=== PATIENT | male | born 1945 | race Caucasian/White ===

== ENCOUNTER 2017-12-04 13:06 | Inpatient (IN) | payer MEDICARE, OTHER, SELFPAY ==
[2017-12-04] VITALS (11 sets, daily range): BP systolic 117–193; BP diastolic 62–87; PULSE 71–88; RESP 16–20; TEMP 36.7–37.2; O2SAT 94–97; BMI 41.5; BMI 43.6
--- NOTE | 2017-12-04 14:10 | RAD_ITS ---
STUDY: X-RAY - PELVIS AND BILATERAL HIPS REASON FOR EXAM: Male, 72 years old. Bilateral hip pain. TECHNIQUE: Radiological exam, hip, bilateral, with pelvis when performed; minimum of 5 views COMPARISON: None. FINDINGS: There is a non-specific bowel gas pattern. Normal visualized soft tissue structures. Normal bilateral iliac wings, sacroiliac joints and visualized sacrum. Normal bilateral superior and inferior pubic rami. Normal pubic symphysis. Normal bilateral ischial tuberosities. Normal visualized right femoral head. There is osteoarthritic spur formation of the right acetabular rim. There is moderate articular joint space narrowing of the right hip. Normal visualized left femoral head. There is osteoarthritic spur formation of the left acetabular rim. There is moderate articular joint space narrowing of the left hip. RAD/Hips B/L min 2 views w/ Pelvis IMPRESSION: Osteoarthritis of both hip joints. Electronically Signed: Clovis Khan MD at 14:51 EDT Tel [phone], Service support ,
[2017-12-04 14:15] LABS: Mucous, Urine 0 SEEN /hpf (<or=2+)
[2017-12-04 14:24] LABS: Absolute Lymphocyte Count 1.45 X10^3/ul (0.83-4.51); Basophil# 0.02 X10^3/uL; Basophil% 0.1 % (0-1); Color, Urine Yellow (Yellow); Eosinophil# 0.01 X10^3/uL; Eosinophils% 0.1 % (0-5); Glucose, Dipstick Normal (Normal); Hematocrit 43.6 % (40-54); Hemoglobin 14.1 g/dl (13.0-16.5); Ketone-Dipstick 5 mg/dl (Negative); Leukocyte Esterase-Dipstick 500 /ul (Negative); Lymphocyte # 1.45 X10^3/ul (4.0); Lymphocyte % 9.3 % (19-41); Mean Corp Hgb Conc 32.3 g/gl (32-36); Mean Corpuscular Hgb 29.9 pg (27.0-32.0); Mean Corpuscular Volume 92.4 fL (80-94); Mean Platelet Vol. 11.4 fl (6.2-12.0); Monocyte# 1.01 X10^3/uL; Monocyte% 6.5 % (0-10); Neutrophil # 13.03 X10^3/uL (2.7-7.7); Neutrophil % 83.7 % (47-70); Nitrite-Dipstick Positive (Negative); Occult Blood-Urine 250 /ul (Negative); Platelet Count 171 K/mm3 (150-450); Protein-Dipstick 100 mg/dl (Negative); RBC Distribution Width CV 14.6 % (11.6-14.6); RBC Distribution Width SD 48.5 fl (35.1-43.9); Red Blood Count 4.72 M/mm3 (4.6-6.2); Urine Bilirubin Dipstick Negative (Negative); Urine Clarity Sl. Cloudy (Clear); Urine Urobilinogen 1 mg/dl (Normal); White Blood Count 15.6 K/mm3 (4.4-11.0)
--- NOTE | 2017-12-04 14:28 | RAD_ITS ---
STUDY: X-RAY - LUMBAR SPINE REASON FOR EXAM: Male, 72 years old. Weakness. TECHNIQUE: 3 view(s) of the lumbar spine were obtained. COMPARISON: None FINDINGS: Normal lumbar lordosis. There is no substantial scoliosis. There is a normal alignment of the vertebrae. Anterior spondylosis is seen at the L3-L4 level. Mild degree of disc space narrowing at the L4-L5 level. Facet joint osteoarthritis. The soft tissue structures are unremarkable. RAD/Lumbar Spine 2 or 3 Views IMPRESSION: Degenerative changes of the spine, as detailed above. Electronically Signed: Clovis Khan MD at 14:51 EDT Tel [phone], Service support ,
[2017-12-04 14:29] LABS: POSITIVE COUNT NO; POSITIVE DIFFERENTIAL NO; POSITIVE MORPHOLOGY NO
[2017-12-04 14:30] LABS: Bacteria 1+ /hpf (None Seen); Red Blood Cells-Urine 25-50 SEEN /hpf (0-5); Squamous Epithelial Cells - UA 0-5 SEEN /hpf (0-5); White Blood Cells 25-50 SEEN /hpf (0-5)
[2017-12-04 14:38] LABS: Anion Gap 11 (5-15); BUN 25 mg/dL (7-18); BUN/Creat Ratio 12.4 RATIO (10-20); Calcium,Total 9.2 mg/dL (8.5-10.1); Chloride 107 mmol/L (98-107); Creatinine, Serum 2.02 mg/dL (0.70-1.30); EST Glomerular Filtration Rate 35 mL/min (>60); Est Glom Filt Rate - Afr Amer 42 mL/min (>60); Estimated Creatinine Clearance 23.73 ml/min; Glucose 97 mg/dL (74-106); Potassium 3.8 mmol/L (3.5-5.1); Sodium Level 144 mmol/L (136-145)
--- NOTE | 2017-12-04 15:23 | HP.PCM_ITS ---
Problem List (1) Weakness Status: Acute (2) Dysuria Status: Acute History of Present Illness Date of Admission: 12/04/17 Chief Complaint: weakness, dysuria The patient is a 72 year old M with an extensive past medical history as listed below. He was admitted to the ED on 12/04/2017 with complaint of lethargy for 2 days. He also had associated frequency of urination and dysuria. He admitted to assisted fever and chills but denied any cough, any chest pain, any shortness of breath, abdominal pain, any diarrhea vomiting. Review of systems otherwise negative. In the ED, vitals were temperature of 98.1 Fahrenheit was otherwise unremarkable. CMP was significant for creatinine of 2.02 and CBC was significant for cytosis of 15.6. UA was positive for UTI and has been admitted to be managed for UTI. [] Past Medical History Allergies No Known Allergies Allergy (Verified 12/04/17 13:08) Home Medications: Ambulatory Orders Medication Instructions Recorded Allopurinol [Zyloprim] 100 mg PO BIDCM 12/04/17 Amlodipine Besylate [Norvasc] 5 mg PO DAILY 12/04/17 Aspirin E.C. [Ecotrin] 81 mg PO DAILY@0800 12/04/17 Carbidopa/Levodopa [Carbidopa-Levo 1 each PO TID 12/04/17 25-100 mg Odt] Docusate Sodium [Colace] 200 mg PO DAILY 12/04/17 Esomeprazole Magnesium 40 mg PO DAILY 12/04/17 Fluticasone 110 Mcg [Flovent (SP)] 1 puff INHALATION BID 12/04/17 Metformin HCl 500 mg PO DAILY 12/04/17 Metoprolol Succinate [Toprol Xl] 100 mg PO DAILY 12/04/17 Multivit-Min/FA/Vit K/Lycopene 1 each PO DAILY 12/04/17 [One-A-Day Men's 50 Plus Tablet] [place]-3 Fatty Acids/Fish Oil [Fish 1 each PO DAILY 12/04/17 Oil 1,000 mg Capsule] Ropinirole HCl [Requip] 1 mg PO TID 12/04/17 Surgical History: - - CABG, ablation for Afib Psychiatric History: No pertinent psych hx Lives: Spouse/ Significant Other Smoking Status: Former smoker Alcohol: None Drugs: None - *Family History Maternal History Items: Heart Disease, Hypertension Review of Systems Constitutional: Reports: Anorexia, Chills, Fever, Malaise, Weakness, Fatigue Eyes: Denies: Blurred vision HEENT: Denies: Head Aches, Sinus Congestion, Sinus Drainage Cardiovascular: Denies: Chest Pain, Palpitations Respiratory: Denies: Cough, Shortness of Breath, Shortness of breath at rest, Sputum production Gastrointestinal: Denies: Abdominal Pain, Nausea, Vomiting Genitourinary: Reports: Dysuria, Frequency. Denies: Retention, Urgency Musculoskeletal: Denies: Joint Pain, Joint Tenderness Skin: Denies: Rash, Wounds Neurological: Denies: Numbness, Tingling, Focal weakness Psychiatric: Denies: Anxiety, Depression, Homicidal Ideations, Suicidal Ideat ions Hematologic/ Lymphatic: Denies: Easy Bruising, Easy Bleeding VTE Information - Inpt Only VTE Present on Admission: No VTE Pharm Prophylaxis ordered?: Yes Patient Problems: Active and Suspected Problems Weakness (Acute) Dysuria (Acute) - Physical Exam General: Alert, Oriented x3, Cooperative HEENT: Atraumatic, PERRLA, EOMI, Normocephalic Oral: Dry Mucosa Neck: Supple, No JVD, Negative Carotid Bruits Lungs: Clear to auscultation, Normal air movement, No rhonchi, No wheeze, No rales Cardiovascular: Regular rate, Regular Rhythm, Normal S1, Normal S2, No murmurs Abdomen: Bowel Sounds Present, Soft, Non Tender, Non-Distended, No Hepato- splenomegaly, Obese Extremities: No clubbing, No cyanosis, Capillary Refill Less than 3 Seconds, - - mild 1+ bilateral pitting pedal edema Skin: No rashes, No breakdown Musculoskeletal: No Tenderness to Palpation of Joints or Extremities Lymphatic: No Cervical, Supraclavicular, or Inguinal Adenopathy Neurological: Cranial nerves II-XII grossly intact Psych/Mental Status: Normal Affect, Alert and oriented to time, place, person, mood and affect Vital Signs Temp Pulse Resp BP Pulse Ox 98.1 F 79 16 146/74 H 97 12/04/17 13:07 12/04/17 13:07 12/04/17 15:08 12/04/17 13:07 12/04/17 13:07 Oxygen Delivery Method Room Air Weight: 220 lb Body Mass Index (BMI) 41.5 Laboratory Tests Past 24 Hrs 1012/04/17 12/04/17 14:05 14:05 14:05 WBC 15.6 H RBC 4.72 Hgb 14.1 Hct 43.6 MCV 92.4 MCH 29.9 MCHC 32.3 RDW 14.6 RDW Differential 48.5 H Plt Count 171 MPV 11.4 Immature Gran % (Auto) 0.300 Neut % (Auto) 83.7 H Lymph % (Auto) 9.3 L [place] % (Auto) 6.5 Eos % (Auto) 0.1 Baso % (Auto) 0.1 Absolute Neuts (auto) 13.0 H Absolute Lymphs (auto) 1.45 Total Counted Not Reportable Sodium 144 Potassium 3.8 Chloride 107 Carbon Dioxide 26.0 Anion Gap 11 BUN 25 H Creatinine 2.02 H Estim Creat Clear Calc 23.73 Est GFR (MDRD) Af Amer 42 L Est GFR (MDRD) Non-Af 35 L BUN/Creatinine Ratio 12.4 Glucose 97 Calcium 9.2 Urine Color Yellow Urine Clarity Sl. Cloudy Urine pH 5.0 Ur Specific [place] 1.020 Urine Protein 100 H Urine Glucose (UA) Normal Urine Ketones 5 H Urine Occult Blood 250 H Urine Nitrite Positive H Urine Bilirubin Negative Urine Urobilinogen 1 H Ur Leukocyte Esterase 500 H Urine RBC 25-50 SEEN Urine WBC 25-50 SEEN Ur Squamous Epith Cells 0-5 SEEN Urine Bacteria 1+ Urine Mucus 0 SEEN Diagnostic Data Hip/Pelvis X-Ray 12/04/17 14:10 IMPRESSION: Osteoarthritis of both hip joints. Electronically Signed: Clovis Khan MD at 14:51 EDT Tel [phone], Service support , Lumbar Spine X-Ray 12/04/17 14:28 IMPRESSION: Degenerative changes of the spine, as detailed above. Electronically Signed: Clovis Khan MD at 14:51 EDT Tel [phone], Service support , Assessment/Plan All Active Problems Weakness (Acute) Dysuria (Acute) 72-year-old male presenting with lethargy, weakness and dysuria for 2 days. 1. UTI * had associated fever and chills * UA: LE of 500, wbc of 25-50, bacteria 1+ * admit to [facility] with telemetry * CBC showed leucocytosis with wbc of 15.6 * started on IV ceftriaxone in ED; will continue * Urine culture. * IV fluids normal saline @ 100cc/hr to rehydrate him * 2. CHIKA * Creatinine is 2.02 on admission. Baseline is not known. However patient is on metformin so this leads me to think that it is likely an AK I. * likely pre-renal due to decreased intake * hydrate with IVF and monitor Cr * renal USG * hold metformin * 3. Hypertension: on metoprolol 4. Afib s/p ablation: on aspirin. Not on any other oral anticoagulants as it was dced by her doctors at [facility] 5. Diabetes mellitus: metformin on hold o/a of CHIKA. ISS. ACcuchecks ACHS 6. Sleep apnea: on CPAP qhs 7. Gout: on allopurinol DVT prophylaxis: heparin Code status: full code. * Patient and counseled extensively about different types of CODE STATUS including DNR CCA, DNR CC and full code. Patient elects to be full code. Total [id number] time 18 minutes. * Code Visit Inpatient E&M: 05762 Init Hosp L3 Procedures: 89319 Advncd Care Plan 30 Min
--- NOTE | 2017-12-04 15:24 | ED.DCSUM_ITS ---
- ER Visit Summary Date of Service: 12/04/17 Chief Complaint: Weakness History of Present Illness: The patient is a 72 M with bilateral hip pain and leg weakness. Symptoms started today. The last time this happened he fell and he developed rhabdomyolysis. He did not fall this time, but was concerned catrachita use he could not ambulate at his home. He is complaining of occasional hip pain, but denies any now. Denies any back pain. Denies any back surgeries. Denies numbness or focal weakness. Denies fevers or recent illness. Physical Examination: Afebrile and vital signs unremarkable. Nontoxic and in no acute distress. Back is nontender. Hips nontender. Good range of motion. Strength 4 out of 5, symmetric in all lower extremity muscle groups. Sensation intact. Test Results: White count 15.6, BUN 25, creatinine 2.02. Urinalysis shows signs of infection. Cultures pending. X-rays of the pelvis and lumbar spine show chronic changes. Emergency Department Course and Treatment: Patient declined pain medicine. Workup showed a UTI. No evidence of sepsis. He was treated with Rocephin. Cultures were sent. It is possible this is causing his weakness. His x-rays are unremarkable. He does not have any recent trauma. Because of his inability to ambulate, the hospitalist was contacted for admission. Treatment Plan: As above Disposition: Admission Impression: 1. UTI 2. Generalized weakness This note was generated with [employer] dictation software. It may contain incorrect words, spelling, and punctuation that were not noted in review of the chart prior to signing ED Disposition - Plan for ED Patient: Chief Complaint: Back Referrals: Aleksandr Decker MD [Primary Care Provider] -
[2017-12-04] MEDS: 0.9% Normal Saline 1,000 ML 125 ML IV (17:18)
[2017-12-04] MEDS: 0.9% NaCl Peripheral Flush Adult/Peds IV (17:19)
[2017-12-04 17:31] LABS: Bedside Glucose 92 mg/dL (70-110)
[2017-12-04] MEDS: Ceftriaxone 1 GM/50 ML BAG IV (18:09)
[2017-12-04] MEDS: Allopurinol 100 MG Tablet PO (18:10)
[2017-12-04] MEDS: amLODIPine 5 MG Tablet PO (18:12)
[2017-12-04] MEDS: Carbidopa/Levodopa 25/100 Tablet PO (18:13)
[2017-12-04] MEDS: Budesonide Respules 0.5 MG/2 ML AMPUL.NEB. INHALATION (19:30)
[2017-12-04] MEDS: Glucerna Shake 120 ML LIQUID PO (21:43)
[2017-12-04] MEDS: Heparin Injection (Vial) 5,000 UNIT/ML VIAL 5000 UNIT SC (21:43)
[2017-12-04] MEDS: Pramipexole Di-HCl 0.5 MG Tablet PO (21:43)
[2017-12-04 21:51] LABS: Bedside Glucose 145 mg/dL (70-110)
[2017-12-05] VITALS (17 sets, daily range): BP systolic 126–165; BP diastolic 61–87; PULSE 71–87; RESP 15–24; TEMP 36.7–37.4; O2SAT 93–99
[2017-12-05] MEDS: 0.9% Normal Saline 1,000 ML 125 ML IV (01:30)
[2017-12-05 06:13] LABS: Absolute Neutrophil Count 12.2 X10^3/uL (2.0-7.7); Basophil# 0.01 X10^3/uL; Basophil% 0.1 % (0-1); Eosinophil# 0.05 X10^3/uL; Eosinophils% 0.4 % (0-5); Hematocrit 39.3 % (40-54); Hemoglobin 12.7 g/dl (13.0-16.5); Lymphocyte % 7.1 % (19-41); Mean Corp Hgb Conc 32.3 g/gl (32-36); Mean Corpuscular Hgb 29.8 pg (27.0-32.0); Mean Corpuscular Volume 92.3 fL (80-94); Mean Platelet Vol. 10.9 fl (6.2-12.0); Monocyte# 0.81 X10^3/uL; Monocyte% 5.8 % (0-10); Neutrophil # 12.18 X10^3/uL (2.7-7.7); Neutrophil % 86.4 % (47-70); Platelet Count 133 K/mm3 (150-450); RBC Distribution Width CV 14.7 % (11.6-14.6); RBC Distribution Width SD 48.6 fl (35.1-43.9); Red Blood Count 4.26 M/mm3 (4.6-6.2); White Blood Count 14.1 K/mm3 (4.4-11.0)
[2017-12-05] MEDS: Heparin Injection (Vial) 5,000 UNIT/ML VIAL 5000 UNIT SC ×3 (06:17→22:29)
[2017-12-05] MEDS: Carbidopa/Levodopa 25/100 Tablet PO ×3 (06:18→16:56)
[2017-12-05] MEDS: Pramipexole Di-HCl 0.5 MG Tablet PO ×3 (06:18→22:29)
[2017-12-05 06:26] LABS: POSITIVE COUNT NO; POSITIVE DIFFERENTIAL NO; POSITIVE MORPHOLOGY NO
[2017-12-05 06:31] LABS: Bedside Glucose 126 mg/dL (70-110)
[2017-12-05 06:33] LABS: Anion Gap 8 (5-15); BUN 20 mg/dL (7-18); BUN/Creat Ratio 13.5 RATIO (10-20); Calcium,Total 8.6 mg/dL (8.5-10.1); Chloride 107 mmol/L (98-107); Creatinine, Serum 1.48 mg/dL (0.70-1.30); EST Glomerular Filtration Rate 49 mL/min (>60); Est Glom Filt Rate - Afr Amer 60 mL/min (>60); Estimated Creatinine Clearance 32.39 ml/min; Glucose 122 mg/dL (74-106); Potassium 3.3 mmol/L (3.5-5.1); Sodium Level 141 mmol/L (136-145)
[2017-12-05] MEDS: Budesonide Respules 0.5 MG/2 ML AMPUL.NEB. INHALATION ×2 (07:14→18:43)
[2017-12-05] MEDS: Docusate Sodium 100 MG Capsule 200 MG PO (07:41)
[2017-12-05] MEDS: Multivitamins,Therapeutic Tablet 1 TABLET PO (07:41)
[2017-12-05] MEDS: Allopurinol 100 MG Tablet PO ×2 (07:41→16:56)
[2017-12-05] MEDS: Pantoprazole Sodium 40 MG Tablet PO (07:41)
[2017-12-05] MEDS: Omega-3 Acid Ethyl Esters 1 GM Capsule PO (07:41)
[2017-12-05] MEDS: Aspirin E.C. 81 MG Tablet PO (07:41)
[2017-12-05] MEDS: Metoprolol(XL)Succ 100 MG Tablet PO (07:42)
[2017-12-05] MEDS: Glucerna Shake 120 ML LIQUID PO ×3 (07:46→16:59)
[2017-12-05] MEDS: Ceftriaxone 1 GM/50 ML BAG IV ×2 (09:54→22:29)
--- NOTE | 2017-12-05 11:15 | CASEMGMT ---
RN CM Face to Face with patient for initial transition planning/care coordination assessment. RN CM introduced self and role at [facility]. Patient lying in bed, alert and oriented. Patient willing to participate in assessment and is able to answer all questions appropriately. Care providers, pharmacy, and demographics verified. Patient wishes to discharge home, denies need for home health at this time. Patient states he has no further needs or concerns at this time. CM to follow for discharge planning needs that may arise. PCP: Jeronimo Specialists: None Preferred Pharmacy: [facility] Insurance: [facility] Living Will/HPOA: Yes, Gely KELLY: . Also has son Living Arrangements: Patient lives with in 2 story home and was independent prior to hospitalization Transportation: Self or son DME/HHC: Patient states that he has shower chair, raised toilet seat, cane, walker, and CPap at home. Patient denies HHC Disposition Plan: Patient to discharge home with family support and follow-up plans in place. Will monitor therapy notes for additional discharge needs. Patti BHATN, RN, CM
--- NOTE | 2017-12-05 11:51 | PCM.PN.HOSP ---
Patient Problems: Active and Suspected Problems Weakness (Acute) Dysuria (Acute) Subjective: Doing well, abdominal pain is controlled, no nausea or vomiting and afebrile Vitals/I&O's: Vital Signs Temp Pulse Resp BP Pulse Ox 99.4 F H 79 22 H 152/71 H 93 12/05/17 07:30 12/05/17 07:59 12/05/17 07:30 12/05/17 07:30 12/05/17 07:54 Oxygen Delivery Method Room Air Weight: 230 lb 12.796 oz Body Mass Index (BMI) 43.6 Intake and Output for Last 24 Hours 12/03/17 12/04/17 12/05/17 23:59 23:59 23:59 Intake Total 450 / 450 1889 / 1890 Balance 450 / 450 1889 / 1889 General: Alert, Oriented x3, Cooperative, No apparent distress HEENT: Atraumatic, EOMI, Normocephalic Oral: Moist Mucosa Neck: Supple, No JVD Lungs: Clear to auscultation, Normal air movement, No rhonchi, No wheeze, No rales Cardiovascular: Regular rate, Regular Rhythm, Normal S1, Normal S2, No murmurs Abdomen: Soft, Non Tender, Non-Distended, No Hepato-splenomegaly Extremities: No edema, Capillary Refill Less than 3 Seconds Skin: No rashes, No breakdown Psych/Mental Status: Normal Affect, Appropriate Microbiology Past 72 Hours 12/04/17 14:05 Urine, Clean Catch Urine Culture - Preliminary Presumptive E. coli Laboratory Results 12/04/17 14:05: WBC 15.6 H, RBC 4.72, Hgb 14.1, Hct 43.6, MCV 92.4, MCH 29.9, MCHC 32.3, RDW 14.6, RDW Differential 48.5 H, Plt Count 171, MPV 11.4, Immature Gran % (Auto) 0.300, Neut % (Auto) 83.7 H, Lymph % (Auto) 9.3 L, [place] % (Auto) 6.5, Eos % (Auto) 0.1, Baso % (Auto) 0.1, Absolute Neuts (auto) 13.0 H, Absolute Lymphs (auto) 1.45, Total Counted Not Reportable 12/04/17 14:05: Sodium 144, Potassium 3.8, Chloride 107, Carbon Dioxide 26.0, Anion Gap 11, BUN 25 H, Creatinine 2.02 H, Estim Creat Clear Calc 23.73, Est GFR (MDRD) Af Amer 42 L, Est GFR (MDRD) Non-Af 35 L, BUN/Creatinine Ratio 12.4, Glucose 97, Calcium 9.2 12/04/17 14:05: Urine Color Yellow, Urine Clarity Sl. Cloudy, Urine pH 5.0, Ur Specific [place] 1.020, Urine Protein 100 H, Urine Glucose (UA) Normal, Urine Ketones 5 H, Urine Occult Blood 250 H, Urine Nitrite Positive H, Urine Bilirubin Negative, Urine Urobilinogen 1 H, Ur Leukocyte Esterase 500 H, Urine RBC 25-50 SEEN, Urine WBC 25-50 SEEN, Ur Squamous Epith Cells 0-5 SEEN, Urine Bacteria 1+, Urine Mucus 0 SEEN 12/04/17 16:52: POC Glucose 92 12/04/17 21:39: POC Glucose 145 H 12/05/17 05:52: WBC 14.1 H, RBC 4.26 L, Hgb 12.7 L, Hct 39.3 L, MCV 92.3, MCH 29.8, MCHC 32.3, RDW 14.7 H, RDW Differential 48.6 H, Plt Count 133 L, MPV 10.9, Immature Gran % (Auto) 0.200, Neut % (Auto) 86.4 H, Lymph % (Auto) 7.1 L, [place] % (Auto) 5.8, Eos % (Auto) 0.4, Baso % (Auto) 0.1, Absolute Neuts (auto) 12.2 H, Absolute Lymphs (auto) 1.00, Total Counted Not Reportable 12/05/17 05:52: Sodium 141, Potassium 3.3 L, Chloride 107, Carbon Dioxide 26.0, Anion Gap 8, BUN 20 H, Creatinine 1.48 H, Estim Creat Clear Calc 32.39, Est GFR (MDRD) Af Amer 60, Est GFR (MDRD) Non-Af 49 L, BUN/Creatinine Ratio 13.5, Glucose 122 H, Calcium 8.6 12/05/17 06:22: POC Glucose 126 H Current [facility]ations [facility] Last Admin: 12/05/17 07:41 Dose: 100 mg Amlodipine Besylate (Norvasc) 5 mg PO QHS [facility] Aspirin (Ecotrin) 81 mg PO DAILY@0800 [facility] Last Admin: 12/05/17 07:41 Dose: 81 mg Budesonide (Pulmicort Aerosol) 0.5 mg INHALATION Q12H.RT [facility] Last Admin: 12/05/17 07:14 Dose: 0.5 mg Carbidopa/Levodopa (Sinemet) 1 tablet PO TIDAC [facility] Last Admin: 12/05/17 06:18 Dose: 1 tablet Dextrose (D50w Syringe) 0 gm IV X1 PRN; Protocol PRN Reason: Hypoglycemia Docusate Sodium (Colace) 200 mg PO DAILY [facility] Last Admin: 12/05/17 07:41 Dose: 200 mg Glucagon () 1 mg IM .X1 PRN PRN Reason: Hypoglycemia Heparin Sodium (Porcine) (Heparin Na) 5,000 unit SC Q8 [facility] Last Admin: 12/05/17 06:17 Dose: 5,000 unit Ceftriaxone Sodium (Rocephin) 1 gm in 50 mls @ 100 mls/hr IV Q12 [facility] Last Admin: 12/05/17 09:54 Dose: 100 mls/hr Insulin Human Lispro (Humalog Kwikpen (Bkc)) 0 unit SQ ACHS [facility]; Protocol Last Admin: 12/05/17 06:23 Dose: Not Given Magnesium Hydroxide (Milk Of Magnesia) 30 ml PO DAILY PRN PRN PRN Reason: Constipation Metoprolol Succinate (Toprol Xl (Beta Sharon)) 100 mg PO DAILY [facility] Last Admin: 12/05/17 07:42 Dose: 100 mg Multivitamins (Multivitamin) 1 tablet PO DAILY@0800 [facility] Last Admin: 12/05/17 07:41 Dose: 1 tablet Nutritional Formula (Lactose Free) (Glucerna Shake) 120 ml PO 4X/DAY [facility] Last Admin: 12/05/17 07:46 Dose: 120 ml Osoza-4-Aufy Ethyl Esters (Lovaza) 1 gm PO DAILY [facility] Last Admin: 12/05/17 07:41 Dose: 1 gm Pantoprazole Sodium (Protonix) 40 mg PO DAILY [facility] Last Admin: 12/05/17 07:41 Dose: 40 mg Pramipexole Dihydrochloride (Mirapex) 0.5 mg PO TID [facility] Last Admin: 12/05/17 06:18 Dose: 0.5 mg Sodium Chloride () 5 - 30 ml IV UD PRN PRN Reason: SALINE FLUSH Last Admin: 12/04/17 17:19 Dose: 10 ml Medical Necessity - Tobacco Use Smoking Status: Former smoker Assessment/Plan All Active Problems Weakness (Acute) Dysuria (Acute) 1. UTI/Weakness/CHIKA - Currently feels better with rocephin - Cx is pending for sensitivities for the E. coli - Will evaluate with PT after another day of abx to see if his debility improves - If not may need SNF at [place] - IVF@100 - Creatinine improved to 1.48 from 2.02 - Renal US pending - Will likely need outpatient urology 2. HTN/Afib s/p ablation - Stable - c/w metoprolol and aspirin 3. DM - Hold metformin - SSI 4. Gout - stable - c/w allopurinol DVT prophylaxis: heparin Code Visit Inpatient E&M: 68654 Subs Hosp L2
--- NOTE | 2017-12-05 11:57 | PN_ITS ---
Patient Problems: Active and Suspected Problems Weakness (Acute) Dysuria (Acute) Subjective: Doing well, abdominal pain is controlled, no nausea or vomiting and afebrile Vitals/I&O's: Vital Signs Temp Pulse Resp BP Pulse Ox 99.4 F H 79 22 H 152/71 H 93 12/05/17 07:30 12/05/17 07:59 12/05/17 07:30 12/05/17 07:30 12/05/17 07:54 Oxygen Delivery Method Room Air Weight: 230 lb 12.796 oz Body Mass Index (BMI) 43.6 Intake and Output for Last 24 Hours 12/03/17 12/04/17 12/05/17 23:59 23:59 23:59 Intake Total 450 / 450 1889 / 1890 Balance 450 / 450 1889 / 1889 General: Alert, Oriented x3, Cooperative, No apparent distress HEENT: Atraumatic, EOMI, Normocephalic Oral: Moist Mucosa Neck: Supple, No JVD Lungs: Clear to auscultation, Normal air movement, No rhonchi, No wheeze, No rales Cardiovascular: Regular rate, Regular Rhythm, Normal S1, Normal S2, No murmurs Abdomen: Soft, Non Tender, Non-Distended, No Hepato-splenomegaly Extremities: No edema, Capillary Refill Less than 3 Seconds Skin: No rashes, No breakdown Psych/Mental Status: Normal Affect, Appropriate Microbiology Past 72 Hours 12/04/17 14:05 Urine, Clean Catch Urine Culture - Preliminary Presumptive E. coli Laboratory Results 12/04/17 14:05: WBC 15.6 H, RBC 4.72, Hgb 14.1, Hct 43.6, MCV 92.4, MCH 29.9, MCHC 32.3, RDW 14.6, RDW Differential 48.5 H, Plt Count 171, MPV 11.4, Immature Gran % (Auto) 0.300, Neut % (Auto) 83.7 H, Lymph % (Auto) 9.3 L, [place] % (Auto) 6.5, Eos % (Auto) 0.1, Baso % (Auto) 0.1, Absolute Neuts (auto) 13.0 H, Absolute Lymphs (auto) 1.45, Total Counted Not Reportable 12/04/17 14:05: Sodium 144, Potassium 3.8, Chloride 107, Carbon Dioxide 26.0, Anion Gap 11, BUN 25 H, Creatinine 2.02 H, Estim Creat Clear Calc 23.73, Est GFR (MDRD) Af Amer 42 L, Est GFR (MDRD) Non-Af 35 L, BUN/Creatinine Ratio 12.4, Glucose 97, Calcium 9.2 12/04/17 14:05: Urine Color Yellow, Urine Clarity Sl. Cloudy, Urine pH 5.0, Ur Specific [place] 1.020, Urine Protein 100 H, Urine Glucose (UA) Normal, Urine Ketones 5 H, Urine Occult Blood 250 H, Urine Nitrite Positive H, Urine Bilirubin Negative, Urine Urobilinogen 1 H, Ur Leukocyte Esterase 500 H, Urine RBC 25-50 SEEN, Urine WBC 25-50 SEEN, Ur Squamous Epith Cells 0-5 SEEN, Urine Bacteria 1+, Urine Mucus 0 SEEN 12/04/17 16:52: POC Glucose 92 12/04/17 21:39: POC Glucose 145 H 12/05/17 05:52: WBC 14.1 H, RBC 4.26 L, Hgb 12.7 L, Hct 39.3 L, MCV 92.3, MCH 29.8, MCHC 32.3, RDW 14.7 H, RDW Differential 48.6 H, Plt Count 133 L, MPV 10.9, Immature Gran % (Auto) 0.200, Neut % (Auto) 86.4 H, Lymph % (Auto) 7.1 L, [place] % (Auto) 5.8, Eos % (Auto) 0.4, Baso % (Auto) 0.1, Absolute Neuts (auto) 12.2 H, Absolute Lymphs (auto) 1.00, Total Counted Not Reportable 12/05/17 05:52: Sodium 141, Potassium 3.3 L, Chloride 107, Carbon Dioxide 26.0, Anion Gap 8, BUN 20 H, Creatinine 1.48 H, Estim Creat Clear Calc 32.39, Est GFR (MDRD) Af Amer 60, Est GFR (MDRD) Non-Af 49 L, BUN/Creatinine Ratio 13.5, Glucose 122 H, Calcium 8.6 12/05/17 06:22: POC Glucose 126 H Current [facility] Last Admin: 12/05/17 07:41 Dose: 100 mg Amlodipine Besylate (Norvasc) 5 mg PO QHS [facility] Aspirin (Ecotrin) 81 mg PO DAILY@0800 [facility] Last Admin: 12/05/17 07:41 Dose: 81 mg Budesonide (Pulmicort Aerosol) 0.5 mg INHALATION Q12H.RT [facility] Last Admin: 12/05/17 07:14 Dose: 0.5 mg Carbidopa/Levodopa (Sinemet) 1 tablet PO TIDAC [facility] Last Admin: 12/05/17 06:18 Dose: 1 tablet Dextrose (D50w Syringe) 0 gm IV X1 PRN; Protocol PRN Reason: Hypoglycemia Docusate Sodium (Colace) 200 mg PO DAILY [facility] Last Admin: 12/05/17 07:41 Dose: 200 mg Glucagon () 1 mg IM .X1 PRN PRN Reason: Hypoglycemia Heparin Sodium (Porcine) (Heparin Na) 5,000 unit SC Q8 [facility] Last Admin: 12/05/17 06:17 Dose: 5,000 unit Ceftriaxone Sodium (Rocephin) 1 gm in 50 mls @ 100 mls/hr IV Q12 [facility] Last Admin: 12/05/17 09:54 Dose: 100 mls/hr Insulin Human Lispro (Humalog Kwikpen (Bkc)) 0 unit SQ ACHS [facility]; Protocol Last Admin: 12/05/17 06:23 Dose: Not Given Magnesium Hydroxide (Milk Of Magnesia) 30 ml PO DAILY PRN PRN PRN Reason: Constipation Metoprolol Succinate (Toprol Xl (Beta [place])) 100 mg PO DAILY [facility] Last Admin: 12/05/17 07:42 Dose: 100 mg Multivitamins (Multivitamin) 1 tablet PO DAILY@0800 [facility] Last Admin: 12/05/17 07:41 Dose: 1 tablet Nutritional Formula (Lactose Free) (Glucerna Shake) 120 ml PO 4X/DAY [facility] Last Admin: 12/05/17 07:46 Dose: 120 ml Hnclv-[id number] Ethyl Esters (Lovaza) 1 gm PO DAILY [facility] Last Admin: 12/05/17 07:41 Dose: 1 gm Pantoprazole Sodium (Protonix) 40 mg PO DAILY [facility] Last Admin: 12/05/17 07:41 Dose: 40 mg Pramipexole Dihydrochloride (Mirapex) 0.5 mg PO TID [facility] Last Admin: 12/05/17 06:18 Dose: 0.5 mg Sodium Chloride () 5 - 30 ml IV UD PRN PRN Reason: SALINE FLUSH Last Admin: 12/04/17 17:19 Dose: 10 ml Medical Necessity - Tobacco Use Smoking Status: Former smoker Assessment/Plan All Active Problems Weakness (Acute) Dysuria (Acute) 1. UTI/Weakness/CHIKA - Currently feels better with rocephin - Cx is pending for sensitivities for the E. coli - Will evaluate with PT after another day of abx to see if his debility improves - If not may need SNF at [place] - IVF@100 - Creatinine improved to 1.48 from 2.02 - Renal US pending - Will likely need outpatient urology 2. HTN/Afib s/p ablation - Stable - c/w metoprolol and aspirin 3. DM - Hold metformin - SSI 4. Gout - stable - c/w allopurinol DVT prophylaxis: heparin Code Visit Inpatient E&M: 50953 Subs Hosp L2
[2017-12-05 12:10] LABS: Bedside Glucose 111 mg/dL (70-110)
[2017-12-05 17:06] LABS: Bedside Glucose 117 mg/dL (70-110)
[2017-12-05] MEDS: BRIMONIDINE 0.2% 5ML BOTTLE 1 DRP OPHTHALMIC (22:28)
[2017-12-05] MEDS: amLODIPine 5 MG Tablet PO (22:29)
[2017-12-05] MEDS: 0.9% NaCl Peripheral Flush Adult/Peds IV (22:30)
[2017-12-05 22:51] LABS: Bedside Glucose 103 mg/dL (70-110)
[2017-12-06] VITALS (10 sets, daily range): BP systolic 151–165; BP diastolic 70–90; PULSE 71–91; RESP 16–20; TEMP 36.7–37.1; O2SAT 94–95
--- NOTE | 2017-12-06 05:49 | EKG12_ITS ---
Test Reason : RHYTHM CHANGE Blood Pressure : / mmHG Vent. Rate : 082 BPM Atrial Rate : 082 BPM P-R Int : 178 ms QRS Dur : 132 ms QT Int : 438 ms P-R-T Axes : 019 131 009 degrees QTc Int : 511 ms Normal sinus rhythm Right bundle branch block Left posterior fascicular block Bifascicular block Abnormal ECG No previous ECGs available Confirmed by BUDDY OLMEDO ([id number]), editor farm journal PAT FLORES ([id number]) on 12/12/2017 11:36:52 AM Referred By: BAHMAN Confirmed By:BUDDY OLMEDO
[2017-12-06 06:09] LABS: Absolute Lymphocyte Count 1.18 X10^3/ul (0.83-4.51); Absolute Neutrophil Count 8.2 X10^3/uL (2.0-7.7); Basophil# 0.03 X10^3/uL; Basophil% 0.3 % (0-1); Eosinophils% 1.9 % (0-5); Hematocrit 41.7 % (40-54); Hemoglobin 13.1 g/dl (13.0-16.5); Lymphocyte # 1.18 X10^3/ul (4.0); Lymphocyte % 11.3 % (19-41); Mean Corp Hgb Conc 31.4 g/gl (32-36); Mean Corpuscular Hgb 29.8 pg (27.0-32.0); Mean Corpuscular Volume 94.8 fL (80-94); Mean Platelet Vol. 11.3 fl (6.2-12.0); Monocyte% 7.7 % (0-10); Neutrophil # 8.19 X10^3/uL (2.7-7.7); Neutrophil % 78.4 % (47-70); Platelet Count 122 K/mm3 (150-450); RBC Distribution Width CV 14.9 % (11.6-14.6); RBC Distribution Width SD 48.5 fl (35.1-43.9); White Blood Count 10.4 K/mm3 (4.4-11.0)
[2017-12-06 06:14] LABS: POSITIVE COUNT NO; POSITIVE DIFFERENTIAL NO; POSITIVE MORPHOLOGY NO
[2017-12-06] MEDS: Heparin Injection (Vial) 5,000 UNIT/ML VIAL 5000 UNIT SC ×2 (06:23→14:02)
[2017-12-06] MEDS: Carbidopa/Levodopa 25/100 Tablet PO ×2 (06:23→11:37)
[2017-12-06] MEDS: Pramipexole Di-HCl 0.5 MG Tablet PO ×2 (06:23→14:02)
[2017-12-06 06:31] LABS: Anion Gap 7 (5-15); BUN 18 mg/dL (7-18); BUN/Creat Ratio 12.5 RATIO (10-20); Calcium,Total 8.5 mg/dL (8.5-10.1); Chloride 108 mmol/L (98-107); Creatinine, Serum 1.44 mg/dL (0.70-1.30); EST Glomerular Filtration Rate 51 mL/min (>60); Est Glom Filt Rate - Afr Amer 62 mL/min (>60); Estimated Creatinine Clearance 33.29 ml/min; Glucose 104 mg/dL (74-106); Potassium 4.1 mmol/L (3.5-5.1); Sodium Level 136 mmol/L (136-145)
[2017-12-06 07:05] LABS: Bedside Glucose 94 mg/dL (70-110)
[2017-12-06] MEDS: Budesonide Respules 0.5 MG/2 ML AMPUL.NEB. INHALATION (07:23)
[2017-12-06] MEDS: Omega-3 Acid Ethyl Esters 1 GM Capsule PO (08:19)
[2017-12-06] MEDS: Pantoprazole Sodium 40 MG Tablet PO (08:19)
[2017-12-06] MEDS: Allopurinol 100 MG Tablet PO (08:19)
[2017-12-06] MEDS: Aspirin E.C. 81 MG Tablet PO (08:19)
[2017-12-06] MEDS: BRIMONIDINE 0.2% 5ML BOTTLE 1 DRP OPHTHALMIC (08:19)
[2017-12-06] MEDS: Metoprolol(XL)Succ 100 MG Tablet PO (08:19)
[2017-12-06] MEDS: Docusate Sodium 100 MG Capsule 200 MG PO (08:19)
[2017-12-06] MEDS: Glucerna Shake 120 ML LIQUID PO (08:20)
[2017-12-06] MEDS: Multivitamins,Therapeutic Tablet 1 TABLET PO (08:20)
[2017-12-06] MEDS: Ceftriaxone 1 GM/50 ML BAG IV (10:31)
[2017-12-06] MEDS: 0.9% NaCl Peripheral Flush Adult/Peds IV (10:31)
[2017-12-06 11:46] LABS: Bedside Glucose 129 mg/dL (70-110)
[2017-12-06] MEDS: Magnesium Hydroxide 30 ML UDC PO (14:02)
--- NOTE | 2017-12-06 14:24 | DCINST_ITS ---
- Discharge Diagnoses Current Active Problems: Current Active and Chronic Problems Weakness (Acute) Dysuria (Acute) You will use the following diet at home:: Calorie/Carbohydrate Controlled (specify 1200, 1400, etc) Your food should be the consistency of: Regular Your liquids should be the consistency of: Regular/Thin Discharge Activity: No Restrictions Call your doctor if you observe: Fever of 101 or Higher, Inability to urinate Allergies/Adverse Reactions: Allergies No Known Allergies Allergy (Verified 12/04/17 13:08) Medications to take at Discharge Allopurinol [Zyloprim] 100 mg PO BIDCM 12/04/17 Amlodipine Besylate [Norvasc] 5 mg PO DAILY 12/04/17 Aspirin E.C. [Ecotrin] 81 mg PO DAILY@0800 12/04/17 Carbidopa/Levodopa [Carbidopa-Levo 25-100 mg Odt] 1 each PO TID 12/04/17 Docusate Sodium [Colace] 200 mg PO DAILY 12/04/17 Esomeprazole Magnesium 40 mg PO DAILY 12/04/17 Fluticasone 110 Mcg [Flovent 110 Mcg] 1 puff INHALATION BID 12/04/17 Metformin HCl 500 mg PO DAILY 12/04/17 Metoprolol Succinate [Toprol Xl] 100 mg PO DAILY 12/04/17 Multivit-Min/FA/Vit K/Lycopene [One-A-Day Men's 50 Plus Tablet] 1 each PO DAILY 12/04/17 [place]-3 Fatty Acids/Fish Oil [Fish Oil 1,000 mg Capsule] 1 each PO DAILY 12/04/17 Ropinirole HCl [Requip] 1 mg PO TID 12/04/17 Brimonidine Tartrate 0.2% [Brimonidine 0.2% 5Ml Bottle] 1 drop OPHTHALMIC BID 12/05/17 Cephalexin [Keflex] 500 mg PO TID #15 capsule 12/06/17 The following prescriptions were given: Cephalexin [Keflex] 500 mg PO TID #15 capsule Primary Care Physician: Aleksandr Decker MD [Primary Care Provider] - Please follow up with your Primary Care Physician in: in 3-5 days Test Results: Test results from this visit will be discussed in further detail at your follow- up appointment, if applicable.
--- NOTE | 2017-12-06 14:25 | PCM.DC.SUM ---
Discharge Date and Diagnosis - Problem List Patient Problems: Active and Suspected Problems Weakness (Acute) Dysuria (Acute) Date of Admission: 12/04/17 Date of Discharge: 12/06/17 - Primary Discharge Diagnosis Active and Suspected Problems Weakness (Acute) Dysuria (Acute) Hospital Course and Treatment Imaging Results: B/L HIP XR: IMPRESSION: Osteoarthritis of both hip joints. Lumbar Spine XR: IMPRESSION: Degenerative changes of the spine, as detailed above. Consults: None Operations: None Procedures: None Summary of Care Provided: Per HPI: The patient is a 72 year old M with an extensive past medical history as listed below. He was admitted to the ED on 12/04/2017 with complaint of lethargy for 2 days. He also had associated frequency of urination and dysuria. He admitted to assisted fever and chills but denied any cough, any chest pain, any shortness of breath, abdominal pain, any diarrhea vomiting. Review of systems otherwise negative. In the ED, vitals were temperature of 98.1 Fahrenheit was otherwise unremarkable. CMP was significant for creatinine of 2.02 and CBC was significant for cytosis of 15.6. UA was positive for UTI and has been admitted to be managed for UTI. Vital Signs - 24 hr Temp Pulse Resp BP BP Pulse Ox 12/06/17 08:19 85 12/06/17 08:00 91 12/06/17 07:45 98.7 F 81 18 159/90 H 95 12/06/17 07:23 82 16 94 12/06/17 05:34 80 12/06/17 03:38 78 158/70 H 94 12/06/17 02:01 98.1 F 86 20 H 165/80 H 95 12/06/17 00:05 79 12/05/17 23:20 74 15 95 12/05/17 22:26 71 159/80 H 12/05/17 20:17 98.1 F 78 20 H 165/81 H 94 12/05/17 20:06 74 12/05/17 18:44 71 20 H 12/05/17 16:58 73 General: Alert, Oriented x3, Cooperative, No apparent distress HEENT: Atraumatic, EOMI, Normocephalic Oral: Moist Mucosa Neck: Supple, No JVD Lungs: Clear to auscultation, Normal air movement, No rhonchi, No wheeze, No rales Cardiovascular: Regular rate, Regular Rhythm, Normal S1, Normal S2, No murmurs Abdomen: Soft, Non Tender, Non-Distended, No Hepato-splenomegaly Extremities: No edema, Capillary Refill Less than 3 Seconds Skin: No rashes, No breakdown Psych/Mental Status: Normal Affect, Appropriate Hopsital Course: 1. UTI/Weakness/CHIKA - Presented with weakness and likely CHIKA though unable to tell what his baseline is since we dont have any records. He was started on rocephin and the urine culture returned with a jewell-sensitive E. coli. He walked well with OT and did want to go home, so he was discharged on keflex 500 mg TID for 5 days with PCP follow-up. On the day of discharge, his creatinine was 1.44 down from 2.02 on admission. 2. His other diagnoses were evaluated and his home medications were continued where appropriate Patient Problems: Active and Suspected Problems Weakness (Acute) Dysuria (Acute) - Physical Exam Vital Signs Temp Pulse Resp BP Pulse Ox 98.7 F 85 18 159/90 H 95 12/06/17 07:45 12/06/17 08:19 12/06/17 07:45 12/06/17 07:45 12/06/17 07:45 Oxygen Delivery Method Room Air Weight: 230 lb 12.796 oz Body Mass Index (BMI) 43.6 Intake and Output for Last 24 Hours 12/04/17 12/05/17 12/06/17 23:59 23:59 23:59 Intake Total 450 / 450 3788 / 3788 884.3 / 884.3 Balance 450 / 450 3788 / 3788 884.3 / 884.3 Microbiology Past 72 Hours 12/04/17 14:05 Urine Culture - Final Urine, Clean Catch Presumptive E. coli Laboratory Tests Past 24 Hrs 12/06/17 12/06/17 05:48 05:48 WBC 10.4 RBC 4.40 L Hgb 13.1 Hct 41.7 MCV 94.8 H MCH 29.8 MCHC 31.4 L RDW 14.9 H RDW Differential 48.5 H Plt Count 122 L MPV 11.3 Immature Gran % (Auto) 0.400 Neut % (Auto) 78.4 H Lymph % (Auto) 11.3 L [place] % (Auto) 7.7 Eos % (Auto) 1.9 Baso % (Auto) 0.3 Absolute Neuts (auto) 8.2 H Absolute Lymphs (auto) 1.18 Total Counted Not Reportable Sodium 136 Potassium 4.1 Chloride 108 H Carbon Dioxide 21.0 Anion Gap 7 BUN 18 Creatinine 1.44 H Estim Creat Clear Calc 33.29 Est GFR (MDRD) Af Amer 62 Est GFR (MDRD) Non-Af 51 L BUN/Creatinine Ratio 12.5 Glucose 104 Calcium 8.5 POC Glucose 12/06/17 12/06/17 12/05/17 11:33 06:20 22:28 POC Glucose 129 H 94 103 12/05/17 16:52 POC Glucose 117 H Discharge Activity: No Restrictions Call your doctor if you observe: Fever of 101 or Higher, Inability to urinate Home Medications: Medications to take at Discharge Allopurinol [Zyloprim] 100 mg PO BIDCM 12/04/17 Amlodipine Besylate [Norvasc] 5 mg PO DAILY 12/04/17 Aspirin E.C. [Ecotrin] 81 mg PO DAILY@0800 12/04/17 Carbidopa/Levodopa [Carbidopa-Levo 25-100 mg Odt] 1 each PO TID 12/04/17 Docusate Sodium [Colace] 200 mg PO DAILY 12/04/17 Esomeprazole Magnesium 40 mg PO DAILY 12/04/17 Fluticasone 110 Mcg [Flovent 110 Mcg] 1 puff INHALATION BID 12/04/17 Metformin HCl 500 mg PO DAILY 12/04/17 Metoprolol Succinate [Toprol Xl] 100 mg PO DAILY 12/04/17 Multivit-Min/FA/Vit K/Lycopene [One-A-Day Men's 50 Plus Tablet] 1 each PO DAILY 12/04/17 [place]-3 Fatty Acids/Fish Oil [Fish Oil 1,000 mg Capsule] 1 each PO DAILY 12/04/17 Ropinirole HCl [Requip] 1 mg PO TID 12/04/17 Brimonidine Tartrate 0.2% [Brimonidine 0.2% 5Ml Bottle] 1 drop OPHTHALMIC BID 12/05/17 Cephalexin [Keflex] 500 mg PO TID #15 capsule 12/06/17 Following Prescrptions Were Given to Patient: Cephalexin [Keflex] 500 mg PO TID #15 capsule Primary Care Physician: Aleksandr Decker MD [Primary Care Provider] - Please follow up with your Primary Care Physician in: in 3-5 days Disposition: Home Minutes spent on discharge:: 35 Patient Condition:: Good Medical Necessity - Tobacco Use Smoking Status: Former smoker Meaningful Use Info Meaningful Use Diagnoses (Choose all that apply): None applicable Code Visit Inpatient E&M: 99835 Disch Hosp
--- NOTE | 2017-12-06 14:32 | NURSING ---
spoke with patient Gely. explained that pt is being discharged today. 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
--- NOTE | 2017-12-06 14:37 | CASEMGMT ---
FER GALINDO followed up with patient regarding discharge plans. Patient walked 155 ft contact guard assist. Patient states he would like to go home and declined need for HHC. FER GALINDO updated patient that should he reconsider and want HHC, he could follow-up with PCP. Patient requested FER GALINDO to assist him to restroom. FER GALINDO assisted patient to restroom with call light in reach and updated FER Orozco and ANUP Cruz. FER GALINDO will continue to follow this paient and plan for a safe discharge.
== END 2017-12-06 16:57 | disposition home or self-care (01) | DRG 690 ==
LOC: ED 14:01 → MS3 15:35
PROVIDERS: Admitting Provider Student in an Organized Health Care Education/Training Program; Emergency Provider Emergency Medicine; Visit Provider Family Medicine
DX: N39.0 Urinary tract infection, site not specified (principal); N17.9 Acute kidney failure, unspecified; Z68.41 Body mass index [BMI] 40.0-44.9, adult; Z79.82 Long term (current) use of aspirin; I10 Essential (primary) hypertension; E11.9 Type 2 diabetes mellitus without complications; Z79.84 Long term (current) use of oral hypoglycemic drugs; M10.9 Gout, unspecified; G47.30 Sleep apnea, unspecified; Z87.891 Personal history of nicotine dependence; B96.20 Unspecified Escherichia coli [E. coli] as the cause of diseases classified elsewhere; E66.9 Obesity, unspecified
CPT/HCPCS: 36415; 72100; 73521; 80048; 81001; 82962; 85025; 87086; 87088; 87186; 93005; 94640; 94660; 97162; 97165; 97530; 97802; 99285; J7030; A4216

== ENCOUNTER 2018-01-04 21:48 | Emergency (ER) | payer MEDICARE, OTHER, SELFPAY ==
[2018-01-04 21:49] VITALS: BP 192/113; PULSE 73; RESP 20; TEMP 36.2; O2SAT 95; BMI 43.4
--- NOTE | 2018-01-04 21:52 | RAD_ITS ---
STUDY: X-RAY - LEFT SHOULDER REASON FOR EXAM: Male, 72 years old. Fall. TECHNIQUE: 3 view(s) of the shoulder. COMPARISON: None. FINDINGS: There is a nondisplaced fracture through the greater tuberosity. There is a probable mildly impacted fracture of the surgical neck of the humerus. No dislocation. The soft tissue structures are unremarkable. Normal visualized pulmonary apex. RAD/Shoulder min 2 Views IMPRESSION: Fracture of the surgical neck, and separate fracture of the greater tuberosity. Electronically Signed: Garrick Fong MD at 22:44 EST , Service support ,
--- NOTE | 2018-01-04 22:41 | ED.VISSUMM ---
- ER Visit Summary Date of Service: 01/04/18 Chief Complaint: Left shoulder pain after mechanical fall History of Present Illness: The patient is a 72 M who had a mechanical fall injuring his left shoulder. Is not been able to move his left upper extremity. He denies paresthesia, anesthesia motors. He denies head trauma. He had loss of conscious. Denies neck pain. He denies cardiac respiratory symptoms. Physical Examination: Vital signs noted and are marked for an elevated blood pressure 192/113. He appears uncomfortable. There is pain abrasion of the proximal humerus. Axillary, median, radial and ulnar function intact. There is no pain the patient over the clavicle or AC joint. No pain abrasion lateral medial epicondyle. Is no pain the patient would like naproxen. There is no pain the patient over the radial head with supination pronation. There is no pain the patient with distal radius ulna, carpal bones, metacarpal bones or phalanges. Radial pulses palpable. Heart is regular without murmur, gallop or rub. S1 and S2 are normal. Lungs are clear to auscultation with good movement of air bilaterally. Test Results: Three-view x-ray of the left shoulder was interpreted by me as positive for a nondisplaced fracture of the greater tuberosity. Emergency Department Course and Treatment: X-ray was obtained per nurse protocol. He will placed in a sling and referred to Dr. Garay. Treatment Plan: Oral analgesia, sling and outpatient orthopedic follow-up Disposition: Discharged home Impression: Proximal humeral fracture (he greater tuberosity nondisplaced) left shoulder initial encounter This note was generated with [employer] dictation software. It may contain incorrect words, spelling, and punctuation that were not noted in review of the chart prior to signing ED Disposition - Plan for ED Patient: Chief Complaint: Upper Extremity Injury Instructions: ED Fx Shoulder Prescriptions: Hydrocodone Bitart/Apap 5-325 [[place] 5MG-325MG] 1 tab PO Q6H PRN PRN 6 Days #20 tab PRN Reason: Pain Referrals: Aleksandr Decker MD [Primary Care Provider] - Leopoldo Garay MD [STAFF PHYSICIAN] - 1 Week
--- NOTE | 2018-01-04 22:45 | ED.DCSUM_ITS ---
- ER Visit Summary Date of Service: 01/04/18 Chief Complaint: Left shoulder pain after mechanical fall History of Present Illness: The patient is a 72 M who had a mechanical fall injuring his left shoulder. Is not been able to move his left upper extremity. He denies paresthesia, anesthesia motors. He denies head trauma. He had loss of conscious. Denies neck pain. He denies cardiac respiratory symptoms. Physical Examination: Vital signs noted and are marked for an elevated blood pressure 192/113. He appears uncomfortable. There is pain abrasion of the proximal humerus. Axillary, median, radial and ulnar function intact. There is no pain the patient over the clavicle or AC joint. No pain abrasion lateral medial epicondyle. Is no pain the patient would like naproxen. There is no pain the patient over the radial head with supination pronation. There is no pain the patient with distal radius ulna, carpal bones, metacarpal bones or phalanges. Radial pulses palpable. Heart is regular without murmur, gallop or rub. S1 and S2 are normal. Lungs are clear to auscultation with good movement of air bilaterally. Test Results: Three-view x-ray of the left shoulder was interpreted by me as positive for a nondisplaced fracture of the greater tuberosity. Emergency Department Course and Treatment: X-ray was obtained per nurse protocol. He will placed in a sling and referred to Dr. Garay. Treatment Plan: Oral analgesia, sling and outpatient orthopedic follow-up Disposition: Discharged home Impression: Proximal humeral fracture (he greater tuberosity nondisplaced) left shoulder initial encounter This note was generated with [employer] dictation software. It may contain incorrect words, spelling, and punctuation that were not noted in review of the chart prior to signing ED Disposition - Plan for ED Patient: Chief Complaint: Upper Extremity Injury Instructions: ED Fx Shoulder Prescriptions: Hydrocodone Bitart/Apap 5-325 [[place] 5MG-325MG] 1 tab PO Q6H PRN PRN 6 Days #20 tab PRN Reason: Pain Referrals: Aleksandr Decker MD [Primary Care Provider] - Leopoldo Garay MD [STAFF PHYSICIAN] - 1 Week
[2018-01-04] MEDS: HYDROcodone Bitartrate/Apap 5/325 Tablet PO ×2 (23:08)
[2018-01-04 23:27] VITALS: BP 159/89; PULSE 76; RESP 22; O2SAT 96
== END 2018-01-04 23:37 | disposition home or self-care (01) ==
LOC: ED 22:46
PROVIDERS: Emergency Provider Emergency Medicine
DX: S42.255A Nondisplaced fracture of greater tuberosity of left humerus, initial encounter for closed fracture (principal); W19.XXXA Unspecified fall, initial encounter; Y93.9 Activity, unspecified; Y92.9 Unspecified place or not applicable; Y99.9 Unspecified external cause status; E66.9 Obesity, unspecified; Z79.82 Long term (current) use of aspirin; Z79.899 Other long term (current) drug therapy
CPT/HCPCS: 73030; 99283

== ENCOUNTER → 2018-04-25 12:06 | Outpatient (CLI) | payer MEDICARE, OTHER, SELFPAY ==
--- NOTE | 2018-04-25 12:09 | RAD_ITS ---
STUDY: SWALLOWING STUDY REASON FOR EXAM: Male, 72 years old. Dysphagia. TECHNIQUE: The examination was performed with Speech Pathology in attendance. Under fluoroscopic observation, the patient ingested thin barium, thick barium, barium pudding, and barium coated cracker. FLUOROSCOPY TIME: 2:38 minutes/seconds. 2443 spot images were obtained. RADIOLOGIST INVOLVEMENT: Radiologist was present and providing direct supervision. COMPARISON: None. FINDINGS: The following was observed during swallowing of the various mixtures of barium: Thin Barium: Transient penetration with ingestion of thin liquids. Thick Barium: There was no evidence of aspiration or laryngeal penetration. Barium Pudding: There was no evidence of aspiration or laryngeal penetration. Barium Coated Cracker: There was no evidence of aspiration or laryngeal penetration. RAD/Swallowing Function w/Video IMPRESSION: Transient penetration with ingestion of thin liquids. The swallow study findings were discussed with the patient by the speech pathologist at the conclusion of the examination. Please see speech pathology report for more information and recommendations. Electronically Signed: Clovis Khan, at 14:13 EDT , Service support ,
--- NOTE | 2018-04-25 12:45 | SP.MBSS_ITS ---
PRIMARY / SECONDARY DIAGNOSIS: dysphagia (R13.10) REFERRING PHYSICIAN: Dr. Aleksandr Decker MD. CURRENT DIET: regular textures, thin liquids DENTITION: WFL MENTAL STATUS: sufficient for participation. RESPIRATORY STATUS: O2 via room air REASON FOR REFERRAL: The Patient is a 72 year old male referred for a modified barium swallow (MBS) study to objectively assess the Patients oropharyngeal swallow function under fluoroscopy secondary to the diagnosis of Parkinson?s disease, with reported dysphagia with both solids and liquids gradually occurring over the past year. The Patient was accompanied to the study by multiple family members, all report intermittent coughing during ingestion, along with diurnal sialorrhea and gradual hypogeusia. MEDICAL HISTORY: Parkinson?s disease, chronic obstructive pulmonary disease, asthma, type II diabetes mellitus, hypertension. PREVIOUS MODIFIED BARIUM SWALLOW STUDY: none ADDITIONAL OBJECTIVE ASSESSMENT RESULTS: 03/30/2016 upper GI series results found to be unremarkable. ASSESSMENT PARAMETERS: The Patient participated in a Modified Barium Swallow (MBS) study on 04/25/2018. Dr. Khan was the radiologist present for this evaluation. This study was recorded in the lateral view and images were sent to PACs for storage. Scoring was completed with each trial through the 8-point Penetration-Aspiration Scale (PAS) and Videofluoroscopic Scale Score (VSS), and summarized via the Modified Barium Swallow Impairment Profile (MBSImP) and Bolus Residue Scale (BRS), with severity scoring through the Dysphagia Severity Rating Scale (DSRS) and Swallowing Performance Scale (PSP), and recommended diet textures through the International Dysphagia Diet Standardisation Initiative (IDDSI). RESULTS OF THE EVALUATION: The Patient presents with moderate oropharyngeal dysphagia (DSRS:4; SPS:5) with transient grade III SILENT aspiration of thin liquids, secondary to the diagnosis of Parkinson?s disease. OBJECTIVE ASSESSMENT OF SWALLOW FUNCTION (QUANTITATIVE ? PER TRIAL): PENETRATION / ASPIRATION SCALE (MAN[place]USO): 1 = does not enter airway 2 = enters airway/above vocal folds/ejected 3 = enters airway/above vocal folds/not ejected 4 = enters airway/contacts vocal folds/ejected 5 = enters airway/contacts vocal folds/not ejected 6 = enters airway/below vocal folds/ejected 7 = enters airway/below vocal folds/not ejected despite effort 8 = enters airway/below vocal folds/no effort VIDEOFLOROSCOPIC SCALE SCORE (MANCUSO): Grade I = aspiration of material that has penetrated into the laryngeal vestibule, intact cough reflex Grade II = aspiration < 10 % of the bolus, intact cough reflex Grade III = aspiration of < 10 % of the bolus, reduced cough reflex or aspiration of > 10 % of the bolus, intact cough reflex Grade IV = aspiration of > 10 % of the bolus, reduced cough reflex PENETRATION / ASPIRATION SCALE (SCORE) WITH VIDEOFLOROSCOPIC SCALE SCORE: Thin liquid - 5 mL tsp.: 5 Thin liquids via cup (single sip): 6 ? Grade III Thin liquids via cup (single sip): 3 Thin liquids via cup (sequential swallows): 6 ? Grade III Thin liquids via cup (single sip): 5 Thin liquids via cup (chin tuck): 1 Thin liquids via cup (chin tuck): 3 [place] thickened liquids via cup (single sip): 1 [place] thickened liquids via cup (single sip): 1 [place] thickened liquids via cup (single sip): 1 Pudding via spoon: 1 Regular textured cookie: 1 [place] thickened liquids via cup (single sip): 1 OBJECTIVE ASSESSMENT OF SWALLOW FUNCTION (QUANTITATIVE ? AGGREGATE): MODIFIED BARIUM SWALLOW IMPAIRMENT PROFILE (MBSImP) LABIAL SEAL: 0 (of 4) no labial escape TONGUE CONTROL: 2 (of 3) posterior escape < 50% BOLUS PREPARATION / MASTICATION: 1 (of 3) slow prolonged; complete recollection BOLUS TRANSPORT / LINGUAL MOTION: 2 (of 4) slowed tongue motion ORAL RESIDUE: 2 (of 4) residue collection on oral structures INITIATION OF PHARYNGEAL SWALLOW: 3 (of 4) bolus head in pyriforms SOFT PALATE ELEVATION: 1 (of 4) trace column between soft palate & pharyngeal wall LARYNGEAL ELEVATION: 1 (of 3) partial superior movement / approximation ANTERIOR HYOID EXCURSION: 1 (of 2) partial anterior movement EPIGLOTTIC MOVEMENT: 0 (of 2) complete = inversion LARYNGEAL VESTIBULE CLOSURE: 1 (of 2) incomplete PHARYNGEAL STRIPPING WAVE: 1 (of 2) present / diminished PE SEGMENT OPENIN (of 3) complete distension / duration; no obstruction TONGUE BASE RETRACTION: 2 (of 4) narrow column of contrast PHARYNGEAL RESIDUE: 1 (of 4) trace residue ESOPHAGEAL BOLUS CLEARANCE: could not view ORAL TOTAL SUM: PHARYNGEAL TOTAL SUM: OVERALL IMPRESSION (OI) SCORE: 17 / 55 BOLUS RESIDUE SCALE (BRS): 2 (of 6) residue in valleculae DYSPHAGIA SEVERITY RATING SCALE (DSRS): 4 (moderate) SWALLOWING PERFORMANCE SCALE (SPS): 5 (moderate) OBJECTIVE ASSESSMENT OF SWALLOW FUNCTION (QUALITATIVE): ORAL PREPARATORY PHASE: oral preparatory phase marked by mild (albeit effective) mastication inefficiency with sufficient oral containment; preserved management of breathing / bolus formation without disrupted E ? S ? E pattern ORAL TRANSITIONAL PHASE: oral transitional phase marked by slowed bolus manipulation / transportation without discoordinated lingual movements (tremor / undulations); sufficient oral clearance; sufficient oral containment across textures. PHARYNGEAL PHASE: pharyngeal phase marked by mild pharyngeal phase delay / dyssynchrony resulting in consistent pre-prandial and prandial penetration of thin liquids; reduction in hyolaryngeal excursion resulting in suboptimal laryngeal vestibule closure / pressure, with inconsistent laryngeal vestibule pressure generated to expel penetrated material; sufficient pharyngeal motility; mild velopharyngeal insufficiency without nasoregurgitation; transient aspiration of thin liquids without cough response. ESOPHAGEAL PHASE: no obvious esophageal phase abnormalities observed. CONTRIBUTING / COMPLICATING FACTORS AND NOTABLE FINDINGS: weak cued volitional cough intensity generated to expel penetrated material (dystussia), with an absent cough in response to transient aspiration (atussia). All deficits managed successfully with bolus rate / volume adjustments, diet texture / viscosity adjustments, and with appropriate RECOMMENDATIONS AND CONSIDERATIONS: The Patient was technically noted to SILENTLY aspirate with thin liquids despite lack of post prandial progression from the vocal folds, with clinical assessment at bedside relying on identification of classic overt signs and symptoms of aspiration considered unreliable. Would strongly discourage advancement past nectar thickened liquids without completion of a repeat modified barium swallow study due to the presence of aspiration without a clear response. Would consider implementation of the [place] Free [place] Protocol (FFWP) following Patient and family education ONLY if the Patient has the adequate level of supervision at home. Recommend aggressive oral care with regular dental cleanings to promote optimal oral health and reduce aspiration related pulmonary complication risk. The Patient requires intensive skilled speech-language intervention targeting diet texture management and training / implementation of recommended compensatory strategies; training and implementation of a home oral care protocol to reduce the effects of xerostomia and improve / maintain the integrity of the oral mucosa reducing the risk of aspiration related pulmonary complications; training, implementation, and Patient / caregiver education regarding implementation of the [place] Free [place] Protocol (FFWP); Patient and caregiver education regarding dysphagia associated with Parkinson?s disease; Patient and caregiver training targeting meal preparation / thickened liquid preparation. Would consider training and implementation of oropharyngeal strengthening exercises to facilitate improved oropharyngeal strength and coordination, though significant improvements are less likely due to the attributed etiology of the Patients swallow deficit. 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 The Patient and the Patient?s family inquired about referrals for a neurologist, would consider further referral for neurological workup and intervention given the diagnosis of Parkinson?s disease (apparently underway). Results and recommendations were discussed with the Patient and Patients family immediately following MBS completion, with the Patient verbalizing understanding and agreement with all recommendations and education provided. DIET TEXTURE RECOMMENDATIONS: Will recommend a mechanical soft textured (IDDSI: 5), [place]ctar thickened liquid (IDDSI: 2) diet RECOMMENDED COMPENSATORY STRATEGIES: Supervision, reduced bolus volume / rate of ingestion, seated upright at 90 degrees during PO intake with a forward / anterior lean, remain upright for 30-60 minutes post meal (GERD precaution), medications one at a time with a liquid chaser; would consider training and implementation of the chin tuck posture. IMAGE COUNT: [id number] Sergio Dewey M.A., CCC-MACHINIST MATE MBSImP Certified, LSVT Certified [facility] Speech-Language Pathology Department [email or web address]
== END ==
DX: R13.10 Dysphagia, unspecified (principal); G20 Parkinson's disease; R49.0 Dysphonia
CPT/HCPCS: 74230; 92611

== ENCOUNTER → 2018-07-12 14:22 | Outpatient (CLI) | payer MEDICARE, OTHER, SELFPAY ==
--- NOTE | 2018-07-12 14:26 | CT_ITS ---
HISTORY: Parkinson's, hernia, diabetes and hypertension. EXAM/TECHNIQUE: CT Head or Brain W/O Contrast: Multiplanar reformats provided. COMPARISON: None. FINDINGS: # of images incl. paperwork: 267 No evidence of intracranial hemorrhage, hydrocephalus mass, or acute infarct. No acute osseous abnormality. Scattered chronic appearing hypodensities in the cerebral white matter. Calcific atherosclerosis of the intracranial arteries. Right greater than left maxillary sinus polyps. Mild partial opacification mastoid air cells. CT/Brain/Head without Contrast IMPRESSION: No acute findings. Individualized dose optimization techniques were used for this CT. at 1517 Reported and signed by: Richard Leahy MD Electronically Signed: Richard Leahy, at 15:16 EDT Tel , Service support ,
== END ==
PROVIDERS: Referring Provider Psychiatry & Neurology Neurology; Visit Provider Psychiatry & Neurology Neurology
DX: G20 Parkinson's disease (principal); R26.9 Unspecified abnormalities of gait and mobility; R13.10 Dysphagia, unspecified
CPT/HCPCS: 70450

== ENCOUNTER 2019-04-09 13:10 | Emergency (ER) | payer MEDICARE, OTHER, SELFPAY ==
[2019-04-09 13:11] VITALS: BP 152/86; PULSE 71; RESP 18; TEMP 36.6; O2SAT 95; BMI 46.0
[2019-04-09 14:43] LABS: Bacteria 0 SEEN /hpf (None Seen); Mucous, Urine 0 SEEN /hpf (<or=2+); Red Blood Cells-Urine 0 SEEN /hpf (0-5); Squamous Epithelial Cells - UA 0 SEEN /hpf (0-5)
[2019-04-09 14:44] LABS: Absolute Lymphocyte Count 1.97 X10^3/uL (0.83-4.51); Absolute Neutrophil Count 5.8 X10^3/uL (2.0-7.7); Basophil# 0.03 X10^3/uL; Basophil% 0.3 % (0-1); Eosinophil# 0.26 X10^3/uL; Hemoglobin 13.4 g/dL (13.0-16.5); Lymphocyte # 1.97 X10^3/ul (4.0); Lymphocyte % 22.6 % (19-41); Mean Corp Hgb Conc 31.9 g/dL (32-36); Mean Corpuscular Hgb 30.2 pg (27.0-32.0); Mean Corpuscular Volume 94.8 fL (80-94); Mean Platelet Vol. 11.1 fl (6.2-12.0); Monocyte# 0.63 X10^3/uL; Monocyte% 7.2 % (0-10); NRBC Flagged by Analyzer 0 % (0-5); Neutrophil # 5.78 X10^3/uL (2.7-7.7); Neutrophil % 66.3 % (47-70); Platelet Count 166 K/mm3 (150-450); RBC Distribution Width CV 14.3 % (11.6-14.6); RBC Distribution Width SD 49.2 fl (35.1-43.9); Red Blood Count 4.43 M/mm3 (4.6-6.2); White Blood Count 8.7 K/mm3 (4.4-11.0)
[2019-04-09 14:50] LABS: Color, Urine Yellow (Yellow); Glucose, Dipstick Normal (Normal); Ketone-Dipstick Negative (Negative); Leukocyte Esterase-Dipstick 25 /ul (Negative); Nitrite-Dipstick Negative (Negative); Occult Blood-Urine Negative /ul (Negative); Protein-Dipstick 30 mg/dl (Negative); Urine Bilirubin Dipstick Negative (Negative); Urine Clarity Clear (Clear); Urine Urobilinogen Normal (Normal)
[2019-04-09 14:58] LABS: Anion Gap 7 (5-15); BUN 24 mg/dL (7-18); BUN/Creat Ratio 12.8 RATIO (10-20); Calcium,Total 9.1 mg/dL (8.5-10.1); Chloride 105 mmol/L (98-107); Creatinine, Serum 1.88 mg/dL (0.70-1.30); EST Glomerular Filtration Rate 37 mL/min (>60); Est Glom Filt Rate - Afr Amer 45 mL/min (>60); Estimated Creatinine Clearance 25.11 ml/min; Glucose 111 mg/dL (74-106); Potassium 3.8 mmol/L (3.5-5.1); Sodium Level 141 mmol/L (136-145); White Blood Cells 0-5 SEEN /hpf (0-5)
--- NOTE | 2019-04-09 15:44 | ED.VISSUMM ---
- ER Visit Summary Date of Service: 04/09/19 Chief Complaint: [. Dysuria and urinary incontinence] History of Present Illness: The patient is a 73 M [presents to the emergency department with his daughter with complaint of some dysuria since this morning. Patient states that his back was hurting and he waited too long to get to the bathroom and was incontinent of urine before he could reach the bathroom. Because he is had some increased pain in his low back over the last couple of days family was concerned that he may have a urinary tract infection which he has had in the past. Patient denies any pain rating down his legs. He denies any back injury. He denies any saddle anesthesia. Daughter also states that patient's not taking his medications like he supposed and is not taking his diuretic for the last 3 days and so his legs are more swollen than usual. Patient denies any significant dyspnea. States he has had a mild cough that just seemed to have started today. He denies any chest pain. He does complain of some generalized weakness.] He has history of chronic back pain and has arthritis in his back and hips. Physical Examination: [HEENT-PERRLA, EOMI. Cranial nerves II through XII grossly intact. TMs clear. Mucous membranes moist. No adenopathy. Cardiovascular-regular rate and rhythm without murmur or ectopy Lungs-clear to auscultation, chest wall stable without crepitus or subcu emphysema Abdomen-normoactive bowel sounds, soft, nontender, no rebound or rigidity, no peritoneal signs. Back exam-no significant tenderness over the thoracic or lumbar spine. No tenderness over the costovertebral angles. Negative straight leg raises. Deep tendon reflexes are plus 2 out of 4 bilaterally at the patella and Achilles. Patient has normal 5 extension. Patient has normal sensation to light touch. Extremities-intact ?4, normal range of motion, normal pulses, atraumatic. Patient has +2 edema both lower extremities but symmetric.] Test Results: [Bladder scan performed showed 86 cc of urine. CBC with differential white of 8.7, hemoglobin 13, hematocrit 42, plates 166. Chemistries unremarkable. BUN was 24 and creatinine 1.88. Urinalysis was normal.] Emergency Department Course and Treatment: [] Treatment Plan: [I had a long discussion with patient and his daughter and offered admission for the generalized weakness and to diurese the patient. Patient would prefer to go home and does not want admission at this time. Patient states that he has Lasix at home and he will take it. I suspect the incontinence was related to not being able to get to the bathroom in time because of the pain in his back.] Disposition: [Discharged home in stable condition] Impression: [Acute exacerbation of chronic back pain Urinary incontinence Generalized weakness] This note was generated with [employer] dictation software. It may contain incorrect words, spelling, and punctuation that were not noted in review of the chart prior to signing ED Disposition - Plan for ED Patient: Referrals: Aleksandr Decker MD [Primary Care Provider] -
--- NOTE | 2019-04-09 15:48 | ED.DEP ---
ED Disposition - Plan for ED Patient: Instructions: BACK PAIN (Acute or Chronic), WEAKNESS, Unk Cause, URINARY INCONTINENCE, Male (Adult) Referrals: Aleksandr Decker MD [Primary Care Provider] - 3-5 Days
[2019-04-09 16:11] VITALS: BP 160/99; PULSE 76; RESP 22; O2SAT 97
== END 2019-04-09 16:11 | disposition home or self-care (01) ==
LOC: ED 14:37
PROVIDERS: Emergency Provider Emergency Medicine
DX: M54.5 Low back pain (principal); G89.29 Other chronic pain; R32 Unspecified urinary incontinence; R30.0 Dysuria; R53.1 Weakness; R05 Cough; G20 Parkinson's disease; E11.9 Type 2 diabetes mellitus without complications; I10 Essential (primary) hypertension; M79.89 Other specified soft tissue disorders; M19.90 Unspecified osteoarthritis, unspecified site; Z79.84 Long term (current) use of oral hypoglycemic drugs; Z79.82 Long term (current) use of aspirin; Z79.899 Other long term (current) drug therapy; Z95.810 Presence of automatic (implantable) cardiac defibrillator; Z95.5 Presence of coronary angioplasty implant and graft
CPT/HCPCS: 80048; 81001; 85025; 99283; A4216

== ENCOUNTER 2019-11-14 18:50 | Inpatient (IN) | payer MEDICARE, OTHER, SELFPAY ==
[2019-11-14] VITALS (14 sets, daily range): BP systolic 112–182; BP diastolic 65–99; PULSE 85–115; RESP 12–36; TEMP 36.2–37.4; O2SAT 79–97; BMI 42.1; BMI 44.3; BMI 44.9; BMI 45.0
--- NOTE | 2019-11-14 19:27 | RAD_ITS ---
STUDY: X-RAY CHEST REASON FOR EXAM: Male, 74 years old. DYSPNEA AND WEAKNESS TECHNIQUE: Single frontal view of the chest. COMPARISON: None. FINDINGS: Left cardiac device. Cardiac silhouette enlarged. Pulmonary vascularity significantly increased. Aorta unremarkable. Patchy multifocal left airspace opacities. No pleural effusions. Upper abdomen unremarkable. Osseous structures intact. No pneumothorax. RAD/Chest 1 View (Portable) IMPRESSION: Findings consistent with CHF/fluid overload as clinically indicated. More confluent patchy multifocal left pulmonary opacities may indicate an acute infectious or malignant process as clinically indicated. Electronically Signed: Polo Hernandez, at 20:39 EDT Tel , Service support ,
--- NOTE | 2019-11-14 19:28 | EKG12_ITS ---
Test Reason : WEAKNESS Blood Pressure : / mmHG Vent. Rate : 111 BPM Atrial Rate : 117 BPM P-R Int : 000 ms QRS Dur : 120 ms QT Int : 330 ms P-R-T Axes : 000 156 025 degrees QTc Int : 448 ms Sinus Tachycardia Low voltage QRS Right bundle branch block Left posterior fascicular block Bifascicular block Cannot rule out Anteroseptal infarct , age undetermined Abnormal ECG Confirmed by FILOMENA BRAVO, ZAC ([id number]), writer editor THOMAS FLORES ([id number]) on 11/18/2019 2:43:12 PM Referred By: KARUNA Confirmed By:LUCIEN BUTT MD
--- NOTE | 2019-11-14 19:29 | ED.DCSUM_ITS ---
History of Present Illness Chief Complaint: Weakness Informant: Patient, Family Narrative: 74-year-old male with increasing shortness of breath and difficulty ambulating. His daughter gives the history as he is very dyspneic. He states he has had leg swelling as well. His doctor told him to increase his Lasix. He was diagnosed with a UTI today which was presumed to be the source of the weakness. His daughter stated that last evening he got too short of breath to go up the stairs and laid on his stomach and slid down the stairway. Past Medical History - Allergies and Home Meds Allergies/Adverse Reactions: Allergies No Known Allergies Allergy (Verified 04/09/19 13:14) Past Medical History: - - Diabetes, hypertension, CHF, pacemaker fibrillator Surgical History: - - CABG, ablation for Afib Lives: With Family Smoking Status: Former smoker - Family History Maternal Family History: Reports: Heart Disease, Hypertension Paternal Family History: Reports: - - History was taken from patient's daughter who is unsure of paternal medical history. She thinks that patient's father had colon cancer. Review of Systems General: Denies: Chills, Fever, Sweats Eyes: Denies: Visual changes - bilaterally, Diplopia ENT: Denies: Rhinorrhea, Sore throat Cardiovascular: Reports: Heart racing. Denies: Chest pain Respiratory: Reports: Dyspnea, Dyspnea on exertion Gastrointestinal: Denies: Abdominal pain, Nausea, Vomiting Genitourinary: Reports: Dysuria Musculoskeletal: Denies: Myalgias, Arthralgias Skin: Denies: Rash, Abscess Neurological: Reports: Weakness - Neurolysed. Denies: Numbness Physical Exam Vital Signs/Narrative: Vital Signs Temp Pulse Resp BP Pulse Ox 11/14/19 19:09 98.1 F 11/14/19 19:05 97.1 F L 85 26 H 139/69 H 91 11/14/19 18:51 97.1 F L 92 18 132/72 H 94 Inital Vital Signs reviewed: Yes General: Obese, Acute Distress Head: Normocephalic, Atraumatic Eyes: Perrl, EOMI ENT: TM's clear Cardiovascular: Regular rhythm, Tachycardia Respiratory: Rales, Decreased Air Movement, - - Speaks in short sentences. Accessory muscle use noted. Abdomen: Soft, Nontender Back: Nontender, Normal Inspection Extremities: Nontender, Tenderness, Edema Skin: Normal color, No rash Neurological: Alert, Oriented x3 Psychological: Normal affect Diagnostic/Tx/Re-eval Clinical Impression(s) from Imaging Studies Chest X-Ray 11/14/19 19:27 IMPRESSION: Findings consistent with CHF/fluid overload as clinically indicated. More confluent patchy multifocal left pulmonary opacities may indicate an acute infectious or malignant process as clinically indicated. Electronically Signed: Polo Hernandez at 20:39 EDT Tel , Service support , Chest X-Ray 11/14/19 21:07 IMPRESSION: Endotracheal tube in a satisfactory position. Bilateral patchy and nodular opacities, may be secondary to multifocal pneumonia, cannot exclude a neoplastic process. Electronically Signed: Monica Rosario MD at 21:44 EDT Tel , Service support , Laboratory Data 11/14/19 11/14/19 11/14/19 19:15 19:15 19:15 WBC 21.0 H RBC 4.49 L Hgb 13.9 Hct 43.3 MCV 96.4 H MCH 31.0 MCHC 32.1 RDW Std Deviation 51.6 H RDW Coeff of Sammi 14.7 H Plt Count 192 MPV 11.9 Immature Gran % (Auto) 0.900 Neut % (Auto) 91.8 H Lymph % (Auto) 4.6 L Grainger % (Auto) 2.5 Eos % (Auto) 0.0 Baso % (Auto) 0.2 Absolute Neuts (auto) 19.1 H Absolute Lymphs (auto) 0.95 Nucleated RBC % 0 PT 15.0 H INR 1.2 APTT 35.8 Specimen Type Sample Site pH Bicarbonate Actual Total CO2 Base Excess O2 Saturation O2 % ABG pCO2 ABG pO2 Respiration Rate O2 Delivery Device Vent Mode Tidal Volume Sodium 141 Potassium 3.9 Chloride 106 Carbon Dioxide 25.0 Anion Gap 10 BUN 48 H Creatinine 3.03 H Estim Creat Clear Calc 16.02 Est GFR (MDRD) Af Amer 26 L Est GFR (MDRD) Non-Af 22 L BUN/Creatinine Ratio 15.8 Glucose 142 H Lactic Acid Calcium 9.2 Total Bilirubin 1.50 H AST 417 H ALT 27 Alkaline Phosphatase 97 Troponin I B-Natriuretic Peptide Total Protein 7.4 Albumin 3.4 Globulin 4.0 Albumin/Globulin Ratio 0.8 L Urine Color Urine Clarity Urine pH Ur Specific [place] Urine Protein Urine Glucose (UA) Urine Ketones Urine Occult Blood Urine Nitrite Urine Bilirubin Urine Urobilinogen Ur Leukocyte Esterase Urine RBC Urine WBC Ur Squamous Epith Cells Urine Bacteria Urine Mucus 11/14/19 11/14/19 11/14/19 19:15 19:15 20:00 WBC RBC Hgb Hct MCV MCH MCHC RDW Std Deviation RDW Coeff of Sammi Plt Count MPV Immature Gran % (Auto) Neut % (Auto) Lymph % (Auto) Grainger % (Auto) Eos % (Auto) Baso % (Auto) Absolute Neuts (auto) Absolute Lymphs (auto) Nucleated RBC % PT INR APTT Specimen Type Sample Site pH Bicarbonate Actual Total CO2 Base Excess O2 Saturation O2 % ABG pCO2 ABG pO2 Respiration Rate O2 Delivery Device Vent Mode Tidal Volume Sodium Potassium Chloride Carbon Dioxide Anion Gap BUN Creatinine Estim Creat Clear Calc Est GFR (MDRD) Af Amer Est GFR (MDRD) Non-Af BUN/Creatinine Ratio Glucose Lactic Acid Calcium Total Bilirubin AST ALT Alkaline Phosphatase Troponin I 71.600 H* B-Natriuretic Peptide 1050.9 H Total Protein Albumin Globulin Albumin/Globulin Ratio Urine Color Red Urine Clarity Cloudy Urine pH 5.0 Ur Specific [place] 1.020 Urine Protein 500 H Urine Glucose (UA) Normal Urine Ketones 5 H Urine Occult Blood 250 H Urine Nitrite Negative Urine Bilirubin Negative Urine Urobilinogen Normal Ur Leukocyte Esterase 500 H Urine RBC > 100 SEEN Urine WBC 0 SEEN Ur Squamous Epith Cells 0-5 SEEN Urine Bacteria 0 SEEN Urine Mucus 0 SEEN 11/14/19 11/14/19 11/14/19 20:25 21:53 22:07 WBC RBC Hgb Hct MCV MCH MCHC RDW Std Deviation RDW Coeff of Sammi Plt Count MPV Immature Gran % (Auto) Neut % (Auto) Lymph % (Auto) Grainger % (Auto) Eos % (Auto) Baso % (Auto) Absolute Neuts (auto) Absolute Lymphs (auto) Nucleated RBC % PT INR APTT 39.4 H Specimen Type ART Sample Site R Radial pH 7.24 L Bicarbonate Actual 26.0 Total CO2 28 Base Excess -1 O2 Saturation 88 L O2 % 100 ABG pCO2 61.0 H ABG pO2 66 L Respiration Rate 15.0000 O2 Delivery Device Adult Vent Vent Mode AC Tidal Volume 500 Sodium Potassium Chloride Carbon Dioxide Anion Gap BUN Creatinine Estim Creat Clear Calc Est GFR (MDRD) Af Amer Est GFR (MDRD) Non-Af BUN/Creatinine Ratio Glucose Lactic Acid 2.5 H* Calcium Total Bilirubin AST ALT Alkaline Phosphatase Troponin I B-Natriuretic Peptide Total Protein Albumin Globulin Albumin/Globulin Ratio Urine Color Urine Clarity Urine pH Ur Specific [place] Urine Protein Urine Glucose (UA) Urine Ketones Urine Occult Blood Urine Nitrite Urine Bilirubin Urine Urobilinogen Ur Leukocyte Esterase Urine RBC Urine WBC Ur Squamous Epith Cells Urine Bacteria Urine Mucus - Rhythm Strip Rhythm Strip: Sinus Tach Rate: 111 - EKG Initial EKG Interpretation: Sinus Rhythm, RBBB - Medical Decision Making 74-year-old male presenting with shortness of breath which is been worsening over the last day. It appears to be heart failure and initial exam. He was started on BiPAP but appear to be getting tired. At this point the decision was made to intubate him. Patient was intubated using RSI with rocuronium and etomidate. 8.0 ET tube was placed on first attempt with glide scope. Patient was confirmed. Patient's daughter also had some concern that there was some component of aspiration. Patient's chest x-ray does show infiltrates as well as heart failure and he does have a 20,000 white count. Lactic acid is 2.5. Patient's creatinine is over 3 which is new from March of this year. Patient was covered with vancomycin and Zosyn. Patient was pancultured. EKG does not show any new changes from previous EKG although his troponin is elevated 71.6. Prior to intubation he was stating that he did not have any chest pain, however his daughter did remember him complaining about his shoulder pain but she does not recall which shoulder. Discussed with cardiology who recommended heparin drip. Patient was also given 40 mg of Lasix IV. Discussed the patient with the hospitalist who accepted admission. Impression: 1. Sepsis 2. CHF exacerbation 3. Pneumonia 4. Acute kidney injury 5. Hypoxic respiratory failure 6. NSTEMI - Critical Care Time Critical care time (excluding procedures): 30-74 minutes, Discussing w/Patient &/or Family/Corporate Responsibility Officer, Discussing w/Consultants, Performing Direct Patient Care at Bedside ED Disposition - Plan for ED Patient: Disposition: Acute Care [facility]
[2019-11-14 19:40] LABS: Hematocrit 43.3 % (40-54); Hemoglobin 13.9 g/dL (13.0-16.5); Mean Corp Hgb Conc 32.1 g/dL (32-36); Mean Corpuscular Volume 96.4 fL (80-94); Mean Platelet Vol. 11.9 fl (6.2-12.0); Platelet Count 192 K/mm3 (150-450); RBC Distribution Width CV 14.7 % (11.6-14.6); RBC Distribution Width SD 51.6 fl (35.1-43.9); Red Blood Count 4.49 M/mm3 (4.6-6.2)
[2019-11-14 19:52] LABS: ALB/GLOB Ratio 0.8 RATIO (0.9-2.4); AST(SGOT) 417 U/L (15-37); Alanine Aminotransfer ALT/SGPT 27 U/L (16-61); Albumin, Serum 3.4 g/dL (3.2-5.0); Alkaline Phosphatase 97 U/L (45-117); Anion Gap 10 (5-15); BUN 48 mg/dL (7-18); BUN/Creat Ratio 15.8 RATIO (10-20); Calcium,Total 9.2 mg/dL (8.5-10.1); Chloride 106 mmol/L (98-107); Creatinine, Serum 3.03 mg/dL (0.70-1.30); EST Glomerular Filtration Rate 22 mL/min (>60); Est Glom Filt Rate - Afr Amer 26 mL/min (>60); Estimated Creatinine Clearance 16.02 ml/min; Glucose 142 mg/dL (74-106); Potassium 3.9 mmol/L (3.5-5.1); Protein, Total 7.4 g/dL (6.4-8.2); Sodium Level 141 mmol/L (136-145)
[2019-11-14 20:14] LABS: Bacteria 0 SEEN /hpf (None Seen); Mucous, Urine 0 SEEN /hpf (<or=2+); White Blood Cells 0 SEEN /hpf (0-5)
[2019-11-14 20:15] LABS: Color, Urine Red (Yellow); Glucose, Dipstick Normal (Normal); Ketone-Dipstick 5 mg/dl (Negative); Leukocyte Esterase-Dipstick 500 /ul (Negative); Nitrite-Dipstick Negative (Negative); Occult Blood-Urine 250 /ul (Negative); Protein-Dipstick 500 mg/dl (Negative); Urine Bilirubin Dipstick Negative (Negative); Urine Clarity Cloudy (Clear); Urine Urobilinogen Normal (Normal)
[2019-11-14 20:20] LABS: Absolute Lymphocyte Count 0.95 X10^3/uL (0.83-4.51); Absolute Neutrophil Count 19.1 X10^3/uL (2.0-7.7); Basophil# 0.05 X10^3/uL; Basophil% 0.2 % (0-1); Lymphocyte # 0.95 X10^3/ul (4.0); Lymphocyte % 4.6 % (19-41); Monocyte# 0.52 X10^3/uL; Monocyte% 2.5 % (0-10); NRBC Flagged by Analyzer 0 % (0-5); Neutrophil # 19.05 X10^3/uL (2.7-7.7); Neutrophil % 91.8 % (47-70)
[2019-11-14 20:23] LABS: Red Blood Cells-Urine > 100 SEEN /hpf (0-5); Squamous Epithelial Cells - UA 0-5 SEEN /hpf (0-5)
[2019-11-14 20:24] LABS: International Normalized Ratio 1.2
[2019-11-14 20:25] LABS: Partial Thromboplast Time 35.8 Seconds (24.1-36.2)
[2019-11-14] MEDS: Etomidate 20 MG/10 ML Vial IV (20:52)
[2019-11-14] MEDS: Rocuronium Bromide 50 MG/5 ML Vial 40 MG IV (20:53)
[2019-11-14 21:00] LABS: BNP,B-Type NATRIURETIC PEPTIDE 1050.9 pg/mL (0-100)
[2019-11-14] MEDS: Propofol 10MG/Ml 1,000 MG/100 ML Bottle 6.6 MG CONT INF (21:04)
--- NOTE | 2019-11-14 21:07 | RAD_ITS ---
STUDY: X-RAY CHEST REASON FOR EXAM: Male, 74 years old. Intubation placement. TECHNIQUE: 2 frontal images of the chest were obtained. COMPARISON: 11/14/2019 7:53 PM FINDINGS: There is an endotracheal tube in place terminating 5 cm above the trinity. There is an enteric tube terminating caudal to the inferior margin of the image. There are bilateral patchy and nodular opacities. There is a stable dual-lead cardiac pacer device in place. There is cardiomegaly. Normal mediastinum and patrice. Normal visualized pulmonary arteries. Normal visualized aortic arch and descending thoracic aorta. Normal visualized thoracic spine. Normal visualized ribs, clavicles, and shoulders. There is no demonstrated abnormality of the visualized soft tissue structures of the upper abdomen. RAD/Chest 1 View (Portable) IMPRESSION: Endotracheal tube in a satisfactory position. Bilateral patchy and nodular opacities, may be secondary to multifocal pneumonia, cannot exclude a neoplastic process. Electronically Signed: Monica Rosario MD at 21:44 EDT Tel , Service support ,
[2019-11-14] MEDS: Furosemide 40 MG/4 ML Vial IV (21:12)
[2019-11-14 21:15] LABS: Lactic Acid 2.5 mmol/L (0.4-1.9)
[2019-11-14 22:00] LABS: Base Excess -1 mmol/L (-2 to +2); Blood Gas Specimen Type ART; FI02 100; Mode AC; O2 Delivery Device Adult Vent; PO2 66 mmHG (75-100); SITE R Radial; SO2 88 % (95-99); Total Carbon Dioxide 28 mmol/L; Vt 500; pH 7.24 (7.35-7.45)
[2019-11-14] MEDS: Aspirin 300 MG Suppository RECTAL (22:27)
[2019-11-14] MEDS: Heparin Injection (Vial) 5,000 UNIT/ML VIAL 8000 UNIT IV (22:32)
[2019-11-14 22:34] LABS: Partial Thromboplast Time 39.4 Seconds (24.1-36.2)
--- NOTE | 2019-11-14 23:01 | ECHOCS_ITS ---
Reason For Study: SOB Procedure This was a 2D Doppler, Color Flow transthoracic echocardiogram. Technically difficult study, patient scanned supine and on Vent. Contrast injection performed. Exam performed portable in ICU/CCU. Left Ventricle Normal LV size. The estimated ejection fraction is 45 %. Stage 1 diastolic dysfunction. [place] : Akinetic. Right Ventricle Normal RV size. There is a pacemaker lead in the right ventricle. Normal systolic function. Atria Normal left atrium. Normal right atrium. ICD or pacer leads identified within the right atrium. No doppler evidence for ASD. Mitral Valve There is no mitral valve stenosis. Trivial mitral valve insufficiency. Tricuspid Valve There is no tricuspid stenosis. Trivial tricuspid valve insufficiency. Pulmonary artery systolic pressure is 50-55 mmHg. Aortic Valve Trisinus/trileaflet aortic valve. There is no aortic stenosis. Trivial aortic valve insufficiency. Pulmonic Valve There is no pulmonic valvular stenosis. No pulmonic valve insufficiency. Great Vessels Normal aortic root. Pericardium/Pleural No pericardial effusion. Medication Diluted definity 5ml given slow IV push to enhance endocardial definition. MMode/2D Measurements & Calculations LVIDd: 4.8 cm IVSd: 1.9 cm LAV(MOD-bp): 54.6 ml LVIDs: 3.1 cm LVPWd: 1.4 cm FS: 35.7 % LAV(MOD-bp) Indexed: 26.6 ml/m2 LAV(MOD-sp2): 57.0 ml LAV(MOD-sp4): 43.5 ml SV(MOD-sp4): 75.6 ml SV(sp4-el): 84.9 ml LVAd ap4: 39.0 cm2 EDV(MOD-sp4): 134.0 ml EDV(sp4-el): 146.8 ml LVAs ap4: 25.5 cm2 ESV(MOD-sp4): 58.4 ml ESV(sp4-el): 61.9 ml EF(MOD-sp4): 56.4 % EF(sp4-el): 57.9 % LA A4 area: 15.5 cm2 RA A4 area: 14.6 cm2 Time Measurements MV dec time: 0.20 sec Doppler Measurements & Calculations MV E max carly: 77.8 cm/sec MV V2 max: 95.3 cm/sec MV P1/2t max carly: 96.3 cm/sec MV A max carly: 55.1 cm/sec MV max P.6 mmHg MV P1/2t: 53.5 msec MV E/A: 1.4 MV V2 mean: 61.6 cm/sec MV dec slope: 527.5 cm/sec2 MV mean P.7 mmHg MV V2 VTI: 20.5 cm MVA(P1/2t): 4.1 cm2 Ao V2 max: 105.7 cm/sec AI max carly: 234.7 cm/sec LV V1 max: 105.7 cm/sec Ao max P.5 mmHg AI max P.0 mmHg LV V1 max P.5 mmHg AI dec slope: 174.9 cm/sec2 AI P1/2t: 392.9 msec PA V2 max: 79.0 cm/sec TR max carly: 337.1 cm/sec TR max P.4 mmHg Interpretation Summary The estimated ejection fraction is 45 %. Stage 1 diastolic dysfunction. [place] : Akinetic. Trivial mitral valve insufficiency. Trivial aortic valve insufficiency. Pulmonary artery systolic pressure is 50-55 mmHg. The study was technically difficult. Contrast injection was performed. Ordering Physician: Augie Mcqueen Referring Physician: Aleksandr Decker Performed By: Graham Jerry RCS
--- NOTE | 2019-11-14 23:37 | PCM.HP.STD ---
Problem List (1) CHIKA (acute kidney injury) Status: Acute (2) Heart failure Status: Acute (3) CKD (chronic kidney disease) Status: Chronic (4) Parkinson disease Status: Chronic (5) NSTEMI (non-ST elevated myocardial infarction) Status: Acute (6) Diabetes Status: Chronic History of Present Illness Date of Admission: 11/14/19 Chief Complaint: bilateral leg swelling The patient is a 74 year old M with a significant history of COPD; CABG; pacemaker with defibrillation; diabetes mellitus; CKD stage III; and Parkinson disease who presents to the emergency department with weakness. Per family patient was weak in his legs, and his back and in his shoulders. His symptoms started a day before presentation. Also family noted that patient bilateral legs were swollen. Patient went to his PCPs office on the same day of presentation and was diagnosed with UTI. Per daughter, patient complained of burning with urination. Also daughter report that PCP told patient to increase his furosemide p.o.daily to twice daily. History was taken from patient's daughter because patient was intubated and sedated at the time of examination. Her daughter report that patient has shortness of breath with exertion but he think it is unchanged. At emergency department patient's BNP was elevated. Chest x-ray showed bilateral infiltrates. Also daughter reports that patient aspirated on water on the same day of presentation. Past Medical History Past Medical History (Chronic Problems): Chronic Problems CKD (chronic kidney disease) (Chronic) Parkinson disease (Chronic) Diabetes (Chronic) Allergies No Known Allergies Allergy (Verified 04/09/19 13:14) Home Medications: Ambulatory Orders Medication Instructions Recorded Allopurinol [Zyloprim] 100 mg PO BIDCM 12/04/17 Amlodipine Besylate [Norvasc] 10 mg PO DAILY 12/04/17 Aspirin E.C. [Ecotrin] 81 mg PO DAILY@0800 12/04/17 Carbidopa/Levodopa [Carbidopa-Levo 2 each PO TID 12/04/17 25-100 mg Odt] Docusate Sodium [Colace] 200 mg PO DAILY 12/04/17 Esomeprazole Magnesium 40 mg PO DAILY 12/04/17 Fluticasone 110 Mcg [Flovent 110 1 puff INHALATION BID 12/04/17 Mcg] Metformin HCl 500 mg PO DAILY 12/04/17 Metoprolol Succinate [Toprol Xl] 50 mg PO DAILY 12/04/17 Multivit-Min/Folic/Vit K/Lycop 1 each PO DAILY 12/04/17 [One-A-Day Men's 50 Plus Tablet] [place]-3 Fatty Acids/Fish Oil [Fish 1 each PO DAILY 12/04/17 Oil 1,000 mg Capsule] Brimonidine Tartrate 0.2% 1 drop OPHTHALMIC BID 12/05/17 [Brimonidine 0.2% 5Ml Bottle] Furosemide 40 mg PO DAILY 04/09/19 Garlic 500 mg PO DAILY 04/09/19 Surgical History: - - CABG, ablation for Afib Psychiatric History: No pertinent psych hx Smoking Status: Former smoker - *Family History Maternal History Items: Heart Disease, Hypertension Paternal History Items: - - History was taken from patient's daughter who is unsure of paternal medical history. She thinks that patient's father had colon cancer. Review of Systems Constitutional: Reports: Weakness. Denies: Chills, Fever, Weight Change HEENT: Denies: Head Aches, Sinus Congestion, Sinus Drainage Cardiovascular: Denies: Chest Pain, Palpitations Respiratory: Reports: Shortness of breath upon exertion. Denies: Cough, Shortness of breath at rest, Sputum production Gastrointestinal: Denies: Abdominal Pain, Nausea, Vomiting Genitourinary: Denies: Dysuria Musculoskeletal: Denies: Joint Pain, Joint Tenderness Skin: Denies: Rash, Wounds Neurological: Denies: Numbness, Tingling, Focal weakness Psychiatric: Denies: Anxiety, Depression, Homicidal Ideations, Suicidal Ideations Hematologic/ Lymphatic: Denies: Easy Bruising, Easy Bleeding VTE Information - Inpt Only VTE Present on Admission: No VTE Mechan Device Prophylaxis: None VTE Pharm Prophylaxis ordered?: No Reason prophylaxis not ordered:: Treatment Not Indicated - Started on a heparin drip for non-STEMI. Patient Problems: Active and Suspected Problems CHIKA (acute kidney injury) (Acute) Heart failure (Acute) NSTEMI (non-ST elevated myocardial infarction) (Acute) - Physical Exam Vitals/I&O's: Vital Signs Temp Pulse Resp BP Pulse Ox 98.2 F 96 22 H 112/71 95 11/14/19 22:36 11/14/19 22:36 11/14/19 22:36 11/14/19 22:36 11/14/19 22:36 Oxygen Flow Rate (L/min) 15 Oxygen Delivery Method Mechanical Ventilator Weight: 109.9 kg Body Mass Index (BMI) 44.3 Intake and Output for Last 24 Hours 11/12/19 11/13/19 11/14/19 23:59 23:59 23:59 Intake Total 70.505 / 70.505 Balance 70.505 / 70.505 General: - - Intubated and sedated on mechanical ventilation. HEENT: Atraumatic, Normocephalic Neck: Trachea Midline, Thyroid Normal Size and Texture, - Lungs: Rhonchi, Tachypneic Cardiovascular: Tachycardic, - - Diminished heart sounds Abdomen: Bowel Sounds Present, Soft Extremities: Edema Skin: No rashes Musculoskeletal: No Muscle Wasting Neurological: - - Intubated and sedated on mechanical ventilation. Psych/Mental Status: - - Intubated and sedated on mechanical ventilation. Laboratory Results 11/14/19 19:15: WBC 21.0 H, RBC 4.49 L, Hgb 13.9, Hct 43.3, MCV 96.4 H, MCH 31.0, MCHC 32.1, RDW Std Deviation 51.6 H, RDW Coeff of Sammi 14.7 H, Plt Count 192, MPV 11.9, Immature Gran % (Auto) 0.900, Neut % (Auto) 91.8 H, Lymph % (Auto) 4.6 L, [place] % (Auto) 2.5, Eos % (Auto) 0.0, Baso % (Auto) 0.2, Absolute Neuts (auto) 19.1 H, Absolute Lymphs (auto) 0.95, Nucleated RBC % 0 11/14/19 19:15: Sodium 141, Potassium 3.9, Chloride 106, Carbon Dioxide 25.0, Anion Gap 10, BUN 48 H, Creatinine 3.03 H, Estim Creat Clear Calc 16.02, Est GFR (MDRD) Af Amer 26 L, Est GFR (MDRD) Non-Af 22 L, BUN/Creatinine Ratio 15.8, Glucose 142 H, Calcium 9.2, Total Bilirubin 1.50 H, AST 417 H, ALT 27, Alkaline Phosphatase 97, Total Protein 7.4, Albumin 3.4, Globulin 4.0, Albumin/Globulin Ratio 0.8 L 11/14/19 19:15: PT 15.0 H, INR 1.2, APTT 35.8 11/14/19 19:15: Troponin I 71.600 H* 11/14/19 19:15: B-Natriuretic Peptide 1050.9 H 11/14/19 20:00: Urine Color Red, Urine Clarity Cloudy, Urine pH 5.0, Ur Specific [place] 1.020, Urine Protein 500 H, Urine Glucose (UA) Normal, Urine Ketones 5 H, Urine Occult Blood 250 H, Urine Nitrite Negative, Urine Bilirubin Negative, Urine Urobilinogen Normal, Ur Leukocyte Esterase 500 H, Urine RBC > 100 SEEN, Urine WBC 0 SEEN, Ur Squamous Epith Cells 0-5 SEEN, Urine Bacteria 0 SEEN, Urine Mucus 0 SEEN 11/14/19 20:25: Lactic Acid 2.5 H* 11/14/19 21:15: COVID-19 (MALLY) Negative 11/14/19 21:53: Specimen Type ART, Sample Site R Radial, pH 7.24 L, Bicarbonate Actual 26.0, Total CO2 28, Base Excess -1, O2 Saturation 88 L, O2 % 100, ABG pCO2 61.0 H, ABG pO2 66 L, Respiration Rate 15.0000, O2 Delivery Device Adult Vent, Vent Mode AC, Tidal Volume 500 11/14/19 22:07: APTT 39.4 H Current Medications Acetaminophen (Tylenol) 650 mg PO Q6H PRN PRN PRN Reason: Pain Score 1-10/Temp > 100.7 F Albuterol Sulfate (Ventolin Aerosols) 2.5 mg INHALATION Q2H PRN PRN PRN Reason: sob/wheezing [facility]) [facility] Amlodipine Besylate (Norvasc) 10 mg PO DAILY [facility] Aspirin (Ecotrin) 81 mg PO DAILY@0800 [facility] Brimonidine Tartrate (Brimonidine 0.2% 5ml Bottle) 1 drop EACH EYE BID [facility] Carbidopa/Levodopa (Sinemet) 2 tablet PO TIDAC [facility] Chlorhexidine Gluconate () 15 ml PO BID [facility] Dextrose (D50w Syringe) 0 gm IV X1 PRN; Protocol PRN Reason: Hypoglycemia Famotidine (Pepcid) 20 mg GT BID [facility] Furosemide (Lasix) 40 mg IV BID@1000,1800 [facility] Glucagon () 1 mg IM .X1 PRN PRN Reason: Hypoglycemia Heparin Sodium (Porcine) (Heparin Na) 0 unit IV UD PRN; Protocol PRN Reason: dose adjustment Propofol (Diprivan) 1,000 mg in 100 mls @ 6.594 mls/hr CONT INF .Q12H [facility]; Protocol Last Titration: 11/14/19 21:30 Dose: 20 mcg/kg/min, 13.2 mls/hr Documented by: Heparin Sodium/Sodium Chloride () 25,000 unit in 250 mls @ 15 mls/hr IV .[id number] [facility]; Protocol Last Admin: 11/14/19 22:43 Dose: 1,500 units/hr, 15 mls/hr Documented by: Fentanyl Citrate 1,000 mcg/ (Sodium Chloride) 100 mls @ 2.5 mls/hr CONT INF .Q40H [facility]; Protocol Piperacillin Sod/Tazobactam (Sod 3.375 gm/ Sodium Chloride) 50 mls @ 12.5 mls/hr IV Q12 [facility] Vancomycin IV Pharmacy to Dose (1 ea/ Sodium Chloride) 500 mls @ 250 mls/hr IV PRN PRN; Protocol PRN Reason: Rx to Dose Insulin Human Lispro (Humalog Kwikpen (Bkc)) 0 unit SC Q6 [facility]; Protocol Metoprolol Succinate (Toprol Xl (Beta [place])) 50 mg PO DAILY [facility] Ondansetron HCl (Zofran) 4 mg IV Q8H PRN PRN PRN Reason: NAUSEA/VOMITING Assessment/Plan All Active Problems Weakness (Acute) Dysuria (Acute) CHIKA (acute kidney injury) (Acute) Heart failure (Acute) NSTEMI (non-ST elevated myocardial infarction) (Acute) The patient is a 74 year old M with a significant history of COPD; CABG; pacemaker; defibrillation; diabetes mellitus; CKD stage III; and Parkinson disease who presents emergency department with weakness; shortness of breath with exertion; bilateral lower extremity edema; and a recent diagnosis of UTI who was found to have elevated BNP; diffuse infiltrate on chest x-ray; leukocytosis; severely elevated creatinine; lactic acidosis; tachypnea; elevated PCO2; and low PO2. Acute hypoxemic and hypercapnic respiratory failure ABG reviewed showed respiratory acidosis with high PCO2 and low PO2. Initially patient was placed on BiPAP at emergency department but with increasing respiratory distress he was intubated and placed on mechanical ventilator. Will admit patient to the intensive care unit on mechanical ventilation. Propofol was initiated at emergency department and continued. We will add fentanyl drip. Consult food writer. Trend CBC and CMP Check magnesium and phosphorus. Trend ABG Severe sepsis Sirs criteria: Heart rate of more than 90; respiratory rate of more than 20; white count of 21 Severe sepsis criteria: Creatinine of 3.03(Of note patient has CKD); lactic acid of more than 2 ( Of note patient is on metformin); elevated troponin signifying end organ damage to heart. Culture and blood culture was obtained at emergency department: Follow. Trend lactic acid. Started on vancomycin and Zosyn at emergency department; continued. Non-ST elevation NV Troponin was 71.6. Emergent department doctor discussed the case with pharmacy informatics manager and patient was started on heparin drip. Heparin drip continued. Received aspirin 324 mg at emergency department. Daily aspirin continued. Trend troponin. Patient's medical history include CABG. Unclear why home meds does not include statins. In any case in the setting of elevation of AST will not start statin at this time. Inpatient cardiology consult. Heart failure Unspecified whether diastolic or systolic. Patient with elevated BNP. Although daughter reports that patient has heart problem and has pacemaker with defibrillation and has had ablation; daughter is unsure whether patient has heart failure. However chest x-ray independently reviewed showed bilateral infiltrates. Patient is on home Lasix. Emergent department doctor discussed with pharmacy informatics manager who was okay with Lasix. We will continue Lasix 40 mg IV twice daily. Trend BMP and supplement potassium as necessary. Of note patient has CHIKA and supplemental potassium will not be ordered at this time. Elevate bilateral lower legs. Daily weight Fluid restriction of 1500 MS per day. Patient is n.p.o. at this time. NG tube placed at emergency department. Echocardiogram ordered CHIKA on CKD stage III His creatinine on presentation was 3.03. His creatinine on 04/09/2019 was 1.88. And his creatinine in 2018 was 1.44-2.02. CKD likely secondary to diabetic nephropathy. CHIKA likely secondary to severe sepsis and cardiorenal syndrome. Lasix as above. Trend BMP Avoid nephrotoxins. Acute UTI Reportedly was diagnosed with UTI outpatient. Urinalysis was abnormal at the emergency department. However no bacteria was seen. Urine culture was ordered at emergency department; follow On vancomycin and Zosyn as above. Pneumonia Gram negative; gram-positive or aspiration pneumonia. Patient bilateral infiltrates. Covid screen was negative. Other diagnoses can explain patient's symptoms so will discontinue enhanced droplet precautions started at the emergency department. Chest x-ray: Independent review of actual chest x-ray image showed bilateral infiltrates. Respiratory Gram stain and culture ordered. Vancomycin and Zosyn as above. Albuterol as needed Legionella antigen screen and Strep antigen ordered Diabetes mellitus Patient with hyperglycemia on presentation Accu-Chek with correction scale insulin ordered. Hold metformin in the hospital setting. Generalized weakness Likely secondary to Parkinson's disease; heart failure; pneumonia and UTI. Heart failure; pneumonia and UTI treatment as above. Consider Physical therapy and Occupational Therapy consult when patient is able. Elevated liver enzymes Patient with isolated AST elevation. Likely secondary to sepsis. Trend. Check CPK to rule out muscle injury. Gout Allopurinol dose adjusted secondary to CHIKA. GI prophylaxis: On home PPI. Change to IV while n.p.o. DVT prophylaxis: Not indicated since patient has been started on heparin drip for non-STEMI. Inpatient E&M: 19511 Init Hosp L3
--- NOTE | 2019-11-14 23:43 | PCM.RX.CS ---
Consult Pharmacy has been consulted to manage selected antiobiotic: Vancomycin Type of Consult: New start Suspected Infection: Other Prior Doses of Antibiotics Received/Current Regimen: Medications Discontinued Medications Vancomycin HCl 1,750 mg/ (Sodium Chloride) 535 mls @ 250 mls/hr IV X1 ONE Stop: 11/14/19 23:08 Last Admin: 11/14/19 21:46 Dose: 250 mls/hr Labs: Sodium 141 mmol/L (136-145) 11/14/19 19:15 Potassium 3.9 mmol/L (3.5-5.1) 11/14/19 19:15 Chloride 106 mmol/L (98-107) 11/14/19 19:15 Carbon Dioxide 25.0 mmol/L (21.0-32.0) 11/14/19 19:15 Anion Gap 10 (5-15) 11/14/19 19:15 BUN 48 mg/dL (7-18) H 11/14/19 19:15 Creatinine 3.03 mg/dL (0.70-1.30) H 11/14/19 19:15 Est GFR (MDRD) Af Amer 26 mL/min (>60) L 11/14/19 19:15 Est GFR (MDRD) Non-Af 22 mL/min (>60) L 11/14/19 19:15 BUN/Creatinine Ratio 15.8 RATIO (-20) 11/14/19 19:15 Glucose 142 mg/dL (74-106) H 11/14/19 19:15 Microbiology: Microbiology 11/14/19 20:00 Urine Catheter - [place] Legionella Antigen - Final 11/14/19 20:00 Urine Catheter - [place] Streptococcus pneumoniae Antigen (M - Final Weight used for dosin.9 kg Estimated Creatinine Clearance: 16 Goal Trough: 15-20 mcg/mL Pharmacy Plan for Drug Dosing: Initial 1750mg vancomycin IV dose was given in ED 11/14/19. Since CrCl is currently at 16, will draw a random vanco level 11/16/19 to determine further dosing. Pharmacy Service will continue to monitor and adjust dosing as required. Follow-Up Labs: Trough Vancomycin - random Labs to be done on [date and time ordered]: 11/16/19 @0600
[2019-11-15] VITALS (40 sets, daily range): BP systolic 84–125; BP diastolic 50–75; PULSE 75–113; RESP 14–25; TEMP 36.2–37.7; O2SAT 93–98; BMI 44.6
--- NOTE | 2019-11-15 00:16 | NURSING ---
11/14/2019 2350: Patient transferred into ICU 01 in stable condition from ED. Belongings include one pair of socks
[2019-11-15 00:20] LABS: Bedside Glucose 140 mg/dL (70-110)
[2019-11-15 00:36] LABS: Reflex Lactate? Y
[2019-11-15 01:11] LABS: Lactic Acid 1.6 mmol/L (0.4-1.9)
[2019-11-15 01:45] LABS: M R Staph aureus DNA By PCR Negative (Negative); Probe Check PASS; Specimen Processing Control PASS
[2019-11-15 03:34] LABS: ALB/GLOB Ratio 0.8 RATIO (0.9-2.4); AST(SGOT) 297 U/L (15-37); Alanine Aminotransfer ALT/SGPT 29 U/L (16-61); Albumin, Serum 2.7 g/dL (3.2-5.0); Alkaline Phosphatase 77 U/L (45-117); Anion Gap 6 (5-15); BUN 49 mg/dL (7-18); CPK Total, Creatine Kinase 4577 U/L (39-308); Calcium,Total 8.2 mg/dL (8.5-10.1); Chloride 107 mmol/L (98-107); Creatinine, Serum 2.89 mg/dL (0.70-1.30); EST Glomerular Filtration Rate 23 mL/min (>60); Est Glom Filt Rate - Afr Amer 27 mL/min (>60); Estimated Creatinine Clearance 16.09 ml/min; Globulin 3.4 g/dL (2.2-4.2); Glucose 132 mg/dL (74-106); Magnesium 2.4 mg/dL (1.6-2.6); Potassium 3.9 mmol/L (3.5-5.1); Protein, Total 6.1 g/dL (6.4-8.2); Sodium Level 140 mmol/L (136-145)
[2019-11-15] MEDS: 0.9% Saline Lock 10 ML Syringe IV (04:48)
[2019-11-15] MEDS: Propofol 10MG/Ml 1,000 MG/100 ML Bottle 9.9 MG CONT INF ×3 (04:48→21:49)
[2019-11-15 05:30] LABS: Allen Test Positive; Base Excess -1 mmol/L (-2 to +2); Bicarbonate 23.6 mmol/L (22-26); Blood Gas Specimen Type ART; FI02 60; Mode AC; O2 Delivery Device Adult Vent; PO2 76 mmHG (75-100); SITE R Radial; SO2 95 % (95-99); Total Carbon Dioxide 25 mmol/L; Vt 500; pCO2 37.9 mmHg (35-45)
[2019-11-15 05:36] LABS: Absolute Lymphocyte Count 1.02 X10^3/uL (0.83-4.51); Basophil# 0.04 X10^3/uL; Basophil% 0.2 % (0-1); Eosinophil# 0.13 X10^3/uL; Eosinophils% 0.7 % (0-5); Hematocrit 38.9 % (40-54); Hemoglobin 12.4 g/dL (13.0-16.5); Lymphocyte # 1.02 X10^3/ul (4.0); Lymphocyte % 5.3 % (19-41); Mean Corp Hgb Conc 31.9 g/dL (32-36); Mean Corpuscular Hgb 30.5 pg (27.0-32.0); Mean Corpuscular Volume 95.8 fL (80-94); Mean Platelet Vol. 11.5 fl (6.2-12.0); Monocyte# 0.82 X10^3/uL; Monocyte% 4.3 % (0-10); NRBC Flagged by Analyzer 0 % (0-5); Neutrophil # 17.03 X10^3/uL (2.7-7.7); Neutrophil % 88.5 % (47-70); POSITIVE MORPHOLOGY YES; Platelet Count 161 K/mm3 (150-450); RBC Distribution Width CV 14.8 % (11.6-14.6); RBC Distribution Width SD 51.3 fl (35.1-43.9); Red Blood Count 4.06 M/mm3 (4.6-6.2); White Blood Count 19.2 K/mm3 (4.4-11.0)
[2019-11-15 05:41] LABS: Differential Indicated SCAN CRITERIA MET
[2019-11-15 05:46] LABS: Bedside Glucose 135 mg/dL (70-110)
[2019-11-15 06:15] LABS: Differential Comment SCANNED
--- NOTE | 2019-11-15 06:57 | CON.PCM_ITS ---
Problem List (1) Weakness Status: Acute (2) CHIKA (acute kidney injury) Status: Acute (3) Heart failure Status: Acute Qualifiers: Heart failure type: unspecified Heart failure chronicity: acute Qualified Code(s): I50.9 - Heart failure, unspecified (4) CKD (chronic kidney disease) Status: Chronic (5) Parkinson disease Status: Chronic (6) NSTEMI (non-ST elevated myocardial infarction) Status: Acute (7) Diabetes Status: Chronic Reason for Consult Date of Consultation: 11/15/19 Reason for Consultation: Respiratory failure History of Present Illness: The patient is a 74 year old M, with past medical history listed below, who presented to [facility] on 11/14/2019 secondary to increasing shortness of breath and difficulty ambulating. Patient's daughter reportedly gave a history of the patient being very dyspneic with increased leg swelling. Patient had been instructed to increase his Lasix and was diagnosed with a UTI by his PCP on the day of presentation. Reportedly, this was thought to be the source of weakness, but patient got too short of breath to walk up the steps and reportedly slid down the stairway on his stomach to obtain help. In the ER, patient was noted to be in significant worsening shortness of breath. Patient was initially attempted on BiPAP therapy, but continued to decline. Patient was then intubated using rapid sequence. Chest x-rays were consistent with congestive heart failure, but patient had a leukocytosis of 20,000 and an elevated lactate of 2.5. Patient also had an elevation in creatinine. Patient was given vancomycin, Zosyn and pancultured. EKG did not show any changes, but troponin was noted to be 71.6. Patient reportedly had not been complaining of chest pain, but daughter had reported he had complained of shoulder pain. Case was discussed with cardiology and patient was placed on a heparin drip and given 40 mg of IV Lasix. Since being in the intensive care unit, patient has remained hemodynamically stable. Patient did have a 26 beat run of V. tach, but did not require any cardioversion. Patient's oxygenation status is slowly improved, but is still requiring 60% FiO2 to maintain saturations. Patient is unable to provide any review of systems at this time. No tremor was noted. Patient remains intubated and sedated. Patient did not receive a spontaneous breathing trial secondary to elevated troponins and recent intubation. Past Medical History Past Medical History (Chronic Problems): Chronic Problems CKD (chronic kidney disease) (Chronic) Parkinson disease (Chronic) Diabetes (Chronic) Allergies No Known Allergies Allergy (Verified 04/09/19 13:14) Home Medications: Ambulatory Orders Medication Instructions Recorded Allopurinol [Zyloprim] 100 mg PO BIDCM 12/04/17 Amlodipine Besylate [Norvasc] 10 mg PO DAILY 12/04/17 Aspirin E.C. [Ecotrin] 81 mg PO DAILY@0800 12/04/17 Carbidopa/Levodopa [Carbidopa-Levo 2 each PO TID 12/04/17 25-100 mg Odt] Docusate Sodium [Colace] 200 mg PO DAILY 12/04/17 Esomeprazole Magnesium 40 mg PO DAILY 12/04/17 Fluticasone 110 Mcg [Flovent 110 1 puff INHALATION BID 12/04/17 Mcg] Metformin HCl 500 mg PO DAILY 12/04/17 Metoprolol Succinate [Toprol Xl] 50 mg PO DAILY 12/04/17 Multivit-Min/Folic/Vit K/Lycop 1 each PO DAILY 12/04/17 [One-A-Day Men's 50 Plus Tablet] [place]-3 Fatty Acids/Fish Oil [Fish 1 each PO DAILY 12/04/17 Oil 1,000 mg Capsule] Brimonidine Tartrate 0.2% 1 drop OPHTHALMIC BID 12/05/17 [Brimonidine 0.2% 5Ml Bottle] Furosemide 40 mg PO DAILY 04/09/19 Garlic 500 mg PO DAILY 04/09/19 Surgical History: - - CABG, ablation for Afib Psychiatric History: No pertinent psych hx Lives: With Family Smoking Status: Former smoker - *Family History Maternal History Items: Heart Disease, Hypertension Paternal History Items: - - History was taken from patient's daughter who is unsure of paternal medical history. She thinks that patient's father had colon cancer. Review of Systems Unable to obtain accurate/complete ROS d/t: See HPI Patient Problems: Active and Suspected Problems CHIKA (acute kidney injury) (Acute) Heart failure (Acute) NSTEMI (non-ST elevated myocardial infarction) (Acute) Objective: All imaging was personally reviewed. Chest x-ray shows bilateral infiltrates with supportive devices in appropriate position. Patient does not have a previous echocardiogram or PFT for review. Patient does have a swallow study from 2019 showing moderate oral pharyngeal dysphasia with transient grade 3 silent aspiration - Physical Exam Vitals/I&O's: Vital Signs Temp Pulse Resp BP Pulse Ox 36.4 C L 91 20 H 113/60 96 11/15/19 04:00 11/15/19 06:00 11/15/19 06:00 11/15/19 06:00 11/15/19 06:00 Oxygen Flow Rate (L/min) 15 Oxygen Delivery Method Mechanical Ventilator Weight: 110.8 kg Body Mass Index (BMI) 44.9 Intake and Output for Last 24 Hours 11/13/19 11/14/19 11/15/19 23:59 23:59 23:59 Intake Total 101.305 / 103.505 847.05 / 847.05 Output Total 800 / 800 Balance 101.305 / -196.495 47.05 / 47.05 General: - - Intubated and sedated. Morbidly obese. Good vent synchrony noted. HEENT: Atraumatic, PERRLA, EOMI, Normocephalic, - - No scleral icterus or injection noted. Oral: No Gingival or Mucosal Lesions/ Ulcerations, Dry Mucosa, - - Crowded posterior pharynx Neck: Supple, No Nodes, Trachea Midline, - - Difficult to assess JVD secondary to body habitus Lungs: Clear to auscultation, Normal air movement, No rhonchi, No wheeze, No rales, - - Symmetric expansion. No dullness to percussion. Cardiovascular: Regular rate, Regular Rhythm, Normal S1, Normal S2, No murmurs, No rub noted, No Gallop Abdomen: Bowel Sounds Present, Soft, Non Tender, Non-Distended, Obese Extremities: No clubbing, No cyanosis, Edema - 3-4+ bilateral lower extremities Skin: No rashes, No breakdown Musculoskeletal: No Tenderness to Palpation of Joints or Extremities Lymphatic: No Cervical, Supraclavicular, or Inguinal Adenopathy Neurological: Cranial nerves II-XII grossly intact, Neuro grossly intact, Motor Exam 5/5 strength throughout Psych/Mental Status: Flat Affect Microbiology Past 72 Hours 11/14/19 20:00 Urine Catheter - Barker Legionella Antigen - Final 11/14/19 20:00 Urine Catheter - Barker Streptococcus pneumoniae Antigen (M - Final Laboratory Results 11/14/19 19:15: WBC 21.0 H, RBC 4.49 L, Hgb 13.9, Hct 43.3, MCV 96.4 H, MCH 31.0, MCHC 32.1, RDW Std Deviation 51.6 H, RDW Coeff of Sammi 14.7 H, Plt Count 192, MPV 11.9, Immature Gran % (Auto) 0.900, Neut % (Auto) 91.8 H, Lymph % (Auto) 4.6 L, [place] % (Auto) 2.5, Eos % (Auto) 0.0, Baso % (Auto) 0.2, Absolute Neuts (auto) 19.1 H, Absolute Lymphs (auto) 0.95, Nucleated RBC % 0 11/14/19 19:15: Sodium 141, Potassium 3.9, Chloride 106, Carbon Dioxide 25.0, Anion Gap 10, BUN 48 H, Creatinine 3.03 H, Estim Creat Clear Calc 16.02, Est GFR (MDRD) Af Amer 26 L, Est GFR (MDRD) Non-Af 22 L, BUN/Creatinine Ratio 15.8, Glucose 142 H, Calcium 9.2, Total Bilirubin 1.50 H, AST 417 H, ALT 27, Alkaline Phosphatase 97, Total Protein 7.4, Albumin 3.4, Globulin 4.0, Albumin/Globulin Ratio 0.8 L 11/14/19 19:15: PT 15.0 H, INR 1.2, APTT 35.8 11/14/19 19:15: Troponin I 71.600 H* 11/14/19 19:15: B-Natriuretic Peptide 1050.9 H 11/14/19 20:00: Urine Color Red, Urine Clarity Cloudy, Urine pH 5.0, Ur Specific [place] 1.020, Urine Protein 500 H, Urine Glucose (UA) Normal, Urine Ketones 5 H , Urine Occult Blood 250 H, Urine Nitrite Negative, Urine Bilirubin Negative, Urine Urobilinogen Normal, Ur Leukocyte Esterase 500 H, Urine RBC > 100 SEEN, Ur ine WBC 0 SEEN, Ur Squamous Epith Cells 0-5 SEEN, Urine Bacteria 0 SEEN, Urine Mucus 0 SEEN 11/14/19 20:25: Lactic Acid 2.5 H* 11/14/19 21:15: COVID-19 (MALLY) Negative 11/14/19 21:53: Specimen Type ART, Sample Site R Radial, pH 7.24 L, Bicarbonate Actual 26.0, Total CO2 28, Base Excess -1, O2 Saturation 88 L, O2 % 100, ABG pCO2 61.0 H, ABG pO2 66 L, Respiration Rate 15.0000, O2 Delivery Device Adult Vent, Vent Mode AC, Tidal Volume 500 11/14/19 22:07: APTT 39.4 H 11/14/19 23:32: Troponin I 59.600 H* 11/15/19 00:00: MRSA (PCR) Negative 11/15/19 00:17: POC Glucose 140 H 11/15/19 00:37: Lactic Acid 1.6 11/15/19 02:40: Sodium 140, Potassium 3.9, Chloride 107, Carbon Dioxide 27.0, Anion Gap 6, BUN 49 H, Creatinine 2.89 H, Estim Creat Clear Calc 16.09, Est GFR (MDRD) Af Amer 27 L, Est GFR (MDRD) Non-Af 23 L, BUN/Creatinine Ratio 17.0, Glucose 132 H, Calcium 8.2 L, Phosphorus 4.0, Magnesium 2.4, Total Bilirubin 1.20 H, AST 297 H, ALT 29, Alkaline Phosphatase 77, Total Creatine Kinase 4577 H , Total Protein 6.1 L, Albumin 2.7 L, Globulin 3.4, Albumin/Globulin Ratio 0.8 L 11/15/19 02:40: Troponin I 76.300 H* 11/15/19 05:21: Specimen Type ART, Sample Site R Radial, pH 7.40, Bicarbonate Actual 23.6, Total CO2 25, Base Excess -1, O2 Saturation 95, O2 % 60, ABG pCO2 37.9, ABG pO2 76, [place] Test Positive, Respiration Rate 15.0000, O2 Delivery Device Adult Vent, Vent Mode AC, Tidal Volume 500 11/15/19 05:30: WBC 19.2 H, RBC 4.06 L, Hgb 12.4 L, Hct 38.9 L, MCV 95.8 H, MCH 30.5, MCHC 31.9 L, RDW Std Deviation 51.3 H, RDW Coeff of Sammi 14.8 H, Plt Count 161, MPV 11.5, Immature Gran % (Auto) 1.000 H, Neut % (Auto) 88.5 H, Lymph % (Auto) 5.3 L, [place] % (Auto) 4.3, Eos % (Auto) 0.7, Baso % (Auto) 0.2, Absolute Neuts (auto) 17.0 H, Absolute Lymphs (auto) 1.02, Nucleated RBC % 0, Differential Comment SCANNED 11/15/19 05:30: Troponin I 70.800 H* 11/15/19 05:30: APTT 161.0 H* 11/15/19 05:35: POC Glucose 135 H Current Medications Acetaminophen (Tylenol) 650 mg PO Q6H PRN PRN PRN Reason: Pain Score 1-10/Temp > 100.7 F Albuterol Sulfate (Ventolin Aerosols) 2.5 mg INHALATION Q2H PRN PRN PRN Reason: sob/wheezing Allopurinol (Zyloprim) 100 mg PO DAILYCM [facility] Amlodipine Besylate (Norvasc) 10 mg PO DAILY [facility] Aspirin (Ecotrin) 81 mg PO DAILY@0800 [facility] Brimonidine Tartrate (Brimonidine 0.2% 5ml Bottle) 1 drop EACH EYE BID [facility] Carbidopa/Levodopa (Sinemet) 2 tablet PO TIDAC [facility] Chlorhexidine Gluconate () 15 ml PO BID [facility] Dextrose (D50w Syringe) 0 gm IV X1 PRN; Protocol PRN Reason: Hypoglycemia Furosemide (Lasix) 40 mg IV BID@1000,1800 [facility] Glucagon () 1 mg IM .X1 PRN PRN Reason: Hypoglycemia Heparin Sodium (Porcine) (Heparin Na) 0 unit IV UD PRN; Protocol PRN Reason: dose adjustment Propofol (Diprivan) 1,000 mg in 100 mls @ 6.594 mls/hr CONT INF .Q12H [facility]; Protocol Last Titration: 11/15/19 06:00 Dose: 15 mcg/kg/min, 9.9 mls/hr Documented by: Heparin Sodium/Sodium Chloride () 25,000 unit in 250 mls @ 15 mls/hr IV .[id number] [facility]; Protocol Last Titration: 11/15/19 06:30 Dose: 0 units/hr, 0 mls/hr Documented by: Fentanyl Citrate 1,000 mcg/ (Sodium Chloride) 100 mls @ 2.5 mls/hr CONT INF .Q40H [facility]; Protocol Last Titration: 11/15/19 06:00 Dose: 25 mcg/hr, 2.5 mls/hr Documented by: Piperacillin Sod/Tazobactam (Sod 3.375 gm/ Sodium Chloride) 50 mls @ 12.5 mls/hr IV Q12 [facility] Vancomycin IV Pharmacy to Dose (1 ea/ Sodium Chloride) 500 mls @ 250 mls/hr IV PRN PRN; Protocol PRN Reason: Rx to Dose Sodium Chloride () 250 mls @ 15 mls/hr IV .[id number] PRN PRN Reason: Saline Flush Sodium Chloride () 250 mls @ 15 mls/hr IV .[id number] PRN PRN Reason: Additional IVPB Infusion Pantoprazole Sodium 40 mg/ (Sodium Chloride) 110 mls @ 330 mls/hr IV Q24@2200 [facility] Last Infusion: 11/15/19 00:54 Dose: Infused Documented by: Insulin Human Lispro (Humalog Kwikpen (Bkc)) 0 unit SC Q6 [facility]; Protocol Last Admin: 11/15/19 05:36 Dose: Not Given Documented by: Metoprolol Succinate (Toprol Xl (Beta Sharon)) 50 mg PO DAILY [facility] Ondansetron HCl (Zofran) 4 mg IV Q8H PRN PRN PRN Reason: NAUSEA/VOMITING Sodium Chloride () 10 - 40 ml IV UD PRN PRN Reason: SALINE FLUSH Last Admin: 11/15/19 04:48 Dose: 10 ml Documented by: Clinical Impression(s) from Imaging Studies Chest X-Ray 11/14/19 19:27 IMPRESSION: Findings consistent with CHF/fluid overload as clinically indicated. More confluent patchy multifocal left pulmonary opacities may indicate an acute infectious or malignant process as clinically indicated. Electronically Signed: Polo Hernandez, at 20:39 EDT Tel , Service support , Chest X-Ray 11/14/19 21:07 IMPRESSION: Endotracheal tube in a satisfactory position. Bilateral patchy and nodular opacities, may be secondary to multifocal pneumonia, cannot exclude a neoplastic process. Electronically Signed: Monica Rosario MD at 21:44 EDT Tel , Service support , Assessment/Plan Active and Suspected Problems CHIKA (acute kidney injury) (Acute) Heart failure (Acute) NSTEMI (non-ST elevated myocardial infarction) (Acute) RECOMMENDATIONS: 1. Await cardiology recommendations 2. Continue mechanical ventilation with spontaneous awakening and breathing trials per protocol 3. Hold on tube feeds for now pending cardiology recommendations 4. Possible diuresis, but defer to cardiology 5. Okay to discontinue vancomycin from my perspective 6. Will need speech to eval on extubation given history of silent aspiration IMPRESSIONS: 1. Acute combined respiratory failure secondary to probable non-ST elevation MA Patient with bilateral infiltrates. This may be secondary to congestive heart failure as patient does have an elevated BNP, lower extremity edema and elevated troponins. Aspiration would also be a consideration. Given the patient's nasal MRSA swab is negative, vancomycin can likely be discontinued. We will continue with Zosyn for now. Patient does have a leukocytosis, but this may be secondary to a stress reaction, not infection. We will continue to monitor. Patient should have spontaneous breathing and awakening trials per protocol. Patient does have a history of silent aspiration, so evaluation by speech therapy on extubation would be appropriate. 2. Non-ST elevation MA with presumed congestive heart failure/nonsustained ventricular tachycardia Cardiology has been contacted. Patient is currently on a heparin drip and remains relatively hemodynamically stable. Patient has had some nonsustained V. tach noted on telemetry, but no interventions were required. We will continue to replace electrolytes aggressively and await cardiology recommendations. Patient does appear to have some volume overload, but it is unclear when patient will go for heart catheterization, so we will hold on any diuretics at this time. Echocardiogram has been ordered. 3. Acute kidney injury on chronic kidney disease stage III Clinical suspicion for prerenal etiology secondary to protracted non-ST elevation MA. Patient did have an elevated troponin on presentation indicating this likely occurred hours before. Patient has had some improvement over the course of the hospitalization, but is not back to his baseline of approximately 2. We will continue to monitor. Patient will likely require hydration around contrast infusion. 4. Possible severe sepsis secondary to UTI versus pneumonia Patient does have a leukocytosis and a history of aspiration silently. Patient's MRSA is negative from the nasal swab, so will proceed with Zosyn as empiric therapy. Hold on any fluid boluses given patient's appearance of total body fluid positive. 5. Diabetes mellitus type 2/Parkinson's disease/elevated liver enzymes/history of gout/advanced age/morbid obesity Complicates care, management, recovery and prognosis. We will continue to monitor blood sugars closely. Metformin will be held given renal dysfunction and probable need for contrast. Patient does not appear to have an acute gout flare at this time. Recommend continuing Parkinson's medications if possible as this will facilitate better transition off the ventilator. TIME: 45 minutes critical care time spent addressing patient's respiratory failure, non-ST elevation MA, acute kidney injury, possible severe sepsis, review of all data and collaboration with care team (6 AM to 7:10 AM) [phone]: [id number] Critical care first hour
[2019-11-15] MEDS: Carbidopa/Levodopa 25/100 Tablet PO (06:59)
--- NOTE | 2019-11-15 08:13 | PCM.NTREPORT ---
Nutrition Therapy Report - History Nutrition Services has been consulted to:: Manage enteral nutrition Current diet / nutrition support order:: NPO w/ 1500 cc FR/day - Anthropometric Measurements Height:: 5 ft 2 in Weight:: 110.8 kg Body Mass Index (BMI):: 44.6 - Relevant Labs Relevant Labs:: WBC 19.2 K/mm3 (4.4-11.0) H 11/15/19 05:30 RBC 4.06 M/mm3 (4.6-6.2) L 11/15/19 05:30 Hgb 12.4 g/dL (13.0-16.5) L 11/15/19 05:30 Hct 38.9 % (40-54) L 11/15/19 05:30 MCV 95.8 fL (80-94) H 11/15/19 05:30 MCHC 31.9 g/dL (32-36) L 11/15/19 05:30 RDW Std Deviation 51.3 fl (35.1-43.9) H 11/15/19 05:30 RDW Coeff of Sammi 14.8 % (11.6-14.6) H 11/15/19 05:30 Immature Gran % (Auto) 1.000 % (0.0-0.9) H 11/15/19 05:30 Neut % (Auto) 88.5 % (47-70) H 11/15/19 05:30 Lymph % (Auto) 5.3 % (19-41) L 11/15/19 05:30 Absolute Neuts (auto) 17.0 X10^3/uL (2.0-7.7) H 11/15/19 05:30 PT 15.0 SECONDS (11.7-14.9) H 11/14/19 19:15 APTT 161.0 Seconds (24.1-36.2) H* 11/15/19 05:30 BUN 49 mg/dL (7-18) H 11/15/19 02:40 Creatinine 2.89 mg/dL (0.70-1.30) H 11/15/19 02:40 Est GFR (MDRD) Af Amer 27 mL/min (>60) L 11/15/19 02:40 Est GFR (MDRD) Non-Af 23 mL/min (>60) L 11/15/19 02:40 Glucose 132 mg/dL (74-106) H 11/15/19 02:40 Lactic Acid 2.5 mmol/L (0.4-1.9) H* 11/14/19 20:25 Calcium 8.2 mg/dL (8.5-10.1) L 11/15/19 02:40 Total Bilirubin 1.20 mg/dL (0.20-1.00) H 11/15/19 02:40 AST 297 U/L (15-37) H 11/15/19 02:40 Total Creatine Kinase 4577 U/L (39-308) H 11/15/19 02:40 Troponin I 70.800 ng/mL (<0.045) H* 11/15/19 05:30 B-Natriuretic Peptide 1050.9 pg/mL (0-100) H 11/14/19 19:15 Total Protein 6.1 g/dL (6.4-8.2) L 11/15/19 02:40 Albumin 2.7 g/dL (3.2-5.0) L 11/15/19 02:40 Albumin/Globulin Ratio 0.8 RATIO (0.9-2.4) L 11/15/19 02:40 - Assessment Food / Nutrition-Related History:: Unable to talk to pt d/t sedated and on vent - has OG in place. Pt w/ 4+ pitting BLE/nonpitting BUE edema - on diuretic - may see wt loss as fluid status improves. Per EMR: 12/04/17 UBW: 99.79 kg - Nutrition Diagnosis Problem / Etiology / Signs & Symptoms (PES):: Pt with suboptimal po intake r/t sedated and on vent AEB NPO status. Evidence of Malnutrition Exists:: No - Nutrition Intervention Nutrition Prescription:: Used ASPEN guidelines for critically obese pts : 22-25 libby/ kg IBW, 1-1.2 gm pro/kg IBW = 9540-3929 libby 110-132 gm pro/day. [ End ] - Food / Nutrient Delivery Interventions Summary of nutrition intervention:: As medically able to resume po diet, rec SAIGE to CHO Control, Cardiac-Heart Healthy w/ fluid restriction as indicated. If vent support to continue, rec Vital High Protein at goal rate 60 cc/hr w/ 60 cc flush every 6 hours to provide ~ 1440 libby / 125 gm pro / 1443 cc free water /day. Would start tf at 20 cc/hr and increase by 20 cc/hr every 8 hrs as pt tolerates until goal rate achieved. [ End ] Nutrition education provided?: No - MNT Monitoring Further MNT monitoring and evaluation required?: Yes MNT Follow-up in:: 1-2 days - if questions, please call RD/LD at x [phone]
[2019-11-15] MEDS: Chlorhexidine 15 ML PO ×2 (10:01→21:40)
[2019-11-15] MEDS: BRIMONIDINE 0.2% 5ML BOTTLE 1 DRP EACH EYE ×2 (10:02→21:40)
[2019-11-15] MEDS: Carbidopa/Levodopa 25/100 Tablet GT ×2 (10:02→16:06)
[2019-11-15] MEDS: Furosemide 40 MG/4 ML Vial IV ×2 (10:02→17:14)
[2019-11-15] MEDS: amLODIPine 10 MG Tablet GT (10:03)
[2019-11-15] MEDS: Allopurinol 100 MG Tablet GT (10:03)
[2019-11-15] MEDS: Aspirin 81 MG TAB.CHEW GT (10:05)
[2019-11-15] MEDS: Metoprolol Tartrate 25 MG Tablet GT (10:05)
--- NOTE | 2019-11-15 10:20 | CASEMGMT ---
RN CM called for initial transition planning/care coordination assessment, as patient is currently intubated. RN CM introduced self and role at [facility]. willing to participate in assessment and is able to answer all questions appropriately. Care providers, pharmacy, and demographics verified. is unsure of disposition at discharge. RN CM reviewed options of HHC, SNF, or Rehab Unit and will monitor how patient progresses with therapy. states she has no further needs or concerns at this time. CM to follow for discharge planning needs that may arise. PCP: Jeronimo Specialists: Dr Rick, Stone Dresser, [facility] Preferred Pharmacy: [facility] Insurance: [facility], [employer] Prescription Benefit: yes Living Will/HPOA: yes, Gely Alexis LNOK: , daughter, son Living Arrangements: Patient lives with in a two story home with half bath on main level. states they have room on main floor to setup patient's bed. Shower is on the second floor. Patient independent at home prior to hospitalization. Transportation: son or daughter DME/HHC: states patient has shower chair, raised toilet seat, cane, walker, grab bars, rollator, cpap, and nebulizer at home. denies previous HHC or SNF. Disposition Plan: TBD by course of treatment and progress with therapy. Patti CARBAJAL, RN, CM
--- NOTE | 2019-11-15 10:52 | PN_ITS ---
Patient Problems: Active and Suspected Problems CHIKA (acute kidney injury) (Acute) Heart failure (Acute) NSTEMI (non-ST elevated myocardial infarction) (Acute) Reason for Visit: Acute resp failure Subjective: Intubated. On vent. Vitals/I&O's: Vital Signs Temp Pulse Resp BP Pulse Ox 36.4 C L 91 17 116/62 96 11/15/19 04:00 11/15/19 10:05 11/15/19 10:00 11/15/19 10:00 11/15/19 10:00 Oxygen Flow Rate (L/min) 15 Oxygen Delivery Method Mechanical Ventilator Weight: 110.8 kg Body Mass Index (BMI) 44.6 Intake and Output for Last 24 Hours 11/13/19 11/14/19 11/15/19 23:59 23:59 23:59 Intake Total 101.305 / 103.505 926.21 / 926.21 Output Total 1050 / 1050 Balance 101.305 / -196.495 -123.79 / -123.79 General: - - intubated on vent HEENT: Atraumatic, Normocephalic, - - ETT OG in place Oral: Moist Mucosa, No Gingival or Mucosal Lesions/ Ulcerations Neck: Thyroid Normal Size and Texture Lungs: - - coarse breath sounds Cardiovascular: Regular rate, Regular Rhythm, Normal S1, Normal S2 Abdomen: Bowel Sounds Present, Soft, Non Tender, Non-Distended, No Hepato- splenomegaly Extremities: No edema, No Calf Tenderness Musculoskeletal: No Muscle Wasting Microbiology Past 72 Hours 11/14/19 20:00 Urine Catheter - Barker Legionella Antigen - Final 11/14/19 20:00 Urine Catheter - Barker Streptococcus pneumoniae Antigen (M - Final Laboratory Results 11/14/19 19:15: WBC 21.0 H, RBC 4.49 L, Hgb 13.9, Hct 43.3, MCV 96.4 H, MCH 31.0, MCHC 32.1, RDW Std Deviation 51.6 H, RDW Coeff of Sammi 14.7 H, Plt Count 192, MPV 11.9, Immature Gran % (Auto) 0.900, Neut % (Auto) 91.8 H, Lymph % (Auto) 4.6 L, [place] % (Auto) 2.5, Eos % (Auto) 0.0, Baso % (Auto) 0.2, Absolute Neuts (auto) 19.1 H, Absolute Lymphs (auto) 0.95, Nucleated RBC % 0 11/14/19 19:15: Sodium 141, Potassium 3.9, Chloride 106, Carbon Dioxide 25.0, Anion Gap 10, BUN 48 H, Creatinine 3.03 H, Estim Creat Clear Calc 16.02, Est GFR (MDRD) Af Amer 26 L, Est GFR (MDRD) Non-Af 22 L, BUN/Creatinine Ratio 15.8, Glucose 142 H, Calcium 9.2, Total Bilirubin 1.50 H, AST 417 H, ALT 27, Alkaline Phosphatase 97, Total Protein 7.4, Albumin 3.4, Globulin 4.0, Albumin/Globulin Ratio 0.8 L 11/14/19 19:15: PT 15.0 H, INR 1.2, APTT 35.8 11/14/19 19:15: Troponin I 71.600 H* 11/14/19 19:15: B-Natriuretic Peptide 1050.9 H 11/14/19 20:00: Urine Color Red, Urine Clarity Cloudy, Urine pH 5.0, Ur Specific [place] 1.020, Urine Protein 500 H, Urine Glucose (UA) Normal, Urine Ketones 5 H , Urine Occult Blood 250 H, Urine Nitrite Negative, Urine Bilirubin Negative, Urine Urobilinogen Normal, Ur Leukocyte Esterase 500 H, Urine RBC > 100 SEEN, Urine WBC 0 SEEN, Ur Squamous Epith Cells 0-5 SEEN, Urine Bacteria 0 SEEN, Urine Mucus 0 SEEN 11/14/19 20:25: Lactic Acid 2.5 H* 11/14/19 21:15: COVID-19 (MALLY) Negative 11/14/19 21:53: Specimen Type ART, Sample Site R Radial, pH 7.24 L, Bicarbonate Actual 26.0, Total CO2 28, Base Excess -1, O2 Saturation 88 L, O2 % 100, ABG pCO2 61.0 H, ABG pO2 66 L, Respiration Rate 15.0000, O2 Delivery Device Adult Vent, Vent Mode AC, Tidal Volume 500 11/14/19 22:07: APTT 39.4 H 11/14/19 23:32: Troponin I 59.600 H* 11/15/19 00:00: MRSA (PCR) Negative 11/15/19 00:17: POC Glucose 140 H 11/15/19 00:37: Lactic Acid 1.6 11/15/19 02:40: Sodium 140, Potassium 3.9, Chloride 107, Carbon Dioxide 27.0, Anion Gap 6, BUN 49 H, Creatinine 2.89 H, Estim Creat Clear Calc 16.09, Est GFR (MDRD) Af Amer 27 L, Est GFR (MDRD) Non-Af 23 L, BUN/Creatinine Ratio 17.0, Glucose 132 H, Calcium 8.2 L, Phosphorus 4.0, Magnesium 2.4, Total Bilirubin 1.20 H, AST 297 H, ALT 29, Alkaline Phosphatase 77, Total Creatine Kinase 4577 H , Total Protein 6.1 L, Albumin 2.7 L, Globulin 3.4, Albumin/Globulin Ratio 0.8 L 11/15/19 02:40: Troponin I 76.300 H* 11/15/19 05:21: Specimen Type ART, Sample Site R Radial, pH 7.40, Bicarbonate Actual 23.6, Total CO2 25, Base Excess -1, O2 Saturation 95, O2 % 60, ABG pCO2 37.9, ABG pO2 76, Jairo Test Positive, Respiration Rate 15.0000, O2 Delivery Device Adult Vent, Vent Mode AC, Tidal Volume 500 11/15/19 05:30: WBC 19.2 H, RBC 4.06 L, Hgb 12.4 L, Hct 38.9 L, MCV 95.8 H, MCH 30.5, MCHC 31.9 L, RDW Std Deviation 51.3 H, RDW Coeff of Sammi 14.8 H, Plt Count 161, MPV 11.5, Immature Gran % (Auto) 1.000 H, Neut % (Auto) 88.5 H, Lymph % (Auto) 5.3 L, [place] % (Auto) 4.3, Eos % (Auto) 0.7, Baso % (Auto) 0.2, Absolute Neuts (auto) 17.0 H, Absolute Lymphs (auto) 1.02, Nucleated RBC % 0, Differential Comment SCANNED 11/15/19 05:30: Troponin I 70.800 H* 11/15/19 05:30: APTT 161.0 H* 11/15/19 05:35: POC Glucose 135 H Current Medications Acetaminophen (Tylenol Liquid) 650 mg GT Q6H PRN PRN PRN Reason: Pain Score 1-10/Temp > 100.7 F Albuterol Sulfate (Ventolin Aerosols) 2.5 mg INHALATION Q2H PRN PRN PRN Reason: sob/wheezing Allopurinol (Zyloprim) 100 mg GT DAILYCM [facility] Last Admin: 11/15/19 10:03 Dose: 100 mg Documented by: Amlodipine Besylate (Norvasc) 10 mg GT DAILY [facility] Last Admin: 11/15/19 10:03 Dose: 10 mg Documented by: Aspirin (Aspirin, Baby) 81 mg GT DAILY@0800 [facility] Last Admin: 11/15/19 10:05 Dose: 81 mg Documented by: Brimonidine Tartrate (Brimonidine 0.2% 5ml Bottle) 1 drop EACH EYE BID [facility] Last Admin: 11/15/19 10:02 Dose: 1 drop Documented by: Carbidopa/Levodopa (Sinemet) 2 tablet GT TIDAC [facility] Last Admin: 11/15/19 10:02 Dose: 2 tablet Documented by: Chlorhexidine Gluconate () 15 ml PO BID [facility] Last Admin: 11/15/19 10:01 Dose: 15 ml Documented by: Dextrose (D50w Syringe) 0 gm IV X1 PRN; Protocol PRN Reason: Hypoglycemia Furosemide (Lasix) 40 mg IV BID@1000,1800 [facility] Last Admin: 11/15/19 10:02 Dose: 40 mg Documented by: Glucagon () 1 mg IM .X1 PRN PRN Reason: Hypoglycemia Heparin Sodium (Porcine) (Heparin Na) 0 unit IV UD PRN; Protocol PRN Reason: dose adjustment Propofol (Diprivan) 1,000 mg in 100 mls @ 6.594 mls/hr CONT INF .Q12H [facility]; Protocol Last Titration: 11/15/19 10:30 Dose: 15 mcg/kg/min, 9.9 mls/hr Documented by: Heparin Sodium/Sodium Chloride () 25,000 unit in 250 mls @ 15 mls/hr IV .[id number] [facility]; Protocol Last Titration: 11/15/19 10:00 Dose: 1,200 units/hr, 12 mls/hr Documented by: Fentanyl Citrate 1,000 mcg/ (Sodium Chloride) 100 mls @ 2.5 mls/hr CONT INF .Q4 0H [facility]; Protocol Last Titration: 11/15/19 10:00 Dose: 25 mcg/hr, 2.5 mls/hr Documented by: Piperacillin Sod/Tazobactam (Sod 3.375 gm/ Sodium Chloride) 50 mls @ 12.5 mls/hr IV Q12 [facility] Last Admin: 11/15/19 10:06 Dose: 12.5 mls/hr Documented by: Sodium Chloride () 250 mls @ 15 mls/hr IV .[id number] PRN PRN Reason: Saline Flush Sodium Chloride () 250 mls @ 15 mls/hr IV .[id number] PRN PRN Reason: Additional IVPB Infusion Pantoprazole Sodium 40 mg/ (Sodium Chloride) 110 mls @ 330 mls/hr IV Q24@2200 [facility] Last Infusion: 11/15/19 00:54 Dose: Infused Documented by: Insulin Human Lispro (Humalog Kwikpen (Bkc)) 0 unit SC Q6 [facility]; Protocol Last Admin: 11/15/19 05:36 Dose: Not Given Documented by: Metoprolol Tartrate (Lopressor (Beta [place])) 25 mg GT BID [facility] Last Admin: 11/15/19 10:05 Dose: 25 mg Documented by: Ondansetron HCl (Zofran) 4 mg IV Q8H PRN PRN PRN Reason: NAUSEA/VOMITING Sodium Chloride () 10 - 40 ml IV UD PRN PRN Reason: SALINE FLUSH Last Admin: 11/15/19 04:48 Dose: 10 ml Documented by: STROKE Vital Signs/Narrative: Vital Signs Pulse Resp BP Pulse Ox 11/15/19 10:05 91 11/15/19 10:00 86 17 116/62 96 11/15/19 09:00 93 18 125/55 H 95 11/15/19 08:15 98 11/15/19 08:00 94 18 125/62 H 96 11/15/19 07:00 97 20 H 123/61 H 95 Medical Necessity - Tobacco Use Smoking Status: Former smoker Assessment/Plan All Active Problems Weakness (Acute) Dysuria (Acute) CHIKA (acute kidney injury) (Acute) Heart failure (Acute) NSTEMI (non-ST elevated myocardial infarction) (Acute) 1. acute hypoxic and hypercapnic respiratory failure * 2/2 Pneumonia, CHF * on vent 2. severe sepsis * lactic acidosis resolved * 2/2 pneumonia * follow up cultures 3. NSTEMI * troponins peaked at 76.3 * on heparin gtt and metoprolol * cardiology on consult * echo done, results pending 4. acute heart failure * unclear type * follow up echo * on furosemide 5. CHIKA * on CKD III * baseline around 1.88. * monitor 6. Pneumonia * urinary antigens for legionella and strep * on pip/tazo * pulm toilet 7. rhabdomyolysis * monitor 8. DM2 * SSI 9. Debility * SNF on DC 10. Parkinson's disease * complicates overall recovery as would expect once medically ready for discharge, he will require SNF. * anticipate difficulty with swallowing post-extubation given known dysphagia. Speech therapy post extubation 11. VTE prophylaxis: anticoagulated. Inpatient E&M: 39475 Subs Hosp L2
--- NOTE | 2019-11-15 11:50 | PCM.CONS.C ---
Reason for Consult Date of Consultation: 11/15/19 Reason for Consultation: NSTEMI History of Present Illness: And is intubated, sedated. History is obtained from the medical records and from his . The patient is a 74 year old M with a significant history of COPD; CABG; pacemaker with defibrillation; diabetes mellitus; CKD stage III; and Parkinson disease who presents to the emergency department with weakness and SOB. Per family patient was weak in his legs, and his back and in his shoulders. His symptoms started a day before presentation. Also family noted that patient bilateral legs were swollen. Patient went to his PCPs office on the same day of presentation and was diagnosed with UTI. Per daughter, patient complained of burning with urination. Also daughter report that PCP told patient to increase his furosemide p.o.daily to twice daily. History was taken from patient's daughter because patient was intubated and sedated at the time of examination. Her daughter report that patient has shortness of breath with exertion but she thinks it is unchanged. At emergency department patient's BNP was elevated. Chest x-ray showed bilateral infiltrates. Also daughter reports that patient aspirated on water on the same day of presentation. In the emergency room patient was in respiratory distress and had to be intubated. His troponin was around 70, creatinine was around 3 which is higher than his baseline with seems to be around 2. Patient has history of A. fib status post ablation several years back. He also has history of coronary artery disease status post stent done prior to 2003 according to his . In 2003 patient had a syncopal episode and ended up requiring an ICD. The stents were placed prior to that. Patient recently had the ICD generator changed electively. Review of systems: Review of systems cannot be obtained since patient is intubated and sedated. Past Medical History Allergies/Adverse Reactions: Allergies No Known Allergies Allergy (Verified 04/09/19 13:14) Home Medications: Ambulatory Orders Medication Instructions Recorded Allopurinol [Zyloprim] 100 mg PO BIDCM 12/04/17 Amlodipine Besylate [Norvasc] 10 mg PO DAILY 12/04/17 Aspirin E.C. [Ecotrin] 81 mg PO DAILY@0800 12/04/17 Carbidopa/Levodopa [Carbidopa-Levo 2 each PO TID 12/04/17 25-100 mg Odt] Docusate Sodium [Colace] 200 mg PO DAILY 12/04/17 Esomeprazole Magnesium 40 mg PO DAILY 12/04/17 Fluticasone 110 Mcg [Flovent 110 1 puff INHALATION BID 12/04/17 Mcg] Metformin HCl 500 mg PO DAILY 12/04/17 Metoprolol Succinate [Toprol Xl] 50 mg PO DAILY 12/04/17 Multivit-Min/Folic/Vit K/Lycop 1 each PO DAILY 12/04/17 [One-A-Day Men's 50 Plus Tablet] [place]-3 Fatty Acids/Fish Oil [Fish 1 each PO DAILY 12/04/17 Oil 1,000 mg Capsule] Brimonidine Tartrate 0.2% 1 drop OPHTHALMIC BID 12/05/17 [Brimonidine 0.2% 5Ml Bottle] Furosemide 40 mg PO DAILY 04/09/19 Garlic 500 mg PO DAILY 04/09/19 Past Medical History (Chronic Problems): Chronic Problems CKD (chronic kidney disease) (Chronic) Parkinson disease (Chronic) Diabetes (Chronic) Surgical History: - - CABG, ablation for Afib Psychiatric History: No pertinent psych hx - *Family History Maternal History Items: Heart Disease, Hypertension Paternal History Items: - - History was taken from patient's daughter who is unsure of paternal medical history. She thinks that patient's father had colon cancer. Lives: With Family Smoking Status: Former smoker Objective: Vital Signs Temp Pulse Resp BP Pulse Ox 99.9 F H 79 18 107/61 96 11/15/19 10:00 11/15/19 11:02 11/15/19 11:00 11/15/19 11:00 11/15/19 11:00 Oxygen Flow Rate (L/min) 15 Oxygen Delivery Method Mechanical Ventilator Weight: 244 lb 4.355 oz Body Mass Index (BMI) 44.6 Intake and Output for Last 24 Hours 11/13/19 11/14/19 11/15/19 23:59 23:59 23:59 Intake Total 101.305 / 103.505 945.67 / 945.67 Output Total 1175 / 1175 Balance 101.305 / -196.495 -229.33 / -229.33 General: - - Intubated, sedated HEENT: Atraumatic Lungs: Clear to auscultation Cardiovascular: Regular Rhythm Abdomen: Soft Extremities: Bilateral Edema +1 11/14/19 19:15: WBC 21.0 H, RBC 4.49 L, Hgb 13.9, Hct 43.3, MCV 96.4 H, MCH 31.0, MCHC 32.1, Plt Count 192, MPV 11.9, Immature Gran % (Auto) 0.900, Neut % (Auto) 91.8 H, Lymph % (Auto) 4.6 L, [place] % (Auto) 2.5, Eos % (Auto) 0.0, Baso % (Auto) 0.2, Absolute Neuts (auto) 19.1 H, Nucleated RBC % 0 11/14/19 19:15: Sodium 141, Potassium 3.9, Chloride 106, Carbon Dioxide 25.0, Anion Gap 10, BUN 48 H, Creatinine 3.03 H, Est GFR (MDRD) Af Amer 26 L, Est GFR (MDRD) Non-Af 22 L, BUN/Creatinine Ratio 15.8, Glucose 142 H, Calcium 9.2, Total Bilirubin 1.50 H 11/14/19 19:15: PT 15.0 H, INR 1.2, APTT 35.8 11/14/19 19:15: Troponin I 71.600 H* 11/14/19 19:15: B-Natriuretic Peptide 1050.9 H 11/14/19 20:00: Urine Color Red, Urine Clarity Cloudy, Urine pH 5.0, Ur Specific [place] 1.020, Urine Protein 500 H, Urine Glucose (UA) Normal, Urine Ketones 5 H, Urine Occult Blood 250 H, Urine Nitrite Negative, Urine Bilirubin Negative, Urine Urobilinogen Normal, Ur Leukocyte Esterase 500 H, Urine RBC > 100 SEEN, Urine WBC 0 SEEN 11/14/19 20:25: Lactic Acid 2.5 H* 11/14/19 21:53: pH 7.24 L, Bicarbonate Actual 26.0, Base Excess -1, O2 Saturation 88 L, ABG pCO2 61.0 H, ABG pO2 66 L 11/14/19 22:07: APTT 39.4 H 11/14/19 23:32: Troponin I 59.600 H* 11/15/19 00:37: Lactic Acid 1.6 11/15/19 02:40: Sodium 140, Potassium 3.9, Chloride 107, Carbon Dioxide 27.0, Anion Gap 6, BUN 49 H, Creatinine 2.89 H, Est GFR (MDRD) Af Amer 27 L, Est GFR (MDRD) Non-Af 23 L, BUN/Creatinine Ratio 17.0, Glucose 132 H, Calcium 8.2 L, Phosphorus 4.0, Magnesium 2.4, Total Bilirubin 1.20 H 11/15/19 02:40: Troponin I 76.300 H* 11/15/19 05:21: pH 7.40, Bicarbonate Actual 23.6, Base Excess -1, O2 Saturation 95, ABG pCO2 37.9, ABG pO2 76, Jairo Test Positive 11/15/19 05:30: WBC 19.2 H, RBC 4.06 L, Hgb 12.4 L, Hct 38.9 L, MCV 95.8 H, MCH 30.5, MCHC 31.9 L, Plt Count 161, MPV 11.5, Immature Gran % (Auto) 1.000 H, Neut % (Auto) 88.5 H, Lymph % (Auto) 5.3 L, [place] % (Auto) 4.3, Eos % (Auto) 0.7, Baso % (Auto) 0.2, Absolute Neuts (auto) 17.0 H, Nucleated RBC % 0 11/15/19 05:30: Troponin I 70.800 H* 11/15/19 05:30: APTT 161.0 H* Rhythm: EKG: ECHO: Stress Test: Cardiac Cath: PCI: CT Surgery: Holter monitor: EPS: PPM: CXR: Chest CT Scan: Assessment/Plan 1. Elevated troponin: Patient appears to have had a non-STEMI. He has Q waves in the anterior leads which are new compared to an EKG in 2018. He has underlying right bundle branch block. His troponin appears to have peaked at around 76. His echo was reviewed and reveals an EF of 45% with apical akinesis. Patient has acute on chronic renal insufficiency. He is hemodynamically stable at this time. He did have 1 run of nonsustained V. tach that was about 20 beats. Since then he has remained electrically stable as well. Discussed the option of proceeding with coronary angiography right away or waiting to see if the creatinine gets better with the patient's and Dr. Son. I feel that at this point it will be better to wait and see if the creatinine gets better before proceeding with coronary angiography. Patient's infarct may have already been completed and appears that he has presented late. Continue IV heparin at this time. We can discontinue amlodipine to allow for further increase in beta-melissa dose as well as adding hydralazine and nitrate if patient is able to tolerate. Continue IV Lasix. 2. Nonsustained ventricular tachycardia: In the setting of [place]. Patient already has AICD. We will adjust the beta-melissa dose as tolerated as well. 3. CHF: Continue IV Lasix. We will stop the amlodipine and start hydralazine and nitrate and also adjust the beta-melissa dose. EF was 45% with apical akinesis. 4. Atrial fibrillation: Patient has history of A. fib ablation. Will monitor. 5. Status post AICD: This was done in 2003 with recent generator change. Will monitor.
[2019-11-15 12:15] LABS: Bedside Glucose 123 mg/dL (70-110)
[2019-11-15] MEDS: Clopidogrel Bisulfate 300 MG Tablet PO (13:40)
[2019-11-15 14:27] LABS: Partial Thromboplast Time 64.5 Seconds (24.1-36.2)
[2019-11-15 17:15] LABS: Bedside Glucose 92 mg/dL (70-110)
[2019-11-15] MEDS: Atorvastatin Calcium 40 MG Tablet PO (21:40)
[2019-11-15] MEDS: Carvedilol 12.5 MG Tablet PO (21:41)
[2019-11-16] VITALS (31 sets, daily range): BP systolic 102–142; BP diastolic 56–86; PULSE 78–97; RESP 15–28; TEMP 36.6–36.8; O2SAT 91–97
[2019-11-16 00:26] LABS: Bedside Glucose 115 mg/dL (70-110)
[2019-11-16 04:39] LABS: Partial Thromboplast Time 58.2 Seconds (24.1-36.2)
[2019-11-16 04:40] LABS: Absolute Lymphocyte Count 0.92 X10^3/uL (0.83-4.51); Absolute Neutrophil Count 10.7 X10^3/uL (2.0-7.7); Basophil# 0.04 X10^3/uL; Basophil% 0.3 % (0-1); Eosinophil# 0.03 X10^3/uL; Eosinophils% 0.2 % (0-5); Hematocrit 34.3 % (40-54); Hemoglobin 10.8 g/dL (13.0-16.5); Lymphocyte # 0.92 X10^3/ul (4.0); Lymphocyte % 7.4 % (19-41); Mean Corp Hgb Conc 31.5 g/dL (32-36); Mean Corpuscular Hgb 30.7 pg (27.0-32.0); Mean Corpuscular Volume 97.4 fL (80-94); Mean Platelet Vol. 12.2 fl (6.2-12.0); Monocyte% 5.6 % (0-10); NRBC Flagged by Analyzer 0 % (0-5); Neutrophil % 85.6 % (47-70); Platelet Count 149 K/mm3 (150-450); RBC Distribution Width SD 53.5 fl (35.1-43.9); Red Blood Count 3.52 M/mm3 (4.6-6.2); White Blood Count 12.5 K/mm3 (4.4-11.0)
[2019-11-16 04:45] LABS: Vancomycin, Random Level 9.1 ug/mL (0.0-15.0)
[2019-11-16 04:47] LABS: BUN 51 mg/dL (7-18); Creatinine, Serum 2.93 mg/dL (0.70-1.30); EST Glomerular Filtration Rate 22 mL/min (>60); Estimated Creatinine Clearance 16.56 ml/min; Glucose 117 mg/dL (74-106)
[2019-11-16 04:48] LABS: ALB/GLOB Ratio 0.6 RATIO (0.9-2.4); AST(SGOT) 184 U/L (15-37); Alanine Aminotransfer ALT/SGPT 16 U/L (16-61); Albumin, Serum 2.4 g/dL (3.2-5.0); Alkaline Phosphatase 73 U/L (45-117); Anion Gap 7 (5-15); BUN/Creat Ratio 17.4 RATIO (10-20); Calcium,Total 8.2 mg/dL (8.5-10.1); Chloride 107 mmol/L (98-107); Est Glom Filt Rate - Afr Amer 27 mL/min (>60); Globulin 3.7 g/dL (2.2-4.2); Potassium 3.5 mmol/L (3.5-5.1); Protein, Total 6.1 g/dL (6.4-8.2); Sodium Level 141 mmol/L (136-145)
[2019-11-16 06:30] LABS: Bedside Glucose 119 mg/dL (70-110)
[2019-11-16] MEDS: Carbidopa/Levodopa 25/100 Tablet GT (06:32)
[2019-11-16 06:40] LABS: Allen Test Positive; Base Excess 0 mmol/L (-2 to +2); Bicarbonate 24.4 mmol/L (22-26); Blood Gas Specimen Type ART; FI02 40; Mode CPAP/PS; O2 Delivery Device Adult Vent; PO2 66 mmHG (75-100); SITE L Radial; SO2 94 % (95-99); Total Carbon Dioxide 26 mmol/L; pCO2 36.1 mmHg (35-45); pH 7.44 (7.35-7.45)
--- NOTE | 2019-11-16 06:49 | PCM.PN.INT ---
Subjective: Patient did well overnight. Patient has had some intermittent PVCs, but no V. tach. Patient was able to pass a spontaneous breathing trial this morning and will be extubated under my direct supervision. Patient was interactive and denied any pain. No bleeding is been reported. General: Alert, Cooperative, No apparent distress, - - Morbidly obese. Breathing comfortably on spontaneous breathing trial HEENT: Atraumatic, PERRLA, EOMI, Normocephalic, - - No scleral icterus or injection noted Oral: Moist Mucosa, No Gingival or Mucosal Lesions/ Ulcerations, - - Crowded posterior pharynx Neck: Supple, No JVD, No Nodes, Trachea Midline Lungs: No rhonchi, No wheeze, No rales, Diminished, - - Symmetric expansion Cardiovascular: Regular rate, Regular Rhythm, Normal S1, Normal S2, No murmurs, No rub noted, No Gallop Abdomen: Bowel Sounds Present, Soft, Non Tender, Non-Distended, Obese Extremities: No clubbing, No cyanosis, Edema - Improving Skin: No rashes, No breakdown Musculoskeletal: No Tenderness to Palpation of Joints or Extremities Lymphatic: No Cervical, Supraclavicular, or Inguinal Adenopathy Neurological: Cranial nerves II-XII grossly intact, Neuro grossly intact, Motor Exam 5/5 strength throughout Psych/Mental Status: Normal Affect, Appropriate Vital Signs Temp Pulse Resp BP Pulse Ox 36.6 C 88 17 128/63 H 94 11/16/19 04:00 11/16/19 06:00 11/16/19 06:00 11/16/19 06:00 11/16/19 06:00 Oxygen Flow Rate (L/min) 15 Oxygen Delivery Method Mechanical Ventilator Weight: 108 kg Body Mass Index (BMI) 44.6 Intake and Output for Last 24 Hours 11/14/19 11/15/19 11/16/19 23:59 23:59 23:59 Intake Total 101.305 / 838.485 2968.71 / 1497.61 270.41 / 270.41 Output Total 2475 / 2675 675 / 675 Balance 101.305 / -196.495 -992.29 / -1177.39 -404.59 / -404.59 Labs (Last 48 Hours) 11/14/19 11/14/19 11/14/19 19:15 19:15 19:15 WBC 21.0 H RBC 4.49 L Hgb 13.9 Hct 43.3 MCV 96.4 H MCH 31.0 MCHC 32.1 RDW Std Deviation 51.6 H RDW Coeff of Sammi 14.7 H Plt Count 192 MPV 11.9 Immature Gran % (Auto) 0.900 Neut % (Auto) 91.8 H Lymph % (Auto) 4.6 L Miller % (Auto) 2.5 Eos % (Auto) 0.0 Baso % (Auto) 0.2 Absolute Neuts (auto) 19.1 H Absolute Lymphs (auto) 0.95 Nucleated RBC % 0 Differential Comment PT 15.0 H INR 1.2 APTT 35.8 Specimen Type Sample Site pH Bicarbonate Actual Total CO2 Base Excess O2 Saturation O2 % ABG pCO2 ABG pO2 Jairo Test Respiration Rate O2 Delivery Device Vent Mode Tidal Volume Sodium 141 Potassium 3.9 Chloride 106 Carbon Dioxide 25.0 Anion Gap 10 BUN 48 H Creatinine 3.03 H Estim Creat Clear Calc 16.02 Est GFR (MDRD) Af Amer 26 L Est GFR (MDRD) Non-Af 22 L BUN/Creatinine Ratio 15.8 Glucose 142 H Lactic Acid Calcium 9.2 Phosphorus Magnesium Total Bilirubin 1.50 H AST 417 H ALT 27 Alkaline Phosphatase 97 Total Creatine Kinase Troponin I B-Natriuretic Peptide Total Protein 7.4 Albumin 3.4 Globulin 4.0 Albumin/Globulin Ratio 0.8 L Urine Color Urine Clarity Urine pH Ur Specific Howell Urine Protein Urine Glucose (UA) Urine Ketones Urine Occult Blood Urine Nitrite Urine Bilirubin Urine Urobilinogen Ur Leukocyte Esterase Urine RBC Urine WBC Ur Squamous Epith Cells Urine Bacteria Urine Mucus Random Vancomycin COVID-19 (MALLY) MRSA (PCR) POC Glucose 11/14/19 11/14/19 11/14/19 19:15 19:15 20:00 WBC RBC Hgb Hct MCV MCH MCHC RDW Std Deviation RDW Coeff of Sammi Plt Count MPV Immature Gran % (Auto) Neut % (Auto) Lymph % (Auto) Miller % (Auto) Eos % (Auto) Baso % (Auto) Absolute Neuts (auto) Absolute Lymphs (auto) Nucleated RBC % Differential Comment PT INR APTT Specimen Type Sample Site pH Bicarbonate Actual Total CO2 Base Excess O2 Saturation O2 % ABG pCO2 ABG pO2 Jairo Test Respiration Rate O2 Delivery Device Vent Mode Tidal Volume Sodium Potassium Chloride Carbon Dioxide Anion Gap BUN Creatinine Estim Creat Clear Calc Est GFR (MDRD) Af Amer Est GFR (MDRD) Non-Af BUN/Creatinine Ratio Glucose Lactic Acid Calcium Phosphorus Magnesium Total Bilirubin AST ALT Alkaline Phosphatase Total Creatine Kinase Troponin I 71.600 H* B-Natriuretic Peptide 1050.9 H Total Protein Albumin Globulin Albumin/Globulin Ratio Urine Color Red Urine Clarity Cloudy Urine pH 5.0 Ur Specific Howell 1.020 Urine Protein 500 H Urine Glucose (UA) Normal Urine Ketones 5 H Urine Occult Blood 250 H Urine Nitrite Negative Urine Bilirubin Negative Urine Urobilinogen Normal Ur Leukocyte Esterase 500 H Urine RBC > 100 SEEN Urine WBC 0 SEEN Ur Squamous Epith Cells 0-5 SEEN Urine Bacteria 0 SEEN Urine Mucus 0 SEEN Random Vancomycin COVID-19 (MALLY) MRSA (PCR) POC Glucose 11/14/19 11/14/19 11/14/19 20:25 21:15 21:53 WBC RBC Hgb Hct MCV MCH MCHC RDW Std Deviation RDW Coeff of Sammi Plt Count MPV Immature Gran % (Auto) Neut % (Auto) Lymph % (Auto) Miller % (Auto) Eos % (Auto) Baso % (Auto) Absolute Neuts (auto) Absolute Lymphs (auto) Nucleated RBC % Differential Comment PT INR APTT Specimen Type ART Sample Site R Radial pH 7.24 L Bicarbonate Actual 26.0 Total CO2 28 Base Excess -1 O2 Saturation 88 L O2 % 100 ABG pCO2 61.0 H ABG pO2 66 L Jairo Test Respiration Rate 15.0000 O2 Delivery Device Adult Vent Vent Mode AC Tidal Volume 500 Sodium Potassium Chloride Carbon Dioxide Anion Gap BUN Creatinine Estim Creat Clear Calc Est GFR (MDRD) Af Amer Est GFR (MDRD) Non-Af BUN/Creatinine Ratio Glucose Lactic Acid 2.5 H* Calcium Phosphorus Magnesium Total Bilirubin AST ALT Alkaline Phosphatase Total Creatine Kinase Troponin I B-Natriuretic Peptide Total Protein Albumin Globulin Albumin/Globulin Ratio Urine Color Urine Clarity Urine pH Ur Specific Howell Urine Protein Urine Glucose (UA) Urine Ketones Urine Occult Blood Urine Nitrite Urine Bilirubin Urine Urobilinogen Ur Leukocyte Esterase Urine RBC Urine WBC Ur Squamous Epith Cells Urine Bacteria Urine Mucus Random Vancomycin COVID-19 (MALLY) Negative MRSA (PCR) POC Glucose 11/14/19 11/14/19 11/15/19 22:07 23:32 00:00 WBC RBC Hgb Hct MCV MCH MCHC RDW Std Deviation RDW Coeff of Sammi Plt Count MPV Immature Gran % (Auto) Neut % (Auto) Lymph % (Auto) Miller % (Auto) Eos % (Auto) Baso % (Auto) Absolute Neuts (auto) Absolute Lymphs (auto) Nucleated RBC % Differential Comment PT INR APTT 39.4 H Specimen Type Sample Site pH Bicarbonate Actual Total CO2 Base Excess O2 Saturation O2 % ABG pCO2 ABG pO2 Jairo Test Respiration Rate O2 Delivery Device Vent Mode Tidal Volume Sodium Potassium Chloride Carbon Dioxide Anion Gap BUN Creatinine Estim Creat Clear Calc Est GFR (MDRD) Af Amer Est GFR (MDRD) Non-Af BUN/Creatinine Ratio Glucose Lactic Acid Calcium Phosphorus Magnesium Total Bilirubin AST ALT Alkaline Phosphatase Total Creatine Kinase Troponin I 59.600 H* B-Natriuretic Peptide Total Protein Albumin Globulin Albumin/Globulin Ratio Urine Color Urine Clarity Urine pH Ur Specific Howell Urine Protein Urine Glucose (UA) Urine Ketones Urine Occult Blood Urine Nitrite Urine Bilirubin Urine Urobilinogen Ur Leukocyte Esterase Urine RBC Urine WBC Ur Squamous Epith Cells Urine Bacteria Urine Mucus Random Vancomycin COVID-19 (MALLY) MRSA (PCR) Negative POC Glucose 11/15/19 11/15/19 11/15/19 00:17 00:37 02:40 WBC RBC Hgb Hct MCV MCH MCHC RDW Std Deviation RDW Coeff of Sammi Plt Count MPV Immature Gran % (Auto) Neut % (Auto) Lymph % (Auto) Miller % (Auto) Eos % (Auto) Baso % (Auto) Absolute Neuts (auto) Absolute Lymphs (auto) Nucleated RBC % Differential Comment PT INR APTT Specimen Type Sample Site pH Bicarbonate Actual Total CO2 Base Excess O2 Saturation O2 % ABG pCO2 ABG pO2 Jairo Test Respiration Rate O2 Delivery Device Vent Mode Tidal Volume Sodium 140 Potassium 3.9 Chloride 107 Carbon Dioxide 27.0 Anion Gap 6 BUN 49 H Creatinine 2.89 H Estim Creat Clear Calc 16.09 Est GFR (MDRD) Af Amer 27 L Est GFR (MDRD) Non-Af 23 L BUN/Creatinine Ratio 17.0 Glucose 132 H Lactic Acid 1.6 Calcium 8.2 L Phosphorus 4.0 Magnesium 2.4 Total Bilirubin 1.20 H AST 297 H ALT 29 Alkaline Phosphatase 77 Total Creatine Kinase 4577 H Troponin I B-Natriuretic Peptide Total Protein 6.1 L Albumin 2.7 L Globulin 3.4 Albumin/Globulin Ratio 0.8 L Urine Color Urine Clarity Urine pH Ur Specific Howell Urine Protein Urine Glucose (UA) Urine Ketones Urine Occult Blood Urine Nitrite Urine Bilirubin Urine Urobilinogen Ur Leukocyte Esterase Urine RBC Urine WBC Ur Squamous Epith Cells Urine Bacteria Urine Mucus Random Vancomycin COVID-19 (MALLY) MRSA (PCR) POC Glucose 140 H 11/15/19 11/15/19 11/15/19 02:40 05:21 05:30 WBC 19.2 H RBC 4.06 L Hgb 12.4 L Hct 38.9 L MCV 95.8 H MCH 30.5 MCHC 31.9 L RDW Std Deviation 51.3 H RDW Coeff of Sammi 14.8 H Plt Count 161 MPV 11.5 Immature Gran % (Auto) 1.000 H Neut % (Auto) 88.5 H Lymph % (Auto) 5.3 L Miller % (Auto) 4.3 Eos % (Auto) 0.7 Baso % (Auto) 0.2 Absolute Neuts (auto) 17.0 H Absolute Lymphs (auto) 1.02 Nucleated RBC % 0 Differential Comment SCANNED PT INR APTT Specimen Type ART Sample Site R Radial pH 7.40 Bicarbonate Actual 23.6 Total CO2 25 Base Excess -1 O2 Saturation 95 O2 % 60 ABG pCO2 37.9 ABG pO2 76 Jairo Test Positive Respiration Rate 15.0000 O2 Delivery Device Adult Vent Vent Mode AC Tidal Volume 500 Sodium Potassium Chloride Carbon Dioxide Anion Gap BUN Creatinine Estim Creat Clear Calc Est GFR (MDRD) Af Amer Est GFR (MDRD) Non-Af BUN/Creatinine Ratio Glucose Lactic Acid Calcium Phosphorus Magnesium Total Bilirubin AST ALT Alkaline Phosphatase Total Creatine Kinase Troponin I 76.300 H* B-Natriuretic Peptide Total Protein Albumin Globulin Albumin/Globulin Ratio Urine Color Urine Clarity Urine pH Ur Specific Howell Urine Protein Urine Glucose (UA) Urine Ketones Urine Occult Blood Urine Nitrite Urine Bilirubin Urine Urobilinogen Ur Leukocyte Esterase Urine RBC Urine WBC Ur Squamous Epith Cells Urine Bacteria Urine Mucus Random Vancomycin COVID-19 (MALLY) MRSA (PCR) POC Glucose 11/15/19 11/15/19 11/15/19 05:30 05:30 05:35 WBC RBC Hgb Hct MCV MCH MCHC RDW Std Deviation RDW Coeff of Sammi Plt Count MPV Immature Gran % (Auto) Neut % (Auto) Lymph % (Auto) Miller % (Auto) Eos % (Auto) Baso % (Auto) Absolute Neuts (auto) Absolute Lymphs (auto) Nucleated RBC % Differential Comment PT INR APTT 161.0 H* Specimen Type Sample Site pH Bicarbonate Actual Total CO2 Base Excess O2 Saturation O2 % ABG pCO2 ABG pO2 Jairo Test Respiration Rate O2 Delivery Device Vent Mode Tidal Volume Sodium Potassium Chloride Carbon Dioxide Anion Gap BUN Creatinine Estim Creat Clear Calc Est GFR (MDRD) Af Amer Est GFR (MDRD) Non-Af BUN/Creatinine Ratio Glucose Lactic Acid Calcium Phosphorus Magnesium Total Bilirubin AST ALT Alkaline Phosphatase Total Creatine Kinase Troponin I 70.800 H* B-Natriuretic Peptide Total Protein Albumin Globulin Albumin/Globulin Ratio Urine Color Urine Clarity Urine pH Ur Specific Howell Urine Protein Urine Glucose (UA) Urine Ketones Urine Occult Blood Urine Nitrite Urine Bilirubin Urine Urobilinogen Ur Leukocyte Esterase Urine RBC Urine WBC Ur Squamous Epith Cells Urine Bacteria Urine Mucus Random Vancomycin COVID-19 (MALLY) MRSA (PCR) POC Glucose 135 H 11/15/19 11/15/19 11/15/19 12:13 14:00 17:10 WBC RBC Hgb Hct MCV MCH MCHC RDW Std Deviation RDW Coeff of Sammi Plt Count MPV Immature Gran % (Auto) Neut % (Auto) Lymph % (Auto) Miller % (Auto) Eos % (Auto) Baso % (Auto) Absolute Neuts (auto) Absolute Lymphs (auto) Nucleated RBC % Differential Comment PT INR APTT 64.5 H Specimen Type Sample Site pH Bicarbonate Actual Total CO2 Base Excess O2 Saturation O2 % ABG pCO2 ABG pO2 Jairo Test Respiration Rate O2 Delivery Device Vent Mode Tidal Volume Sodium Potassium Chloride Carbon Dioxide Anion Gap BUN Creatinine Estim Creat Clear Calc Est GFR (MDRD) Af Amer Est GFR (MDRD) Non-Af BUN/Creatinine Ratio Glucose Lactic Acid Calcium Phosphorus Magnesium Total Bilirubin AST ALT Alkaline Phosphatase Total Creatine Kinase Troponin I B-Natriuretic Peptide Total Protein Albumin Globulin Albumin/Globulin Ratio Urine Color Urine Clarity Urine pH Ur Specific Howell Urine Protein Urine Glucose (UA) Urine Ketones Urine Occult Blood Urine Nitrite Urine Bilirubin Urine Urobilinogen Ur Leukocyte Esterase Urine RBC Urine WBC Ur Squamous Epith Cells Urine Bacteria Urine Mucus Random Vancomycin COVID-19 (MALLY) MRSA (PCR) POC Glucose 123 H 92 11/15/19 11/16/19 11/16/19 20:20 00:21 04:15 WBC RBC Hgb Hct MCV MCH MCHC RDW Std Deviation RDW Coeff of Sammi Plt Count MPV Immature Gran % (Auto) Neut % (Auto) Lymph % (Auto) Miller % (Auto) Eos % (Auto) Baso % (Auto) Absolute Neuts (auto) Absolute Lymphs (auto) Nucleated RBC % Differential Comment PT INR APTT 65.0 H Specimen Type Sample Site pH Bicarbonate Actual Total CO2 Base Excess O2 Saturation O2 % ABG pCO2 ABG pO2 Jairo Test Respiration Rate O2 Delivery Device Vent Mode Tidal Volume Sodium Potassium Chloride Carbon Dioxide Anion Gap BUN Creatinine Estim Creat Clear Calc Est GFR (MDRD) Af Amer Est GFR (MDRD) Non-Af BUN/Creatinine Ratio Glucose Lactic Acid Calcium Phosphorus Magnesium Total Bilirubin AST ALT Alkaline Phosphatase Total Creatine Kinase Troponin I B-Natriuretic Peptide Total Protein Albumin Globulin Albumin/Globulin Ratio Urine Color Urine Clarity Urine pH Ur Specific Howell Urine Protein Urine Glucose (UA) Urine Ketones Urine Occult Blood Urine Nitrite Urine Bilirubin Urine Urobilinogen Ur Leukocyte Esterase Urine RBC Urine WBC Ur Squamous Epith Cells Urine Bacteria Urine Mucus Random Vancomycin 9.1 COVID-19 (MALLY) MRSA (PCR) POC Glucose 115 H 11/16/19 11/16/19 11/16/19 04:15 04:15 04:15 WBC 12.5 H RBC 3.52 L Hgb 10.8 L Hct 34.3 L MCV 97.4 H MCH 30.7 MCHC 31.5 L RDW Std Deviation 53.5 H RDW Coeff of Sammi 15.0 H Plt Count 149 L MPV 12.2 H Immature Gran % (Auto) 0.900 Neut % (Auto) 85.6 H Lymph % (Auto) 7.4 L Miller % (Auto) 5.6 Eos % (Auto) 0.2 Baso % (Auto) 0.3 Absolute Neuts (auto) 10.7 H Absolute Lymphs (auto) 0.92 Nucleated RBC % 0 Differential Comment PT INR APTT 58.2 H Specimen Type Sample Site pH Bicarbonate Actual Total CO2 Base Excess O2 Saturation O2 % ABG pCO2 ABG pO2 Jairo Test Respiration Rate O2 Delivery Device Vent Mode Tidal Volume Sodium 141 Potassium 3.5 Chloride 107 Carbon Dioxide 27.0 Anion Gap 7 BUN 51 H Creatinine 2.93 H Estim Creat Clear Calc 16.56 Est GFR (MDRD) Af Amer 27 L Est GFR (MDRD) Non-Af 22 L BUN/Creatinine Ratio 17.4 Glucose 117 H Lactic Acid Calcium 8.2 L Phosphorus Magnesium Total Bilirubin 0.90 AST 184 H ALT 16 Alkaline Phosphatase 73 Total Creatine Kinase Troponin I B-Natriuretic Peptide Total Protein 6.1 L Albumin 2.4 L Globulin 3.7 Albumin/Globulin Ratio 0.6 L Urine Color Urine Clarity Urine pH Ur Specific Howell Urine Protein Urine Glucose (UA) Urine Ketones Urine Occult Blood Urine Nitrite Urine Bilirubin Urine Urobilinogen Ur Leukocyte Esterase Urine RBC Urine WBC Ur Squamous Epith Cells Urine Bacteria Urine Mucus Random Vancomycin COVID-19 (MALLY) MRSA (PCR) POC Glucose 11/16/19 11/16/19 06:26 06:34 WBC RBC Hgb Hct MCV MCH MCHC RDW Std Deviation RDW Coeff of Sammi Plt Count MPV Immature Gran % (Auto) Neut % (Auto) Lymph % (Auto) Miller % (Auto) Eos % (Auto) Baso % (Auto) Absolute Neuts (auto) Absolute Lymphs (auto) Nucleated RBC % Differential Comment PT INR APTT Specimen Type ART Sample Site L Radial pH 7.44 Bicarbonate Actual 24.4 Total CO2 26 Base Excess 0 O2 Saturation 94 L O2 % 40 ABG pCO2 36.1 ABG pO2 66 L Jairo Test Positive Respiration Rate O2 Delivery Device Adult Vent Vent Mode CPAP/PS Tidal Volume Sodium Potassium Chloride Carbon Dioxide Anion Gap BUN Creatinine Estim Creat Clear Calc Est GFR (MDRD) Af Amer Est GFR (MDRD) Non-Af BUN/Creatinine Ratio Glucose Lactic Acid Calcium Phosphorus Magnesium Total Bilirubin AST ALT Alkaline Phosphatase Total Creatine Kinase Troponin I B-Natriuretic Peptide Total Protein Albumin Globulin Albumin/Globulin Ratio Urine Color Urine Clarity Urine pH Ur Specific Howell Urine Protein Urine Glucose (UA) Urine Ketones Urine Occult Blood Urine Nitrite Urine Bilirubin Urine Urobilinogen Ur Leukocyte Esterase Urine RBC Urine WBC Ur Squamous Epith Cells Urine Bacteria Urine Mucus Random Vancomycin COVID-19 (MALLY) MRSA (PCR) POC Glucose 119 H Microbiology 11/15/19 00:00 Sputum, Induced/Lukens Gram Stain - Final 11/14/19 20:00 Urine Catheter - Catheter Urine Culture - Preliminary Presumptive E. coli 11/14/19 20:00 Urine Catheter - Barker Legionella Antigen - Final 11/14/19 20:00 Urine Catheter - Barker Streptococcus pneumoniae Antigen (M - Final Medical Necessity - Tobacco Use Smoking Status: Former smoker Assessment/Plan All Active Problems Weakness (Acute) Dysuria (Acute) CHIKA (acute kidney injury) (Acute) Heart failure (Acute) NSTEMI (non-ST elevated myocardial infarction) (Acute) RECOMMENDATIONS: 1. Okay to extubate 2. Speech evaluation prior to p.o. 3. We will decrease diuresis in hopes of improving creatinine for possible cardiac catheterization 4. Continue empiric antibiotics for now 5. Increase activity as tolerated IMPRESSIONS: 1. Acute combined respiratory failure secondary to probable non-ST elevation UT Patient with bilateral infiltrates. This may be secondary to congestive heart failure as patient does have an elevated BNP, lower extremity edema and elevated troponins. Aspiration would also be a consideration. Patient's leukocytosis is much improved compared to yesterday. Clinical suspicion for pulmonary edema leading to the majority of hypoxic respiratory failure. Patient did respond well to Lasix therapy. Will decrease Lasix and attempt to improve renal function for anticipated cardiac catheterization. Patient may require BiPAP with sleep as there is high suspicion for sleep disordered breathing with Parkinson's, obesity and CHF. There was some concern for possible tube leak, but this appeared to be positional and patient was successfully extubated. 2. Non-ST elevation UT with presumed congestive heart failure/nonsustained ventricular tachycardia Cardiology has been contacted. Patient is currently on a heparin drip and remains relatively hemodynamically stable. Patient has had some nonsustained V. tach noted on telemetry, but no interventions were required. We will continue to replace electrolytes aggressively and await cardiology recommendations. There is a reduction in EF to 45% with an akinetic apex. Cardiology is requesting medical optimization prior to any intervention. We will continue with heparin for now. 3. Acute kidney injury on chronic kidney disease stage III Clinical suspicion for prerenal etiology secondary to protracted non-ST elevation UT. Patient did have an elevated troponin on presentation indicating this likely occurred hours before. Patient has had some improvement over the course of the hospitalization, but is not back to his baseline of approximately 2. We will continue to monitor. Patient will likely require hydration around contrast infusion to minimize risk of contrast-induced nephropathy. 4. Possible severe sepsis secondary to UTI versus pneumonia Patient does have a leukocytosis and a history of aspiration silently. Patient's MRSA is negative from the nasal swab, so will proceed with Zosyn as empiric therapy. Hold on any fluid boluses given patient's appearance of total body fluid positive. 5. Diabetes mellitus type 2/Parkinson's disease/elevated liver enzymes/history of gout/advanced age/morbid obesity Complicates care, management, recovery and prognosis. We will continue to monitor blood sugars closely. Metformin will be held given renal dysfunction and probable need for contrast. Patient does not appear to have an acute gout flare at this time. Recommend continuing Parkinson's medications if possible as this will facilitate better transition off the ventilator. TIME: 35 minutes critical care time spent addressing patient's respiratory failure, non-ST elevation UT, acute kidney injury, possible severe sepsis, review of all data and collaboration with care team (5:20 AM to 6:20 AM) [id number]: [id number] Critical care first hour
[2019-11-16] MEDS: Aspirin 81 MG TAB.CHEW PO (10:35)
[2019-11-16] MEDS: Clopidogrel Bisulfate 75 MG Tablet PO (10:36)
[2019-11-16] MEDS: Carbidopa/Levodopa 25/100 Tablet PO ×2 (10:36→16:19)
[2019-11-16] MEDS: Carvedilol 12.5 MG Tablet PO ×2 (10:36→21:51)
[2019-11-16] MEDS: Allopurinol 100 MG Tablet PO (10:36)
[2019-11-16] MEDS: Furosemide 40 MG/4 ML Vial IV (10:41)
[2019-11-16] MEDS: BRIMONIDINE 0.2% 5ML BOTTLE 1 DRP EACH EYE (10:41)
[2019-11-16] MEDS: 0.9% Saline Lock 10 ML Syringe IV (10:51)
--- NOTE | 2019-11-16 10:51 | PCM.PN.HOSP ---
Patient Problems: Active and Suspected Problems CHIKA (acute kidney injury) (Acute) Heart failure (Acute) NSTEMI (non-ST elevated myocardial infarction) (Acute) Reason for Visit: severe sepsis Subjective: Extubated today. Denies SOB. Wants to eat and drink. Vitals/I&O's: Vital Signs Temp Pulse Resp BP Pulse Ox 36.6 C 92 18 129/72 H 91 11/16/19 04:00 11/16/19 07:00 11/16/19 07:44 11/16/19 07:00 11/16/19 07:44 Oxygen Flow Rate (L/min) 5 Oxygen Delivery Method Nasal Cannula Weight: 108 kg Body Mass Index (BMI) 44.6 Intake and Output for Last 24 Hours 11/14/19 11/15/19 11/16/19 23:59 23:59 23:59 Intake Total 101.305 / 485.661 1909.71 / 1497.61 287.61 / 287.61 Output Total 2475 / 2675 775 / 775 Balance 101.305 / -196.495 -992.29 / -1177.39 -487.39 / -487.39 General: Alert, No apparent distress HEENT: Atraumatic, Normocephalic Oral: Moist Mucosa, No Gingival or Mucosal Lesions/ Ulcerations Neck: No Nodes, Thyroid Normal Size and Texture Lungs: Normal air movement, - - coarse breath sounds Cardiovascular: Regular rate, Regular Rhythm, Normal S1, Normal S2, No murmurs Abdomen: Bowel Sounds Present, Soft, Non Tender, Non-Distended, No Hepato-splenomegaly Extremities: No Calf Tenderness, Edema Psych/Mental Status: Normal Affect, Appropriate Microbiology Past 72 Hours 11/15/19 00:00 Sputum, Induced/Lukens Gram Stain - Final 11/15/19 00:00 Sputum, Induced/Lukens Respiratory Culture - Preliminary Appears to be normal respiratory isidra. Further studies to follow. 11/14/19 20:00 Urine Catheter - Catheter Urine Culture - Final Presumptive E. coli 11/14/19 20:00 Urine Catheter - Barker Legionella Antigen - Final 11/14/19 20:00 Urine Catheter - Barker Streptococcus pneumoniae Antigen (M - Final Laboratory Results 11/15/19 12:13: POC Glucose 123 H 11/15/19 14:00: APTT 64.5 H 11/15/19 17:10: POC Glucose 92 11/15/19 20:20: APTT 65.0 H 11/16/19 00:21: POC Glucose 115 H 11/16/19 04:15: Random Vancomycin 9.1 11/16/19 04:15: WBC 12.5 H, RBC 3.52 L, Hgb 10.8 L, Hct 34.3 L, MCV 97.4 H, MCH 30.7, MCHC 31.5 L, RDW Std Deviation 53.5 H, RDW Coeff of Sammi 15.0 H, Plt Count 149 L, MPV 12.2 H, Immature Gran % (Auto) 0.900, Neut % (Auto) 85.6 H, Lymph % (Auto) 7.4 L, [place] % (Auto) 5.6, Eos % (Auto) 0.2, Baso % (Auto) 0.3, Absolute Neuts (auto) 10.7 H, Absolute Lymphs (auto) 0.92, Nucleated RBC % 0 11/16/19 04:15: APTT 58.2 H 11/16/19 04:15: Sodium 141, Potassium 3.5, Chloride 107, Carbon Dioxide 27.0, Anion Gap 7, BUN 51 H, Creatinine 2.93 H, Estim Creat Clear Calc 16.56, Est GFR (MDRD) Af Amer 27 L, Est GFR (MDRD) Non-Af 22 L, BUN/Creatinine Ratio 17.4, Glucose 117 H, Calcium 8.2 L, Total Bilirubin 0.90, AST 184 H, ALT 16, Alkaline Phosphatase 73, Total Protein 6.1 L, Albumin 2.4 L, Globulin 3.7, Albumin/Globulin Ratio 0.6 L 11/16/19 06:26: POC Glucose 119 H 11/16/19 06:34: Specimen Type ART, Sample Site L Radial, pH 7.44, Bicarbonate Actual 24.4, Total CO2 26, Base Excess 0, O2 Saturation 94 L, O2 % 40, ABG pCO2 36.1, ABG pO2 66 L, Jairo Test Positive, O2 Delivery Device Adult Vent, Vent Mode CPAP/PS Current Medications Acetaminophen (Tylenol Liquid) 650 mg GT Q6H PRN PRN PRN Reason: Pain Score 1-10/Temp > 100.7 F Albuterol Sulfate (Ventolin Aerosols) 2.5 mg INHALATION Q2H PRN PRN PRN Reason: sob/wheezing Allopurinol (Zyloprim) 100 mg PO DAILYCM ON LICENSE OF [facility] Last Admin: 11/16/19 10:36 Dose: 100 mg Documented by: Aspirin (Aspirin, Baby) 81 mg PO DAILY@0800 ON LICENSE OF [facility] Last Admin: 11/16/19 10:35 Dose: 81 mg Documented by: Atorvastatin Calcium (Lipitor) 40 mg PO QHS ON LICENSE OF [facility] Last Admin: 11/15/19 21:40 Dose: 40 mg Documented by: Brimonidine Tartrate (Brimonidine 0.2% 5ml Bottle) 1 drop EACH EYE BID ON LICENSE OF [facility] Last Admin: 11/16/19 10:41 Dose: 1 drop Documented by: Carbidopa/Levodopa (Sinemet) 2 tablet PO TIDAC ON LICENSE OF [facility] Last Admin: 11/16/19 10:36 Dose: 2 tablet Documented by: Carvedilol (Coreg) 12.5 mg PO BID ON LICENSE OF [facility] Last Admin: 11/16/19 10:36 Dose: 12.5 mg Documented by: Clopidogrel Bisulfate (Plavix) 75 mg PO DAILY ON LICENSE OF [facility] Last Admin: 11/16/19 10:36 Dose: 75 mg Documented by: Dextrose (D50w Syringe) 0 gm IV X1 PRN; Protocol PRN Reason: Hypoglycemia Furosemide (Lasix) 40 mg IV DAILY ON LICENSE OF [facility] Last Admin: 11/16/19 10:41 Dose: 40 mg Documented by: Glucagon () 1 mg IM .X1 PRN PRN Reason: Hypoglycemia Heparin Sodium (Porcine) (Heparin Na) 0 unit IV UD PRN; Protocol PRN Reason: dose adjustment Heparin Sodium/Sodium Chloride () 25,000 unit in 250 mls @ 15 mls/hr IV .[id number] ON LICENSE OF [facility]; Protocol Last Titration: 11/16/19 08:00 Dose: 1,200 units/hr, 12 mls/hr Documented by: Piperacillin Sod/Tazobactam (Sod 3.375 gm/ Sodium Chloride) 50 mls @ 12.5 mls/hr IV Q12 ON LICENSE OF [facility] Last Admin: 11/16/19 10:41 Dose: 12.5 mls/hr Documented by: Sodium Chloride () 250 mls @ 15 mls/hr IV .[id number] PRN PRN Reason: Saline Flush Sodium Chloride () 250 mls @ 15 mls/hr IV .[id number] PRN PRN Reason: Additional IVPB Infusion Pantoprazole Sodium 40 mg/ (Sodium Chloride) 110 mls @ 330 mls/hr IV Q24@2200 [facility] Last Infusion: 11/15/19 22:01 Dose: Infused Documented by: Insulin Human Lispro (Humalog Kwikpen (Bkc)) 0 unit SC Q6 [facility]; Protocol Last Admin: 11/16/19 06:31 Dose: Not Given Documented by: Ondansetron HCl (Zofran) 4 mg IV Q8H PRN PRN PRN Reason: NAUSEA/VOMITING Sodium Chloride () 10 - 40 ml IV UD PRN PRN Reason: SALINE FLUSH Last Admin: 11/15/19 04:48 Dose: 10 ml Documented by: STROKE Vital Signs/Narrative: Vital Signs Pulse Resp BP Pulse Ox 11/16/19 07:44 18 91 11/16/19 07:10 91 11/16/19 07:00 92 23 H 129/72 H 97 Medical Necessity - Tobacco Use Smoking Status: Former smoker Assessment/Plan All Active Problems Weakness (Acute) Dysuria (Acute) CHIKA (acute kidney injury) (Acute) Heart failure (Acute) NSTEMI (non-ST elevated myocardial infarction) (Acute) 1. acute hypoxic and hypercapnic respiratory failure 2/2 Pneumonia, CHF extubated 11/15 2. severe sepsis lactic acidosis resolved 2/2 pneumonia follow up cultures 3. NSTEMI troponins peaked at 76.3 on heparin gtt and metoprolol cardiology on consult echo done: EF 45%, akinetic apex. PASP 50-55mmHg 4. acute HFrEF EF 45% follow up echo daily furosemide 5. CHIKA on CKD III baseline around 1.88. monitor nephrology on consultation 6. Pneumonia urinary antigens for legionella and strep on pip/tazo pulm toilet 7. rhabdomyolysis monitor 8. DM2 SSI 9. Debility SNF on DC 10. Parkinson's disease complicates overall recovery as would expect once medically ready for discharge, he will require SNF. anticipate difficulty with swallowing post-extubation given known dysphagia. Speech therapy post extubation 11. VTE prophylaxis: anticoagulated. Inpatient E&M: [id number] [facility] L2
[2019-11-16 12:21] LABS: Bedside Glucose 118 mg/dL (70-110)
--- NOTE | 2019-11-16 13:00 | PN.CARD_ITS ---
Subjectve: Patient has been extubated. He feels much better than when he presented to the hospital. He denies any chest pain. Objective: Vital Signs Temp Pulse Resp BP Pulse Ox 97.8 F 92 18 129/72 H 91 11/16/19 04:00 11/16/19 07:00 11/16/19 07:44 11/16/19 07:00 11/16/19 07:44 Oxygen Flow Rate (L/min) 3 Oxygen Delivery Method Nasal Cannula Weight: 238 lb 1.588 oz Body Mass Index (BMI) 44.6 Intake and Output for Last 24 Hours 11/14/19 11/15/19 11/16/19 23:59 23:59 23:59 Intake Total 101.305 / 504.592 7695.71 / 1497.61 407.61 / 407.61 Output Total 2475 / 2675 1325 / 1325 Balance 101.305 / -196.495 -992.29 / -1177.39 -917.39 / -917.39 General: Awake, Alert, Oriented x 3 HEENT: Atraumatic Oral: Moist Mucosa Neck: Supple Cardiovascular: Regular Rhythm Abdomen: Soft Extremities: Bilateral Edema +1 Skin: No Rashes Psych/Mental Status: Appropriate 11/15/19 14:00: APTT 64.5 H 11/15/19 20:20: APTT 65.0 H 11/16/19 04:15: WBC 12.5 H, RBC 3.52 L, Hgb 10.8 L, Hct 34.3 L, MCV 97.4 H, MCH 30.7, MCHC 31.5 L, Plt Count 149 L, MPV 12.2 H, Immature Gran % (Auto) 0.900, Neut % (Auto) 85.6 H, Lymph % (Auto) 7.4 L, [place] % (Auto) 5.6, Eos % (Auto) 0.2, Baso % (Auto) 0.3, Absolute Neuts (auto) 10.7 H, Nucleated RBC % 0 11/16/19 04:15: APTT 58.2 H 11/16/19 04:15: Sodium 141, Potassium 3.5, Chloride 107, Carbon Dioxide 27.0, Anion Gap 7, BUN 51 H, Creatinine 2.93 H, Est GFR (MDRD) Af Amer 27 L, Est GFR (MDRD) Non-Af 22 L, BUN/Creatinine Ratio 17.4, Glucose 117 H, Calcium 8.2 L, Total Bilirubin 0.90 11/16/19 06:34: pH 7.44, Bicarbonate Actual 24.4, Base Excess 0, O2 Saturation 94 L, ABG pCO2 36.1, ABG pO2 66 L, Jairo Test Positive Rhythm: EKG: ECHO: Stress Test: Cardiac Cath: PCI: CT Surgery: Holter monitor: EPS: PPM: CXR: Chest CT Scan: Medical Necessity - Tobacco Use Smoking Status: Former smoker Assessment/Plan 1. Elevated troponin: Patient appears to have had a non-STEMI. He has Q waves in the anterior leads which are new compared to an EKG in 2018. He has underlying right bundle branch block. His troponin appears to have peaked at around 76. His echo was reviewed and reveals an EF of 45% with apical akinesis. Patient has acute on chronic renal insufficiency. He is hemodynamically stable at this time. He did have 1 run of nonsustained V. tach that was about 20 beats. Since then he has remained electrically stable as well. Discussed the option of proceeding with coronary angiography right away or waiting to see if the creatinine gets better with the patient's and Dr. Son. I feel that at this point it will be better to wait and see if the creatinine gets better before proceeding with coronary angiography. Patient's infarct may have already been completed and appears that he has presented late. Continue IV heparin at this time. We can discontinue amlodipine to allow for further increase in beta- melissa dose as well as adding hydralazine and nitrate if patient is able to tolerate. Continue IV Lasix. 11/16/2019: Patient's creatinine is 2.9 today. He does appear to be volume overloaded. We will continue the IV Lasix. He will likely need coronary angiography later this admission. We will try to optimize his kidney function as much as we can prior to this procedure. 2. Nonsustained ventricular tachycardia: In the setting of AK. Patient already has AICD. We will adjust the beta-melissa dose as tolerated as well. No further episodes. 3. CHF: Continue IV Lasix. EF was 45% with apical akinesis. 4. Atrial fibrillation: Patient has history of A. fib ablation. Will monitor. No history of recurrence since ablation 5. Status post AICD: This was done in 2003 with recent generator change. Will monitor.
[2019-11-16 17:35] LABS: Bedside Glucose 114 mg/dL (70-110)
[2019-11-16] MEDS: Atorvastatin Calcium 40 MG Tablet PO (21:51)
[2019-11-16 23:41] LABS: Bedside Glucose 101 mg/dL (70-110)
[2019-11-17] VITALS (29 sets, daily range): BP systolic 118–162; BP diastolic 55–87; PULSE 79–94; RESP 12–32; TEMP 36.6–37.4; O2SAT 89–98
[2019-11-17 05:22] LABS: Anion Gap 7 (5-15); BUN 52 mg/dL (7-18); BUN/Creat Ratio 20.7 RATIO (10-20); Calcium,Total 8.9 mg/dL (8.5-10.1); Chloride 109 mmol/L (98-107); Creatinine, Serum 2.51 mg/dL (0.70-1.30); EST Glomerular Filtration Rate 27 mL/min (>60); Est Glom Filt Rate - Afr Amer 32 mL/min (>60); Estimated Creatinine Clearance 19.34 ml/min; Glucose 110 mg/dL (74-106); Potassium 3.6 mmol/L (3.5-5.1); Sodium Level 143 mmol/L (136-145)
[2019-11-17 05:27] LABS: Absolute Lymphocyte Count 1.01 X10^3/uL (0.83-4.51); Absolute Neutrophil Count 8.6 X10^3/uL (2.0-7.7); Basophil# 0.03 X10^3/uL; Basophil% 0.3 % (0-1); Eosinophil# 0.01 X10^3/uL; Eosinophils% 0.1 % (0-5); Hematocrit 36.1 % (40-54); Hemoglobin 11.3 g/dL (13.0-16.5); Lymphocyte # 1.01 X10^3/ul (4.0); Lymphocyte % 9.7 % (19-41); Mean Corp Hgb Conc 31.3 g/dL (32-36); Mean Corpuscular Hgb 30.4 pg (27.0-32.0); Mean Platelet Vol. 12.3 fl (6.2-12.0); Monocyte% 6.7 % (0-10); NRBC Flagged by Analyzer 0 % (0-5); Neutrophil # 8.59 X10^3/uL (2.7-7.7); Neutrophil % 82.2 % (47-70); Partial Thromboplast Time 52.2 Seconds (24.1-36.2); Platelet Count 170 K/mm3 (150-450); RBC Distribution Width CV 14.9 % (11.6-14.6); RBC Distribution Width SD 52.3 fl (35.1-43.9); Red Blood Count 3.72 M/mm3 (4.6-6.2); White Blood Count 10.4 K/mm3 (4.4-11.0)
[2019-11-17 05:30] LABS: Bedside Glucose 126 mg/dL (70-110)
[2019-11-17] MEDS: Heparin Injection (Vial) 5,000 UNIT/ML VIAL IV ×3 (05:41→19:56)
--- NOTE | 2019-11-17 06:28 | PCM.PN.INT ---
Subjective: Patient did well overnight. Nursing is reporting patient has had increased FiO2 requirements following p.o. intake. Patient complains of dry mouth and then sucks on the swab. Patient denies any chest pain at this time. No nausea or vomiting is been reported. General: Alert, Oriented x3, Cooperative, No apparent distress, Well developed, Well nourished, - - Morbidly obese. No conversational dyspnea. HEENT: Atraumatic, PERRLA, EOMI, Normocephalic, - - No scleral icterus or injection noted Oral: No Gingival or Mucosal Lesions/ Ulcerations, Dry Mucosa, - - Crowded posterior pharynx Neck: Supple, No Nodes, Trachea Midline Lungs: No wheeze, Diminished, Rales - Right base, - - Symmetric expansion. Cardiovascular: Regular rate, Regular Rhythm, Normal S1, Normal S2, No murmurs, No rub noted, No Gallop Abdomen: Bowel Sounds Present, Soft, Non Tender, Non-Distended, Obese Extremities: No clubbing, No cyanosis, Edema - Improving Skin: - - No change from previous Musculoskeletal: No Tenderness to Palpation of Joints or Extremities Lymphatic: No Cervical, Supraclavicular, or Inguinal Adenopathy Neurological: Cranial nerves II-XII grossly intact, Neuro grossly intact, Motor Exam 5/5 strength throughout Psych/Mental Status: Alert and oriented to time, place, person, mood and affect Vital Signs Temp Pulse Resp BP Pulse Ox 36.6 C 85 28 H 134/70 H 91 11/17/19 05:00 11/17/19 06:00 11/17/19 06:00 11/17/19 06:00 11/17/19 06:00 Oxygen Flow Rate (L/min) 4 Oxygen Delivery Method Nasal Cannula Weight: 106.8 kg Body Mass Index (BMI) 44.6 Intake and Output for Last 24 Hours 11/15/19 11/16/19 11/17/19 23:59 23:59 23:59 Intake Total 1482.71 / 1497.61 807.21 / 807.21 190.6 / 190.6 Output Total 2475 / 2675 2850 / 2850 375 / 375 Balance -992.29 / -1177.39 -2042.79 / -2042.79 -184.4 / -184.4 Labs (Last 48 Hours) 11/15/19 11/15/19 11/15/19 05:30 12:13 14:00 WBC RBC Hgb Hct MCV MCH MCHC RDW Std Deviation RDW Coeff of Sammi Plt Count MPV Immature Gran % (Auto) Neut % (Auto) Lymph % (Auto) [place] % (Auto) Eos % (Auto) Baso % (Auto) Absolute Neuts (auto) Absolute Lymphs (auto) Nucleated RBC % APTT 64.5 H Specimen Type Sample Site pH Bicarbonate Actual Total CO2 Base Excess O2 Saturation O2 % ABG pCO2 ABG pO2 Jairo Test O2 Delivery Device Vent Mode Sodium Potassium Chloride Carbon Dioxide Anion Gap BUN Creatinine Estim Creat Clear Calc Est GFR (MDRD) Af Amer Est GFR (MDRD) Non-Af BUN/Creatinine Ratio Glucose Calcium Total Bilirubin AST ALT Alkaline Phosphatase Troponin I 70.800 H* Total Protein Albumin Globulin Albumin/Globulin Ratio Random Vancomycin POC Glucose 123 H 11/15/19 11/15/19 11/16/19 17:10 20:20 00:21 WBC RBC Hgb Hct MCV MCH MCHC RDW Std Deviation RDW Coeff of Sammi Plt Count MPV Immature Gran % (Auto) Neut % (Auto) Lymph % (Auto) [place] % (Auto) Eos % (Auto) Baso % (Auto) Absolute Neuts (auto) Absolute Lymphs (auto) Nucleated RBC % APTT 65.0 H Specimen Type Sample Site pH Bicarbonate Actual Total CO2 Base Excess O2 Saturation O2 % ABG pCO2 ABG pO2 Jairo Test O2 Delivery Device Vent Mode Sodium Potassium Chloride Carbon Dioxide Anion Gap BUN Creatinine Estim Creat Clear Calc Est GFR (MDRD) Af Amer Est GFR (MDRD) Non-Af BUN/Creatinine Ratio Glucose Calcium Total Bilirubin AST ALT Alkaline Phosphatase Troponin I Total Protein Albumin Globulin Albumin/Globulin Ratio Random Vancomycin POC Glucose 92 115 H 11/16/19 11/16/19 11/16/19 04:15 04:15 04:15 WBC 12.5 H RBC 3.52 L Hgb 10.8 L Hct 34.3 L MCV 97.4 H MCH 30.7 MCHC 31.5 L RDW Std Deviation 53.5 H RDW Coeff of Sammi 15.0 H Plt Count 149 L MPV 12.2 H Immature Gran % (Auto) 0.900 Neut % (Auto) 85.6 H Lymph % (Auto) 7.4 L [place] % (Auto) 5.6 Eos % (Auto) 0.2 Baso % (Auto) 0.3 Absolute Neuts (auto) 10.7 H Absolute Lymphs (auto) 0.92 Nucleated RBC % 0 APTT 58.2 H Specimen Type Sample Site pH Bicarbonate Actual Total CO2 Base Excess O2 Saturation O2 % ABG pCO2 ABG pO2 Jairo Test O2 Delivery Device Vent Mode Sodium Potassium Chloride Carbon Dioxide Anion Gap BUN Creatinine Estim Creat Clear Calc Est GFR (MDRD) Af Amer Est GFR (MDRD) Non-Af BUN/Creatinine Ratio Glucose Calcium Total Bilirubin AST ALT Alkaline Phosphatase Troponin I Total Protein Albumin Globulin Albumin/Globulin Ratio Random Vancomycin 9.1 POC Glucose 11/16/19 11/16/19 11/16/19 04:15 06:26 06:34 WBC RBC Hgb Hct MCV MCH MCHC RDW Std Deviation RDW Coeff of Sammi Plt Count MPV Immature Gran % (Auto) Neut % (Auto) Lymph % (Auto) [place] % (Auto) Eos % (Auto) Baso % (Auto) Absolute Neuts (auto) Absolute Lymphs (auto) Nucleated RBC % APTT Specimen Type ART Sample Site L Radial pH 7.44 Bicarbonate Actual 24.4 Total CO2 26 Base Excess 0 O2 Saturation 94 L O2 % 40 ABG pCO2 36.1 ABG pO2 66 L Jairo Test Positive O2 Delivery Device Adult Vent Vent Mode CPAP/PS Sodium 141 Potassium 3.5 Chloride 107 Carbon Dioxide 27.0 Anion Gap 7 BUN 51 H Creatinine 2.93 H Estim Creat Clear Calc 16.56 Est GFR (MDRD) Af Amer 27 L Est GFR (MDRD) Non-Af 22 L BUN/Creatinine Ratio 17.4 Glucose 117 H Calcium 8.2 L Total Bilirubin 0.90 AST 184 H ALT 16 Alkaline Phosphatase 73 Troponin I Total Protein 6.1 L Albumin 2.4 L Globulin 3.7 Albumin/Globulin Ratio 0.6 L Random Vancomycin POC Glucose 119 H 11/16/19 11/16/19 11/16/19 12:09 17:27 23:35 WBC RBC Hgb Hct MCV MCH MCHC RDW Std Deviation RDW Coeff of Sammi Plt Count MPV Immature Gran % (Auto) Neut % (Auto) Lymph % (Auto) [place] % (Auto) Eos % (Auto) Baso % (Auto) Absolute Neuts (auto) Absolute Lymphs (auto) Nucleated RBC % APTT Specimen Type Sample Site pH Bicarbonate Actual Total CO2 Base Excess O2 Saturation O2 % ABG pCO2 ABG pO2 Jairo Test O2 Delivery Device Vent Mode Sodium Potassium Chloride Carbon Dioxide Anion Gap BUN Creatinine Estim Creat Clear Calc Est GFR (MDRD) Af Amer Est GFR (MDRD) Non-Af BUN/Creatinine Ratio Glucose Calcium Total Bilirubin AST ALT Alkaline Phosphatase Troponin I Total Protein Albumin Globulin Albumin/Globulin Ratio Random Vancomycin POC Glucose 118 H 114 H 101 11/17/19 11/17/19 11/17/19 04:50 04:50 04:50 WBC 10.4 RBC 3.72 L Hgb 11.3 L Hct 36.1 L MCV 97.0 H MCH 30.4 MCHC 31.3 L RDW Std Deviation 52.3 H RDW Coeff of Sammi 14.9 H Plt Count 170 MPV 12.3 H Immature Gran % (Auto) 1.000 H Neut % (Auto) 82.2 H Lymph % (Auto) 9.7 L [place] % (Auto) 6.7 Eos % (Auto) 0.1 Baso % (Auto) 0.3 Absolute Neuts (auto) 8.6 H Absolute Lymphs (auto) 1.01 Nucleated RBC % 0 APTT 52.2 H Specimen Type Sample Site pH Bicarbonate Actual Total CO2 Base Excess O2 Saturation O2 % ABG pCO2 ABG pO2 Jairo Test O2 Delivery Device Vent Mode Sodium 143 Potassium 3.6 Chloride 109 H Carbon Dioxide 27.0 Anion Gap 7 BUN 52 H Creatinine 2.51 H Estim Creat Clear Calc 19.34 Est GFR (MDRD) Af Amer 32 L Est GFR (MDRD) Non-Af 27 L BUN/Creatinine Ratio 20.7 H Glucose 110 H Calcium 8.9 Total Bilirubin AST ALT Alkaline Phosphatase Troponin I Total Protein Albumin Globulin Albumin/Globulin Ratio Random Vancomycin POC Glucose 11/17/19 05:27 WBC RBC Hgb Hct MCV MCH MCHC RDW Std Deviation RDW Coeff of Sammi Plt Count MPV Immature Gran % (Auto) Neut % (Auto) Lymph % (Auto) [place] % (Auto) Eos % (Auto) Baso % (Auto) Absolute Neuts (auto) Absolute Lymphs (auto) Nucleated RBC % APTT Specimen Type Sample Site pH Bicarbonate Actual Total CO2 Base Excess O2 Saturation O2 % ABG pCO2 ABG pO2 Jairo Test O2 Delivery Device Vent Mode Sodium Potassium Chloride Carbon Dioxide Anion Gap BUN Creatinine Estim Creat Clear Calc Est GFR (MDRD) Af Amer Est GFR (MDRD) Non-Af BUN/Creatinine Ratio Glucose Calcium Total Bilirubin AST ALT Alkaline Phosphatase Troponin I Total Protein Albumin Globulin Albumin/Globulin Ratio Random Vancomycin POC Glucose 126 H Microbiology 11/15/19 00:00 Sputum, Induced/Lukens Gram Stain - Final 11/15/19 00:00 Sputum, Induced/Lukens Respiratory Culture - Preliminary Appears to be normal respiratory isidra. Further studies to follow. 11/14/19 20:00 Urine Catheter - Catheter Urine Culture - Final Presumptive E. coli Medical Necessity - Tobacco Use Smoking Status: Former smoker Assessment/Plan All Active Problems Weakness (Acute) Dysuria (Acute) CHIKA (acute kidney injury) (Acute) Heart failure (Acute) NSTEMI (non-ST elevated myocardial infarction) (Acute) RECOMMENDATIONS: 1. Consider empiric BiPAP therapy 2. Okay to continue diuresis for now 3. Defer to cardiology on timing of cardiac catheterization 4. Complete 5 days of empiric antibiotics as patient appears to be actively aspirating 5. Increase activity as tolerated 6. Okay to leave the intensive care unit from my perspective IMPRESSIONS: 1. Acute combined respiratory failure secondary to probable non-ST elevation SD Patient with bilateral infiltrates. This may be secondary to congestive heart failure as patient does have an elevated BNP, lower extremity edema and elevated troponins. Aspiration would also be a consideration. Normalization of patient's leukocytosis compared to yesterday. Clinical suspicion for pulmonary edema leading to the majority of hypoxic respiratory failure. Patient did respond well to Lasix therapy. Will keep lower dose Lasix and attempt to improve renal function for anticipated cardiac catheterization. Patient may require BiPAP with sleep as there is high suspicion for sleep disordered breathing with Parkinson's, obesity and CHF. There was some concern for possible tube leak, but this appeared to be positional and patient was successfully extubated with no reported stridor.. 2. Non-ST elevation SD with presumed congestive heart failure/nonsustained ventricular tachycardia Cardiology has been contacted. Patient is currently on a heparin drip and remains relatively hemodynamically stable. Patient has had some nonsustained V. tach noted on telemetry, but no interventions were required. We will continue to replace electrolytes aggressively and await cardiology recommendations. There is a reduction in EF to 45% with an akinetic apex. Cardiology is requesting medical optimization prior to any intervention. We will continue with heparin for now. 3. Acute kidney injury on chronic kidney disease stage III Clinical suspicion for prerenal etiology secondary to protracted non-ST elevation SD. Patient did have an elevated troponin on presentation indicating this likely occurred hours before. Patient has had some improvement over the course of the hospitalization, but is not back to his baseline of approximately 2. We will continue to monitor. Patient will likely require hydration around contrast infusion to minimize risk of contrast-induced nephropathy. 4. Possible severe sepsis secondary to UTI versus pneumonia Patient does have a leukocytosis and a history of aspiration silently. Patient's MRSA is negative from the nasal swab, so will proceed with Zosyn as empiric therapy. No fluid boluses given patient's appearance of total body fluid positive. 5. Diabetes mellitus type 2/Parkinson's disease/elevated liver enzymes/history of gout/advanced age/morbid obesity Complicates care, management, recovery and prognosis. We will continue to monitor blood sugars closely. Metformin will be held given renal dysfunction and probable need for contrast. Patient does not appear to have an acute gout flare at this time. Recommend continuing Parkinson's medications if possible as this will facilitate better transition off the ventilator. Inpatient E&M: [id number] [facility] L3
--- NOTE | 2019-11-17 07:11 | CON.PCM_ITS ---
Consultation - Renal 11/17/19 PCP/ Referring MD: Requesting physician: Dr. Brady Primary care physician: Dr. Aleksandr Decker MD Reason for Consultation:: CHIKA on CKD - History of Present Illness History of Present Illness: The patient is a 74 year old M with past history of T2DM, CAD s/p CABG, COPD, Parkinson's disease, HFrEF, gout and hyperlipidemia. The patient also has CKD stage G3b. The patient presented with a 1 day history of SOB, increasing edema despite oral diuretic, and weakness with difficulty mobilizing. He was subsequently diagnosed with acute respiratory failure thought to be due to HF and pneumonia. The patient was also diagnosed with NSTEMI and sepsis due to UTI and pneumonia. He did required mechanical ventilation temporarily. The patient denies CP, nausea, or diarrhea. The patient denies current SOB, and he has been extubated. Nephrology is asked to see the patient for CHIKA on CKD. He has prior SCr of around 1.9 mg/dL (04/09/19). The patient presented to the hospital on 11/14/19 w ith SCr of 3.03 mg/dL. SCr is 2.51 mg/dL today. The patient denies prior LUTS. There is no recent exposure to IV contrast or NSAID. BP has been stable in the past 24 hrs. - Allergies Allergies: Allergies No Known Allergies Allergy (Verified 04/09/19 13:14) - Current Medications Current Medications: Current Medications Acetaminophen (Tylenol Liquid) 650 mg GT Q6H PRN PRN PRN Reason: Pain Score 1-10/Temp > 100.7 F Albuterol Sulfate (Ventolin Aerosols) 2.5 mg INHALATION Q2H PRN PRN PRN Reason: sob/wheezing Allopurinol (Zyloprim) 100 mg PO DAILYCM [facility] Last Admin: 11/16/19 10:36 Dose: 100 mg Documented by: Aspirin (Aspirin, Baby) 81 mg PO DAILY@0800 [facility] Last Admin: 11/16/19 10:35 Dose: 81 mg Documented by: Atorvastatin Calcium (Lipitor) 40 mg PO QHS [facility] Last Admin: 11/16/19 21:51 Dose: 40 mg Documented by: Brimonidine Tartrate (Brimonidine 0.2% 5ml Bottle) 1 drop EACH EYE BID [facility] Last Admin: 11/16/19 21:51 Dose: Not Given Documented by: Carbidopa/Levodopa (Sinemet) 2 tablet PO TIDAC [facility] Last Admin: 11/16/19 16:19 Dose: 2 tablet Documented by: Carvedilol (Coreg) 12.5 mg PO BID [facility] Last Admin: 11/16/19 21:51 Dose: 12.5 mg Documented by: Clopidogrel Bisulfate (Plavix) 75 mg PO DAILY [facility] Last Admin: 11/16/19 10:36 Dose: 75 mg Documented by: Dextrose (D50w Syringe) 0 gm IV X1 PRN; Protocol PRN Reason: Hypoglycemia Furosemide (Lasix) 40 mg IV DAILY [facility] Last Admin: 11/16/19 10:41 Dose: 40 mg Documented by: Glucagon () 1 mg IM .X1 PRN PRN Reason: Hypoglycemia Heparin Sodium (Porcine) (Heparin Na) 0 unit IV UD PRN; Protocol PRN Reason: dose adjustment Last Admin: 11/17/19 05:41 Dose: 1,000 unit Documented by: Heparin Sodium/Sodium Chloride () 25,000 unit in 250 mls @ 15 mls/hr IV .[id number] [facility]; Protocol Last Titration: 11/17/19 05:43 Dose: 1,300 units/hr, 13 mls/hr Documented by: Piperacillin Sod/Tazobactam (Sod 3.375 gm/ Sodium Chloride) 50 mls @ 12.5 mls/hr IV Q12 [facility] Last Infusion: 11/17/19 03:33 Dose: Infused Documented by: Sodium Chloride () 250 mls @ 15 mls/hr IV .[id number] PRN PRN Reason: Saline Flush Sodium Chloride () 250 mls @ 15 mls/hr IV .[id number] PRN PRN Reason: Additional IVPB Infusion Pantoprazole Sodium 40 mg/ (Sodium Chloride) 110 mls @ 330 mls/hr IV Q24@2200 [facility] Last Infusion: 11/16/19 21:59 Dose: Infused Documented by: Insulin Human Lispro (Humalog Kwikpen (Bkc)) 0 unit SC Q6 [facility]; Protocol Last Admin: 11/17/19 05:55 Dose: Not Given Documented by: Ondansetron HCl (Zofran) 4 mg IV Q8H PRN PRN PRN Reason: NAUSEA/VOMITING Sodium Chloride () 10 - 40 ml IV UD PRN PRN Reason: SALINE FLUSH Last Admin: 11/16/19 10:51 Dose: 10 ml Documented by: - Past Medical History Past Medical History (Chronic Problems): Chronic Problems CKD (chronic kidney disease) (Chronic) Parkinson disease (Chronic) Diabetes (Chronic) - Past Surgical History Surgical History: - - CABG, ablation for Afib - Social History Smoking Status: Former smoker - Family History Maternal History Items: Heart Disease, Hypertension Paternal History Items: - - History was taken from patient's daughter who is unsure of paternal medical history. She thinks that patient's father had colon cancer. Review of Systems Constitutional: Reports: Malaise, Weakness. Denies: Anorexia, Fever Eyes: Denies: Blurred vision, Double vision, Pain, Redness, Vision Change HEENT: Denies: Head Aches, Sinus Congestion, Sinus Drainage Cardiovascular: Reports: Edema. Denies: Chest Pain, Palpitations Respiratory: Reports: Shortness of Breath, Shortness of breath upon exertion, Wheezing. Denies: Cough, Sputum production Gastrointestinal: Denies: Abdominal Pain, Diarrhea, Hematochezia, Nausea, Vomiting Genitourinary: Denies: Dysuria, Hesitancy, Incontinence, Urgency Musculoskeletal: Denies: Joint Pain, Joint Tenderness Skin: Denies: Rash, Wounds Neurological: Reports: - - Generalized weakness. Denies: Numbness, Tingling Psychiatric: Denies: Anxiety, Depression, Homicidal Ideations, Suicidal Ideations Hematologic/ Lymphatic: Denies: Easy Bruising, Easy Bleeding Patient Problems: Active and Suspected Problems CHIKA (acute kidney injury) (Acute) Heart failure (Acute) NSTEMI (non-ST elevated myocardial infarction) (Acute) - Physical Exam Vitals/I&O's: Vital Signs Temp Pulse Resp BP Pulse Ox 97.9 F 85 28 H 134/70 H 91 11/17/19 05:00 11/17/19 06:00 11/17/19 06:00 11/17/19 06:00 11/17/19 06:00 Oxygen Flow Rate (L/min) 4 Oxygen Delivery Method Nasal Cannula Weight: 106.8 kg Body Mass Index (BMI) 44.6 Intake and Output for Last 24 Hours 11/15/19 11/16/19 11/17/19 23:59 23:59 23:59 Intake Total 1482.71 / 1497.61 807.21 / 807.21 190.6 / 190.6 Output Total 2475 / 2675 2850 / 2850 375 / 375 Balance -992.29 / -1177.39 -2042.79 / -2042.79 -184.4 / -184.4 General: Alert, Oriented x3 HEENT: Atraumatic, PERRLA, EOMI Oral: Moist Mucosa Neck: Supple Lungs: Diminished - at bases, Wheezes Cardiovascular: Normal S1, Normal S2, No murmurs Abdomen: Bowel Sounds Present, Soft, Non Tender, Obese Extremities: No clubbing, No cyanosis, Edema - 1+ LE Skin: No rashes Musculoskeletal: No Tenderness to Palpation of Joints or Extremities Neurological: Cranial nerves II-XII grossly intact, Neuro grossly intact Psych/Mental Status: Normal Affect, Appropriate Microbiology Past 72 Hours 11/15/19 00:00 Sputum, Induced/Lukens Gram Stain - Final 11/15/19 00:00 Sputum, Induced/Lukens Respiratory Culture - Preliminary Appears to be normal respiratory isidra. Further studies to follow. 11/14/19 20:00 Urine Catheter - Catheter Urine Culture - Final Presumptive E. coli 11/14/19 20:00 Urine Catheter - Barker Legionella Antigen - Final 11/14/19 20:00 Urine Catheter - Barker Streptococcus pneumoniae Antigen (M - Final Laboratory Results 11/16/19 12:09: POC Glucose 118 H 11/16/19 17:27: POC Glucose 114 H 11/16/19 23:35: POC Glucose 101 11/17/19 04:50: WBC 10.4, RBC 3.72 L, Hgb 11.3 L, Hct 36.1 L, MCV 97.0 H, MCH 30.4, MCHC 31.3 L, RDW Std Deviation 52.3 H, RDW Coeff of Sammi 14.9 H, Plt Count 170, MPV 12.3 H, Immature Gran % (Auto) 1.000 H, Neut % (Auto) 82.2 H, Lymph % (Auto) 9.7 L, [place] % (Auto) 6.7, Eos % (Auto) 0.1, Baso % (Auto) 0.3, Absolute Neuts (auto) 8.6 H, Absolute Lymphs (auto) 1.01, Nucleated RBC % 0 11/17/19 04:50: APTT 52.2 H 11/17/19 04:50: Sodium 143, Potassium 3.6, Chloride 109 H, Carbon Dioxide 27.0, Anion Gap 7, BUN 52 H, Creatinine 2.51 H, Estim Creat Clear Calc 19.34, Est GFR (MDRD) Af Amer 32 L, Est GFR (MDRD) Non-Af 27 L, BUN/Creatinine Ratio 20.7 H, Glucose 110 H, Calcium 8.9 11/17/19 05:27: POC Glucose 126 H Current Medications Acetaminophen (Tylenol Liquid) 650 mg GT Q6H PRN PRN PRN Reason: Pain Score 1-10/Temp > 100.7 F Albuterol Sulfate (Ventolin Aerosols) 2.5 mg INHALATION Q2H PRN PRN PRN Reason: sob/wheezing Allopurinol (Zyloprim) 100 mg PO DAILYCM [facility] Last Admin: 11/16/19 10:36 Dose: 100 mg Documented by: Aspirin (Aspirin, Baby) 81 mg PO DAILY@0800 [facility] Last Admin: 11/16/19 10:35 Dose: 81 mg Documented by: Atorvastatin Calcium (Lipitor) 40 mg PO QHS [facility] Last Admin: 11/16/19 21:51 Dose: 40 mg Documented by: Brimonidine Tartrate (Brimonidine 0.2% 5ml Bottle) 1 drop EACH EYE BID [facility] Last Admin: 11/16/19 21:51 Dose: Not Given Documented by: Carbidopa/Levodopa (Sinemet) 2 tablet PO TIDAC [facility] Last Admin: 11/16/19 16:19 Dose: 2 tablet Documented by: Carvedilol (Coreg) 12.5 mg PO BID [facility] Last Admin: 11/16/19 21:51 Dose: 12.5 mg Documented by: Clopidogrel Bisulfate (Plavix) 75 mg PO DAILY [facility] Last Admin: 11/16/19 10:36 Dose: 75 mg Documented by: Dextrose (D50w Syringe) 0 gm IV X1 PRN; Protocol PRN Reason: Hypoglycemia Furosemide (Lasix) 40 mg IV DAILY [facility] Last Admin: 11/16/19 10:41 Dose: 40 mg Documented by: Glucagon () 1 mg IM .X1 PRN PRN Reason: Hypoglycemia Heparin Sodium (Porcine) (Heparin Na) 0 unit IV UD PRN; Protocol PRN Reason: dose adjustment Last Admin: 11/17/19 05:41 Dose: 1,000 unit Documented by: Heparin Sodium/Sodium Chloride () 25,000 unit in 250 mls @ 15 mls/hr IV .[id number] [facility]; Protocol Last Titration: 11/17/19 05:43 Dose: 1,300 units/hr, 13 mls/hr Documented by: Piperacillin Sod/Tazobactam (Sod 3.375 gm/ Sodium Chloride) 50 mls @ 12.5 mls/hr IV Q12 [facility] Last Infusion: 11/17/19 03:33 Dose: Infused Documented by: Sodium Chloride () 250 mls @ 15 mls/hr IV .[id number] PRN PRN Reason: Saline Flush Sodium Chloride () 250 mls @ 15 mls/hr IV .[id number] PRN PRN Reason: Additional IVPB Infusion Pantoprazole Sodium 40 mg/ (Sodium Chloride) 110 mls @ 330 mls/hr IV Q24@2200 [facility] Last Infusion: 11/16/19 21:59 Dose: Infused Documented by: Insulin Human Lispro (Humalog Kwikpen (Bkc)) 0 unit SC Q6 [facility]; Protocol Last Admin: 11/17/19 05:55 Dose: Not Given Documented by: Ondansetron HCl (Zofran) 4 mg IV Q8H PRN PRN PRN Reason: NAUSEA/VOMITING Sodium Chloride () 10 - 40 ml IV UD PRN PRN Reason: SALINE FLUSH Last Admin: 11/16/19 10:51 Dose: 10 ml Documented by: Assessment/Plan All Active Problems Weakness (Acute) Dysuria (Acute) CHIKA (acute kidney injury) (Acute) Heart failure (Acute) NSTEMI (non-ST elevated myocardial infarction) (Acute) 1. 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 Baseline SCr had been around 1.9 mg/dL. CKD is likely due to diabetic nephropathy. CHIKA is likely due to prerenal CHIKA -> ischemic ATN from sepsis and heart failure (cardiorenal syndrome). I have low suspicion for other causes of CHIKA at this time. Renal function is improved without oliguria today although SCr remains above usual baseline. Agree with current treatment with diuresis. Will check renal US. Low suspicion for obstruction, but the patient has not been worked up for CKD in the past. Would be good to see what the kidney sizes are. There is no need for kidney replacement therapy. Current medications are reviewed. All medications are appropriately dosed for his current CrCl. Recheck renal function tomorrow. 2. Severe sepsis. Due to UTI and pneumonia. Clinically improved. Hemodynamically stable. Patient is on Zosyn. Management as per coroner transport technician. 3. Acute hypoxic respiratory failure. Due to HFrEF, COPD and pneumonia. Will watch renal function while he is being diuresed. Pt is now off ventilator. Pulmonary management as per Dr. Delgado. 4. HFrEF. Pt has NSTEMI. Patient is on beta melissa. Holding off on ANAMARIA melissa (ACEI/ARB) because of CHIKA. Continue diuresis. Will watch renal function.
--- NOTE | 2019-11-17 07:36 | US_ITS ---
STUDY: RENAL ULTRASOUND - COMPLETE REASON FOR EXAM: Male, 74 years old. Acute kidney injury on chronic kidney failure TECHNIQUE: Ultrasound evaluation of the kidneys was performed with real-time and static sanders-scale imaging. COMPARISON: None. FINDINGS: RIGHT KIDNEY: Normal location of the right kidney, which is normal in size. The right kidney measures 10.7 x 5.2 x 4.4 cm. There is a normal cortex of the right kidney. The renal cortex measures 1.2 cm. 2 renal cysts are seen measuring as much as 3.4 cm. There are no right renal calculi. There is no right hydronephrosis. DISTAL RIGHT URETER: There is non-visualization of the distal right ureter. There is no demonstrated right ureterovesical junction calculus. There is no demonstrated right ureteral jet. LEFT KIDNEY: Normal location of the left kidney, which is normal in size. The left kidney measures 11.2 x 4.4 x 5.3 cm. There is a normal cortex of the left kidney. The renal cortex measures 1.7 cm. There is a 4.7 cm cyst. There is a 4 mm probable nonobstructing stone. There is no left hydronephrosis. DISTAL LEFT URETER: There is non-visualization of the distal left ureter. There is no demonstrated left ureterovesical junction calculus. There is no demonstrated left ureteral jet. BLADDER: The distended urinary bladder has a volume of 57 ml. The empty urinary bladder has a volume of 5 ml. There is a normal wall thickness of the distended urinary bladder. There is no demonstrated mass within the urinary bladder. There are no demonstrated bladder calculi. US/Kidney and Bladder IMPRESSION: No definite acute abnormalities. Bilateral renal cysts. Possible nonobstructing stone of the left kidney. Electronically Signed: Garrick Fong MD at 20:02 EDT , Service support ,
[2019-11-17] MEDS: BRIMONIDINE 0.2% 5ML BOTTLE 1 DRP EACH EYE ×2 (09:25→22:03)
[2019-11-17] MEDS: Furosemide 40 MG/4 ML Vial IV (09:25)
--- NOTE | 2019-11-17 10:21 | PCM.PN.HOSP ---
Patient Problems: Active and Suspected Problems CHIKA (acute kidney injury) (Acute) Heart failure (Acute) NSTEMI (non-ST elevated myocardial infarction) (Acute) Reason for Visit: severe sepsis Subjective: no new complaints. Vitals/I&O's: Vital Signs Temp Pulse Resp BP Pulse Ox 36.9 C 88 24 H 141/66 H 89 11/17/19 08:00 11/17/19 08:12 11/17/19 08:00 11/17/19 08:00 11/17/19 08:00 Oxygen Flow Rate (L/min) 4 Oxygen Delivery Method Nasal Cannula Weight: 106.8 kg Body Mass Index (BMI) 44.6 Intake and Output for Last 24 Hours 11/15/19 11/16/19 11/17/19 23:59 23:59 23:59 Intake Total 1482.71 / 1497.61 807.21 / 807.21 190.6 / 190.6 Output Total 2475 / 2675 2850 / 2850 625 / 625 Balance -992.29 / -1177.39 -2042.79 / -2042.79 -434.4 / -434.4 General: Alert, No apparent distress HEENT: Atraumatic, Normocephalic Neck: No Nodes, Thyroid Normal Size and Texture Lungs: Normal air movement, No rhonchi, No wheeze, - - coarse breath sounds Cardiovascular: Regular rate, Regular Rhythm, Normal S1, Normal S2 Abdomen: Bowel Sounds Present, Soft, Non Tender, Non-Distended Extremities: No edema, No Calf Tenderness Microbiology Past 72 Hours 11/15/19 00:00 Sputum, Induced/Lukens Gram Stain - Final 11/15/19 00:00 Sputum, Induced/Lukens Respiratory Culture - Preliminary Appears to be normal respiratory isidra. Further studies to follow. 11/14/19 20:00 Urine Catheter - Catheter Urine Culture - Final Presumptive E. coli 11/14/19 20:00 Urine Catheter - Barker Legionella Antigen - Final 11/14/19 20:00 Urine Catheter - Barker Streptococcus pneumoniae Antigen (M - Final Laboratory Results 11/16/19 12:09: POC Glucose 118 H 11/16/19 17:27: POC Glucose 114 H 11/16/19 23:35: POC Glucose 101 11/17/19 04:50: WBC 10.4, RBC 3.72 L, Hgb 11.3 L, Hct 36.1 L, MCV 97.0 H, MCH 30.4, MCHC 31.3 L, RDW Std Deviation 52.3 H, RDW Coeff of Sammi 14.9 H, Plt Count 170, MPV 12.3 H, Immature Gran % (Auto) 1.000 H, Neut % (Auto) 82.2 H, Lymph % (Auto) 9.7 L, [place] % (Auto) 6.7, Eos % (Auto) 0.1, Baso % (Auto) 0.3, Absolute Neuts (auto) 8.6 H, Absolute Lymphs (auto) 1.01, Nucleated RBC % 0 11/17/19 04:50: APTT 52.2 H 11/17/19 04:50: Sodium 143, Potassium 3.6, Chloride 109 H, Carbon Dioxide 27.0, Anion Gap 7, BUN 52 H, Creatinine 2.51 H, Estim Creat Clear Calc 19.34, Est GFR (MDRD) Af Amer 32 L, Est GFR (MDRD) Non-Af 27 L, BUN/Creatinine Ratio 20.7 H, Glucose 110 H, Calcium 8.9 11/17/19 05:27: POC Glucose 126 H Current Medications Acetaminophen (Tylenol Liquid) 650 mg GT Q6H PRN PRN PRN Reason: Pain Score 1-10/Temp > 100.7 F Albuterol Sulfate (Ventolin Aerosols) 2.5 mg INHALATION Q2H PRN PRN PRN Reason: sob/wheezing Allopurinol (Zyloprim) 100 mg PO DAILYCM [facility] Last Admin: 11/16/19 10:36 Dose: 100 mg Documented by: Aspirin (Aspirin, Baby) 81 mg PO DAILY@0800 [facility] Last Admin: 11/16/19 10:35 Dose: 81 mg Documented by: Atorvastatin Calcium (Lipitor) 40 mg PO QHS [facility] Last Admin: 11/16/19 21:51 Dose: 40 mg Documented by: Brimonidine Tartrate (Brimonidine 0.2% 5ml Bottle) 1 drop EACH EYE BID [facility] Last Admin: 11/17/19 09:25 Dose: 1 drop Documented by: Carbidopa/Levodopa (Sinemet) 2 tablet PO TIDAC [facility] Last Admin: 11/16/19 16:19 Dose: 2 tablet Documented by: Carvedilol (Coreg) 12.5 mg PO BID [facility] Last Admin: 11/16/19 21:51 Dose: 12.5 mg Documented by: Clopidogrel Bisulfate (Plavix) 75 mg PO DAILY [facility] Last Admin: 11/16/19 10:36 Dose: 75 mg Documented by: Dextrose (D50w Syringe) 0 gm IV X1 PRN; Protocol PRN Reason: Hypoglycemia Furosemide (Lasix) 40 mg IV DAILY [facility] Last Admin: 11/17/19 09:25 Dose: 40 mg Documented by: Glucagon () 1 mg IM .X1 PRN PRN Reason: Hypoglycemia Heparin Sodium (Porcine) (Heparin Na) 0 unit IV UD PRN; Protocol PRN Reason: dose adjustment Last Admin: 11/17/19 05:41 Dose: 1,000 unit Documented by: Heparin Sodium/Sodium Chloride () 25,000 unit in 250 mls @ 15 mls/hr IV .[id number] [facility]; Protocol Last Titration: 11/17/19 05:43 Dose: 1,300 units/hr, 13 mls/hr Documented by: Piperacillin Sod/Tazobactam (Sod 3.375 gm/ Sodium Chloride) 50 mls @ 12.5 mls/hr IV Q12 [facility] Last Admin: 11/17/19 09:51 Dose: 12.5 mls/hr Documented by: Sodium Chloride () 250 mls @ 15 mls/hr IV .[id number] PRN PRN Reason: Saline Flush Sodium Chloride () 250 mls @ 15 mls/hr IV .[id number] PRN PRN Reason: Additional IVPB Infusion Pantoprazole Sodium 40 mg/ (Sodium Chloride) 110 mls @ 330 mls/hr IV Q24@2200 [facility] Last Infusion: 11/16/19 21:59 Dose: Infused Documented by: Insulin Human Lispro (Humalog Kwikpen (Bkc)) 0 unit SC Q6 [facility]; Protocol Last Admin: 11/17/19 05:55 Dose: Not Given Documented by: Ondansetron HCl (Zofran) 4 mg IV Q8H PRN PRN PRN Reason: NAUSEA/VOMITING Sodium Chloride () 10 - 40 ml IV UD PRN PRN Reason: SALINE FLUSH Last Admin: 11/16/19 10:51 Dose: 10 ml Documented by: STROKE Vital Signs/Narrative: Vital Signs Temp Pulse Resp BP Pulse Ox 11/17/19 08:12 88 11/17/19 08:00 36.9 C 88 24 H 141/66 H 89 Medical Necessity - Tobacco Use Smoking Status: Former smoker Assessment/Plan All Active Problems Weakness (Acute) Dysuria (Acute) CHIKA (acute kidney injury) (Acute) Heart failure (Acute) NSTEMI (non-ST elevated myocardial infarction) (Acute) 1. acute hypoxic and hypercapnic respiratory failure 2/2 Pneumonia, CHF extubated 11/15 2. severe sepsis lactic acidosis resolved 2/2 pneumonia follow up cultures 3. NSTEMI troponins peaked at 76.3 on heparin gtt and metoprolol cardiology on consult echo done: EF 45%, akinetic apex. PASP 50-55mmHg 4. acute HFrEF EF 45% follow up echo daily furosemide 5. CHIKA on CKD III baseline around 1.88. monitor nephrology on consultation 6. Pneumonia urinary antigens for legionella and strep on pip/tazo pulm toilet 7. rhabdomyolysis monitor 8. DM2 SSI 9. Debility SNF on DC 10. Parkinson's disease complicates overall recovery as would expect once medically ready for discharge, he will require SNF. anticipate difficulty with swallowing post-extubation given known dysphagia. Speech therapy post extubation 11. dysphagia: failed swallow eval. ST following. 12. VTE prophylaxis: anticoagulated. Inpatient E&M: 22919 Subs Hosp L2
--- NOTE | 2019-11-17 11:25 | NURSING ---
pt sleeping and desating 89% on 6l with rr 32. dr. noonan texted and to start bipap as discussed in rounds this am to see if helps since home cpap not here.
[2019-11-17 11:26] LABS: Bedside Glucose 119 mg/dL (70-110)
[2019-11-17 11:47] LABS: Partial Thromboplast Time 43.7 Seconds (24.1-36.2)
--- NOTE | 2019-11-17 13:23 | NURSING ---
report called to [facility] with no quetions voiced. elodia called and updated on transfer.
--- NOTE | 2019-11-17 14:29 | PN.CARD_ITS ---
Subjectve: Patient denies any shortness of breath. He is on a BiPAP at this time. He is able to lie flat with the BiPAP on. Apparently prior to putting the BiPAP on he was having some difficulty lying down flat. His creatinine is coming down. Objective: Vital Signs Temp Pulse Resp BP Pulse Ox 98.2 F 91 23 H 152/84 H 95 11/17/19 14:05 11/17/19 14:05 11/17/19 14:13 11/17/19 14:05 11/17/19 14:05 Oxygen Flow Rate (L/min) 6 Oxygen Delivery Method Bi-pap Weight: 235 lb 7.259 oz Body Mass Index (BMI) 44.6 Intake and Output for Last 24 Hours 11/15/19 11/16/19 11/17/19 23:59 23:59 23:59 Intake Total 1482.71 / 1497.61 807.21 / 807.21 274.23 / 274.23 Output Total 2475 / 2675 2850 / 2850 1475 / 1475 Balance -992.29 / -1177.39 -2042.79 / -2042.79 -1200.77 / -1200.77 General: Awake, Alert, Oriented x 3 HEENT: Atraumatic Oral: Moist Mucosa Neck: Supple, Positive JVD Lungs: Clear to auscultation Cardiovascular: Regular Rhythm Abdomen: Soft Extremities: No edema Psych/Mental Status: Appropriate 11/17/19 04:50: WBC 10.4, RBC 3.72 L, Hgb 11.3 L, Hct 36.1 L, MCV 97.0 H, MCH 30.4, MCHC 31.3 L, Plt Count 170, MPV 12.3 H, Immature Gran % (Auto) 1.000 H, Neut % (Auto) 82.2 H, Lymph % (Auto) 9.7 L, [place] % (Auto) 6.7, Eos % (Auto) 0.1, Baso % (Auto) 0.3, Absolute Neuts (auto) 8.6 H, Nucleated RBC % 0 11/17/19 04:50: APTT 52.2 H 11/17/19 04:50: Sodium 143, Potassium 3.6, Chloride 109 H, Carbon Dioxide 27.0, Anion Gap 7, BUN 52 H, Creatinine 2.51 H, Est GFR (MDRD) Af Amer 32 L, Est GFR (MDRD) Non-Af 27 L, BUN/Creatinine Ratio 20.7 H, Glucose 110 H, Calcium 8.9 11/17/19 11:25: APTT 43.7 H Rhythm: EKG: ECHO: Stress Test: Cardiac Cath: PCI: CT Surgery: Holter monitor: EPS: PPM: CXR: Chest CT Scan: Medical Necessity - Tobacco Use Smoking Status: Former smoker Assessment/Plan 1. Elevated troponin: Patient appears to have had a non-STEMI. He has Q waves in the anterior leads which are new compared to an EKG in 2018. He has underlying right bundle branch block. His troponin appears to have peaked at around 76. His echo was reviewed and reveals an EF of 45% with apical akinesis. Patient has acute on chronic renal insufficiency. He is hemodynamically stable at this time. He did have 1 run of nonsustained V. tach that was about 20 beats. Since then he has remained electrically stable as well. Discussed the option of proceeding with coronary angiography right away or waiting to see if the creatinine gets better with the patient's and Dr. Son. I feel that at this point it will be better to wait and see if the creatinine gets better before proceeding with coronary angiography. Patient's infarct may have already been completed and appears that he has presented late. Continue IV heparin at this time. We can discontinue amlodipine to allow for further increase in beta- melissa dose as well as adding hydralazine and nitrate if patient is able to tolerate. Continue IV Lasix. 11/17/19: Patient continues to improve. His Lasix has been changed to daily. His lower extremity edema has resolved. He seems to have mild JVD. Agree with continuing IV Lasix at this time. We will check patient's creatinine in a.m. and if it is at a reasonable level and if okay with renal then we will consider coronary angiography. 2. Nonsustained ventricular tachycardia: In the setting of SD. Patient already has AICD. We will adjust the beta-melissa dose as tolerated as well. No further episodes. 3. CHF: Continue IV Lasix. EF was 45% with apical akinesis. 4. Atrial fibrillation: Patient has history of A. fib ablation. Will monitor. No history of recurrence since ablation 5. Status post AICD: This was done in 2003 with recent generator change. Will monitor.
[2019-11-17 17:05] LABS: Bedside Glucose 105 mg/dL (70-110)
[2019-11-17 19:38] LABS: Partial Thromboplast Time 45.7 Seconds (24.1-36.2)
[2019-11-18] VITALS (19 sets, daily range): BP systolic 129–151; BP diastolic 72–88; PULSE 74–112; RESP 12–33; TEMP 36.6–37.4; O2SAT 89–98
[2019-11-18 00:55] LABS: Bedside Glucose 129 mg/dL (70-110)
[2019-11-18 02:20] LABS: Absolute Lymphocyte Count 0.98 X10^3/uL (0.83-4.51); Absolute Neutrophil Count 8.6 X10^3/uL (2.0-7.7); Basophil# 0.05 X10^3/uL; Basophil% 0.5 % (0-1); Eosinophil# 0.01 X10^3/uL; Eosinophils% 0.1 % (0-5); Hematocrit 38.8 % (40-54); Hemoglobin 11.6 g/dL (13.0-16.5); Lymphocyte # 0.98 X10^3/ul (4.0); Lymphocyte % 9.3 % (19-41); Mean Corp Hgb Conc 29.9 g/dL (32-36); Mean Corpuscular Hgb 29.7 pg (27.0-32.0); Mean Corpuscular Volume 99.5 fL (80-94); Mean Platelet Vol. 11.8 fl (6.2-12.0); Monocyte# 0.84 X10^3/uL; Monocyte% 7.9 % (0-10); NRBC Flagged by Analyzer 0 % (0-5); Neutrophil % 81.2 % (47-70); Platelet Count 185 K/mm3 (150-450); RBC Distribution Width CV 14.9 % (11.6-14.6); White Blood Count 10.6 K/mm3 (4.4-11.0)
[2019-11-18 02:25] LABS: Partial Thromboplast Time 49.3 Seconds (24.1-36.2)
[2019-11-18 03:03] LABS: Albumin, Serum 2.5 g/dL (3.2-5.0); Anion Gap 8 (5-15); BUN 57 mg/dL (7-18); BUN/Creat Ratio 22.5 RATIO (10-20); Calcium,Total 9.1 mg/dL (8.5-10.1); Chloride 112 mmol/L (98-107); Creatinine, Serum 2.53 mg/dL (0.70-1.30); EST Glomerular Filtration Rate 26 mL/min (>60); Est Glom Filt Rate - Afr Amer 32 mL/min (>60); Estimated Creatinine Clearance 19.18 ml/min; Glucose 123 mg/dL (74-106); Phosphorus 3.7 mg/dL (2.5-4.9); Potassium 3.6 mmol/L (3.5-5.1); Sodium Level 146 mmol/L (136-145)
[2019-11-18] MEDS: Heparin Injection (Vial) 5,000 UNIT/ML VIAL IV (03:07)
[2019-11-18 05:10] LABS: Magnesium 2.8 mg/dL (1.6-2.6)
--- NOTE | 2019-11-18 05:55 | EKG12_ITS ---
Test Reason : AM EKG Blood Pressure : / mmHG Vent. Rate : 090 BPM Atrial Rate : 090 BPM P-R Int : 192 ms QRS Dur : 138 ms QT Int : 434 ms P-R-T Axes : 074 127 017 degrees QTc Int : 530 ms Normal sinus rhythm Right bundle branch block Left posterior fascicular block Bifascicular block Anteroseptal infarct , age undetermined Abnormal ECG Confirmed by SAMIRA BRAVO, TARAS ([id number]), managing editor THOMAS FLORES ([id number]) on 11/20/2019 10:18:22 AM Referred By: PO Confirmed By:TARAS HOGAN MD
[2019-11-18] MEDS: Potassium Chloride 10mEq/100mL 10 MEQ/100 ML IV.SOLN. 100 MEQ IV BOLUS ×2 (06:04→08:00)
[2019-11-18 06:21] LABS: Bedside Glucose 125 mg/dL (70-110)
[2019-11-18 09:21] LABS: Partial Thromboplast Time 45.1 Seconds (24.1-36.2)
--- NOTE | 2019-11-18 09:30 | SP.MBSS_ITS ---
Modified Barium Swallow - Patient Information Study Date: 11/18/19 Study Time: 09:30 Direct Billable Minutes: 125 Total Minutes procedure & reportin Diagnosis: Dysphagia Referring Physician: Nitish Son Reason for Referral: MBSS ordered to objectively assess the anatomy and physiology of swallow function for determination of the least restrictive diet and appropriate dysphagia intervention to address deficits identified, secondary to Parkinson's Disease w/ recent extubation w/ known history of silent aspiration under fluoroscopy. Medical History: The patient is a 74 year old M with a significant history of COPD; CABG; pacemaker with defibrillation; diabetes mellitus; CKD stage III; and Parkinson disease who presents to the emergency department with weakness. Family reported patient has dyspnea w/ exertion and aspiration on water the day of presentation to ED 11/14/2019. Chest x-ray showed bilateral infiltrates. Pt was intubated 11/14/2019 at 2100, extubated 11/16/2019 at 0710. Pt underwent an outpatient MBS on 04/25/2018 w/ silent aspiration identified under fluoroscopy and recommendation to initiate a mechanical soft texture/nectar thickened liquid diet w/ the following aspiration precautions: Supervision, reduced bolus volume / rate of ingestion, seated upright at 90 degrees during PO intake with a forward / anterior lean, remain upright for 30- 60 minutes post meal (GERD precaution), medications one at a time with a liquid chaser; would consider training and implementation of the chin tuck posture. Patient denies use of thickened liquids nor follow up w/ outpatient speech therapy following prior MBS in 2019. Current Diet Ordered: NPO Dentition: Edentulous Respiratory Status: Oxygenating on 4L/M nasal cannula - 93% on 4L w/ LLL rhonchi per most recent nursing assessment - Study Findings Consistencies: Thin Liquid, [place] Thick Liquid, Pudding - Penetration-Aspiration Scale Penetration-Aspiration Scale: OBJECTIVE ASSESSMENT OF SWALLOW FUNCTION (QUANTITATIVE ? PER TRIAL): PENETRATION / ASPIRATION SCALE (MANCUSO): 1 = does not enter airway 2 = enters airway/above vocal folds/ejected 3 = enters airway/above vocal folds/not ejected 4 = enters airway/contacts vocal folds/ejected 5 = enters airway/contacts vocal folds/not ejected 6 = enters airway/below vocal folds/ejected 7 = enters airway/below vocal folds/not ejected despite effort 8 = enters airway/below vocal folds/no effort VIDEOFLOROSCOPIC SCALE SCORE (MANCUSO): Grade I = aspiration of material that has penetrated into the laryngeal ves tibule, intact cough reflex Grade II = aspiration < 10 % of the bolus, intact cough reflex Grade III = aspiration of < 10 % of the bolus, reduced cough reflex or aspiration of > 10 % of the bolus, intact cough reflex Grade IV = aspiration of > 10 % of the bolus, reduced cough reflex - Penetration-Aspiration Scale Score Thin Liquid via teaspoon Result: 8= enters airway/below vocal folds/no effort - Grade III Thin Liquid via teaspoon Trial 2 Result: 8= enters airway/below vocal folds/no effort - Grade III [place] Thick Liquid via teaspoon Result: 2= enter airway/above vocal folds/ejected [place] Thick Liquid via small single sip from cup Comment: unable to raise cup to lips d/t UE weakness, unable to trial via cup [place] Thick Liquid via single sip from straw Result: 5= enters airways/contacts vocal folds/not ejected [place] Thick Liquid via single sip from straw Chin tuck Result: 2= enter airway/above vocal folds/ejected [place] Thick Liquid via single sip from straw Chin tuck Trial 2 Result: 2= enter airway/above vocal folds/ejected Thin Liquid via single sip from straw Chin tuck Result: 1= does not enter airway Thin Liquid via single sip from straw Chin tuck Trial 2 Result: 1= does not enter airway Pudding via teaspoon Result: 1= does not enter airway Thin Liquid via single sip from straw Chin tuck Trial 3 Result: 3= enters airways/above vocal folds/not ejected Thin Liquid via single sip from straw Result: 5= enters airways/contacts vocal folds/not ejected Thin Liquid via single sip from straw Chin tuck Trial 4 Result: 2= enter airway/above vocal folds/ejected - Oral Phase Labial Seal: Escape progressing to mid-chin Tongue Control During Bolus Hold: Posterior escape of less than half of bolus Bolus Preparation/Mastication: Slow prolonged chewing/mashing with complete recollection - solids not trialed, slowed bouls prep w/ pudding Bolus Transport/Lingual Motion: Slowed tongue motion Oral Residue: Residue collection on oral structures - Pharyngeal Phase Initiation of Pharyngeal Swallow: Bolus head at posterior laryngeal surgace of epiglottis Soft Palate Elevation: No bolus between soft palate and pharyngeal wall Laryngeal Elevation: Partial superior movement thyroid cart/partial apprx aryt- epig petiole Anterior Hyoid Excursion: Partial anterior movement Epiglottic Movement: Complete inversion - delayed inversion Laryngeal Vestibule Closure at Height of Swallow: Incomplete; narrow column of air/contrast in laryngeal vestibule Pharyngeal Stripping Wave: Present - complete Pharyngoesophageal Segment Opening: Complete distension and complete duration; no obstruction of flow Tongue Base Retraction: Narrow column of contrast between tongue base & post. pharyngeal wall Pharyngeal Residue: Trace residue within or on pharyngeal structures - Esophageal Phase Esophageal Clearance: Complete clearance - limited view d/t shoulder positioning, no retention evident during deglutition - Diagnosis/Impression Diagnosis: moderate oropharyngeal dysphagia Impression: This patient presents w/ moderate ororpharyngeal dysphagia secondary to Parkinson's disease, likely exacerbated by recent extubation and increased O2 needs - currently requiring 4L via nasal cannula, did not use O2 prior to admission. Oral phase is characterized by: * adequate labial seal w/ liquids intake by straw * reduced lingual control/coordination for AP bolus transit w/ slowed and repetitive lingual motion * a significant collection of residue remained atop the lingual surface post deglutition across all consistencies assessed, requiring a second swallow to sufficiently clear the oral cavity Pharyngeal phase characterized by: * delayed swallow onset w/ dyssynchrony of swallow onset/pharyngeal contraction/laryngeal vestibule closure resulting in penetration and silent aspiration of thin liquids and penetration to the vocal folds w/ nectar thickened liquids * hyolaryngeal excursion was reduced w/ delayed epiglottic inversion and insufficient pressure to eject penetrated contrast from the laryngeal vestibule completely * penetration attributed to reduced oral to pharyngeal bolus control w/ premature pharyngeal bolus entry and delayed swallow onset timing; no outward response to contrast contacting the vocal folds not to tracheal aspiration * dystussia noted w/ insufficient cough strength to fully eject contrast from the larynx/trachea Esophageal phase characterized by: WFL; no obvious esophageal phase abnormalities observed Effect of compensatory swallowing strategies trialed under fluoroscopy: * liquid via straw - effective to improve cup to mouth bolus transfer * chin tuck - effective to improve arytenoid to epiglottic petiole contact and widen the vallecular space for improved control liquid w/ liquids pooling to the valleculae prior to swallow onset vs. to posterior laryngeal surface of the epiglottis when chin was not tucked w/ reduction in frequency and depth of laryngeal vestibule penetration * increased liquid viscosity - effective to reduced speed of oral to pharyngeal bolus flow, allowing sufficient timing for improved laryngeal vestibule closure and a reduction in laryngeal vestibule penetration - Recommendations Diet: Puree Textures, [place]-thick Liquids Comment: * Direct 1:1 Staff Supervision w/ meals/meds * Assist w/ feed & cues to consistently use strategies * HOB 90 or up in chair (preferred) for meals * Small bites/sips * Liquids by STRAW * CHIN TUCK before swallowing * SWALLOW 2x for each bite/sip w/ chin tucked * Discontinue intake if SOB/coughing * Meds whole vs. crused with purees as tolerated * Remain upright for 30-60 minutes after PO intake * Solid texture trials to commence under direct DIRECTOR PRESALES supervision once respiratory status improved and O2 demands decrease * SILENT ASPIRATOR w/ HIGH RISK to aspirate if precautions not consistently used Supervision: 1:1 Close Supervision Recommend Repeat Modified Barium Swallow: Yes Comment: Considerations for repeat MBS: * Would strongly discourage advancing beyond nectar thickened liquids without completion of a repeat modified barium swallow study due to the presence of aspiration which was silent in nature. * If the patient is able to consistently implement use of the chin tuck posture and double swallow, would consider thin liquid trialed w/ use of same and cautious advancement w/out repeat MBS as use of these strategies were identified under fluoroscopy to be effective to protect the airway w/ thin liquids. Need for skilled intervention by a Speech-Language Pathologist: * This patient demonstrates the need for continued dysphagia intervention at the current level of care w /continuation of services upon discharge - home w/ HH vs. SNF/inpatient rehab. * Intervention to include training and instruction w/ an oropharyngeal strengthening exercise program, assessment of compensatory swallow strategy use - consistency and efficacy; advanced trials of solid textures once respiratory status improves and O2 requirements decrease; trials of thin liquids under direct DIRECTOR PRESALES guidance only; education on preparation of thickened liquid and modified texture diet. Need for Skilled Speech Therapy Services: Yes Education Completed: 1. Described result of evaluation., 2. Pt understands evaluation & agrees with goals and treatment plan., 7. Pt requires further education on strategies & risks. Comment: Results and recommendations were discussed w/ the patient immediately following MBS completion. The patient verbalized understanding and agreement w/ the recommended diet, compensatory strategies and need for continued dysphagia intervention. The patient was able to teach back to this DIRECTOR PRESALES all education provided re: diet modifications and compensatory strategy use. Results were also conveyed to [place] - student nurse face to face, Magali Fernandez RN via telephone and a nursing communication was entered to reinforce the need for compensatory strategies and supervision outlined w/ the diet order. - Image Count: [phone] - Status Active ST Patient: Active - Contact Information [facility] Speech Therapy:: Chrissie Simmons M.A., [facility]-DIRECTOR PRESALES [facility] Speech-Language Pathologist [email or web address] [phone]
[2019-11-18] MEDS: BRIMONIDINE 0.2% 5ML BOTTLE 1 DRP EACH EYE ×2 (10:55→21:02)
[2019-11-18] MEDS: Furosemide 40 MG/4 ML Vial IV ×2 (10:55→17:16)
[2019-11-18] MEDS: Aspirin 81 MG TAB.CHEW PO (10:57)
[2019-11-18] MEDS: Carvedilol 12.5 MG Tablet PO ×2 (10:57→21:02)
[2019-11-18] MEDS: 0.9% Saline Lock 10 ML Syringe IV ×3 (10:57→21:00)
[2019-11-18] MEDS: Clopidogrel Bisulfate 75 MG Tablet PO (10:58)
[2019-11-18] MEDS: Carbidopa/Levodopa 25/100 Tablet PO ×2 (10:58→16:35)
[2019-11-18] MEDS: Allopurinol 100 MG Tablet PO (10:58)
[2019-11-18 11:51] LABS: Bedside Glucose 145 mg/dL (70-110)
--- NOTE | 2019-11-18 12:55 | PN.RENAL_ITS ---
Patient Problems: Active and Suspected Problems CHIKA (acute kidney injury) (Acute) Heart failure (Acute) NSTEMI (non-ST elevated myocardial infarction) (Acute) Subjective: no new events appears dyspneic desating this am urine output is ok as per staff - Physical Exam Vitals/I&O's: Vital Signs Temp Pulse Resp BP Pulse Ox 99.0 F 93 20 H 140/86 H 92 11/18/19 10:38 11/18/19 10:38 11/18/19 10:38 11/18/19 10:38 11/18/19 11:45 Oxygen Flow Rate (L/min) 7 Oxygen Delivery Method Nasal Cannula Weight: 102.2 kg Body Mass Index (BMI) 44.6 Intake and Output for Last 24 Hours 11/16/19 11/17/19 11/18/19 23:59 23:59 23:59 Intake Total 807.21 / 807.21 513.63 / 513.63 554.67 / 554.67 Output Total 2850 / 2850 2225 / 2225 700 / 700 Balance -2042.79 / -2042.79 -1711.37 / -1711.37 -145.33 / -145.33 General: Alert, Oriented x3, Cooperative HEENT: Atraumatic, PERRLA, EOMI, Normocephalic Neck: Supple, No JVD, Negative Carotid Bruits Lungs: Rales Cardiovascular: Regular rate, No murmurs Abdomen: Bowel Sounds Present, Soft, Non Tender Extremities: No edema, Capillary Refill Less than 3 Seconds Skin: No rashes, No breakdown Musculoskeletal: No Tenderness to Palpation of Joints or Extremities Neurological: Cranial nerves II-XII grossly intact Psych/Mental Status: Normal Affect, Appropriate Microbiology Past 72 Hours 11/15/19 00:00 Sputum, Induced/[place]ukens Gram Stain - Final 11/15/19 00:00 Sputum, Induced/[place]ens Respiratory Culture - Final 11/14/19 20:25 Blood Culture (Wb) - Anticubital Right Blood Culture - Preliminary No growth in 48 hours. 11/14/19 19:15 Blood Culture (Wb) - Anticubital Left Blood Culture - Preliminary No growth in 48 hours. 11/14/19 20:00 Urine Catheter - Catheter Urine Culture - Final Presumptive E. coli Laboratory Results 11/17/19 16:59: POC Glucose 105 11/17/19 18:10: APTT 45.7 H 11/18/19 00:05: POC Glucose 129 H 11/18/19 02:08: Sodium 146 H, Potassium 3.6, Chloride 112 H, Carbon Dioxide 26.0, Anion Gap 8, BUN 57 H, Creatinine 2.53 H, Estim Creat Clear Calc 19.18, Est GFR (MDRD) Af Amer 32 L, Est GFR (MDRD) Non-Af 26 L, BUN/Creatinine Ratio 22.5 H, Glucose 123 H, Calcium 9.1, Phosphorus 3.7, Albumin 2.5 L 11/18/19 02:08: WBC 10.6, RBC 3.90 L, Hgb 11.6 L, Hct 38.8 L, MCV 99.5 H, MCH 29.7, MCHC 29.9 L, RDW Std Deviation 54.0 H, RDW Coeff of Sammi 14.9 H, Plt Count 185, MPV 11.8, Immature Gran % (Auto) 1.000 H, Neut % (Auto) 81.2 H, Lymph % (Auto) 9.3 L, [place] % (Auto) 7.9, Eos % (Auto) 0.1, Baso % (Auto) 0.5, Absolute Neuts (auto) 8.6 H, Absolute Lymphs (auto) 0.98, Nucleated RBC % 0 11/18/19 02:08: APTT 49.3 H 11/18/19 02:08: Magnesium 2.8 H 11/18/19 06:12: POC Glucose 125 H 11/18/19 08:48: APTT 45.1 H 11/18/19 11:42: POC Glucose 145 H Current Medications Acetaminophen (Tylenol Liquid) 650 mg GT Q6H PRN PRN PRN Reason: Pain Score 1-10/Temp > 100.7 F Albuterol Sulfate (Ventolin Aerosols) 2.5 mg INHALATION Q2H PRN PRN PRN Reason: sob/wheezing Allopurinol (Zyloprim) 100 mg PO DAILYCM COUNT INCLUDES THE [facility] Last Admin: 11/18/19 10:58 Dose: 100 mg Documented by: Aspirin (Aspirin, Baby) 81 mg PO DAILY@0800 COUNT INCLUDES THE [facility] Last Admin: 11/18/19 10:57 Dose: 81 mg Documented by: Atorvastatin Calcium (Lipitor) 40 mg PO QHS COUNT INCLUDES THE [facility] Last Admin: 11/17/19 19:28 Dose: Not Given Documented by: Brimonidine Tartrate (Brimonidine 0.2% 5ml Bottle) 1 drop EACH EYE BID COUNT INCLUDES THE [facility] Last Admin: 11/18/19 10:55 Dose: 1 drop Documented by: Carbidopa/Levodopa (Sinemet) 2 tablet PO TIDAC COUNT INCLUDES THE [facility] Last Admin: 11/18/19 10:58 Dose: 2 tablet Documented by: Carvedilol (Coreg) 12.5 mg PO BID COUNT INCLUDES THE [facility] Last Admin: 11/18/19 10:57 Dose: 12.5 mg Documented by: Clopidogrel Bisulfate (Plavix) 75 mg PO DAILY COUNT INCLUDES THE [facility] Last Admin: 11/18/19 10:58 Dose: 75 mg Documented by: Dextrose (D50w Syringe) 0 gm IV X1 PRN; Protocol PRN Reason: Hypoglycemia Furosemide (Lasix) 40 mg IV DAILY COUNT INCLUDES THE [facility] Last Admin: 11/18/19 10:55 Dose: 40 mg Documented by: Glucagon () 1 mg IM .X1 PRN PRN Reason: Hypoglycemia Heparin Sodium (Porcine) (Heparin Na) 0 unit IV UD PRN; Protocol PRN Reason: dose adjustment Last Admin: 11/18/19 03:07 Dose: 1,000 unit Documented by: Piperacillin Sod/Tazobactam (Sod 3.375 gm/ Sodium Chloride) 50 mls @ 12.5 mls/hr IV Q12 COUNT INCLUDES THE [facility] Last Admin: 11/18/19 10:54 Dose: 12.5 mls/hr Documented by: Sodium Chloride () 250 mls @ 15 mls/hr IV .[id number] PRN PRN Reason: Saline Flush Last Infusion: 11/18/19 02:58 Dose: 15 mls/hr Documented by: Sodium Chloride () 250 mls @ 15 mls/hr IV .[id number] PRN PRN Reason: Additional IVPB Infusion Pantoprazole Sodium 40 mg/ (Sodium Chloride) 110 mls @ 330 mls/hr IV Q24@2200 COUNT INCLUDES THE [facility] Last Infusion: 11/17/19 22:21 Dose: Infused Documented by: Insulin Human Lispro (Humalog Kwikpen (Bkc)) 0 unit SC Q6 COUNT INCLUDES THE [facility]; Protocol Last Admin: 11/18/19 12:05 Dose: Not Given Documented by: Ondansetron HCl (Zofran) 4 mg IV Q8H PRN PRN PRN Reason: NAUSEA/VOMITING Sodium Chloride () 10 - 40 ml IV UD PRN PRN Reason: SALINE FLUSH Last Admin: 11/18/19 10:57 Dose: 20 ml Documented by: Medical Necessity - Tobacco Use Smoking Status: Former smoker Assessment/Plan All Active Problems Weakness (Acute) Dysuria (Acute) CHIKA (acute kidney injury) (Acute) Heart failure (Acute) NSTEMI (non-ST elevated myocardial infarction) (Acute) 1. 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 Baseline SCr had been around 1.9 mg/dL. CKD is likely due to diabetic nephropathy. CHIKA is likely due to prerenal CHIKA -> ischemic ATN from sepsis and heart failure (cardiorenal syndrome). renal US read pending cr is about the same 2. Severe sepsis. Due to UTI and pneumonia. Clinically improved. Hemodynamically stable 3. Acute hypoxic respiratory failure. Due to HFrEF, COPD and pneumonia. Will watch renal function while he is being diuresed. appears dyspneic. ok to give extra doses of lasix if needed 4. HFrEF. Pt has NSTEMI. Patient is on beta melissa. Holding off on ANAMARIA melissa (ACEI/ARB) because of CHIKA. Continue diuresis. Will watch renal function.
--- NOTE | 2019-11-18 13:00 | PCM.PN.PUL ---
Patient Problems: Active and Suspected Problems CHIKA (acute kidney injury) (Acute) Heart failure (Acute) NSTEMI (non-ST elevated myocardial infarction) (Acute) Subjective: The patient was seen and examined at the bedside this morning. Events from the last 24 hours have been reviewed. The patient is currently afebrile, hemodynamically stable and maintaining appropriate oxygen saturations on 7 L/min via nasal cannula. Objective: The patient's most recent lab work, culture data and imaging studies have all been personally reviewed. Urine culture dated November 13 was positive for presumptive E. coli. - Physical Exam Vitals/I&O's: Vital Signs Temp Pulse Resp BP Pulse Ox 99.2 F H 83 24 H 135/85 H 93 11/18/19 12:57 11/18/19 12:57 11/18/19 12:57 11/18/19 12:57 11/18/19 12:57 Oxygen Flow Rate (L/min) 7 Oxygen Delivery Method Nasal Cannula Weight: 225 lb 4.999 oz Body Mass Index (BMI) 44.6 Intake and Output for Last 24 Hours 11/16/19 11/17/19 11/18/19 23:59 23:59 23:59 Intake Total 807.21 / 807.21 513.63 / 513.63 554.67 / 554.67 Output Total 2850 / 2850 2225 / 2225 700 / 700 Balance -2042.79 / -2042.79 -1711.37 / -1711.37 -145.33 / -145.33 General: Alert, Cooperative, No apparent distress HEENT: Atraumatic, Normocephalic Oral: No Gingival or Mucosal Lesions/ Ulcerations Neck: Supple, No Nodes, Trachea Midline Lungs: Diminished Cardiovascular: Regular rate, Regular Rhythm Abdomen: Bowel Sounds Present, Soft, Non Tender Extremities: No clubbing, No cyanosis, No edema Skin: No breakdown Musculoskeletal: No Tenderness to Palpation of Joints or Extremities Lymphatic: No Cervical, Supraclavicular, or Inguinal Adenopathy Neurological: Cranial nerves II-XII grossly intact Psych/Mental Status: Normal Affect, Appropriate Labs (Last 48 Hours) 11/16/19 11/16/19 11/17/19 17:27 23:35 04:50 WBC 10.4 RBC 3.72 L Hgb 11.3 L Hct 36.1 L MCV 97.0 H MCH 30.4 MCHC 31.3 L RDW Std Deviation 52.3 H RDW Coeff of Sammi 14.9 H Plt Count 170 MPV 12.3 H Immature Gran % (Auto) 1.000 H Neut % (Auto) 82.2 H Lymph % (Auto) 9.7 L [place] % (Auto) 6.7 Eos % (Auto) 0.1 Baso % (Auto) 0.3 Absolute Neuts (auto) 8.6 H Absolute Lymphs (auto) 1.01 Nucleated RBC % 0 APTT Sodium Potassium Chloride Carbon Dioxide Anion Gap BUN Creatinine Estim Creat Clear Calc Est GFR (MDRD) Af Amer Est GFR (MDRD) Non-Af BUN/Creatinine Ratio Glucose Calcium Phosphorus Magnesium Albumin POC Glucose 114 H 101 11/17/19 11/17/19 11/17/19 04:50 04:50 05:27 WBC RBC Hgb Hct MCV MCH MCHC RDW Std Deviation RDW Coeff of Sammi Plt Count MPV Immature Gran % (Auto) Neut % (Auto) Lymph % (Auto) [place] % (Auto) Eos % (Auto) Baso % (Auto) Absolute Neuts (auto) Absolute Lymphs (auto) Nucleated RBC % APTT 52.2 H Sodium 143 Potassium 3.6 Chloride 109 H Carbon Dioxide 27.0 Anion Gap 7 BUN 52 H Creatinine 2.51 H Estim Creat Clear Calc 19.34 Est GFR (MDRD) Af Amer 32 L Est GFR (MDRD) Non-Af 27 L BUN/Creatinine Ratio 20.7 H Glucose 110 H Calcium 8.9 Phosphorus Magnesium Albumin POC Glucose 126 H 11/17/19 11/17/19 11/17/19 11:19 11:25 16:59 WBC RBC Hgb Hct MCV MCH MCHC RDW Std Deviation RDW Coeff of Sammi Plt Count MPV Immature Gran % (Auto) Neut % (Auto) Lymph % (Auto) [place] % (Auto) Eos % (Auto) Baso % (Auto) Absolute Neuts (auto) Absolute Lymphs (auto) Nucleated RBC % APTT 43.7 H Sodium Potassium Chloride Carbon Dioxide Anion Gap BUN Creatinine Estim Creat Clear Calc Est GFR (MDRD) Af Amer Est GFR (MDRD) Non-Af BUN/Creatinine Ratio Glucose Calcium Phosphorus Magnesium Albumin POC Glucose 119 H 105 11/17/19 11/18/1920 18:10 00:05 02:08 WBC RBC Hgb Hct MCV MCH MCHC RDW Std Deviation RDW Coeff of Sammi Plt Count MPV Immature Gran % (Auto) Neut % (Auto) Lymph % (Auto) [place] % (Auto) Eos % (Auto) Baso % (Auto) Absolute Neuts (auto) Absolute Lymphs (auto) Nucleated RBC % APTT 45.7 H Sodium 146 H Potassium 3.6 Chloride 112 H Carbon Dioxide 26.0 Anion Gap 8 BUN 57 H Creatinine 2.53 H Estim Creat Clear Calc 19.18 Est GFR (MDRD) Af Amer 32 L Est GFR (MDRD) Non-Af 26 L BUN/Creatinine Ratio 22.5 H Glucose 123 H Calcium 9.1 Phosphorus 3.7 Magnesium Albumin 2.5 L POC Glucose 129 H 11/18/19 11/18/19 11/18/19 02:08 02:08 02:08 WBC 10.6 RBC 3.90 L Hgb 11.6 L Hct 38.8 L MCV 99.5 H MCH 29.7 MCHC 29.9 L RDW Std Deviation 54.0 H RDW Coeff of Sammi 14.9 H Plt Count 185 MPV 11.8 Immature Gran % (Auto) 1.000 H Neut % (Auto) 81.2 H Lymph % (Auto) 9.3 L [place] % (Auto) 7.9 Eos % (Auto) 0.1 Baso % (Auto) 0.5 Absolute Neuts (auto) 8.6 H Absolute Lymphs (auto) 0.98 Nucleated RBC % 0 APTT 49.3 H Sodium Potassium Chloride Carbon Dioxide Anion Gap BUN Creatinine Estim Creat Clear Calc Est GFR (MDRD) Af Amer Est GFR (MDRD) Non-Af BUN/Creatinine Ratio Glucose Calcium Phosphorus Magnesium 2.8 H Albumin POC Glucose 11/18/19 11/18/19 11/18/19 06:12 08:48 11:42 WBC RBC Hgb Hct MCV MCH MCHC RDW Std Deviation RDW Coeff of Sammi Plt Count MPV Immature Gran % (Auto) Neut % (Auto) Lymph % (Auto) [place] % (Auto) Eos % (Auto) Baso % (Auto) Absolute Neuts (auto) Absolute Lymphs (auto) Nucleated RBC % APTT 45.1 H Sodium Potassium Chloride Carbon Dioxide Anion Gap BUN Creatinine Estim Creat Clear Calc Est GFR (MDRD) Af Amer Est GFR (MDRD) Non-Af BUN/Creatinine Ratio Glucose Calcium Phosphorus Magnesium Albumin POC Glucose 125 H 145 H Microbiology 11/15/19 00:00 Sputum, Induced/Lukens Gram Stain - Final 11/15/19 00:00 Sputum, Induced/[place] Respiratory Culture - Final 11/14/19 20:25 Blood Culture (Wb) - Anticubital Right Blood Culture - Preliminary No growth in 48 hours. 11/14/19 19:15 Blood Culture (Wb) - Anticubital Left Blood Culture - Preliminary No growth in 48 hours. 11/14/19 20:00 Urine Catheter - Catheter Urine Culture - Final Presumptive E. coli Clinical Impression(s) from Imaging Studies Chest X-Ray 11/14/19 19:27 IMPRESSION: Findings consistent with CHF/fluid overload as clinically indicated. More confluent patchy multifocal left pulmonary opacities may indicate an acute infectious or malignant process as clinically indicated. Electronically Signed: Polo Hernandez at 20:39 EDT Tel , Service support , Chest X-Ray 11/14/19 21:07 IMPRESSION: Endotracheal tube in a satisfactory position. Bilateral patchy and nodular opacities, may be secondary to multifocal pneumonia, cannot exclude a neoplastic process. Electronically Signed: Monica Rosario MD at 21:44 EDT Tel , Service support , Current Medications Acetaminophen (Tylenol Liquid) 650 mg GT Q6H PRN PRN PRN Reason: Pain Score 1-10/Temp > 100.7 F Albuterol Sulfate (Ventolin Aerosols) 2.5 mg INHALATION Q2H PRN PRN PRN Reason: sob/wheezing Allopurinol (Zyloprim) 100 mg PO DAILYCM [facility] Last Admin: 11/18/19 10:58 Dose: 100 mg Documented by: Aspirin (Aspirin, Baby) 81 mg PO DAILY@0800 [facility] Last Admin: 11/18/19 10:57 Dose: 81 mg Documented by: Atorvastatin Calcium (Lipitor) 40 mg PO QHS [facility] Last Admin: 11/17/19 19:28 Dose: Not Given Documented by: Brimonidine Tartrate (Brimonidine 0.2% 5ml Bottle) 1 drop EACH EYE BID [facility] Last Admin: 11/18/19 10:55 Dose: 1 drop Documented by: Carbidopa/Levodopa (Sinemet) 2 tablet PO TIDAC [facility] Last Admin: 11/18/19 10:58 Dose: 2 tablet Documented by: Carvedilol (Coreg) 12.5 mg PO BID [facility] Last Admin: 11/18/19 10:57 Dose: 12.5 mg Documented by: Clopidogrel Bisulfate (Plavix) 75 mg PO DAILY [facility] Last Admin: 11/18/19 10:58 Dose: 75 mg Documented by: Dextrose (D50w Syringe) 0 gm IV X1 PRN; Protocol PRN Reason: Hypoglycemia Furosemide (Lasix) 40 mg IV DAILY [facility] Last Admin: 11/18/19 10:55 Dose: 40 mg Documented by: Glucagon () 1 mg IM .X1 PRN PRN Reason: Hypoglycemia Heparin Sodium (Porcine) (Heparin Na) 0 unit IV UD PRN; Protocol PRN Reason: dose adjustment Last Admin: 11/18/19 03:07 Dose: 1,000 unit Documented by: Piperacillin Sod/Tazobactam (Sod 3.375 gm/ Sodium Chloride) 50 mls @ 12.5 mls/hr IV Q12 [facility] Last Admin: 11/18/19 10:54 Dose: 12.5 mls/hr Documented by: Sodium Chloride () 250 mls @ 15 mls/hr IV .[id number] PRN PRN Reason: Saline Flush Last Infusion: 11/18/19 02:58 Dose: 15 mls/hr Documented by: Sodium Chloride () 250 mls @ 15 mls/hr IV .[id number] PRN PRN Reason: Additional IVPB Infusion Pantoprazole Sodium 40 mg/ (Sodium Chloride) 110 mls @ 330 mls/hr IV Q24@2200 [facility] Last Infusion: 11/17/19 22:21 Dose: Infused Documented by: Insulin Human Lispro (Humalog Kwikpen (Bkc)) 0 unit SC Q6 [facility]; Protocol Last Admin: 11/18/19 12:05 Dose: Not Given Documented by: Ondansetron HCl (Zofran) 4 mg IV Q8H PRN PRN PRN Reason: NAUSEA/VOMITING Sodium Chloride () 10 - 40 ml IV UD PRN PRN Reason: SALINE FLUSH Last Admin: 11/18/19 10:57 Dose: 20 ml Documented by: Medical Necessity - Tobacco Use Smoking Status: Former smoker Assessment/Plan All Active Problems Weakness (Acute) Dysuria (Acute) CHIKA (acute kidney injury) (Acute) Heart failure (Acute) NSTEMI (non-ST elevated myocardial infarction) (Acute) RECOMMENDATIONS: 1. Wean supplemental oxygen to maintain saturations at or above 90%. 2. Continue Lasix as tolerated by hemodynamics and renal function. 3. Continue antimicrobials as ordered. 4. Aspiration precautions with dietary advancement per speech therapy recommendations. 5. Cardiac catheterization per cardiology. 6. Encourage incentive spirometer use and mobilize patient as tolerated. IMPRESSIONS: 1. Acute combined respiratory failure secondary to probable non-ST elevation [place] and aspiration pneumonia Respiratory failure is likely multifactorial in etiology with a component of heart failure and aspiration pneumonia contributing. Plan to continue empiric antimicrobials and diuresis as tolerated by hemodynamics and renal function. Continue to wean supplemental oxygen to maintain saturations at or above 90%. There are tentative plans for cardiac catheterization in the near future. I would recommend continuing aspiration precautions with dietary advancement per speech therapy recommendations. 2. Non-ST elevation [place] with presumed congestive heart failure/nonsustained ventricular tachycardia Surface echocardiogram revealed a reduction in EF to 45% with an akinetic apex. Cardiology is currently following. Anticipate cardiac catheterization in the near future. 3. Acute kidney injury on chronic kidney disease stage III Clinical suspicion for the prerenal etiology/ischemic ATN related to the patient's acute presentation including decompensated heart failure and aspiration pneumonia. Plan to continue current supportive measures per nephrology recommendations. Continue gentle diuresis as tolerated by hemodynamics and renal function. 4. Diabetes mellitus type 2/Parkinson's disease/elevated liver enzymes/history of gout/advanced age/morbid obesity Complicates care, management, recovery and prognosis. We will continue to monitor blood sugars closely. Metformin will be held given renal dysfunction and probable need for contrast. Recommend continuing Parkinson's medications if possible. This note was generated with [employer] software. It may contain incorrect words, spelling, and punctuation that were not noted in checking the note before signing. Inpatient E&M: 55686 Subs Hosp L2
--- NOTE | 2019-11-18 13:35 | RAD_ITS ---
STUDY: X-RAY CHEST REASON FOR EXAM: Male, 74 years old. hypoxemic and hypercapnic respiratory failure, cough TECHNIQUE: Single AP portable view of the chest. COMPARISON: 11/14/2019. FINDINGS: Since prior study endotracheal and nasogastric tubes have been removed. There has been significant worsening of infiltrate throughout the left lung especially the left upper lobe. There has been significant clearing of the right lung. There are small bilateral pleural effusions. There is moderate cardiac enlargement. Pacemaker is seen with leads terminating in the right atrium and right ventricle. Normal mediastinum and patrice. Normal visualized pulmonary arteries. Normal visualized aortic arch and descending thoracic aorta. Normal visualized thoracic spine. Normal visualized ribs, clavicles, and shoulders. There is no demonstrated abnormality of the visualized soft tissue structures of the upper abdomen. RAD/Chest PA and Lateral IMPRESSION: Worsening of infiltrate throughout the right lung. Improving infiltrate of the left lung. Electronically Signed: Garrick Fong MD at 19:55 EDT , Service support ,
--- NOTE | 2019-11-18 13:46 | PCM.PN.HOSP ---
<Michael Gutierrez - Last Filed: 11/18/19 13:46> Patient Problems: Active and Suspected Problems CHIKA (acute kidney injury) (Acute) Heart failure (Acute) NSTEMI (non-ST elevated myocardial infarction) (Acute) Reason for Visit: SOB. NSTEMI. Subjective: Patient remains on 7lpm o2. He c/o SOB at rest. He is very weak and unable to stand without 2 assistants. He could not take any steps. He denies fever/chills. He has a nonproductive cough. He has no chest pain/pressure/tightness/heaviness. He has no nausea or vomiting. He had a soft BM today. No abdominal pain. No LE edema. Vitals/I&O's: Vital Signs Temp Pulse Resp BP Pulse Ox 99.2 F H 83 24 H 135/85 H 93 11/18/19 12:57 11/18/19 12:57 11/18/19 12:57 11/18/19 12:57 11/18/19 12:57 Oxygen Flow Rate (L/min) 7 Oxygen Delivery Method Nasal Cannula Weight: 225 lb 4.999 oz Body Mass Index (BMI) 44.6 Intake and Output for Last 24 Hours 11/16/19 11/17/19 11/18/19 23:59 23:59 23:59 Intake Total 807.21 / 807.21 513.63 / 513.63 585.71 / 585.71 Output Total 2850 / 2850 2225 / 2225 700 / 700 Balance -2042.79 / -2042.79 -1711.37 / -1711.37 -114.29 / -114.29 General: Alert, Oriented x3, Cooperative HEENT: Atraumatic, PERRLA, EOMI, Normocephalic Neck: Supple, No JVD, Negative Carotid Bruits Lungs: Diminished, Rales Cardiovascular: Regular rate, No murmurs Abdomen: Bowel Sounds Present, Soft, Non Tender Extremities: No edema, Capillary Refill Less than 3 Seconds Skin: No rashes, No breakdown Musculoskeletal: No Tenderness to Palpation of Joints or Extremities Neurological: Cranial nerves II-XII grossly intact Psych/Mental Status: Normal Affect, Appropriate, Alert and oriented to time, place, person, mood and affect Microbiology Past 72 Hours 11/15/19 00:00 Sputum, Induced/Lukens Gram Stain - Final 11/15/19 00:00 Sputum, Induced/Lukens Respiratory Culture - Final 11/14/19 20:25 Blood Culture (Wb) - Anticubital Right Blood Culture - Preliminary No growth in 48 hours. 11/14/19 19:15 Blood Culture (Wb) - Anticubital Left Blood Culture - Preliminary No growth in 48 hours. 11/14/19 20:00 Urine Catheter - Catheter Urine Culture - Final Presumptive E. coli Laboratory Results 11/17/19 16:59: POC Glucose 105 11/17/19 18:10: APTT 45.7 H 11/18/19 00:05: POC Glucose 129 H 11/18/19 02:08: Sodium 146 H, Potassium 3.6, Chloride 112 H, Carbon Dioxide 26.0, Anion Gap 8, BUN 57 H, Creatinine 2.53 H, Estim Creat Clear Calc 19.18, Est GFR (MDRD) Af Amer 32 L, Est GFR (MDRD) Non-Af 26 L, BUN/Creatinine Ratio 22.5 H, Glucose 123 H, Calcium 9.1, Phosphorus 3.7, Albumin 2.5 L 11/18/19 02:08: WBC 10.6, RBC 3.90 L, Hgb 11.6 L, Hct 38.8 L, MCV 99.5 H, MCH 29.7, MCHC 29.9 L, RDW Std Deviation 54.0 H, RDW Coeff of Sammi 14.9 H, Plt Count 185, MPV 11.8, Immature Gran % (Auto) 1.000 H, Neut % (Auto) 81.2 H, Lymph % (Auto) 9.3 L, [place] % (Auto) 7.9, Eos % (Auto) 0.1, Baso % (Auto) 0.5, Absolute Neuts (auto) 8.6 H, Absolute Lymphs (auto) 0.98, Nucleated RBC % 0 11/18/19 02:08: APTT 49.3 H 11/18/19 02:08: Magnesium 2.8 H 11/18/19 06:12: POC Glucose 125 H 11/18/19 08:48: APTT 45.1 H 11/18/19 11:42: POC Glucose 145 H Current Medications Acetaminophen (Tylenol Liquid) 650 mg GT Q6H PRN PRN PRN Reason: Pain Score 1-10/Temp > 100.7 F Albuterol Sulfate (Ventolin Aerosols) 2.5 mg INHALATION Q2H PRN PRN PRN Reason: sob/wheezing Allopurinol (Zyloprim) 100 mg PO DAILYCM [facility] Last Admin: 11/18/19 10:58 Dose: 100 mg Documented by: Aspirin (Aspirin, Baby) 81 mg PO DAILY@0800 [facility] Last Admin: 11/18/19 10:57 Dose: 81 mg Documented by: Atorvastatin Calcium (Lipitor) 40 mg PO QHS [facility] Last Admin: 11/17/19 19:28 Dose: Not Given Documented by: Brimonidine Tartrate (Brimonidine 0.2% 5ml Bottle) 1 drop EACH EYE BID [facility] Last Admin: 11/18/19 10:55 Dose: 1 drop Documented by: Carbidopa/Levodopa (Sinemet) 2 tablet PO TIDAC [facility] Last Admin: 11/18/19 10:58 Dose: 2 tablet Documented by: Carvedilol (Coreg) 12.5 mg PO BID [facility] Last Admin: 11/18/19 10:57 Dose: 12.5 mg Documented by: Clopidogrel Bisulfate (Plavix) 75 mg PO DAILY [facility] Last Admin: 11/18/19 10:58 Dose: 75 mg Documented by: Dextrose (D50w Syringe) 0 gm IV X1 PRN; Protocol PRN Reason: Hypoglycemia Furosemide (Lasix) 40 mg IV DAILY [facility] Last Admin: 11/18/19 10:55 Dose: 40 mg Documented by: Glucagon () 1 mg IM .X1 PRN PRN Reason: Hypoglycemia Heparin Sodium (Porcine) (Heparin Na) 0 unit IV UD PRN; Protocol PRN Reason: dose adjustment Last Admin: 11/18/19 03:07 Dose: 1,000 unit Documented by: Piperacillin Sod/Tazobactam (Sod 3.375 gm/ Sodium Chloride) 50 mls @ 12.5 mls/hr IV Q12 [facility] Last Infusion: 11/18/19 13:23 Dose: 0 mls/hr Documented by: Sodium Chloride () 250 mls @ 15 mls/hr IV .[id number] PRN PRN Reason: Saline Flush Last Infusion: 11/18/19 02:58 Dose: 15 mls/hr Documented by: Sodium Chloride () 250 mls @ 15 mls/hr IV .[id number] PRN PRN Reason: Additional IVPB Infusion Pantoprazole Sodium 40 mg/ (Sodium Chloride) 110 mls @ 330 mls/hr IV Q24@2200 [facility] Last Infusion: 11/17/19 22:21 Dose: Infused Documented by: Insulin Human Lispro (Humalog Kwikpen (Bkc)) 0 unit SC Q6 [facility]; Protocol Last Admin: 11/18/19 12:05 Dose: Not Given Documented by: Ondansetron HCl (Zofran) 4 mg IV Q8H PRN PRN PRN Reason: NAUSEA/VOMITING Sodium Chloride () 10 - 40 ml IV UD PRN PRN Reason: SALINE FLUSH Last Admin: 11/18/19 10:57 Dose: 20 ml Documented by: STROKE Vital Signs/Narrative: Vital Signs Temp Pulse Resp BP Pulse Ox 11/18/19 12:57 99.2 F H 83 24 H 135/85 H 93 11/18/19 11:45 92 11/18/19 10:38 99.0 F 93 20 H 140/86 H 90 Medical Necessity - Tobacco Use Smoking Status: Former smoker Assessment/Plan All Active Problems Weakness (Acute) Dysuria (Acute) CHIKA (acute kidney injury) (Acute) Heart failure (Acute) NSTEMI (non-ST elevated myocardial infarction) (Acute) 1. NSTEMI - cardiology following. NO CP. No plans for cardiac intervention at this point. Continue aspirin/statin/coreg/ 2. Acute hypoxic respiratory failure 2/2 Acute systolic EF CHF, and pneumonia - EF 45% - continue IV lasix. No fever/chills/leukocytosis (resolved). Resp culture negative. Blood culture negative. Legionella and strep antigens negative. Pulmonary following. Repeat CXR pending. Continue zosyn. Suspect aspiration given his severe dysphagia. 3. Severe sepsis - 2/2 pneumonia and UTI - care as per #2. 4. CHIKA - nephrology following. likely prerenal CHIKA 2/2 sepsis/heart failure, ischemic atn per nephrology note. Good output at this point. Renal function improving. 5. Acute rhabdomyolysis - recheck CPK. 6. Dysphagia - cookie swallow done this AM. Diet modified. Continue ST 7. Parkinsons disease - severe debility. PTOT. Will need SNF. 8. Nonsustained Vtach, Hx pAfib with prior ablation - AICD in place. Currently sinus rhythm. DVT ppx: SCDs DC planning: SNF when stable. This patient was seen by Michael Gutierrez PA-C under the supervision of Dr. Bullock. <Aleksandr Bullock - Last Filed: 11/18/19 15:30> Vitals/I&O's: Vital Signs Temp Pulse Resp BP Pulse Ox 99.2 F H 86 18 145/83 H 92 11/18/19 14:39 11/18/19 14:39 11/18/19 14:39 11/18/19 14:39 11/18/19 14:39 Oxygen Flow Rate (L/min) 7 Oxygen Delivery Method Nasal Cannula Weight: 102.2 kg Body Mass Index (BMI) 44.6 Intake and Output for Last 24 Hours 11/16/19 11/17/19 11/18/19 23:59 23:59 23:59 Intake Total 807.21 / 807.21 513.63 / 513.63 585.71 / 585.71 Output Total 2850 / 2850 2225 / 2225 700 / 700 Balance -2042.79 / -2042.79 -1711.37 / -1711.37 -114.29 / -114.29 Microbiology Past 72 Hours 11/15/19 00:00 Sputum, Induced/Lukens Gram Stain - Final 11/15/19 00:00 Sputum, Induced/Lukens Respiratory Culture - Final 11/14/19 20:25 Blood Culture (Wb) - Anticubital Right Blood Culture - Preliminary No growth in 48 hours. 11/14/19 19:15 Blood Culture (Wb) - Anticubital Left Blood Culture - Preliminary No growth in 48 hours. 11/14/19 20:00 Urine Catheter - Catheter Urine Culture - Final Presumptive E. coli Laboratory Results 11/17/19 16:59: POC Glucose 105 11/17/19 18:10: APTT 45.7 H 11/18/19 00:05: POC Glucose 129 H 11/18/19 02:08: Sodium 146 H, Potassium 3.6, Chloride 112 H, Carbon Dioxide 26.0, Anion Gap 8, BUN 57 H, Creatinine 2.53 H, Estim Creat Clear Calc 19.18, Est GFR (MDRD) Af Amer 32 L, Est GFR (MDRD) Non-Af 26 L, BUN/Creatinine Ratio 22.5 H, Glucose 123 H, Calcium 9.1, Phosphorus 3.7, Albumin 2.5 L 11/18/19 02:08: WBC 10.6, RBC 3.90 L, Hgb 11.6 L, Hct 38.8 L, MCV 99.5 H, MCH 29.7, MCHC 29.9 L, RDW Std Deviation 54.0 H, RDW Coeff of Sammi 14.9 H, Plt Count 185, MPV 11.8, Immature Gran % (Auto) 1.000 H, Neut % (Auto) 81.2 H, Lymph % (Auto) 9.3 L, [place] % (Auto) 7.9, Eos % (Auto) 0.1, Baso % (Auto) 0.5, Absolute Neuts (auto) 8.6 H, Absolute Lymphs (auto) 0.98, Nucleated RBC % 0 11/18/19 02:08: APTT 49.3 H 11/18/19 02:08: Magnesium 2.8 H 11/18/19 02:08: Total Creatine Kinase 530 H 11/18/19 06:12: POC Glucose 125 H 11/18/19 08:48: APTT 45.1 H 11/18/19 11:42: POC Glucose 145 H Current Medications Acetaminophen (Tylenol Liquid) 650 mg GT Q6H PRN PRN PRN Reason: Pain Score 1-10/Temp > 100.7 F Albuterol Sulfate (Ventolin Aerosols) 2.5 mg INHALATION Q2H PRN PRN PRN Reason: sob/wheezing Allopurinol (Zyloprim) 100 mg PO DAILYCM [facility] Last Admin: 11/18/19 10:58 Dose: 100 mg Documented by: Aspirin (Aspirin, Baby) 81 mg PO DAILY@0800 [facility] Last Admin: 11/18/19 10:57 Dose: 81 mg Documented by: Atorvastatin Calcium (Lipitor) 40 mg PO QHS [facility] Last Admin: 11/17/19 19:28 Dose: Not Given Documented by: Brimonidine Tartrate (Brimonidine 0.2% 5ml Bottle) 1 drop EACH EYE BID [facility] Last Admin: 11/18/19 10:55 Dose: 1 drop Documented by: Carbidopa/Levodopa (Sinemet) 2 tablet PO TIDAC [facility] Last Admin: 11/18/19 10:58 Dose: 2 tablet Documented by: Carvedilol (Coreg) 12.5 mg PO BID [facility] Last Admin: 11/18/19 10:57 Dose: 12.5 mg Documented by: Clopidogrel Bisulfate (Plavix) 75 mg PO DAILY [facility] Last Admin: 11/18/19 10:58 Dose: 75 mg Documented by: Dextrose (D50w Syringe) 0 gm IV X1 PRN; Protocol PRN Reason: Hypoglycemia Furosemide (Lasix) 40 mg IV DAILY [facility] Last Admin: 11/18/19 10:55 Dose: 40 mg Documented by: Glucagon () 1 mg IM .X1 PRN PRN Reason: Hypoglycemia Heparin Sodium (Porcine) (Heparin Na) 0 unit IV UD PRN; Protocol PRN Reason: dose adjustment Last Admin: 11/18/19 03:07 Dose: 1,000 unit Documented by: Piperacillin Sod/Tazobactam (Sod 3.375 gm/ Sodium Chloride) 50 mls @ 12.5 mls/hr IV Q12 [facility] Last Infusion: 11/18/19 13:48 Dose: 12.5 mls/hr Documented by: Sodium Chloride () 250 mls @ 15 mls/hr IV .[id number] PRN PRN Reason: Saline Flush Last Infusion: 11/18/19 02:58 Dose: 15 mls/hr Documented by: Sodium Chloride () 250 mls @ 15 mls/hr IV .[id number] PRN PRN Reason: Additional IVPB Infusion Insulin Human Lispro (Humalog Kwikpen (Bkc)) 0 unit SC Q6 [facility]; Protocol Last Admin: 11/18/19 12:05 Dose: Not Given Documented by: Ondansetron HCl (Zofran) 4 mg IV Q8H PRN PRN PRN Reason: NAUSEA/VOMITING Pantoprazole Sodium (Protonix) 40 mg PO DAILY [facility] Sodium Chloride () 10 - 40 ml IV UD PRN PRN Reason: SALINE FLUSH Last Admin: 11/18/19 10:57 Dose: 20 ml Documented by: STROKE Vital Signs/Narrative: Vital Signs Temp Pulse Resp BP Pulse Ox 11/18/19 14:39 99.2 F H 86 18 145/83 H 92 11/18/19 12:57 99.2 F H 83 24 H 135/85 H 93 11/18/19 11:45 92 Assessment/Plan This patient was seen in conjunction with Michael Gutierrez PA-C . I have independently interviewed and examined the patient and reviewed pertinent historical, laboratory, and other data. Please refer to Michael Gutierrez PA-C note for details of this patient's presentation, findings, and recommendations. I have reviewed Michael Gutierrez PA-C note and concur with documented findings. In brief, patient 24-year-old gentleman with multiple comorbidities admitted with progressive shortness of breath. An assessment of acute hypoxic respiratory failure secondary to combination of CHF pneumonia made admitted for subsequent management. Patient was initially managed on noninvasive ventilation BiPAP however his condition deteriorated resulting in patient being intubated. Weaned off the vent on 11/14/2019. Physical Examination: GENERAL: Frail looking HEENT: Atraumatic; EYES; Anicteric, NECK; supple, normal thyroid, RESPIRATORY: Diminished to auscultation CARDIOVASCULAR: Regular S1 S2, GI: soft, normoactive bowel sounds, : No Renal angle tenderness; EXTREMITIES: edema, no clubbing, NEURO: Awake; no lateralizing signs. PSYCH; Flat affect Assessment: 1. Acute hypoxic respiratory failure 2. Severe sepsis secondary to pneumonia with suspected multidrug organisms 3. Non-ST segment elevation [place] 4. Acute kidney injury 5. Acute rhabdomyolysis 6. Acute congestive heart failure with reduced ejection fraction?45% 7. Pulmonary hypertension with pulmonary arterial systolic pressure of 50 to 55 mmHg 8. Parkinson's disease 9. Dysphagia 10. Non Sustained VT Recommendations: 1. I have discussed the results of my overview and impressions with the patient 2. Options for management were reviewed Inpatient E&M: [id number] [facility] L3
--- NOTE | 2019-11-18 13:48 | CASEMGMT ---
SW stopped in to see patient. Introduced self and role at [facility]. Patient was not sure about a discharge plan. SW told him he will need to go to a shelter facility short term for rehab. He gave SW permission to call his . SW called patient's to discuss d/c plan. She agrees he needs a SNF for rehab. She said [facility] be better than [facility]. JOSE told her SW will put a list of [place] and [facility] SNF lists in his room. She said she will not be in today, but tomorrow. SW placed lists in patient's room. Plan: SNF pending being medically ready, patient choosing a facility and getting an accepting facility. Ana Cristina MEADE MSW
[2019-11-18 14:44] LABS: CPK Total, Creatine Kinase 530 U/L (39-308)
[2019-11-18] MEDS: Acetaminophen 325 MG Tablet 650 MG PO (16:35)
[2019-11-18 16:45] LABS: Bedside Glucose 121 mg/dL (70-110)
[2019-11-18 16:46] LABS: Glucose 121 mg/dL (74-106)
[2019-11-18 16:47] LABS: Potassium 3.8 mmol/L (3.5-5.1)
[2019-11-18 16:55] LABS: Base Excess 3 mmol/L (-2 to +2); Bicarbonate 26.6 mmol/L (22-26); Blood Gas Specimen Type ART; O2 Delivery Device Cannula; PO2 64 mmHG (75-100); SITE L Radial; SO2 93 % (95-99); Total Carbon Dioxide 28 mmol/L; pCO2 37.7 mmHg (35-45); pH 7.46 (7.35-7.45)
--- NOTE | 2019-11-18 19:02 | NURSING ---
all patient care and medication administration complete by Lisa Tolbert, Student Nurse, done under the supervision of this RN.
[2019-11-18] MEDS: Atorvastatin Calcium 40 MG Tablet PO (21:02)
[2019-11-19] VITALS (15 sets, daily range): BP systolic 130–145; BP diastolic 69–89; PULSE 71–78; RESP 12–22; TEMP 36.6–37.2; O2SAT 92–97
[2019-11-19 00:01] LABS: Bedside Glucose 136 mg/dL (70-110)
--- NOTE | 2019-11-19 05:00 | EKG12_ITS ---
Test Reason : AM EKG Blood Pressure : / mmHG Vent. Rate : 074 BPM Atrial Rate : 074 BPM P-R Int : 174 ms QRS Dur : 140 ms QT Int : 446 ms P-R-T Axes : -01 137 -16 degrees QTc Int : 495 ms Sinus rhythm with occasional Premature ventricular complexes Right bundle branch block Left posterior fascicular block Bifascicular block Inferior infarct , age undetermined , cannot be excluded Anteroseptal infarct , age undetermined Abnormal ECG Confirmed by SMAIRA BRAVO, TARAS ([id number]), newspaper or periodical editor THOMAS FLORES ([id number]) on 11/20/2019 10:22:51 AM Referred By: PO Confirmed By:TARAS HOGAN MD
[2019-11-19 05:56] LABS: Absolute Lymphocyte Count 0.93 X10^3/uL (0.83-4.51); Absolute Neutrophil Count 6.8 X10^3/uL (2.0-7.7); Basophil# 0.03 X10^3/uL; Basophil% 0.3 % (0-1); Eosinophil# 0.04 X10^3/uL; Eosinophils% 0.5 % (0-5); Hematocrit 38.7 % (40-54); Hemoglobin 11.7 g/dL (13.0-16.5); Lymphocyte # 0.93 X10^3/ul (4.0); Lymphocyte % 10.8 % (19-41); Mean Corp Hgb Conc 30.2 g/dL (32-36); Mean Corpuscular Hgb 30.3 pg (27.0-32.0); Mean Corpuscular Volume 100.3 fL (80-94); Mean Platelet Vol. 11.8 fl (6.2-12.0); Monocyte# 0.71 X10^3/uL; Monocyte% 8.2 % (0-10); NRBC Flagged by Analyzer 0 % (0-5); Neutrophil # 6.81 X10^3/uL (2.7-7.7); Platelet Count 205 K/mm3 (150-450); RBC Distribution Width CV 14.7 % (11.6-14.6); RBC Distribution Width SD 54.5 fl (35.1-43.9); Red Blood Count 3.86 M/mm3 (4.6-6.2); White Blood Count 8.6 K/mm3 (4.4-11.0)
[2019-11-19] MEDS: Carbidopa/Levodopa 25/100 Tablet PO ×3 (05:57→17:00)
[2019-11-19] MEDS: Aspirin 81 MG TAB.CHEW PO (05:58)
[2019-11-19] MEDS: Carvedilol 12.5 MG Tablet PO ×2 (05:58→21:59)
[2019-11-19] MEDS: Clopidogrel Bisulfate 75 MG Tablet PO (05:58)
[2019-11-19 06:10] LABS: Bedside Glucose 126 mg/dL (70-110)
[2019-11-19 06:31] LABS: Anion Gap 6 (5-15); BUN 63 mg/dL (7-18); BUN/Creat Ratio 23.2 RATIO (10-20); Calcium,Total 9.3 mg/dL (8.5-10.1); Chloride 116 mmol/L (98-107); Creatinine, Serum 2.72 mg/dL (0.70-1.30); EST Glomerular Filtration Rate 24 mL/min (>60); Est Glom Filt Rate - Afr Amer 29 mL/min (>60); Estimated Creatinine Clearance 17.84 ml/min; Glucose 119 mg/dL (74-106); Potassium 3.6 mmol/L (3.5-5.1); Sodium Level 151 mmol/L (136-145)
--- NOTE | 2019-11-19 07:27 | NURSING ---
This RN reviewed charting of Sarah Solis RN.
[2019-11-19 09:55] LABS: BUN 61 mg/dL (7-18); BUN/Creat Ratio 23.9 RATIO (10-20); Creatinine, Serum 2.55 mg/dL (0.70-1.30); EST Glomerular Filtration Rate 26 mL/min (>60); Estimated Creatinine Clearance 19.03 ml/min
[2019-11-19 09:56] LABS: Calcium,Total 9.1 mg/dL (8.5-10.1); Est Glom Filt Rate - Afr Amer 32 mL/min (>60); Magnesium 2.9 mg/dL (1.6-2.6); Sodium Level 152 mmol/L (136-145)
[2019-11-19 09:57] LABS: Anion Gap 7 (5-15); Chloride 117 mmol/L (98-107)
[2019-11-19] MEDS: Allopurinol 100 MG Tablet PO (10:08)
[2019-11-19] MEDS: BRIMONIDINE 0.2% 5ML BOTTLE 1 DRP EACH EYE ×2 (10:08→21:59)
[2019-11-19] MEDS: Pantoprazole Sodium 40 MG Tablet PO (10:10)
--- NOTE | 2019-11-19 11:07 | CT_ITS ---
STUDY: CT CHEST WITHOUT CONTRAST REASON FOR EXAM: Male, 74 years old. HYPOXIA, RESP FAILURE RADIATION DOSAGE (If Supplied By Facility): CTDIvol = ( 20.72 ) mGy, DLP = ( 786.02 ) mGycm TECHNIQUE: Transaxial imaging was performed without the administration of intravenous contrast material. Individualized dose optimization techniques were used for this CT. COMPARISON: None. FINDINGS: Left subclavian pacemaker. Dense alveolar densities in the upper lobes greater on the left and the right consistent with bilateral pneumonia. Small bilateral pleural effusions with some bibasilar atelectasis. Normal heart and pericardium. There are calcifications of the coronary arteries. Enlarged thyroid gland with substernal extension on the right consistent with goiter. Several prominent mediastinal lymph nodes which are likely reactive. Normal hilar regions. Normal unenhanced pulmonary arteries. Normal aorta arch and descending thoracic aorta. Normal osseous structures. 2 cm adenoma the right adrenal gland. Bilateral renal cysts. CT/Chest without Contrast IMPRESSION: 1. Dense bilateral upper lobe pneumonia greater on the left than the right. 2. Small bilateral pleural effusions with some bibasilar atelectasis. 3. Thyroid goiter with substernal extension on the right. 4. Reactive mediastinal lymphadenopathy. Electronically Signed: Rome Dalton MD at 12:20 EDT Tel , Service support ,
--- NOTE | 2019-11-19 11:11 | PCM.PN.PUL ---
Patient Problems: Active and Suspected Problems CHIKA (acute kidney injury) (Acute) Heart failure (Acute) NSTEMI (non-ST elevated myocardial infarction) (Acute) Subjective: The patient was seen and examined at the bedside this morning. Events from the last 24 hours have been reviewed. The patient is currently afebrile, hemodynamically stable and maintaining appropriate oxygen saturations on 4 L/min via nasal cannula. Repeat x-ray completed yesterday afternoon did reveal worsening infiltrate in the left lung. The patient is currently documented to be overall net negative almost 4 L for the hospital admission. Sodium and chloride remain elevated. Creatinine has increased some this morning to 2.72. The patient denies the presence of resting shortness of breath. Objective: The patient's most recent lab work, culture data and imaging studies have all been personally reviewed. Surface echocardiogram revealed normal LV size with an ejection fraction of 45% and stage I diastolic dysfunction. Pulmonary artery systolic pressure was estimated to be 50 to 55 mmHg. Urine culture dated November 13 was positive for presumptive E. coli. Strep and urine Legionella antigens were negative. Blood and sputum cultures have shown no growth to date. - Physical Exam Vitals/I&O's: Vital Signs Temp Pulse Resp BP Pulse Ox 98.6 F 77 22 H 141/75 H 95 11/19/19 05:50 11/19/19 06:51 11/19/19 05:50 11/19/19 05:50 11/19/19 07:20 Oxygen Flow Rate (L/min) 7 Oxygen Delivery Method Nasal Cannula Weight: 218 lb 7.649 oz Body Mass Index (BMI) 44.6 Intake and Output for Last 24 Hours 11/17/19 11/18/19 11/19/19 23:59 23:59 23:59 Intake Total 513.63 / 513.63 1235.17 / 1280.17 127 / 127 Output Total 2225 / 2225 700 / 700 Balance -1711.37 / -1711.37 535.17 / 580.17 127 / 127 General: Alert, Cooperative, No apparent distress, - - Sitting upright in bed. HEENT: Atraumatic, Normocephalic Oral: No Gingival or Mucosal Lesions/ Ulcerations Neck: Supple, No Nodes, Trachea Midline Lungs: Diminished Cardiovascular: Regular rate, Regular Rhythm Abdomen: Bowel Sounds Present, Soft, Non Tender, Obese Extremities: No clubbing, No cyanosis, No edema Skin: No breakdown Musculoskeletal: No Muscle Wasting Lymphatic: No Cervical, Supraclavicular, or Inguinal Adenopathy Neurological: Cranial nerves II-XII grossly intact, Neuro grossly intact Psych/Mental Status: Normal Affect, Appropriate Labs (Last 48 Hours) 11/17/19 11/17/19 11/17/19 11:19 11:25 16:59 WBC RBC Hgb Hct MCV MCH MCHC RDW Std Deviation RDW Coeff of Sammi Plt Count MPV Immature Gran % (Auto) Neut % (Auto) Lymph % (Auto) [place] % (Auto) Eos % (Auto) Baso % (Auto) Absolute Neuts (auto) Absolute Lymphs (auto) Nucleated RBC % APTT 43.7 H Specimen Type Sample Site pH Bicarbonate Actual Total CO2 Base Excess O2 Saturation ABG pCO2 ABG pO2 O2 Delivery Device Liter Flow Sodium Potassium Chloride Carbon Dioxide Anion Gap BUN Creatinine Estim Creat Clear Calc Est GFR (MDRD) Af Amer Est GFR (MDRD) Non-Af BUN/Creatinine Ratio Glucose Calcium Phosphorus Magnesium Total Creatine Kinase Albumin POC Glucose 119 H 105 11/17/19 11/18/19 11/18/19 18:10 00:05 02:08 WBC RBC Hgb Hct MCV MCH MCHC RDW Std Deviation RDW Coeff of Sammi Plt Count MPV Immature Gran % (Auto) Neut % (Auto) Lymph % (Auto) [place] % (Auto) Eos % (Auto) Baso % (Auto) Absolute Neuts (auto) Absolute Lymphs (auto) Nucleated RBC % APTT 45.7 H Specimen Type Sample Site pH Bicarbonate Actual Total CO2 Base Excess O2 Saturation ABG pCO2 ABG pO2 O2 Delivery Device Liter Flow Sodium 146 H Potassium 3.6 Chloride 112 H Carbon Dioxide 26.0 Anion Gap 8 BUN 57 H Creatinine 2.53 H Estim Creat Clear Calc 19.18 Est GFR (MDRD) Af Amer 32 L Est GFR (MDRD) Non-Af 26 L BUN/Creatinine Ratio 22.5 H Glucose 123 H Calcium 9.1 Phosphorus 3.7 Magnesium Total Creatine Kinase Albumin 2.5 L POC Glucose 129 H 11/18/19 11/18/19 11/18/19 02:08 02:08 02:08 WBC 10.6 RBC 3.90 L Hgb 11.6 L Hct 38.8 L MCV 99.5 H MCH 29.7 MCHC 29.9 L RDW Std Deviation 54.0 H RDW Coeff of Sammi 14.9 H Plt Count 185 MPV 11.8 Immature Gran % (Auto) 1.000 H Neut % (Auto) 81.2 H Lymph % (Auto) 9.3 L [place] % (Auto) 7.9 Eos % (Auto) 0.1 Baso % (Auto) 0.5 Absolute Neuts (auto) 8.6 H Absolute Lymphs (auto) 0.98 Nucleated RBC % 0 APTT 49.3 H Specimen Type Sample Site pH Bicarbonate Actual Total CO2 Base Excess O2 Saturation ABG pCO2 ABG pO2 O2 Delivery Device Liter Flow Sodium Potassium Chloride Carbon Dioxide Anion Gap BUN Creatinine Estim Creat Clear Calc Est GFR (MDRD) Af Amer Est GFR (MDRD) Non-Af BUN/Creatinine Ratio Glucose Calcium Phosphorus Magnesium 2.8 H Total Creatine Kinase Albumin POC Glucose 11/18/19 11/18/19 11/18/19 02:08 06:12 08:48 WBC RBC Hgb Hct MCV MCH MCHC RDW Std Deviation RDW Coeff of Sammi Plt Count MPV Immature Gran % (Auto) Neut % (Auto) Lymph % (Auto) [place] % (Auto) Eos % (Auto) Baso % (Auto) Absolute Neuts (auto) Absolute Lymphs (auto) Nucleated RBC % APTT 45.1 H Specimen Type Sample Site pH Bicarbonate Actual Total CO2 Base Excess O2 Saturation ABG pCO2 ABG pO2 O2 Delivery Device Liter Flow Sodium Potassium Chloride Carbon Dioxide Anion Gap BUN Creatinine Estim Creat Clear Calc Est GFR (MDRD) Af Amer Est GFR (MDRD) Non-Af BUN/Creatinine Ratio Glucose Calcium Phosphorus Magnesium Total Creatine Kinase 530 H Albumin POC Glucose 125 H 11/18/19 11/18/19 11/18/19 11:42 16:35 16:37 WBC RBC Hgb Hct MCV MCH MCHC RDW Std Deviation RDW Coeff of Sammi Plt Count MPV Immature Gran % (Auto) Neut % (Auto) Lymph % (Auto) [place] % (Auto) Eos % (Auto) Baso % (Auto) Absolute Neuts (auto) Absolute Lymphs (auto) Nucleated RBC % APTT Specimen Type Sample Site pH Bicarbonate Actual Total CO2 Base Excess O2 Saturation ABG pCO2 ABG pO2 O2 Delivery Device Liter Flow Sodium 152 H Potassium 3.8 Chloride 117 H Carbon Dioxide 28.0 Anion Gap 7 BUN 61 H Creatinine 2.55 H Estim Creat Clear Calc 19.03 Est GFR (MDRD) Af Amer 32 L Est GFR (MDRD) Non-Af 26 L BUN/Creatinine Ratio 23.9 H Glucose 121 H Calcium 9.1 Phosphorus Magnesium 2.9 H Total Creatine Kinase Albumin POC Glucose 145 H 121 H 11/18/19 11/18/19 11/19/19 16:48 23:51 05:10 WBC 8.6 RBC 3.86 L Hgb 11.7 L Hct 38.7 L MCV 100.3 H MCH 30.3 MCHC 30.2 L RDW Std Deviation 54.5 H RDW Coeff of Sammi 14.7 H Plt Count 205 MPV 11.8 Immature Gran % (Auto) 1.200 H Neut % (Auto) 79.0 H Lymph % (Auto) 10.8 L [place] % (Auto) 8.2 Eos % (Auto) 0.5 Baso % (Auto) 0.3 Absolute Neuts (auto) 6.8 Absolute Lymphs (auto) 0.93 Nucleated RBC % 0 APTT Specimen Type ART Sample Site L Radial pH 7.46 H Bicarbonate Actual 26.6 H Total CO2 28 Base Excess 3 H O2 Saturation 93 L ABG pCO2 37.7 ABG pO2 64 L O2 Delivery Device Cannula Liter Flow 7.0 Sodium Potassium Chloride Carbon Dioxide Anion Gap BUN Creatinine Estim Creat Clear Calc Est GFR (MDRD) Af Amer Est GFR (MDRD) Non-Af BUN/Creatinine Ratio Glucose Calcium Phosphorus Magnesium Total Creatine Kinase Albumin POC Glucose 136 H 11/19/19 11/19/19 05:10 05:56 WBC RBC Hgb Hct MCV MCH MCHC RDW Std Deviation RDW Coeff of Sammi Plt Count MPV Immature Gran % (Auto) Neut % (Auto) Lymph % (Auto) [place] % (Auto) Eos % (Auto) Baso % (Auto) Absolute Neuts (auto) Absolute Lymphs (auto) Nucleated RBC % APTT Specimen Type Sample Site pH Bicarbonate Actual Total CO2 Base Excess O2 Saturation ABG pCO2 ABG pO2 O2 Delivery Device Liter Flow Sodium 151 H Potassium 3.6 Chloride 116 H Carbon Dioxide 29.0 Anion Gap 6 BUN 63 H Creatinine 2.72 H Estim Creat Clear Calc 17.84 Est GFR (MDRD) Af Amer 29 L Est GFR (MDRD) Non-Af 24 L BUN/Creatinine Ratio 23.2 H Glucose 119 H Calcium 9.3 Phosphorus Magnesium Total Creatine Kinase Albumin POC Glucose 126 H Microbiology 11/15/19 00:00 Sputum, Induced/Lukens Gram Stain - Final 11/15/19 00:00 Sputum, Induced/Lukens Respiratory Culture - Final 11/14/19 20:25 Blood Culture (Wb) - Anticubital Right Blood Culture - Preliminary No growth in 48 hours. 11/14/19 19:15 Blood Culture (Wb) - Anticubital Left Blood Culture - Preliminary No growth in 48 hours. Clinical Impression(s) from Imaging Studies Chest X-Ray 11/14/19 19:27 IMPRESSION: Findings consistent with CHF/fluid overload as clinically indicated. More confluent patchy multifocal left pulmonary opacities may indicate an acute infectious or malignant process as clinically indicated. Electronically Signed: Polo Hernandez, at 20:39 EDT Tel , Service support , Chest X-Ray 11/14/19 21:07 IMPRESSION: Endotracheal tube in a satisfactory position. Bilateral patchy and nodular opacities, may be secondary to multifocal pneumonia, cannot exclude a neoplastic process. Electronically Signed: Monica Rosario MD at 21:44 EDT Tel , Service support , Renal Ultrasound 11/17/19 07:36 IMPRESSION: No definite acute abnormalities. Bilateral renal cysts. Possible nonobstructing stone of the left kidney. Electronically Signed: Garrick Fong MD at 20:02 EDT , Service support , Chest X-Ray 11/18/19 13:35 IMPRESSION: Worsening of infiltrate throughout the right lung. Improving infiltrate of the left lung. Electronically Signed: Garrick Fong MD at 19:55 EDT , Service support , Current Medications Acetaminophen (Tylenol) 650 mg PO Q6H PRN PRN PRN Reason: Pain 1-10 or Fever Last Admin: 11/18/19 16:35 Dose: 650 mg Documented by: Albuterol Sulfate (Ventolin Aerosols) 2.5 mg INHALATION Q2H PRN PRN PRN Reason: sob/wheezing Allopurinol (Zyloprim) 100 mg PO DAILYCM [facility] Last Admin: 11/19/19 10:08 Dose: 100 mg Documented by: Aspirin (Aspirin, Baby) 81 mg PO DAILY@0800 [facility] Last Admin: 11/19/19 05:58 Dose: 81 mg Documented by: Atorvastatin Calcium (Lipitor) 40 mg PO QHS [facility] Last Admin: 11/18/19 21:02 Dose: 40 mg Documented by: Brimonidine Tartrate (Brimonidine 0.2% 5ml Bottle) 1 drop EACH EYE BID [facility] Last Admin: 11/19/19 10:08 Dose: 1 drop Documented by: Carbidopa/Levodopa (Sinemet) 2 tablet PO TIDAC [facility] Last Admin: 11/19/19 10:10 Dose: 2 tablet Documented by: Carvedilol (Coreg) 12.5 mg PO BID [facility] Last Admin: 11/19/19 05:58 Dose: 12.5 mg Documented by: Clopidogrel Bisulfate (Plavix) 75 mg PO DAILY [facility] Last Admin: 11/19/19 05:58 Dose: 75 mg Documented by: Dextrose (D50w Syringe) 0 gm IV X1 PRN; Protocol PRN Reason: Hypoglycemia Furosemide (Lasix) 40 mg IV BIDLX [facility] Last Admin: 11/19/19 06:56 Dose: Not Given Documented by: Glucagon () 1 mg IM .X1 PRN PRN Reason: Hypoglycemia Heparin Sodium (Porcine) (Heparin Na) 0 unit IV UD PRN; Protocol PRN Reason: dose adjustment Last Admin: 11/18/19 03:07 Dose: 1,000 unit Documented by: Piperacillin Sod/Tazobactam (Sod 3.375 gm/ Sodium Chloride) 50 mls @ 12.5 mls/hr IV Q12 [facility] Last Admin: 11/19/19 10:07 Dose: 12.5 mls/hr Documented by: Sodium Chloride () 250 mls @ 15 mls/hr IV .[id number] PRN PRN Reason: Saline Flush Last Infusion: 11/19/19 02:50 Dose: 0 mls/hr Documented by: Sodium Chloride () 250 mls @ 15 mls/hr IV .[id number] PRN PRN Reason: Additional IVPB Infusion Dextrose () 1,000 mls @ 75 mls/hr IV .[id number] [facility] Stop: 11/19/19 20:19 Last Admin: 11/19/19 08:09 Dose: 75 mls/hr Documented by: Insulin Human Lispro (Humalog Kwikpen (Bkc)) 0 unit SC Q6 [facility]; Protocol Last Admin: 11/19/19 05:59 Dose: Not Given Documented by: Lactobacillus Acidophilus (Acidophilus) 1 tablet PO TID [facility] Last Admin: 11/19/19 05:57 Dose: 1 tablet Documented by: Ondansetron HCl (Zofran) 4 mg IV Q8H PRN PRN PRN Reason: NAUSEA/VOMITING Pantoprazole Sodium (Protonix) 40 mg PO DAILY [facility] Last Admin: 11/19/19 10:10 Dose: 40 mg Documented by: Sodium Chloride () 10 - 40 ml IV UD PRN PRN Reason: SALINE FLUSH Last Admin: 11/18/19 21:00 Dose: 10 ml Documented by: Medical Necessity - Tobacco Use Smoking Status: Former smoker Assessment/Plan All Active Problems Weakness (Acute) Dysuria (Acute) CHIKA (acute kidney injury) (Acute) Heart failure (Acute) NSTEMI (non-ST elevated myocardial infarction) (Acute) RECOMMENDATIONS: 1. Wean supplemental oxygen to maintain saturations at or above 90%. 2. Obtain noncontrasted chest CT. 3. Hold Lasix and consider starting D5W infusion given rising sodium and chloride levels. 4. Continue empiric antimicrobials. Given worsening infiltrate noted on x-ray, consider adding vancomycin. 5. Aspiration precautions with dietary advancement per speech therapy recommendations. 6. Timing of cardiac catheterization per cardiology. 7. Encourage incentive spirometer use and mobilize patient as tolerated. IMPRESSIONS: 1. Acute combined respiratory failure secondary to probable non-ST elevation ME and aspiration pneumonia Respiratory failure is likely multifactorial in etiology with a component of heart failure and aspiration pneumonia contributing. Plan to continue empiric antimicrobials and diuresis as tolerated by hemodynamics and renal function. Continue to wean supplemental oxygen to maintain saturations at or above 90%. There are tentative plans for cardiac catheterization in the near future. I would recommend continuing aspiration precautions with dietary advancement per speech therapy recommendations. 2. Non-ST elevation ME with presumed congestive heart failure/nonsustained ventricular tachycardia Surface echocardiogram revealed a reduction in EF to 45% with an akinetic apex. Cardiology is currently following. Anticipate cardiac catheterization in the near future. 3. Acute kidney injury on chronic kidney disease stage III Clinical suspicion for the prerenal etiology/ischemic ATN related to the patient's acute presentation including decompensated heart failure and aspiration pneumonia. Plan to continue current supportive measures per nephrology recommendations. 4. Diabetes mellitus type 2/Parkinson's disease/elevated liver enzymes/history of gout/advanced age/morbid obesity Complicates care, management, recovery and prognosis. We will continue to monitor blood sugars closely. Metformin will be held given renal dysfunction and probable need for contrast. Recommend continuing Parkinson's medications if possible. This note was generated with [employer] dictation software. It may contain incorrect words, spelling, and punctuation that were not noted in checking the note before signing. Inpatient E&M: [id number] [facility] L[facility]
--- NOTE | 2019-11-19 11:18 | PN.RENAL_ITS ---
Patient Problems: Active and Suspected Problems CHIKA (acute kidney injury) (Acute) Heart failure (Acute) NSTEMI (non-ST elevated myocardial infarction) (Acute) Subjective: events noted remains on hi haroon cannula asking for water - Physical Exam Vitals/I&O's: Vital Signs Temp Pulse Resp BP Pulse Ox 98.6 F 77 22 H 141/75 H 95 11/19/19 05:50 11/19/19 06:51 11/19/19 05:50 11/19/19 05:50 11/19/19 07:20 Oxygen Flow Rate (L/min) 7 Oxygen Delivery Method Nasal Cannula Weight: 99.1 kg Body Mass Index (BMI) 44.6 Intake and Output for Last 24 Hours 11/17/19 11/18/19 11/19/19 23:59 23:59 23:59 Intake Total 513.63 / 513.63 1235.17 / 1280.17 127 / 127 Output Total 2225 / 2225 700 / 700 Balance -1711.37 / -1711.37 535.17 / 580.17 127 / 127 General: Alert, Oriented x3, Cooperative HEENT: Atraumatic, PERRLA, EOMI, Normocephalic Neck: Supple, No JVD, Negative Carotid Bruits Lungs: Wheezes Cardiovascular: Regular rate, No murmurs Abdomen: Bowel Sounds Present, Soft, Non Tender Extremities: No edema, Capillary Refill Less than 3 Seconds Skin: No rashes, No breakdown Musculoskeletal: No Tenderness to Palpation of Joints or Extremities Neurological: Cranial nerves II-XII grossly intact Psych/Mental Status: Normal Affect, Appropriate Microbiology Past 72 Hours 11/15/19 00:00 Sputum, Induced/Lukens Gram Stain - Final 11/15/19 00:00 Sputum, Induced/Lukens Respiratory Culture - Final 11/14/19 20:25 Blood Culture (Wb) - Anticubital Right Blood Culture - Preliminary No growth in 48 hours. 11/14/19 19:15 Blood Culture (Wb) - Anticubital Left Blood Culture - Preliminary No growth in 48 hours. 11/14/19 20:00 Urine Catheter - Catheter Urine Culture - Final Presumptive E. coli Laboratory Results 11/18/19 02:08: Total Creatine Kinase 530 H 11/18/19 11:42: POC Glucose 145 H 11/18/19 16:35: Sodium 152 H, Potassium 3.8, Chloride 117 H, Carbon Dioxide 28.0, Anion Gap 7, BUN 61 H, Creatinine 2.55 H, Estim Creat Clear Calc 19.03, Est GFR (MDRD) Af Amer 32 L, Est GFR (MDRD) Non-Af 26 L, BUN/Creatinine Ratio 23.9 H, Glucose 121 H, Calcium 9.1, Magnesium 2.9 H 11/18/19 16:37: POC Glucose 121 H 11/18/19 16:48: Specimen Type ART, Sample Site L Radial, pH 7.46 H, Bicarbonate Actual 26.6 H, Total CO2 28, Base Excess 3 H, O2 Saturation 93 L, ABG pCO2 37.7, ABG pO2 64 L, O2 Delivery Device Cannula, Liter Flow 7.0 11/18/19 23:51: POC Glucose 136 H 11/19/19 05:10: WBC 8.6, RBC 3.86 L, Hgb 11.7 L, Hct 38.7 L, MCV 100.3 H, MCH 30.3, MCHC 30.2 L, RDW Std Deviation 54.5 H, RDW Coeff of Sammi 14.7 H, Plt Count 205, MPV 11.8, Immature Gran % (Auto) 1.200 H, Neut % (Auto) 79.0 H, Lymph % (Auto) 10.8 L, [place] % (Auto) 8.2, Eos % (Auto) 0.5, Baso % (Auto) 0.3, Absolute Neuts (auto) 6.8, Absolute Lymphs (auto) 0.93, Nucleated RBC % 0 11/19/19 05:10: Sodium 151 H, Potassium 3.6, Chloride 116 H, Carbon Dioxide 29.0, Anion Gap 6, BUN 63 H, Creatinine 2.72 H, Estim Creat Clear Calc 17.84, Est GFR (MDRD) Af Amer 29 L, Est GFR (MDRD) Non-Af 24 L, BUN/Creatinine Ratio 23.2 H, Glucose 119 H, Calcium 9.3 11/19/19 05:56: POC Glucose 126 H Current Medications Acetaminophen (Tylenol) 650 mg PO Q6H PRN PRN PRN Reason: Pain 1-10 or Fever Last Admin: 11/18/19 16:35 Dose: 650 mg Documented by: Albuterol Sulfate (Ventolin Aerosols) 2.5 mg INHALATION Q2H PRN PRN PRN Reason: sob/wheezing Allopurinol (Zyloprim) 100 mg PO DAILYCM [facility] Last Admin: 11/19/19 10:08 Dose: 100 mg Documented by: Aspirin (Aspirin, Baby) 81 mg PO DAILY@0800 [facility] Last Admin: 11/19/19 05:58 Dose: 81 mg Documented by: Atorvastatin Calcium (Lipitor) 40 mg PO QHS [facility] Last Admin: 11/18/19 21:02 Dose: 40 mg Documented by: Brimonidine Tartrate (Brimonidine 0.2% 5ml Bottle) 1 drop EACH EYE BID [facility] Last Admin: 11/19/19 10:08 Dose: 1 drop Documented by: Carbidopa/Levodopa (Sinemet) 2 tablet PO TIDAC [facility] Last Admin: 11/19/19 10:10 Dose: 2 tablet Documented by: Carvedilol (Coreg) 12.5 mg PO BID [facility] Last Admin: 11/19/19 05:58 Dose: 12.5 mg Documented by: Clopidogrel Bisulfate (Plavix) 75 mg PO DAILY [facility] Last Admin: 11/19/19 05:58 Dose: 75 mg Documented by: Dextrose (D50w Syringe) 0 gm IV X1 PRN; Protocol PRN Reason: Hypoglycemia Furosemide (Lasix) 40 mg IV BIDLX [facility] Last Admin: 11/19/19 06:56 Dose: Not Given Documented by: Glucagon () 1 mg IM .X1 PRN PRN Reason: Hypoglycemia Heparin Sodium (Porcine) (Heparin Na) 0 unit IV UD PRN; Protocol PRN Reason: dose adjustment Last Admin: 11/18/19 03:07 Dose: 1,000 unit Documented by: Piperacillin Sod/Tazobactam (Sod 3.375 gm/ Sodium Chloride) 50 mls @ 12.5 mls/hr IV Q12 [facility] Last Admin: 11/19/19 10:07 Dose: 12.5 mls/hr Documented by: Sodium Chloride () 250 mls @ 15 mls/hr IV .[id number] PRN PRN Reason: Saline Flush Last Infusion: 11/19/19 02:50 Dose: 0 mls/hr Documented by: Sodium Chloride () 250 mls @ 15 mls/hr IV .[id number] PRN PRN Reason: Additional IVPB Infusion Dextrose () 1,000 mls @ 75 mls/hr IV .[id number] [facility] Stop: 11/19/19 20:19 Last Admin: 11/19/19 08:09 Dose: 75 mls/hr Documented by: Insulin Human Lispro (Humalog Alexispen (Bkc)) 0 unit SC Q6 [facility]; Protocol Last Admin: 11/19/19 05:59 Dose: Not Given Documented by: Lactobacillus Acidophilus (Acidophilus) 1 tablet PO TID [facility] Last Admin: 11/19/19 05:57 Dose: 1 tablet Documented by: Ondansetron HCl (Zofran) 4 mg IV Q8H PRN PRN PRN Reason: NAUSEA/VOMITING Pantoprazole Sodium (Protonix) 40 mg PO DAILY [facility] Last Admin: 11/19/19 10:10 Dose: 40 mg Documented by: Sodium Chloride () 10 - 40 ml IV UD PRN PRN Reason: SALINE FLUSH Last Admin: 11/18/19 21:00 Dose: 10 ml Documented by: Medical Necessity - Tobacco Use Smoking Status: Former smoker Assessment/Plan All Active Problems Weakness (Acute) Dysuria (Acute) CHIKA (acute kidney injury) (Acute) Heart failure (Acute) NSTEMI (non-ST elevated myocardial infarction) (Acute) 1. 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 Baseline SCr had been around 1.9 mg/dL. CKD is likely due to diabetic nephropathy. CHIKA is likely due to prerenal CHIKA -> ischemic ATN from sepsis and heart failure (cardiorenal syndrome). renal US reviewed cr is slightly higher, likely related to diuresis 2. Severe sepsis. Due to UTI and pneumonia. Clinically improved. Hemodynamically stable 3. Acute hypoxic respiratory failure. remains on O2. CXR from yesterday reviewed. has edema/infiltrates mostly on left side. on exam he is wheezing mostly on left side. ? CT chest. cut back lasix due to worsening renal function 4. Hypernatremia. add D5W today. dw hospitalist service
--- NOTE | 2019-11-19 11:29 | PN_ITS ---
<Michael Gutierrez - Last Filed: 11/19/19 11:29> Patient Problems: Active and Suspected Problems CHIKA (acute kidney injury) (Acute) Heart failure (Acute) NSTEMI (non-ST elevated myocardial infarction) (Acute) Reason for Visit: hypoxic respiratory failure Subjective: Pt denies any cough at all. No fever or chills. He has no significant LE edema. He denies chest pain, pressure, tightness, and palpitations. He had a large BM yesterday. He denies difficulty emptying his bladder. Vitals/I&O's: Vital Signs Temp Pulse Resp BP Pulse Ox 98.6 F 77 22 H 141/75 H 95 11/19/19 05:50 11/19/19 06:51 11/19/19 05:50 11/19/19 05:50 11/19/19 07:20 Oxygen Flow Rate (L/min) 7 Oxygen Delivery Method Nasal Cannula Weight: 218 lb 7.649 oz Body Mass Index (BMI) 44.6 Intake and Output for Last 24 Hours 11/17/19 11/18/19 11/19/19 23:59 23:59 23:59 Intake Total 513.63 / 513.63 1235.17 / 1280.17 127 / 127 Output Total 2225 / 2225 700 / 700 Balance -1711.37 / -1711.37 535.17 / 580.17 127 / 127 General: Alert, Oriented x3, Cooperative HEENT: Atraumatic, PERRLA, EOMI, Normocephalic Neck: Supple, No JVD, Negative Carotid Bruits Lungs: Diminished, Rales Cardiovascular: Regular rate, No murmurs Abdomen: Bowel Sounds Present, Soft, Non Tender, Obese Extremities: No edema, Capillary Refill Less than 3 Seconds Skin: No rashes, No breakdown Musculoskeletal: No Tenderness to Palpation of Joints or Extremities Neurological: Cranial nerves II-XII grossly intact Psych/Mental Status: Normal Affect, Appropriate, Alert and oriented to time, place, person, mood and affect Microbiology Past 72 Hours 11/15/19 00:00 Sputum, Induced/Lukens Gram Stain - Final 11/15/19 00:00 Sputum, Induced/Lukens Respiratory Culture - Final 11/14/19 20:25 Blood Culture (Wb) - Anticubital Right Blood Culture - Preliminary No growth in 48 hours. 11/14/19 19:15 Blood Culture (Wb) - Anticubital Left Blood Culture - Preliminary No growth in 48 hours. 11/14/19 20:00 Urine Catheter - Catheter Urine Culture - Final Presumptive E. coli Laboratory Results 11/18/19 02:08: Total Creatine Kinase 530 H 11/18/19 11:42: POC Glucose 145 H 11/18/19 16:35: Sodium 152 H, Potassium 3.8, Chloride 117 H, Carbon Dioxide 28.0, Anion Gap 7, BUN 61 H, Creatinine 2.55 H, Estim Creat Clear Calc 19.03, Est GFR (MDRD) Af Amer 32 L, Est GFR (MDRD) Non-Af 26 L, BUN/Creatinine Ratio 23.9 H, Glucose 121 H, Calcium 9.1, Magnesium 2.9 H 11/18/19 16:37: POC Glucose 121 H 11/18/19 16:48: Specimen Type ART, Sample Site L Radial, pH 7.46 H, Bicarbonate Actual 26.6 H, Total CO2 28, Base Excess 3 H, O2 Saturation 93 L, ABG pCO2 37.7, ABG pO2 64 L, O2 Delivery Device Cannula, Liter Flow 7.0 11/18/19 23:51: POC Glucose 136 H 11/19/19 05:10: WBC 8.6, RBC 3.86 L, Hgb 11.7 L, Hct 38.7 L, MCV 100.3 H, MCH 30.3, MCHC 30.2 L, RDW Std Deviation 54.5 H, RDW Coeff of Sammi 14.7 H, Plt Count 205, MPV 11.8, Immature Gran % (Auto) 1.200 H, Neut % (Auto) 79.0 H, Lymph % (Auto) 10.8 L, [place] % (Auto) 8.2, Eos % (Auto) 0.5, Baso % (Auto) 0.3, Absolute Neuts (auto) 6.8, Absolute Lymphs (auto) 0.93, Nucleated RBC % 0 11/19/19 05:10: Sodium 151 H, Potassium 3.6, Chloride 116 H, Carbon Dioxide 29.0, Anion Gap 6, BUN 63 H, Creatinine 2.72 H, Estim Creat Clear Calc 17.84, Est GFR (MDRD) Af Amer 29 L, Est GFR (MDRD) Non-Af 24 L, BUN/Creatinine Ratio 23.2 H, Glucose 119 H, Calcium 9.3 11/19/19 05:56: POC Glucose 126 H Current Medications Acetaminophen (Tylenol) 650 mg PO Q6H PRN PRN PRN Reason: Pain 1-10 or Fever Last Admin: 11/18/19 16:35 Dose: 650 mg Documented by: Albuterol Sulfate (Ventolin Aerosols) 2.5 mg INHALATION Q2H PRN PRN PRN Reason: sob/wheezing Allopurinol (Zyloprim) 100 mg PO DAILYCM [facility] Last Admin: 11/19/19 10:08 Dose: 100 mg Documented by: Aspirin (Aspirin, Baby) 81 mg PO DAILY@0800 [facility] Last Admin: 11/19/19 05:58 Dose: 81 mg Documented by: Atorvastatin Calcium (Lipitor) 40 mg PO QHS [facility] Last Admin: 11/18/19 21:02 Dose: 40 mg Documented by: Brimonidine Tartrate (Brimonidine 0.2% 5ml Bottle) 1 drop EACH EYE BID [facility] Last Admin: 11/19/19 10:08 Dose: 1 drop Documented by: Carbidopa/Levodopa (Sinemet) 2 tablet PO TIDAC [facility] Last Admin: 11/19/19 10:10 Dose: 2 tablet Documented by: Carvedilol (Coreg) 12.5 mg PO BID [facility] Last Admin: 11/19/19 05:58 Dose: 12.5 mg Documented by: Clopidogrel Bisulfate (Plavix) 75 mg PO DAILY [facility] Last Admin: 11/19/19 05:58 Dose: 75 mg Documented by: Dextrose (D50w Syringe) 0 gm IV X1 PRN; Protocol PRN Reason: Hypoglycemia Furosemide (Lasix) 40 mg IV BIDLX [facility] Last Admin: 11/19/19 06:56 Dose: Not Given Documented by: Glucagon () 1 mg IM .X1 PRN PRN Reason: Hypoglycemia Heparin Sodium (Porcine) (Heparin Na) 0 unit IV UD PRN; Protocol PRN Reason: dose adjustment Last Admin: 11/18/19 03:07 Dose: 1,000 unit Documented by: Piperacillin Sod/Tazobactam (Sod 3.375 gm/ Sodium Chloride) 50 mls @ 12.5 mls/hr IV Q12 [facility] Last Admin: 11/19/19 10:07 Dose: 12.5 mls/hr Documented by: Sodium Chloride () 250 mls @ 15 mls/hr IV .[id number] PRN PRN Reason: Saline Flush Last Infusion: 11/19/19 02:50 Dose: 0 mls/hr Documented by: Sodium Chloride () 250 mls @ 15 mls/hr IV .[id number] PRN PRN Reason: Additional IVPB Infusion Dextrose () 1,000 mls @ 75 mls/hr IV .[id number] [facility] Stop: 11/19/19 20:19 Last Admin: 11/19/19 08:09 Dose: 75 mls/hr Documented by: Insulin Human Lispro (Humalog Kwikpen (Bkc)) 0 unit SC Q6 [facility]; Protocol Last Admin: 11/19/19 05:59 Dose: Not Given Documented by: Lactobacillus Acidophilus (Acidophilus) 1 tablet PO TID [facility] Last Admin: 11/19/19 05:57 Dose: 1 tablet Documented by: Ondansetron HCl (Zofran) 4 mg IV Q8H PRN PRN PRN Reason: NAUSEA/VOMITING Pantoprazole Sodium (Protonix) 40 mg PO DAILY [facility] Last Admin: 11/19/19 10:10 Dose: 40 mg Documented by: Sodium Chloride () 10 - 40 ml IV UD PRN PRN Reason: SALINE FLUSH Last Admin: 11/18/19 21:00 Dose: 10 ml Documented by: Medical Necessity - Tobacco Use Smoking Status: Former smoker Assessment/Plan All Active Problems Weakness (Acute) Dysuria (Acute) CHIKA (acute kidney injury) (Acute) Heart failure (Acute) NSTEMI (non-ST elevated myocardial infarction) (Acute) 1. NSTEMI - cardiology following. NO CP. Plans for heart cath on hold until renal function stabilizes. Continue aspirin/statin/coreg. NSVT noted on monitor. Mag 2.9, K+ 3.6. 2. Acute hypoxic respiratory failure 2/2 Acute systolic EF CHF, and pneumonia (aspiration)- EF 45% - sodium worse, creatinine increased somewhat. Hold lasix. D5W started. CXR c/w worsening pna on the Left. Discussed with pulmonary medicine - obtain CT chest without contrast today. Oxygen demand did improve to 5lpm via NC from 7 yesterday. MRSA screen was initially negative. Will continue to provide IV zosyn. The patient does not have any cough today. He has no fever or leukocytosis either. He has dysphagia and was started on a thickened liquid diet yesterday. -Respiratory culture is negative. -Blood cx negative x 48 hours -MRSA screen neg -Covid Neg -Urine culture with E coli - pansensitive -urine strep/legionella antigens negative. 3. Severe sepsis - 2/2 pneumonia and UTI - care as per #2. 4. CHIKA - nephrology following. now with worsening sodium and creatinine. Lasix held. Metformin held. 5. Acute rhabdomyolysis - CPK drastically improved. 6. Dysphagia - cookie swallow done this AM. Diet modified. Continue ST. 7. Parkinsons disease - severe debility. PTOT. Will need SNF. 8. Nonsustained Vtach, Hx pAfib with prior ablation - AICD in place. Currently sinus rhythm. Continue Coreg. 9. DMt2 - continue sliding scale insulin. off metformin. DVT ppx: SCDs DC planning: SNF when stable. This patient was seen by Michael Gutierrez PA-C under the supervision of Dr. Bullock. <Aleksandr Bullock - Last Filed: 11/19/19 12:18> Vitals/I&O's: Vital Signs Temp Pulse Resp BP Pulse Ox 99.0 F 78 20 H 130/69 H 93 11/19/19 11:45 11/19/19 11:45 11/19/19 11:45 11/19/19 11:45 11/19/19 11:45 Oxygen Flow Rate (L/min) 4 Oxygen Delivery Method Nasal Cannula Weight: 99.1 kg Body Mass Index (BMI) 44.6 Intake and Output for Last 24 Hours 11/17/19 11/18/19 11/19/19 23:59 23:59 23:59 Intake Total 513.63 / 513.63 1235.17 / 1280.17 127 / 127 Output Total 2225 / 2225 700 / 700 Balance -1711.37 / -1711.37 535.17 / 580.17 127 / 127 Microbiology Past 72 Hours 11/15/19 00:00 Sputum, Induced/Lukens Gram Stain - Final 11/15/19 00:00 Sputum, Induced/Lukens Respiratory Culture - Final 11/14/19 20:25 Blood Culture (Wb) - Anticubital Right Blood Culture - Preliminary No growth in 48 hours. 11/14/19 19:15 Blood Culture (Wb) - Anticubital Left Blood Culture - Preliminary No growth in 48 hours. 11/14/19 20:00 Urine Catheter - Catheter Urine Culture - Final Presumptive E. coli Laboratory Results 11/18/19 02:08: Total Creatine Kinase 530 H 11/18/19 16:35: Sodium 152 H, Potassium 3.8, Chloride 117 H, Carbon Dioxide 28.0, Anion Gap 7, BUN 61 H, Creatinine 2.55 H, Estim Creat Clear Calc 19.03, Es t GFR (MDRD) Af Amer 32 L, Est GFR (MDRD) Non-Af 26 L, BUN/Creatinine Ratio 23.9 H, Glucose 121 H, Calcium 9.1, Magnesium 2.9 H 11/18/19 16:37: POC Glucose 121 H 11/18/19 16:48: Specimen Type ART, Sample Site L Radial, pH 7.46 H, Bicarbonate Actual 26.6 H, Total CO2 28, Base Excess 3 H, O2 Saturation 93 L, ABG pCO2 37.7, ABG pO2 64 L, O2 Delivery Device Cannula, Liter Flow 7.0 11/18/19 23:51: POC Glucose 136 H 11/19/19 05:10: WBC 8.6, RBC 3.86 L, Hgb 11.7 L, Hct 38.7 L, MCV 100.3 H, MCH 30.3, MCHC 30.2 L, RDW Std Deviation 54.5 H, RDW Coeff of Sammi 14.7 H, Plt Count 205, MPV 11.8, Immature Gran % (Auto) 1.200 H, Neut % (Auto) 79.0 H, Lymph % (Auto) 10.8 L, [place] % (Auto) 8.2, Eos % (Auto) 0.5, Baso % (Auto) 0.3, Absolute Neuts (auto) 6.8, Absolute Lymphs (auto) 0.93, Nucleated RBC % 0 11/19/19 05:10: Sodium 151 H, Potassium 3.6, Chloride 116 H, Carbon Dioxide 29.0, Anion Gap 6, BUN 63 H, Creatinine 2.72 H, Estim Creat Clear Calc 17.84, Est GFR (MDRD) Af Amer 29 L, Est GFR (MDRD) Non-Af 24 L, BUN/Creatinine Ratio 23.2 H, Glucose 119 H, Calcium 9.3 11/19/19 05:56: POC Glucose 126 H 11/19/19 12:06: POC Glucose Pending Current Medications Acetaminophen (Tylenol) 650 mg PO Q6H PRN PRN PRN Reason: Pain 1-10 or Fever Last Admin: 11/18/19 16:35 Dose: 650 mg Documented by: Albuterol Sulfate (Ventolin Aerosols) 2.5 mg INHALATION Q2H PRN PRN PRN Reason: sob/wheezing Allopurinol (Zyloprim) 100 mg PO DAILYCM [facility] Last Admin: 11/19/19 10:08 Dose: 100 mg Documented by: Aspirin (Aspirin, Baby) 81 mg PO DAILY@0800 [facility] Last Admin: 11/19/19 05:58 Dose: 81 mg Documented by: Atorvastatin Calcium (Lipitor) 40 mg PO QHS [facility] Last Admin: 11/18/19 21:02 Dose: 40 mg Documented by: Brimonidine Tartrate (Brimonidine 0.2% 5ml Bottle) 1 drop EACH EYE BID [facility] Last Admin: 11/19/19 10:08 Dose: 1 drop Documented by: Carbidopa/Levodopa (Sinemet) 2 tablet PO TIDAC [facility] Last Admin: 11/19/19 10:10 Dose: 2 tablet Documented by: Carvedilol (Coreg) 12.5 mg PO BID [facility] Last Admin: 11/19/19 05:58 Dose: 12.5 mg Documented by: Clopidogrel Bisulfate (Plavix) 75 mg PO DAILY [facility] Last Admin: 11/19/19 05:58 Dose: 75 mg Documented by: Dextrose (D50w Syringe) 0 gm IV X1 PRN; Protocol PRN Reason: Hypoglycemia Furosemide (Lasix) 40 mg IV BIDLX [facility] Last Admin: 11/19/19 06:56 Dose: Not Given Documented by: Glucagon () 1 mg IM .X1 PRN PRN Reason: Hypoglycemia Heparin Sodium (Porcine) (Heparin Na) 0 unit IV UD PRN; Protocol PRN Reason: dose adjustment Last Admin: 11/18/19 03:07 Dose: 1,000 unit Documented by: Piperacillin Sod/Tazobactam (Sod 3.375 gm/ Sodium Chloride) 50 mls @ 12.5 mls/hr IV Q12 [facility] Last Admin: 11/19/19 10:07 Dose: 12.5 mls/hr Documented by: Sodium Chloride () 250 mls @ 15 mls/hr IV .[id number] PRN PRN Reason: Saline Flush Last Infusion: 11/19/19 02:50 Dose: 0 mls/hr Documented by: Sodium Chloride () 250 mls @ 15 mls/hr IV .[id number] PRN PRN Reason: Additional IVPB Infusion Dextrose () 1,000 mls @ 75 mls/hr IV .[id number] [facility] Stop: 11/19/19 20:19 Last Admin: 11/19/19 08:09 Dose: 75 mls/hr Documented by: Insulin Human Lispro (Humalog Kwikpen (Bkc)) 0 unit SC Q6 [facility]; Protocol Last Admin: 11/19/19 05:59 Dose: Not Given Documented by: Lactobacillus Acidophilus (Acidophilus) 1 tablet PO TID [facility] Last Admin: 11/19/19 05:57 Dose: 1 tablet Documented by: Ondansetron HCl (Zofran) 4 mg IV Q8H PRN PRN PRN Reason: NAUSEA/VOMITING Pantoprazole Sodium (Protonix) 40 mg PO DAILY [facility] Last Admin: 11/19/19 10:10 Dose: 40 mg Documented by: Sodium Chloride () 10 - 40 ml IV UD PRN PRN Reason: SALINE FLUSH Last Admin: 11/18/19 21:00 Dose: 10 ml Documented by: STROKE Vital Signs/Narrative: Vital Signs Temp Pulse Resp BP Pulse Ox 11/19/19 11:45 99.0 F 78 20 H 130/69 H 93 Assessment/Plan This patient was seen in conjunction with Michael Gutierrez PA-C . I have independently interviewed and examined the patient and reviewed pertinent historical, laboratory, and other data. Please refer to Michael Gutierrez PA-C note for details of this patient's presentation, findings, and recommendations. I have reviewed Michael Gutierrez PA-C note and concur with documented findings. In brief, patient 24-year-old gentleman with multiple comorbidities admitted with progressive shortness of breath. An assessment of acute hypoxic respiratory failure secondary to combination of CHF pneumonia made admitted for subsequent management. Patient was initially managed on noninvasive ventilation BiPAP however his condition deteriorated resulting in patient being intubated. Weaned off the vent on 11/14/2019. 11/19/2019: Patient seen for kidney function continues to worsen. Sodium levels up to 152 from 146. Patient Lasix held. Started on D5W with serial monitoring of electrolytes ordered Physical Examination: GENERAL: Frail looking HEENT: Atraumatic; EYES; Anicteric, NECK; supple, normal thyroid, RESPIRATORY: Diminished to auscultation CARDIOVASCULAR: Regular S1 S2, GI: soft, normoactive bowel sounds, : No Renal angle tenderness; EXTREMITIES: edema, no clubbing, NEURO: Awake; no lateralizing signs. PSYCH; Flat affect Assessment: 1. Acute hypoxic respiratory failure 2. Severe sepsis secondary to pneumonia with suspected multidrug organisms 3. Non-ST segment elevation [place] 4. Acute kidney injury 5. Acute rhabdomyolysis 6. Acute congestive heart failure with reduced ejection fraction?45% 7. Pulmonary hypertension with pulmonary arterial systolic pressure of 50 to 55 mmHg 8. Parkinson's disease 9. Dysphagia 10. Non Sustained VT 11. Hypernatremia Recommendations: 1. I have discussed the results of my overview and impressions with the patient 2. Options for management were reviewed Inpatient E&M: [id number] [facility] L3
[2019-11-19 12:10] LABS: Bedside Glucose 188 mg/dL (70-110)
[2019-11-19] MEDS: Insulin Lispro 100 UNIT/ML INSULN.PEN SC (12:16)
[2019-11-19] MEDS: 0.9% Saline Lock 10 ML Syringe IV (12:19)
--- NOTE | 2019-11-19 15:40 | CASEMGMT ---
JOSE met with patient and his . SW discussed d/c plan. They have not yet decided on which place. Patient's will talk with their daughter and she will get back with SW tomorrow am. SW gave her SW's card. Ana Cristina MEADE MSW
[2019-11-19 17:05] LABS: Bedside Glucose 126 mg/dL (70-110)
[2019-11-19] MEDS: Atorvastatin Calcium 40 MG Tablet PO (21:59)
[2019-11-20] VITALS (10 sets, daily range): BP systolic 142–151; BP diastolic 71–93; PULSE 63–80; RESP 16–20; TEMP 36.8–36.9; O2SAT 95–97
[2019-11-20 00:41] LABS: Bedside Glucose 120 mg/dL (70-110)
[2019-11-20 05:25] LABS: Absolute Lymphocyte Count 0.92 X10^3/uL (0.83-4.51); Basophil# 0.05 X10^3/uL; Basophil% 0.6 % (0-1); Eosinophil# 0.22 X10^3/uL; Eosinophils% 2.4 % (0-5); Hematocrit 39.8 % (40-54); Hemoglobin 11.8 g/dL (13.0-16.5); Lymphocyte # 0.92 X10^3/ul (4.0); Lymphocyte % 10.2 % (19-41); Mean Corp Hgb Conc 29.6 g/dL (32-36); Mean Corpuscular Hgb 29.7 pg (27.0-32.0); Mean Corpuscular Volume 100.3 fL (80-94); Mean Platelet Vol. 11.4 fl (6.2-12.0); Monocyte# 0.76 X10^3/uL; Monocyte% 8.4 % (0-10); NRBC Flagged by Analyzer 0 % (0-5); Neutrophil # 6.99 X10^3/uL (2.7-7.7); Neutrophil % 77.1 % (47-70); Platelet Count 210 K/mm3 (150-450); RBC Distribution Width CV 14.6 % (11.6-14.6); Red Blood Count 3.97 M/mm3 (4.6-6.2); White Blood Count 9.1 K/mm3 (4.4-11.0)
[2019-11-20 05:47] LABS: ALB/GLOB Ratio 0.5 RATIO (0.9-2.4); AST(SGOT) 43 U/L (15-37); Alanine Aminotransfer ALT/SGPT 37 U/L (16-61); Albumin, Serum 2.3 g/dL (3.2-5.0); Alkaline Phosphatase 101 U/L (45-117); Anion Gap 6 (5-15); BUN 53 mg/dL (7-18); BUN/Creat Ratio 24.5 RATIO (10-20); Calcium,Total 9.1 mg/dL (8.5-10.1); Chloride 116 mmol/L (98-107); Creatinine, Serum 2.16 mg/dL (0.70-1.30); EST Glomerular Filtration Rate 32 mL/min (>60); Est Glom Filt Rate - Afr Amer 38 mL/min (>60); Estimated Creatinine Clearance 22.47 ml/min; Globulin 4.6 g/dL (2.2-4.2); Glucose 126 mg/dL (74-106); Potassium 3.7 mmol/L (3.5-5.1); Protein, Total 6.9 g/dL (6.4-8.2); Sodium Level 150 mmol/L (136-145)
[2019-11-20] MEDS: Carbidopa/Levodopa 25/100 Tablet PO ×3 (06:14→17:13)
[2019-11-20 06:15] LABS: Bedside Glucose 116 mg/dL (70-110)
--- NOTE | 2019-11-20 08:00 | PN_ITS ---
Patient Problems: Active and Suspected Problems CHIKA (acute kidney injury) (Acute) Heart failure (Acute) NSTEMI (non-ST elevated myocardial infarction) (Acute) Subjective: The patient was seen and examined at the bedside this morning. Events from the last 24 hours have been reviewed. The patient is currently afebrile, hemodynamically stable and maintaining appropriate oxygen saturations on 4 L/min via nasal cannula. CT chest did confirm bilateral upper lobe pneumonia. Objective: The patient's most recent lab work, culture data and imaging studies have all been personally reviewed. Surface echocardiogram revealed normal LV size with an ejection fraction of 45% and stage I diastolic dysfunction. Pulmonary artery systolic pressure was estimated to be 50 to 55 mmHg. Urine culture dated November 13 was positive for presumptive E. coli. Strep and urine Legionella antigens were negative. Blood and sputum cultures have shown no growth to date. - Physical Exam Vitals/I&O's: Vital Signs Temp Pulse Resp BP Pulse Ox 98.5 F 74 20 H 151/71 H 97 11/20/19 03:50 11/20/19 07:00 11/20/19 03:50 11/20/19 03:50 11/20/19 03:50 Oxygen Flow Rate (L/min) 4 Oxygen Delivery Method Nasal Cannula Weight: 218 lb 7.649 oz Body Mass Index (BMI) 44.6 Intake and Output for Last 24 Hours 11/18/19 11/19/19 11/20/19 23:59 23:59 23:59 Intake Total 1235.17 / 1280.17 2762 / 2762 168 / 168 Output Total 700 / 700 Balance 535.17 / 580.17 2762 / 2762 168 / 168 General: Alert, Cooperative, - - Sitting in bedside recliner. HEENT: Atraumatic, Normocephalic Oral: No Gingival or Mucosal Lesions/ Ulcerations Neck: Supple, No Nodes, Trachea Midline Lungs: Diminished Cardiovascular: Regular rate, Regular Rhythm Abdomen: Bowel Sounds Present, Soft, Non Tender, Obese Extremities: No clubbing, No cyanosis Skin: No breakdown Musculoskeletal: No Muscle Wasting Lymphatic: No Cervical, Supraclavicular, or Inguinal Adenopathy Neurological: Cranial nerves II-XII grossly intact, Neuro grossly intact Psych/Mental Status: Normal Affect, Appropriate Labs (Last 48 Hours) 11/18/19 11/18/19 11/18/19 02:08 08:48 11:42 WBC RBC Hgb Hct MCV MCH MCHC RDW Std Deviation RDW Coeff of Sammi Plt Count MPV Immature Gran % (Auto) Neut % (Auto) Lymph % (Auto) [place] % (Auto) Eos % (Auto) Baso % (Auto) Absolute Neuts (auto) Absolute Lymphs (auto) Nucleated RBC % APTT 45.1 H Specimen Type Sample Site pH Bicarbonate Actual Total CO2 Base Excess O2 Saturation ABG pCO2 ABG pO2 O2 Delivery Device Liter Flow Sodium Potassium Chloride Carbon Dioxide Anion Gap BUN Creatinine Estim Creat Clear Calc Est GFR (MDRD) Af Amer Est GFR (MDRD) Non-Af BUN/Creatinine Ratio Glucose Calcium Magnesium Total Bilirubin AST ALT Alkaline Phosphatase Total Creatine Kinase 530 H Total Protein Albumin Globulin Albumin/Globulin Ratio POC Glucose 145 H 11/18/19 11/18/19 11/18/19 16:35 16:37 16:48 WBC RBC Hgb Hct MCV MCH MCHC RDW Std Deviation RDW Coeff of Sammi Plt Count MPV Immature Gran % (Auto) Neut % (Auto) Lymph % (Auto) [place] % (Auto) Eos % (Auto) Baso % (Auto) Absolute Neuts (auto) Absolute Lymphs (auto) Nucleated RBC % APTT Specimen Type ART Sample Site L Radial pH 7.46 H Bicarbonate Actual 26.6 H Total CO2 28 Base Excess 3 H O2 Saturation 93 L ABG pCO2 37.7 ABG pO2 64 L O2 Delivery Device Cannula Liter Flow 7.0 Sodium 152 H Potassium 3.8 Chloride 117 H Carbon Dioxide 28.0 Anion Gap 7 BUN 61 H Creatinine 2.55 H Estim Creat Clear Calc 19.03 Est GFR (MDRD) Af Amer 32 L Est GFR (MDRD) Non-Af 26 L BUN/Creatinine Ratio 23.9 H Glucose 121 H Calcium 9.1 Magnesium 2.9 H Total Bilirubin AST ALT Alkaline Phosphatase Total Creatine Kinase Total Protein Albumin Globulin Albumin/Globulin Ratio POC Glucose 121 H 11/18/19 11/19/19 11/19/19 23:51 05:10 05:10 WBC 8.6 RBC 3.86 L Hgb 11.7 L Hct 38.7 L MCV 100.3 H MCH 30.3 MCHC 30.2 L RDW Std Deviation 54.5 H RDW Coeff of Sammi 14.7 H Plt Count 205 MPV 11.8 Immature Gran % (Auto) 1.200 H Neut % (Auto) 79.0 H Lymph % (Auto) 10.8 L [place] % (Auto) 8.2 Eos % (Auto) 0.5 Baso % (Auto) 0.3 Absolute Neuts (auto) 6.8 Absolute Lymphs (auto) 0.93 Nucleated RBC % 0 APTT Specimen Type Sample Site pH Bicarbonate Actual Total CO2 Base Excess O2 Saturation ABG pCO2 ABG pO2 O2 Delivery Device Liter Flow Sodium 151 H Potassium 3.6 Chloride 116 H Carbon Dioxide 29.0 Anion Gap 6 BUN 63 H Creatinine 2.72 H Estim Creat Clear Calc 17.84 Est GFR (MDRD) Af Amer 29 L Est GFR (MDRD) Non-Af 24 L BUN/Creatinine Ratio 23.2 H Glucose 119 H Calcium 9.3 Magnesium Total Bilirubin AST ALT Alkaline Phosphatase Total Creatine Kinase Total Protein Albumin Globulin Albumin/Globulin Ratio POC Glucose 136 H 11/19/19 11/19/19 11/19/19 05:56 12:06 16:56 WBC RBC Hgb Hct MCV MCH MCHC RDW Std Deviation RDW Coeff of Sammi Plt Count MPV Immature Gran % (Auto) Neut % (Auto) Lymph % (Auto) [place] % (Auto) Eos % (Auto) Baso % (Auto) Absolute Neuts (auto) Absolute Lymphs (auto) Nucleated RBC % APTT Specimen Type Sample Site pH Bicarbonate Actual Total CO2 Base Excess O2 Saturation ABG pCO2 ABG pO2 O2 Delivery Device Liter Flow Sodium Potassium Chloride Carbon Dioxide Anion Gap BUN Creatinine Estim Creat Clear Calc Est GFR (MDRD) Af Amer Est GFR (MDRD) Non-Af BUN/Creatinine Ratio Glucose Calcium Magnesium Total Bilirubin AST ALT Alkaline Phosphatase Total Creatine Kinase Total Protein Albumin Globulin Albumin/Globulin Ratio POC Glucose 126 H 188 H 126 H 11/20/19 11/20/19 11/20/19 00:18 04:46 04:46 WBC 9.1 RBC 3.97 L Hgb 11.8 L Hct 39.8 L MCV 100.3 H MCH 29.7 MCHC 29.6 L RDW Std Deviation 54.0 H RDW Coeff of Sammi 14.6 Plt Count 210 MPV 11.4 Immature Gran % (Auto) 1.300 H Neut % (Auto) 77.1 H Lymph % (Auto) 10.2 L [place] % (Auto) 8.4 Eos % (Auto) 2.4 Baso % (Auto) 0.6 Absolute Neuts (auto) 7.0 Absolute Lymphs (auto) 0.92 Nucleated RBC % 0 APTT Specimen Type Sample Site pH Bicarbonate Actual Total CO2 Base Excess O2 Saturation ABG pCO2 ABG pO2 O2 Delivery Device Liter Flow Sodium 150 H Potassium 3.7 Chloride 116 H Carbon Dioxide 28.0 Anion Gap 6 BUN 53 H Creatinine 2.16 H Estim Creat Clear Calc 22.47 Est GFR (MDRD) Af Amer 38 L Est GFR (MDRD) Non-Af 32 L BUN/Creatinine Ratio 24.5 H Glucose 126 H Calcium 9.1 Magnesium Total Bilirubin 0.80 AST 43 H ALT 37 Alkaline Phosphatase 101 Total Creatine Kinase Total Protein 6.9 Albumin 2.3 L Globulin 4.6 H Albumin/Globulin Ratio 0.5 L POC Glucose 120 H 11/20/19 06:07 WBC RBC Hgb Hct MCV MCH MCHC RDW Std Deviation RDW Coeff of Sammi Plt Count MPV Immature Gran % (Auto) Neut % (Auto) Lymph % (Auto) [place] % (Auto) Eos % (Auto) Baso % (Auto) Absolute Neuts (auto) Absolute Lymphs (auto) Nucleated RBC % APTT Specimen Type Sample Site pH Bicarbonate Actual Total CO2 Base Excess O2 Saturation ABG pCO2 ABG pO2 O2 Delivery Device Liter Flow Sodium Potassium Chloride Carbon Dioxide Anion Gap BUN Creatinine Estim Creat Clear Calc Est GFR (MDRD) Af Amer Est GFR (MDRD) Non-Af BUN/Creatinine Ratio Glucose Calcium Magnesium Total Bilirubin AST ALT Alkaline Phosphatase Total Creatine Kinase Total Protein Albumin Globulin Albumin/Globulin Ratio POC Glucose 116 H Microbiology 11/14/19 20:25 Blood Culture (Wb) - Anticubital Right Blood Culture - Final No growth in 5 days. 11/14/19 19:15 Blood Culture (Wb) - Anticubital Left Blood Culture - Final No growth in 5 days. 11/19/19 11:50 Mucosa - Nasopharyngeal Respiratory Panel (PCR) - Final 11/15/19 00:00 Sputum, Induced/Lukens Gram Stain - Final 11/15/19 00:00 Sputum, Induced/Lukens Respiratory Culture - Final Clinical Impression(s) from Imaging Studies Chest X-Ray 11/14/19 19:27 IMPRESSION: Findings consistent with CHF/fluid overload as clinically indicated. More confluent patchy multifocal left pulmonary opacities may indicate an acute infectious or malignant process as clinically indicated. Electronically Signed: Polo Hernandez, at 20:39 EDT Tel , Service support , Chest X-Ray 11/14/19 21:07 IMPRESSION: Endotracheal tube in a satisfactory position. Bilateral patchy and nodular opacities, may be secondary to multifocal pneumonia, cannot exclude a neoplastic process. Electronically Signed: Monica Rosario MD at 21:44 EDT Tel , Service support , Renal Ultrasound 11/17/19 07:36 IMPRESSION: No definite acute abnormalities. Bilateral renal cysts. Possible nonobstructing stone of the left kidney. Electronically Signed: Garrick Fong MD at 20:02 EDT , Service support , Chest X-Ray 11/18/19 13:35 IMPRESSION: Worsening of infiltrate throughout the right lung. Improving infiltrate of the left lung. Electronically Signed: Garrick Fong MD at 19:55 EDT , Service support , Chest CT 11/19/19 11:07 IMPRESSION: 1. Dense bilateral upper lobe pneumonia greater on the left than the right. 2. Small bilateral pleural effusions with some bibasilar atelectasis. 3. Thyroid goiter with substernal extension on the right. 4. Reactive mediastinal lymphadenopathy. Electronically Signed: Rome Dalton MD at 12:20 EDT Tel , Service support , Current Medications Acetaminophen (Tylenol) 650 mg PO Q6H PRN PRN PRN Reason: Pain 1-10 or Fever Last Admin: 11/18/19 16:35 Dose: 650 mg Documented by: Albuterol Sulfate (Ventolin Aerosols) 2.5 mg INHALATION Q2H PRN PRN PRN Reason: sob/wheezing Allopurinol (Zyloprim) 100 mg PO DAILYCM [facility] Last Admin: 11/19/19 10:08 Dose: 100 mg Documented by: Aspirin (Aspirin, Baby) 81 mg PO DAILY@0800 [facility] Last Admin: 11/19/19 05:58 Dose: 81 mg Documented by: Atorvastatin Calcium (Lipitor) 40 mg PO QHS [facility] Last Admin: 11/19/19 21:59 Dose: 40 mg Documented by: Brimonidine Tartrate (Brimonidine 0.2% 5ml Bottle) 1 drop EACH EYE BID [facility] Last Admin: 11/19/19 21:59 Dose: 1 drop Documented by: Carbidopa/Levodopa (Sinemet) 2 tablet PO TIDAC [facility] Last Admin: 11/20/19 06:14 Dose: 2 tablet Documented by: Carvedilol (Coreg) 12.5 mg PO BID [facility] Last Admin: 11/19/19 21:59 Dose: 12.5 mg Documented by: Clopidogrel Bisulfate (Plavix) 75 mg PO DAILY [facility] Last Admin: 11/19/19 05:58 Dose: 75 mg Documented by: Dextrose (D50w Syringe) 0 gm IV X1 PRN; Protocol PRN Reason: Hypoglycemia Furosemide (Lasix) 40 mg IV BIDLX [facility] Last Admin: 11/19/19 06:56 Dose: Not Given Documented by: Glucagon () 1 mg IM .X1 PRN PRN Reason: Hypoglycemia Heparin Sodium (Porcine) (Heparin Na) 0 unit IV UD PRN; Protocol PRN Reason: dose adjustment Last Admin: 11/18/19 03:07 Dose: 1,000 unit Documented by: Piperacillin Sod/Tazobactam (Sod 3.375 gm/ Sodium Chloride) 50 mls @ 12.5 mls/hr IV Q12 [facility] Last Infusion: 11/20/19 01:59 Dose: Infused Documented by: Sodium Chloride () 250 mls @ 15 mls/hr IV .[id number] PRN PRN Reason: Saline Flush Last Infusion: 11/19/19 02:50 Dose: 0 mls/hr Documented by: Sodium Chloride () 250 mls @ 15 mls/hr IV .[id number] PRN PRN Reason: Additional IVPB Infusion Insulin Human Lispro (Humalog Kwikpen (Bkc)) 0 unit SC Q6 [facility]; Protocol Last Admin: 11/20/19 06:18 Dose: Not Given Documented by: Lactobacillus Acidophilus (Acidophilus) 1 tablet PO TID [facility] Last Admin: 11/20/19 06:14 Dose: 1 tablet Documented by: Ondansetron HCl (Zofran) 4 mg IV Q8H PRN PRN PRN Reason: NAUSEA/VOMITING Pantoprazole Sodium (Protonix) 40 mg PO DAILY [facility] Last Admin: 11/19/19 10:10 Dose: 40 mg Documented by: Sodium Chloride () 10 - 40 ml IV UD PRN PRN Reason: SALINE FLUSH Last Admin: 11/19/19 12:19 Dose: 20 ml Documented by: Medical Necessity - Tobacco Use Smoking Status: Former smoker Assessment/Plan All Active Problems Weakness (Acute) Dysuria (Acute) CHIKA (acute kidney injury) (Acute) Heart failure (Acute) NSTEMI (non-ST elevated myocardial infarction) (Acute) RECOMMENDATIONS: 1. Wean supplemental oxygen to maintain saturations at or above 90%. 2. Hold Lasix and continue D5W infusion. 3. Continue empiric antimicrobials. 4. Aspiration precautions with dietary advancement per speech therapy recommendations. 5. Timing of cardiac catheterization per cardiology. 6. Encourage incentive spirometer use and mobilize patient as tolerated. IMPRESSIONS: 1. Acute combined respiratory failure secondary to probable non-ST elevation [place] and aspiration pneumonia Respiratory failure is likely multifactorial in etiology with a component of heart failure and aspiration pneumonia contributing. Plan to continue empiric antimicrobials and diuresis as tolerated by hemodynamics and renal function. Continue to wean supplemental oxygen to maintain saturations at or above 90%. There are tentative plans for cardiac catheterization in the near future. I would recommend continuing aspiration precautions with dietary advancement per speech therapy recommendations. 2. Non-ST elevation [place] with presumed congestive heart failure/nonsustained ventricular tachycardia Surface echocardiogram revealed a reduction in EF to 45% with an akinetic apex. Cardiology is currently following. Anticipate cardiac catheterization in the near future. 3. Acute kidney injury on chronic kidney disease stage III Clinical suspicion for the prerenal etiology/ischemic ATN related to the patient's acute presentation including decompensated heart failure and aspiration pneumonia. Plan to continue current supportive measures per nephrology recommendations. 4. Diabetes mellitus type 2/Parkinson's disease/elevated liver enzymes/history of gout/advanced age/morbid obesity Complicates care, management, recovery and prognosis. We will continue to monitor blood sugars closely. Metformin will be held given renal dysfunction and probable need for contrast. Recommend continuing Parkinson's medications if possible. This note was generated with [employer] dictation software. It may contain incorrect words, spelling, and punctuation that were not noted in checking the note before signing. Inpatient E&M: 94380 Subs Hosp L2
[2019-11-20] MEDS: Pantoprazole Sodium 40 MG Tablet PO (09:03)
[2019-11-20] MEDS: BRIMONIDINE 0.2% 5ML BOTTLE 1 DRP EACH EYE ×2 (09:03→20:45)
[2019-11-20] MEDS: Clopidogrel Bisulfate 75 MG Tablet PO (09:06)
[2019-11-20] MEDS: Carvedilol 12.5 MG Tablet PO ×2 (09:07→20:45)
[2019-11-20] MEDS: Allopurinol 100 MG Tablet PO (09:07)
[2019-11-20] MEDS: Aspirin 81 MG TAB.CHEW PO (09:07)
--- NOTE | 2019-11-20 11:32 | PCM.PN.REN ---
Patient Problems: Active and Suspected Problems CHIKA (acute kidney injury) (Acute) Heart failure (Acute) NSTEMI (non-ST elevated myocardial infarction) (Acute) Subjective: no new complaints - Physical Exam Vitals/I&O's: Vital Signs Temp Pulse Resp BP Pulse Ox 98.3 F 80 18 144/89 H 95 11/20/19 09:00 11/20/19 09:00 11/20/19 09:00 11/20/19 09:00 11/20/19 09:00 Oxygen Flow Rate (L/min) 4 Oxygen Delivery Method Nasal Cannula Weight: 99.1 kg Body Mass Index (BMI) 44.6 Intake and Output for Last 24 Hours 11/18/19 11/19/19 11/20/19 23:59 23:59 23:59 Intake Total 1235.17 / 1280.17 2762 / 2762 168 / 168 Output Total 700 / 700 Balance 535.17 / 580.17 2762 / 2762 168 / 168 General: Alert, Oriented x3, Cooperative HEENT: Atraumatic, PERRLA, EOMI, Normocephalic Neck: Supple, No JVD, Negative Carotid Bruits Lungs: Clear to auscultation, Normal air movement Cardiovascular: Regular rate, No murmurs Abdomen: Bowel Sounds Present, Soft, Non Tender Extremities: No edema, Capillary Refill Less than 3 Seconds Skin: No rashes, No breakdown Musculoskeletal: No Tenderness to Palpation of Joints or Extremities Neurological: Cranial nerves II-XII grossly intact Psych/Mental Status: Normal Affect, Appropriate Microbiology Past 72 Hours 11/14/19 20:25 Blood Culture (Wb) - Anticubital Right Blood Culture - Final No growth in 5 days. 11/14/19 19:15 Blood Culture (Wb) - Anticubital Left Blood Culture - Final No growth in 5 days. 11/19/19 11:50 Mucosa - Nasopharyngeal Respiratory Panel (PCR) - Final 11/15/19 00:00 Sputum, Induced/Lukens Gram Stain - Final 11/15/19 00:00 Sputum, Induced/Lukens Respiratory Culture - Final Laboratory Results 11/19/19 12:06: POC Glucose 188 H 11/19/19 16:56: POC Glucose 126 H 11/20/19 00:18: POC Glucose 120 H 11/20/19 04:46: WBC 9.1, RBC 3.97 L, Hgb 11.8 L, Hct 39.8 L, MCV 100.3 H, MCH 29.7, MCHC 29.6 L, RDW Std Deviation 54.0 H, RDW Coeff of Sammi 14.6, Plt Count 210, MPV 11.4, Immature Gran % (Auto) 1.300 H, Neut % (Auto) 77.1 H, Lymph % (Auto) 10.2 L, [place] % (Auto) 8.4, Eos % (Auto) 2.4, Baso % (Auto) 0.6, Absolute Neuts (auto) 7.0, Absolute Lymphs (auto) 0.92, Nucleated RBC % 0 11/20/19 04:46: Sodium 150 H, Potassium 3.7, Chloride 116 H, Carbon Dioxide 28.0, Anion Gap 6, BUN 53 H, Creatinine 2.16 H, Estim Creat Clear Calc 22.47, Est GFR (MDRD) Af Amer 38 L, Est GFR (MDRD) Non-Af 32 L, BUN/Creatinine Ratio 24.5 H, Glucose 126 H, Calcium 9.1, Total Bilirubin 0.80, AST 43 H, ALT 37, Alkaline Phosphatase 101, Total Protein 6.9, Albumin 2.3 L, Globulin 4.6 H, Albumin/Globulin Ratio 0.5 L 11/20/19 06:07: POC Glucose 116 H Current Medications Acetaminophen (Tylenol) 650 mg PO Q6H PRN PRN PRN Reason: Pain 1-10 or Fever Last Admin: 11/18/19 16:35 Dose: 650 mg Documented by: Albuterol Sulfate (Ventolin Aerosols) 2.5 mg INHALATION Q2H PRN PRN PRN Reason: sob/wheezing Allopurinol (Zyloprim) 100 mg PO DAILYCM [facility] Last Admin: 11/20/19 09:07 Dose: 100 mg Documented by: Aspirin (Aspirin, Baby) 81 mg PO DAILY@0800 [facility] Last Admin: 11/20/19 09:07 Dose: 81 mg Documented by: Atorvastatin Calcium (Lipitor) 40 mg PO QHS [facility] Last Admin: 11/19/19 21:59 Dose: 40 mg Documented by: Brimonidine Tartrate (Brimonidine 0.2% 5ml Bottle) 1 drop EACH EYE BID [facility] Last Admin: 11/20/19 09:03 Dose: 1 drop Documented by: Carbidopa/Levodopa (Sinemet) 2 tablet PO TIDAC [facility] Last Admin: 11/20/19 06:14 Dose: 2 tablet Documented by: Carvedilol (Coreg) 12.5 mg PO BID [facility] Last Admin: 11/20/19 09:07 Dose: 12.5 mg Documented by: Clopidogrel Bisulfate (Plavix) 75 mg PO DAILY [facility] Last Admin: 11/20/19 09:06 Dose: 75 mg Documented by: Dextrose (D50w Syringe) 0 gm IV X1 PRN; Protocol PRN Reason: Hypoglycemia Furosemide (Lasix) 40 mg IV BIDLX [facility] Last Admin: 11/19/19 06:56 Dose: Not Given Documented by: Glucagon () 1 mg IM .X1 PRN PRN Reason: Hypoglycemia Heparin Sodium (Porcine) (Heparin Na) 0 unit IV UD PRN; Protocol PRN Reason: dose adjustment Last Admin: 11/18/19 03:07 Dose: 1,000 unit Documented by: Piperacillin Sod/Tazobactam (Sod 3.375 gm/ Sodium Chloride) 50 mls @ 12.5 mls/hr IV Q12 [facility] Last Admin: 11/20/19 09:12 Dose: 12.5 mls/hr Documented by: Sodium Chloride () 250 mls @ 15 mls/hr IV .[id number] PRN PRN Reason: Saline Flush Last Infusion: 11/19/19 02:50 Dose: 0 mls/hr Documented by: Sodium Chloride () 250 mls @ 15 mls/hr IV .[id number] PRN PRN Reason: Additional IVPB Infusion Insulin Human Lispro (Humalog Kwikpen (Bkc)) 0 unit SC Q6 [facility]; Protocol Last Admin: 11/20/19 06:18 Dose: Not Given Documented by: Lactobacillus Acidophilus (Acidophilus) 1 tablet PO TID [facility] Last Admin: 11/20/19 06:14 Dose: 1 tablet Documented by: Ondansetron HCl (Zofran) 4 mg IV Q8H PRN PRN PRN Reason: NAUSEA/VOMITING Pantoprazole Sodium (Protonix) 40 mg PO DAILY [facility] Last Admin: 11/20/19 09:03 Dose: 40 mg Documented by: Sodium Chloride () 10 - 40 ml IV UD PRN PRN Reason: SALINE FLUSH Last Admin: 11/19/19 12:19 Dose: 20 ml Documented by: Medical Necessity - Tobacco Use Smoking Status: Former smoker Assessment/Plan All Active Problems Weakness (Acute) Dysuria (Acute) CHIKA (acute kidney injury) (Acute) Heart failure (Acute) NSTEMI (non-ST elevated myocardial infarction) (Acute) 1. 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 Baseline SCr had been around 1.9 mg/dL. CKD is likely due to diabetic nephropathy. CHIKA is likely due to prerenal CHIKA -> ischemic ATN from sepsis and heart failure (cardiorenal syndrome). renal US reviewed cr is better 2. Severe sepsis. Due to UTI and pneumonia. Clinically improved. Hemodynamically stable 3. Acute hypoxic respiratory failure. remains on O2. CT reviewed. dense consolidation of both upper lobes. some fluid also likely 4. Hypernatremia. better dw hospitalist service
[2019-11-20 12:21] LABS: Bedside Glucose 131 mg/dL (70-110)
--- NOTE | 2019-11-20 12:43 | PN_ITS ---
<Michael Gutierrez - Last Filed: 11/20/19 12:43> Patient Problems: Active and Suspected Problems CHIKA (acute kidney injury) (Acute) Heart failure (Acute) NSTEMI (non-ST elevated myocardial infarction) (Acute) Reason for Visit: aspiration pna, NSTEMI Subjective: Pt feels overall improved. He denies CP/pressure/palp/lightheadedness. He denies any SOB or cough. No fever/chils. No further LE edema. Vitals/I&O's: Vital Signs Temp Pulse Resp BP Pulse Ox 98.3 F 80 18 144/89 H 95 11/20/19 09:00 11/20/19 09:00 11/20/19 09:00 11/20/19 09:00 11/20/19 09:00 Oxygen Flow Rate (L/min) 4 Oxygen Delivery Method Nasal Cannula Weight: 218 lb 7.649 oz Body Mass Index (BMI) 44.6 Intake and Output for Last 24 Hours 11/18/19 11/19/19 11/20/19 23:59 23:59 23:59 Intake Total 1235.17 / 1280.17 2762 / 2762 168 / 168 Output Total 700 / 700 Balance 535.17 / 580.17 2762 / 2762 168 / 168 General: Alert, Oriented x3, Cooperative HEENT: Atraumatic, PERRLA, EOMI, Normocephalic Neck: Supple, No JVD, Negative Carotid Bruits Lungs: Diminished, Rales - faint rales worse in upper cisneros Cardiovascular: Regular rate, No murmurs Abdomen: Bowel Sounds Present, Soft, Non Tender Extremities: No edema, Capillary Refill Less than 3 Seconds Skin: No rashes, No breakdown Musculoskeletal: No Tenderness to Palpation of Joints or Extremities Neurological: Cranial nerves II-XII grossly intact Psych/Mental Status: Normal Affect, Appropriate, Alert and oriented to time, place, person, mood and affect Microbiology Past 72 Hours 11/14/19 20:25 Blood Culture (Wb) - Anticubital Right Blood Culture - Final No growth in 5 days. 11/14/19 19:15 Blood Culture (Wb) - Anticubital Left Blood Culture - Final No growth in 5 days. 11/19/19 11:50 Mucosa - Nasopharyngeal Respiratory Panel (PCR) - Final 11/15/19 00:00 Sputum, Induced/Lukens Gram Stain - Final 11/15/19 00:00 Sputum, Induced/Lukens Respiratory Culture - Final Laboratory Results 11/19/19 16:56: POC Glucose 126 H 11/20/19 00:18: POC Glucose 120 H 11/20/19 04:46: WBC 9.1, RBC 3.97 L, Hgb 11.8 L, Hct 39.8 L, MCV 100.3 H, MCH 29.7, MCHC 29.6 L, RDW Std Deviation 54.0 H, RDW Coeff of Sammi 14.6, Plt Count 210, MPV 11.4, Immature Gran % (Auto) 1.300 H, Neut % (Auto) 77.1 H, Lymph % (Auto) 10.2 L, Ballard % (Auto) 8.4, Eos % (Auto) 2.4, Baso % (Auto) 0.6, Absolute Neuts (auto) 7.0, Absolute Lymphs (auto) 0.92, Nucleated RBC % 0 11/20/19 04:46: Sodium 150 H, Potassium 3.7, Chloride 116 H, Carbon Dioxide 28.0, Anion Gap 6, BUN 53 H, Creatinine 2.16 H, Estim Creat Clear Calc 22.47, Est GFR (MDRD) Af Amer 38 L, Est GFR (MDRD) Non-Af 32 L, BUN/Creatinine Ratio 24.5 H, Glucose 126 H, Calcium 9.1, Total Bilirubin 0.80, AST 43 H, ALT 37, Alkaline Phosphatase 101, Total Protein 6.9, Albumin 2.3 L, Globulin 4.6 H, Albumin/Globulin Ratio 0.5 L 11/20/19 06:07: POC Glucose 116 H 11/20/19 11:55: POC Glucose 131 H Current Medications Acetaminophen (Tylenol) 650 mg PO Q6H PRN PRN PRN Reason: Pain 1-10 or Fever Last Admin: 11/18/19 16:35 Dose: 650 mg Documented by: Albuterol Sulfate (Ventolin Aerosols) 2.5 mg INHALATION Q2H PRN PRN PRN Reason: sob/wheezing Allopurinol (Zyloprim) 100 mg PO DAILYCM [facility] Last Admin: 11/20/19 09:07 Dose: 100 mg Documented by: Aspirin (Aspirin, Baby) 81 mg PO DAILY@0800 [facility] [place] Last Admin: 11/20/19 09:07 Dose: 81 mg Documented by: Atorvastatin Calcium (Lipitor) 40 mg PO QHS [facility] [place] Last Admin: 11/19/19 21:59 Dose: 40 mg Documented by: Brimonidine Tartrate (Brimonidine 0.2% 5ml Bottle) 1 drop EACH EYE BID [facility] [place] Last Admin: 11/20/19 09:03 Dose: 1 drop Documented by: Carbidopa/Levodopa (Sinemet) 2 tablet PO TIDAC [facility] [place] Last Admin: 11/20/19 11:57 Dose: 2 tablet Documented by: Carvedilol (Coreg) 12.5 mg PO BID [facility] [place] Last Admin: 11/20/19 09:07 Dose: 12.5 mg Documented by: Clopidogrel Bisulfate (Plavix) 75 mg PO DAILY [facility] [place] Last Admin: 11/20/19 09:06 Dose: 75 mg Documented by: Dextrose (D50w Syringe) 0 gm IV X1 PRN; Protocol PRN Reason: Hypoglycemia Furosemide (Lasix) 40 mg IV BIDLX [facility] [place] Last Admin: 11/19/19 06:56 Dose: Not Given Documented by: Glucagon () 1 mg IM .X1 PRN PRN Reason: Hypoglycemia Heparin Sodium (Porcine) (Heparin Na) 0 unit IV UD PRN; Protocol PRN Reason: dose adjustment Last Admin: 11/18/19 03:07 Dose: 1,000 unit Documented by: Piperacillin Sod/Tazobactam (Sod 3.375 gm/ Sodium Chloride) 50 mls @ 12.5 mls/hr IV Q12 [facility] [place] Last Admin: 11/20/19 09:12 Dose: 12.5 mls/hr Documented by: Sodium Chloride () 250 mls @ 15 mls/hr IV .[id number] PRN PRN Reason: Saline Flush Last Infusion: 11/19/19 02:50 Dose: 0 mls/hr Documented by: Sodium Chloride () 250 mls @ 15 mls/hr IV .[id number] PRN PRN Reason: Additional IVPB Infusion Insulin Human Lispro (Humalog Kwikpen (Bkc)) 0 unit SC Q6 [facility] [place]; Protocol Last Admin: 11/20/19 11:56 Dose: Not Given Documented by: Lactobacillus Acidophilus (Acidophilus) 1 tablet PO TID [facility] [place] Last Admin: 11/20/19 06:14 Dose: 1 tablet Documented by: Ondansetron HCl (Zofran) 4 mg IV Q8H PRN PRN PRN Reason: NAUSEA/VOMITING Pantoprazole Sodium (Protonix) 40 mg PO DAILY [facility] Last Admin: 11/20/19 09:03 Dose: 40 mg Documented by: Sodium Chloride () 10 - 40 ml IV UD PRN PRN Reason: SALINE FLUSH Last Admin: 11/19/19 12:19 Dose: 20 ml Documented by: STROKE Vital Signs/Narrative: Vital Signs Temp Pulse Resp BP Pulse Ox 11/20/19 09:00 98.3 F 80 18 144/89 H 95 Medical Necessity - Tobacco Use Smoking Status: Former smoker Assessment/Plan All Active Problems Weakness (Acute) Dysuria (Acute) CHIKA (acute kidney injury) (Acute) Heart failure (Acute) NSTEMI (non-ST elevated myocardial infarction) (Acute) 1. NSTEMI - cardiology following. NO CP. Plans for heart cath on hold until renal function stabilizes. Continue aspirin/statin/coreg. NSVT noted on monitor. Mag 2.9, K+ 3.6. 2. Acute hypoxic respiratory failure 2/2 Acute systolic EF CHF, and pneumonia (aspiration)- EF 45% - sodium worse, creatinine increased somewhat. Hold lasix. D5W started. CXR c/w worsening pna on the Left. CT chest with extensive infiltrates, small effusions. Oxygen demand did improve to 4lpm. MRSA screen was initially negative. Will continue to provide IV zosyn. He has no fever or leukocytosis either. Continue dysphagia diet. -Blood cx negative x 48 hours -MRSA screen neg -Covid Neg -Urine culture with E coli - pansensitive -urine strep/legionella antigens negative. -ID consult. 3. Severe sepsis - 2/2 pneumonia and UTI - care as per #2. 4. CHIKA - nephrology following. improved overnight with Lasix held. Metformin held. 5. Acute rhabdomyolysis - resolved. 6. Dysphagia - cookie swallow done this AM. Diet modified. Continue ST. 7. Parkinsons disease - severe debility. PTOT. Will need SNF. 8. Nonsustained Vtach, Hx pAfib with prior ablation - AICD in place. Currently sinus rhythm. Continue Coreg. 9. DMt2 - continue sliding scale insulin. off metformin. DVT ppx: SCDs DC planning: SNF when stable. This patient was seen by Michael Gutierrez PA-C under the supervision of Dr. Bullock. <Aleksandr Bullock - Last Filed: 11/20/19 14:10> Vitals/I&O's: Vital Signs Temp Pulse Resp BP Pulse Ox 98.3 F 80 18 144/89 H 95 11/20/19 09:00 11/20/19 09:00 11/20/19 09:00 11/20/19 09:00 11/20/19 09:00 Oxygen Flow Rate (L/min) 4 Oxygen Delivery Method Nasal Cannula Weight: 99.1 kg Body Mass Index (BMI) 44.6 Intake and Output for Last 24 Hours 11/18/19 11/19/19 11/20/19 23:59 23:59 23:59 Intake Total 1235.17 / 1280.17 2762 / 2762 218 / 218 Output Total 700 / 700 Balance 535.17 / 580.17 2762 / 2762 218 / 218 Microbiology Past 72 Hours 11/14/19 20:25 Blood Culture (Wb) - Anticubital Right Blood Culture - Final No growth in 5 days. 11/14/19 19:15 Blood Culture (Wb) - Anticubital Left Blood Culture - Final No growth in 5 days. 11/19/19 11:50 Mucosa - Nasopharyngeal Respiratory Panel (PCR) - Final 11/15/19 00:00 Sputum, Induced/Lukens Gram Stain - Final 11/15/19 00:00 Sputum, Induced/Lukens Respiratory Culture - Final Laboratory Results 11/19/19 16:56: POC Glucose 126 H 11/20/19 00:18: POC Glucose 120 H 11/20/19 04:46: WBC 9.1, RBC 3.97 L, Hgb 11.8 L, Hct 39.8 L, MCV 100.3 H, MCH 29.7, MCHC 29.6 L, RDW Std Deviation 54.0 H, RDW Coeff of Sammi 14.6, Plt Count 210, MPV 11.4, Immature Gran % (Auto) 1.300 H, Neut % (Auto) 77.1 H, Lymph % (Auto) 10.2 L, Ballard % (Auto) 8.4, Eos % (Auto) 2.4, Baso % (Auto) 0.6, Absolute Neuts (auto) 7.0, Absolute Lymphs (auto) 0.92, Nucleated RBC % 0 11/20/19 04:46: Sodium 150 H, Potassium 3.7, Chloride 116 H, Carbon Dioxide 28.0, Anion Gap 6, BUN 53 H, Creatinine 2.16 H, Estim Creat Clear Calc 22.47, Est GFR (MDRD) Af Amer 38 L, Est GFR (MDRD) Non-Af 32 L, BUN/Creatinine Ratio 24.5 H, Glucose 126 H, Calcium 9.1, Total Bilirubin 0.80, AST 43 H, ALT 37, Alkaline Phosphatase 101, Total Protein 6.9, Albumin 2.3 L, Globulin 4.6 H, Albumin/Globulin Ratio 0.5 L 11/20/19 06:07: POC Glucose 116 H 11/20/19 11:55: POC Glucose 131 H Current Medications Acetaminophen (Tylenol) 650 mg PO Q6H PRN PRN PRN Reason: Pain 1-10 or Fever Last Admin: 11/18/19 16:35 Dose: 650 mg Documented by: Albuterol Sulfate (Ventolin Aerosols) 2.5 mg INHALATION Q2H PRN PRN PRN Reason: sob/wheezing [facility] Last Admin: 11/20/19 09:07 Dose: 100 mg Documented by: Aspirin (Aspirin, Baby) 81 mg PO DAILY@0800 [facility] Last Admin: 11/20/19 09:07 Dose: 81 mg Documented by: Atorvastatin Calcium (Lipitor) 40 mg PO QHS [facility] [place] Last Admin: 11/19/19 21:59 Dose: 40 mg Documented by: Brimonidine Tartrate (Brimonidine 0.2% 5ml Bottle) 1 drop EACH EYE BID [facility] [place] Last Admin: 11/20/19 09:03 Dose: 1 drop Documented by: Carbidopa/Levodopa (Sinemet) 2 tablet PO TIDAC [facility] [place] Last Admin: 11/20/19 11:57 Dose: 2 tablet Documented by: Carvedilol (Coreg) 12.5 mg PO BID [facility] [place] Last Admin: 11/20/19 09:07 Dose: 12.5 mg Documented by: Clopidogrel Bisulfate (Plavix) 75 mg PO DAILY [facility] [place] Last Admin: 11/20/19 09:06 Dose: 75 mg Documented by: Dextrose (D50w Syringe) 0 gm IV X1 PRN; Protocol PRN Reason: Hypoglycemia Furosemide (Lasix) 40 mg IV BIDLX [facility] Last Admin: 11/19/19 06:56 Dose: Not Given Documented by: Glucagon () 1 mg IM .X1 PRN PRN Reason: Hypoglycemia Heparin Sodium (Porcine) (Heparin Na) 0 unit IV UD PRN; Protocol PRN Reason: dose adjustment Last Admin: 11/18/19 03:07 Dose: 1,000 unit Documented by: Piperacillin Sod/Tazobactam (Sod 3.375 gm/ Sodium Chloride) 50 mls @ 12.5 mls/hr IV Q12 [facility] Last Infusion: 11/20/19 13:19 Dose: Infused Documented by: Sodium Chloride () 250 mls @ 15 mls/hr IV .[id number] PRN PRN Reason: Saline Flush Last Infusion: 11/19/19 02:50 Dose: 0 mls/hr Documented by: Sodium Chloride () 250 mls @ 15 mls/hr IV .[id number] PRN PRN Reason: Additional IVPB Infusion Insulin Human Lispro (Humalog Kwikpen (Bkc)) 0 unit SC Q6 [facility]; Protocol Last Admin: 11/20/19 11:56 Dose: Not Given Documented by: Lactobacillus Acidophilus (Acidophilus) 1 tablet PO TID [facility] [place] Last Admin: 11/20/19 06:14 Dose: 1 tablet Documented by: Ondansetron HCl (Zofran) 4 mg IV Q8H PRN PRN PRN Reason: NAUSEA/VOMITING Pantoprazole Sodium (Protonix) 40 mg PO DAILY [facility] [place] Last Admin: 11/20/19 09:03 Dose: 40 mg Documented by: Saliva Substitute (Biotene) 15 ml MM 5X/DAY PRN PRN Reason: DRY MOUTH Sodium Chloride () 10 - 40 ml IV UD PRN PRN Reason: SALINE FLUSH Last Admin: 11/19/19 12:19 Dose: 20 ml Documented by: Assessment/Plan This patient was seen in conjunction with Michael Gutierrez PA-C . I have independently interviewed and examined the patient and reviewed pertinent historical, laboratory, and other data. Please refer to Michael Gutierrez PA-C note for details of this patient's presentation, findings, and recommendations. I have reviewed Michael Gutierrez PA-C note and concur with documented findings. In brief, patient 24-year-old gentleman with multiple comorbidities admitted with progressive shortness of breath. An assessment of acute hypoxic respiratory failure secondary to combination of CHF pneumonia made admitted for subsequent management. Patient was initially managed on noninvasive ventilation BiPAP however his condition deteriorated resulting in patient being intubated. Weaned off the vent on 11/14/2019. 11/19/2019: Patient seen for kidney function continues to worsen. Sodium levels up to 152 from 146. Patient Lasix held. Started on D5W with serial monitoring of electrolytes ordered 11/20/2019: Patient seen sodium level still remain elevated, however there is been slight improvement in kidney function. Plan is for patient to undergo left heart catheterization pending kidney function improvement Physical Examination: GENERAL: Frail looking HEENT: Atraumatic; EYES; Anicteric, NECK; supple, normal thyroid, RESPIRATORY: Diminished to auscultation CARDIOVASCULAR: Regular S1 S2, GI: soft, normoactive bowel sounds, : No Renal angle tenderness; EXTREMITIES: edema, no clubbing, NEURO: Awake; no lateralizing signs. PSYCH; Flat affect Assessment: 1. Acute hypoxic respiratory failure 2. Severe sepsis secondary to pneumonia with suspected multidrug organisms 3. Non-ST segment elevation IA 4. Acute kidney injury 5. Acute rhabdomyolysis 6. Acute congestive heart failure with reduced ejection fraction?45% 7. Pulmonary hypertension with pulmonary arterial systolic pressure of 50 to 55 mmHg 8. Parkinson's disease 9. Dysphagia 10. Non Sustained VT 11. Hypernatremia Recommendations: 1. I have discussed the results of my overview and impressions with the patient 2. Options for management were reviewed Inpatient E&M: [id number] [facility] Hosp L2
--- NOTE | 2019-11-20 13:32 | CASEMGMT ---
JOSE spoke with patient and his . They decided on [facility]. JOSE told them JOSE will work on making referral. JOSE called [facility] and spoke with Deya regarding referral and also faxed referral. Await response from [facility]. Ana Cristina MEADE MSW
[2019-11-20] MEDS: Saliva Substitute 237 ML BOTTLE 15 ML MM (14:23)
--- NOTE | 2019-11-20 17:01 | PCM.HP.ID ---
Problem List (1) Aspiration pneumonia Status: Acute Reason for Consult: pneumonia Consulted by: Dr. Bullock History of Present Illness: The patient is a 74 year old M with CKD, parkinson, presented 11/13 with altered mental status, dyspnea, recent dysuria. Intubated in ED, admitted to [facility] on zosyn. Dx with NSTEMI, CHF, CHIKA on CKD, and aspiration pneumonia. Now off vent, feeling better, no sputum, no abd pain, no rash. Full ROS performed and neg except as noted above. - Medical History Past Medical History (Chronic Problems): Chronic Problems CKD (chronic kidney disease) (Chronic) Parkinson disease (Chronic) Diabetes (Chronic) Allergies/Adverse Reactions: Allergies No Known Allergies Allergy (Verified 04/09/19 13:14) Home Medications: Ambulatory Orders Medication Instructions Recorded Allopurinol [Zyloprim] 100 mg PO BIDCM 12/04/17 Amlodipine Besylate [Norvasc] 10 mg PO DAILY 12/04/17 Aspirin E.C. [Ecotrin] 81 mg PO DAILY@0800 12/04/17 Carbidopa/Levodopa [Carbidopa-Levo 2 each PO TID 12/04/17 25-100 mg Odt] Docusate Sodium [Colace] 200 mg PO DAILY 12/04/17 Esomeprazole Magnesium 40 mg PO DAILY 12/04/17 Fluticasone 110 Mcg [Flovent 110 1 puff INHALATION BID 12/04/17 Mcg] Metformin HCl 500 mg PO DAILY 12/04/17 Metoprolol Succinate [Toprol Xl] 50 mg PO DAILY 12/04/17 Multivit-Min/Folic/Vit K/Lycop 1 each PO DAILY 12/04/17 [One-A-Day Men's 50 Plus Tablet] [place]-3 Fatty Acids/Fish Oil [Fish 1 each PO DAILY 12/04/17 Oil 1,000 mg Capsule] Brimonidine Tartrate 0.2% 1 drop OPHTHALMIC BID 12/05/17 [Brimonidine 0.2% 5Ml Bottle] Furosemide 40 mg PO DAILY 04/09/19 Garlic 500 mg PO DAILY 04/09/19 - Social History SMOKING STATUS:: Former smoker Vital Signs Temp Pulse Resp BP Pulse Ox 98.2 F 68 16 142/93 H 97 11/20/19 14:27 11/20/19 15:02 11/20/19 14:27 11/20/19 14:27 11/20/19 14:27 Oxygen Flow Rate (L/min) 3 Oxygen Delivery Method Nasal Cannula Weight: 99.1 kg Body Mass Index (BMI) 44.6 Microbiology Past 72 Hours 11/14/19 20:25 Blood Culture - Final Blood Culture (Wb) - Anticubital Right No growth in 5 days. 11/14/19 19:15 Blood Culture - Final Blood Culture (Wb) - Anticubital Left No growth in 5 days. 11/19/19 11:50 Respiratory Panel (PCR) - Final Mucosa - Nasopharyngeal 11/15/19 00:00 Gram Stain - Final Sputum, Induced/Lukens Respiratory Culture - Final Laboratory Tests Past 24 Hrs 11/20/19 11/20/19 04:46 04:46 WBC 9.1 RBC 3.97 L Hgb 11.8 L Hct 39.8 L MCV 100.3 H MCH 29.7 MCHC 29.6 L RDW Std Deviation 54.0 H RDW Coeff of Sammi 14.6 Plt Count 210 MPV 11.4 Immature Gran % (Auto) 1.300 H Neut % (Auto) 77.1 H Lymph % (Auto) 10.2 L Turner % (Auto) 8.4 Eos % (Auto) 2.4 Baso % (Auto) 0.6 Absolute Neuts (auto) 7.0 Absolute Lymphs (auto) 0.92 Nucleated RBC % 0 Sodium 150 H Potassium 3.7 Chloride 116 H Carbon Dioxide 28.0 Anion Gap 6 BUN 53 H Creatinine 2.16 H Estim Creat Clear Calc 22.47 Est GFR (MDRD) Af Amer 38 L Est GFR (MDRD) Non-Af 32 L BUN/Creatinine Ratio 24.5 H Glucose 126 H Calcium 9.1 Total Bilirubin 0.80 AST 43 H ALT 37 Alkaline Phosphatase 101 Total Protein 6.9 Albumin 2.3 L Globulin 4.6 H Albumin/Globulin Ratio 0.5 L - Other Studies Radiology: [] reviewed Other Studies: [] Route of nutrition/ use of supplements: [] Nutritional Intake: [] IV Site: [] Barker Catheter: [] - Physical Exam General: Alert, Cooperative, No apparent distress HEENT: Atraumatic, PERRLA, EOMI Neck: Supple, No Nodes Lungs: Rales, Rhonchi - worse in R base Cardiovascular: Regular rate, Regular Rhythm Abdomen: Soft, Non Tender, Non-Distended Extremities: Edema Skin: No rashes IV Site: Peripheral, without redness Musculoskeletal: No Tenderness to Palpation of Joints or Extremities Neurological: Cranial nerves II-XII grossly intact - Assessment/Plan Antibiotics: [] Assessment/Plan: [] Active and Suspected Problems CHIKA (acute kidney injury) (Acute) Heart failure (Acute) NSTEMI (non-ST elevated myocardial infarction) (Acute) No fever, wbc normal, O2 improving. Ongoing infiltrate on chest imaging, may be related to ongoing aspiration episodes prior to being made NPO. Sputum cx showed mixed oral isidra but 4+ wbc. Ucx with 11-25k ecoli. CHIKA improving. Feeling better. Would continue zosyn for now. Will follow, thank you, d/w primary team.
[2019-11-20 18:01] LABS: Bedside Glucose 113 mg/dL (70-110)
[2019-11-20] MEDS: Atorvastatin Calcium 40 MG Tablet PO (20:45)
[2019-11-20] MEDS: hydrALAZINE 25 MG Tablet PO (20:45)
--- NOTE | 2019-11-20 20:51 | NURSING ---
Pt requested 0 meds early, given early as requested at 2049. Stevan, RN
[2019-11-21] VITALS (12 sets, daily range): BP systolic 120–153; BP diastolic 68–86; PULSE 64–73; RESP 16–20; TEMP 36.6–36.9; O2SAT 93–97
[2019-11-21 00:10] LABS: Bedside Glucose 116 mg/dL (70-110)
--- NOTE | 2019-11-21 03:36 | NURSING ---
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 Hourly rounds were completed, if pt was awake drink was given. Pt needed lots of cues and reminding of ST recommendations of small sips, tucking chin before swallowing and doing a double swallow. Despite education and cues pt continued to attempt larger sips than recommended and had occasional coughing. Attempted to limit size of sips and give pt larger breaks between drinks of water or juice. Pt unhappy with this arrangement. Will continue to educate and give cues. Stevan, RN
[2019-11-21 06:01] LABS: Absolute Lymphocyte Count 1.02 X10^3/uL (0.83-4.51); Absolute Neutrophil Count 7.2 X10^3/uL (2.0-7.7); Basophil# 0.03 X10^3/uL; Basophil% 0.3 % (0-1); Eosinophil# 0.25 X10^3/uL; Eosinophils% 2.7 % (0-5); Hematocrit 38.7 % (40-54); Hemoglobin 11.7 g/dL (13.0-16.5); Lymphocyte # 1.02 X10^3/ul (4.0); Lymphocyte % 11.1 % (19-41); Mean Corp Hgb Conc 30.2 g/dL (32-36); Mean Corpuscular Hgb 29.8 pg (27.0-32.0); Mean Corpuscular Volume 98.5 fL (80-94); Mean Platelet Vol. 11.5 fl (6.2-12.0); Monocyte# 0.62 X10^3/uL; Monocyte% 6.7 % (0-10); NRBC Flagged by Analyzer 0 % (0-5); Neutrophil # 7.15 X10^3/uL (2.7-7.7); Neutrophil % 77.7 % (47-70); Platelet Count 218 K/mm3 (150-450); RBC Distribution Width CV 13.9 % (11.6-14.6); RBC Distribution Width SD 50.5 fl (35.1-43.9); Red Blood Count 3.93 M/mm3 (4.6-6.2); White Blood Count 9.2 K/mm3 (4.4-11.0)
[2019-11-21] MEDS: hydrALAZINE 25 MG Tablet PO ×3 (06:15→21:09)
[2019-11-21] MEDS: Carbidopa/Levodopa 25/100 Tablet PO ×3 (06:16→17:17)
[2019-11-21 06:34] LABS: ALB/GLOB Ratio 0.5 RATIO (0.9-2.4); AST(SGOT) 30 U/L (15-37); Alanine Aminotransfer ALT/SGPT 27 U/L (16-61); Albumin, Serum 2.2 g/dL (3.2-5.0); Alkaline Phosphatase 90 U/L (45-117); Anion Gap 6 (5-15); BUN 43 mg/dL (7-18); BUN/Creat Ratio 22.3 RATIO (10-20); Calcium,Total 8.9 mg/dL (8.5-10.1); Chloride 112 mmol/L (98-107); Creatinine, Serum 1.93 mg/dL (0.70-1.30); EST Glomerular Filtration Rate 36 mL/min (>60); Est Glom Filt Rate - Afr Amer 44 mL/min (>60); Estimated Creatinine Clearance 25.15 ml/min; Globulin 4.2 g/dL (2.2-4.2); Glucose 128 mg/dL (74-106); Potassium 3.7 mmol/L (3.5-5.1); Protein, Total 6.4 g/dL (6.4-8.2); Sodium Level 146 mmol/L (136-145)
[2019-11-21 06:40] LABS: Bedside Glucose 126 mg/dL (70-110)
--- NOTE | 2019-11-21 07:15 | PN_ITS ---
Patient Problems: Active and Suspected Problems CHIKA (acute kidney injury) (Acute) Heart failure (Acute) NSTEMI (non-ST elevated myocardial infarction) (Acute) Aspiration pneumonia (Acute) Subjective: The patient was seen and examined at the bedside this morning. Events from the last 24 hours have been reviewed. The patient is currently afebrile, hemodynamically stable and maintaining appropriate oxygen saturations on 3 L/min via nasal cannula. Sodium is improved this morning to 146. Creatinine is improving as well. Objective: The patient's most recent lab work, culture data and imaging studies have all been personally reviewed. Surface echocardiogram revealed normal LV size with an ejection fraction of 45% and stage I diastolic dysfunction. Pulmonary artery systolic pressure was estimated to be 50 to 55 mmHg. Urine culture dated November 13 was positive for presumptive E. coli. Strep and urine Legionella antigens were negative. Blood and sputum cultures have shown no growth to date. - Physical Exam Vitals/I&O's: Vital Signs Temp Pulse Resp BP Pulse Ox 98.1 F 73 17 153/68 H 96 11/21/19 02:40 11/21/19 06:15 11/21/19 02:40 11/21/19 06:15 11/21/19 02:40 Oxygen Flow Rate (L/min) 3 Oxygen Delivery Method Nasal Cannula Weight: 218 lb 14.704 oz Body Mass Index (BMI) 44.6 Intake and Output for Last 24 Hours 11/19/19 11/20/19 11/21/19 23:59 23:59 23:59 Intake Total 2762 / 2762 218 / 218 530 / 530 Balance 2762 / 2762 218 / 218 530 / 530 General: Alert, Cooperative, No apparent distress HEENT: Atraumatic, PERRLA, Normocephalic Oral: No Gingival or Mucosal Lesions/ Ulcerations Neck: Supple, No Nodes, Trachea Midline Lungs: Diminished Cardiovascular: Regular rate, Regular Rhythm Abdomen: Bowel Sounds Present, Soft, Obese Extremities: No clubbing, No cyanosis, No edema Skin: No breakdown Musculoskeletal: No Muscle Wasting Lymphatic: No Cervical, Supraclavicular, or Inguinal Adenopathy Neurological: Cranial nerves II-XII grossly intact, Neuro grossly intact Psych/Mental Status: Normal Affect, Appropriate Labs (Last 48 Hours) 11/18/19 11/19/19 11/19/19 16:35 12:06 16:56 WBC RBC Hgb Hct MCV MCH MCHC RDW Std Deviation RDW Coeff of Sammi Plt Count MPV Immature Gran % (Auto) Neut % (Auto) Lymph % (Auto) Mcpherson % (Auto) Eos % (Auto) Baso % (Auto) Absolute Neuts (auto) Absolute Lymphs (auto) Nucleated RBC % Sodium 152 H Potassium 3.8 Chloride 117 H Carbon Dioxide 28.0 Anion Gap 7 BUN 61 H Creatinine 2.55 H Estim Creat Clear Calc 19.03 Est GFR (MDRD) Af Amer 32 L Est GFR (MDRD) Non-Af 26 L BUN/Creatinine Ratio 23.9 H Glucose 121 H Calcium 9.1 Magnesium 2.9 H Total Bilirubin AST ALT Alkaline Phosphatase Total Protein Albumin Globulin Albumin/Globulin Ratio POC Glucose 188 H 126 H 11/20/19 11/20/19 11/20/19 00:18 04:46 04:46 WBC 9.1 RBC 3.97 L Hgb 11.8 L Hct 39.8 L MCV 100.3 H MCH 29.7 MCHC 29.6 L RDW Std Deviation 54.0 H RDW Coeff of Sammi 14.6 Plt Count 210 MPV 11.4 Immature Gran % (Auto) 1.300 H Neut % (Auto) 77.1 H Lymph % (Auto) 10.2 L Mcpherson % (Auto) 8.4 Eos % (Auto) 2.4 Baso % (Auto) 0.6 Absolute Neuts (auto) 7.0 Absolute Lymphs (auto) 0.92 Nucleated RBC % 0 Sodium 150 H Potassium 3.7 Chloride 116 H Carbon Dioxide 28.0 Anion Gap 6 BUN 53 H Creatinine 2.16 H Estim Creat Clear Calc 22.47 Est GFR (MDRD) Af Amer 38 L Est GFR (MDRD) Non-Af 32 L BUN/Creatinine Ratio 24.5 H Glucose 126 H Calcium 9.1 Magnesium Total Bilirubin 0.80 AST 43 H ALT 37 Alkaline Phosphatase 101 Total Protein 6.9 Albumin 2.3 L Globulin 4.6 H Albumin/Globulin Ratio 0.5 L POC Glucose 120 H 11/20/19 11/20/19 11/20/19 06:07 11:55 17:12 WBC RBC Hgb Hct MCV MCH MCHC RDW Std Deviation RDW Coeff of Sammi Plt Count MPV Immature Gran % (Auto) Neut % (Auto) Lymph % (Auto) [place]pherson % (Auto) Eos % (Auto) Baso % (Auto) Absolute Neuts (auto) Absolute Lymphs (auto) Nucleated RBC % Sodium Potassium Chloride Carbon Dioxide Anion Gap BUN Creatinine Estim Creat Clear Calc Est GFR (MDRD) Af Amer Est GFR (MDRD) Non-Af BUN/Creatinine Ratio Glucose Calcium Magnesium Total Bilirubin AST ALT Alkaline Phosphatase Total Protein Albumin Globulin Albumin/Globulin Ratio POC Glucose 116 H 131 H 113 H 11/20/19 11/21/19 11/21/19 23:58 05:27 05:27 WBC 9.2 RBC 3.93 L Hgb 11.7 L Hct 38.7 L MCV 98.5 H MCH 29.8 MCHC 30.2 L RDW Std Deviation 50.5 H RDW Coeff of Sammi 13.9 Plt Count 218 MPV 11.5 Immature Gran % (Auto) 1.500 H Neut % (Auto) 77.7 H Lymph % (Auto) 11.1 L Mcpherson % (Auto) 6.7 Eos % (Auto) 2.7 Baso % (Auto) 0.3 Absolute Neuts (auto) 7.2 Absolute Lymphs (auto) 1.02 Nucleated RBC % 0 Sodium 146 H Potassium 3.7 Chloride 112 H Carbon Dioxide 28.0 Anion Gap 6 BUN 43 H Creatinine 1.93 H Estim Creat Clear Calc 25.15 Est GFR (MDRD) Af Amer 44 L Est GFR (MDRD) Non-Af 36 L BUN/Creatinine Ratio 22.3 H Glucose 128 H Calcium 8.9 Magnesium Total Bilirubin 0.70 AST 30 ALT 27 Alkaline Phosphatase 90 Total Protein 6.4 Albumin 2.2 L Globulin 4.2 Albumin/Globulin Ratio 0.5 L POC Glucose 116 H 11/21/19 06:12 WBC RBC Hgb Hct MCV MCH MCHC RDW Std Deviation RDW Coeff of Sammi Plt Count MPV Immature Gran % (Auto) Neut % (Auto) Lymph % (Auto) [place]pherson % (Auto) Eos % (Auto) Baso % (Auto) Absolute Neuts (auto) Absolute Lymphs (auto) Nucleated RBC % Sodium Potassium Chloride Carbon Dioxide Anion Gap BUN Creatinine Estim Creat Clear Calc Est GFR (MDRD) Af Amer Est GFR (MDRD) Non-Af BUN/Creatinine Ratio Glucose Calcium Magnesium Total Bilirubin AST ALT Alkaline Phosphatase Total Protein Albumin Globulin Albumin/Globulin Ratio POC Glucose 126 H Microbiology 11/14/19 20:25 Blood Culture (Wb) - Anticubital Right Blood Culture - Final No growth in 5 days. 11/14/19 19:15 Blood Culture (Wb) - Anticubital Left Blood Culture - Final No growth in 5 days. 11/19/19 11:50 Mucosa - Nasopharyngeal Respiratory Panel (PCR) - Final Clinical Impression(s) from Imaging Studies Chest X-Ray 11/14/19 19:27 IMPRESSION: Findings consistent with CHF/fluid overload as clinically indicated. More confluent patchy multifocal left pulmonary opacities may indicate an acute infectious or malignant process as clinically indicated. Electronically Signed: Polo Hernandez, at 20:39 EDT Tel , Service support , Chest X-Ray 11/14/19 21:07 IMPRESSION: Endotracheal tube in a satisfactory position. Bilateral patchy and nodular opacities, may be secondary to multifocal pneumonia, cannot exclude a neoplastic process. Electronically Signed: Monica Rosario MD at 21:44 EDT Tel , Service support , Renal Ultrasound 11/17/19 07:36 IMPRESSION: No definite acute abnormalities. Bilateral renal cysts. Possible nonobstructing stone of the left kidney. Electronically Signed: Garrick Fong MD at 20:02 EDT , Service support , Chest X-Ray 11/18/19 13:35 IMPRESSION: Worsening of infiltrate throughout the right lung. Improving infiltrate of the left lung. Electronically Signed: Garrick Fong MD at 19:55 EDT , Service support , Chest CT 11/19/19 11:07 IMPRESSION: 1. Dense bilateral upper lobe pneumonia greater on the left than the right. 2. Small bilateral pleural effusions with some bibasilar atelectasis. 3. Thyroid goiter with substernal extension on the right. 4. Reactive mediastinal lymphadenopathy. Electronically Signed: Rome Dalton MD at 12:20 EDT Tel , Service support , Current Medications Acetaminophen (Tylenol) 650 mg PO Q6H PRN PRN PRN Reason: Pain 1-10 or Fever Last Admin: 11/18/19 16:35 Dose: 650 mg Documented by: Albuterol Sulfate (Ventolin Aerosols) 2.5 mg INHALATION Q2H PRN PRN PRN Reason: sob/wheezing Allopurinol (Zyloprim) 100 mg PO DAILYCM [facility] Last Admin: 11/20/19 09:07 Dose: 100 mg Documented by: Aspirin (Aspirin, Baby) 81 mg PO DAILY@0800 [facility] Last Admin: 11/20/19 09:07 Dose: 81 mg Documented by: Atorvastatin Calcium (Lipitor) 40 mg PO QHS [facility] Last Admin: 11/20/19 20:45 Dose: 40 mg Documented by: Brimonidine Tartrate (Brimonidine 0.2% 5ml Bottle) 1 drop EACH EYE BID [facility] Last Admin: 11/20/19 20:45 Dose: 1 drop Documented by: Carbidopa/Levodopa (Sinemet) 2 tablet PO TIDAC [facility] Last Admin: 11/21/19 06:16 Dose: 2 tablet Documented by: Carvedilol (Coreg) 12.5 mg PO BID [facility] Last Admin: 11/20/19 20:45 Dose: 12.5 mg Documented by: Clopidogrel Bisulfate (Plavix) 75 mg PO DAILY [facility] Last Admin: 11/20/19 09:06 Dose: 75 mg Documented by: Dextrose (D50w Syringe) 0 gm IV X1 PRN; Protocol PRN Reason: Hypoglycemia Furosemide (Lasix) 40 mg IV BIDLX [facility] Last Admin: 11/19/19 06:56 Dose: Not Given Documented by: Glucagon () 1 mg IM .X1 PRN PRN Reason: Hypoglycemia Heparin Sodium (Porcine) (Heparin Na) 0 unit IV UD PRN; Protocol PRN Reason: dose adjustment Last Admin: 11/18/19 03:07 Dose: 1,000 unit Documented by: Hydralazine HCl (Apresoline) 25 mg PO TID [facility] Last Admin: 11/21/19 06:15 Dose: 25 mg Documented by: Piperacillin Sod/Tazobactam (Sod 3.375 gm/ Sodium Chloride) 50 mls @ 12.5 mls/hr IV Q12 [facility] Last Infusion: 11/21/19 02:27 Dose: Infused Documented by: Sodium Chloride () 250 mls @ 15 mls/hr IV .[id number] PRN PRN Reason: Saline Flush Last Infusion: 11/19/19 02:50 Dose: 0 mls/hr Documented by: Sodium Chloride () 250 mls @ 15 mls/hr IV .[id number] PRN PRN Reason: Additional IVPB Infusion Insulin Human Lispro (Humalog Kwikpen (Bkc)) 0 unit SC Q6 [facility]; Protocol Last Admin: 11/21/19 06:16 Dose: Not Given Documented by: Lactobacillus Acidophilus (Acidophilus) 1 tablet PO TID [facility] Last Admin: 11/21/19 06:15 Dose: 1 tablet Documented by: Ondansetron HCl (Zofran) 4 mg IV Q8H PRN PRN PRN Reason: NAUSEA/VOMITING Pantoprazole Sodium (Protonix) 40 mg PO DAILY [facility] Last Admin: 11/20/19 09:03 Dose: 40 mg Documented by: Saliva Substitute (Biotene) 15 ml MM 5X/DAY PRN PRN Reason: DRY MOUTH Last Admin: 11/20/19 14:23 Dose: 15 ml Documented by: Sodium Chloride () 10 - 40 ml IV UD PRN PRN Reason: SALINE FLUSH Last Admin: 11/19/19 12:19 Dose: 20 ml Documented by: Medical Necessity - Tobacco Use Smoking Status: Former smoker Assessment/Plan All Active Problems Weakness (Acute) Dysuria (Acute) CHIKA (acute kidney injury) (Acute) Heart failure (Acute) NSTEMI (non-ST elevated myocardial infarction) (Acute) Aspiration pneumonia (Acute) RECOMMENDATIONS: 1. Wean supplemental oxygen to maintain saturations at or above 90%. 2. Continue antimicrobials per ID recommendations. 3. Aspiration precautions with dietary advancement per speech therapy recommendations. 4. Timing of cardiac catheterization per cardiology. 5. Encourage incentive spirometer use and mobilize patient as tolerated. IMPRESSIONS: 1. Acute combined respiratory failure secondary to probable non-ST elevation ID and aspiration pneumonia Respiratory failure is likely multifactorial in etiology with a component of heart failure and aspiration pneumonia contributing. Plan to continue empiric antimicrobials and diuresis as tolerated by hemodynamics and renal function. Continue to wean supplemental oxygen to maintain saturations at or above 90%. There are tentative plans for cardiac catheterization in the near future. I would recommend continuing aspiration precautions with dietary advancement per speech therapy recommendations. 2. Non-ST elevation ID with presumed congestive heart failure/nonsustained ventricular tachycardia Surface echocardiogram revealed a reduction in EF to 45% with an akinetic apex. Cardiology is currently following. Anticipate cardiac catheterization in the near future. 3. Acute kidney injury on chronic kidney disease stage III Clinical suspicion for the prerenal etiology/ischemic ATN related to the patient's acute presentation including decompensated heart failure and aspiration pneumonia. Plan to continue current supportive measures per nephrology recommendations. 4. Diabetes mellitus type 2/Parkinson's disease/elevated liver enzymes/history of gout/advanced age/morbid obesity Complicates care, management, recovery and prognosis. We will continue to monitor blood sugars closely. Metformin will be held given renal dysfunction and probable need for contrast. Recommend continuing Parkinson's medications if possible. This note was generated with [employer] dictation software. It may contain incorrect words, spelling, and punctuation that were not noted in checking the note before signing. Inpatient E&M: 74325 Subs Hosp L2
[2019-11-21] MEDS: BRIMONIDINE 0.2% 5ML BOTTLE 1 DRP EACH EYE ×2 (09:10→21:08)
[2019-11-21] MEDS: Allopurinol 100 MG Tablet PO (09:10)
[2019-11-21] MEDS: Aspirin 81 MG TAB.CHEW PO (09:10)
[2019-11-21] MEDS: Pantoprazole Sodium 40 MG Tablet PO (09:11)
[2019-11-21] MEDS: Carvedilol 12.5 MG Tablet PO ×2 (09:11→21:09)
[2019-11-21] MEDS: Clopidogrel Bisulfate 75 MG Tablet PO (09:11)
--- NOTE | 2019-11-21 10:01 | PCM.PN.ID ---
Patient Problems: Active and Suspected Problems CHIKA (acute kidney injury) (Acute) Heart failure (Acute) NSTEMI (non-ST elevated myocardial infarction) (Acute) Aspiration pneumonia (Acute) Subjective: Feeling well, no dyspnea, no fever, no n/v/d - Physical Exam Vitals/I&O's: Vital Signs Temp Pulse Resp BP Pulse Ox 97.9 F 70 16 150/86 H 94 11/21/19 09:09 11/21/19 09:09 11/21/19 09:09 11/21/19 09:09 11/21/19 09:09 Oxygen Flow Rate (L/min) 3 Oxygen Delivery Method Room Air Weight: 99.3 kg Body Mass Index (BMI) 44.6 Intake and Output for Last 24 Hours 11/19/19 11/20/19 11/21/19 23:59 23:59 23:59 Intake Total 2762 / 2762 218 / 218 530 / 530 Balance 2762 / 2762 218 / 218 530 / 530 General: Alert, Cooperative, No apparent distress Lungs: Clear to auscultation, Normal air movement Cardiovascular: Regular rate, Regular Rhythm Abdomen: Soft, Non Tender, Non-Distended Skin: No rashes Microbiology Past 72 Hours 11/14/19 20:25 Blood Culture (Wb) - Anticubital Right Blood Culture - Final No growth in 5 days. 11/14/19 19:15 Blood Culture (Wb) - Anticubital Left Blood Culture - Final No growth in 5 days. 11/19/19 11:50 Mucosa - Nasopharyngeal Respiratory Panel (PCR) - Final 11/15/19 00:00 Sputum, Induced/[place] Gram Stain - Final 11/15/19 00:00 Sputum, Induced/[place]ens Respiratory Culture - Final Laboratory Results 11/20/19 11:55: POC Glucose 131 H 11/20/19 17:12: POC Glucose 113 H 11/20/19 23:58: POC Glucose 116 H 11/21/19 05:27: WBC 9.2, RBC 3.93 L, Hgb 11.7 L, Hct 38.7 L, MCV 98.5 H, MCH 29.8, MCHC 30.2 L, RDW Std Deviation 50.5 H, RDW Coeff of Sammi 13.9, Plt Count 218, MPV 11.5, Immature Gran % (Auto) 1.500 H, Neut % (Auto) 77.7 H, Lymph % (Auto) 11.1 L, [place] % (Auto) 6.7, Eos % (Auto) 2.7, Baso % (Auto) 0.3, Absolute Neuts (auto) 7.2, Absolute Lymphs (auto) 1.02, Nucleated RBC % 0 11/21/19 05:27: Sodium 146 H, Potassium 3.7, Chloride 112 H, Carbon Dioxide 28.0, Anion Gap 6, BUN 43 H, Creatinine 1.93 H, Estim Creat Clear Calc 25.15, Est GFR (MDRD) Af Amer 44 L, Est GFR (MDRD) Non-Af 36 L, BUN/Creatinine Ratio 22.3 H, Glucose 128 H, Calcium 8.9, Total Bilirubin 0.70, AST 30, ALT 27, Alkaline Phosphatase 90, Total Protein 6.4, Albumin 2.2 L, Globulin 4.2, Albumin/Globulin Ratio 0.5 L 11/21/19 06:12: POC Glucose 126 H Current Medications Acetaminophen (Tylenol) 650 mg PO Q6H PRN PRN PRN Reason: Pain 1-10 or Fever Last Admin: 11/18/19 16:35 Dose: 650 mg Documented by: Albuterol Sulfate (Ventolin Aerosols) 2.5 mg INHALATION Q2H PRN PRN PRN Reason: sob/wheezing [facility] Admin: 11/21/19 09:10 Dose: 100 mg Documented by: Aspirin (Aspirin, Baby) 81 mg PO DAILY@0800 [facility] Last Admin: 11/21/19 09:10 Dose: 81 mg Documented by: Atorvastatin Calcium (Lipitor) 40 mg PO QHS [facility] Last Admin: 11/20/19 20:45 Dose: 40 mg Documented by: Brimonidine Tartrate (Brimonidine 0.2% 5ml Bottle) 1 drop EACH EYE BID [facility] Last Admin: 11/21/19 09:10 Dose: 1 drop Documented by: Carbidopa/Levodopa (Sinemet) 2 tablet PO TIDAC [facility] Last Admin: 11/21/19 06:16 Dose: 2 tablet Documented by: Carvedilol (Coreg) 12.5 mg PO BID [facility] Last Admin: 11/21/19 09:11 Dose: 12.5 mg Documented by: Clopidogrel Bisulfate (Plavix) 75 mg PO DAILY [facility] Last Admin: 11/21/19 09:11 Dose: 75 mg Documented by: Dextrose (D50w Syringe) 0 gm IV X1 PRN; Protocol PRN Reason: Hypoglycemia Furosemide (Lasix) 40 mg IV BIDLX [facility] Last Admin: 11/19/19 06:56 Dose: Not Given Documented by: Glucagon () 1 mg IM .X1 PRN PRN Reason: Hypoglycemia Heparin Sodium (Porcine) (Heparin Na) 0 unit IV UD PRN; Protocol PRN Reason: dose adjustment Last Admin: 11/18/19 03:07 Dose: 1,000 unit Documented by: Hydralazine HCl (Apresoline) 25 mg PO TID [facility] Last Admin: 11/21/19 06:15 Dose: 25 mg Documented by: Piperacillin Sod/Tazobactam (Sod 3.375 gm/ Sodium Chloride) 50 mls @ 12.5 mls/hr IV Q12 [facility] Last Admin: 11/21/19 09:18 Dose: 12.5 mls/hr Documented by: Sodium Chloride () 250 mls @ 15 mls/hr IV .[id number] PRN PRN Reason: Saline Flush Last Infusion: 11/19/19 02:50 Dose: 0 mls/hr Documented by: Sodium Chloride () 250 mls @ 15 mls/hr IV .[id number] PRN PRN Reason: Additional IVPB Infusion Insulin Human Lispro (Humalog Kwikpen (Bkc)) 0 unit SC Q6 [facility]; Protocol Last Admin: 11/21/19 06:16 Dose: Not Given Documented by: Lactobacillus Acidophilus (Acidophilus) 1 tablet PO TID [facility] Last Admin: 11/21/19 06:15 Dose: 1 tablet Documented by: Ondansetron HCl (Zofran) 4 mg IV Q8H PRN PRN PRN Reason: NAUSEA/VOMITING Pantoprazole Sodium (Protonix) 40 mg PO DAILY [facility] Last Admin: 11/21/19 09:11 Dose: 40 mg Documented by: Saliva Substitute (Biotene) 15 ml MM 5X/DAY PRN PRN Reason: DRY MOUTH Last Admin: 11/20/19 14:23 Dose: 15 ml Documented by: Sodium Chloride () 10 - 40 ml IV UD PRN PRN Reason: SALINE FLUSH Last Admin: 11/19/19 12:19 Dose: 20 ml Documented by: Medical Necessity - Tobacco Use Smoking Status: Former smoker Route of nutrition/ use of supplements: [] Nutritional Intake: [] IV Site: [] Barker Catheter: [] - Assessment/Plan Antibiotics: [] Assessment/Plan: [] Active and Suspected Problems CHIKA (acute kidney injury) (Acute) Heart failure (Acute) NSTEMI (non-ST elevated myocardial infarction) (Acute) No fever, wbc normal, O2 improving. Ongoing infiltrate on chest imaging, may be related to ongoing aspiration episodes prior to being made NPO. Sputum cx showed mixed oral isidra but 4+ wbc. Ucx with 11-25k ecoli. CHIKA improving. Feeling better. On zosyn since 11/13, will stop today. Will follow
--- NOTE | 2019-11-21 10:50 | CASEMGMT ---
JOSE called [facility] and was told they will accept patient. SW to follow for d/c to [facility] when ready. Plan: [facility] when ready. An aCristina [employer]ADE [employer]ACH[employer]PER[employer]
[2019-11-21 11:55] LABS: Bedside Glucose 114 mg/dL (70-110)
--- NOTE | 2019-11-21 12:12 | PN.RENAL_ITS ---
Patient Problems: Active and Suspected Problems CHIKA (acute kidney injury) (Acute) Heart failure (Acute) NSTEMI (non-ST elevated myocardial infarction) (Acute) Aspiration pneumonia (Acute) Subjective: no new events - Physical Exam Vitals/I&O's: Vital Signs Temp Pulse Resp BP Pulse Ox 97.9 F 70 16 150/86 H 94 11/21/19 09:09 11/21/19 09:09 11/21/19 09:09 11/21/19 09:09 11/21/19 09:09 Oxygen Flow Rate (L/min) 3 Oxygen Delivery Method Room Air Weight: 99.3 kg Body Mass Index (BMI) 44.6 Intake and Output for Last 24 Hours 11/19/19 11/20/19 11/21/19 23:59 23:59 23:59 Intake Total 2762 / 2762 218 / 218 530 / 530 Balance 2762 / 2762 218 / 218 530 / 530 General: Alert, Oriented x3, Cooperative HEENT: Atraumatic, PERRLA, EOMI, Normocephalic Neck: Supple, No JVD, Negative Carotid Bruits Lungs: Clear to auscultation, Normal air movement Cardiovascular: Regular rate, No murmurs Abdomen: Bowel Sounds Present, Soft, Non Tender Extremities: No edema, Capillary Refill Less than 3 Seconds Skin: No rashes, No breakdown Musculoskeletal: No Tenderness to Palpation of Joints or Extremities Neurological: Cranial nerves II-XII grossly intact Psych/Mental Status: Normal Affect, Appropriate Microbiology Past 72 Hours 11/14/19 20:25 Blood Culture (Wb) - Anticubital Right Blood Culture - Final No growth in 5 days. 11/14/19 19:15 Blood Culture (Wb) - Anticubital Left Blood Culture - Final No growth in 5 days. 11/19/19 11:50 Mucosa - Nasopharyngeal Respiratory Panel (PCR) - Final Laboratory Results 11/20/19 11:55: POC Glucose 131 H 11/20/19 17:12: POC Glucose 113 H 11/20/19 23:58: POC Glucose 116 H 11/21/19 05:27: WBC 9.2, RBC 3.93 L, Hgb 11.7 L, Hct 38.7 L, MCV 98.5 H, MCH 29.8, MCHC 30.2 L, RDW Std Deviation 50.5 H, RDW Coeff of Sammi 13.9, Plt Count 218, MPV 11.5, Immature Gran % (Auto) 1.500 H, Neut % (Auto) 77.7 H, Lymph % (Auto) 11.1 L, [place] % (Auto) 6.7, Eos % (Auto) 2.7, Baso % (Auto) 0.3, Absolute Neuts (auto) 7.2, Absolute Lymphs (auto) 1.02, Nucleated RBC % 0 11/21/19 05:27: Sodium 146 H, Potassium 3.7, Chloride 112 H, Carbon Dioxide 28.0, Anion Gap 6, BUN 43 H, Creatinine 1.93 H, Estim Creat Clear Calc 25.15, Est GFR (MDRD) Af Amer 44 L, Est GFR (MDRD) Non-Af 36 L, BUN/Creatinine Ratio 22.3 H, Glucose 128 H, Calcium 8.9, Total Bilirubin 0.70, AST 30, ALT 27, Alkaline Phosphatase 90, Total Protein 6.4, Albumin 2.2 L, Globulin 4.2, Albumin/Globulin Ratio 0.5 L 11/21/19 06:12: POC Glucose 126 H 11/21/19 11:47: POC Glucose 114 H Current Medications Acetaminophen (Tylenol) 650 mg PO Q6H PRN PRN PRN Reason: Pain 1-10 or Fever Last Admin: 11/18/19 16:35 Dose: 650 mg Documented by: Albuterol Sulfate (Ventolin Aerosols) 2.5 mg INHALATION Q2H PRN PRN PRN Reason: sob/wheezing [facility] Last Admin: 11/21/19 09:10 Dose: 100 mg Documented by: Aspirin (Aspirin, Baby) 81 mg PO DAILY@0800 [facility] Last Admin: 11/21/19 09:10 Dose: 81 mg Documented by: Atorvastatin Calcium (Lipitor) 40 mg PO QHS [facility] Last Admin: 11/20/19 20:45 Dose: 40 mg Documented by: Brimonidine Tartrate (Brimonidine 0.2% 5ml Bottle) 1 drop EACH EYE BID [facility] Last Admin: 11/21/19 09:10 Dose: 1 drop Documented by: Carbidopa/Levodopa (Sinemet) 2 tablet PO TIDAC [facility] Last Admin: 11/21/19 11:50 Dose: 2 tablet Documented by: Carvedilol (Coreg) 12.5 mg PO BID [facility] Last Admin: 11/21/19 09:11 Dose: 12.5 mg Documented by: Clopidogrel Bisulfate (Plavix) 75 mg PO DAILY [facility] Last Admin: 11/21/19 09:11 Dose: 75 mg Documented by: Dextrose (D50w Syringe) 0 gm IV X1 PRN; Protocol PRN Reason: Hypoglycemia Furosemide (Lasix) 40 mg IV BIDLX [facility] Last Admin: 11/19/19 06:56 Dose: Not Given Documented by: Glucagon () 1 mg IM .X1 PRN PRN Reason: Hypoglycemia Heparin Sodium (Porcine) (Heparin Na) 0 unit IV UD PRN; Protocol PRN Reason: dose adjustment Last Admin: 11/18/19 03:07 Dose: 1,000 unit Documented by: Hydralazine HCl (Apresoline) 25 mg PO TID [facility] Last Admin: 11/21/19 06:15 Dose: 25 mg Documented by: Sodium Chloride () 250 mls @ 15 mls/hr IV .[id number] PRN PRN Reason: Saline Flush Last Infusion: 11/19/19 02:50 Dose: 0 mls/hr Documented by: Sodium Chloride () 250 mls @ 15 mls/hr IV .[id number] PRN PRN Reason: Additional IVPB Infusion Insulin Human Lispro (Humalog Kwikpen (Bkc)) 0 unit SC Q6 [facility]; Protocol Last Admin: 11/21/19 11:50 Dose: Not Given Documented by: Lactobacillus Acidophilus (Acidophilus) 1 tablet PO TID [facility] Last Admin: 11/21/19 06:15 Dose: 1 tablet Documented by: Ondansetron HCl (Zofran) 4 mg IV Q8H PRN PRN PRN Reason: NAUSEA/VOMITING Pantoprazole Sodium (Protonix) 40 mg PO DAILY [facility] Last Admin: 11/21/19 09:11 Dose: 40 mg Documented by: Saliva Substitute (Biotene) 15 ml MM 5X/DAY PRN PRN Reason: DRY MOUTH Last Admin: 11/20/19 14:23 Dose: 15 ml Documented by: Sodium Chloride () 10 - 40 ml IV UD PRN PRN Reason: SALINE FLUSH Last Admin: 11/19/19 12:19 Dose: 20 ml Documented by: Medical Necessity - Tobacco Use Smoking Status: Former smoker Assessment/Plan All Active Problems Weakness (Acute) Dysuria (Acute) CHIKA (acute kidney injury) (Acute) Heart failure (Acute) NSTEMI (non-ST elevated myocardial infarction) (Acute) Aspiration pneumonia (Acute) 1. 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 Baseline SCr had been around 1.9 mg/dL. CKD is likely due to diabetic nephropathy. CHIKA is likely due to prerenal CHIKA -> ischemic ATN from sepsis and heart failure (cardiorenal syndrome). renal US reviewed cr is down to 1.9. baseline as of mar this year was 1.8. likely close to baseline cardiac cath ok from my end since he is close to baseline 2. Severe sepsis. Due to UTI and pneumonia. Clinically improved. Hemodynamically stable. ID note reviewed. likely aspiration events. on modified diet now 3. Acute hypoxic respiratory failure. remains on O2. clinically better 4. Hypernatremia. better. since he is on modified diet unable to give water. should improve slowly. better than before dw hospitalist service
--- NOTE | 2019-11-21 12:40 | PN_ITS ---
<GradyMinoo MAINTENANCE MECH[employer]IC - Last Filed: 11/21/19 12:58> Patient Problems: Active and Suspected Problems CHIKA (acute kidney injury) (Acute) Heart failure (Acute) NSTEMI (non-ST elevated myocardial infarction) (Acute) Aspiration pneumonia (Acute) Subjective: Patient seen and examined. Reports improvement in breathing. Denies cough, fever, chills. Denies chest pain. Discussed with cardiology. Plan for cath tomorrow. - Physical Exam Vitals/I&O's: Vital Signs Temp Pulse Resp BP Pulse Ox 97.9 F 70 16 150/86 H 94 11/21/19 09:09 11/21/19 09:09 11/21/19 09:09 11/21/19 09:09 11/21/19 09:09 Oxygen Flow Rate (L/min) 3 Oxygen Delivery Method Room Air Weight: 218 lb 14.704 oz Body Mass Index (BMI) 44.6 Intake and Output for Last 24 Hours 11/19/19 11/20/19 11/21/19 23:59 23:59 23:59 Intake Total 2762 / 2762 218 / 218 530 / 530 Balance 2762 / 2762 218 / 218 530 / 530 General: Alert, Oriented x3, Cooperative HEENT: Atraumatic, PERRLA, EOMI, Normocephalic Neck: Supple, No JVD, Negative Carotid Bruits Lungs: Clear to auscultation, Diminished Cardiovascular: Regular rate, No murmurs Abdomen: Bowel Sounds Present, Soft, Non Tender, Non-Distended Extremities: No clubbing, No cyanosis, No edema, Capillary Refill Less than 3 Seconds Skin: No rashes, No breakdown Musculoskeletal: No Tenderness to Palpation of Joints or Extremities Neurological: Cranial nerves II-XII grossly intact, Neuro grossly intact Psych/Mental Status: Normal Affect, Appropriate Microbiology Past 72 Hours 11/14/19 20:25 Blood Culture (Wb) - Anticubital Right Blood Culture - Final No growth in 5 days. 11/14/19 19:15 Blood Culture (Wb) - Anticubital Left Blood Culture - Final No growth in 5 days. 11/19/19 11:50 Mucosa - Nasopharyngeal Respiratory Panel (PCR) - Final Laboratory Results 11/20/19 17:12: POC Glucose 113 H 11/20/19 23:58: POC Glucose 116 H 11/21/19 05:27: WBC 9.2, RBC 3.93 L, Hgb 11.7 L, Hct 38.7 L, MCV 98.5 H, MCH 29.8, MCHC 30.2 L, RDW Std Deviation 50.5 H, RDW Coeff of Sammi 13.9, Plt Count 218, MPV 11.5, Immature Gran % (Auto) 1.500 H, Neut % (Auto) 77.7 H, Lymph % (Auto) 11.1 L, [place] % (Auto) 6.7, Eos % (Auto) 2.7, Baso % (Auto) 0.3, Absolute Neuts (auto) 7.2, Absolute Lymphs (auto) 1.02, Nucleated RBC % 0 11/21/19 05:27: Sodium 146 H, Potassium 3.7, Chloride 112 H, Carbon Dioxide 28.0, Anion Gap 6, BUN 43 H, Creatinine 1.93 H, Estim Creat Clear Calc 25.15, Est GFR (MDRD) Af Amer 44 L, Est GFR (MDRD) Non-Af 36 L, BUN/Creatinine Ratio 22.3 H, Glucose 128 H, Calcium 8.9, Total Bilirubin 0.70, AST 30, ALT 27, Alkaline Phosphatase 90, Total Protein 6.4, Albumin 2.2 L, Globulin 4.2, Albumin/Globulin Ratio 0.5 L 11/21/19 06:12: POC Glucose 126 H 11/21/19 11:47: POC Glucose 114 H Current Medications Acetaminophen (Tylenol) 650 mg PO Q6H PRN PRN PRN Reason: Pain 1-10 or Fever Last Admin: 11/18/19 16:35 Dose: 650 mg Documented by: Albuterol Sulfate (Ventolin Aerosols) 2.5 mg INHALATION Q2H PRN PRN PRN Reason: sob/wheezing Allopurinol (Zyloprim) 100 mg PO DAILYCM [facility] Last Admin: 11/21/19 09:10 Dose: 100 mg Documented by: Aspirin (Aspirin, Baby) 81 mg PO DAILY@0800 [facility] Last Admin: 11/21/19 09:10 Dose: 81 mg Documented by: Atorvastatin Calcium (Lipitor) 40 mg PO QHS [facility] Last Admin: 11/20/19 20:45 Dose: 40 mg Documented by: Brimonidine Tartrate (Brimonidine 0.2% 5ml Bottle) 1 drop EACH EYE BID [facility] Last Admin: 11/21/19 09:10 Dose: 1 drop Documented by: Carbidopa/Levodopa (Sinemet) 2 tablet PO TIDAC [facility] Last Admin: 11/21/19 11:50 Dose: 2 tablet Documented by: Carvedilol (Coreg) 12.5 mg PO BID [facility] Last Admin: 11/21/19 09:11 Dose: 12.5 mg Documented by: Clopidogrel Bisulfate (Plavix) 75 mg PO DAILY [facility] Last Admin: 11/21/19 09:11 Dose: 75 mg Documented by: Dextrose (D50w Syringe) 0 gm IV X1 PRN; Protocol PRN Reason: Hypoglycemia Furosemide (Lasix) 40 mg IV BIDLX [facility] Last Admin: 11/19/19 06:56 Dose: Not Given Documented by: Glucagon () 1 mg IM .X1 PRN PRN Reason: Hypoglycemia Heparin Sodium (Porcine) (Heparin Na) 0 unit IV UD PRN; Protocol PRN Reason: dose adjustment Last Admin: 11/18/19 03:07 Dose: 1,000 unit Documented by: Hydralazine HCl (Apresoline) 25 mg PO TID [facility] Last Admin: 11/21/19 06:15 Dose: 25 mg Documented by: Sodium Chloride () 250 mls @ 15 mls/hr IV .[id number] PRN PRN Reason: Saline Flush Last Infusion: 11/19/19 02:50 Dose: 0 mls/hr Documented by: Sodium Chloride () 250 mls @ 15 mls/hr IV .[id number] PRN PRN Reason: Additional IVPB Infusion Insulin Human Lispro (Humalog Kwikpen (Bkc)) 0 unit SC Q6 [facility]; Protocol Last Admin: 11/21/19 11:50 Dose: Not Given Documented by: Lactobacillus Acidophilus (Acidophilus) 1 tablet PO TID [facility] Last Admin: 11/21/19 06:15 Dose: 1 tablet Documented by: Ondansetron HCl (Zofran) 4 mg IV Q8H PRN PRN PRN Reason: NAUSEA/VOMITING Pantoprazole Sodium (Protonix) 40 mg PO DAILY [facility] Last Admin: 11/21/19 09:11 Dose: 40 mg Documented by: Saliva Substitute (Biotene) 15 ml MM 5X/DAY PRN PRN Reason: DRY MOUTH Last Admin: 11/20/19 14:23 Dose: 15 ml Documented by: Sodium Chloride () 10 - 40 ml IV UD PRN PRN Reason: SALINE FLUSH Last Admin: 11/19/19 12:19 Dose: 20 ml Documented by: Medical Necessity - Tobacco Use Smoking Status: Former smoker Assessment/Plan All Active Problems Weakness (Acute) Dysuria (Acute) CHIKA (acute kidney injury) (Acute) Heart failure (Acute) NSTEMI (non-ST elevated myocardial infarction) (Acute) Aspiration pneumonia (Acute) 1. NSTEMI-continue aspirin, statin, Plavix, carvedilol. Cardiology following. Plan for heart cath in a.m. 2. Acute hypoxic respiratory failure secondary to acute heart failure with reduced ejection fraction and aspiration pneumonia-continue supplement oxygen to maintain O2 at or above 90%. Oxygen currently stable on room air. Pulmonary medicine/cardiology following. 3. Acute heart failure with reduced ejection fraction-echocardiogram demonstrates an EF of 45%, stage I diastolic dysfunction, pulmonary artery systolic pressure 50 to 55 mmHg. BNP greater than [address] demonstrates bilateral upper lobe pneumonia greater on the left than the right. Small bilateral pleural effusions. Continue IV Lasix. Strict I&O. Daily weight. 4. Aspiration pneumonia, dysphagia-completed treatment with IV Zosyn. ID and pulmonary medicine following. Continue speech therapy eval. 5. Severe sepsis secondary to pneumonia and UTI-completed treatment with IV zosyn as noted above. 6. Acute kidney injury-improving. Nephrology following. Trend BMP. 7. Acute rhabdomyolysis-resolved. 8. Hypertension-continue carvedilol. Amlodipine discontinued. 9. Parkinson's disease- PT/OT. Continue carbidopa/levodopa. 10. Paroxysmal atrial fibrillation/nonsustained V. tach-history of ablation. AICD in place. Continue carvedilol. 11. Type 2 diabetes [id number] with sliding scale insulin. 12. Hypernatremia-improving, trend BMP. DVT prophylaxis- SCDs Discharge planning: SNF when medically stable. This patient was seen by HUNTER Reyes under the supervision of Dr. Bullock. <Aleksandr Bullock - Last Filed: 11/21/19 13:51> - Physical Exam Vitals/I&O's: Vital Signs Temp Pulse Resp BP Pulse Ox 97.9 F 70 16 150/86 H 94 11/21/19 09:09 11/21/19 09:09 11/21/19 09:09 11/21/19 09:09 11/21/19 09:09 Oxygen Flow Rate (L/min) 3 Oxygen Delivery Method Room Air Weight: 99.3 kg Body Mass Index (BMI) 44.6 Intake and Output for Last 24 Hours 11/19/19 11/20/19 11/21/19 23:59 23:59 23:59 Intake Total 2762 / 2762 218 / 218 530 / 530 Balance 2762 / 2762 218 / 218 530 / 530 Microbiology Past 72 Hours 11/14/19 20:25 Blood Culture (Wb) - Anticubital Right Blood Culture - Final No growth in 5 days. 11/14/19 19:15 Blood Culture (Wb) - Anticubital Left Blood Culture - Final No growth in 5 days. 11/19/19 11:50 Mucosa - Nasopharyngeal Respiratory Panel (PCR) - Final Laboratory Results 11/20/19 17:12: POC Glucose 113 H 11/20/19 23:58: POC Glucose 116 H 11/21/19 05:27: WBC 9.2, RBC 3.93 L, Hgb 11.7 L, Hct 38.7 L, MCV 98.5 H, MCH 29.8, MCHC 30.2 L, RDW Std Deviation 50.5 H, RDW Coeff of Sammi 13.9, Plt Count 218, MPV 11.5, Immature Gran % (Auto) 1.500 H, Neut % (Auto) 77.7 H, Lymph % (Auto) 11.1 L, [place] % (Auto) 6.7, Eos % (Auto) 2.7, Baso % (Auto) 0.3, Absolute Neuts (auto) 7.2, Absolute Lymphs (auto) 1.02, Nucleated RBC % 0 11/21/19 05:27: Sodium 146 H, Potassium 3.7, Chloride 112 H, Carbon Dioxide 28.0, Anion Gap 6, BUN 43 H, Creatinine 1.93 H, Estim Creat Clear Calc 25.15, Est GFR (MDRD) Af Amer 44 L, Est GFR (MDRD) Non-Af 36 L, BUN/Creatinine Ratio 22.3 H, Glucose 128 H, Calcium 8.9, Total Bilirubin 0.70, AST 30, ALT 27, Alkaline Phosphatase 90, Total Protein 6.4, Albumin 2.2 L, Globulin 4.2, Albumin/Globulin Ratio 0.5 L 11/21/19 06:12: POC Glucose 126 H 11/21/19 11:47: POC Glucose 114 H Current Medications Acetaminophen (Tylenol) 650 mg PO Q6H PRN PRN PRN Reason: Pain 1-10 or Fever Last Admin: 11/18/19 16:35 Dose: 650 mg Documented by: Albuterol Sulfate (Ventolin Aerosols) 2.5 mg INHALATION Q2H PRN PRN PRN Reason: sob/wheezing Allopurinol (Zyloprim) 100 mg PO DAILYCM [facility] Last Admin: 11/21/19 09:10 Dose: 100 mg Documented by: Aspirin (Aspirin, Baby) 81 mg PO DAILY@0800 [facility] Last Admin: 11/21/19 09:10 Dose: 81 mg Documented by: Atorvastatin Calcium (Lipitor) 40 mg PO QHS [facility] Last Admin: 11/20/19 20:45 Dose: 40 mg Documented by: Brimonidine Tartrate (Brimonidine 0.2% 5ml Bottle) 1 drop EACH EYE BID [facility] Last Admin: 11/21/19 09:10 Dose: 1 drop Documented by: Carbidopa/Levodopa (Sinemet) 2 tablet PO TIDAC [facility] Last Admin: 11/21/19 11:50 Dose: 2 tablet Documented by: Carvedilol (Coreg) 12.5 mg PO BID [facility] Last Admin: 11/21/19 09:11 Dose: 12.5 mg Documented by: Clopidogrel Bisulfate (Plavix) 75 mg PO DAILY [facility] Last Admin: 11/21/19 09:11 Dose: 75 mg Documented by: Dextrose (D50w Syringe) 0 gm IV X1 PRN; Protocol PRN Reason: Hypoglycemia Furosemide (Lasix) 40 mg IV BIDLX [facility] Last Admin: 11/19/19 06:56 Dose: Not Given Documented by: Glucagon () 1 mg IM .X1 PRN PRN Reason: Hypoglycemia Heparin Sodium (Porcine) (Heparin Na) 0 unit IV UD PRN; Protocol PRN Reason: dose adjustment Last Admin: 11/18/19 03:07 Dose: 1,000 unit Documented by: Hydralazine HCl (Apresoline) 25 mg PO TID [facility] Last Admin: 11/21/19 06:15 Dose: 25 mg Documented by: Sodium Chloride () 250 mls @ 15 mls/hr IV .[id number] PRN PRN Reason: Saline Flush Last Infusion: 11/19/19 02:50 Dose: 0 mls/hr Documented by: Sodium Chloride () 250 mls @ 15 mls/hr IV .[id number] PRN PRN Reason: Additional IVPB Infusion Insulin Human Lispro (Humalog Kwikpen (Bkc)) 0 unit SC Q6 [facility]; Protocol Last Admin: 11/21/19 11:50 Dose: Not Given Documented by: Lactobacillus Acidophilus (Acidophilus) 1 tablet PO TID [facility] Last Admin: 11/21/19 06:15 Dose: 1 tablet Documented by: Ondansetron HCl (Zofran) 4 mg IV Q8H PRN PRN PRN Reason: NAUSEA/VOMITING Pantoprazole Sodium (Protonix) 40 mg PO DAILY [facility] Last Admin: 11/21/19 09:11 Dose: 40 mg Documented by: Saliva Substitute (Biotene) 15 ml MM 5X/DAY PRN PRN Reason: DRY MOUTH Last Admin: 11/20/19 14:23 Dose: 15 ml Documented by: Sodium Chloride () 10 - 40 ml IV UD PRN PRN Reason: SALINE FLUSH Last Admin: 11/19/19 12:19 Dose: 20 ml Documented by: Assessment/Plan This patient was seen in conjunction with HUNTER Reyes. I have independently interviewed and examined the patient and reviewed pertinent historical, laboratory, and other data. Please refer to HUNTER Reyes note for details of this patient's presentation, findings, and recommendations. I have reviewed HUNTER Reyes note and concur with documented findings. In brief, patient 74-year-old gentleman with multiple comorbidities admitted with progressive shortness of breath. An assessment of acute hypoxic respiratory failure secondary to combination of CHF pneumonia made admitted for subsequent management. Patient was initially managed on noninvasive ventilation BiPAP however his condition deteriorated resulting in patient being intubated. Weaned off the vent on 11/14/2019. 11/19/2019: Patient seen for kidney function continues to worsen. Sodium levels up to 152 from 146. Patient Lasix held. Started on D5W with serial monitoring of electrolytes ordered 11/20/2019: Patient seen sodium level still remain elevated, however there is been slight improvement in kidney function. Plan is for patient to undergo left heart catheterization pending kidney function improvement 11/21/2019; patient seen much more awake compared to the previous day. His sodium levels are finally trending down plan is for patient to complete Zosyn therapy on 11/21/2019 Physical Examination: GENERAL: Frail looking HEENT: Atraumatic; EYES; Anicteric, NECK; supple, normal thyroid, RESPIRATORY: Diminished to auscultation CARDIOVASCULAR: Regular S1 S2, GI: soft, normoactive bowel sounds, : No Renal angle tenderness; EXTREMITIES: edema, no clubbing, NEURO: Awake; no lateralizing signs. PSYCH; Flat affect Assessment: 1. Acute hypoxic respiratory failure 2. Severe sepsis secondary to pneumonia with suspected multidrug organisms 3. Non-ST segment elevation SD 4. Acute kidney injury 5. Acute rhabdomyolysis 6. Acute congestive heart failure with reduced ejection fraction?45% 7. Pulmonary hypertension with pulmonary arterial systolic pressure of 50 to 55 mmHg 8. Parkinson's disease 9. Dysphagia 10. Non Sustained VT 11. Hypernatremia Recommendations: 1. I have discussed the results of my overview and impressions with the patient 2. Options for management were reviewed Inpatient E&M: 78061 Subs Hosp L2
--- NOTE | 2019-11-21 14:32 | PN.CARD_ITS ---
Subjectve: Patient is doing well. He denies any chest pain or shortness of breath. Creatinine is back to baseline. His sodium has also improved. He is off IV fluids and diuretics. Objective: Vital Signs Temp Pulse Resp BP Pulse Ox 97.9 F 70 18 150/86 H 96 11/21/19 09:09 11/21/19 09:09 11/21/19 13:38 11/21/19 09:09 11/21/19 13:38 Oxygen Flow Rate (L/min) 3 Oxygen Delivery Method Room Air Weight: 218 lb 14.704 oz Body Mass Index (BMI) 44.6 Intake and Output for Last 24 Hours 11/19/19 11/20/19 11/21/19 23:59 23:59 23:59 Intake Total 2762 / 2762 218 / 218 580 / 580 Balance 2762 / 2762 218 / 218 580 / 580 General: Awake, Alert, Oriented x 3 HEENT: Atraumatic Oral: Moist Mucosa Neck: Supple Lungs: Clear to auscultation Cardiovascular: Regular Rhythm Abdomen: Soft Extremities: No edema Skin: No Rashes Psych/Mental Status: Appropriate 11/21/19 05:27: WBC 9.2, RBC 3.93 L, Hgb 11.7 L, Hct 38.7 L, MCV 98.5 H, MCH 29.8, MCHC 30.2 L, Plt Count 218, MPV 11.5, Immature Gran % (Auto) 1.500 H, Neut % (Auto) 77.7 H, Lymph % (Auto) 11.1 L, [place] % (Auto) 6.7, Eos % (Auto) 2.7, Baso % (Auto) 0.3, Absolute Neuts (auto) 7.2, Nucleated RBC % 0 11/21/19 05:27: Sodium 146 H, Potassium 3.7, Chloride 112 H, Carbon Dioxide 28.0, Anion Gap 6, BUN 43 H, Creatinine 1.93 H, Est GFR (MDRD) Af Amer 44 L, Est GFR (MDRD) Non-Af 36 L, BUN/Creatinine Ratio 22.3 H, Glucose 128 H, Calcium 8.9, Total Bilirubin 0.70 Rhythm: EKG: ECHO: Stress Test: Cardiac Cath: PCI: CT Surgery: Holter monitor: EPS: PPM: CXR: Chest CT Scan: Medical Necessity - Tobacco Use Smoking Status: Former smoker Assessment/Plan 1. Elevated troponin: Patient appears to have had a non-STEMI. He has Q waves in the anterior leads which are new compared to an EKG in 2018. He has underlying right bundle branch block. His troponin appears to have peaked at around 76. His echo was reviewed and reveals an EF of 45% with apical akinesis. Patient has acute on chronic renal insufficiency. He is hemodynamically stable at this time. He did have 1 run of nonsustained V. tach that was about 20 beats. Since then he has remained electrically stable as well. Discussed the option of proceeding with coronary angiography right away or waiting to see if the creatinine gets better with the patient's and Dr. Son. I feel that at this point it will be better to wait and see if the creatinine gets better before proceeding with coronary angiography. Patient's infarct may have already been completed and appears that he has presented late. Continue IV heparin at this time. We can discontinue amlodipine to allow for further increase in beta- melissa dose as well as adding hydralazine and nitrate if patient is able to tolerate. Continue IV Lasix. 11/21/2019: Patient's creatinine is back to baseline. I think will be reasonable to proceed with coronary angiography if creatinine continues to stay at baseline we will proceed with coronary angiography tomorrow. 2. Nonsustained ventricular tachycardia: In the setting of CO. Patient already has AICD. We will adjust the beta-melissa dose as tolerated as well. No further episodes. 3. CHF: Continue present management. He was over diuresed at one point. EF was 45% with apical akinesis. 4. Atrial fibrillation: Patient has history of A. fib ablation. Will monitor. No history of recurrence since ablation 5. Status post AICD: This was done in 2003 with recent generator change. Will monitor.
--- NOTE | 2019-11-21 14:34 | CASEMGMT ---
JOSE called patient's and let her know that [facility] can accept patient. JOSE also let patient know this information. Plan: [facility] under skilled level of care when medically ready. Ana Cristina MEADE MSW
[2019-11-21 17:25] LABS: Bedside Glucose 104 mg/dL (70-110)
[2019-11-21] MEDS: 0.9% Saline Lock 10 ML Syringe IV (21:07)
[2019-11-21] MEDS: Atorvastatin Calcium 40 MG Tablet PO (21:09)
[2019-11-22] VITALS (21 sets, daily range): BP systolic 112–150; BP diastolic 48–74; PULSE 61–76; RESP 14–20; TEMP 36–37; O2SAT 94–97
[2019-11-22] MEDS: Acetaminophen 325 MG Tablet 650 MG PO ×2 (04:24→21:16)
[2019-11-22 05:33] LABS: Hematocrit 38.4 % (40-54); Hemoglobin 11.6 g/dL (13.0-16.5); Mean Corp Hgb Conc 30.2 g/dL (32-36); Mean Corpuscular Hgb 29.8 pg (27.0-32.0); Mean Corpuscular Volume 98.7 fL (80-94); Mean Platelet Vol. 11.1 fl (6.2-12.0); Platelet Count 210 K/mm3 (150-450); RBC Distribution Width CV 13.7 % (11.6-14.6); RBC Distribution Width SD 50.1 fl (35.1-43.9); Red Blood Count 3.89 M/mm3 (4.6-6.2); White Blood Count 9.8 K/mm3 (4.4-11.0)
[2019-11-22 05:46] LABS: Anion Gap 7 (5-15); BUN 34 mg/dL (7-18); BUN/Creat Ratio 20.6 RATIO (10-20); Calcium,Total 8.7 mg/dL (8.5-10.1); Chloride 112 mmol/L (98-107); Creatinine, Serum 1.65 mg/dL (0.70-1.30); EST Glomerular Filtration Rate 43 mL/min (>60); Est Glom Filt Rate - Afr Amer 52 mL/min (>60); Estimated Creatinine Clearance 29.41 ml/min; Glucose 114 mg/dL (74-106); Magnesium 2.3 mg/dL (1.6-2.6); Potassium 3.7 mmol/L (3.5-5.1); Sodium Level 144 mmol/L (136-145)
[2019-11-22] MEDS: Carbidopa/Levodopa 25/100 Tablet PO ×3 (05:52→16:24)
[2019-11-22] MEDS: hydrALAZINE 25 MG Tablet PO ×3 (05:52→21:13)
[2019-11-22] MEDS: Carvedilol 12.5 MG Tablet PO ×2 (05:53→21:14)
[2019-11-22] MEDS: Aspirin 81 MG TAB.CHEW PO (05:53)
[2019-11-22] MEDS: Clopidogrel Bisulfate 75 MG Tablet PO (05:55)
[2019-11-22 06:06] LABS: Bedside Glucose 109 mg/dL (70-110)
[2019-11-22 06:07] LABS: International Normalized Ratio 1.2; Prothrombin Time (Protime)PT. 14.2 SECONDS (11.7-14.9)
[2019-11-22 06:08] LABS: Partial Thromboplast Time 31.2 Seconds (24.1-36.2)
--- NOTE | 2019-11-22 11:03 | PCM.PROGNOTE ---
<Ge [employer] PROCESS CHECKER - Last Filed: 11/22/19 11:06> Patient Problems: Active and Suspected Problems CHIKA (acute kidney injury) (Acute) Heart failure (Acute) NSTEMI (non-ST elevated myocardial infarction) (Acute) Aspiration pneumonia (Acute) Subjective: Patient seen and examined. No acute events overnight. Denies current symptoms or complaints. To undergo heart cath today. - Physical Exam Vitals/I&O's: Vital Signs Temp Pulse Resp BP Pulse Ox 98.5 F 61 18 129/66 H 95 11/22/19 05:43 11/22/19 07:02 11/22/19 05:43 11/22/19 05:52 11/22/19 08:45 Oxygen Flow Rate (L/min) 1 Oxygen Delivery Method Nasal Cannula Weight: 220 lb 3.869 oz Body Mass Index (BMI) 44.6 Intake and Output for Last 24 Hours 11/20/19 11/21/19 11/22/19 23:59 23:59 23:59 Intake Total 218 / 218 700 / 700 60 / 60 Balance 218 / 218 700 / 700 60 / 60 General: Alert, Oriented x3, Cooperative HEENT: Atraumatic, PERRLA, EOMI, Normocephalic Neck: Supple, No JVD, Negative Carotid Bruits Lungs: Clear to auscultation, Normal air movement Cardiovascular: Regular rate, No murmurs Abdomen: Bowel Sounds Present, Soft, Non Tender, Non-Distended Extremities: No clubbing, No cyanosis, No edema, Capillary Refill Less than 3 Seconds Skin: No rashes, No breakdown Musculoskeletal: No Tenderness to Palpation of Joints or Extremities Neurological: Cranial nerves II-XII grossly intact, Neuro grossly intact Psych/Mental Status: Normal Affect, Appropriate Microbiology Past 72 Hours 11/14/19 20:25 Blood Culture (Wb) - Anticubital Right Blood Culture - Final No growth in 5 days. 11/14/19 19:15 Blood Culture (Wb) - Anticubital Left Blood Culture - Final No growth in 5 days. 11/19/19 11:50 Mucosa - Nasopharyngeal Respiratory Panel (PCR) - Final Laboratory Results 11/21/19 11:47: POC Glucose 114 H 11/21/19 17:15: POC Glucose 104 11/22/19 05:26: WBC 9.8, RBC 3.89 L, Hgb 11.6 L, Hct 38.4 L, MCV 98.7 H, MCH 29.8, MCHC 30.2 L, RDW Std Deviation 50.1 H, RDW Coeff of Sammi 13.7, Plt Count 210, MPV 11.1 11/22/19 05:26: Sodium 144, Potassium 3.7, Chloride 112 H, Carbon Dioxide 25.0, Anion Gap 7, BUN 34 H, Creatinine 1.65 H, Estim Creat Clear Calc 29.41, Est GFR (MDRD) Af Amer 52 L, Est GFR (MDRD) Non-Af 43 L, BUN/Creatinine Ratio 20.6 H, Glucose 114 H, Calcium 8.7, Magnesium 2.3 11/22/19 05:26: PT 14.2, INR 1.2, APTT 31.2 11/22/19 05:49: POC Glucose 109 Current Medications Acetaminophen (Tylenol) 650 mg PO Q6H PRN PRN PRN Reason: Pain 1-10 or Fever Last Admin: 11/22/19 04:24 Dose: 650 mg Documented by: Albuterol Sulfate (Ventolin Aerosols) 2.5 mg INHALATION Q2H PRN PRN PRN Reason: sob/wheezing [facility]) [facility] Last Admin: 11/21/19 09:10 Dose: 100 mg Documented by: Aspirin (Aspirin, Baby) 81 mg PO DAILY@0800 [facility] Last Admin: 11/22/19 05:53 Dose: 81 mg Documented by: Atorvastatin Calcium (Lipitor) 40 mg PO QHS [facility] Last Admin: 11/21/19 21:09 Dose: 40 mg Documented by: Brimonidine Tartrate (Brimonidine 0.2% 5ml Bottle) 1 drop EACH EYE BID [facility] Last Admin: 11/21/19 21:08 Dose: 1 drop Documented by: Carbidopa/Levodopa (Sinemet) 2 tablet PO TIDAC [facility] Last Admin: 11/22/19 05:52 Dose: 2 tablet Documented by: Carvedilol (Coreg) 12.5 mg PO BID [facility] Last Admin: 11/22/19 05:53 Dose: 12.5 mg Documented by: Clopidogrel Bisulfate (Plavix) 75 mg PO DAILY [facility] Last Admin: 11/22/19 05:55 Dose: 75 mg Documented by: Dextrose (D50w Syringe) 0 gm IV X1 PRN; Protocol PRN Reason: Hypoglycemia Furosemide (Lasix) 40 mg IV BIDLX [facility] Last Admin: 11/19/19 06:56 Dose: Not Given Documented by: Glucagon () 1 mg IM .X1 PRN PRN Reason: Hypoglycemia Heparin Sodium (Porcine) (Heparin Na) 0 unit IV UD PRN; Protocol PRN Reason: dose adjustment Last Admin: 11/18/19 03:07 Dose: 1,000 unit Documented by: Hydralazine HCl (Apresoline) 25 mg PO TID [facility] Last Admin: 11/22/19 05:52 Dose: 25 mg Documented by: Sodium Chloride () 250 mls @ 15 mls/hr IV .[id number] PRN PRN Reason: Saline Flush Last Infusion: 11/19/19 02:50 Dose: 0 mls/hr Documented by: Sodium Chloride () 250 mls @ 15 mls/hr IV .[id number] PRN PRN Reason: Additional IVPB Infusion Sodium Chloride () 1,000 mls @ 0 mls/hr IV .Q0M [facility] Insulin Human Lispro (Humalog Kwikpen (Bkc)) 0 unit SC ACHS [facility]; Protocol Last Admin: 11/22/19 05:53 Dose: Not Given Documented by: Lactobacillus Acidophilus (Acidophilus) 1 tablet PO TID [facility] Last Admin: 11/22/19 05:52 Dose: 1 tablet Documented by: Ondansetron HCl (Zofran) 4 mg IV Q8H PRN PRN PRN Reason: NAUSEA/VOMITING Pantoprazole Sodium (Protonix) 40 mg PO DAILY [facility] Last Admin: 11/21/19 09:11 Dose: 40 mg Documented by: Saliva Substitute (Biotene) 15 ml MM 5X/DAY PRN PRN Reason: DRY MOUTH Last Admin: 11/20/19 14:23 Dose: 15 ml Documented by: Sodium Chloride () 10 - 40 ml IV UD PRN PRN Reason: SALINE FLUSH Last Admin: 11/21/19 21:07 Dose: 10 ml Documented by: Medical Necessity - Tobacco Use Smoking Status: Former smoker Assessment/Plan All Active Problems Weakness (Acute) Dysuria (Acute) CHIKA (acute kidney injury) (Acute) Heart failure (Acute) NSTEMI (non-ST elevated myocardial infarction) (Acute) Aspiration pneumonia (Acute) 1. NSTEMI-continue aspirin, statin, Plavix, carvedilol. Cardiology following. To undergo heart cath today. 2. Acute hypoxic respiratory failure secondary to acute heart failure with reduced ejection fraction and aspiration pneumonia-continue supplement oxygen to maintain O2 at or above 90%. Oxygen currently stable on room air. Pulmonary medicine/cardiology following. 3. Acute heart failure with reduced ejection fraction-echocardiogram demonstrates an EF of 45%, stage I diastolic dysfunction, pulmonary artery systolic pressure 50 to 55 mmHg. BNP greater than [address] demonstrates bilateral upper lobe pneumonia greater on the left than the right. Small bilateral pleural effusions. IV Lasix discontinued, transitioned to oral Lasix 40 mg daily. Strict I&O. Daily weight. 4. Aspiration pneumonia, dysphagia-completed treatment with IV Zosyn. ID and pulmonary medicine following. Continue speech therapy eval. 5. Severe sepsis secondary to pneumonia and UTI-completed treatment with IV zosyn as noted above. 6. Acute kidney injury-improved. Nephrology following. Trend BMP. 7. Acute rhabdomyolysis-resolved. 8. Hypertension-continue carvedilol. Amlodipine discontinued. 9. Parkinson's disease- PT/OT. Continue carbidopa/levodopa. 10. Paroxysmal atrial fibrillation/nonsustained V. tach-history of ablation. AICD in place. Continue carvedilol. 11. Type 2 diabetes [id number] with sliding scale insulin. 12. Hypernatremia-improving, trend BMP. DVT prophylaxis- SCDs Discharge planning: SNF pending heart cath/medically stable. This patient was seen by HUNTER Reyes under the supervision of Dr. Bullock. <Aleksandr Bullock - Last Filed: 11/22/19 11:48> - Physical Exam Vitals/I&O's: Vital Signs Temp Pulse Resp BP Pulse Ox 96.8 F L 69 16 118/54 L 96 11/22/19 11:25 11/22/19 11:25 11/22/19 11:25 11/22/19 11:25 11/22/19 11:25 Oxygen Flow Rate (L/min) 1 Oxygen Delivery Method Room Air Weight: 99.9 kg Body Mass Index (BMI) 44.6 Intake and Output for Last 24 Hours 11/20/19 11/21/19 11/22/19 23:59 23:59 23:59 Intake Total 218 / 218 700 / 700 60 / 60 Balance 218 / 218 700 / 700 60 / 60 Microbiology Past 72 Hours 11/14/19 20:25 Blood Culture (Wb) - Anticubital Right Blood Culture - Final No growth in 5 days. 11/14/19 19:15 Blood Culture (Wb) - Anticubital Left Blood Culture - Final No growth in 5 days. 11/19/19 11:50 Mucosa - Nasopharyngeal Respiratory Panel (PCR) - Final Laboratory Results 11/21/19 11:47: POC Glucose 114 H 11/21/19 17:15: POC Glucose 104 11/22/19 05:26: WBC 9.8, RBC 3.89 L, Hgb 11.6 L, Hct 38.4 L, MCV 98.7 H, MCH 29.8, MCHC 30.2 L, RDW Std Deviation 50.1 H, RDW Coeff of Sammi 13.7, Plt Count 210, MPV 11.1 11/22/19 05:26: Sodium 144, Potassium 3.7, Chloride 112 H, Carbon Dioxide 25.0, Anion Gap 7, BUN 34 H, Creatinine 1.65 H, Estim Creat Clear Calc 29.41, Est GFR (MDRD) Af Amer 52 L, Est GFR (MDRD) Non-Af 43 L, BUN/Creatinine Ratio 20.6 H, Glucose 114 H, Calcium 8.7, Magnesium 2.3 11/22/19 05:26: PT 14.2, INR 1.2, APTT 31.2 11/22/19 05:49: POC Glucose 109 Current Medications Acetaminophen (Tylenol) 650 mg PO Q6H PRN PRN PRN Reason: Pain 1-10 or Fever Last Admin: 11/22/19 04:24 Dose: 650 mg Documented by: Albuterol Sulfate (Ventolin Aerosols) 2.5 mg INHALATION Q2H PRN PRN PRN Reason: sob/wheezing Allopurinol (Zyloprim) [facility] Last Admin: 11/22/19 11:45 Dose: 100 mg Documented by: Aspirin (Aspirin, Baby) 81 mg PO DAILY@0800 [facility] Last Admin: 11/22/19 05:53 Dose: 81 mg Documented by: Atorvastatin Calcium (Lipitor) 40 mg PO QHS [facility] Last Admin: 11/21/19 21:09 Dose: 40 mg Documented by: Brimonidine Tartrate (Brimonidine 0.2% 5ml Bottle) 1 drop EACH EYE BID [facility] Last Admin: 11/22/19 11:45 Dose: 1 drop Documented by: Carbidopa/Levodopa (Sinemet) 2 tablet PO TIDAC [facility] Last Admin: 11/22/19 11:45 Dose: 2 tablet Documented by: Carvedilol (Coreg) 12.5 mg PO BID [facility] Last Admin: 11/22/19 05:53 Dose: 12.5 mg Documented by: Clopidogrel Bisulfate (Plavix) 75 mg PO DAILY [facility] Last Admin: 11/22/19 05:55 Dose: 75 mg Documented by: Dextrose (D50w Syringe) 0 gm IV X1 PRN; Protocol PRN Reason: Hypoglycemia Furosemide (Lasix) 40 mg PO DAILY [facility] Glucagon () 1 mg IM .X1 PRN PRN Reason: Hypoglycemia Heparin Sodium (Porcine) (Heparin Na) 0 unit IV UD PRN; Protocol PRN Reason: dose adjustment Last Admin: 11/18/19 03:07 Dose: 1,000 unit Documented by: Hydralazine HCl (Apresoline) 25 mg PO TID [facility] Last Admin: 11/22/19 05:52 Dose: 25 mg Documented by: Sodium Chloride () 250 mls @ 15 mls/hr IV .[id number] PRN PRN Reason: Saline Flush Last Infusion: 11/19/19 02:50 Dose: 0 mls/hr Documented by: Sodium Chloride () 250 mls @ 15 mls/hr IV .[id number] PRN PRN Reason: Additional IVPB Infusion Sodium Chloride () 1,000 mls @ 0 mls/hr IV .Q0M [facility] Insulin Human Lispro (Humalog Kwikpen (Bkc)) 0 unit SC ACHS [facility]; Protocol Last Admin: 11/22/19 11:42 Dose: Not Given Documented by: Lactobacillus Acidophilus (Acidophilus) 1 tablet PO TID [facility] Last Admin: 11/22/19 05:52 Dose: 1 tablet Documented by: Ondansetron HCl (Zofran) 4 mg IV Q8H PRN PRN PRN Reason: NAUSEA/VOMITING Pantoprazole Sodium (Protonix) 40 mg PO DAILY [facility] Last Admin: 11/22/19 11:45 Dose: 40 mg Documented by: Saliva Substitute (Biotene) 15 ml MM 5X/DAY PRN PRN Reason: DRY MOUTH Last Admin: 11/20/19 14:23 Dose: 15 ml Documented by: Sodium Chloride () 10 - 40 ml IV UD PRN PRN Reason: SALINE FLUSH Last Admin: 11/21/19 21:07 Dose: 10 ml Documented by: Assessment/Plan This patient was seen in conjunction with HUNTER Reyes. I have independently interviewed and examined the patient and reviewed pertinent historical, laboratory, and other data. Please refer to HUNTER Reyes note for details of this patient's presentation, findings, and recommendations. I have reviewed HUNTER Reyes note and concur with documented findings. In brief, patient 74-year-old gentleman with multiple comorbidities admitted with progressive shortness of breath. An assessment of acute hypoxic respiratory failure secondary to combination of CHF pneumonia made admitted for subsequent management. Patient was initially managed on noninvasive ventilation BiPAP however his condition deteriorated resulting in patient being intubated. Weaned off the vent on 11/14/2019. 11/19/2019: Patient seen for kidney function continues to worsen. Sodium levels up to 152 from 146. Patient Lasix held. Started on D5W with serial monitoring of electrolytes ordered 11/20/2019: Patient seen sodium level still remain elevated, however there is been slight improvement in kidney function. Plan is for patient to undergo left heart catheterization pending kidney function improvement 11/21/2019; patient seen much more awake compared to the previous day. His sodium levels are finally trending down plan is for patient to complete Zosyn therapy on 11/21/2019 11/22/2019; patient was kept n.p.o. with plans for patient to undergo left heart catheterization this morning. Physical Examination: GENERAL: Frail looking HEENT: Atraumatic; EYES; Anicteric, NECK; supple, normal thyroid, RESPIRATORY: Diminished to auscultation CARDIOVASCULAR: Regular S1 S2, GI: soft, normoactive bowel sounds, : No Renal angle tenderness; EXTREMITIES: edema, no clubbing, NEURO: Awake; no lateralizing signs. PSYCH; Flat affect Assessment: 1. Acute hypoxic respiratory failure 2. Severe sepsis secondary to pneumonia with suspected multidrug organisms 3. Non-ST segment elevation HI 4. Acute kidney injury 5. Acute rhabdomyolysis 6. Acute congestive heart failure with reduced ejection fraction?45% 7. Pulmonary hypertension with pulmonary arterial systolic pressure of 50 to 55 mmHg 8. Parkinson's disease 9. Dysphagia 10. Non Sustained VT 11. Hypernatremia Recommendations: 1. I have discussed the results of my overview and impressions with the patient 2. Options for management were reviewed Inpatient E&M: [id number] Subs Hosp L2
[2019-11-22] MEDS: Allopurinol 100 MG Tablet PO (11:45)
[2019-11-22] MEDS: Pantoprazole Sodium 40 MG Tablet PO (11:45)
[2019-11-22] MEDS: BRIMONIDINE 0.2% 5ML BOTTLE 1 DRP EACH EYE ×2 (11:45→21:14)
[2019-11-22 12:01] LABS: Bedside Glucose 107 mg/dL (70-110)
[2019-11-22] MEDS: 0.9% Normal Saline 1,000 ML 100 ML IV (12:13)
--- NOTE | 2019-11-22 12:36 | CASEMGMT ---
Social Work Per MOHSEN Hennessy pt will need transferred to tertiary care facility. JOSE met with pt and he is aware of this. JOSE informed pt that he can talk with care managers at tertiary facility about d/c to [facility] if this is still pt wish at this time. Phone call to Deya at [facility] and informed that pt will be transferred out at this time and not coming to [facility]. CHARO Dougherty
--- NOTE | 2019-11-22 14:24 | PN.RENAL_ITS ---
Patient Problems: Active and Suspected Problems CHIKA (acute kidney injury) (Acute) Heart failure (Acute) NSTEMI (non-ST elevated myocardial infarction) (Acute) Aspiration pneumonia (Acute) Subjective: No new complaints - Physical Exam Vitals/I&O's: Vital Signs Temp Pulse Resp BP Pulse Ox 97.5 F L 68 16 124/53 H 97 11/22/19 12:10 11/22/19 14:06 11/22/19 13:38 11/22/19 14:06 11/22/19 13:38 Oxygen Flow Rate (L/min) 1 Oxygen Delivery Method Room Air Weight: 99.9 kg Body Mass Index (BMI) 44.6 Intake and Output for Last 24 Hours 11/20/19 11/21/19 11/22/19 23:59 23:59 23:59 Intake Total 218 / 218 700 / 700 60 / 60 Balance 218 / 218 700 / 700 60 / 60 General: Alert, Oriented x3, Cooperative HEENT: Atraumatic, PERRLA, EOMI, Normocephalic Neck: Supple, No JVD, Negative Carotid Bruits Lungs: Clear to auscultation, Normal air movement Cardiovascular: Regular rate, No murmurs Abdomen: Bowel Sounds Present, Soft, Non Tender Extremities: No edema, Capillary Refill Less than 3 Seconds Skin: No rashes, No breakdown Musculoskeletal: No Tenderness to Palpation of Joints or Extremities Neurological: Cranial nerves II-XII grossly intact Psych/Mental Status: Normal Affect, Appropriate Microbiology Past 72 Hours 11/14/19 20:25 Blood Culture (Wb) - Anticubital Right Blood Culture - Final No growth in 5 days. 11/14/19 19:15 Blood Culture (Wb) - Anticubital Left Blood Culture - Final No growth in 5 days. 11/19/19 11:50 Mucosa - Nasopharyngeal Respiratory Panel (PCR) - Final Laboratory Results 11/21/19 17:15: POC Glucose 104 11/22/19 05:26: WBC 9.8, RBC 3.89 L, Hgb 11.6 L, Hct 38.4 L, MCV 98.7 H, MCH 29.8, MCHC 30.2 L, RDW Std Deviation 50.1 H, RDW Coeff of Sammi 13.7, Plt Count 210, MPV 11.1 11/22/19 05:26: Sodium 144, Potassium 3.7, Chloride 112 H, Carbon Dioxide 25.0, Anion Gap 7, BUN 34 H, Creatinine 1.65 H, Estim Creat Clear Calc 29.41, Est GFR (MDRD) Af Amer 52 L, Est GFR (MDRD) Non-Af 43 L, BUN/Creatinine Ratio 20.6 H, Glucose 114 H, Calcium 8.7, Magnesium 2.3 11/22/19 05:26: PT 14.2, INR 1.2, APTT 31.2 11/22/19 05:49: POC Glucose 109 11/22/19 11:42: POC Glucose 107 Current Medications Acetaminophen (Tylenol) 650 mg PO Q6H PRN PRN PRN Reason: Pain 1-10 or Fever Last Admin: 11/22/19 04:24 Dose: 650 mg Documented by: Albuterol Sulfate (Ventolin Aerosols) 2.5 mg INHALATION Q2H PRN PRN PRN Reason: sob/wheezing [facility] Last Admin: 11/22/19 11:45 Dose: 100 mg Documented by: Aspirin (Aspirin, Baby) 81 mg PO DAILY@0800 [facility] Last Admin: 11/22/19 05:53 Dose: 81 mg Documented by: Atorvastatin Calcium (Lipitor) 40 mg PO QHS [facility] Last Admin: 11/21/19 21:09 Dose: 40 mg Documented by: Brimonidine Tartrate (Brimonidine 0.2% 5ml Bottle) 1 drop EACH EYE BID [facility] Last Admin: 11/22/19 11:45 Dose: 1 drop Documented by: Carbidopa/Levodopa (Sinemet) 2 tablet PO TIDAC [facility] Last Admin: 11/22/19 11:45 Dose: 2 tablet Documented by: Carvedilol (Coreg) 12.5 mg PO BID [facility] Last Admin: 11/22/19 05:53 Dose: 12.5 mg Documented by: Clopidogrel Bisulfate (Plavix) 75 mg PO DAILY [facility] Last Admin: 11/22/19 05:55 Dose: 75 mg Documented by: Dextrose (D50w Syringe) 0 gm IV X1 PRN; Protocol PRN Reason: Hypoglycemia Furosemide (Lasix) 40 mg PO DAILY [facility] Glucagon () 1 mg IM .X1 PRN PRN Reason: Hypoglycemia Heparin Sodium (Porcine) (Heparin Na) 0 unit IV UD PRN; Protocol PRN Reason: dose adjustment Last Admin: 11/18/19 03:07 Dose: 1,000 unit Documented by: Hydralazine HCl (Apresoline) 25 mg PO TID [facility] Last Admin: 11/22/19 14:06 Dose: 25 mg Documented by: Sodium Chloride () 250 mls @ 15 mls/hr IV .[id number] PRN PRN Reason: Saline Flush Last Infusion: 11/19/19 02:50 Dose: 0 mls/hr Documented by: Sodium Chloride () 250 mls @ 15 mls/hr IV .[id number] PRN PRN Reason: Additional IVPB Infusion Sodium Chloride () 1,000 mls @ 0 mls/hr IV .Q0M [facility] Sodium Chloride () 1,000 mls @ 100 mls/hr IV .Q10H [facility] Last Admin: 11/22/19 12:13 Dose: 100 mls/hr Documented by: Insulin Human Lispro (Humalog Kwikpen (Bkc)) 0 unit SC ACHS [facility]; Protocol Last Admin: 11/22/19 11:42 Dose: Not Given Documented by: Lactobacillus Acidophilus (Acidophilus) 1 tablet PO TID [facility] Last Admin: 11/22/19 14:19 Dose: 1 tablet Documented by: Ondansetron HCl (Zofran) 4 mg IV Q8H PRN PRN PRN Reason: NAUSEA/VOMITING Pantoprazole Sodium (Protonix) 40 mg PO DAILY [facility] Last Admin: 11/22/19 11:45 Dose: 40 mg Documented by: Saliva Substitute (Biotene) 15 ml MM 5X/DAY PRN PRN Reason: DRY MOUTH Last Admin: 11/20/19 14:23 Dose: 15 ml Documented by: Sodium Chloride () 10 - 40 ml IV UD PRN PRN Reason: SALINE FLUSH Last Admin: 11/21/19 21:07 Dose: 10 ml Documented by: Medical Necessity - Tobacco Use Smoking Status: Former smoker Assessment/Plan All Active Problems Weakness (Acute) Dysuria (Acute) CHIKA (acute kidney injury) (Acute) Heart failure (Acute) NSTEMI (non-ST elevated myocardial infarction) (Acute) Aspiration pneumonia (Acute) 1. 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 Baseline SCr had been around 1.9 mg/dL. CKD is likely due to diabetic nephropathy. CHIKA is likely due to prerenal CHIKA -> ischemic ATN from sepsis and heart failure (cardiorenal syndrome). renal US reviewed cr is down to 1.6. baseline as of mar this year was 1.8. cardiac cath ok from my end since he is close to baseline 2. Severe sepsis. Due to UTI and pneumonia. Clinically improved. Hemodynamically stable. ID note reviewed. likely aspiration events. on modified diet now 3. Acute hypoxic respiratory failure. Off oxygen today 4. Hypernatremia. better.
--- NOTE | 2019-11-22 14:34 | CL.D_ITS ---
Patient Name: Ada LEAVITT Study Date: 11/22/2019 Performing: Chasity Carlson MD Ht: 61.81 inches 157 cm : 1945 Wt: 220.46 lbs 100 kg Age: 74 Gender: male BSA: 1.99 PROCEDURE(S) PERFORMED [id number] CLINICAL PROFILE AND INDICATIONS Indications: ACS > 24 hrs Heart Failure: NYHA Class: 3, Newly Diagnosed: Yes, Heart Failure Type: Systolic Stress/Imaging Stress/Image Study Performed: No CAD Presentations: Non-STEMI. Symptom onset Date/Time: Time Not Available CONCLUSIONS Multivessel coronary artery disease RECOMMENDATIONS Surgery consult for coronary revascularization DESCRIPTION OF PROCEDURE The patient arrived to the procedure lab. The risks and benefits of the procedure as well as a full d escription of our services here and current unavailability of surgical backup were fully explained to the patient and/or their significant other prior to the catheterization. The Timeout was completed, verifying the correct patient and procedure. The patient's procedural site was prepped and draped in the usual fashion. Local anesthetic was given subcutaneously to right radial region with Lidocaine 2% . Using a modified Seldinger technique, arterial access was obtained via the right radial artery, a 6 Fr sheath was inserted. Left Coronary Artery selective angiography was performed in multiple views u sing a 5 Fr. JL3.5 catheter. Right Coronary Artery selective angiography was then performed in multip le views using a 5 Fr. JR 4 catheter.The arterial sheath was pulled and a TR Band was applied for hem ostasis w/ 11ml air CORONARY ANGIOGRAPHY DOMINANCE: Right Dominant LEFT MAIN: Angiographically normal LEFT ANTERIOR DESCENDING ARTERY: PROX LAD: 80 % Stenosis MID LAD: 100 % Stenosis DIAGONAL 1: Ostial - 80 % Stenosis. This is a small vessel. The D2 is a medium to large vessel that f aintly fills via L sided collaterals. The mid and distal LAD fill via L sided collaterals as well. CIRCUMFLEX ARTERY: MID CIRC: 50 % Stenosis OM 1: Proximal - 95 % Stenosis RIGHT CORONARY ARTERY: PROX RCA: 90 % Stenosis MID RCA: 95 % Stenosis DISTAL RCA: 50 % Stenosis RT PDA: Mid - 50 % Stenosis COMPLICATIONS No Complications PROCEDURE MEDICATIONS Versed 1 mg IV Fentanyl 50 mcg IV Oxygen: 2 L/min via nasal cannula Heparin given IA 11/22/2019 10:43:20 Verapamil 2.5mg, Ntg 100mcgs, 3000 units of Heparin given IA 11/22/2019 10:43:20 IV Bolus: .9 NaCl ml total 11/22/2019 10:50:56 SUMMARY OF HEMODYNAMIC DATA Time AIR REST ECG 10:06:36 AO 89/53 (70) SA 10:48:14 LV 121/10, 21 10:56:57 LV 125/9, 20 10:57:03 AO 116/67 (88) 10:58:43 Signed By Chasity Carlson MD On 11/22/2019 2:33:23 PM Chasity Carlson MD
--- NOTE | 2019-11-22 14:38 | PCM.PN.ID ---
Patient Problems: Active and Suspected Problems CHIKA (acute kidney injury) (Acute) Heart failure (Acute) NSTEMI (non-ST elevated myocardial infarction) (Acute) Aspiration pneumonia (Acute) Subjective: Feeling ok, no fever, no cough, no SOB - Physical Exam Vitals/I&O's: Vital Signs Temp Pulse Resp BP Pulse Ox 97.5 F L 64 18 117/48 L 94 11/22/19 12:10 11/22/19 14:18 11/22/19 14:18 11/22/19 14:18 11/22/19 14:18 Oxygen Flow Rate (L/min) 1 Oxygen Delivery Method Room Air Weight: 99.9 kg Body Mass Index (BMI) 44.6 Intake and Output for Last 24 Hours 11/20/19 11/21/19 11/22/19 23:59 23:59 23:59 Intake Total 218 / 218 700 / 700 60 / 60 Balance 218 / 218 700 / 700 60 / 60 General: Alert, Cooperative, No apparent distress Lungs: Clear to auscultation, Normal air movement Cardiovascular: Regular rate, Regular Rhythm Abdomen: Soft, Non Tender, Non-Distended Skin: No rashes Microbiology Past 72 Hours 11/14/19 20:25 Blood Culture (Wb) - Anticubital Right Blood Culture - Final No growth in 5 days. 11/14/19 19:15 Blood Culture (Wb) - Anticubital Left Blood Culture - Final No growth in 5 days. 11/19/19 11:50 Mucosa - Nasopharyngeal Respiratory Panel (PCR) - Final Laboratory Results 11/21/19 17:15: POC Glucose 104 11/22/19 05:26: WBC 9.8, RBC 3.89 L, Hgb 11.6 L, Hct 38.4 L, MCV 98.7 H, MCH 29.8, MCHC 30.2 L, RDW Std Deviation 50.1 H, RDW Coeff of Sammi 13.7, Plt Count 210, MPV 11.1 11/22/19 05:26: Sodium 144, Potassium 3.7, Chloride 112 H, Carbon Dioxide 25.0, Anion Gap 7, BUN 34 H, Creatinine 1.65 H, Estim Creat Clear Calc 29.41, Est GFR (MDRD) Af Amer 52 L, Est GFR (MDRD) Non-Af 43 L, BUN/Creatinine Ratio 20.6 H, Glucose 114 H, Calcium 8.7, Magnesium 2.3 11/22/19 05:26: PT 14.2, INR 1.2, APTT 31.2 11/22/19 05:49: POC Glucose 109 11/22/19 11:42: POC Glucose 107 Current Medications Acetaminophen (Tylenol) 650 mg PO Q6H PRN PRN PRN Reason: Pain 1-10 or Fever Last Admin: 11/22/19 04:24 Dose: 650 mg Documented by: Albuterol Sulfate (Ventolin Aerosols) 2.5 mg INHALATION Q2H PRN PRN PRN Reason: sob/wheezing Allopurinol (Zyloprim) 100 mg PO DAILYCM [facility] Last Admin: 11/22/19 11:45 Dose: 100 mg Documented by: Aspirin (Aspirin, Baby) 81 mg PO DAILY@0800 [facility] Last Admin: 11/22/19 05:53 Dose: 81 mg Documented by: Atorvastatin Calcium (Lipitor) 40 mg PO QHS [facility] Last Admin: 11/21/19 21:09 Dose: 40 mg Documented by: Brimonidine Tartrate (Brimonidine 0.2% 5ml Bottle) 1 drop EACH EYE BID [facility] Last Admin: 11/22/19 11:45 Dose: 1 drop Documented by: Carbidopa/Levodopa (Sinemet) 2 tablet PO TIDAC [facility] Last Admin: 11/22/19 11:45 Dose: 2 tablet Documented by: Carvedilol (Coreg) 12.5 mg PO BID [facility] Last Admin: 11/22/19 05:53 Dose: 12.5 mg Documented by: Clopidogrel Bisulfate (Plavix) 75 mg PO DAILY [facility] Last Admin: 11/22/19 05:55 Dose: 75 mg Documented by: Dextrose (D50w Syringe) 0 gm IV X1 PRN; Protocol PRN Reason: Hypoglycemia Furosemide (Lasix) 40 mg PO DAILY [facility] Glucagon () 1 mg IM .X1 PRN PRN Reason: Hypoglycemia Heparin Sodium (Porcine) (Heparin Na) 0 unit IV UD PRN; Protocol PRN Reason: dose adjustment Last Admin: 11/18/19 03:07 Dose: 1,000 unit Documented by: Hydralazine HCl (Apresoline) 25 mg PO TID [facility] Last Admin: 11/22/19 14:06 Dose: 25 mg Documented by: Sodium Chloride () 250 mls @ 15 mls/hr IV .[id number] PRN PRN Reason: Saline Flush Last Infusion: 11/19/19 02:50 Dose: 0 mls/hr Documented by: Sodium Chloride () 250 mls @ 15 mls/hr IV .[id number] PRN PRN Reason: Additional IVPB Infusion Sodium Chloride () 1,000 mls @ 0 mls/hr IV .Q0M JACKSON Sodium Chloride () 1,000 mls @ 100 mls/hr IV .Q10H [place]ACK[place] Last Admin: 11/22/19 12:13 Dose: 100 mls/hr Documented by: Insulin Human Lispro (Humalog Kwikpen (Bkc)) 0 unit SC ACHS [facility]; Protocol Last Admin: 11/22/19 11:42 Dose: Not Given Documented by: Lactobacillus Acidophilus (Acidophilus) 1 tablet PO TID [facility] Last Admin: 11/22/19 14:19 Dose: 1 tablet Documented by: Ondansetron HCl (Zofran) 4 mg IV Q8H PRN PRN PRN Reason: NAUSEA/VOMITING Pantoprazole Sodium (Protonix) 40 mg PO DAILY [facility] Last Admin: 11/22/19 11:45 Dose: 40 mg Documented by: Saliva Substitute (Biotene) 15 ml MM 5X/DAY PRN PRN Reason: DRY MOUTH Last Admin: 11/20/19 14:23 Dose: 15 ml Documented by: Sodium Chloride () 10 - 40 ml IV UD PRN PRN Reason: SALINE FLUSH Last Admin: 11/21/19 21:07 Dose: 10 ml Documented by: Medical Necessity - Tobacco Use Smoking Status: Former smoker Route of nutrition/ use of supplements: [] Nutritional Intake: [] IV Site: [] Barker Catheter: [] - Assessment/Plan Antibiotics: [] Assessment/Plan: [] Active and Suspected Problems CHIKA (acute kidney injury) (Acute) Heart failure (Acute) NSTEMI (non-ST elevated myocardial infarction) (Acute) No fever, wbc normal, O2 improving. Ongoing infiltrate on chest imaging, may be related to ongoing aspiration episodes prior to being made NPO. Sputum cx showed mixed oral isidra but 4+ wbc. Ucx with 11-25k ecoli. CHIKA improving. Feeling better. On zosyn starting 11/13, completed 11/20. Will sign off
[2019-11-22 16:21] LABS: Bedside Glucose 106 mg/dL (70-110)
--- NOTE | 2019-11-22 18:08 | NURSING ---
[facility] called to check on bed, bed request made, no beds available.
[2019-11-22] MEDS: Atorvastatin Calcium 40 MG Tablet PO (21:13)
[2019-11-22 23:06] LABS: Bedside Glucose 95 mg/dL (70-110)
[2019-11-23] VITALS (13 sets, daily range): BP systolic 122–141; BP diastolic 58–71; PULSE 62–73; RESP 16–20; TEMP 36.2–36.7; O2SAT 94–99
[2019-11-23 06:34] LABS: Hemoglobin 11.9 g/dL (13.0-16.5); Mean Corp Hgb Conc 30.5 g/dL (32-36); Mean Corpuscular Hgb 29.5 pg (27.0-32.0); Mean Corpuscular Volume 96.5 fL (80-94); Mean Platelet Vol. 11.4 fl (6.2-12.0); Platelet Count 229 K/mm3 (150-450); RBC Distribution Width CV 13.6 % (11.6-14.6); RBC Distribution Width SD 48.4 fl (35.1-43.9); Red Blood Count 4.04 M/mm3 (4.6-6.2); White Blood Count 8.8 K/mm3 (4.4-11.0)
[2019-11-23] MEDS: hydrALAZINE 25 MG Tablet PO ×3 (06:43→21:06)
[2019-11-23] MEDS: Carbidopa/Levodopa 25/100 Tablet PO ×3 (06:44→17:23)
[2019-11-23 07:06] LABS: Anion Gap 5 (5-15); BUN 33 mg/dL (7-18); Calcium,Total 8.7 mg/dL (8.5-10.1); Chloride 109 mmol/L (98-107); EST Glomerular Filtration Rate 48 mL/min (>60); Est Glom Filt Rate - Afr Amer 59 mL/min (>60); Estimated Creatinine Clearance 32.36 ml/min; Glucose 106 mg/dL (74-106); Potassium 3.8 mmol/L (3.5-5.1); Sodium Level 141 mmol/L (136-145)
[2019-11-23 07:10] LABS: Bedside Glucose 108 mg/dL (70-110)
[2019-11-23] MEDS: Carvedilol 12.5 MG Tablet PO ×2 (09:27→21:06)
[2019-11-23] MEDS: Pantoprazole Sodium 40 MG Tablet PO (09:27)
[2019-11-23] MEDS: Allopurinol 100 MG Tablet PO (09:27)
[2019-11-23] MEDS: Clopidogrel Bisulfate 75 MG Tablet PO (09:27)
[2019-11-23] MEDS: Aspirin 81 MG TAB.CHEW PO (09:27)
[2019-11-23] MEDS: Furosemide 40 MG Tablet PO (09:28)
[2019-11-23] MEDS: BRIMONIDINE 0.2% 5ML BOTTLE 1 DRP EACH EYE ×2 (09:28→21:07)
[2019-11-23 11:45] LABS: Bedside Glucose 112 mg/dL (70-110)
--- NOTE | 2019-11-23 12:53 | PN_ITS ---
<Minoo Rasmussen DIAMOND CLEAVER - Last Filed: 11/23/19 12:56> Patient Problems: Active and Suspected Problems CHIKA (acute kidney injury) (Acute) Heart failure (Acute) NSTEMI (non-ST elevated myocardial infarction) (Acute) Aspiration pneumonia (Acute) Subjective: Patient seen and examined. No acute events overnight. Denies chest pain, shortness of breath. Awaiting bed at [facility]. - Physical Exam Vitals/I&O's: Vital Signs Temp Pulse Resp BP Pulse Ox 97.1 F L 73 16 133/58 H 99 11/23/19 09:24 11/23/19 09:24 11/23/19 09:24 11/23/19 09:24 11/23/19 09:24 Oxygen Flow Rate (L/min) 2 Oxygen Delivery Method Nasal Cannula Weight: 223 lb 15.834 oz Body Mass Index (BMI) 44.6 Intake and Output for Last 24 Hours 11/21/19 11/22/19 11/23/19 23:59 23:59 23:59 Intake Total 700 / 700 903.33 / 903.33 120 / 120 Balance 700 / 700 903.33 / 903.33 120 / 120 General: Alert, Oriented x3, Cooperative HEENT: Atraumatic, PERRLA, EOMI, Normocephalic Neck: Supple, No JVD, Negative Carotid Bruits Lungs: Clear to auscultation, Normal air movement Cardiovascular: Regular rate, No murmurs Abdomen: Bowel Sounds Present, Soft, Non Tender, Non-Distended Extremities: No clubbing, No cyanosis, No edema, Capillary Refill Less than 3 Seconds Skin: No rashes, No breakdown Musculoskeletal: No Tenderness to Palpation of Joints or Extremities Neurological: Cranial nerves II-XII grossly intact, Neuro grossly intact Psych/Mental Status: Normal Affect, Appropriate Laboratory Results 11/22/19 16:11: POC Glucose 106 11/22/19 21:08: POC Glucose 95 11/23/19 05:52: WBC 8.8, RBC 4.04 L, Hgb 11.9 L, Hct 39.0 L, MCV 96.5 H, MCH 29.5, MCHC 30.5 L, RDW Std Deviation 48.4 H, RDW Coeff of Sammi 13.6, Plt Count 229, MPV 11.4 11/23/19 05:52: Sodium 141, Potassium 3.8, Chloride 109 H, Carbon Dioxide 27.0, Anion Gap 5, BUN 33 H, Creatinine 1.50 H, Estim Creat Clear Calc 32.36, Est GFR (MDRD) Af Amer 59 L, Est GFR (MDRD) Non-Af 48 L, BUN/Creatinine Ratio 22.0 H, Glucose 106, Calcium 8.7 11/23/19 06:40: POC Glucose 108 11/23/19 11:43: POC Glucose 112 H Current Medications Acetaminophen (Tylenol) 650 mg PO Q6H PRN PRN PRN Reason: Pain 1-10 or Fever Last Admin: 11/22/19 21:16 Dose: 650 mg Documented by: Albuterol Sulfate (Ventolin Aerosols) 2.5 mg INHALATION Q2H PRN PRN PRN Reason: sob/wheezing [facility] Last Admin: 11/23/19 09:27 Dose: 100 mg Documented by: Aspirin (Aspirin, Baby) 81 mg PO DAILY@0800 [facility] Last Admin: 11/23/19 09:27 Dose: 81 mg Documented by: Atorvastatin Calcium (Lipitor) 40 mg PO QHS [facility] Last Admin: 11/22/19 21:13 Dose: 40 mg Documented by: Brimonidine Tartrate (Brimonidine 0.2% 5ml Bottle) 1 drop EACH EYE BID [facility] Last Admin: 11/23/19 09:28 Dose: 1 drop Documented by: Carbidopa/Levodopa (Sinemet) 2 tablet PO TIDAC [facility] Last Admin: 11/23/19 11:47 Dose: 2 tablet Documented by: Carvedilol (Coreg) 12.5 mg PO BID [facility] Last Admin: 11/23/19 09:27 Dose: 12.5 mg Documented by: Clopidogrel Bisulfate (Plavix) 75 mg PO DAILY [facility] Last Admin: 11/23/19 09:27 Dose: 75 mg Documented by: Dextrose (D50w Syringe) 0 gm IV X1 PRN; Protocol PRN Reason: Hypoglycemia Furosemide (Lasix) 40 mg PO DAILY [facility] Last Admin: 11/23/19 09:28 Dose: 40 mg Documented by: Glucagon () 1 mg IM .X1 PRN PRN Reason: Hypoglycemia Heparin Sodium (Porcine) (Heparin Na) 0 unit IV UD PRN; Protocol PRN Reason: dose adjustment Last Admin: 11/18/19 03:07 Dose: 1,000 unit Documented by: Hydralazine HCl (Apresoline) 25 mg PO TID [facility] Last Admin: 11/23/19 06:43 Dose: 25 mg Documented by: Sodium Chloride () 250 mls @ 15 mls/hr IV .[id number] PRN PRN Reason: Saline Flush Last Infusion: 11/19/19 02:50 Dose: 0 mls/hr Documented by: Sodium Chloride () 250 mls @ 15 mls/hr IV .[id number] PRN PRN Reason: Additional IVPB Infusion Sodium Chloride () 1,000 mls @ 0 mls/hr IV .Q0M [place] Insulin Human Lispro (Humalog Kwikpen (Bkc)) 0 unit SC ACHS [facility]; Protocol Last Admin: 11/23/19 11:48 Dose: Not Given Documented by: Lactobacillus Acidophilus (Acidophilus) 1 tablet PO TID [facility] Last Admin: 11/23/19 06:44 Dose: 1 tablet Documented by: Ondansetron HCl (Zofran) 4 mg IV Q8H PRN PRN PRN Reason: NAUSEA/VOMITING Pantoprazole Sodium (Protonix) 40 mg PO DAILY [facility] Last Admin: 11/23/19 09:27 Dose: 40 mg Documented by: Saliva Substitute (Biotene) 15 ml MM 5X/DAY PRN PRN Reason: DRY MOUTH Last Admin: 11/20/19 14:23 Dose: 15 ml Documented by: Sodium Chloride () 10 - 40 ml IV UD PRN PRN Reason: SALINE FLUSH Last Admin: 11/21/19 21:07 Dose: 10 ml Documented by: Medical Necessity - Tobacco Use Smoking Status: Former smoker Assessment/Plan All Active Problems Weakness (Acute) Dysuria (Acute) CHIKA (acute kidney injury) (Acute) Heart failure (Acute) NSTEMI (non-ST elevated myocardial infarction) (Acute) Aspiration pneumonia (Acute) 1. NSTEMI-continue aspirin, statin, Plavix, carvedilol. Cardiology following. 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 Awaiting bed at [facility] for referral for coronary revascularization. 2. Acute hypoxic respiratory failure secondary to acute heart failure with reduced ejection fraction and aspiration pneumonia-continue supplement oxygen to maintain O2 at or above 90%. Oxygen currently stable on room air. Pulmonary medicine/cardiology following. 3. Acute heart failure with reduced ejection fraction-echocardiogram demonstrates an EF of 45%, stage I diastolic dysfunction, pulmonary artery systolic pressure 50 to 55 mmHg. BNP greater than [address] demonstrates bilateral upper lobe pneumonia greater on the left than the right. Small bilateral pleural effusions. IV Lasix discontinued, transitioned to oral Lasix 40 mg daily. Strict I&O. Daily weight. 4. Aspiration pneumonia, dysphagia-completed treatment with IV Zosyn. ID and pulmonary medicine following. Continue speech therapy eval. 5. Severe sepsis secondary to pneumonia and UTI-completed treatment with IV zosyn as noted above. 6. Acute kidney injury-improved. Nephrology following. Trend BMP. 7. Acute rhabdomyolysis-resolved. 8. Hypertension-continue carvedilol. Amlodipine discontinued. 9. Parkinson's disease- PT/OT. Continue carbidopa/levodopa. 10. Paroxysmal atrial fibrillation/nonsustained V. tach-history of ablation. AICD in place. Continue carvedilol. 11. Type 2 diabetes [id number]-[id number] with sliding scale insulin. 12. Hypernatremia-improving, trend BMP. DVT prophylaxis- SCDs Discharge planning: [facility] pending bed availability. This patient was seen by HUNTER Reyes under the supervision of Dr. Bullock. <Aleksandr Bullock - Last Filed: 11/23/19 13:41> - Physical Exam Vitals/I&O's: Vital Signs Temp Pulse Resp BP Pulse Ox 97.1 F L 73 16 133/58 H 99 11/23/19 09:24 11/23/19 09:24 11/23/19 09:24 11/23/19 09:24 11/23/19 09:24 Oxygen Flow Rate (L/min) 2 Oxygen Delivery Method Nasal Cannula Weight: 101.6 kg Body Mass Index (BMI) 44.6 Intake and Output for Last 24 Hours 11/21/19 11/22/19 11/23/19 23:59 23:59 23:59 Intake Total 700 / 700 903.33 / 903.33 120 / 120 Balance 700 / 700 903.33 / 903.33 120 / 120 Laboratory Results 11/22/19 16:11: POC Glucose 106 11/22/19 21:08: POC Glucose 95 10/10/20 05:52: WBC 8.8, RBC 4.04 L, Hgb 11.9 L, Hct 39.0 L, MCV 96.5 H, MCH 29.5, MCHC 30.5 L, RDW Std Deviation 48.4 H, RDW Coeff of Sammi 13.6, Plt Count 229, MPV 11.4 11/23/19 05:52: Sodium 141, Potassium 3.8, Chloride 109 H, Carbon Dioxide 27.0, Anion Gap 5, BUN 33 H, Creatinine 1.50 H, Estim Creat Clear Calc 32.36, Est GFR (MDRD) Af Amer 59 L, Est GFR (MDRD) Non-Af 48 L, BUN/Creatinine Ratio 22.0 H, Glucose 106, Calcium 8.7 11/23/19 06:40: POC Glucose 108 11/23/19 11:43: POC Glucose 112 H Current Medications Acetaminophen (Tylenol) 650 mg PO Q6H PRN PRN PRN Reason: Pain 1-10 or Fever Last Admin: 11/22/19 21:16 Dose: 650 mg Documented by: Albuterol Sulfate (Ventolin Aerosols) 2.5 mg INHALATION Q2H PRN PRN PRN Reason: sob/wheezing [facility] Last Admin: 11/23/19 09:27 Dose: 100 mg Documented by: Aspirin (Aspirin, Baby) 81 mg PO DAILY@0800 [facility] Last Admin: 11/23/19 09:27 Dose: 81 mg Documented by: Atorvastatin Calcium (Lipitor) 40 mg PO QHS [facility] Last Admin: 11/22/19 21:13 Dose: 40 mg Documented by: Brimonidine Tartrate (Brimonidine 0.2% 5ml Bottle) 1 drop EACH EYE BID [facility] Last Admin: 11/23/19 09:28 Dose: 1 drop Documented by: Carbidopa/Levodopa (Sinemet) 2 tablet PO TIDAC [facility] Last Admin: 11/23/19 11:47 Dose: 2 tablet Documented by: Carvedilol (Coreg) 12.5 mg PO BID [facility] Last Admin: 11/23/19 09:27 Dose: 12.5 mg Documented by: Clopidogrel Bisulfate (Plavix) 75 mg PO DAILY [facility] Last Admin: 10/10/20 09:27 Dose: 75 mg Documented by: Dextrose (D50w Syringe) 0 gm IV X1 PRN; Protocol PRN Reason: Hypoglycemia Furosemide (Lasix) 40 mg PO DAILY [facility] Last Admin: 11/23/19 09:28 Dose: 40 mg Documented by: Glucagon () 1 mg IM .X1 PRN PRN Reason: Hypoglycemia Heparin Sodium (Porcine) (Heparin Na) 0 unit IV UD PRN; Protocol PRN Reason: dose adjustment Last Admin: 11/18/19 03:07 Dose: 1,000 unit Documented by: Hydralazine HCl (Apresoline) 25 mg PO TID [facility] Last Admin: 11/23/19 06:43 Dose: 25 mg Documented by: Sodium Chloride () 250 mls @ 15 mls/hr IV .[id number] PRN PRN Reason: Saline Flush Last Infusion: 11/19/19 02:50 Dose: 0 mls/hr Documented by: Sodium Chloride () 250 mls @ 15 mls/hr IV .[id number] PRN PRN Reason: Additional IVPB Infusion Sodium Chloride () 1,000 mls @ 0 mls/hr IV .Q0M [place] Insulin Human Lispro (Humalog Kwikpen (Bkc)) 0 unit SC ACHS [facility]; Protocol Last Admin: 11/23/19 11:48 Dose: Not Given Documented by: Lactobacillus Acidophilus (Acidophilus) 1 tablet PO TID [facility] Last Admin: 11/23/19 06:44 Dose: 1 tablet Documented by: Ondansetron HCl (Zofran) 4 mg IV Q8H PRN PRN PRN Reason: NAUSEA/VOMITING Pantoprazole Sodium (Protonix) 40 mg PO DAILY [facility] Last Admin: 11/23/19 09:27 Dose: 40 mg Documented by: Saliva Substitute (Biotene) 15 ml MM 5X/DAY PRN PRN Reason: DRY MOUTH Last Admin: 11/20/19 14:23 Dose: 15 ml Documented by: Sodium Chloride () 10 - 40 ml IV UD PRN PRN Reason: SALINE FLUSH Last Admin: 11/21/19 21:07 Dose: 10 ml Documented by: Assessment/Plan This patient was seen in conjunction with HUNTER Reyes. I have independently interviewed and examined the patient and reviewed pertinent historical, laboratory, and other data. Please refer to Minoo Grady, DI[employer] CLE[employer]ER-C note for details of this patient's presentation, findings, and recommendations. I have reviewed DAX ReyesC note and concur with documented findings. In brief, patient 74-year-old gentleman with multiple comorbidities admitted with progressive shortness of breath. An assessment of acute hypoxic respiratory failure secondary to combination of CHF pneumonia made admitted for subsequent management. Patient was initially managed on noninvasive ventilation BiPAP however his condition deteriorated resulting in patient being intubated. Weaned off the vent on 11/14/2019. 11/19/2019: Patient seen for kidney function continues to worsen. Sodium levels up to 152 from 146. Patient Lasix held. Started on D5W with serial monitoring of electrolytes ordered 11/20/2019: Patient seen sodium level still remain elevated, however there is been slight improvement in kidney function. Plan is for patient to undergo left heart catheterization pending kidney function improvement 11/21/2019; patient seen much more awake compared to the previous day. His sodium levels are finally trending down plan is for patient to complete Zosyn therapy on 11/21/2019 11/22/2019; patient was kept n.p.o. with plans for patient to undergo left heart catheterization this morning. 11/23/2019. Patient left catheterization performed on 11/22/2019 demonstrated multivessel coronary artery disease. Arrangement has been made for patient to be transferred to [facility] for evaluation for CABG. Physical Examination: GENERAL: Frail looking HEENT: Atraumatic; EYES; Anicteric, NECK; supple, normal thyroid, RESPIRATORY: Diminished to auscultation CARDIOVASCULAR: Regular S1 S2, GI: soft, normoactive bowel sounds, : No Renal angle tenderness; EXTREMITIES: edema, no clubbing, NEURO: Awake; no lateralizing signs. PSYCH; Flat affect Assessment: 1. Acute hypoxic respiratory failure 2. Severe sepsis secondary to pneumonia with suspected multidrug organisms 3. Non-ST segment elevation SD 4. Acute kidney injury 5. Acute rhabdomyolysis 6. Acute congestive heart failure with reduced ejection fraction?45% 7. Pulmonary hypertension with pulmonary arterial systolic pressure of 50 to 55 mmHg 8. Parkinson's disease 9. Dysphagia 10. Non Sustained VT 11. Hypernatremia Recommendations: 1. I have discussed the results of my overview and impressions with the patient 2. Options for management were reviewed Inpatient E&M: [id number] Subs Hosp L2
--- NOTE | 2019-11-23 17:28 | PN.RENAL_ITS ---
Patient Problems: Active and Suspected Problems CHIKA (acute kidney injury) (Acute) Heart failure (Acute) NSTEMI (non-ST elevated myocardial infarction) (Acute) Aspiration pneumonia (Acute) Subjective: no new complaints - Physical Exam Vitals/I&O's: Vital Signs Temp Pulse Resp BP Pulse Ox 97.1 F L 67 16 122/61 H 99 11/23/19 15:10 11/23/19 15:12 11/23/19 15:10 11/23/19 15:10 11/23/19 15:10 Oxygen Flow Rate (L/min) 2 Oxygen Delivery Method Nasal Cannula Weight: 101.6 kg Body Mass Index (BMI) 44.6 Intake and Output for Last 24 Hours 11/21/19 11/22/19 11/23/19 23:59 23:59 23:59 Intake Total 700 / 700 903.33 / 903.33 120 / 120 Balance 700 / 700 903.33 / 903.33 120 / 120 General: Alert, Oriented x3, Cooperative HEENT: Atraumatic, PERRLA, EOMI, Normocephalic Neck: Supple, No JVD, Negative Carotid Bruits Lungs: Clear to auscultation, Normal air movement Cardiovascular: Regular rate, No murmurs Abdomen: Bowel Sounds Present, Soft, Non Tender Extremities: No edema, Capillary Refill Less than 3 Seconds Skin: No rashes, No breakdown Musculoskeletal: No Tenderness to Palpation of Joints or Extremities Neurological: Cranial nerves II-XII grossly intact Psych/Mental Status: Normal Affect, Appropriate Laboratory Results 11/22/19 21:08: POC Glucose 95 11/23/19 05:52: WBC 8.8, RBC 4.04 L, Hgb 11.9 L, Hct 39.0 L, MCV 96.5 H, MCH 29.5, MCHC 30.5 L, RDW Std Deviation 48.4 H, RDW Coeff of Sammi 13.6, Plt Count 229, MPV 11.4 11/23/19 05:52: Sodium 141, Potassium 3.8, Chloride 109 H, Carbon Dioxide 27.0, Anion Gap 5, BUN 33 H, Creatinine 1.50 H, Estim Creat Clear Calc 32.36, Est GFR (MDRD) Af Amer 59 L, Est GFR (MDRD) Non-Af 48 L, BUN/Creatinine Ratio 22.0 H, Glucose 106, Calcium 8.7 11/23/19 06:40: POC Glucose 108 11/23/19 11:43: POC Glucose 112 H Current Medications Acetaminophen (Tylenol) 650 mg PO Q6H PRN PRN PRN Reason: Pain 1-10 or Fever Last Admin: 11/22/19 21:16 Dose: 650 mg Documented by: Albuterol Sulfate (Ventolin Aerosols) 2.5 mg INHALATION Q2H PRN PRN PRN Reason: sob/wheezing Allopurinol (Zyloprim) 100 mg PO DAILYCM [facility] Last Admin: 11/23/19 09:27 Dose: 100 mg Documented by: Aspirin (Aspirin, Baby) 81 mg PO DAILY@0800 [facility] Last Admin: 11/23/19 09:27 Dose: 81 mg Documented by: Atorvastatin Calcium (Lipitor) 40 mg PO QHS [facility] Last Admin: 11/22/19 21:13 Dose: 40 mg Documented by: Brimonidine Tartrate (Brimonidine 0.2% 5ml Bottle) 1 drop EACH EYE BID [facility] Last Admin: 11/23/19 09:28 Dose: 1 drop Documented by: Carbidopa/Levodopa (Sinemet) 2 tablet PO TIDAC [facility] Last Admin: 11/23/19 17:23 Dose: 2 tablet Documented by: Carvedilol (Coreg) 12.5 mg PO BID [facility] Last Admin: 11/23/19 09:27 Dose: 12.5 mg Documented by: Clopidogrel Bisulfate (Plavix) 75 mg PO DAILY [facility] Last Admin: 11/23/19 09:27 Dose: 75 mg Documented by: Dextrose (D50w Syringe) 0 gm IV X1 PRN; Protocol PRN Reason: Hypoglycemia Furosemide (Lasix) 40 mg PO DAILY [facility] Last Admin: 11/23/19 09:28 Dose: 40 mg Documented by: Glucagon () 1 mg IM .X1 PRN PRN Reason: Hypoglycemia Heparin Sodium (Porcine) (Heparin Na) 0 unit IV UD PRN; Protocol PRN Reason: dose adjustment Last Admin: 11/18/19 03:07 Dose: 1,000 unit Documented by: Hydralazine HCl (Apresoline) 25 mg PO TID [facility] Last Admin: 11/23/19 15:12 Dose: 25 mg Documented by: Sodium Chloride () 250 mls @ 15 mls/hr IV .[id number] PRN PRN Reason: Saline Flush Last Infusion: 11/19/19 02:50 Dose: 0 mls/hr Documented by: Sodium Chloride () 250 mls @ 15 mls/hr IV .[id number] PRN PRN Reason: Additional IVPB Infusion Sodium Chloride () 1,000 mls @ 0 mls/hr IV .Q0M [place] Insulin Human Lispro (Humalog Kwikpen (Bkc)) 0 unit SC ACHS [facility]; Protocol Last Admin: 11/23/19 17:22 Dose: Not Given Documented by: Lactobacillus Acidophilus (Acidophilus) 1 tablet PO TID [facility] Last Admin: 11/23/19 15:13 Dose: 1 tablet Documented by: Ondansetron HCl (Zofran) 4 mg IV Q8H PRN PRN PRN Reason: NAUSEA/VOMITING Pantoprazole Sodium (Protonix) 40 mg PO DAILY [facility] Last Admin: 11/23/19 09:27 Dose: 40 mg Documented by: Saliva Substitute (Biotene) 15 ml MM 5X/DAY PRN PRN Reason: DRY MOUTH Last Admin: 11/20/19 14:23 Dose: 15 ml Documented by: Sodium Chloride () 10 - 40 ml IV UD PRN PRN Reason: SALINE FLUSH Last Admin: 11/21/19 21:07 Dose: 10 ml Documented by: Medical Necessity - Tobacco Use Smoking Status: Former smoker Assessment/Plan All Active Problems Weakness (Acute) Dysuria (Acute) CHIKA (acute kidney injury) (Acute) Heart failure (Acute) NSTEMI (non-ST elevated myocardial infarction) (Acute) Aspiration pneumonia (Acute) 1. 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 Baseline SCr had been around 1.9 mg/dL. CKD is likely due to diabetic nephropathy. CHIKA is likely due to prerenal CHIKA -> ischemic ATN from sepsis and heart failure (cardiorenal syndrome). renal US reviewed cr is down to 1.6. stable waiting for bed at [facility] for possible CABG 2. Severe sepsis. Due to UTI and pneumonia. Clinically improved. Hemodynamically stable. ID note reviewed. likely aspiration events. on modified diet now 3. Acute hypoxic respiratory failure. Off oxygen today 4. Hypernatremia. better.
[2019-11-23 17:31] LABS: Bedside Glucose 87 mg/dL (70-110)
[2019-11-23] MEDS: Atorvastatin Calcium 40 MG Tablet PO (21:06)
[2019-11-23 21:51] LABS: Bedside Glucose 125 mg/dL (70-110)
[2019-11-24] VITALS (13 sets, daily range): BP systolic 121–152; BP diastolic 64–76; PULSE 68–80; RESP 16–18; TEMP 36.4–37.2; O2SAT 97–100
--- NOTE | 2019-11-24 04:16 | CPS ---
[employer] SALESP[employer] pulled BiPAP from room because patient hasn't worn it since Monday. On discuss with patient he said that he has been doing fine with just O2 at night and doesn't feel like he needs or wants to wear hospital's BiPAP. For these reasons, machine was pulled and cleaned.
[2019-11-24 05:23] LABS: Hematocrit 39.8 % (40-54); Hemoglobin 12.3 g/dL (13.0-16.5); Mean Corp Hgb Conc 30.9 g/dL (32-36); Mean Corpuscular Hgb 29.6 pg (27.0-32.0); Mean Corpuscular Volume 95.9 fL (80-94); Mean Platelet Vol. 10.8 fl (6.2-12.0); Platelet Count 216 K/mm3 (150-450); RBC Distribution Width CV 13.7 % (11.6-14.6); Red Blood Count 4.15 M/mm3 (4.6-6.2); White Blood Count 9.4 K/mm3 (4.4-11.0)
[2019-11-24 05:46] LABS: Anion Gap 5 (5-15); BUN 29 mg/dL (7-18); BUN/Creat Ratio 19.2 RATIO (10-20); Chloride 108 mmol/L (98-107); Creatinine, Serum 1.51 mg/dL (0.70-1.30); EST Glomerular Filtration Rate 48 mL/min (>60); Est Glom Filt Rate - Afr Amer 58 mL/min (>60); Estimated Creatinine Clearance 32.14 ml/min; Glucose 129 mg/dL (74-106); Potassium 3.3 mmol/L (3.5-5.1); Sodium Level 140 mmol/L (136-145)
[2019-11-24] MEDS: hydrALAZINE 25 MG Tablet PO ×3 (06:30→21:23)
[2019-11-24] MEDS: Carbidopa/Levodopa 25/100 Tablet PO ×3 (06:31→16:44)
[2019-11-24 06:50] LABS: Bedside Glucose 114 mg/dL (70-110)
[2019-11-24] MEDS: Pantoprazole Sodium 40 MG Tablet PO (09:22)
[2019-11-24] MEDS: Aspirin 81 MG TAB.CHEW PO (09:22)
[2019-11-24] MEDS: Furosemide 40 MG Tablet PO (09:22)
[2019-11-24] MEDS: Clopidogrel Bisulfate 75 MG Tablet PO (09:22)
[2019-11-24] MEDS: Carvedilol 12.5 MG Tablet PO ×2 (09:23→21:23)
[2019-11-24] MEDS: Allopurinol 100 MG Tablet PO (09:24)
[2019-11-24] MEDS: BRIMONIDINE 0.2% 5ML BOTTLE 1 DRP EACH EYE ×2 (09:24→21:22)
--- NOTE | 2019-11-24 09:31 | PCM.PROGNOTE ---
<Minoo Rasmussen [employer]ER - Last Filed: 11/24/19 09:36> Patient Problems: Active and Suspected Problems CHIKA (acute kidney injury) (Acute) Heart failure (Acute) NSTEMI (non-ST elevated myocardial infarction) (Acute) Aspiration pneumonia (Acute) Subjective: Patient seen and examined. No acute events overnight. Denies chest pain. Awaiting bed at [facility]. - Physical Exam Vitals/I&O's: Vital Signs Temp Pulse Resp BP Pulse Ox 97.6 F L 73 18 121/76 H 97 11/24/19 09:19 11/24/19 09:19 11/24/19 09:19 11/24/19 09:19 11/24/19 09:19 Oxygen Flow Rate (L/min) 2 Oxygen Delivery Method Room Air Weight: 224 lb 13.944 oz Body Mass Index (BMI) 44.6 Intake and Output for Last 24 Hours 11/22/19 11/23/19 11/24/19 23:59 23:59 23:59 Intake Total 903.33 / 903.33 220 / 220 50 / 50 Balance 903.33 / 903.33 220 / 220 50 / 50 General: Alert, Oriented x3, Cooperative HEENT: Atraumatic, PERRLA, EOMI, Normocephalic Neck: Supple, No JVD, Negative Carotid Bruits Lungs: Clear to auscultation, Normal air movement Cardiovascular: Regular rate, No murmurs Abdomen: Bowel Sounds Present, Soft, Non Tender Extremities: No clubbing, No cyanosis, No edema, Capillary Refill Less than 3 Seconds Skin: No rashes, No breakdown Musculoskeletal: No Tenderness to Palpation of Joints or Extremities Neurological: Cranial nerves II-XII grossly intact, Neuro grossly intact Psych/Mental Status: Normal Affect, Appropriate Laboratory Results 11/23/19 11:43: POC Glucose 112 H 11/23/19 17:21: POC Glucose 87 11/23/19 21:02: POC Glucose 125 H 11/24/19 05:10: WBC 9.4, RBC 4.15 L, Hgb 12.3 L, Hct 39.8 L, MCV 95.9 H, MCH 29.6, MCHC 30.9 L, RDW Std Deviation 48.0 H, RDW Coeff of Sammi 13.7, Plt Count 216, MPV 10.8 11/24/19 05:10: Sodium 140, Potassium 3.3 L, Chloride 108 H, Carbon Dioxide 27.0, Anion Gap 5, BUN 29 H, Creatinine 1.51 H, Estim Creat Clear Calc 32.14, Est GFR (MDRD) Af Amer 58 L, Est GFR (MDRD) Non-Af 48 L, BUN/Creatinine Ratio 19.2, Glucose 129 H, Calcium 9.0 11/24/19 06:28: POC Glucose 114 H Current Medications Acetaminophen (Tylenol) 650 mg PO Q6H PRN PRN PRN Reason: Pain 1-10 or Fever Last Admin: 11/22/19 21:16 Dose: 650 mg Documented by: Albuterol Sulfate (Ventolin Aerosols) 2.5 mg INHALATION Q2H PRN PRN PRN Reason: sob/wheezing [facility] Admin: 11/24/19 09:24 Dose: 100 mg Documented by: Aspirin (Aspirin, Baby) 81 mg PO DAILY@0800 [facility] Last Admin: 11/24/19 09:22 Dose: 81 mg Documented by: Atorvastatin Calcium (Lipitor) 40 mg PO QHS [facility] Last Admin: 11/23/19 21:06 Dose: 40 mg Documented by: Brimonidine Tartrate (Brimonidine 0.2% 5ml Bottle) 1 drop EACH EYE BID [facility] Last Admin: 11/24/19 09:24 Dose: 1 drop Documented by: Carbidopa/Levodopa (Sinemet) 2 tablet PO TIDAC [facility] Last Admin: 11/24/19 06:31 Dose: 2 tablet Documented by: Carvedilol (Coreg) 12.5 mg PO BID [facility] Last Admin: 11/24/19 09:23 Dose: 12.5 mg Documented by: Clopidogrel Bisulfate (Plavix) 75 mg PO DAILY [facility] Last Admin: 11/24/19 09:22 Dose: 75 mg Documented by: Dextrose (D50w Syringe) 0 gm IV X1 PRN; Protocol PRN Reason: Hypoglycemia Furosemide (Lasix) 40 mg PO DAILY [facility] Last Admin: 11/24/19 09:22 Dose: 40 mg Documented by: Glucagon () 1 mg IM .X1 PRN PRN Reason: Hypoglycemia Heparin Sodium (Porcine) (Heparin Na) 0 unit IV UD PRN; Protocol PRN Reason: dose adjustment Last Admin: 11/18/19 03:07 Dose: 1,000 unit Documented by: Hydralazine HCl (Apresoline) 25 mg PO TID [facility] Last Admin: 11/24/19 06:30 Dose: 25 mg Documented by: Sodium Chloride () 250 mls @ 15 mls/hr IV .[id number] PRN PRN Reason: Saline Flush Last Infusion: 11/19/19 02:50 Dose: 0 mls/hr Documented by: Sodium Chloride () 250 mls @ 15 mls/hr IV .[id number] PRN PRN Reason: Additional IVPB Infusion Sodium Chloride () 1,000 mls @ 0 mls/hr IV .Q0M [place] Insulin Human Lispro (Humalog Kwikpen (Bkc)) 0 unit SC ACHS [facility]; Protocol Last Admin: 11/24/19 06:30 Dose: Not Given Documented by: Lactobacillus Acidophilus (Acidophilus) 1 tablet PO TID [facility] Last Admin: 11/24/19 06:30 Dose: 1 tablet Documented by: Ondansetron HCl (Zofran) 4 mg IV Q8H PRN PRN PRN Reason: NAUSEA/VOMITING Pantoprazole Sodium (Protonix) 40 mg PO DAILY [facility] Last Admin: 11/24/19 09:22 Dose: 40 mg Documented by: Potassium Chloride (K-Dur) 20 meq PO BIDCM [facility] Last Admin: 11/24/19 09:31 Dose: 20 meq Documented by: Saliva Substitute (Biotene) 15 ml MM 5X/DAY PRN PRN Reason: DRY MOUTH Last Admin: 11/20/19 14:23 Dose: 15 ml Documented by: Sodium Chloride () 10 - 40 ml IV UD PRN PRN Reason: SALINE FLUSH Last Admin: 11/21/19 21:07 Dose: 10 ml Documented by: Medical Necessity - Tobacco Use Smoking Status: Former smoker Assessment/Plan All Active Problems Weakness (Acute) Dysuria (Acute) CHIKA (acute kidney injury) (Acute) Heart failure (Acute) NSTEMI (non-ST elevated myocardial infarction) (Acute) Aspiration pneumonia (Acute) 1. NSTEMI-continue aspirin, statin, Plavix, carvedilol. Cardiology following. 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 Awaiting bed at [facility] for referral for coronary revascularization. 2. Acute hypoxic respiratory failure secondary to acute heart failure with reduced ejection fraction and aspiration pneumonia-continue supplement oxygen to maintain O2 at or above 90%. Oxygen currently stable on room air. Pulmonary medicine/cardiology following. 3. Acute heart failure with reduced ejection fraction-echocardiogram demonstrates an EF of 45%, stage I diastolic dysfunction, pulmonary artery systolic pressure 50 to 55 mmHg. BNP greater than [address] demonstrates bilateral upper lobe pneumonia greater on the left than the right. Small bilateral pleural effusions. IV Lasix discontinued, transitioned to oral Lasix 40 mg daily. Strict I&O. Daily weight. 4. Aspiration pneumonia, dysphagia-completed treatment with IV Zosyn. ID and pulmonary medicine following. Continue speech therapy eval. 5. Severe sepsis secondary to pneumonia and UTI-completed treatment with IV zosyn as noted above. 6. Acute kidney injury-improved. Nephrology following. Trend BMP. 7. Acute rhabdomyolysis-resolved. 8. Hypertension-continue carvedilol. Amlodipine discontinued. 9. Parkinson's disease- PT/OT. Continue carbidopa/levodopa. 10. Paroxysmal atrial fibrillation/nonsustained V. tach-history of ablation. AICD in place. Continue carvedilol. 11. Type 2 diabetes [id number] with sliding scale insulin. 12. Hypernatremia-improving, trend BMP. DVT prophylaxis- SCDs Discharge planning: [facility] pending bed availability. This patient was seen by HUNTER Reyes under the supervision of Dr. Bullock. <Aleksandr Bullock - Last Filed: 11/24/19 10:06> - Physical Exam Vitals/I&O's: Vital Signs Temp Pulse Resp BP Pulse Ox 97.6 F L 73 18 121/76 H 97 11/24/19 09:19 11/24/19 09:19 11/24/19 09:19 11/24/19 09:19 11/24/19 09:19 Oxygen Flow Rate (L/min) 2 Oxygen Delivery Method Room Air Weight: 102 kg Body Mass Index (BMI) 44.6 Intake and Output for Last 24 Hours 11/22/19 11/23/19 11/24/19 23:59 23:59 23:59 Intake Total 903.33 / 903.33 220 / 220 50 / 50 Balance 903.33 / 903.33 220 / 220 50 / 50 Laboratory Results 11/23/19 11:43: POC Glucose 112 H 11/23/19 17:21: POC Glucose 87 11/23/19 21:02: POC Glucose 125 H 11/24/19 05:10: WBC 9.4, RBC 4.15 L, Hgb 12.3 L, Hct 39.8 L, MCV 95.9 H, MCH 29.6, MCHC 30.9 L, RDW Std Deviation 48.0 H, RDW Coeff of Sammi 13.7, Plt Count 216, MPV 10.8 11/24/19 05:10: Sodium 140, Potassium 3.3 L, Chloride 108 H, Carbon Dioxide 27.0, Anion Gap 5, BUN 29 H, Creatinine 1.51 H, Estim Creat Clear Calc 32.14, Est GFR (MDRD) Af Amer 58 L, Est GFR (MDRD) Non-Af 48 L, BUN/Creatinine Ratio 19.2, Glucose 129 H, Calcium 9.0 11/24/19 06:28: POC Glucose 114 H Current Medications Acetaminophen (Tylenol) 650 mg PO Q6H PRN PRN PRN Reason: Pain 1-10 or Fever Last Admin: 11/22/19 21:16 Dose: 650 mg Documented by: Albuterol Sulfate (Ventolin Aerosols) 2.5 mg INHALATION Q2H PRN PRN PRN Reason: sob/wheezing [facility] Admin: 11/24/19 09:24 Dose: 100 mg Documented by: Aspirin (Aspirin, Baby) 81 mg PO DAILY@0800 [facility] Last Admin: 11/24/19 09:22 Dose: 81 mg Documented by: Atorvastatin Calcium (Lipitor) 40 mg PO QHS [facility] Last Admin: 11/23/19 21:06 Dose: 40 mg Documented by: Brimonidine Tartrate (Brimonidine 0.2% 5ml Bottle) 1 drop EACH EYE BID [facility] Last Admin: 11/24/19 09:24 Dose: 1 drop Documented by: Carbidopa/Levodopa (Sinemet) 2 tablet PO TIDAC [facility] Last Admin: 11/24/19 06:31 Dose: 2 tablet Documented by: Carvedilol (Coreg) 12.5 mg PO BID [facility] Last Admin: 11/24/19 09:23 Dose: 12.5 mg Documented by: Clopidogrel Bisulfate (Plavix) 75 mg PO DAILY [facility] Last Admin: 11/24/19 09:22 Dose: 75 mg Documented by: Dextrose (D50w Syringe) 0 gm IV X1 PRN; Protocol PRN Reason: Hypoglycemia Furosemide (Lasix) 40 mg PO DAILY [facility] Last Admin: 11/24/19 09:22 Dose: 40 mg Documented by: Glucagon () 1 mg IM .X1 PRN PRN Reason: Hypoglycemia Heparin Sodium (Porcine) (Heparin Na) 0 unit IV UD PRN; Protocol PRN Reason: dose adjustment Last Admin: 11/18/19 03:07 Dose: 1,000 unit Documented by: Hydralazine HCl (Apresoline) 25 mg PO TID [facility] Last Admin: 11/24/19 06:30 Dose: 25 mg Documented by: Sodium Chloride () 250 mls @ 15 mls/hr IV .[id number] PRN PRN Reason: Saline Flush Last Infusion: 11/19/19 02:50 Dose: 0 mls/hr Documented by: Sodium Chloride () 250 mls @ 15 mls/hr IV .[id number] PRN PRN Reason: Additional IVPB Infusion Sodium Chloride () 1,000 mls @ 0 mls/hr IV .Q0M [place] Insulin Human Lispro (Humalog Kwikpen (Bkc)) 0 unit SC ACHS [facility]; Protocol Last Admin: 11/24/19 06:30 Dose: Not Given Documented by: Lactobacillus Acidophilus (Acidophilus) 1 tablet PO TID [facility] Last Admin: 11/24/19 06:30 Dose: 1 tablet Documented by: Ondansetron HCl (Zofran) 4 mg IV Q8H PRN PRN PRN Reason: NAUSEA/VOMITING Pantoprazole Sodium (Protonix) 40 mg PO DAILY [facility] Last Admin: 11/24/19 09:22 Dose: 40 mg Documented by: Potassium Chloride (K-Dur) 20 meq PO BIDCM [facility] Last Admin: 11/24/19 09:31 Dose: 20 meq Documented by: Saliva Substitute (Biotene) 15 ml MM 5X/DAY PRN PRN Reason: DRY MOUTH Last Admin: 11/20/19 14:23 Dose: 15 ml Documented by: Sodium Chloride () 10 - 40 ml IV UD PRN PRN Reason: SALINE FLUSH Last Admin: 11/21/19 21:07 Dose: 10 ml Documented by: Assessment/Plan This patient was seen in conjunction with HUNTER Reyes. I have independently interviewed and examined the patient and reviewed pertinent historical, laboratory, and other data. Please refer to HUNTER Reyes note for details of this patient's presentation, findings, and recommendations. I have reviewed HUNTER Reyes note and concur with documented findings. In brief, patient 74-year-old gentleman with multiple comorbidities admitted with progressive shortness of breath. An assessment of acute hypoxic respiratory failure secondary to combination of CHF pneumonia made admitted for subsequent management. Patient was initially managed on noninvasive ventilation BiPAP however his condition deteriorated resulting in patient being intubated. Weaned off the vent on 11/14/2019. 11/19/2019: Patient seen for kidney function continues to worsen. Sodium levels up to 152 from 146. Patient Lasix held. Started on D5W with serial monitoring of electrolytes ordered 11/20/2019: Patient seen sodium level still remain elevated, however there is been slight improvement in kidney function. Plan is for patient to undergo left heart catheterization pending kidney function improvement 11/21/2019; patient seen much more awake compared to the previous day. His sodium levels are finally trending down plan is for patient to complete Zosyn therapy on 11/21/2019 11/22/2019; patient was kept n.p.o. with plans for patient to undergo left heart catheterization this morning. 11/23/2019. Patient left catheterization performed on 11/22/2019 demonstrated multivessel coronary artery disease. Arrangement has been made for patient to be transferred to [facility] for evaluation for CABG. 11/24/2019. Patient seen. Denies any chest pain no shortness of breath. Overall clinical condition continues to improve. Plan is for patient to be transferred to [facility] possibly on 11/25/2019 for intervention of his multivessel disease. Physical Examination: GENERAL: Frail looking HEENT: Atraumatic; EYES; Anicteric, NECK; supple, normal thyroid, RESPIRATORY: Diminished to auscultation CARDIOVASCULAR: Regular S1 S2, GI: soft, normoactive bowel sounds, : No Renal angle tenderness; EXTREMITIES: edema, no clubbing, NEURO: Awake; no lateralizing signs. PSYCH; Flat affect Assessment: 1. Acute hypoxic respiratory failure 2. Severe sepsis secondary to pneumonia with suspected multidrug organisms 3. Non-ST segment elevation MD with multivessel coronary artery disease 4. Acute kidney injury 5. Acute rhabdomyolysis 6. Acute congestive heart failure with reduced ejection fraction?45% 7. Pulmonary hypertension with pulmonary arterial systolic pressure of 50 to 55 mmHg 8. Parkinson's disease 9. Dysphagia 10. Non Sustained VT 11. Hypernatremia Recommendations: 1. I have discussed the results of my overview and impressions with the patient 2. Options for management were reviewed Inpatient E&M: [id number] Subs Hosp L2
--- NOTE | 2019-11-24 09:33 | PN.RENAL_ITS ---
Patient Problems: Active and Suspected Problems CHIKA (acute kidney injury) (Acute) Heart failure (Acute) NSTEMI (non-ST elevated myocardial infarction) (Acute) Aspiration pneumonia (Acute) Subjective: no new events - Physical Exam Vitals/I&O's: Vital Signs Temp Pulse Resp BP Pulse Ox 97.6 F L 73 18 121/76 H 97 11/24/19 09:19 11/24/19 09:19 11/24/19 09:19 11/24/19 09:19 11/24/19 09:19 Oxygen Flow Rate (L/min) 2 Oxygen Delivery Method Room Air Weight: 102 kg Body Mass Index (BMI) 44.6 Intake and Output for Last 24 Hours 11/22/19 11/23/19 11/24/19 23:59 23:59 23:59 Intake Total 903.33 / 903.33 220 / 220 50 / 50 Balance 903.33 / 903.33 220 / 220 50 / 50 General: Alert, Oriented x3, Cooperative HEENT: Atraumatic, PERRLA, EOMI, Normocephalic Neck: Supple, No JVD, Negative Carotid Bruits Lungs: Clear to auscultation, Normal air movement Cardiovascular: Regular rate, No murmurs Abdomen: Bowel Sounds Present, Soft, Non Tender Extremities: No edema, Capillary Refill Less than 3 Seconds Skin: No rashes, No breakdown Musculoskeletal: No Tenderness to Palpation of Joints or Extremities Neurological: Cranial nerves II-XII grossly intact Psych/Mental Status: Normal Affect, Appropriate Laboratory Results 11/23/19 11:43: POC Glucose 112 H 11/23/19 17:21: POC Glucose 87 11/23/19 21:02: POC Glucose 125 H 11/24/19 05:10: WBC 9.4, RBC 4.15 L, Hgb 12.3 L, Hct 39.8 L, MCV 95.9 H, MCH 29.6, MCHC 30.9 L, RDW Std Deviation 48.0 H, RDW Coeff of Sammi 13.7, Plt Count 216, MPV 10.8 11/24/19 05:10: Sodium 140, Potassium 3.3 L, Chloride 108 H, Carbon Dioxide 27.0, Anion Gap 5, BUN 29 H, Creatinine 1.51 H, Estim Creat Clear Calc 32.14, Est GFR (MDRD) Af Amer 58 L, Est GFR (MDRD) Non-Af 48 L, BUN/Creatinine Ratio 19.2, Glucose 129 H, Calcium 9.0 11/24/19 06:28: POC Glucose 114 H Current Medications Acetaminophen (Tylenol) 650 mg PO Q6H PRN PRN PRN Reason: Pain 1-10 or Fever Last Admin: 11/22/19 21:16 Dose: 650 mg Documented by: Albuterol Sulfate (Ventolin Aerosols) 2.5 mg INHALATION Q2H PRN PRN PRN Reason: sob/wheezing Allopurinol (Zyloprim) 100 mg PO DAILYCM [facility] Last Admin: 11/24/19 09:24 Dose: 100 mg Documented by: Aspirin (Aspirin, Baby) 81 mg PO DAILY@0800 [facility] Last Admin: 11/24/19 09:22 Dose: 81 mg Documented by: Atorvastatin Calcium (Lipitor) 40 mg PO QHS [facility] Last Admin: 11/23/19 21:06 Dose: 40 mg Documented by: Brimonidine Tartrate (Brimonidine 0.2% 5ml Bottle) 1 drop EACH EYE BID [facility] Last Admin: 11/24/19 09:24 Dose: 1 drop Documented by: Carbidopa/Levodopa (Sinemet) 2 tablet PO TIDAC [facility] Last Admin: 11/24/19 06:31 Dose: 2 tablet Documented by: Carvedilol (Coreg) 12.5 mg PO BID [facility] Last Admin: 11/24/19 09:23 Dose: 12.5 mg Documented by: Clopidogrel Bisulfate (Plavix) 75 mg PO DAILY [facility] Last Admin: 11/24/19 09:22 Dose: 75 mg Documented by: Dextrose (D50w Syringe) 0 gm IV X1 PRN; Protocol PRN Reason: Hypoglycemia Furosemide (Lasix) 40 mg PO DAILY [facility] Last Admin: 11/24/19 09:22 Dose: 40 mg Documented by: Glucagon () 1 mg IM .X1 PRN PRN Reason: Hypoglycemia Heparin Sodium (Porcine) (Heparin Na) 0 unit IV UD PRN; Protocol PRN Reason: dose adjustment Last Admin: 11/18/19 03:07 Dose: 1,000 unit Documented by: Hydralazine HCl (Apresoline) 25 mg PO TID [facility] Last Admin: 11/24/19 06:30 Dose: 25 mg Documented by: Sodium Chloride () 250 mls @ 15 mls/hr IV .[id number] PRN PRN Reason: Saline Flush Last Infusion: 11/19/19 02:50 Dose: 0 mls/hr Documented by: Sodium Chloride () 250 mls @ 15 mls/hr IV .[id number] PRN PRN Reason: Additional IVPB Infusion Sodium Chloride () 1,000 mls @ 0 mls/hr IV .Q0M [place] Insulin Human Lispro (Humalog Kwikpen (Bkc)) 0 unit SC ACHS [facility]; Protocol Last Admin: 11/24/19 06:30 Dose: Not Given Documented by: Lactobacillus Acidophilus (Acidophilus) 1 tablet PO TID [facility] Last Admin: 11/24/19 06:30 Dose: 1 tablet Documented by: Ondansetron HCl (Zofran) 4 mg IV Q8H PRN PRN PRN Reason: NAUSEA/VOMITING Pantoprazole Sodium (Protonix) 40 mg PO DAILY [facility] Last Admin: 11/24/19 09:22 Dose: 40 mg Documented by: Potassium Chloride (K-Dur) 20 meq PO BIDCM [facility] Last Admin: 11/24/19 09:31 Dose: 20 meq Documented by: Saliva Substitute (Biotene) 15 ml MM 5X/DAY PRN PRN Reason: DRY MOUTH Last Admin: 11/20/19 14:23 Dose: 15 ml Documented by: Sodium Chloride () 10 - 40 ml IV UD PRN PRN Reason: SALINE FLUSH Last Admin: 11/21/19 21:07 Dose: 10 ml Documented by: Medical Necessity - Tobacco Use Smoking Status: Former smoker Assessment/Plan All Active Problems Weakness (Acute) Dysuria (Acute) CHIKA (acute kidney injury) (Acute) Heart failure (Acute) NSTEMI (non-ST elevated myocardial infarction) (Acute) Aspiration pneumonia (Acute) 1. 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 Baseline SCr had been around 1.9 mg/dL. CKD is likely due to diabetic nephropathy. CHIKA is likely due to prerenal CHIKA -> ischemic ATN from sepsis and heart failure (cardiorenal syndrome). renal US reviewed cr is down to 1.5. stable waiting for bed at [facility] for possible CABG 2. Severe sepsis. Due to UTI and pneumonia. Clinically improved. Hemodynamically stable. ID note reviewed. likely aspiration events. on modified diet now 3. Acute hypoxic respiratory failure. Off oxygen today 4. Hypernatremia. better.
[2019-11-24 16:41] LABS: Bedside Glucose 102 mg/dL (70-110)
[2019-11-24 16:55] LABS: Bedside Glucose 129 mg/dL (70-110)
[2019-11-24] MEDS: Atorvastatin Calcium 40 MG Tablet PO (21:23)
[2019-11-24 21:40] LABS: Bedside Glucose 109 mg/dL (70-110)
[2019-11-25] VITALS (8 sets, daily range): BP systolic 118–128; BP diastolic 59–75; PULSE 71–79; RESP 18; TEMP 36.6–36.9; O2SAT 96–98
[2019-11-25 06:18] LABS: Hematocrit 40.9 % (40-54); Hemoglobin 12.6 g/dL (13.0-16.5); Mean Corp Hgb Conc 30.8 g/dL (32-36); Mean Corpuscular Hgb 29.9 pg (27.0-32.0); Mean Corpuscular Volume 97.1 fL (80-94); Mean Platelet Vol. 11.3 fl (6.2-12.0); Platelet Count 249 K/mm3 (150-450); RBC Distribution Width CV 13.8 % (11.6-14.6); RBC Distribution Width SD 49.2 fl (35.1-43.9); Red Blood Count 4.21 M/mm3 (4.6-6.2)
[2019-11-25 06:47] LABS: Anion Gap 6 (5-15); BUN 29 mg/dL (7-18); BUN/Creat Ratio 19.1 RATIO (10-20); Chloride 109 mmol/L (98-107); Creatinine, Serum 1.52 mg/dL (0.70-1.30); EST Glomerular Filtration Rate 48 mL/min (>60); Est Glom Filt Rate - Afr Amer 58 mL/min (>60); Estimated Creatinine Clearance 31.93 ml/min; Glucose 105 mg/dL (74-106); Potassium 3.9 mmol/L (3.5-5.1); Sodium Level 142 mmol/L (136-145)
[2019-11-25] MEDS: hydrALAZINE 25 MG Tablet PO (06:52)
[2019-11-25] MEDS: Carbidopa/Levodopa 25/100 Tablet PO (06:52)
[2019-11-25 07:01] LABS: Bedside Glucose 99 mg/dL (70-110)
[2019-11-25] MEDS: Aspirin 81 MG TAB.CHEW PO (08:15)
[2019-11-25] MEDS: Furosemide 40 MG Tablet PO (08:15)
[2019-11-25] MEDS: BRIMONIDINE 0.2% 5ML BOTTLE 1 DRP EACH EYE (08:15)
[2019-11-25] MEDS: Allopurinol 100 MG Tablet PO (08:15)
[2019-11-25] MEDS: Clopidogrel Bisulfate 75 MG Tablet PO (08:15)
[2019-11-25] MEDS: Carvedilol 12.5 MG Tablet PO (08:15)
[2019-11-25] MEDS: Pantoprazole Sodium 40 MG Tablet PO (08:15)
[2019-11-25] MEDS: 0.9% Saline Lock 10 ML Syringe IV (08:16)
--- NOTE | 2019-11-25 10:56 | PCM.DC.SUM ---
<Minoo Rasmussen DIRECTOR [employer] - Last Filed: 11/25/19 11:09> Discharge Date and Diagnosis Date of Admission: 11/14/19 Date of Discharge: 11/25/19 - Primary Discharge Diagnosis Acute Problems: 1. NSTEMI- multivessel CAD. referral for coronary revascularization. 2. Acute hypoxic respiratory failure secondary to acute heart failure with reduced ejection fraction and aspiration pneumonia 3. Acute heart failure with reduced ejection fraction 4. Aspiration pneumonia, dysphagia 5. Severe sepsis secondary to pneumonia and UTI 6. Acute kidney injury 7. Acute rhabdomyolysis 8. Hypertension 9. Parkinson's disease 10. Paroxysmal atrial fibrillation/nonsustained V. tach 11. Type 2 diabetes mellitus 12. Hypernatremia - Secondary Discharge Diagnosis Chronic Problems: Chronic Problems CKD (chronic kidney disease) (Chronic) Parkinson disease (Chronic) Diabetes (Chronic) Hospital Course and Treatment Imaging Results: Diagnostic Data Renal Ultrasound 11/17/19 07:36 IMPRESSION: No definite acute abnormalities. Bilateral renal cysts. Possible nonobstructing stone of the left kidney. Electronically Signed: Garrick Fong MD at 20:02 EDT , Service support , Chest X-Ray 11/18/19 13:35 IMPRESSION: Worsening of infiltrate throughout the right lung. Improving infiltrate of the left lung. Electronically Signed: Garrick Fong MD at 19:55 EDT , Service support , Chest CT 11/19/19 11:07 IMPRESSION: 1. Dense bilateral upper lobe pneumonia greater on the left than the right. 2. Small bilateral pleural effusions with some bibasilar atelectasis. 3. Thyroid goiter with substernal extension on the right. 4. Reactive mediastinal lymphadenopathy. Electronically Signed: Rome Dalton MD at 12:20 EDT Tel , Service support , Dr. Carlson- cardiology Dr. Delgado- pulmonary medicine Dr. Frye- nephrology Dr. Tolliver- ID Operations: None Procedures: 2-D Echocardiogram, Cardiac catheterization Summary of Care Provided: The patient is a 74 year old M admitted 11/14/2019 due to bilateral leg swelling. 1. NSTEMI-continue aspirin, statin, Plavix, carvedilol. Cardiology consulted during admission. 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 [facility] transfer for coronary revascularization. 2. Acute hypoxic respiratory failure secondary to acute heart failure with reduced ejection fraction and aspiration pneumonia-continue supplement oxygen to maintain O2 at or above 90%. Oxygen currently stable on room air. Pulmonary medicine/cardiology consulted during admission. 3. Acute heart failure with reduced ejection fraction-echocardiogram demonstrates an EF of 45%, stage I diastolic dysfunction, pulmonary artery systolic pressure 50 to 55 mmHg. BNP greater than [address] demonstrates bilateral upper lobe pneumonia greater on the left than the right. Small bilateral pleural effusions. IV Lasix discontinued, transitioned to oral Lasix 40 mg daily. Strict I&O. Daily weight. 4. Aspiration pneumonia, dysphagia-completed treatment with IV Zosyn. ID and pulmonary medicine following. Continue speech therapy eval. 5. Severe sepsis secondary to pneumonia and UTI-completed treatment with IV zosyn as noted above. 6. Acute kidney injury-improved. Nephrology following. Trend BMP. 7. Acute rhabdomyolysis-resolved. 8. Hypertension-continue carvedilol. Amlodipine discontinued. 9. Parkinson's disease- PT/OT. Continue carbidopa/levodopa. 10. Paroxysmal atrial fibrillation/nonsustained V. tach-history of ablation. AICD in place. Continue carvedilol. 11. Type 2 diabetes [id number] with sliding scale insulin. 12. Hypernatremia-improving, trend BMP. General: Alert, Oriented x3, Cooperative HEENT: Atraumatic, PERRLA, EOMI, Normocephalic Neck: Supple, No JVD, Negative Carotid Bruits Lungs: Clear to auscultation, Normal air movement Cardiovascular: Regular rate, No murmurs Abdomen: Bowel Sounds Present, Soft, Non Tender Extremities: No clubbing, No cyanosis, No edema, Capillary Refill Less than 3 Seconds Skin: No rashes, No breakdown Musculoskeletal: No Tenderness to Palpation of Joints or Extremities Neurological: Cranial nerves II-XII grossly intact, Neuro grossly intact Psych/Mental Status: Normal Affect, Appropriate Patient seen and examined prior to discharge. Physical assessment as noted above. Patient stable at time of discharge to [facility] for further cardiac evaluation and management. This patient was seen by HUNTER Reyes under the supervision of Dr. Monte. - Physical Exam Vitals/I&O's: Vital Signs Temp Pulse Resp BP Pulse Ox 97.9 F 79 18 121/75 H 98 11/25/19 07:55 11/25/19 07:55 11/25/19 07:55 11/25/19 07:55 11/25/19 08:08 Oxygen Flow Rate (L/min) 2 Oxygen Delivery Method Room Air Weight: 218 lb 7.649 oz Body Mass Index (BMI) 44.6 Intake and Output for Last 24 Hours 11/23/19 11/24/19 11/25/19 23:59 23:59 23:59 Intake Total 220 / 220 125 / 125 75 / 75 Balance 220 / 220 125 / 125 75 / 75 Laboratory Results 11/24/19 11:56: POC Glucose 102 11/24/19 16:42: POC Glucose 129 H 11/24/19 21:21: POC Glucose 109 11/25/19 06:00: WBC 10.0, RBC 4.21 L, Hgb 12.6 L, Hct 40.9, MCV 97.1 H, MCH 29.9, MCHC 30.8 L, RDW Std Deviation 49.2 H, RDW Coeff of Sammi 13.8, Plt Count 249, MPV 11.3 11/25/19 06:00: Sodium 142, Potassium 3.9, Chloride 109 H, Carbon Dioxide 27.0, Anion Gap 6, BUN 29 H, Creatinine 1.52 H, Estim Creat Clear Calc 31.93, Est GFR (MDRD) Af Amer 58 L, Est GFR (MDRD) Non-Af 48 L, BUN/Creatinine Ratio 19.1, Glucose 105, Calcium 9.0 11/25/19 06:51: POC Glucose 99 Home Medications: Medications to take at Discharge Allopurinol [Zyloprim] 100 mg PO BIDCM 12/04/17 Amlodipine Besylate [Norvasc] 10 mg PO DAILY 12/04/17 Aspirin E.C. [Ecotrin] 81 mg PO DAILY@0800 12/04/17 Carbidopa/Levodopa [Carbidopa-Levo 25-100 mg Odt] 2 each PO TID 12/04/17 Docusate Sodium [Colace] 200 mg PO DAILY 12/04/17 Esomeprazole Magnesium 40 mg PO DAILY 12/04/17 Fluticasone 110 Mcg [Flovent 110 Mcg] 1 puff INHALATION BID 12/04/17 Metformin HCl 500 mg PO DAILY 12/04/17 Metoprolol Succinate [Toprol Xl] 50 mg PO DAILY 12/04/17 Multivit-Min/Folic/Vit K/Lycop [One-A-Day Men's 50 Plus Tablet] 1 each PO DAILY 12/04/17 Challis-3 Fatty Acids/Fish Oil [Fish Oil 1,000 mg Capsule] 1 each PO DAILY 12/04/17 Brimonidine Tartrate 0.2% [Brimonidine 0.2% 5Ml Bottle] 1 drop OPHTHALMIC BID 12/05/17 Furosemide 40 mg PO DAILY 04/09/19 Garlic 500 mg PO DAILY 04/09/19 Primary Care Physician: Aleksandr Decker MD [Primary Care Provider] - Disposition: Acute care Hospital Minutes spent on discharge:: 35 Patient Condition:: Stable Medical Necessity - Tobacco Use Smoking Status: Former smoker Meaningful Use Info Meaningful Use Diagnoses (Choose all that apply): AMI, CHF - AMI/Post PCI/Angioplasty Aspirin given w/in 24hrs of arrival?: Yes ASA at discharge?: Yes Statins at discharge?: Yes Taiwo/ARB at discharge?: No Reason Taiwo/ARB not ordered:: Worsening renal function Beta Sharon at discharge?: Yes Done w/ Acute OK measure.: Yes - CHF TAIWO/ARB ordered at discharge?: No Reason TAIWO/ARB not ordered?: Worsening renal function Documented LVEF (%): 45 <Isabel Monte - Last Filed: 11/25/19 11:45> Discharge Date and Diagnosis - Secondary Discharge Diagnosis Chronic Problems: Chronic Problems CKD (chronic kidney disease) (Chronic) Parkinson disease (Chronic) Diabetes (Chronic) Hospital Course and Treatment Summary of Care Provided: This patient was seen in conjunction with Minoo Rasmussen NP. I have independently interviewed and examined the patient and reviewed pertinent historical, laboratory, and other data. Please refer to her note for patient's presentation, findings, and recommendations. 74-year-old male who has history of CAD status post CABG, status post pacemaker, type II DM, stage III CKD, Parkinson's disease, COPD who presented with bilateral leg swelling. Patient has had a long and protracted hospital stay.?Acute hypoxic and hypercapnic respiratory failure, acute non-ST elevation OK, severe sepsis, acute on chronic systolic CHF, EF 45% Patient underwent cardiac catheterization and findings with that for multivessel coronary artery disease. Patient was referred for surgical evaluation for coronary revascularization. He was accepted to [facility]. In this hospital stay, he was followed by nephrology for CHIKA on CKD stage IIIb, his renal function was improved and back to baseline at the time of admission. He was also seen by infectious disease for severe sepsis secondary to E. coli UTI and aspiration pneumonia. He completed antibiotics -IV Zosyn in the hospital on 11/21/19 On the day of discharge, patient was seen and examined. He denied any chest pain or dizziness or palpitation. Telemetry showed a few PVCs. No acute events overnight. Vitals were reviewed -stable Physical Exam: Gen: Comfortable, not pale, not jaundiced, alert oriented x3, morbidly obese CVS:HS I +II, regular, no murmurs RESP: CTA GI: BS present and normal, nontender, no palpable organs EXT:No edema - Physical Exam Vitals/I&O's: Vital Signs Temp Pulse Resp BP Pulse Ox 97.9 F 79 18 121/75 H 98 11/25/19 07:55 11/25/19 07:55 11/25/19 07:55 11/25/19 07:55 11/25/19 08:08 Oxygen Flow Rate (L/min) 2 Oxygen Delivery Method Room Air Weight: 99.1 kg Body Mass Index (BMI) 44.6 Intake and Output for Last 24 Hours 11/23/19 11/24/19 11/25/19 23:59 23:59 23:59 Intake Total 220 / 220 125 / 125 75 / 75 Balance 220 / 220 125 / 125 75 / 75 Laboratory Results 11/24/19 11:56: POC Glucose 102 11/24/19 16:42: POC Glucose 129 H 11/24/19 21:21: POC Glucose 109 11/25/19 06:00: WBC 10.0, RBC 4.21 L, Hgb 12.6 L, Hct 40.9, MCV 97.1 H, MCH 29.9, MCHC 30.8 L, RDW Std Deviation 49.2 H, RDW Coeff of Sammi 13.8, Plt Count 249, MPV 11.3 11/25/19 06:00: Sodium 142, Potassium 3.9, Chloride 109 H, Carbon Dioxide 27.0, Anion Gap 6, BUN 29 H, Creatinine 1.52 H, Estim Creat Clear Calc 31.93, Est GFR (MDRD) Af Amer 58 L, Est GFR (MDRD) Non-Af 48 L, BUN/Creatinine Ratio 19.1, Glucose 105, Calcium 9.0 11/25/19 06:51: POC Glucose 99 Inpatient E&M: [id number] Disch Hosp
== END 2019-11-25 09:14 | disposition short-term general hospital (02) | DRG 871 ==
LOC: ED 22:26 → ICU 23:04 → PCU 11-17 14:18
PROVIDERS: Family Medicine; Internal Medicine; Internal Medicine Critical Care Medicine; Internal Medicine Nephrology; Nurse Practitioner Family; Physician Assistant; Admitting Provider Hospitalist; Emergency Provider Student in an Organized Health Care Education/Training Program; Visit Provider Internal Medicine
DX: A41.9 Sepsis, unspecified organism (principal); J69.0 Pneumonitis due to inhalation of food and vomit; J96.01 Acute respiratory failure with hypoxia; J96.02 Acute respiratory failure with hypercapnia; I21.4 Non-ST elevation (NSTEMI) myocardial infarction; I50.23 Acute on chronic systolic (congestive) heart failure; N17.0 Acute kidney failure with tubular necrosis; N39.0 Urinary tract infection, site not specified; I13.0 Hypertensive heart and chronic kidney disease with heart failure and stage 1 through stage 4 chronic kidney disease, or unspecified chronic kidney disease; N18.32 Chronic kidney disease, stage 3b; N17.9 Acute kidney failure, unspecified; J44.0 Chronic obstructive pulmonary disease with (acute) lower respiratory infection; E87.2 Acidosis; I47.2 Ventricular tachycardia; M62.82 Rhabdomyolysis; E87.0 Hyperosmolality and hypernatremia; Z68.41 Body mass index [BMI] 40.0-44.9, adult; B96.20 Unspecified Escherichia coli [E. coli] as the cause of diseases classified elsewhere; R65.20 Severe sepsis without septic shock; E11.22 Type 2 diabetes mellitus with diabetic chronic kidney disease; I27.20 Pulmonary hypertension, unspecified; I48.0 Paroxysmal atrial fibrillation; G20 Parkinson's disease; E11.65 Type 2 diabetes mellitus with hyperglycemia; E78.5 Hyperlipidemia, unspecified; M10.9 Gout, unspecified; E66.01 Morbid (severe) obesity due to excess calories; Z79.4 Long term (current) use of insulin; Z79.82 Long term (current) use of aspirin; Z79.51 Long term (current) use of inhaled steroids; Z79.899 Other long term (current) drug therapy; Z87.891 Personal history of nicotine dependence; Z95.810 Presence of automatic (implantable) cardiac defibrillator; Z95.1 Presence of aortocoronary bypass graft; R13.10 Dysphagia, unspecified; I25.10 Atherosclerotic heart disease of native coronary artery without angina pectoris; Z95.5 Presence of coronary angioplasty implant and graft
CPT/HCPCS: 31500; 31720; 36415; 36600; 51702; 71045; 71046; 71250; 74230; 76770; 80048; 80053; 80069; 80202; 81001; 82550; 82803; 82962; 83605; 83735; 83880; 84100; 84484; 85025; 85027; 85610; 85730; 87040; 87070; 87086; 87088; 87186; 87205; 87449; 87633; 87635; 87641; 92507; 92526; 92610; 92611; 93005; 93306; 93454; 94002; 94003; 94660; 97110; 97116; 97162; 97163; 97167; 97530; 97535; 97802; 97803; 99152; 99153; 99251; 99285; 99406; J7030; J7040; J7050; Q9957; Q9967; A4216; C1769; C1894; C8929; G0463; J1940; J3010; U0003

== ENCOUNTER 2020-05-17 11:30 | Inpatient (IN) | payer MEDICARE, OTHER, SELFPAY ==
[2019-11-15 08:15] VITALS: BMI 44.6
[2020-05-17] VITALS (8 sets, daily range): BP systolic 110–129; BP diastolic 54–72; PULSE 62–78; RESP 16–20; TEMP 36.6–37.4; O2SAT 94–96; BMI 39.6
--- NOTE | 2020-05-17 11:50 | RAD_ITS ---
STUDY: X-RAY CHEST REASON FOR EXAM: Male, 74 years old. fever TECHNIQUE: Single AP portable view of the chest. COMPARISON: 11/18/2019. FINDINGS: Moderate lung volumes. Lungs are clear. No infiltrates or effusions. No congestive failure. There is moderate cardiac enlargement. Previous CABG. Pacemaker is seen with leads terminating in the right atrium and right ventricle.. Normal mediastinum and patrice. Normal visualized pulmonary arteries. Normal visualized aortic arch and descending thoracic aorta. Normal visualized thoracic spine. Normal visualized ribs, clavicles, and shoulders. There is no demonstrated abnormality of the visualized soft tissue structures of the upper abdomen. RAD/Chest 1 View (Portable) IMPRESSION: No definite acute or significant abnormality seen. Electronically Signed: Garrick Fong MD at 12:47 EDT , Service support ,
--- NOTE | 2020-05-17 11:51 | EKG12_ITS ---
Test Reason : Blood Pressure : / mmHG Vent. Rate : 067 BPM Atrial Rate : 067 BPM P-R Int : 212 ms QRS Dur : 140 ms QT Int : 474 ms P-R-T Axes : 043 134 032 degrees QTc Int : 500 ms Sinus rhythm with 1st degree A-V block Right bundle branch block Inferior infarct , age undetermined Anterolateral infarct , age undetermined Abnormal ECG Confirmed by SAMIRA BRAVO, TARAS ([id number]), editorial intern THOMAS FLORES ([id number]) on 05/29/2020 1:03:43 PM Referred By: MARIA LUISA Confirmed By:TARAS HOGAN MD
--- NOTE | 2020-05-17 11:56 | ED.VISSUMM ---
- ER Visit Summary Date of Service: 05/17/20 Chief Complaint: Generalized weakness History of Present Illness: The patient is a 74 M presenting with generalized weakness and fatigue. Patient was diagnosed with a UTI on Monday by his primary care physician and started on Macrobid. Family states that he has had no improvement since starting the antibiotic. He continues to complain of dysuria and urinary frequency. He has had subjective fever and myalgias. He has had a decreased appetite and has not been eating. Complains of overall generalized weakness and fatigue. Denies chest pain or shortness of breath. Denies other complaints. Physical Examination: Vitals are stable. Temperature 99.4. Alert no acute distress. HEENT exam is unremarkable. Neck is supple. Lungs are clear and equal bilaterally. Heart is regular rate and rhythm. Abdomen is soft mild suprapubic tenderness with no guarding or rebound Extremities are unremarkable. Skin is warm and dry. No focal neurologic deficit. Remainder of exam is unremarkable. Emergency Department Course and Treatment: EKG is sinus rhythm rate of 67 with right bundle branch block, similar to previous. Chest x-ray read by myself and radiology shows no definite acute or significant abnormality seen. CBC shows white count 12.8, hemoglobin 10.6, platelet 116. Chemistries show glucose 140, BUN 39, creatinine 2.27. Previous creatinine 1.52. Urinalysis shows 0 white cells, 1+ bacteria. Troponin 0.034. Covid negative. Urine culture was sent. Patient has a partially treated urinary tract infection and was given Rocephin IV. He was given IV fluids. Discussed with the hospitalist for admission. Disposition: Admission Impression: CHIKA, UTI This note was generated with [employer] dictation software. It may contain incorrect words, spelling, and punctuation that were not noted in review of the chart prior to signing ED Disposition - Plan for ED Patient: Referrals: Aleksandr Decker MD [Primary Care Provider] -
[2020-05-17 12:09] LABS: Absolute Lymphocyte Count 0.91 X10^3/uL (0.83-4.51); Absolute Neutrophil Count 10.7 X10^3/uL (2.0-7.7); Basophil# 0.03 X10^3/uL; Basophil% 0.2 % (0-1); Eosinophil# 0.01 X10^3/uL; Eosinophils% 0.1 % (0-5); Hematocrit 33.9 % (40-54); Hemoglobin 10.6 g/dL (13.0-16.5); Lymphocyte # 0.91 X10^3/ul (4.0); Lymphocyte % 7.1 % (19-41); Mean Corp Hgb Conc 31.3 g/dL (32-36); Mean Corpuscular Hgb 28.6 pg (27.0-32.0); Mean Corpuscular Volume 91.6 fL (80-94); Mean Platelet Vol. 11.7 fl (6.2-12.0); Monocyte# 1.06 X10^3/uL; Monocyte% 8.3 % (0-10); NRBC Flagged by Analyzer 0 % (0-5); Neutrophil # 10.66 X10^3/uL (2.7-7.7); Neutrophil % 83.6 % (47-70); Platelet Count 116 K/mm3 (150-450); RBC Distribution Width CV 16.2 % (11.6-14.6); RBC Distribution Width SD 54.9 fl (35.1-43.9); White Blood Count 12.8 K/mm3 (4.4-11.0)
[2020-05-17 12:24] LABS: Anion Gap 7 (5-15); BUN 39 mg/dL (7-18); BUN/Creat Ratio 17.2 RATIO (10-20); Calcium,Total 8.9 mg/dL (8.5-10.1); Chloride 104 mmol/L (98-107); Creatinine, Serum 2.27 mg/dL (0.70-1.30); EST Glomerular Filtration Rate 30 mL/min (>60); Est Glom Filt Rate - Afr Amer 36 mL/min (>60); Estimated Creatinine Clearance 20.48 ml/min; Glucose 140 mg/dL (74-106); Potassium 3.5 mmol/L (3.5-5.1); Sodium Level 138 mmol/L (136-145)
[2020-05-17 12:26] LABS: Mucous, Urine 0 SEEN /hpf (<or=2+); Squamous Epithelial Cells - UA 0 SEEN /hpf (0-5); White Blood Cells 0 SEEN /hpf (0-5)
[2020-05-17 12:36] LABS: Color, Urine Yellow (Yellow); Glucose, Dipstick Normal (Normal); Ketone-Dipstick Negative (Negative); Leukocyte Esterase-Dipstick 100 /ul (Negative); Nitrite-Dipstick Negative (Negative); Occult Blood-Urine 150 /ul (Negative); Protein-Dipstick 15 mg/dl (Negative); Urine Bilirubin Dipstick Negative (Negative); Urine Clarity Sl. Cloudy (Clear); Urine Urobilinogen 1 mg/dl (Normal)
[2020-05-17 12:44] LABS: Amorphous Sediment 1+; Bacteria 1+ /hpf (None Seen); Red Blood Cells-Urine 0-5 SEEN /hpf (0-5)
--- NOTE | 2020-05-17 13:15 | PCM.HP.STD ---
Problem List (1) UTI (urinary tract infection) Status: Acute Qualifiers: Urinary tract infection type: acute cystitis (2) Weakness Status: Acute (3) CHIKA (acute kidney injury) Status: Acute (4) CKD (chronic kidney disease) Status: Chronic Qualifiers: Chronic kidney disease stage: stage 3 (moderate) Chronic kidney disease stage 3 subtype: stage 3a (GFR 45-59) Qualified Code(s): N18.31 - Chronic kidney disease, stage 3a (5) Parkinson disease Status: Chronic (6) Diabetes Status: Chronic Qualifiers: Diabetes mellitus type: type 2 Diabetes mellitus emt intermediate insulin use: without skilled nursing use Diabetes mellitus complication status: with other specified complication Qualified Code(s): E11.69 - Type 2 diabetes mellitus with other specified complication History of Present Illness Date of Admission: 05/17/20 Chief Complaint: Dysuria, generalised malaise The patient is a 74 year old M with PMHx of CAD s/p CABG, Parkinson's disease, paroxysmal atrial fibrillation, hypertension, type II DM who comes in with generalized weakness, dysuria, frequency, fever ongoing for the past 3 days. Patient was seen by his primary care doctor and diagnosed with acute UTI and started on Bactrim(05/15/20). He however has become progressively weak, been having persistent dysuria, frequency, poor appetite, poor p.o. intake. His family decided to bring him to the emergency room because he was not able to walk.At time of being seen, he feels improved, complains of lower abdominal discomfort. Denied any dysuria. Denied any sick contact. He has had all his COVID-19 vaccination. At the time of being, vitals seen showed temperature of 99.4F, heart rate 78, blood pressure 120/72, respiratory rate of 18, SPO2 was 94% on room air. Admitting blood work showed RBC count 12.8, hemoglobin 10.6, platelet count 116, sodium 138, potassium 3.5, chloride 104, bicarbonate 27, BUN 39, creatinine 2.27, baseline creatinine is 1.5. Troponin 0 0.034. UA slightly cloudy, nitrite negative, leukocyte Estrace 100. Urine cultures are pending. COVID-19 rapid antigen test is negative. Chest x-ray shows no definite acute cardiopulmonary abnormality. Past Medical History Past Medical History (Chronic Problems): Chronic Problems CKD (chronic kidney disease) (Chronic) Parkinson disease (Chronic) Diabetes (Chronic) Allergies No Known Allergies Allergy (Verified 05/17/20 11:32) Home Medications: Ambulatory Orders Medication Instructions Recorded Allopurinol [Zyloprim] 100 mg PO BIDCM 12/04/17 Amlodipine Besylate [Norvasc] 10 mg PO DAILY 12/04/17 Aspirin E.C. [Ecotrin] 81 mg PO DAILY@0800 12/04/17 Carbidopa/Levodopa [Carbidopa-Levo 2 each PO TID 12/04/17 25-100 mg Odt] Docusate Sodium [Colace] 200 mg PO DAILY 12/04/17 Esomeprazole Magnesium 40 mg PO DAILY 12/04/17 Fluticasone 110 Mcg [Flovent 110 1 puff INHALATION BID 12/04/17 Mcg] Metoprolol Succinate [Toprol Xl] 50 mg PO DAILY 12/04/17 Multivit-Min/Folic/Vit K/Lycop 1 each PO DAILY 12/04/17 [One-A-Day Men's 50 Plus Tablet] Hensel-3 Fatty Acids/Fish Oil [Fish 1 each PO DAILY 12/04/17 Oil 1,000 mg Capsule] Brimonidine Tartrate 0.2% 1 drop OPHTHALMIC BID 12/05/17 [Brimonidine 0.2% 5Ml Bottle] Furosemide 40 mg PO DAILY 04/09/19 Garlic 500 mg PO DAILY 04/09/19 Surgical History: Surgical History (Last Updated 11/25/19 @ 12:54 by Narda Brown) History of left heart catheterization Onset Date: 11/22/19 Z98.890 Surgical History: - - CABG, ablation for Afib Psychiatric History: No pertinent psych hx Lives: Spouse/ Significant Other Smoking Status: Former smoker Tobacco Use: Non-smoker Alcohol: None Drugs: None - *Family History Paternal History Items: - - History was taken from patient's daughter who is unsure of paternal medical history. She thinks that patient's father had colon cancer. Maternal History Items: Heart Disease, Hypertension Review of Systems Constitutional: Reports: Anorexia, Fever, Malaise, Weakness, Fatigue. Denies: Chills, Night Sweats, Weight Change Eyes: Denies: Blurred vision, Cataracts, Conjunctivae Inflammation, Pain, Redness HEENT: Denies: Difficulty Hearing, Difficulty Swallowing, Head Aches, Hearing Changes, Sinus Congestion, Sinus Drainage Cardiovascular: Denies: Chest Pain, Claudication, Orthopnea, Palpitations, Paroxysmal Noc. Dyspnea Respiratory: Denies: Cough, Hemoptysis, Shortness of breath at rest, Shortness of breath upon exertion, Sputum production Gastrointestinal: Denies: Abdominal Pain, Hematemesis, Hematochezia, Nausea, Vomiting Genitourinary: Reports: Dysuria, Frequency, Urgency. Denies: Hematuria, Incontinence, Nocturia Musculoskeletal: Denies: Joint Pain, Joint stiffness, Joint swelling, Joint Tenderness Skin: Denies: Pruritis, Rash, Wounds Neurological: Denies: Difficulty swallowing, Focal weakness, Numbness, Tingling Psychiatric: Denies: Anxiety, Depression, Homicidal Ideations, Suicidal Ideations Hematologic/ Lymphatic: Denies: Easy Bruising, Easy Bleeding VTE Information - Inpt Only VTE Present on Admission: No VTE Pharm Prophylaxis ordered?: Yes Patient Problems: Active and Suspected Problems UTI (urinary tract infection) (Acute) Weakness (Acute) CHIKA (acute kidney injury) (Acute) - Physical Exam Vitals/I&O's: Vital Signs Temp Pulse Resp BP Pulse Ox 99.3 F H 65 16 113/56 L 94 05/17/20 12:32 05/17/20 12:32 05/17/20 12:32 05/17/20 12:32 05/17/20 12:32 Oxygen Delivery Method Room Air Weight: 95.254 kg Body Mass Index (BMI) 39.6 General: Alert, Oriented x3, Cooperative, No apparent distress HEENT: Atraumatic, PERRLA, EOMI, Normocephalic Oral: Dry Mucosa Neck: Supple Lungs: Diminished Cardiovascular: Regular rate, Regular Rhythm, Normal S1, Normal S2, No murmurs Abdomen: Bowel Sounds Present, Soft, Non Tender, Non-Distended, No Hepato-splenomegaly Extremities: Edema - bilateral leg edema +1-2 Skin: No rashes Musculoskeletal: No Tenderness to Palpation of Joints or Extremities Lymphatic: No Cervical, Supraclavicular, or Inguinal Adenopathy Neurological: Cranial nerves II-XII grossly intact, Neuro grossly intact Psych/Mental Status: Normal Affect, Appropriate Microbiology Past 72 Hours 05/17/20 12:10 Mucosa - Nose SARS-CoV-2 Antigen (Rapid) - Final Laboratory Results 05/17/20 12:00: WBC 12.8 H, RBC 3.70 L, Hgb 10.6 L, Hct 33.9 L, MCV 91.6, MCH 28.6, MCHC 31.3 L, RDW Std Deviation 54.9 H, RDW Coeff of Sammi 16.2 H, Plt Count 116 L, MPV 11.7, Immature Gran % (Auto) 0.700, Neut % (Auto) 83.6 H, Lymph % (Auto) 7.1 L, [place] % (Auto) 8.3, Eos % (Auto) 0.1, Baso % (Auto) 0.2, Absolute Neuts (auto) 10.7 H, Absolute Lymphs (auto) 0.91, Nucleated RBC % 0 05/17/20 12:00: Sodium 138, Potassium 3.5, Chloride 104, Carbon Dioxide 27.0, Anion Gap 7, BUN 39 H, Creatinine 2.27 H, Estim Creat Clear Calc 20.48, Est GFR (MDRD) Af Amer 36 L, Est GFR (MDRD) Non-Af 30 L, BUN/Creatinine Ratio 17.2, Glucose 140 H, Calcium 8.9, Troponin I 0.034 05/17/20 12:10: Urine Color Yellow, Urine Clarity Sl. Cloudy, Urine pH 6.0, Ur Specific [place] 1.010, Urine Protein 15 H, Urine Glucose (UA) Normal, Urine Ketones Negative, Urine Occult Blood 150 H, Urine Nitrite Negative, Urine Bilirubin Negative, Urine Urobilinogen 1 H, Ur Leukocyte Esterase 100 H, Urine RBC 0-5 SEEN, Urine WBC 0 SEEN, Ur Squamous Epith Cells 0 SEEN, Amorphous Sediment 1+, Urine Bacteria 1+, Urine Mucus 0 SEEN Assessment/Plan All Active Problems UTI (urinary tract infection) (Acute) Weakness (Acute) Dysuria (Acute) CHIKA (acute kidney injury) (Acute) Heart failure (Acute) NSTEMI (non-ST elevated myocardial infarction) (Acute) Aspiration pneumonia (Acute) 1. Acute UTI, recently diagnosed 3 days prior to admission, started on Bactrim WBC count is 12.8, patient with low-grade fevers. We will continue on IV ceftriaxone, follow-up on urine cultures, repeat blood work in a.m. 2. CHIKA on CKD stage III, secondary to dehydration and #1 Admitting creatinine is 127; baseline creatinine is 1.5 We will hold Lasix, continue gentle IV fluids 3. CAD status post CABG, EKG shows normal sinus rhythm, no acute ST-T changes Admitting troponin 0.034, patient is asymptomatic; has no chest pain therefore will not trend troponins Continue on aspirin, metoprolol 4. Type II DM, not on medications, will continue to monitor with insulin sliding scale 5. Debility related to acute UTI Will treat for UTI. PT/OT to evaluate and treat 6. Parkinson's disease, continue on Sinemet 7. DVT PPx- Lovenox SC 8. Code status - Full code I discussed and explained in details the various types of CODE STATUS-full code, DNR CCA, DNR CC. Patient chose full code. He wants everything done to keep him alive. His family will then decide with team on goals of care, if he is in a persistent vegetative state. Time spent discussing CODE STATUS 18 minutes Inpatient E&M: 78807 Init Hosp L3 Procedures: 71451 Advncd Care Plan 30 Min
[2020-05-17] MEDS: Ceftriaxone 1 GM/50 ML BAG IV (13:48)
[2020-05-17] MEDS: 0.9% Normal Saline 1,000 ML 100 ML IV (16:51)
[2020-05-17] MEDS: Heparin Injection (Vial) 5,000 UNIT/ML VIAL 5000 UNIT SC ×2 (16:53→21:38)
[2020-05-17] MEDS: Allopurinol 100 MG Tablet PO (16:54)
[2020-05-17] MEDS: Carbidopa/Levodopa 25/100 Tablet PO (16:54)
[2020-05-17 17:11] LABS: Bedside Glucose 122 mg/dL (70-110)
[2020-05-17] MEDS: Budesonide Respules 0.5 MG/2 ML AMPUL.NEB. INHALATION (19:15)
[2020-05-17] MEDS: Menthol/Lanolin/Calamine/Znox 113 GM Tube 1 APPLIC TOPICAL (20:38)
[2020-05-17 21:40] LABS: Bedside Glucose 110 mg/dL (70-110)
[2020-05-18 02:13] VITALS: BP 107/56; PULSE 72; RESP 20; TEMP 36.9; O2SAT 95
[2020-05-18] MEDS: Heparin Injection (Vial) 5,000 UNIT/ML VIAL 5000 UNIT SC ×3 (06:26→21:23)
[2020-05-18] MEDS: Carbidopa/Levodopa 25/100 Tablet PO ×3 (06:28→17:30)
[2020-05-18 06:41] LABS: Bedside Glucose 118 mg/dL (70-110)
[2020-05-18 06:44] LABS: Absolute Lymphocyte Count 1.34 X10^3/uL (0.83-4.51); Absolute Neutrophil Count 7.8 X10^3/uL (2.0-7.7); Basophil# 0.02 X10^3/uL; Basophil% 0.2 % (0-1); Eosinophil# 0.09 X10^3/uL; Eosinophils% 0.9 % (0-5); Hematocrit 31.6 % (40-54); Hemoglobin 9.8 g/dL (13.0-16.5); Lymphocyte # 1.34 X10^3/ul (4.0); Lymphocyte % 13.3 % (19-41); Mean Corpuscular Hgb 28.9 pg (27.0-32.0); Mean Corpuscular Volume 93.2 fL (80-94); Mean Platelet Vol. 12.6 fl (6.2-12.0); Monocyte# 0.79 X10^3/uL; Monocyte% 7.8 % (0-10); NRBC Flagged by Analyzer 0 % (0-5); Neutrophil # 7.79 X10^3/uL (2.7-7.7); Neutrophil % 77.4 % (47-70); Platelet Count 100 K/mm3 (150-450); RBC Distribution Width CV 16.5 % (11.6-14.6); RBC Distribution Width SD 55.8 fl (35.1-43.9); Red Blood Count 3.39 M/mm3 (4.6-6.2); White Blood Count 10.1 K/mm3 (4.4-11.0)
[2020-05-18 07:08] LABS: ALB/GLOB Ratio 0.7 RATIO (0.9-2.4); AST(SGOT) 22 U/L (15-37); Alanine Aminotransfer ALT/SGPT 8 U/L (16-61); Albumin, Serum 2.6 g/dL (3.2-5.0); Alkaline Phosphatase 120 U/L (45-117); Anion Gap 7 (5-15); BUN 33 mg/dL (7-18); BUN/Creat Ratio 17.6 RATIO (10-20); Calcium,Total 8.7 mg/dL (8.5-10.1); Chloride 106 mmol/L (98-107); Creatinine, Serum 1.88 mg/dL (0.70-1.30); EST Glomerular Filtration Rate 37 mL/min (>60); Est Glom Filt Rate - Afr Amer 45 mL/min (>60); Estimated Creatinine Clearance 24.73 ml/min; Globulin 3.5 g/dL (2.2-4.2); Glucose 98 mg/dL (74-106); Potassium 3.3 mmol/L (3.5-5.1); Protein, Total 6.1 g/dL (6.4-8.2); Sodium Level 141 mmol/L (136-145)
[2020-05-18] MEDS: Budesonide Respules 0.5 MG/2 ML AMPUL.NEB. INHALATION ×2 (07:17→19:07)
[2020-05-18 08:02] VITALS: BP 120/52; PULSE 73; RESP 18; TEMP 37; O2SAT 92
[2020-05-18] MEDS: Allopurinol 100 MG Tablet PO ×2 (08:07→17:30)
[2020-05-18] MEDS: Aspirin E.C. 81 MG Tablet PO (08:07)
[2020-05-18] MEDS: Menthol/Lanolin/Calamine/Znox 113 GM Tube 1 APPLIC TOPICAL ×2 (08:07→21:23)
[2020-05-18] MEDS: BRIMONIDINE 0.2% 5ML BOTTLE 1 DRP EACH EYE ×2 (08:07→21:22)
[2020-05-18 08:08] VITALS: BP 120/52; PULSE 73
[2020-05-18] MEDS: Pantoprazole Sodium 40 MG Tablet PO (08:08)
[2020-05-18] MEDS: Docusate Sodium 100 MG Capsule 200 MG PO (08:08)
[2020-05-18] MEDS: Metoprolol(XL)Succ 50 MG Tablet PO (08:08)
[2020-05-18] MEDS: amLODIPine 10 MG Tablet PO (08:08)
[2020-05-18] MEDS: Potassium Chloride Oral Tablet 20 MEQ 40 MEQ PO (08:11)
--- NOTE | 2020-05-18 08:52 | NURSING ---
DR PALM HERE SEEING PT. MADE AWARE OF R SWOLLEN TESTICLE & TENDERNESS. MD ASSESSED PT.
--- NOTE | 2020-05-18 09:15 | CASEMGMT ---
Social Work Note Per bellhop service captain questions, Pt has completed HCPOA and LW and provided copies to [facility]. SW reviewed chart, both HCPOA and LW are on pt's echart. SW printed off copies and placed on pt's chart. Patti Rendon BAND LINING BANDER, SOFTBALL UMPIRE
[2020-05-18] MEDS: 0.9% Saline Lock 10 ML Syringe IV ×2 (10:13→21:21)
[2020-05-18] MEDS: Ceftriaxone 1 GM/50 ML BAG IV (10:13)
--- NOTE | 2020-05-18 10:35 | CASEMGMT ---
FER GALINDO Assessment: Face to Face with pt for initial transition planning/care coordination assessment. FER GALINDO introduced self and role at [facility], pt voices understanding and consents to assessment. Pt is A/O x4 and answers all questions appropriately at this time. Pt sitting up in chair at this time in no distress.Care providers, pharmacy, and demographics verified/updated. Admitting Dx: Acute UTI/debility PCP: Pt states Dr. Decker has recently retired and his PCP is in that office but he is unsure of the name. 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 Pt Gely is DPOA. LNOK: , Gely; daughter Leanna Camacho; son, Brian Alexis Living Arrangements: Pt lives with and son in a 2 story house with no steps to enter. Pt reports being I in bathing and dressing. Denies any concerns at home. Transportation: Pt reports driving some and his dtr provides transportation otherwise. DME/HHC/SNF: Pt reports having a cane, walker, BSC and CPAP at home. CPAP is through [employer]. Pt denies having HHC and has had a SNF stay at [facility]. Pt states no concerns with going home at time of dc. Pt states no further concerns/needs. CM to follow to plan for a safe dc. Pt states he does not need therapy at home. States I do my own therapy. 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 Advised pt to ask CM if any further question/concerns/needs arise, voices understanding. Pt Goal: Home Plan: Home with family support, follow up plans in place.
--- NOTE | 2020-05-18 10:51 | PN_ITS ---
Patient Problems: Active and Suspected Problems UTI (urinary tract infection) (Acute) Weakness (Acute) CHIKA (acute kidney injury) (Acute) Subjective: Patient seen and examined. He complains of swollen, painful, right testicle, which has been going on for ~ 2 days. He says he noticed the swollen testicle when he started having his urinary symptoms of dysuria. He denies fever, chills, nausea or vomiting. Review of systems was otherwise negative. He has remained hemodynamically stable. Vitals/I&O's: Vital Signs Temp Pulse Resp BP Pulse Ox 98.6 F 73 18 120/52 L 92 05/18/20 08:02 05/18/20 08:08 05/18/20 08:02 05/18/20 08:08 05/18/20 08:02 Oxygen Flow Rate (L/min) 2 Oxygen Delivery Method Room Air Weight: 210 lb 1.608 oz Body Mass Index (BMI) 39.6 Intake and Output for Last 24 Hours 05/16/20 05/17/20 05/18/20 23:59 23:59 23:59 Intake Total 1050 / 1050 1115 / 1115 Balance 1050 / 1050 1115 / 1115 General: Alert, Oriented x3, Cooperative, No apparent distress HEENT: Atraumatic, PERRLA, EOMI, Normocephalic Oral: Dry Mucosa Neck: Supple, No JVD, Negative Carotid Bruits Lungs: Clear to auscultation, Normal air movement, No rhonchi, No wheeze Cardiovascular: Regular rate, Regular Rhythm, Normal S1, Normal S2, No murmurs Abdomen: Bowel Sounds Present, Soft, Non Tender, Non-Distended, No Hepato- splenomegaly, - - right testicle is significantly enlarged, erythematouos, mildly tender, noo differential warmth Extremities: No clubbing, No cyanosis, No edema, Capillary Refill Less than 3 Seconds Skin: No rashes, No breakdown Musculoskeletal: No Tenderness to Palpation of Joints or Extremities Lymphatic: No Cervical, Supraclavicular, or Inguinal Adenopathy Neurological: Cranial nerves II-XII grossly intact, Neuro grossly intact, Motor Exam 5/5 strength throughout Psych/Mental Status: Normal Affect, Appropriate, Alert and oriented to time, place, person, mood and affect Microbiology Past 72 Hours 05/17/20 12:10 Mucosa - Nose SARS-CoV-2 Antigen (Rapid) - Final 05/17/20 12:10 Urine, Clean Catch Urine Culture - Preliminary Gram negative ramandeep Laboratory Results 05/17/20 12:00: WBC 12.8 H, RBC 3.70 L, Hgb 10.6 L, Hct 33.9 L, MCV 91.6, MCH 28.6, MCHC 31.3 L, RDW Std Deviation 54.9 H, RDW Coeff of Sammi 16.2 H, Plt Count 116 L, MPV 11.7, Immature Gran % (Auto) 0.700, Neut % (Auto) 83.6 H, Lymph % (Auto) 7.1 L, [place] % (Auto) 8.3, Eos % (Auto) 0.1, Baso % (Auto) 0.2, Absolute Neuts (auto) 10.7 H, Absolute Lymphs (auto) 0.91, Nucleated RBC % 0 05/17/20 12:00: Sodium 138, Potassium 3.5, Chloride 104, Carbon Dioxide 27.0, Anion Gap 7, BUN 39 H, Creatinine 2.27 H, Estim Creat Clear Calc 20.48, Est GFR (MDRD) Af Amer 36 L, Est GFR (MDRD) Non-Af 30 L, BUN/Creatinine Ratio 17.2, Glucose 140 H, Calcium 8.9, Troponin I 0.034 05/17/20 12:10: Urine Color Yellow, Urine Clarity Sl. Cloudy, Urine pH 6.0, Ur Specific [place] 1.010, Urine Protein 15 H, Urine Glucose (UA) Normal, Urine Ketones Negative, Urine Occult Blood 150 H, Urine Nitrite Negative, Urine Bilirubin Negative, Urine Urobilinogen 1 H, Ur Leukocyte Esterase 100 H, Urine RBC 0-5 SEEN, Urine WBC 0 SEEN, Ur Squamous Epith Cells 0 SEEN, Amorphous Sediment 1+, Urine Bacteria 1+, Urine Mucus 0 SEEN 05/17/20 14:52: POC Glucose 122 H 05/17/20 21:35: POC Glucose 110 05/18/20 05:55: WBC 10.1, RBC 3.39 L, Hgb 9.8 L, Hct 31.6 L, MCV 93.2, MCH 28.9, MCHC 31.0 L, RDW Std Deviation 55.8 H, RDW Coeff of Sammi 16.5 H, Plt Count 100 L, MPV 12.6 H, Immature Gran % (Auto) 0.400, Neut % (Auto) 77.4 H, Lymph % (Auto) 13.3 L, [place] % (Auto) 7.8, Eos % (Auto) 0.9, Baso % (Auto) 0.2, Absolute Neuts (auto) 7.8 H, Absolute Lymphs (auto) 1.34, Nucleated RBC % 0 05/18/20 05:55: Sodium 141, Potassium 3.3 L, Chloride 106, Carbon Dioxide 28.0, Anion Gap 7, BUN 33 H, Creatinine 1.88 H, Estim Creat Clear Calc 24.73, Est GFR (MDRD) Af Amer 45 L, Est GFR (MDRD) Non-Af 37 L, BUN/Creatinine Ratio 17.6, Glucose 98, Calcium 8.7, Total Bilirubin 1.10 H, AST 22, ALT 8 L, Alkaline Phosphatase 120 H, Total Protein 6.1 L, Albumin 2.6 L, Globulin 3.5, Albumin/Globulin Ratio 0.7 L 05/18/20 06:27: POC Glucose 118 H Diagnostic Data Chest X-Ray 05/17/20 11:50 IMPRESSION: No definite acute or significant abnormality seen. Electronically Signed: Garrick Fong MD at 12:47 EDT , Service support , Current Medications Acetaminophen (Acetaminophen 325 Mg Tablet) 650 mg PO Q6H PRN PRN PRN Reason: Pain Score 1-10/Temp > 100.7 F All[facility] ([facility] 100 Mg Tablet) [facility] Last Admin: 05/18/20 08:07 Dose: 100 mg Documented by: Amlodipine Besylate (Amlodipine 10 Mg Tablet) 10 mg PO DAILY [facility] Last Admin: 05/18/20 08:08 Dose: 10 mg Documented by: Aspirin (Aspirin E.C. 81 Mg Tablet) 81 mg PO DAILY@0800 [facility] Last Admin: 05/18/20 08:07 Dose: 81 mg Documented by: Brimonidine Tartrate (Brimonidine 0.2% 5ml Bottle) 1 drp EACH EYE BID [facility] Last Admin: 05/18/20 08:07 Dose: 1 drp Documented by: Budesonide (Budesonide Respules 0.5 Mg/2 Ml Ampul.Neb.) 0.5 mg INHALATION Q12H.RT [facility] Last Admin: 05/18/20 07:17 Dose: 0.5 mg Documented by: Calamine/Phenol (Menthol/Lanolin/Calamine/Znox 113 Gm Tube) 1 applic TOPICAL BID [facility]; Protocol Last Admin: 05/18/20 08:07 Dose: 1 applic Documented by: Carbidopa/Levodopa (Carbidopa/Levodopa 25/100 Tablet) 2 tablet PO TIDAC [facility] Last Admin: 05/18/20 06:28 Dose: 2 tablet Documented by: Dextrose (Dextrose 50%-Water 25 Gm/50 Ml Disp.Syrin) 0 gm IV X1 PRN; Protocol PRN Reason: Hypoglycemia Docusate Sodium (Docusate Sodium 100 Mg Capsule) 200 mg PO DAILY [facility] Last Admin: 05/18/20 08:08 Dose: 200 mg Documented by: Glucagon (Glucagon 1 Mg/Ml Syringe) 1 mg IM .X1 PRN PRN Reason: Hypoglycemia Heparin Sodium (Porcine) (Heparin Injection (Vial) 5,000 Unit/Ml Vial) 5,000 unit SC Q8 [facility] Last Admin: 05/18/20 06:26 Dose: 5,000 unit Documented by: Ceftriaxone Sodium (Rocephin) 1 gm in 50 mls @ 100 mls/hr IV Q24 [facility] Last Admin: 05/18/20 10:13 Dose: 100 mls/hr Documented by: Insulin Human Lispro (Insulin Lispro 100 Unit/Ml Insuln.Pen) 0 unit SC ACHS [facility]; Protocol Last Admin: 05/18/20 06:29 Dose: Not Given Documented by: Magnesium Hydroxide (Magnesium Hydroxide 30 Ml Udc) 30 ml PO DAILY PRN PRN PRN Reason: Constipation Metoprolol Succinate (Metoprolol(Xl)Succ 50 Mg Tablet) 50 mg PO DAILY [facility] Last Admin: 05/18/20 08:08 Dose: 50 mg Documented by: Ondansetron HCl (Ondansetron 4 Mg/2 Ml Vial) 4 mg IV Q8H PRN PRN PRN Reason: NAUSEA/VOMITING Pantoprazole Sodium (Pantoprazole Sodium 40 Mg Tablet) 40 mg PO DAILY [facility] Last Admin: 05/18/20 08:08 Dose: 40 mg Documented by: Psyllium Hydrophilic Mucilloid (Psyllium 1 Packet) 1 packet PO DAILY PRN PRN PRN Reason: Constipation Sodium Chloride (0.9% Saline Lock 10 Ml Syringe) 10 - 40 ml IV UD PRN PRN Reason: SALINE FLUSH Last Admin: 05/18/20 10:13 Dose: 10 ml Documented by: STROKE Vital Signs/Narrative: Vital Signs Temp Pulse Resp BP Pulse Ox 05/18/20 08:08 73 120/52 L 05/18/20 08:02 98.6 F 73 18 120/52 L 92 Medical Necessity - Tobacco Use Smoking Status: Former smoker Tobacco Use: Non-smoker Assessment/Plan All Active Problems UTI (urinary tract infection) (Acute) Weakness (Acute) Dysuria (Acute) CHIKA (acute kidney injury) (Acute) Heart failure (Acute) NSTEMI (non-ST elevated myocardial infarction) (Acute) Aspiration pneumonia (Acute) #UTI * failed outpatient treatment. Had been on Bactrim on outpatient basis * wbc was 12.8 on admission, now down to 10.1 * on IV ceftriaxone * urine cultures growing gram negative rods * await speciation t adjust antibiotics as needed * #Chika on CKD 3b * Cr is 2.27, but has trended down to 1.88 today * continue gentle hydration with IVF * baseline Cr is 1.6 #Enlarged right testis * consult urology * get testicular USG. * #Hypokalemia: K is 3.3. Will replace and monitor #CAD s/p CABG * on aspirin and metoprolol * #Debility * may be related to UTI, as well has his Parkinson's Disease. * PT/OT on board. Fall precautions * #history of Parkinson's Disease: on sinemet #Hypertension: on amlodipine and metoprolol DVT prophylaxis: on heparin Inpatient E&M: [id number] [facility] Hosp L3
[2020-05-18 11:31] LABS: Bedside Glucose 166 mg/dL (70-110)
--- NOTE | 2020-05-18 11:48 | US_ITS ---
INDICATION: swollen right testicle EXAMINATION: An oral and US Scrotum (Contents) TECHNIQUE: Realtime ultrasound of the testicles was performed with grayscale, Color Doppler and spectral Doppler analysis. COMPARISON: None. FINDINGS: RIGHT: TESTIS: Measures 4 x 4 0.2 x 2.5 cm. Normal in size and echotexture, without focal lesion. There is scrotal wall thickening measuring 11 mm in diameter. There is echogenic fat within the right inguinal canal consistent with hernia. No bowel seen. COLOR DOPPLER: Normal arterial flow present in the testicle with monophasic waveforms. EPIDIDYMIS: Normal in size and echotexture, with a small 5 mm epididymal head cyst. [Normal color Doppler flow pattern in the epididymis. HYDROCELE: Small hydrocele. VARICOCELE: None. LEFT: TESTIS: Measures 4.5 x 3.6 x 3.1 cm. Normal in size and echotexture, without focal lesion. There is scrotal wall thickening measuring 9 mm in diameter. COLOR DOPPLER: Normal arterial flow present in the testicle with monophasic waveforms. Increased vascularity. EPIDIDYMIS: Normal in size and echotexture, without focal lesion. Increased vascularity. HYDROCELE: Moderately sized complex hydrocele.. VARICOCELE: Yes. US/Testicular with Arterial Flow IMPRESSION: Fat-containing right inguinal hernia. Moderate left and small right hydroceles. Varicocele on the left. Possible left epididymoorchitis. Correlate clinically. Scrotal wall edema. Electronically Signed: Joaquin Ortiz MD at 16:22 EDT Tel , Service support ,
[2020-05-18] MEDS: Insulin Lispro 100 UNIT/ML INSULN.PEN SC (13:08)
[2020-05-18 14:00] VITALS: BP 123/53; PULSE 68; RESP 18; TEMP 37.2; O2SAT 97
[2020-05-18 16:40] LABS: Bedside Glucose 134 mg/dL (70-110)
--- NOTE | 2020-05-18 17:28 | CON.PCM_ITS ---
Problem List (1) Scrotal swelling Status: Acute Reason for Consult Date of Consultation: 05/18/20 Reason for Consultation: scrotal swelling History of Present Illness: The patient is a 74 year old M admitted for failure of outpatient treatment of acute cystitis. He reports that he has been having dysuria, hematuria, increased urgency with urge incontinence, increased nocturia. He reports that he has his prostate checked annually by his primary care doctor and his PSA has always been normal. He has never seen urology before. He has had 2 or 3 urinary tract infections in the past. He normally voids with a good stream a pproximately 5 times during the day with no nocturia. He normally does not have urinary incontinence. About 5 days ago he began to develop dysuria with hematuria. It was at this time that he also began to notice right-sided scrotal swelling. The scrotum is tender and he does report that he accidentally sat on his scrotum a few days ago just prior to coming in and it was painful. Past Medical History Past Medical History (Chronic Problems): Chronic Problems CKD (chronic kidney disease) (Chronic) Parkinson disease (Chronic) Diabetes (Chronic) Allergies No Known Allergies Allergy (Verified 05/17/20 11:32) Home Medications: Ambulatory Orders Medication Instructions Recorded Allopurinol [Zyloprim] 100 mg PO BIDCM 12/04/17 Amlodipine Besylate [Norvasc] 10 mg PO DAILY 12/04/17 Aspirin E.C. [Ecotrin] 81 mg PO DAILY@0800 12/04/17 Carbidopa/Levodopa [Carbidopa-Levo 2 each PO TID 12/04/17 25-100 mg Odt] Docusate Sodium [Colace] 200 mg PO DAILY 12/04/17 Esomeprazole Magnesium 40 mg PO DAILY 12/04/17 Fluticasone 110 Mcg [Flovent 110 1 puff INHALATION BID 12/04/17 Mcg] Metoprolol Succinate [Toprol Xl] 50 mg PO DAILY 12/04/17 Multivit-Min/Folic/Vit K/Lycop 1 each PO DAILY 12/04/17 [One-A-Day Men's 50 Plus Tablet] [place]-3 Fatty Acids/Fish Oil [Fish 1 each PO DAILY 12/04/17 Oil 1,000 mg Capsule] Brimonidine Tartrate 0.2% 1 drop OPHTHALMIC BID 12/05/17 [Brimonidine 0.2% 5Ml Bottle] Furosemide 40 mg PO DAILY 04/09/19 Garlic 500 mg PO DAILY 04/09/19 Surgical History: Surgical History (Last Reviewed 05/18/20 @ 17:[address] Kmi Glover MD) History of left heart catheterization Onset Date: 11/22/19 Z98.890 Surgical History: - - CABG, ablation for Afib Psychiatric History: No pertinent psych hx Lives: Spouse/ Significant Other Smoking Status: Former smoker Tobacco Use: Non-smoker Alcohol: None Drugs: None - *Family History Maternal History Items: Heart Disease, Hypertension Paternal History Items: - - History was taken from patient's daughter who is unsure of paternal medical history. She thinks that patient's father had colon cancer. Review of Systems Constitutional: Denies: Anorexia, Chills, Fever Eyes: Denies: Vision Change HEENT: Denies: Visual Changes Cardiovascular: Denies: Chest Pain, Chest Pressure, Chest Tightness Respiratory: Denies: Cough, Shortness of Breath Gastrointestinal: Denies: Abdominal Pain, Constipation, Nausea, Vomiting Genitourinary: Reports: Dysuria, Frequency, Hematuria, Incontinence, Nocturia, Urgency. Denies: Hesitancy, Retention Musculoskeletal: Denies: Muscle pain Skin: Reports: Skin Changes - scrotal skin swelling Neurological: Reports: Balance problems, Incoordination, - - secondary to Parkinson's disease Endocrine: Denies: Change in Body Habitus Patient Problems: Active and Suspected Problems UTI (urinary tract infection) (Acute) Weakness (Acute) CHIKA (acute kidney injury) (Acute) - Physical Exam Vitals/I&O's: Vital Signs Temp Pulse Resp BP Pulse Ox 98.6 F 73 18 120/52 L 92 05/18/20 08:02 05/18/20 08:08 05/18/20 08:02 05/18/20 08:08 05/18/20 08:02 Oxygen Flow Rate (L/min) 2 Oxygen Delivery Method Room Air Weight: 95.3 kg Body Mass Index (BMI) 39.6 Intake and Output for Last 24 Hours 05/16/20 05/17/20 05/18/20 23:59 23:59 23:59 Intake Total 1050 / 1050 1165 / 1165 Balance 1050 / 1050 1165 / 1165 General: Alert, Oriented x3, Cooperative, No apparent distress HEENT: Atraumatic, Normocephalic Oral: Moist Mucosa Neck: Supple, Trachea Midline Lungs: Normal air movement Cardiovascular: Regular rate Abdomen: Soft, Non Tender, Obese Extremities: No Calf Tenderness Skin: No rashes, No breakdown, - - Scrotal examination, the left testis is normal, the right testis is mildly tender with edema of the skin and erythema consistent with cellulitis. Testis is not high riding. Uncircumcised male skin retracts easily without foreskin abnormalities. Urethral meatus appears normal. Musculoskeletal: No Muscle Wasting Neurological: Cranial nerves II-XII grossly intact, Neuro grossly intact Psych/Mental Status: Normal Affect Comment: U/S shows flow on testicles with B hydroceles, right inguinal hernia Microbiology Past 72 Hours 05/17/20 12:10 Mucosa - Nose SARS-CoV-2 Antigen (Rapid) - Final 05/17/20 12:10 Urine, Clean Catch Urine Culture - Preliminary Gram negative ramandeep Laboratory Results 05/17/20 21:35: POC Glucose 110 05/18/20 05:55: WBC 10.1, RBC 3.39 L, Hgb 9.8 L, Hct 31.6 L, MCV 93.2, MCH 28.9, MCHC 31.0 L, RDW Std Deviation 55.8 H, RDW Coeff of Sammi 16.5 H, Plt Count 100 L, MPV 12.6 H, Immature Gran % (Auto) 0.400, Neut % (Auto) 77.4 H, Lymph % (Auto) 13.3 L, [place] % (Auto) 7.8, Eos % (Auto) 0.9, Baso % (Auto) 0.2, Absolute Neuts (auto) 7.8 H, Absolute Lymphs (auto) 1.34, Nucleated RBC % 0 05/18/20 05:55: Sodium 141, Potassium 3.3 L, Chloride 106, Carbon Dioxide 28.0, Anion Gap 7, BUN 33 H, Creatinine 1.88 H, Estim Creat Clear Calc 24.73, Est GFR (MDRD) Af Amer 45 L, Est GFR (MDRD) Non-Af 37 L, BUN/Creatinine Ratio 17.6, Glucose 98, Calcium 8.7, Total Bilirubin 1.10 H, AST 22, ALT 8 L, Alkaline Phosphatase 120 H, Total Protein 6.1 L, Albumin 2.6 L, Globulin 3.5, Albumin/Globulin Ratio 0.7 L 05/18/20 06:27: POC Glucose 118 H 05/18/20 11:25: POC Glucose 166 H 05/18/20 16:16: POC Glucose 134 H Current Medications Acetaminophen (Acetaminophen 325 Mg Tablet) 650 mg PO Q6H PRN PRN PRN Reason: Pain Score 1-10/Temp > 100.7 F Allopurinol (Allopurinol 100 Mg Tablet) 100 mg PO BIDCM [facility] Last Admin: 05/18/20 08:07 Dose: 100 mg Documented by: Amlodipine Besylate (Amlodipine 10 Mg Tablet) 10 mg PO DAILY [facility] Last Admin: 05/18/20 08:08 Dose: 10 mg Documented by: Aspirin (Aspirin E.C. 81 Mg Tablet) 81 mg PO DAILY@0800 [facility] Last Admin: 05/18/20 08:07 Dose: 81 mg Documented by: Brimonidine Tartrate (Brimonidine 0.2% 5ml Bottle) 1 drp EACH EYE BID [facility] Last Admin: 05/18/20 08:07 Dose: 1 drp Documented by: Budesonide (Budesonide Respules 0.5 Mg/2 Ml Ampul.Neb.) 0.5 mg INHALATION Q12H.RT [facility] Last Admin: 05/18/20 07:17 Dose: 0.5 mg Documented by: Calamine/Phenol (Menthol/Lanolin/Calamine/Znox 113 Gm Tube) 1 applic TOPICAL BID [facility]; Protocol Last Admin: 05/18/20 08:07 Dose: 1 applic Documented by: Carbidopa/Levodopa (Carbidopa/Levodopa 25/100 Tablet) 2 tablet PO TIDAC [facility] Last Admin: 05/18/20 13:07 Dose: 2 tablet Documented by: Dextrose (Dextrose 50%-Water 25 Gm/50 Ml Disp.Syrin) 0 gm IV X1 PRN; Protocol PRN Reason: Hypoglycemia Docusate Sodium (Docusate Sodium 100 Mg Capsule) 200 mg PO DAILY [facility] Last Admin: 05/18/20 08:08 Dose: 200 mg Documented by: Glucagon (Glucagon 1 Mg/Ml Syringe) 1 mg IM .X1 PRN PRN Reason: Hypoglycemia Heparin Sodium (Porcine) (Heparin Injection (Vial) 5,000 Unit/Ml Vial) 5,000 unit SC Q8 [facility] Last Admin: 05/18/20 13:09 Dose: 5,000 unit Documented by: Ceftriaxone Sodium (Rocephin) 1 gm in 50 mls @ 100 mls/hr IV Q24 [facility] Last Infusion: 05/18/20 10:43 Dose: Infused Documented by: Insulin Human Lispro (Insulin Lispro 100 Unit/Ml Insuln.Pen) 0 unit SC ACHS [facility]; Protocol Last Admin: 05/18/20 13:08 Dose: 1 u Documented by: Magnesium Hydroxide (Magnesium Hydroxide 30 Ml Udc) 30 ml PO DAILY PRN PRN PRN Reason: Constipation Metoprolol Succinate (Metoprolol(Xl)Succ 50 Mg Tablet) 50 mg PO DAILY [facility] Last Admin: 05/18/20 08:08 Dose: 50 mg Documented by: Ondansetron HCl (Ondansetron 4 Mg/2 Ml Vial) 4 mg IV Q8H PRN PRN PRN Reason: NAUSEA/VOMITING Pantoprazole Sodium (Pantoprazole Sodium 40 Mg Tablet) 40 mg PO DAILY [facility] Last Admin: 05/18/20 08:08 Dose: 40 mg Documented by: Psyllium Hydrophilic Mucilloid (Psyllium 1 Packet) 1 packet PO DAILY PRN PRN PRN Reason: Constipation Sodium Chloride (0.9% Saline Lock 10 Ml Syringe) 10 - 40 ml IV UD PRN PRN Reason: SALINE FLUSH Last Admin: 05/18/20 10:13 Dose: 10 ml Documented by: Assessment/Plan All Active Problems UTI (urinary tract infection) (Acute) Scrotal swelling (Acute) Weakness (Acute) Dysuria (Acute) CHIKA (acute kidney injury) (Acute) Heart failure (Acute) NSTEMI (non-ST elevated myocardial infarction) (Acute) Aspiration pneumonia (Acute) elevated scrotum with scrotal support and towel while sitting or in bed post void residual, if greater than 250cc, reyes catheter to straight drain continue antibiotics will need full urologic evaluation as outpatient with rectal exam and evaluation cystitis with
--- NOTE | 2020-05-18 18:41 | NURSING ---
PT INCONTINENT OF MODERATE AMOUNT URINE. BLADDER SCAN = 0.
[2020-05-18 18:53] VITALS: PULSE 64; RESP 17
[2020-05-18 21:17] VITALS: BP 126/64; PULSE 67; RESP 18; TEMP 37.2; O2SAT 94
[2020-05-18 21:41] LABS: Bedside Glucose 112 mg/dL (70-110)
[2020-05-19] VITALS (8 sets, daily range): BP systolic 133–145; BP diastolic 61–81; PULSE 74–80; RESP 18; TEMP 36.7–37.2; O2SAT 87–95
[2020-05-19 05:23] LABS: Absolute Lymphocyte Count 1.08 X10^3/uL (0.83-4.51); Absolute Neutrophil Count 7.1 X10^3/uL (2.0-7.7); Basophil# 0.03 X10^3/uL; Basophil% 0.3 % (0-1); Eosinophil# 0.09 X10^3/uL; Hematocrit 33.9 % (40-54); Hemoglobin 10.6 g/dL (13.0-16.5); Lymphocyte # 1.08 X10^3/ul (4.0); Mean Corp Hgb Conc 31.3 g/dL (32-36); Mean Corpuscular Hgb 28.9 pg (27.0-32.0); Mean Corpuscular Volume 92.4 fL (80-94); Mean Platelet Vol. 12.1 fl (6.2-12.0); Monocyte# 0.72 X10^3/uL; NRBC Flagged by Analyzer 0 % (0-5); Neutrophil # 7.05 X10^3/uL (2.7-7.7); Neutrophil % 78.3 % (47-70); Platelet Count 129 K/mm3 (150-450); RBC Distribution Width SD 54.8 fl (35.1-43.9); Red Blood Count 3.67 M/mm3 (4.6-6.2)
[2020-05-19 05:41] LABS: Anion Gap 5 (5-15); BUN 29 mg/dL (7-18); BUN/Creat Ratio 15.9 RATIO (10-20); Calcium,Total 8.9 mg/dL (8.5-10.1); Chloride 106 mmol/L (98-107); Creatinine, Serum 1.82 mg/dL (0.70-1.30); EST Glomerular Filtration Rate 39 mL/min (>60); Est Glom Filt Rate - Afr Amer 47 mL/min (>60); Estimated Creatinine Clearance 25.54 ml/min; Glucose 121 mg/dL (74-106); Potassium 3.5 mmol/L (3.5-5.1); Sodium Level 136 mmol/L (136-145)
[2020-05-19] MEDS: Heparin Injection (Vial) 5,000 UNIT/ML VIAL 5000 UNIT SC ×2 (05:48→15:03)
[2020-05-19] MEDS: Carbidopa/Levodopa 25/100 Tablet PO ×2 (05:48→12:39)
[2020-05-19 06:35] LABS: Bedside Glucose 122 mg/dL (70-110)
[2020-05-19] MEDS: Budesonide Respules 0.5 MG/2 ML AMPUL.NEB. INHALATION (07:20)
--- NOTE | 2020-05-19 07:35 | PCM.PN.HOSP ---
Patient Problems: Active and Suspected Problems UTI (urinary tract infection) (Acute) Scrotal swelling (Acute) Weakness (Acute) CHIKA (acute kidney injury) (Acute) Vitals/I&O's: Vital Signs Temp Pulse Resp BP Pulse Ox 98.1 F 74 18 134/61 H 92 05/19/20 02:11 05/19/20 02:11 05/19/20 02:11 05/19/20 02:11 05/19/20 02:11 Oxygen Flow Rate (L/min) 2 Oxygen Delivery Method Nasal Cannula Weight: 212 lb 1.355 oz Body Mass Index (BMI) 39.6 Intake and Output for Last 24 Hours 05/17/20 05/18/20 05/19/20 23:59 23:59 23:59 Intake Total 1050 / 1050 2585 / 2585 200 / 200 Balance 1050 / 1050 2585 / 2585 200 / 200 Microbiology Past 72 Hours 05/17/20 12:10 Mucosa - Nose SARS-CoV-2 Antigen (Rapid) - Final 05/17/20 12:10 Urine, Clean Catch Urine Culture - Preliminary Gram negative ramandeep Laboratory Results 05/18/20 11:25: POC Glucose 166 H 05/18/20 16:16: POC Glucose 134 H 05/18/20 21:30: POC Glucose 112 H 05/19/20 05:12: WBC 9.0, RBC 3.67 L, Hgb 10.6 L, Hct 33.9 L, MCV 92.4, MCH 28.9, MCHC 31.3 L, RDW Std Deviation 54.8 H, RDW Coeff of Sammi 16.0 H, Plt Count 129 L, MPV 12.1 H, Immature Gran % (Auto) 0.400, Neut % (Auto) 78.3 H, Lymph % (Auto) 12.0 L, [place] % (Auto) 8.0, Eos % (Auto) 1.0, Baso % (Auto) 0.3, Absolute Neuts (auto) 7.1, Absolute Lymphs (auto) 1.08, Nucleated RBC % 0 05/19/20 05:12: Sodium 136, Potassium 3.5, Chloride 106, Carbon Dioxide 25.0, Anion Gap 5, BUN 29 H, Creatinine 1.82 H, Estim Creat Clear Calc 25.54, Est GFR (MDRD) Af Amer 47 L, Est GFR (MDRD) Non-Af 39 L, BUN/Creatinine Ratio 15.9, Glucose 121 H, Calcium 8.9 05/19/20 06:25: POC Glucose 122 H Current Medications Acetaminophen (Acetaminophen 325 Mg Tablet) 650 mg PO Q6H PRN PRN PRN Reason: Pain Score 1-10/Temp > 100.7 F Allopurinol (Allopurinol 100 Mg Tablet) 100 mg PO BIDCM [facility] Last Admin: 05/18/20 17:30 Dose: 100 mg Documented by: Amlodipine Besylate (Amlodipine 10 Mg Tablet) 10 mg PO DAILY [facility] Last Admin: 05/18/20 08:08 Dose: 10 mg Documented by: Aspirin (Aspirin E.C. 81 Mg Tablet) 81 mg PO DAILY@0800 [facility] Last Admin: 05/18/20 08:07 Dose: 81 mg Documented by: Brimonidine Tartrate (Brimonidine 0.2% 5ml Bottle) 1 drp EACH EYE BID [facility] Last Admin: 05/18/20 21:22 Dose: 1 drp Documented by: Budesonide (Budesonide Respules 0.5 Mg/2 Ml Ampul.Neb.) 0.5 mg INHALATION Q12H.RT [facility] Last Admin: 05/19/20 07:20 Dose: 0.5 mg Documented by: Calamine/Phenol (Menthol/Lanolin/Calamine/Znox 113 Gm Tube) 1 applic TOPICAL BID [facility]; Protocol Last Admin: 05/18/20 21:23 Dose: 1 applic Documented by: Carbidopa/Levodopa (Carbidopa/Levodopa 25/100 Tablet) 2 tablet PO TIDAC [facility] Last Admin: 05/19/20 05:48 Dose: 2 tablet Documented by: Dextrose (Dextrose 50%-Water 25 Gm/50 Ml Disp.Syrin) 0 gm IV X1 PRN; Protocol PRN Reason: Hypoglycemia Docusate Sodium (Docusate Sodium 100 Mg Capsule) 200 mg PO DAILY [facility] Last Admin: 05/18/20 08:08 Dose: 200 mg Documented by: Glucagon (Glucagon 1 Mg/Ml Syringe) 1 mg IM .X1 PRN PRN Reason: Hypoglycemia Heparin Sodium (Porcine) (Heparin Injection (Vial) 5,000 Unit/Ml Vial) 5,000 unit SC Q8 [facility] Last Admin: 05/19/20 05:48 Dose: 5,000 unit Documented by: Ceftriaxone Sodium (Rocephin) 1 gm in 50 mls @ 100 mls/hr IV Q24 [facility] Last Infusion: 05/18/20 10:43 Dose: Infused Documented by: Insulin Human Lispro (Insulin Lispro 100 Unit/Ml Insuln.Pen) 0 unit SC ACHS [facility]; Protocol Last Admin: 05/19/20 06:25 Dose: Not Given Documented by: Magnesium Hydroxide (Magnesium Hydroxide 30 Ml Udc) 30 ml PO DAILY PRN PRN PRN Reason: Constipation Metoprolol Succinate (Metoprolol(Xl)Succ 50 Mg Tablet) 50 mg PO DAILY [facility] Last Admin: 05/18/20 08:08 Dose: 50 mg Documented by: Ondansetron HCl (Ondansetron 4 Mg/2 Ml Vial) 4 mg IV Q8H PRN PRN PRN Reason: NAUSEA/VOMITING Pantoprazole Sodium (Pantoprazole Sodium 40 Mg Tablet) 40 mg PO DAILY [facility] Last Admin: 05/18/20 08:08 Dose: 40 mg Documented by: Psyllium Hydrophilic Mucilloid (Psyllium 1 Packet) 1 packet PO DAILY PRN PRN PRN Reason: Constipation Sodium Chloride (0.9% Saline Lock 10 Ml Syringe) 10 - 40 ml IV UD PRN PRN Reason: SALINE FLUSH Last Admin: 05/18/20 21:21 Dose: 10 ml Documented by: Medical Necessity - Tobacco Use Smoking Status: Former smoker Tobacco Use: Non-smoker Assessment/Plan All Active Problems UTI (urinary tract infection) (Acute) Scrotal swelling (Acute) Weakness (Acute) Dysuria (Acute) CHIKA (acute kidney injury) (Acute) Heart failure (Acute) NSTEMI (non-ST elevated myocardial infarction) (Acute) Aspiration pneumonia (Acute)
--- NOTE | 2020-05-19 08:52 | PN_ITS ---
Physical Exam Subjective: The patient is sitting up in his chair eating breakfast. Feeling much better today. With the scrotum elevated, the swelling has significantly decreased and he reports that the pain is significantly improved as well. He reports that his bladder scan was good yesterday and he is voiding to completion. He is looking forward to going home. He is aware that he will follow-up with Dr. Carlson in the outpatient setting. - Physical Exam Vital Signs Temp 98.1 F 05/19/20 02:11 Pulse 80 05/19/20 07:20 Resp 18 05/19/20 07:20 BP 134/61 H 05/19/20 02:11 Pulse Ox 87 05/19/20 07:20 Intake & Output 05/17/20 05/18/20 05/19/20 23:59 23:59 23:59 Intake Total 1050 / 1050 2585 / 2585 200 / 200 Balance 1050 / 1050 2585 / 2585 200 / 200 Weight: 95.164 kg 95.3 kg 96.2 kg Intake: Oral 500 / 500 1570 / 1570 200 / 200 Intake, IV Amount 550 / 550 1015 / 1015 0.9% Normal Saline 1,000 ML @ 965 / 965 100 mls/hr IV .Q10H [facility] Rx#: [id number] 0.9% Normal Saline 500 ML @ 999 500 / 500 mls/hr IV .Q31M [facility] Rx#: [id number] Rocephin 1 gm In 50 ml @ 100 50 / 50 mls/hr IV Q24 [facility] Rx#:[id number] Rocephin 1 gm In 50 ml @ 100 50 / 50 mls/hr IV X1 [facility] Rx#:[id number] Other: Number of Voids 6 Number of times incontinent 3 Incontinent Amount Moderate Moderate Number of times incontinent 3 Urine #2 Number of Bowel Movements 2 1 General: Alert, Oriented x3, Cooperative, No apparent distress HEENT: Atraumatic, Normocephalic Oral: Moist Mucosa Neck: Supple, Trachea Midline Lungs: Normal air movement Cardiovascular: Regular rate Abdomen: Soft, Non Tender, Non-Distended Rectal: Exam deferred Testicle: Right No masses, Right Non-tender, Right Tender - Significant decrease, nontender on exam today, Right Swollen - Significant decrease in scrotal edema, Right Hydrocele - small, Left No masses, Left Non-tender, Left Swollen, Left Hydrocele Scrotum: No rash, Mild edema Penis: Uncircumcised Groin: Reducible hernia Skin: No rashes, No breakdown Musculoskeletal: No Muscle Wasting Neurological: Cranial nerves II-XII grossly intact, Neuro grossly intact Psych/Mental Status: Normal Affect Comment: PVR less than 60 cc Microbiology Past 72 Hours 05/17/20 12:10 Urine Culture - Final Urine, Clean Catch Gram negative ramandeep 05/17/20 12:10 SARS-CoV-2 Antigen (Rapid) - Final Mucosa - Nose Laboratory Tests Past 24 Hrs 05/19/20 05/19/20 05:12 05:12 WBC 9.0 RBC 3.67 L Hgb 10.6 L Hct 33.9 L MCV 92.4 MCH 28.9 MCHC 31.3 L RDW Std Deviation 54.8 H RDW Coeff of Sammi 16.0 H Plt Count 129 L MPV 12.1 H Immature Gran % (Auto) 0.400 Neut % (Auto) 78.3 H Lymph % (Auto) 12.0 L [place] % (Auto) 8.0 Eos % (Auto) 1.0 Baso % (Auto) 0.3 Absolute Neuts (auto) 7.1 Absolute Lymphs (auto) 1.08 Nucleated RBC % 0 Sodium 136 Potassium 3.5 Chloride 106 Carbon Dioxide 25.0 Anion Gap 5 BUN 29 H Creatinine 1.82 H Estim Creat Clear Calc 25.54 Est GFR (MDRD) Af Amer 47 L Est GFR (MDRD) Non-Af 39 L BUN/Creatinine Ratio 15.9 Glucose 121 H Calcium 8.9 Medical Necessity - Tobacco Use Smoking Status: Former smoker Tobacco Use: Non-smoker Assessment/Plan All Active Problems UTI (urinary tract infection) (Acute) Scrotal swelling (Acute) Weakness (Acute) Dysuria (Acute) CHIKA (acute kidney injury) (Acute) Heart failure (Acute) NSTEMI (non-ST elevated myocardial infarction) (Acute) Aspiration pneumonia (Acute) Continue scrotal elevation at home Continue antibiotic management for cystitis/cellulitis Follow-up with Dr. Carlson in the outpatient setting
[2020-05-19] MEDS: Ceftriaxone 1 GM/50 ML BAG IV (09:35)
[2020-05-19] MEDS: 0.9% Saline Lock 10 ML Syringe IV (09:36)
[2020-05-19] MEDS: Aspirin E.C. 81 MG Tablet PO (09:39)
[2020-05-19] MEDS: Allopurinol 100 MG Tablet PO (09:39)
[2020-05-19] MEDS: Menthol/Lanolin/Calamine/Znox 113 GM Tube 1 APPLIC TOPICAL (09:39)
[2020-05-19] MEDS: Docusate Sodium 100 MG Capsule 200 MG PO (09:39)
[2020-05-19] MEDS: BRIMONIDINE 0.2% 5ML BOTTLE 1 DRP EACH EYE (09:39)
[2020-05-19] MEDS: Pantoprazole Sodium 40 MG Tablet PO (09:40)
[2020-05-19] MEDS: amLODIPine 10 MG Tablet PO (09:40)
[2020-05-19] MEDS: Metoprolol(XL)Succ 50 MG Tablet PO (09:40)
--- NOTE | 2020-05-19 10:14 | PCM.DC ---
- Discharge Diagnoses Current Active Problems: Current Active and Chronic Problems UTI (urinary tract infection) (Acute) Scrotal swelling (Acute) Weakness (Acute) CHIKA (acute kidney injury) (Acute) CKD (chronic kidney disease) (Chronic) Parkinson disease (Chronic) Diabetes (Chronic) You will use the following diet at home:: Cardiac Your food should be the consistency of: Regular Your liquids should be the consistency of: Regular/Thin Discharge Activity: Return to Normal Activity Weight Bearing Status: Weight bearing as tolerated Call your doctor if you observe: Fever of 101 or Higher, Inability to urinate, Shortness of breath, Swelling in the ankles Instructions: ED Bladder Infection, Male (Adult) Allergies/Adverse Reactions: Allergies No Known Allergies Allergy (Verified 05/17/20 11:32) Medications to take at Discharge Allopurinol [Zyloprim] 100 mg PO BIDCM 12/04/17 Amlodipine Besylate [Norvasc] 10 mg PO DAILY 12/04/17 Aspirin E.C. [Ecotrin] 81 mg PO DAILY@0800 12/04/17 Carbidopa/Levodopa [Carbidopa-Levo 25-100 mg Odt] 2 each PO TID 12/04/17 Docusate Sodium [Colace] 200 mg PO DAILY 12/04/17 Esomeprazole Magnesium 40 mg PO DAILY 12/04/17 Fluticasone 110 Mcg [Flovent 110 Mcg] 1 puff INHALATION BID 12/04/17 Metoprolol Succinate [Toprol Xl] 50 mg PO DAILY 12/04/17 Multivit-Min/Folic/Vit K/Lycop [One-A-Day Men's 50 Plus Tablet] 1 each PO DAILY 12/04/17 [place]-3 Fatty Acids/Fish Oil [Fish Oil 1,000 mg Capsule] 1 each PO DAILY 12/04/17 Brimonidine Tartrate 0.2% [Brimonidine 0.2% 5Ml Bottle] 1 drop OPHTHALMIC BID 12/05/17 Furosemide 40 mg PO DAILY 04/09/19 Garlic 500 mg PO DAILY 04/09/19 Cefdinir 300 mg PO BID 5 Days #10 capsule 05/19/20 The following prescriptions were given: Cefdinir 300 mg PO BID 5 Days #10 capsule Transmission Status: Pending to [facility] Primary Care Physician: Aleksandr Decker MD [Primary Care Provider] - Please follow up with your Primary Care Physician in: 1-2 weeks Test Results: Test results from this visit will be discussed in further detail at your follow-up appointment, if applicable. Please Follow Up With: Gamaliel Carlson MD When: 2-3 weeks Proposed Discharge Date: 05/19/20
--- NOTE | 2020-05-19 10:20 | DS.PCM_ITS ---
Discharge Date and Diagnosis - Problem List Patient Problems: Active and Suspected Problems UTI (urinary tract infection) (Acute) Scrotal swelling (Acute) Weakness (Acute) CHIKA (acute kidney injury) (Acute) Date of Admission: 05/17/20 Date of Discharge: 05/19/20 - Primary Discharge Diagnosis Acute Problems: Active Problems UTI (urinary tract infection) (Acute) Scrotal swelling (Acute) Weakness (Acute) CHIAK (acute kidney injury) (Acute) - Secondary Discharge Diagnosis Chronic Problems: Chronic Problems CKD (chronic kidney disease) (Chronic) Parkinson disease (Chronic) Diabetes (Chronic) Hospital Course and Treatment Imaging Results: Diagnostic Data Chest X-Ray 05/17/20 11:50 IMPRESSION: No definite acute or significant abnormality seen. Electronically Signed: Garrick Fong MD at 12:47 EDT , Service support , Testicular Ultrasound 05/18/20 11:48 IMPRESSION: Fat-containing right inguinal hernia. Moderate left and small right hydroceles. Varicocele on the left. Possible left epididymoorchitis. Correlate clinically. Scrotal wall edema. Electronically Signed: Joaquin Ortiz MD at 16:22 EDT Tel , Service support , urology- Dr Glover Operations: None Procedures: None Summary of Care Provided: The patient is a 74 year old M with a past medical history as outlined was admitted through the ED on 05/17/2020 with a complaint of dysuria and generalized malaise. He also had generalized weakness and fever for 3 days prior to admission. He has been treated for UTI on outpatient basis with Bactrim but did not improve so he came into the ED. Urinalysis showed evidence of UTI. Creatinine was 2.27 with a baseline creatinine of 1.5. He was admitted and managed for UTI and CHIKA on CKD. Was started on IV ceftriaxone. Also hydrated with IV fluids and creatinine trended down to 1.82. Hospital's course was complicated by complaints of a right swollen painful testicle which had been going on for about 2 days. Urology was therefore consulted and ultrasound of the testicles showed fat-containing right inguinal hernia as well as moderate le ft and small right hydroceles with a varicocele on the left and possible left epididymoorchitis with scrotal wall edema. Urology recommended that he keeps the scrotum elevated and to follow-up with Dr. Desai on outpatient basis. Urine culture grew gram-negative rods speciation of which was pending at time of discharge. He remained stable and was discharged home on 05/19/2020 with a prescription for p.o. cefdinir 300 mg twice daily for 5 days. He is to follow- up with his primary care doctor and follow-up with urology within 1 week. Patient seen and examined prior to discharge. He had no complaints. Review of systems otherwise negative. Labs and vitals reviewed. Home medication reviewed and reconciled. O/E: Vital Signs Temp Pulse Resp BP Pulse Ox 98.2 F 75 18 145/81 H 93 05/19/20 14:00 05/19/20 14:00 05/19/20 14:00 05/19/20 14:00 05/19/20 15:00 General: Alert, Oriented x3, Cooperative, No apparent distress HEENT: Atraumatic, PERRLA, EOMI, Normocephalic Oral: Dry Mucosa Neck: Supple, No JVD, Negative Carotid Bruits Lungs: Clear to auscultation, Normal air movement, No rhonchi, No wheeze Cardiovascular: Regular rate, Regular Rhythm, Normal S1, Normal S2, No murmurs Abdomen: Bowel Sounds Present, Soft, Non Tender, Non-Distended, No Hepato- splenomegaly, - - right testicle swelling and tenderness is much better Extremities: No clubbing, No cyanosis, No edema, Capillary Refill Less than 3 Seconds Skin: No rashes, No breakdown Musculoskeletal: No Tenderness to Palpation of Joints or Extremities Lymphatic: No Cervical, Supraclavicular, or Inguinal Adenopathy Neurological: Cranial nerves II-XII grossly intact, Neuro grossly intact, Motor Exam 5/5 strength throughout Psych/Mental Status: Normal Affect, Appropriate, Alert and oriented to time, place, person, mood and affect Plan is for discharge home today. Patient Problems: Active and Suspected Problems UTI (urinary tract infection) (Acute) Scrotal swelling (Acute) Weakness (Acute) CHIKA (acute kidney injury) (Acute) - Physical Exam Vitals/I&O's: Vital Signs Temp Pulse Resp BP Pulse Ox 98.9 F 75 18 133/65 H 95 05/19/20 08:15 05/19/20 09:40 05/19/20 08:15 05/19/20 09:40 05/19/20 08:15 Oxygen Flow Rate (L/min) 2 Oxygen Delivery Method Nasal Cannula Weight: 212 lb 1.355 oz Body Mass Index (BMI) 39.6 Intake and Output for Last 24 Hours 05/17/20 05/18/20 05/19/20 23:59 23:59 23:59 Intake Total 1050 / 1050 2585 / 2585 200 / 200 Balance 1050 / 1050 2585 / 2585 200 / 200 Microbiology Past 72 Hours 05/17/20 12:10 Urine, Clean Catch Urine Culture - Final Gram negative ramandeep 05/17/20 12:10 Mucosa - Nose SARS-CoV-2 Antigen (Rapid) - Final Laboratory Results 05/18/20 11:25: POC Glucose 166 H 05/18/20 16:16: POC Glucose 134 H 05/18/20 21:30: POC Glucose 112 H 05/19/20 05:12: WBC 9.0, RBC 3.67 L, Hgb 10.6 L, Hct 33.9 L, MCV 92.4, MCH 28.9, MCHC 31.3 L, RDW Std Deviation 54.8 H, RDW Coeff of Sammi 16.0 H, Plt Count 129 L, MPV 12.1 H, Immature Gran % (Auto) 0.400, Neut % (Auto) 78.3 H, Lymph % (Auto) 12.0 L, [place] % (Auto) 8.0, Eos % (Auto) 1.0, Baso % (Auto) 0.3, Absolute Neuts (auto) 7.1, Absolute Lymphs (auto) 1.08, Nucleated RBC % 0 05/19/20 05:12: Sodium 136, Potassium 3.5, Chloride 106, Carbon Dioxide 25.0, Anion Gap 5, BUN 29 H, Creatinine 1.82 H, Estim Creat Clear Calc 25.54, Est GFR (MDRD) Af Amer 47 L, Est GFR (MDRD) Non-Af 39 L, BUN/Creatinine Ratio 15.9, Glucose 121 H, Calcium 8.9 05/19/20 06:25: POC Glucose 122 H Current Medications Acetaminophen (Acetaminophen 325 Mg Tablet) 650 mg PO Q6H PRN PRN PRN Reason: Pain Score 1-10/Temp > 100.7 F Allopurinol (Allopurinol 100 Mg Tablet) 100 mg PO BIDCM [facility] Last Admin: 05/19/20 09:39 Dose: 100 mg Documented by: Amlodipine Besylate (Amlodipine 10 Mg Tablet) 10 mg PO DAILY [facility] Last Admin: 05/19/20 09:40 Dose: 10 mg Documented by: Aspirin (Aspirin E.C. 81 Mg Tablet) 81 mg PO DAILY@0800 [facility] Last Admin: 05/19/20 09:39 Dose: 81 mg Documented by: Brimonidine Tartrate (Brimonidine 0.2% 5ml Bottle) 1 drp EACH EYE BID [facility] Last Admin: 05/19/20 09:39 Dose: 1 drp Documented by: Budesonide (Budesonide Respules 0.5 Mg/2 Ml Ampul.Neb.) 0.5 mg INHALATION Q12H.RT [facility] Last Admin: 05/19/20 07:20 Dose: 0.5 mg Documented by: Calamine/Phenol (Menthol/Lanolin/Calamine/Znox 113 Gm Tube) 1 applic TOPICAL BID [facility]; Protocol Last Admin: 05/19/20 09:39 Dose: 1 applic Documented by: Carbidopa/Levodopa (Carbidopa/Levodopa 25/100 Tablet) 2 tablet PO TIDAC [facility] Last Admin: 05/19/20 05:48 Dose: 2 tablet Documented by: Dextrose (Dextrose 50%-Water 25 Gm/50 Ml Disp.Syrin) 0 gm IV X1 PRN; Protocol PRN Reason: Hypoglycemia Docusate Sodium (Docusate Sodium 100 Mg Capsule) 200 mg PO DAILY [facility] Last Admin: 05/19/20 09:39 Dose: 200 mg Documented by: Glucagon (Glucagon 1 Mg/Ml Syringe) 1 mg IM .X1 PRN PRN Reason: Hypoglycemia Heparin Sodium (Porcine) (Heparin Injection (Vial) 5,000 Unit/Ml Vial) 5,000 unit SC Q8 [facility] Last Admin: 05/19/20 05:48 Dose: 5,000 unit Documented by: Ceftriaxone Sodium (Rocephin) 1 gm in 50 mls @ 100 mls/hr IV Q24 [facility] Last Admin: 05/19/20 09:35 Dose: 100 mls/hr Documented by: Insulin Human Lispro (Insulin Lispro 100 Unit/Ml Insuln.Pen) 0 unit SC ACHS [facility]; Protocol Last Admin: 05/19/20 06:25 Dose: Not Given Documented by: Magnesium Hydroxide (Magnesium Hydroxide 30 Ml Udc) 30 ml PO DAILY PRN PRN PRN Reason: Constipation Metoprolol Succinate (Metoprolol(Xl)Succ 50 Mg Tablet) 50 mg PO DAILY [facility] Last Admin: 05/19/20 09:40 Dose: 50 mg Documented by: Ondansetron HCl (Ondansetron 4 Mg/2 Ml Vial) 4 mg IV Q8H PRN PRN PRN Reason: NAUSEA/VOMITING Pantoprazole Sodium (Pantoprazole Sodium 40 Mg Tablet) 40 mg PO DAILY [facility] Last Admin: 05/19/20 09:40 Dose: 40 mg Documented by: Psyllium Hydrophilic Mucilloid (Psyllium 1 Packet) 1 packet PO DAILY PRN PRN PRN Reason: Constipation Sodium Chloride (0.9% Saline Lock 10 Ml Syringe) 10 - 40 ml IV UD PRN PRN Reason: SALINE FLUSH Last Admin: 05/19/20 09:36 Dose: 10 ml Documented by: Discharge Diet: Low fat/ Low Cholesterol Discharge Activity: Return to Normal Activity Weight Bearing Status: Weight bearing as tolerated Call your doctor if you observe: Fever of 101 or Higher, Inability to urinate, Shortness of breath, Swelling in the ankles Home Medications: Medications to take at Discharge Allopurinol [Zyloprim] 100 mg PO BIDCM 12/04/17 Amlodipine Besylate [Norvasc] 10 mg PO DAILY 12/04/17 Aspirin E.C. [Ecotrin] 81 mg PO DAILY@0800 12/04/17 Carbidopa/Levodopa [Carbidopa-Levo 25-100 mg Odt] 2 each PO TID 12/04/17 Docusate Sodium [Colace] 200 mg PO DAILY 12/04/17 Esomeprazole Magnesium 40 mg PO DAILY 12/04/17 Fluticasone 110 Mcg [Flovent 110 Mcg] 1 puff INHALATION BID 12/04/17 Metoprolol Succinate [Toprol Xl] 50 mg PO DAILY 12/04/17 Multivit-Min/Folic/Vit K/Lycop [One-A-Day Men's 50 Plus Tablet] 1 each PO DAILY 12/04/17 [place]-3 Fatty Acids/Fish Oil [Fish Oil 1,000 mg Capsule] 1 each PO DAILY 12/04/17 Brimonidine Tartrate 0.2% [Brimonidine 0.2% 5Ml Bottle] 1 drop OPHTHALMIC BID 12/05/17 Furosemide 40 mg PO DAILY 04/09/19 Garlic 500 mg PO DAILY 04/09/19 Cefdinir 300 mg PO BID 5 Days #10 capsule 05/19/20 Following Prescriptions Were Given to Patient: Cefdinir 300 mg PO BID 5 Days #10 capsule Transmission Status: Received by [facility] Primary Care Physician: Aleksandr Decker MD [Primary Care Provider] - Please follow up with your Primary Care Physician in: 1-2 weeks Please Follow Up With: Gamaliel Carlson MD When: 2-3 weeks Patient Instructions: ED Bladder Infection, Male (Adult) Disposition: Home Minutes spent on discharge:: 45 Patient Condition:: Stable Medical Necessity - Tobacco Use Smoking Status: Former smoker Tobacco Use: Non-smoker Meaningful Use Info Meaningful Use Diagnoses (Choose all that apply): None applicable Inpatient E&M: 05644 Disch Hosp
[2020-05-19 11:55] LABS: Bedside Glucose 134 mg/dL (70-110)
--- NOTE | 2020-05-19 14:31 | CASEMGMT ---
Pt screened with [facility] Palliative Screening Tool, pt did not meet criteria.
--- NOTE | 2020-05-20 13:07 | CASEMGMT ---
FER GALINDO Discharge Follow Up Phone Call: TANISHA: Man Strata: 3 Call Date: 05/20/20 Discharge Date: 05/19/20 Time of Call:1252 Duration: 8 min Admitting Dx:UTI/debility FER GALINDO completed follow up phone call after recent hospitalization. Pt was sleeping per and unavailable. states she is very upset that the pt was sent home this way. States she obtained rx without difficulty. States pt is urinating everywhere and unable to get off of couch. She states she knows that the pt declined therapy at home but he needs it. Made her aware that she could call PCP office and ask to be set up with C. She verbalizes understanding and will do so. She states pt mind has gone bonkers. She states this happens when he has a urinary infection. apologized to CM stating she is not well herself and this is overwhelming. States she knows pt would not want to go to SNF. Provided reassurance. Pt with no further questions or concerns at this time.
== END 2020-05-19 15:43 | disposition home or self-care (01) | DRG 683 ==
LOC: ED 12:33 → MS3 13:29
PROVIDERS: Admitting Provider Internal Medicine; Emergency Provider Emergency Medicine; Visit Provider Student in an Organized Health Care Education/Training Program
DX: N17.9 Acute kidney failure, unspecified (principal); N30.00 Acute cystitis without hematuria; I13.0 Hypertensive heart and chronic kidney disease with heart failure and stage 1 through stage 4 chronic kidney disease, or unspecified chronic kidney disease; N45.3 Epididymo-orchitis; E11.22 Type 2 diabetes mellitus with diabetic chronic kidney disease; N18.32 Chronic kidney disease, stage 3b; I50.9 Heart failure, unspecified; E86.0 Dehydration; E87.6 Hypokalemia; N39.41 Urge incontinence; R35.1 Nocturia; I86.1 Scrotal varices; N43.3 Hydrocele, unspecified; R53.81 Other malaise; Z20.822 Contact with and (suspected) exposure to COVID-19; I48.0 Paroxysmal atrial fibrillation; G20 Parkinson's disease; I25.10 Atherosclerotic heart disease of native coronary artery without angina pectoris; Z79.82 Long term (current) use of aspirin; Z79.51 Long term (current) use of inhaled steroids; Z79.899 Other long term (current) drug therapy; Z87.891 Personal history of nicotine dependence; Z95.1 Presence of aortocoronary bypass graft; Z87.440 Personal history of urinary (tract) infections
CPT/HCPCS: 71045; 76870; 80048; 80053; 81001; 82962; 84484; 85025; 87086; 87088; 87426; 93005; 93976; 94640; 97110; 97162; 97166; 97535; 97802; 99284; J7030; J7040; A4216

== ENCOUNTER 2020-06-02 07:15 | Emergency (ER) | payer MEDICARE, OTHER, SELFPAY ==
[2020-05-17 14:23] VITALS: BMI 39.6
[2020-06-02 07:15] VITALS: BP 128/62; PULSE 64; RESP 18; TEMP 36.4; O2SAT 97; BMI 38.2
--- NOTE | 2020-06-02 07:27 | EKG12_ITS ---
Test Reason : Blood Pressure : / mmHG Vent. Rate : 062 BPM Atrial Rate : 062 BPM P-R Int : 206 ms QRS Dur : 146 ms QT Int : 484 ms P-R-T Axes : -09 148 018 degrees QTc Int : 491 ms Normal sinus rhythm Right bundle branch block Inferior infarct , age undetermined Anterolateral infarct , age undetermined Abnormal ECG Confirmed by FILOMENA BRAVO, ZAC ([id number]), associate editor THOMAS FLORES ([id number]) on 06/05/2020 7:58:26 AM Referred By: CHRISTIANO Confirmed By:LUCIEN BUTT MD
--- NOTE | 2020-06-02 07:27 | ED.VIS.GEN ---
History of Present Illness Chief Complaint: Syncope Informant: Patient, Family Narrative: 74-year-old male presents following a fall here at the hospital. He tells me he came to the hospital today with his family to have a CT scan to evaluate for kidney stone. While checking and he felt a strong desire to have a bowel movement. He states that he rushed to the bathroom and in the process his feet were moving faster than he was and he fell down. He states he did not lose consciousness or hit his head. He is not recall feeling near syncopal or sweaty. He denies any chest pain shortness of breath. He denies any injuries from the fall. He tells me that he was recently admitted for UTI. Family states that he has been weak since that admission and not eating as well. - Past Medical History (1) NSTEMI (non-ST elevated myocardial infarction) Status: Chronic (2) CKD (chronic kidney disease) Status: Chronic (3) Diabetes Status: Chronic (4) Parkinson disease Status: Chronic Past Medical History - Allergies and Home Meds Allergies/Adverse Reactions: Allergies No Known Allergies Allergy (Verified 06/02/20 07:19) Primary Care Physician: Yosvany Leon [employer], [employer]-C [Primary Care Provider] - Keep Emmy appointment Surgical History: noncontributory, coronary bypass surgery, - - CABG, ablation for Afib Lives: Spouse/ Significant Other Smoking Status: Former smoker Drugs: None - Family History Paternal Family History: Reports: - - History was taken from patient's daughter who is unsure of paternal medical history. She thinks that patient's father had colon cancer. Maternal Family History: Reports: Heart Disease, Hypertension Review of Systems General: Denies: Chills, Fever, Sweats Eyes: Denies: Visual changes - bilaterally, Diplopia ENT: Denies: Rhinorrhea, Sore throat Cardiovascular: Denies: Chest pain, Palpitations Respiratory: Denies: Dyspnea, Cough, Dyspnea on exertion Gastrointestinal: Denies: Abdominal pain, Nausea, Vomiting, Diarrhea, Melena, Hematochezia Genitourinary: Denies: Dysuria, Hematuria, Frequency Musculoskeletal: Denies: Back pain, Extremity Pain Skin: Denies: Rash, Wounds Neurological: Denies: Headache, Weakness, Numbness Physical Exam Vital Signs/Narrative: Vital Signs Temp Pulse Resp BP Pulse Ox 06/02/20 07:15 97.6 F L 64 18 128/62 H 97 Inital Vital Signs reviewed: Yes General: Well nourished, Well developed, Obese, No Acute Distress Head: Normocephalic, Atraumatic Eyes: Perrl, EOMI ENT: Moist mucous membranes, No rhinorrhea Neck: Supple, Nontender Cardiovascular: Regular rate, Regular rhythm, No murmurs Respiratory: No distress, CTA bilaterally, Chest nontender Abdomen: Soft, Nontender, Nondistended, Normal bowel sounds Back: Nontender, Normal Inspection Extremities: Nontender, Edema - symmetric Skin: Normal color, No rash Neurological: Alert, Oriented x3, Cranial nerves II-XII grossly intact, Normal Strength, Normal Sensation Psychological: Normal affect, Normal Mood Diagnostic/Tx/Re-eval Laboratory Last Values WBC 9.3 K/mm3 (4.4-11.0) 06/02/20 07:20 RBC 4.32 M/mm3 (4.6-6.2) L 06/02/20 07:20 Hgb 12.3 g/dL (13.0-16.5) L 06/02/20 07:20 Hct 40.6 % (40-54) 06/02/20 07:20 MCV 94.0 fL (80-94) 06/02/20 07:20 MCH 28.5 pg (27.0-32.0) 06/02/20 07:20 MCHC 30.3 g/dL (32-36) L 06/02/20 07:20 RDW Std Deviation 54.4 fl (35.1-43.9) H 06/02/20 07:20 RDW Coeff of Sammi 15.9 % (11.6-14.6) H 06/02/20 07:20 Plt Count 270 K/mm3 (150-450) 06/02/20 07:20 MPV 11.4 fl (6.2-12.0) 06/02/20 07:20 Immature Gran % (Auto) 0.500 % (0.0-0.9) 06/02/20 07:20 Neut % (Auto) 64.1 % (47-70) 06/02/20 07:20 Lymph % (Auto) 25.6 % (19-41) 06/02/20 07:20 [place]les % (Auto) 6.3 % (0-10) 06/02/20 07:20 Eos % (Auto) 3.0 % (0-5) 06/02/20 07:20 Baso % (Auto) 0.5 % (0-1) 06/02/20 07:20 Absolute Neuts (auto) 6.0 X10^3/uL (2.0-7.7) 06/02/20 07:20 Absolute Lymphs (auto) 2.38 X10^3/uL (0.83-4.51) 06/02/20 07:20 Nucleated RBC % 0 % (0-5) 06/02/20 07:20 Sodium 140 mmol/L (136-145) 06/02/20 07:20 Potassium 3.9 mmol/L (3.5-5.1) 06/02/20 07:20 Chloride 104 mmol/L (98-107) 06/02/20 07:20 Carbon Dioxide 30.0 mmol/L (21.0-32.0) 06/02/20 07:20 Anion Gap 6 (5-15) 06/02/20 07:20 BUN 28 mg/dL (7-18) H 06/02/20 07:20 Creatinine 2.13 mg/dL (0.70-1.30) H 06/02/20 07:20 Estim Creat Clear Calc 21.83 ml/min 06/02/20 07:20 Est GFR (MDRD) Af Amer 39 mL/min (>60) L 06/02/20 07:20 Est GFR (MDRD) Non-Af 32 mL/min (>60) L 06/02/20 07:20 BUN/Creatinine Ratio 13.1 RATIO (10-20) 06/02/20 07:20 Glucose 144 mg/dL (74-106) H 06/02/20 07:20 Calcium 9.3 mg/dL (8.5-10.1) 06/02/20 07:20 Total Bilirubin 0.80 mg/dL (0.20-1.00) 06/02/20 07:20 AST 11 U/L (15-37) L 06/02/20 07:20 ALT 10 U/L (16-61) L 06/02/20 07:20 Alkaline Phosphatase 136 U/L (45-117) H 06/02/20 07:20 Total Protein 7.3 g/dL (6.4-8.2) 06/02/20 07:20 Albumin 3.5 g/dL (3.2-5.0) 06/02/20 07:20 Globulin 3.8 g/dL (2.2-4.2) 06/02/20 07:20 Albumin/Globulin Ratio 0.9 RATIO (0.9-2.4) 06/02/20 07:20 POC Glucose 161 mg/dL (70-110) H 06/02/20 07:24 - EKG Initial EKG Interpretation: Sinus Rhythm - EKG demonstrates a normal sinus rhythm at a rate of 62 with right bundle branch block. This appears unchanged from EKG from the beginning of the month. - Medical Decision Making From the patient's descriptions this sounds like a mechanical fall. There could be a component of vagal but he does not report those symptoms. Basic blood work shows chronic kidney disease. His EKG is unchanged from prior. He does able to ambulate without any difficulty. No events on the monitor. Patient does not appear injured from the fall he will be discharged home. ED Disposition - Plan for ED Patient: Disposition: Home or Assisted Living Diagnosis: Fall, CKD (chronic kidney disease), Coronary artery disease Instructions: ED Mechanical Fall Referrals: Yosvany Leon NP, [employer] [Primary Care Provider] - Keep Emmy appointment
[2020-06-02 07:31] LABS: Bedside Glucose 161 mg/dL (70-110)
[2020-06-02 07:37] LABS: Absolute Lymphocyte Count 2.38 X10^3/uL (0.83-4.51); Basophil# 0.05 X10^3/uL; Basophil% 0.5 % (0-1); Eosinophil# 0.28 X10^3/uL; Hematocrit 40.6 % (40-54); Hemoglobin 12.3 g/dL (13.0-16.5); Lymphocyte # 2.38 X10^3/ul (0.83-4.51); Lymphocyte % 25.6 % (19-41); Mean Corp Hgb Conc 30.3 g/dL (32-36); Mean Corpuscular Hgb 28.5 pg (27.0-32.0); Mean Platelet Vol. 11.4 fl (6.2-12.0); Monocyte# 0.59 X10^3/uL; Monocyte% 6.3 % (0-10); NRBC Flagged by Analyzer 0 % (0-5); Neutrophil # 5.96 X10^3/uL (2.7-7.7); Neutrophil % 64.1 % (47-70); Platelet Count 270 K/mm3 (150-450); RBC Distribution Width CV 15.9 % (11.6-14.6); RBC Distribution Width SD 54.4 fl (35.1-43.9); Red Blood Count 4.32 M/mm3 (4.6-6.2); White Blood Count 9.3 K/mm3 (4.4-11.0)
[2020-06-02 08:13] LABS: ALB/GLOB Ratio 0.9 RATIO (0.9-2.4); AST(SGOT) 11 U/L (15-37); Alanine Aminotransfer ALT/SGPT 10 U/L (16-61); Albumin, Serum 3.5 g/dL (3.2-5.0); Alkaline Phosphatase 136 U/L (45-117); Anion Gap 6 (5-15); BUN 28 mg/dL (7-18); BUN/Creat Ratio 13.1 RATIO (10-20); Calcium,Total 9.3 mg/dL (8.5-10.1); Chloride 104 mmol/L (98-107); Creatinine, Serum 2.13 mg/dL (0.70-1.30); EST Glomerular Filtration Rate 32 mL/min (>60); Est Glom Filt Rate - Afr Amer 39 mL/min (>60); Estimated Creatinine Clearance 21.83 ml/min; Globulin 3.8 g/dL (2.2-4.2); Glucose 144 mg/dL (74-106); Potassium 3.9 mmol/L (3.5-5.1); Protein, Total 7.3 g/dL (6.4-8.2); Sodium Level 140 mmol/L (136-145)
[2020-06-02 08:38] VITALS: BP 118/59; PULSE 60; RESP 18; O2SAT 98
[2020-06-02 09:11] VITALS: BP 120/60; PULSE 62; RESP 18; O2SAT 98
== END 2020-06-02 09:13 | disposition home or self-care (01) ==
PROVIDERS: Emergency Provider Emergency Medicine; PCP Nurse Practitioner Family
DX: Z04.3 Encounter for examination and observation following other accident (principal); W19.XXXA Unspecified fall, initial encounter; Y93.01 Activity, walking, marching and hiking; Y92.239 Unspecified place in hospital as the place of occurrence of the external cause; Y99.9 Unspecified external cause status; E11.22 Type 2 diabetes mellitus with diabetic chronic kidney disease; N18.9 Chronic kidney disease, unspecified; I25.10 Atherosclerotic heart disease of native coronary artery without angina pectoris; G20 Parkinson's disease; Z79.899 Other long term (current) drug therapy; Z79.82 Long term (current) use of aspirin; I25.2 Old myocardial infarction; Z87.440 Personal history of urinary (tract) infections; Z87.891 Personal history of nicotine dependence; Z95.1 Presence of aortocoronary bypass graft
CPT/HCPCS: 74176; 80053; 82962; 85025; 93005; 99284; A4216

== ENCOUNTER → 2020-06-02 08:15 | Outpatient (CLI) | payer MEDICARE, OTHER, SELFPAY ==
[2020-05-17 14:23] VITALS: BMI 39.6
[2020-06-02 07:15] VITALS: BMI 38.2
--- NOTE | 2020-06-02 08:17 | CT_ITS ---
STUDY: CT ABDOMEN AND PELVIS WITHOUT CONTRAST REASON FOR EXAM: Male, 74 years old. HX OF URINARY TRACT INFECTIONS. Right testicular swelling. RADIATION DOSAGE (If Supplied By Facility): CTDIvol = ( 7.61 ) mGy, DLP = ( 905.45 ) mGycm TECHNIQUE: Transaxial images were obtained from the dome of the diaphragm to the symphysis pubis without oral contrast, and without intravenous contrast. Sagittal and coronal images were reconstructed. Individualized dose optimization techniques were used for this CT. COMPARISON: None. FINDINGS: Mild increased markings at the lung bases suggestive of scarring. A dual-chamber pacemaker is seen. Normal liver. Normal gallbladder and extrahepatic biliary system. There are multiple benign calcified granulomata of the spleen. Normal pancreas. Normal bilateral adrenal glands. There is a 3.2 cm x 3 cm cyst in the upper lateral aspect of the right kidney. A similar appearing cyst measuring 2.3 cm in long in the inferior lateral aspect right kidney. There is a 4 cm x 4.2 cm cyst in the posterior upper pole of the left kidney. Normal visualized stomach. Normal small intestine. There are multiple colonic diverticula consistent with diverticulosis. The appendix is visualized and appears normal. There is diffuse atherosclerotic calcification of the abdominal aorta and its major visceral branches, without a demonstrated aneurysm. Normal inferior vena cava. Normal retroperitoneum. The urinary bladder is not adequately distended for assessment. There is enlargement of the prostate gland. It measures 5.4 cm x 5.1 cm. There is a small umbilical hernia containing fat. There are mild degenerative changes of the visualized lumbar spine. CT/Abdomen/Pelvis without Cont IMPRESSION: Bilateral renal cysts. Prostatic enlargement with indentation of the bladder base. Sigmoid diverticulosis. Electronically Signed: Clovis Khan MD at 9:42 EDT , Service support ,
== END ==
PROVIDERS: PCP Nurse Practitioner Family; Referring Provider Urology; Visit Provider Urology
DX: Z87.440 Personal history of urinary (tract) infections (principal)
CPT/HCPCS: 74176

== ENCOUNTER → 2020-06-18 11:29 | Outpatient (CLI) | payer MEDICARE, OTHER, SELFPAY ==
[2019-11-15 08:15] VITALS: BMI 44.6
[2020-06-02 07:15] VITALS: BMI 38.2
[2020-06-18 12:34] LABS: Hematocrit 38.9 % (40-54); Mean Corp Hgb Conc 30.8 g/dL (32-36); Mean Corpuscular Hgb 28.5 pg (27.0-32.0); Mean Corpuscular Volume 92.4 fL (80-94); Mean Platelet Vol. 11.8 fl (6.2-12.0); Platelet Count 156 K/mm3 (150-450); RBC Distribution Width CV 15.3 % (11.6-14.6); RBC Distribution Width SD 51.9 fl (35.1-43.9); Red Blood Count 4.21 M/mm3 (4.6-6.2); White Blood Count 7.5 K/mm3 (4.4-11.0)
[2020-06-18 12:57] LABS: Albumin, Serum 3.5 g/dL (3.2-5.0); BUN 21 mg/dL (7-18); BUN/Creat Ratio 10.8 RATIO (10-20); Calcium,Total 9.4 mg/dL (8.5-10.1); Chloride 104 mmol/L (98-107); Creatinine, Serum 1.94 mg/dL (0.70-1.30); EST Glomerular Filtration Rate 36 mL/min (>60); Est Glom Filt Rate - Afr Amer 43 mL/min (>60); Glucose 100 mg/dL (74-106); Potassium 3.7 mmol/L (3.5-5.1); Sodium Level 142 mmol/L (136-145)
[2020-06-18 12:59] LABS: PTHIN 120.8 pg/mL (18.4-80.1)
[2020-06-18 13:02] LABS: Vitamin D,25 Hydroxy 37.3 ng/mL
== END ==
PROVIDERS: PCP Nurse Practitioner Family; Referring Provider Internal Medicine Nephrology; Visit Provider Internal Medicine Nephrology
DX: N18.30 Chronic kidney disease, stage 3 unspecified (principal)
CPT/HCPCS: 36415; 80069; 82306; 83970; 85027

== ENCOUNTER → 2020-07-28 10:06 | Outpatient (CLI) | payer MEDICARE, OTHER, SELFPAY ==
[2019-11-15 08:15] VITALS: BMI 44.6
[2020-07-28 11:25] LABS: Microalbumin,Random Urine 8.8 mg/L (NO RANGE EST.); Microalbumin:Creatinine Ratio 44.8 mg/g CRE (<30 mg/g CRE)
[2020-07-28 11:31] LABS: Albumin, Serum 3.7 g/dL (3.2-5.0); BUN 28 mg/dL (7-18); BUN/Creat Ratio 15.6 RATIO (10-20); Calcium,Total 9.3 mg/dL (8.5-10.1); Chloride 106 mmol/L (98-107); Creatinine, Serum 1.79 mg/dL (0.70-1.30); EST Glomerular Filtration Rate 39 mL/min (>60); Est Glom Filt Rate - Afr Amer 48 mL/min (>60); Glucose 99 mg/dL (74-106); Phosphorus 2.6 mg/dL (2.5-4.9); Potassium 3.8 mmol/L (3.5-5.1); Sodium Level 143 mmol/L (136-145)
== END ==
PROVIDERS: PCP Nurse Practitioner Family; Referring Provider Internal Medicine Nephrology; Visit Provider Internal Medicine Nephrology
DX: E11.22 Type 2 diabetes mellitus with diabetic chronic kidney disease (principal); N18.30 Chronic kidney disease, stage 3 unspecified
CPT/HCPCS: 36415; 80069; 82043; 82570

== ENCOUNTER → 2020-08-20 10:24 | Outpatient (CLI) | payer MEDICARE, OTHER, SELFPAY ==
[2020-08-20 12:16] LABS: Albumin, Serum 3.5 g/dL (3.2-5.0); BUN 25 mg/dL (7-18); BUN/Creat Ratio 13.3 RATIO (10-20); Calcium,Total 9.1 mg/dL (8.5-10.1); Chloride 109 mmol/L (98-107); Creatinine, Serum 1.88 mg/dL (0.70-1.30); EST Glomerular Filtration Rate 37 mL/min (>60); Est Glom Filt Rate - Afr Amer 45 mL/min (>60); Glucose 108 mg/dL (74-106); Phosphorus 2.3 mg/dL (2.5-4.9); Sodium Level 142 mmol/L (136-145)
== END ==
PROVIDERS: PCP Nurse Practitioner Family; Referring Provider Internal Medicine Nephrology; Visit Provider Internal Medicine Nephrology
DX: N18.30 Chronic kidney disease, stage 3 unspecified (principal)
CPT/HCPCS: 36415; 80069

== ENCOUNTER 2020-09-29 05:52 | Emergency (ER) | payer MEDICARE, OTHER, SELFPAY ==
[2020-09-29 05:53] VITALS: BP 125/61; PULSE 58; RESP 18; TEMP 36.6; O2SAT 96; BMI 43.1
--- NOTE | 2020-09-29 05:59 | CT_ITS ---
STUDY: CT ABDOMEN AND PELVIS WITHOUT CONTRAST REASON FOR EXAM: Male, 75 years old. flank pain RADIATION DOSAGE (If Supplied By Facility): CTDIvol = ( 18.64 ) mGy, DLP = ( 921.90 ) mGycm TECHNIQUE: Transaxial images were obtained from the dome of the diaphragm to the symphysis pubis without oral contrast, and without intravenous contrast. Sagittal and coronal images were reconstructed. Individualized dose optimization techniques were used for this CT. COMPARISON: June 02, 2020. Renal ultrasound November 18, 2019. CT chest November 19, 2019. FINDINGS: The visualized lung bases are unremarkable. Mild cardiomegaly. Coronary artery calcifications. Sternal wires. Artifact from cardiac pacemaker leads. Normal liver. Normal gallbladder and extrahepatic biliary system. There are multiple benign calcified granulomata of the spleen. Normal pancreas. Right adrenal nodule measuring 2.0 x 1.9 cm, attenuation 8 Hounsfield units slightly decreased in size since November 2019 compatible with an adrenal adenoma. Normal left adrenal gland. Single bilateral renal simple cysts. Stomach not well distended limiting evaluation. Normal small intestine. Colonic diverticulosis with most prominent involvement of the sigmoid colon. The appendix is visualized and appears normal. There is scattered atherosclerotic calcification of the abdominal aorta, without a demonstrated aneurysm. Normal inferior vena cava. Normal retroperitoneum. No intra-abdominal free air. Normal urinary bladder. Mild prostate gland enlargement. Normal abdominal wall. Normal osseous structures. CT/Abdomen/Pelvis without Cont IMPRESSION: No acute findings in the abdomen or pelvis. No hydronephrosis or urinary tract stones. Incidental right adrenal adenoma. Colonic diverticulosis. Bilateral simple renal cysts which requires no further evaluation. Prostate gland enlargement noted previously. Old granulomatous disease. Electronically Signed: Speedy Obrien MD at 7:50 EDT , Service support ,
--- NOTE | 2020-09-29 06:06 | EX.ED.GUMALE ---
HPI History of Present Illness Chief Complaint: Complaint Narrative Narrative: 75-year-old male presenting with dysuria. He stated that he started and noticed the pain yesterday with urination. He also complains of back pain. His family states that he had not complained about it until overnight. She also states that he has chronic lower back pain due to arthritis. Patient has not had fever, chills, nausea, vomiting. His family states that he has a history of UTI and previously placed on antibiotics however when the urine culture came back this was not an effective antibiotic and had to be changed. Patient subsequently had to be admitted for UTI. Prior similar symptoms: Yes [facility] Medical History Congestive heart failure (CHF) Coronary artery disease Diabetes Kidney disease Myocardial infarct Home Medications allopurinol 100 mg PO BIDCM 12/04/17 [History Last Taken Unknown] amlodipine [Norvasc] 10 mg PO DAILY 12/04/17 [History Last Taken Unknown] aspirin 81 mg PO DAILY@0800 12/04/17 [History Last Taken Unknown] carbidopa-levodopa 2 ea PO TID 12/04/17 [History Last Taken Unknown] docusate sodium [DOK] 200 mg PO DAILY 12/04/17 [History Last Taken Unknown] esomeprazole magnesium 40 mg PO DAILY 12/04/17 [History Last Taken Unknown] fluticasone propionate [Flovent HFA] 1 puff INHALATION BID 12/04/17 [History Last Taken Unknown] metoprolol succinate [Toprol XL] 50 mg PO DAILY 12/04/17 [History Last Taken Unknown] slisukog-lfx-ekdnc-vit K-lycop [One-A-Day Men's 50 Plus] 1 ea PO DAILY 12/04/17 [History Last Taken Unknown] omega-3 fatty acids-fish oil [Fish Oil] 1 ea PO DAILY 12/04/17 [History Last Taken Unknown] brimonidine 1 drp OPHTHALMIC (EYE) BID 12/05/17 [History Last Taken Unknown] furosemide 40 mg PO DAILY 04/09/19 [History Last Taken Unknown] garlic 500 mg PO DAILY 04/09/19 [History Last Taken Unknown] Allergy/AdvReac Type Severity Reaction Status Date / Time No Known Allergies Allergy Verified 09/29/20 05:56 Surgical History History of left heart catheterization (11/22/19) Hx of CABG Social History Smoking Status: Former smoker ROS ROS ED Constitutional Constitutional ED: Denies chills or fever(s) Eyes Eyes: Denies blurry vision or change in vision ENT ENT ED: Denies rhinorrhea or sore throat Cardiovascular Cardiovascular: Denies chest pain or palpitations Respiratory/Chest Respiratory/Chest: Denies cough, dyspnea or sputum Gastrointestinal Gastrointestinal: Denies abdominal pain, constipation, diarrhea, nausea or vomiting Genitourinary Genitourinary ED: Reports dysuria and urinary frequency Musculoskeletal Musculoskeletal: Reports back pain; Denies neck pain Integumentary Denies abscess or rash Neurologic Neurologic: Denies headache(s) or paresthesias EXAM Physical Exam Const Vital Signs: 09/29/20 05:53 Temperature 97.8 F Temperature Source Temporal Pulse Rate 58 L Respiratory Rate 18 Blood Pressure 125/61 H Blood Pressure Mean 82 Pulse Ox 96 Oxygen Delivery Method Room Air Positive well nourished General Appearance ED: NAD HEENT normocephalic and atraumatic Eyes PERRL Resp normal respiratory effort and clear to auscultation bilaterally Cardio regular rate and regular rhythm GI non-tender and non-distended Palpation: soft Bladder / Kidney Exam: CVA tenderness bilateral Neuro oriented x3 Sensorium / Orientation: alert Psych mental status grossly normal Skin Lesions: no lesions Rashes: no rashes MDM MDM MDM Narrative Medical decision making narrative: Patient presented with lower back pain as well as dysuria. Urinalysis found to be negative. Renal function is at baseline. No leukocytosis and stable H&H. CT of the abdomen pelvis is obtained and shows no acute findings. There is previously noted prostate enlargement. Patient counseled on findings. I feel at this point patient is stable to be discharged home. Impression: 1. Dysuria Lab Data Attestation: I reviewed the patient's lab results. Labs: Laboratory Results - last 24 hr 09/29/20 09/29/20 09/29/20 06:20 06:20 06:20 WBC 7.2 RBC 4.40 L Hgb 12.3 L Hct 40.9 MCV 93.0 MCH 28.0 MCHC 30.1 L RDW Std Deviation 50.7 H RDW Coeff of Sammi 15.0 H Plt Count 162 MPV 11.6 Immature Gran % (Auto) 0.400 Neut % (Auto) 63.9 Lymph % (Auto) 22.7 Loving % (Auto) 9.0 Eos % (Auto) 3.6 Baso % (Auto) 0.4 Absolute Neuts (auto) 4.6 Absolute Lymphs (auto) 1.64 Nucleated RBC % 0 Sodium 142 Potassium 4.1 Chloride 108 H Carbon Dioxide 27.0 Anion Gap 7 BUN 31 H Creatinine 1.97 H Estim Creat Clear Calc 22.21 Est GFR (MDRD) Af Amer 43 L Est GFR (MDRD) Non-Af 35 L BUN/Creatinine Ratio 15.7 Glucose 117 H Calcium 9.0 Urine Color Yellow Urine Clarity Clear Urine pH 6.0 Ur Specific [place] 1.015 Urine Protein 15 H Urine Glucose (UA) Normal Urine Ketones Negative Urine Occult Blood Negative Urine Nitrite Negative Urine Bilirubin Negative Urine Urobilinogen Normal Ur Leukocyte Esterase 25 H Urine RBC 0 SEEN Urine WBC 0-5 SEEN Ur Squamous Epith Cells 0-5 SEEN Urine Bacteria RARE Urine Mucus 0 SEEN Radiography Diagnostic Testing: Radiology Impression Abdomen/Pelvis CT 09/29/20 05:59 IMPRESSION: No acute findings in the abdomen or pelvis. No hydronephrosis or urinary tract stones. Incidental right adrenal adenoma. Colonic diverticulosis. Bilateral simple renal cysts which requires no further evaluation. Prostate gland enlargement noted previously. Old granulomatous disease. Electronically Signed: Speedy Obrien MD at 7:50 EDT , Service support , Discharge Plan Triage Chief Complaint: Complaint ED Provider: Ubaldo Gaviria Dx/Rx/DC Orders Instructions: ED Dysuria, Uncertain Cause (Adult) Prescriptions: No Action metoprolol succinate [Toprol XL] 100 MG Tab.Er.24h 50 mg PO DAILY RF: 0 amlodipine [Norvasc] 5 MG tablet 10 mg PO DAILY RF: 0 allopurinol 100 MG tablet 100 mg PO BIDCM RF: 0 aspirin 81 MG tablet 81 mg PO DAILY@0800 RF: 0 esomeprazole magnesium 40 MG Capsule.Dr 40 mg PO DAILY RF: 0 docusate sodium [DOK] 100 MG capsule 200 mg PO DAILY RF: 0 fluticasone propionate [Flovent HFA] 1 INHALER inhaler 1 puff inhalation BID RF: 0 carbidopa-levodopa 1 EACH Tab.Rapdis 2 ea PO TID RF: 0 omega-3 fatty acids-fish oil [Fish Oil] 1 EACH capsule 1 ea PO DAILY RF: 0 izudjkks-vpc-byfcz-vit K-lycop [One-A-Day Men's 50 Plus] 1 EACH tablet 1 ea PO DAILY RF: 0 brimonidine 0.2 % bottle 1 drp ophthalmic (eye) BID RF: 0 furosemide 40 MG tablet 40 mg PO DAILY RF: 0 garlic 500 MG capsule 500 mg PO DAILY RF: 0 Primary Care Provider: Yosvany Leon NP Referrals: Yosvany Leon NP, ELECTRICAL TRYOUT PERSON-C [Primary Care Provider] - Disposition Disposition: Home, Self Care
[2020-09-29 06:30] LABS: Mucous, Urine 0 SEEN /hpf (<or=2+); Red Blood Cells-Urine 0 SEEN /hpf (0-5)
[2020-09-29 06:31] LABS: Absolute Lymphocyte Count 1.64 X10^3/uL (0.83-4.51); Absolute Neutrophil Count 4.6 X10^3/uL (2.0-7.7); Basophil# 0.03 X10^3/uL; Basophil% 0.4 % (0-1); Eosinophil# 0.26 X10^3/uL; Eosinophils% 3.6 % (0-5); Hematocrit 40.9 % (40-54); Hemoglobin 12.3 g/dL (13.0-16.5); Lymphocyte # 1.64 X10^3/ul (0.83-4.51); Lymphocyte % 22.7 % (19-41); Mean Corp Hgb Conc 30.1 g/dL (32-36); Mean Platelet Vol. 11.6 fl (6.2-12.0); Monocyte# 0.65 X10^3/uL; NRBC Flagged by Analyzer 0 % (0-5); Neutrophil % 63.9 % (47-70); Platelet Count 162 K/mm3 (150-450); RBC Distribution Width SD 50.7 fl (35.1-43.9); White Blood Count 7.2 K/mm3 (4.4-11.0)
[2020-09-29 06:32] LABS: Color, Urine Yellow (Yellow); Glucose, Dipstick Normal (Normal); Ketone-Dipstick Negative (Negative); Leukocyte Esterase-Dipstick 25 /ul (Negative); Nitrite-Dipstick Negative (Negative); Occult Blood-Urine Negative /ul (Negative); Protein-Dipstick 15 mg/dl (Negative); Specific Gravity, Urine 1.015 (1.002-1.030); Urine Bilirubin Dipstick Negative (Negative); Urine Clarity Clear (Clear); Urine Urobilinogen Normal (Normal)
[2020-09-29 06:42] LABS: Bacteria RARE /hpf (None Seen); Squamous Epithelial Cells - UA 0-5 SEEN /hpf (0-5); White Blood Cells 0-5 SEEN /hpf (0-5)
[2020-09-29 06:43] LABS: Anion Gap 7 (5-15); BUN 31 mg/dL (7-18); BUN/Creat Ratio 15.7 RATIO (10-20); Chloride 108 mmol/L (98-107); Creatinine, Serum 1.97 mg/dL (0.70-1.30); EST Glomerular Filtration Rate 35 mL/min (>60); Est Glom Filt Rate - Afr Amer 43 mL/min (>60); Estimated Creatinine Clearance 22.21 ml/min; Glucose 117 mg/dL (74-106); Potassium 4.1 mmol/L (3.5-5.1); Sodium Level 142 mmol/L (136-145)
[2020-09-29 07:57] VITALS: BP 137/68; O2SAT 97
== END 2020-09-29 08:08 | disposition home or self-care (01) ==
PROVIDERS: Emergency Provider Student in an Organized Health Care Education/Training Program; PCP Nurse Practitioner Family
DX: R30.0 Dysuria (principal); R35.0 Frequency of micturition; E11.9 Type 2 diabetes mellitus without complications; I50.9 Heart failure, unspecified; I25.2 Old myocardial infarction; I25.10 Atherosclerotic heart disease of native coronary artery without angina pectoris; G89.29 Other chronic pain; M19.90 Unspecified osteoarthritis, unspecified site; Z87.440 Personal history of urinary (tract) infections; Z95.1 Presence of aortocoronary bypass graft; Z79.82 Long term (current) use of aspirin; Z79.899 Other long term (current) drug therapy; Z87.891 Personal history of nicotine dependence
CPT/HCPCS: 74176; 80048; 81001; 85025; 87086; 87088; 99283; A4216

== ENCOUNTER → 2020-12-24 09:00 | Outpatient (CLI) | payer MEDICARE, OTHER, SELFPAY ==
[2020-12-24 10:14] LABS: BUN 33 mg/dL (7-18); BUN/Creat Ratio 16.6 RATIO (10-20); Calcium,Total 8.6 mg/dL (8.5-10.1); Chloride 107 mmol/L (98-107); Creatinine, Serum 1.99 mg/dL (0.70-1.30); EST Glomerular Filtration Rate 35 mL/min (>60); Est Glom Filt Rate - Afr Amer 42 mL/min (>60); Glucose 150 mg/dL (74-106); Phosphorus 2.5 mg/dL (2.5-4.9); Potassium 3.7 mmol/L (3.5-5.1); Sodium Level 141 mmol/L (136-145)
== END ==
PROVIDERS: PCP Nurse Practitioner Family; Visit Provider Internal Medicine Nephrology
DX: N18.32 Chronic kidney disease, stage 3b (principal)
CPT/HCPCS: 36415; 80069

== ENCOUNTER 2021-04-23 10:26 | Outpatient (CLI) | payer MEDICARE, OTHER, SELFPAY ==
[2021-04-23 11:40] LABS: Hemoglobin 13.5 g/dL (13.0-16.5); Mean Corp Hgb Conc 32.9 g/dL (32-36); Mean Corpuscular Hgb 30.6 pg (27.0-32.0); Mean Platelet Vol. 11.9 fl (6.2-12.0); Platelet Count 180 K/mm3 (150-450); RBC Distribution Width CV 14.4 % (11.6-14.6); RBC Distribution Width SD 49.1 fl (35.1-43.9); Red Blood Count 4.41 M/mm3 (4.6-6.2); White Blood Count 8.4 K/mm3 (4.4-11.0)
[2021-04-23 12:12] LABS: Vitamin B12 428 pg/mL (211-911)
[2021-04-23 12:29] LABS: ALB/GLOB Ratio 1.1 RATIO (0.9-2.4); AST(SGOT) 20 U/L (15-37); Alanine Aminotransfer ALT/SGPT 12 U/L (16-61); Albumin, Serum 3.6 g/dL (3.2-5.0); Alkaline Phosphatase 148 U/L (45-117); Anion Gap 1 (5-15); BUN 26 mg/dL (7-18); BUN/Creat Ratio 14.3 RATIO (10-20); Chloride 107 mmol/L (98-107); Creatinine, Serum 1.82 mg/dL (0.70-1.30); EST Glomerular Filtration Rate 39 mL/min (>60); Est Glom Filt Rate - Afr Amer 47 mL/min (>60); Globulin 3.3 g/dL (2.2-4.2); Glucose 114 mg/dL (74-106); Potassium 4.1 mmol/L (3.5-5.1); Protein, Total 6.9 g/dL (6.4-8.2); Sodium Level 139 mmol/L (136-145); Thyroid Stim Hormone (TSH) 1.72 uIU/mL (0.358-3.74)
[2021-05-03 19:07] LABS: Free Kappa Light Chains 32.5 mg/L (3.3-19.4); Free Lambda Light Chains 33.1 mg/L (5.7-26.3)
[2021-05-03 21:38] LABS: Vitamin B1, Thiamine 162.8 nmol/L (66.5-200.0)
== END 2021-04-23 23:59 | disposition home or self-care (01) ==
PROVIDERS: PCP Nurse Practitioner Family; Referring Provider Psychiatry & Neurology Neurology; Visit Provider Psychiatry & Neurology Neurology
DX: F03.90 Unspecified dementia, unspecified severity, without behavioral disturbance, psychotic disturbance, mood disturbance, and anxiety (principal); E11.9 Type 2 diabetes mellitus without complications; G62.9 Polyneuropathy, unspecified
CPT/HCPCS: 36415; 80053; 82607; 82746; 83883; 84425; 84443; 85027

== ENCOUNTER 2021-04-23 10:49 | Emergency (ER) | payer MEDICARE, OTHER, SELFPAY ==
[2021-04-23 10:49] VITALS: BP 132/64; PULSE 50; RESP 18; TEMP 36.4; O2SAT 100; BMI 40.6
--- NOTE | 2021-04-23 11:03 | EDS_ITS ---
HPI <MARTA Trevino - Last Filed: 04/23/21 11:14> HPI - Fall History of Present Illness Chief Complaint: Fall Narrative Narrative: Patient was getting out of his car to come here for routine blood work when his ankle gave out and he fell onto his left side. He hit his left elbow and has some skin tears. Denies head injury or LOC. He was able to get up and ambulate into get his blood work done and then came to the ER for evaluation. He denies pain in the elbow. Last tetanus unknown. PFSH <MARTA Trevino - Last Filed: 04/23/21 11:14> [facility] Medical History (Updated 04/23/21 @ 11:08 by MARTA Trevino) Arthritis Atrial fibrillation Back problem Bone fracture Carpal tunnel syndrome Congestive heart failure (CHF) Coronary artery disease Diabetes GERD (gastroesophageal reflux disease) Glaucoma Gout High cholesterol High triglycerides Hx of cataract Hypertension Kidney disease Myocardial infarct Vision problems Home Medications allopurinol 100 mg PO BIDCM 12/04/17 [History Last Taken Unknown] amlodipine [Norvasc] 10 mg PO DAILY 12/04/17 [History Last Taken Unknown] aspirin 81 mg PO DAILY@0800 12/04/17 [History Last Taken Unknown] fluticasone propionate [Flovent HFA] 1 puff INHALATION BID 12/04/17 [History Last Taken Unknown] metoprolol succinate [Toprol XL] 50 mg PO DAILY 12/04/17 [History Last Taken Unknown] tvbjjwyj-htn-yupdj-vit K-lycop [One-A-Day Men's 50 Plus] 1 ea PO DAILY 12/04/17 [History Last Taken Unknown] omega-3 fatty acids-fish oil [Fish Oil] 1 ea PO DAILY 12/04/17 [History Last Taken Unknown] brimonidine 1 drp OPHTHALMIC (EYE) BID 12/05/17 [History Last Taken Unknown] furosemide 40 mg PO DAILY 04/09/19 [History Last Taken Unknown] garlic 500 mg PO DAILY 04/09/19 [History Last Taken Unknown] apixaban 5 mg tablet 5 mg PO BID 04/13/21 [History Last Taken Unknown] atorvastatin 40 mg tablet 40 mg PO DAILY 04/13/21 [History Last Taken Unknown] carbidopa 25 mg-levodopa 100 mg disintegrating tablet 2 tab PO .QID #240 tab 04/13/21 [Rx Last Taken Unknown] carbidopa 25 mg-levodopa 100 mg tablet 2 tab PO .QID #240 tab 04/13/21 [Rx Last Taken Unknown] pantoprazole 40 mg tablet,delayed release 40 mg PO DAILY 04/13/21 [History Last Taken Unknown] potassium chloride 10 mEq tablet,extended release 10 meq PO DAILY 04/13/21 [History Last Taken Unknown] Allergy/AdvReac Type Severity Reaction Status Date / Time No Known Allergies Allergy Verified 04/23/21 10:50 Family History (Updated 04/13/21 @ 10:41 by Cristine HomeRun) Other Alcoholism Bowel disease Colon cancer Diabetes Heart disease Myocardial infarction Parkinson disease Surgical History (Updated 04/13/21 @ 10:39 by Cristine HomeRun) H/O heart artery stent History of carpal tunnel surgery History of left heart catheterization (11/22/19) Hx of CABG S/P placement of cardiac pacemaker Social History (Updated 04/13/21 @ 10:40 by Cristine HomeRun) Smoking Status: Former smoker alcohol intake: current substance use type: does not use what type of physical activity do you participate in: none ROS <MARTA Trevino - Last Filed: 04/23/21 11:14> ROS ED ROS Narrative Constitutional: Negative for fever, chills, malaise. Eyes: Negative for visual change. ENT: Negative for sore throat, ear pain, rhinorrhea. CVS: Negative for chest pain. Respiratory: Negative for shortness of breath, cough, orthopnea. GI: Negative for nausea, vomiting. : Negative for dysuria. Neuro: Negative for headache, motor/sensory dysfunction. Skin: Positive for wound. Musc: Positive for trauma. Negative for joint pain, swelling. Heme: Negative for easy bruising, bleeding, lymphadenopathy. EXAM <MARTA Trevino - Last Filed: 04/23/21 11:14> Physical Exam Narrative Exam Narrative: CONST: Patient sitting in no acute distress. EYES: Normal inspection. ENT: Normal inspection. NECK: Normal inspection. RESP: No respiratory distress, CTAB. Chest wall nontender. CVS: Regular rate and rhythm, no murmur, no gallop. ABD: Soft and nontender, no guarding or rebound, nondistended. SKIN: 2 small skin tears to left elbow, no bleeding or foreign body. EXTREMITIES: Normal appearance, no pedal edema. Full range of motion of the left upper extremity, no bony tenderness, normal strength and sensation, 2+ radial pulse and capillary refill less than 5 seconds in all digits. NEURO: Oriented x4. PSYCH: Normal affect. Const Vital Signs: 04/23/21 10:49 Temperature 97.5 F L Temperature Source Temporal Pulse Rate 50 L Respiratory Rate 18 Blood Pressure 132/64 H Blood Pressure Mean 86 Pulse Ox 100 Oxygen Delivery Method Room Air <Dr. Brigido Herrera MD - Last Filed: 04/23/21 11:19> Physical Exam Const Vital Signs: 04/23/21 10:49 Temperature 97.5 F L Temperature Source Temporal Pulse Rate 50 L Respiratory Rate 18 Blood Pressure 132/64 H Blood Pressure Mean 86 Pulse Ox 100 Oxygen Delivery Method Room Air MDM <MARTA Trevino - Last Filed: 04/23/21 11:14> [facility] Narrative Medical decision making narrative: Patient had a mechanical fall and presents with left elbow injury. He has 2 small skin tears to the left elbow. He has full range of motion and no bony tenderness. Extremity is neurovascularly intact. At this time there is no indication for plain films or work-up as this was a mechanical fall. Wounds were cleansed and bandaged and his tetanus was updated. We discussed wound care and to return for signs of infection. He was discharged in stable condition. 1. Mechanical fall 2. Skin tears, left elbow <Dr. 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 He was scheduled today for outpatient lab work. Was he was getting out of the car lost his balance fell landing on his left elbow causing skin tears. He did not hit his head. No LOC. Said he was feeling fine. He denies any other complaints. Exam is a 75-year-old male no acute distress. Vital signs are stable afebrile. Exam is benign except he has 2 skin tears on his left elbow. They will be cleaned and dressed. He has no left shoulder pain. He has full flexion- extension of the left elbow. Supination and pronation. There is no bony deformity. 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 Otherwise heart lung abdominal exam unremarkable. Scalp is nontender. Back nontender. Neurologically is awake and alert. Tetanus will be updated be di scharged home. The wound to be cleaned and dressed. Discharge Plan Triage Chief Complaint: Fall ED Provider: Britney Tinoco Dx/Rx/DC Orders Clinical Impression: Skin tear of elbow without complication Instructions: ED Skin Avulsion Prescriptions: No Action pantoprazole 40 mg tablet,delayed release (DR/EC) 40 mg PO DAILY RF: 0 atorvastatin 40 mg tablet 40 mg PO DAILY RF: 0 potassium chloride 10 mEq tablet extended release 10 meq PO DAILY RF: 0 Eliquis 5 mg tablet 5 mg PO BID RF: 0 carbidopa-levodopa 25-100 mg tablet,disintegrating 2 tab PO .QID Qty: 240 RF: 4 carbidopa-levodopa [Sinemet] 25-100 mg tablet 2 tab PO .QID Qty: 240 RF: 4 metoprolol succinate [Toprol XL] 100 MG tablet extended release 24 hr 50 mg PO DAILY RF: 0 amlodipine [Norvasc] 5 MG tablet 10 mg PO DAILY RF: 0 allopurinol 100 MG tablet 100 mg PO BIDCM RF: 0 aspirin 81 MG tablet 81 mg PO DAILY@0800 RF: 0 fluticasone propionate [Flovent HFA] 1 INHALER inhaler 1 puff inhalation BID RF: 0 omega-3 fatty acids-fish oil [Fish Oil] 1 EACH capsule 1 ea PO DAILY RF: 0 vtyobpbb-mce-fgxsz-vit K-lycop [One-A-Day Men's 50 Plus] 1 EACH tablet 1 ea PO DAILY RF: 0 brimonidine 0.2 % bottle 1 drp ophthalmic (eye) BID RF: 0 furosemide 40 MG tablet 40 mg PO DAILY RF: 0 garlic 500 MG capsule 500 mg PO DAILY RF: 0 Primary Care Provider: Yosvany Leon NP Referrals: Yosvany Leon UNDERGROUND PRODUCTION FOREPERSON, UNDERGROUND PRODUCTION FOREPERSON-C [Primary Care Provider] - Activity Restrictions/Additional Instructions: Gently clean the wounds with soap and water in the shower and keep covered. You can apply bacitracin and a bandage. If you develop any signs of infection such as surrounding redness, warmth, or pus please come back to the ER. Disposition Disposition: Home, Self Care
[2021-04-23 11:12] VITALS: BP 132/64; PULSE 50; RESP 18; TEMP 36.4; O2SAT 100
[2021-04-23] MEDS: Diphth,Pertuss(Acell),Tet Vac 0.5 ML Vial IM (11:25)
== END 2021-04-23 11:57 | disposition home or self-care (01) ==
PROVIDERS: Emergency Provider Physician Assistant; PCP Nurse Practitioner Family; Visit Provider Physician Assistant
DX: S51.012A Laceration without foreign body of left elbow, initial encounter (principal); F03.90 Unspecified dementia, unspecified severity, without behavioral disturbance, psychotic disturbance, mood disturbance, and anxiety; I11.0 Hypertensive heart disease with heart failure; I50.9 Heart failure, unspecified; I48.91 Unspecified atrial fibrillation; E11.9 Type 2 diabetes mellitus without complications; V48.4XXA Person boarding or alighting a car injured in noncollision transport accident, initial encounter; Y92.810 Car as the place of occurrence of the external cause; Z23 Encounter for immunization; I25.10 Atherosclerotic heart disease of native coronary artery without angina pectoris; I25.2 Old myocardial infarction; E78.00 Pure hypercholesterolemia, unspecified; K21.9 Gastro-esophageal reflux disease without esophagitis; M10.9 Gout, unspecified; Z79.82 Long term (current) use of aspirin; Z79.01 Long term (current) use of anticoagulants; Z95.1 Presence of aortocoronary bypass graft; Z95.0 Presence of cardiac pacemaker; Z87.891 Personal history of nicotine dependence
CPT/HCPCS: 36415; 80053; 82607; 82746; 83883; 84425; 84443; 85027; 90471; 90715; 99283

== ENCOUNTER 2021-04-26 13:17 | Outpatient (CLI) | payer MEDICARE, OTHER, SELFPAY ==
--- NOTE | 2021-04-26 13:20 | CT_ITS ---
INDICATION: Parkinson''s dz, cerebrovascular disease, dementia -- pt cannot have MRI due to pacemaker/defibrillator EXAMINATION: CT BRAIN - CT Head or Brain W/O Contrast Injection TECHNIQUE: Multiple axial images were obtained of the head without intravenous contrast. A radiation dose optimization technique was used for this scan. IV Contrast dosage and agent: None. COMPARISON: CT head without contrast from 07/12/2018. FINDINGS: No acute intracranial hemorrhage. No significant midline shift. Mild diffuse cortical atrophy. Ventricles are stable configuration since 2019 with no findings to suggest hydrocephalus. Chronic small vessel ischemic changes which appear similar to prior. No large territory acute cortical infarction. No significant cerebral edema. No masses. Scattered atherosclerotic calcifications within the supraclinoid and cavernous bilateral internal carotid arteries as well as the bilateral intracranial vertebral arteries. Orbits and globes are unremarkable. No acute calvarial fracture. No destructive osseous lesions. Soft tissues are unremarkable. Unchanged right maxillary sinus polyp or mucus retention cyst. Small left maxillary sinus mucus retention cyst/polyps. Sinuses are otherwise patent. Mastoid air cells are clear. CT/Brain/Head without Contrast IMPRESSION: 1. No acute intracranial findings. 2. Chronic small vessel ischemic changes. Electronically Signed: Grant Grande, at 16:13 EDT ,
== END 2021-04-26 23:59 | disposition home or self-care (01) ==
LOC: CT 13:18
PROVIDERS: PCP Nurse Practitioner Family; Referring Provider Psychiatry & Neurology Neurology; Visit Provider Psychiatry & Neurology Neurology
DX: G20 Parkinson's disease (principal); F03.90 Unspecified dementia, unspecified severity, without behavioral disturbance, psychotic disturbance, mood disturbance, and anxiety; I67.9 Cerebrovascular disease, unspecified
CPT/HCPCS: 70450

== ENCOUNTER → 2021-07-28 | Outpatient (CLI) | payer MEDICARE, OTHER, SELFPAY ==
[2021-07-28 13:08] LABS: Protein, Urine (Random) 10.3 mg/dL (<11.9); Protein:Creat Ratio 144 mg/g CRE (0-200)
[2021-07-28 13:16] LABS: Hematocrit 41.4 % (40-54); Hemoglobin 13.3 g/dL (13.0-16.5); Mean Corp Hgb Conc 32.1 g/dL (32-36); Mean Corpuscular Hgb 29.8 pg (27.0-32.0); Mean Corpuscular Volume 92.6 fL (80-94); Mean Platelet Vol. 12.1 fl (6.2-12.0); Platelet Count 165 K/mm3 (150-450); RBC Distribution Width CV 14.3 % (11.6-14.6); Red Blood Count 4.47 M/mm3 (4.6-6.2); White Blood Count 8.5 K/mm3 (4.4-11.0)
[2021-07-28 13:24] LABS: Albumin, Serum 3.5 g/dL (3.2-5.0); BUN 28 mg/dL (7-18); BUN/Creat Ratio 13.9 RATIO (10-20); Calcium,Total 9.2 mg/dL (8.5-10.1); Chloride 105 mmol/L (98-107); Creatinine, Serum 2.01 mg/dL (0.70-1.30); EST Glomerular Filtration Rate 34 mL/min (>60); Est Glom Filt Rate - Afr Amer 42 mL/min (>60); Glucose 90 mg/dL (74-106); PTHIN 138.4 pg/mL (18.4-80.1); Phosphorus 2.5 mg/dL (2.5-4.9); Potassium 4.1 mmol/L (3.5-5.1); Sodium Level 142 mmol/L (136-145)
== END | disposition home or self-care (01) ==
LOC: LAB 08-02 08:58
PROVIDERS: PCP Nurse Practitioner Family; Visit Provider Internal Medicine Nephrology
DX: E11.22 Type 2 diabetes mellitus with diabetic chronic kidney disease (principal); N18.32 Chronic kidney disease, stage 3b
CPT/HCPCS: 36415; 80069; 82570; 83970; 84156; 85027

== ENCOUNTER → 2021-08-03 | Outpatient (CLI) | payer MEDICARE, OTHER, SELFPAY ==
[2021-08-06 17:07] LABS: Albumin 3.6 g/dL (2.9-4.4); Alpha-1-Globulins 0.3 g/dL (0.0-0.4); Alpha-2-Globulins 0.9 g/dL (0.4-1.0); Gamma Globulin 0.7 g/dL (0.4-1.8); Immunoglobulin A 366 mg/dL (61-437); Immunoglobulin G 717 mg/dL (603-1613); Immunoglobulin M 27 mg/dL (15-143); PROEL- TOTAL PROTEIN 6.7 g/dL (6.0-8.5)
== END | disposition home or self-care (01) ==
LOC: MTLAB 14:33
PROVIDERS: PCP Nurse Practitioner Family; Referring Provider Psychiatry & Neurology Neurology; Visit Provider Psychiatry & Neurology Neurology
DX: G62.9 Polyneuropathy, unspecified (principal)
CPT/HCPCS: 36415; 82784; 84165; 86334; 86335

== ENCOUNTER 2021-10-17 11:24 | Emergency (ER) | payer MEDICARE, OTHER, SELFPAY ==
[2021-10-17 11:25] VITALS: BP 129/65; PULSE 58; RESP 16; TEMP 36.4; O2SAT 97; BMI 45.3
--- NOTE | 2021-10-17 11:57 | RAD_ITS ---
STUDY: X-RAY CHEST REASON FOR EXAM: Male, 76 years old. leg swelling, chf TECHNIQUE: Single AP portable view of the chest. COMPARISON: MAY 17, 2020 FINDINGS: Stable left chest cardiac device and leads. No visualized consolidation. The lungs are clear and expanded. There is no demonstrated pleural abnormality. Sternal cerclage wires and vascular clips are present from a prior sternotomy and coronary artery bypass graft procedure (CABG). The heart remains mildly enlarged. Normal mediastinum and patrice. Normal visualized pulmonary arteries. Normal visualized aortic arch and descending thoracic aorta. There are diffuse degenerative changes of the visualized thoracic spine. There is degenerative osteoarthritis of the bilateral shoulders. There is no demonstrated abnormality of the visualized soft tissue structures of the upper abdomen. RAD/Chest 1 View (Portable) IMPRESSION: Mild cardiomegaly Electronically Signed: Dakota Constantino MD at 12:53 EDT ,
--- NOTE | 2021-10-17 11:57 | US_ITS ---
STUDY: SCROTUM ULTRASOUND REASON FOR EXAM: Male, 76 years old. testicular and scrotal swelling TECHNIQUE: Ultrasound evaluation of the scrotum was performed with color Doppler and static pina-scale imaging. COMPARISON: None. FINDINGS: The scrotal tissues are diffusely swollen and edematous. RIGHT TESTICLE INTRATESTICULAR: There is a normal size of the right testicle. The right testicle measures 4.4 x 3.6 x 3.2 cm. There is a heterogeneous echotexture. There is increased arterial and increased venous vascularity. There is no demonstrated right testicular mass or cyst. EXTRATESTICULAR: The epididymis is normal in size. The epididymis head measures 1.3 x 2.0 x 1.5 cm. There is normal vascularity of the epididymis. There is no demonstrated epididymal cystic structure. There is a large complex septated hydrocele is present. There is no demonstrated varicocele. There is no demonstrated extratesticular mass or cyst. LEFT TESTICLE INTRATESTICULAR: There is a normal size of the left testicle. The left testicle measures 3.1 x 2.7 x 4.5 cm. There is a heterogeneous echotexture. There is increased arterial and increased venous vascularity. There is no demonstrated left testicular mass or cyst. EXTRATESTICULAR: The epididymis is normal in size. The epididymis head measures 1.2 x 1.5 x 1.6 cm. There is normal vascularity of the epididymis. There is no demonstrated epididymal cystic structure. There is a large hydrocele. There is no demonstrated varicocele. There is no demonstrated extratesticular mass or cyst. US/Testicular with Arterial Flow IMPRESSION: 1. Bilateral orchitis with heterogeneity of the testicles and hyperemic/increased vascular flow. 2. Large bilateral testicular hydroceles, with septations and complexity on the right. 3. Diffuse swelling and edema of the scrotal tissues Electronically Signed: Dakota Constantino MD at 14:11 EDT Reading Location ID and State: [id number] / [place] , Service support ,
--- NOTE | 2021-10-17 11:57 | EKG12_ITS ---
Test Reason : SOB Blood Pressure : / mmHG Vent. Rate : 061 BPM Atrial Rate : 061 BPM P-R Int : 218 ms QRS Dur : 122 ms QT Int : 464 ms P-R-T Axes : 070 128 095 degrees QTc Int : 467 ms Sinus rhythm with 1st degree A-V block Right bundle branch block Anterolateral infarct , age undetermined Abnormal ECG Confirmed by FILOMENA BRAVO, ZAC ([id number]), legal editor THOMAS FLORES ([id number]) on 10/19/2021 9:16:32 AM Referred By: DC Confirmed By:LUCIEN BUTT MD
[2021-10-17 12:01] LABS: Bacteria 0 SEEN /hpf (None Seen); Mucous, Urine 0 SEEN /hpf (<or=2+); Red Blood Cells-Urine 0 SEEN /hpf (0-5); Squamous Epithelial Cells - UA 0 SEEN /hpf (0-5); White Blood Cells 0 SEEN /hpf (0-5)
[2021-10-17 12:08] LABS: Color, Urine Yellow (Yellow); Glucose, Dipstick Normal (Normal); Ketone-Dipstick Negative (Negative); Leukocyte Esterase-Dipstick 100 /ul (Negative); Nitrite-Dipstick Negative (Negative); Occult Blood-Urine 10 /ul (Negative); Protein-Dipstick Negative (Negative); Specific Gravity, Urine 1.015 (1.002-1.030); Urine Bilirubin Dipstick Negative (Negative); Urine Clarity Clear (Clear); Urine Urobilinogen Normal (Normal)
[2021-10-17 12:35] LABS: Absolute Lymphocyte Count 1.61 X10^3/uL (0.83-4.51); Absolute Neutrophil Count 11.4 X10^3/uL (2.0-7.7); Basophil# 0.04 X10^3/uL; Basophil% 0.3 % (0-1); Eosinophil# 0.02 X10^3/uL; Eosinophils% 0.1 % (0-5); Hematocrit 39.6 % (40-54); Hemoglobin 12.9 g/dL (13.0-16.5); Lymphocyte # 1.61 X10^3/ul (0.83-4.51); Lymphocyte % 11.5 % (19-41); Mean Corp Hgb Conc 32.6 g/dL (32-36); Mean Corpuscular Hgb 30.2 pg (27.0-32.0); Mean Corpuscular Volume 92.7 fL (80-94); Mean Platelet Vol. 11.7 fl (6.2-12.0); Monocyte# 0.79 X10^3/uL; Monocyte% 5.6 % (0-10); NRBC Flagged by Analyzer 0 % (0-5); Neutrophil # 11.44 X10^3/uL (2.7-7.7); Neutrophil % 81.4 % (47-70); POSITIVE COUNT YES; Platelet Count 130 K/mm3 (150-450); RBC Distribution Width SD 51.2 fl (35.1-43.9); Red Blood Count 4.27 M/mm3 (4.6-6.2); White Blood Count 14.1 K/mm3 (4.4-11.0)
[2021-10-17 12:54] LABS: Anion Gap 6 (5-15); BUN 34 mg/dL (7-18); Calcium,Total 8.8 mg/dL (8.5-10.1); Chloride 107 mmol/L (98-107); Creatinine, Serum 2.13 mg/dL (0.70-1.30); EST Glomerular Filtration Rate 32 mL/min (>60); Est Glom Filt Rate - Afr Amer 39 mL/min (>60); Estimated Creatinine Clearance 21.14 ml/min; Glucose 117 mg/dL (74-106); Potassium 3.9 mmol/L (3.5-5.1); Sodium Level 141 mmol/L (136-145); Troponin-I HS (w/2H Reflex) 48 pg/mL (3.0-78.0)
[2021-10-17 12:55] LABS: BNP,B-Type NATRIURETIC PEPTIDE 361.8 pg/mL (0-100)
[2021-10-17 12:57] LABS: Differential Indicated SCAN CRITERIA MET
[2021-10-17 13:00] LABS: Differential Comment SCANNED
[2021-10-17 13:46] VITALS: BP 124/65; PULSE 66
--- NOTE | 2021-10-17 14:07 | ED.RN ---
Pt. requested to take home medication- Sinemet, Dr. Mariano approves and patient takes own medication at scheduled time. Pt also given sandwich at this time.
[2021-10-17 14:32] LABS: Reflex Troponin-HS? (from REC) Y
--- NOTE | 2021-10-17 14:56 | EX.ED.DYSGE1 ---
HPI History of Present Illness Chief Complaint: Complaint Informant: patient Onset/Context/Timing Location: testicles Current Severity: Moderate Associated Symptoms Associated Symptoms: dysuria Narrative Narrative: Patient presents for dysuria and frequency. He also reports testicular swelling. Going on for days. He said he had this before with an infection. He also reports that last week he sat down and caught his testicles between his leg and in the toilet seat. No blood thinners. No other associated symptoms. Recent Illness/Hospitalization: No PFSH PFS Medical History Arthritis Atrial fibrillation Back problem Bone fracture Carpal tunnel syndrome Congestive heart failure (CHF) Coronary artery disease Diabetes GERD (gastroesophageal reflux disease) Glaucoma Gout High cholesterol High triglycerides Hx of cataract Hypertension Kidney disease Myocardial infarct Vision problems Home Medications allopurinol 100 mg tablet 100 mg PO BIDCM 12/04/17 [History Last Taken Unknown] amlodipine 5 mg tablet (Norvasc) 10 mg PO DAILY 12/04/17 [History Last Taken Unknown] aspirin 81 mg tablet,delayed release 81 mg PO DAILY@0800 12/04/17 [History Last Taken Unknown] fluticasone propionate 110 mcg/actuation HFA aerosol inhaler (Flovent HFA) 1 puff inhalation BID 12/04/17 [History Last Taken Unknown] metoprolol succinate 100 mg tablet,extended release 24 hr (Toprol XL) 50 mg PO DAILY 12/04/17 [History Last Taken Unknown] brimonidine 0.2 % eye drops 1 drp ophthalmic (eye) BID glaucoma 12/05/17 [History Last Taken Unknown] furosemide 40 mg tablet See Rx Instructions .Route .COMPLEX 04/09/19 [History Last Taken Unknown] pantoprazole 40 mg tablet,delayed release 40 mg PO DAILY 04/13/21 [History Last Taken Unknown] potassium chloride 10 mEq tablet,extended release 10 meq PO DAILY 04/13/21 [History Last Taken Unknown] carbidopa 25 mg-levodopa 100 mg tablet (Sinemet) 2 tab PO .QID #240 tabs 08/03/21 [Rx Last Taken Unknown] Bilateral knee-high compression stockings (10-20) #2 ea 08/04/21 [Rx Last Taken Unknown] levofloxacin 500 mg tablet 500 mg PO DAILY #10 tabs 10/17/21 [Rx Last Taken Unknown] rosuvastatin 10 mg tablet 10 mg PO QHS 10/17/21 [History Last Taken Unknown] Allergy/AdvReac Type Severity Reaction Status Date / Time No Known Allergies Allergy Verified 10/17/21 11:25 Family History Other Alcoholism Bowel disease Colon cancer Diabetes Heart disease Myocardial infarction Parkinson disease Surgical History H/O heart artery stent History of carpal tunnel surgery History of left heart catheterization (11/22/19) Hx of CABG S/P placement of cardiac pacemaker Social History Smoking Status: Former smoker how long ago did patient quit smokin second hand exposure: No alcohol intake: current substance use type: does not use what type of physical activity do you participate in: none christoph/spiritism: Denominational seatbelt use: never ROS ROS ED Constitutional Constitutional ED: Denies chills Eyes Eyes: Denies blurry vision ENT ENT ED: Denies ear pain Cardiovascular Cardiovascular: Denies chest pain Respiratory/Chest Respiratory/Chest: Denies cough Gastrointestinal Gastrointestinal: Denies abdominal pain Genitourinary Genitourinary ED: Reports dysuria and urinary frequency; Denies hematuria Musculoskeletal Musculoskeletal: Denies arthralgias Integumentary Denies abscess Neurologic Neurologic: Denies headache(s) Psychiatric Psychiatric: Denies anxiety Endocrine Endocrinology: Denies cold intolerance Hematologic/Lymphatic Hematologic/Lymphatic: Denies easy bruising Allergic/Immunologic Allergic/Immunologic ED: Denies mouth swelling EXAM Physical Exam Const Vital Signs: 10/17/21 11:25 10/17/21 13:46 Temperature 97.5 F L Temperature Source Temporal Pulse Rate 58 L 66 Respiratory Rate 16 Blood Pressure 129/65 H 124/65 H Blood Pressure Mean 86 84 Pulse Ox 97 Oxygen Delivery Method Room Air Positive well nourished and well developed General Appearance ED: well developed HEENT Reports moist mucous membranes Eyes EOMs intact bilaterally Resp clear to auscultation bilaterally Cardio regular rate and regular rhythm GI normal to inspection, nondistended, normoactive bowel sounds Narrative: Scrotum slightly erythematous, hyperemic and edematous. Testicles are swollen bilaterally. Mildly tender. Neuro oriented x3 Sensorium / Orientation: alert Psych mental status grossly normal Skin no rashes or lesions noted MDM MDM MDM Narrative Medical decision making narrative: Patient declined pain medicine. Patient had a white count of 14. Otherwise CBC was stable. Creatinine 2.1, stable, glucose 170, urinalysis unremarkable. Ultrasound showed bilateral orchitis with increased hyperemic flow. Bilateral hydroceles noted, septated on the right. Scrotal edema noted. Family was also concerned that he has been complaining of increasing weight gain and edema lately. I did check an EKG, chest x-ray, and BNP. EKG showed sinus rhythm with a rate of 61. No sign of acute infarction. Chest x-ray was reviewed by the radiologist and myself and showed no acute abnormalities. Mild cardiomegaly. Patient has a leukocytosis but is not septic. I am concerned for possible infection, although his urinalysis was unremarkable. Cultures are pending. He was covered with Levaquin. No sign of necrosis, gangrene. I recommended discussing with a urologist, but we do not currently have one collection support specialist. I advised that I can call Juani or Katie or another urologist, and the patient declined. He would like to follow-up with Dr. Carlson this upcoming week. I believe this is reasonable. If he has new or worsening issues, he should return right away. Impression #1 bilateral orchitis Impression #2 bilateral hydroceles Impression #3 leukocytosis Impression #4 chronic kidney disease Lab Data Attestation: I reviewed the patient's lab results. Labs: Laboratory Results - last 24 hr 10/17/21 10/17/21 10/17/21 11:50 12:10 12:10 WBC 14.1 H RBC 4.27 L Hgb 12.9 L Hct 39.6 L MCV 92.7 MCH 30.2 MCHC 32.6 RDW Std Deviation 51.2 H RDW Coeff of Sammi 15.0 H Plt Count 130 L MPV 11.7 Immature Gran % (Auto) 1.100 H Neut % (Auto) 81.4 H Lymph % (Auto) 11.5 L [place] % (Auto) 5.6 Eos % (Auto) 0.1 Baso % (Auto) 0.3 Absolute Neuts (auto) 11.4 H Absolute Lymphs (auto) 1.61 Nucleated RBC % 0 Differential Comment SCANNED Sodium 141 Potassium 3.9 Chloride 107 Carbon Dioxide 28.0 Anion Gap 6 BUN 34 H Creatinine 2.13 H Estim Creat Clear Calc 21.14 Est GFR (MDRD) Af Amer 39 L Est GFR (MDRD) Non-Af 32 L BUN/Creatinine Ratio 16.0 Glucose 117 H Calcium 8.8 Troponin I High Sens 48 B-Natriuretic Peptide Urine Color Yellow Urine Clarity Clear Urine pH 6.0 Ur Specific [place] 1.015 Urine Protein Negative Urine Glucose (UA) Normal Urine Ketones Negative Urine Occult Blood 10 H Urine Nitrite Negative Urine Bilirubin Negative Urine Urobilinogen Normal Ur Leukocyte Esterase 100 H Urine RBC 0 SEEN Urine WBC 0 SEEN Ur Squamous Epith Cells 0 SEEN Urine Bacteria 0 SEEN Urine Mucus 0 SEEN 10/17/21 12:10 WBC RBC Hgb Hct MCV MCH MCHC RDW Std Deviation RDW Coeff of Sammi Plt Count MPV Immature Gran % (Auto) Neut % (Auto) Lymph % (Auto) [place] % (Auto) Eos % (Auto) Baso % (Auto) Absolute Neuts (auto) Absolute Lymphs (auto) Nucleated RBC % Differential Comment Sodium Potassium Chloride Carbon Dioxide Anion Gap BUN Creatinine Estim Creat Clear Calc Est GFR (MDRD) Af Amer Est GFR (MDRD) Non-Af BUN/Creatinine Ratio Glucose Calcium Troponin I High Sens B-Natriuretic Peptide 361.8 H Urine Color Urine Clarity Urine pH Ur Specific [place] Urine Protein Urine Glucose (UA) Urine Ketones Urine Occult Blood Urine Nitrite Urine Bilirubin Urine Urobilinogen Ur Leukocyte Esterase Urine RBC Urine WBC Ur Squamous Epith Cells Urine Bacteria Urine Mucus Radiography Diagnostic Testing: Clinical Impression(s) from Imaging Studies Chest X-Ray 10/17/21 11:57 IMPRESSION: Mild cardiomegaly Electronically Signed: Dakota Constantino MD at 12:53 EDT , Testicular Ultrasound 10/17/21 11:57 IMPRESSION: 1. Bilateral orchitis with heterogeneity of the testicles and hyperemic/increased vascular flow. 2. Large bilateral testicular hydroceles, with septations and complexity on the right. 3. Diffuse swelling and edema of the scrotal tissues Electronically Signed: Dakota Constantino MD at 14:11 EDT , Discharge Plan Triage Chief Complaint: Complaint ED Provider: Ilya Mariano Dx/Rx/DC Orders Instructions: ED Orchitis Prescriptions: New levofloxacin 500 mg tablet 500 mg PO DAILY Qty: 10 0RF No Action pantoprazole 40 mg tablet,delayed release (DR/EC) 40 mg PO DAILY potassium chloride 10 mEq tablet extended release 10 meq PO DAILY carbidopa-levodopa [Sinemet] 25-100 mg tablet 2 tab PO .QID Qty: 240 4RF (DME) Bilateral knee-high compression stockings (10-20) See Rx Instructions .Route .MEDSUPPLY Qty: 2 0RF Rx Instructions: As directed metoprolol succinate [Toprol XL] 100 MG tablet extended release 24 hr 50 mg PO DAILY amlodipine [Norvasc] 5 MG tablet 10 mg PO DAILY allopurinol 100 MG tablet 100 mg PO BIDCM aspirin 81 MG tablet 81 mg PO DAILY@0800 fluticasone propionate [Flovent HFA] 1 INHALER inhaler 1 puff inhalation BID brimonidine 0.2 % bottle 1 drp ophthalmic (eye) BID Rx Instructions: one drop to each eye twice a day furosemide 40 MG tablet See Rx Instructions .ROUTE .COMPLEX Rx Instructions: 1- 40mg tablet every morning, 1 additional 40mg tablet 3 times per week rosuvastatin 10 mg tablet 10 mg PO QHS Label Comments: TAKE ONE TABLET BY MOUTH AT BEDTIME Primary Care Provider: Yosvany Leon NP Referrals: Gamaliel Carlson MD [[facility] Staff - Active Staff] - Disposition Disposition: Home, Self Care
--- NOTE | 2021-10-17 15:17 | ED.RN ---
Pt discharged without receiving ordered PO dose of antibiotics, attempt to call phone number on file unsuccessful. Dr. Mariano aware, will attempt phone contact again.
== END 2021-10-17 15:18 | disposition home or self-care (01) ==
PROVIDERS: Emergency Provider Emergency Medicine; PCP Nurse Practitioner Family; Visit Provider Emergency Medicine
DX: N45.2 Orchitis (principal); I13.0 Hypertensive heart and chronic kidney disease with heart failure and stage 1 through stage 4 chronic kidney disease, or unspecified chronic kidney disease; I50.9 Heart failure, unspecified; E11.22 Type 2 diabetes mellitus with diabetic chronic kidney disease; I48.91 Unspecified atrial fibrillation; N43.3 Hydrocele, unspecified; N50.89 Other specified disorders of the male genital organs; I25.10 Atherosclerotic heart disease of native coronary artery without angina pectoris; N18.9 Chronic kidney disease, unspecified; E78.2 Mixed hyperlipidemia; R30.0 Dysuria; R35.0 Frequency of micturition; M19.90 Unspecified osteoarthritis, unspecified site; K21.9 Gastro-esophageal reflux disease without esophagitis; I25.2 Old myocardial infarction; Z79.82 Long term (current) use of aspirin; Z79.899 Other long term (current) drug therapy; Z95.5 Presence of coronary angioplasty implant and graft; Z87.891 Personal history of nicotine dependence
CPT/HCPCS: 71045; 76870; 80048; 81001; 83880; 84484; 85025; 87086; 87088; 93005; 93976; 99282; A4216

== ENCOUNTER → 2022-01-03 | Outpatient (CLI) | payer MEDICARE, OTHER, SELFPAY ==
[2022-01-03 18:35] LABS: Ferritin 49 ng/mL (26-388); Iron 51 ug/dL (65-175)
== END | disposition home or self-care (01) ==
LOC: MTLAB 15:56
PROVIDERS: PCP Nurse Practitioner Family; Referring Provider Psychiatry & Neurology Neurology; Visit Provider Psychiatry & Neurology Neurology
DX: Z86.2 Personal history of diseases of the blood and blood-forming organs and certain disorders involving the immune mechanism (principal)
CPT/HCPCS: 36415; 82728; 83540

== ENCOUNTER → 2022-02-28 | Outpatient (CLI) | payer MEDICARE, OTHER, SELFPAY ==
[2022-02-28 16:06] LABS: Hematocrit 39.7 % (40-54); Hemoglobin 12.4 g/dL (13.0-16.5); Mean Corp Hgb Conc 31.2 g/dL (32-36); Mean Corpuscular Hgb 29.4 pg (27.0-32.0); Mean Corpuscular Volume 94.1 fL (80-94); Platelet Count 162 K/mm3 (150-450); RBC Distribution Width CV 13.9 % (11.6-14.6); RBC Distribution Width SD 47.2 fl (35.1-43.9); Red Blood Count 4.22 M/mm3 (4.6-6.2); White Blood Count 7.7 K/mm3 (4.4-11.0)
[2022-02-28 16:56] LABS: Albumin, Serum 3.5 g/dL (3.2-5.0); BUN 26 mg/dL (7-18); BUN/Creat Ratio 12.3 RATIO (10-20); Calcium,Total 8.8 mg/dL (8.5-10.1); Chloride 108 mmol/L (98-107); Creatinine, Serum 2.12 mg/dL (0.70-1.30); EST Glomerular Filtration Rate 32 mL/min (>60); Est Glom Filt Rate - Afr Amer 39 mL/min (>60); Glucose 130 mg/dL (74-106); Phosphorus 3.2 mg/dL (2.5-4.9); Potassium 4.5 mmol/L (3.5-5.1); Sodium Level 142 mmol/L (136-145)
== END | disposition home or self-care (01) ==
LOC: LAB 15:49
PROVIDERS: PCP Nurse Practitioner Family; Referring Provider Internal Medicine Nephrology; Visit Provider Internal Medicine Nephrology
DX: N18.32 Chronic kidney disease, stage 3b (principal)
CPT/HCPCS: 36415; 80069; 85027

== ENCOUNTER → 2022-08-26 | Outpatient (CLI) | payer MEDICARE, OTHER, SELFPAY ==
[2022-08-26 12:00] LABS: Albumin, Serum 3.5 g/dL (3.2-5.0); BUN 30 mg/dL (7-18); BUN/Creat Ratio 12.9 RATIO (10-20); Calcium,Total 9.2 mg/dL (8.5-10.1); Chloride 111 mmol/L (98-107); Creatinine, Serum 2.32 mg/dL (0.70-1.30); EST Glomerular Filtration Rate 29 mL/min (>60); Est Glom Filt Rate - Afr Amer 35 mL/min (>60); Glucose 90 mg/dL (74-106); Potassium 5.2 mmol/L (3.5-5.1); Sodium Level 141 mmol/L (136-145)
== END | disposition home or self-care (01) ==
LOC: LAB 11:06
PROVIDERS: PCP Nurse Practitioner Family; Referring Provider Internal Medicine Nephrology; Visit Provider Internal Medicine Nephrology
DX: N18.32 Chronic kidney disease, stage 3b (principal)
CPT/HCPCS: 36415; 80069

== ENCOUNTER 2022-11-05 15:15 | Emergency (ER) | payer MEDICARE, OTHER, SELFPAY ==
[2022-11-05 15:17] VITALS: BP 126/59; PULSE 64; RESP 16; TEMP 36.6; O2SAT 97
--- NOTE | 2022-11-05 15:35 | RAD_ITS ---
INDICATION: cough EXAMINATION/TECHNIQUE: X-RAY - XR Chest 2 Views COMPARISON: 10/17/2021 FINDINGS: LINES/DEVICES: Stable transvenous pacemaker. LUNGS: No consolidation, edema or effusion. No pneumothorax. MEDIASTINUM AND CARDIOVASCULAR STRUCTURES: Cardiac silhouette not enlarged. Stable CABG changes. BONES AND SOFT TISSUES: No acute changes. RAD/Chest PA and Lateral IMPRESSION: No radiographic evidence of acute cardiopulmonary disease. Electronically Signed: Speedy Osullivan MD at 17:11 EDT ,
--- NOTE | 2022-11-05 15:36 | RAD_ITS ---
INDICATION: Trauma, fall EXAMINATION/TECHNIQUE: X-RAY - XR Spine Lumbar Min 4 Views COMPARISON: 12/04/2017 FINDINGS: VERTEBRAE: Preserved vertebral body height. No fracture. No spondylolisthesis. Preservation of the normal lumbar lordosis. DISCS: Disc spaces are maintained. INCLUDED ABDOMEN: Included bowel gas pattern is non-obstructive. RAD/L/S Spine Min 4 Views IMPRESSION: No acute bony injury. Electronically Signed: Speedy Osullivan MD at 17:19 EDT ,
--- NOTE | 2022-11-05 15:43 | EDS_ITS ---
HPI History of Present Illness Chief Complaint: Fall [facility] Medical History (Updated 10/27/22 @ 14:30 by Azalia Preston) Arthritis Atrial fibrillation Back problem Bone fracture Carpal tunnel syndrome Congestive heart failure (CHF) Coronary artery disease Diabetes Fatigue GERD (gastroesophageal reflux disease) Glaucoma Gout High cholesterol High triglycerides Hx of cataract Hypertension Kidney disease Myocardial infarct Vision problems Home Medications allopurinol 100 mg tablet 100 mg PO BIDCM 12/04/17 [History Last Taken Unknown] amlodipine 5 mg tablet (Norvasc) 10 mg PO DAILY 12/04/17 [History Last Taken Unknown] fluticasone propionate 110 mcg/actuation HFA aerosol inhaler (Flovent HFA) 1 puff inhalation BID 12/04/17 [History Last Taken Unknown] metoprolol succinate 100 mg tablet,extended release 24 hr (Toprol XL) 50 mg PO DAILY 12/04/17 [History Last Taken Unknown] pantoprazole 40 mg tablet,delayed release 40 mg PO DAILY 04/13/21 [History Last Taken Unknown] rosuvastatin 10 mg tablet 10 mg PO QHS 10/17/21 [History Last Taken Unknown] oxybutynin chloride 5 mg tablet 5 mg PO QHS #30 tabs 05/26/22 [Rx Last Taken Unknown] 4 Wheel rollator with seat and brakes #1 ea 10/27/22 [Rx Last Taken Unknown] carbidopa 25 mg-levodopa 100 mg tablet (Sinemet) 2 tab PO .QID #240 tabs 10/27/22 [Rx Last Taken Unknown] spironolactone 25 mg tablet 25 mg PO DAILY 10/27/22 [History Last Taken Unknown] torsemide 20 mg tablet 20 mg PO DAILY 10/27/22 [History Last Taken Unknown] Allergy/AdvReac Type Severity Reaction Status Date / Time No Known Allergies Allergy Verified 11/05/22 15:16 Family History Other Alcoholism Bowel disease Colon cancer Diabetes Heart disease Myocardial infarction Parkinson disease Surgical History H/O heart artery stent History of carpal tunnel surgery History of left heart catheterization (11/22/19) Hx of CABG S/P placement of cardiac pacemaker Social History Smoking Status: Former smoker how long ago did patient quit smokin second hand exposure: No alcohol intake: current substance use type: does not use what type of physical activity do you participate in: none christoph/faith: Sikhism seatbelt use: never EXAM Physical Exam Const Vital Signs: 11/05/22 15:17 Temperature 97.9 F Temperature Source Temporal Pulse Rate 64 Respiratory Rate 16 Blood Pressure 126/59 H Blood Pressure Mean 81 Pulse Ox 97 Oxygen Delivery Method Room Air Discharge Plan Triage Chief Complaint: Fall ED Midlevel Provider: Nahun Sterling ED Provider: Provider,Ed Physician Dx/Rx/DC Orders Prescriptions: No Action pantoprazole 40 mg tablet,delayed release (DR/EC) 40 mg PO DAILY oxybutynin chloride 5 mg tablet 5 mg PO QHS Qty: 30 6RF torsemide 20 mg tablet 20 mg PO DAILY spironolactone 25 mg tablet 25 mg PO DAILY (DME) 4 Wheel rollator with seat and brakes See Rx Instructions .Route .MEDSUPPLY Qty: 1 0RF Rx Instructions: As directed carbidopa-levodopa [Sinemet] 25-100 mg tablet 2 tab PO .QID Qty: 240 5RF metoprolol succinate [Toprol XL] 100 MG tablet extended release 24 hr 50 mg PO DAILY amlodipine [Norvasc] 5 MG tablet 10 mg PO DAILY allopurinol 100 MG tablet 100 mg PO BIDCM fluticasone propionate [Flovent HFA] 1 INHALER inhaler 1 puff inhalation BID rosuvastatin 10 mg tablet 10 mg PO QHS Patient Comments: TAKE ONE TABLET BY MOUTH AT BEDTIME Primary Care Provider: Yosvany Leon NP Referrals: Yosvany Leon NP, [employer] [Primary Care Provider] -
--- NOTE | 2022-11-05 15:43 | EDS_ITS ---
HPI <HUNTER Davila - Last Filed: 11/05/22 17:58> History of Present Illness Chief Complaint: Fall Narrative Narrative: Patient is a 77-year-old male with history of chronic kidney disease, CAD, hypertension, Parkinson's disease who presents to the emergency department after mechanical fall. Patient has periods where his legs just do not work, and he falls backwards. Patient states he fell today landing on his buttocks. However the states that she is concerned there might be a infectious etiology. Sometimes when the patient gets very weak, falls there is an infection. He did have a choking fit a couple days ago they are concerned for pneumonia or UTI. Patient also has been coughing over the last week. Denies any fever or chills however has felt warm at nighttime. Patient states to have pain is in the lower back, buttock area. He has no other injury [facility] <HUNTER Davila - Last Filed: 11/05/22 17:58> [facility] Medical History (Updated 11/05/22 @ 17:58 by HUNTER Davila) Arthritis Atrial fibrillation Back problem Bone fracture Carpal tunnel syndrome Congestive heart failure (CHF) Coronary artery disease Diabetes Fatigue GERD (gastroesophageal reflux disease) Glaucoma Gout High cholesterol High triglycerides Hx of cataract Hypertension Kidney disease Myocardial infarct Vision problems Home Medications allopurinol 100 mg tablet 100 mg PO BIDCM 12/04/17 [History Last Taken Unknown] amlodipine 5 mg tablet (Norvasc) 10 mg PO DAILY 12/04/17 [History Last Taken Unknown] fluticasone propionate 110 mcg/actuation HFA aerosol inhaler (Flovent HFA) 1 puff inhalation BID 12/04/17 [History Last Taken Unknown] metoprolol succinate 100 mg tablet,extended release 24 hr (Toprol XL) 50 mg PO DAILY 12/04/17 [History Last Taken Unknown] pantoprazole 40 mg tablet,delayed release 40 mg PO DAILY 04/13/21 [History Last Taken Unknown] rosuvastatin 10 mg tablet 10 mg PO QHS 10/17/21 [History Last Taken Unknown] oxybutynin chloride 5 mg tablet 5 mg PO QHS #30 tabs 05/26/22 [Rx Last Taken Unknown] 4 Wheel rollator with seat and brakes #1 ea 10/27/22 [Rx Last Taken Unknown] carbidopa 25 mg-levodopa 100 mg tablet (Sinemet) 2 tab PO .QID #240 tabs 10/27/22 [Rx Last Taken Unknown] spironolactone 25 mg tablet 25 mg PO DAILY 10/27/22 [History Last Taken Unknown] torsemide 20 mg tablet 20 mg PO DAILY 10/27/22 [History Last Taken Unknown] Allergy/AdvReac Type Severity Reaction Status Date / Time No Known Allergies Allergy Verified 11/05/22 15:16 Family History Other Alcoholism Bowel disease Colon cancer Diabetes Heart disease Myocardial infarction Parkinson disease Surgical History H/O heart artery stent History of carpal tunnel surgery History of left heart catheterization (11/22/19) Hx of CABG S/P placement of cardiac pacemaker Social History Smoking Status: Former smoker how long ago did patient quit smokin second hand exposure: No alcohol intake: current substance use type: does not use what type of physical activity do you participate in: none christoph/episcopal: Sabianist seatbelt use: never ROS <HUNTER Davila - Last Filed: 11/05/22 17:58> ROS ED ROS Narrative Constitutional: Negative for fever, chills, weight loss. Positive generalized weakness, Eyes: Negative for vision loss, vision change, double vision ENT: Negative for any sore throat, ear pain, congestion Cardiovascular: Negative for any chest pain, tightness, palpitations Respiratory: Negative for any cough, sputum production, hemoptysis, dyspnea, dyspnea on exertion, orthopnea Gastrointestinal: Negative for any abdominal pain, nausea, vomiting, diarrhea, constipation, blood in stool, blood in vomit : Negative for any urinary frequency, dysuria, retention, blood in urine Muscle skeletal: Negative for any muscle joint pain, stiffness, myalgias, arthralgias, neck pain. Positive for lower back pain, buttock pain Neurological: Negative for any headache, syncope, numbness or tingling, dizziness Skin: Negative for any rashes, lumps, itching, abrasions, lacerations Psychiatric: Negative for any depression, anxiety, stress, suicidal ideation, homicidal ideation Hematologic: Negative for any easy bruising, excessive bruising, easy bleeding Allergies: Negative for any eczema, hives, rash EXAM <HUNTER Davila - Last Filed: 11/05/22 17:58> Physical Exam Narrative Exam Narrative: Vital signs reviewed. Patient is alert and orient x4. Patient is no distress. HEET: Head normocephalic atraumatic, TMs clear bilaterally. Posterior pharynx is clear, moist mucous membranes. Nares clear bilaterally. Pupils are equal round reactive to light. Neck: Supple with no lymphadenopathy or tenderness. No signs of meningismus, negative jolt sign. Cardiac: Regular rate and rhythm no murmurs gallops or rubs, equal peripheral pulses bilaterally. Respiratory: Lungs clear to auscultation bilaterally. No chest tenderness. Abdomen: Soft, nontender, nondistended. No abdominal bruit or pulsatile masses. No hepatosplenomegaly Extremities: No peripheral edema, no signs of gross trauma or deformity. Active full range of motion of all extremities. Neuro: Cranial nerves II through XII intact, no focal neurological deficits. Skin: Clean dry and intact with no rash, purpura, petechiae, vesicles or pustules. Backs/flank: No CVA tenderness, no midline spinal tenderness, no deformity. Patient does have pain to the lower lumbar spine worse in the tailbone with palpation. No deformity, no ecchymosis. Psych: Normal mood and affect. No SI, HI or acute psychosis. Const Vital Signs: 11/05/22 15:17 11/05/22 15:57 11/05/22 17:40 Temperature 97.9 F Temperature Source Temporal Pulse Rate 64 Respiratory Rate 16 Respiratory Effort Normal Non-Labored Respiratory Depth Normal Respiratory Pattern Normal Blood Pressure 126/59 H Blood Pressure Mean 81 Pulse Ox 97 94 Oxygen Delivery Method Room Air Room Air <Dr. Brigido Herrera MD - Last Filed: 11/05/22 16:03> Physical Exam Const Vital Signs: 11/05/22 15:17 11/05/22 15:57 11/05/22 17:40 Temperature 97.9 F Temperature Source Temporal Pulse Rate 64 Respiratory Rate 16 Respiratory Effort Normal Non-Labored Respiratory Depth Normal Respiratory Pattern Normal Blood Pressure 126/59 H Blood Pressure Mean 81 Pulse Ox 97 94 Oxygen Delivery Method Room Air Room Air MDM <HUNTER Davila - Last Filed: 11/05/22 17:58> MDM Lab Data Labs: Laboratory Results - last 24 hr 11/05/22 16:05 WBC 7.3 RBC 4.22 L Hgb 12.4 L Hct 39.1 L MCV 92.7 MCH 29.4 MCHC 31.7 L RDW Std Deviation 50.1 H RDW Coeff of Sammi 14.8 H Plt Count 128 L MPV 12.1 H Immature Gran % (Auto) 0.400 Neut % (Auto) 70.0 Lymph % (Auto) 17.7 L Eagle % (Auto) 11.0 H Eos % (Auto) 0.5 Baso % (Auto) 0.4 Absolute Neuts (auto) 5.1 Absolute Lymphs (auto) 1.29 Nucleated RBC % 0 Sodium 136 Potassium 4.2 Chloride 107 Carbon Dioxide 23.0 Anion Gap 6 BUN 39 H Creatinine 2.25 H Estim Creat Clear Calc 19.69 Est GFR (MDRD) Af Amer 36 L Est GFR (MDRD) Non-Af 30 L BUN/Creatinine Ratio 17.3 Glucose 116 H Calcium 8.6 Urine Color Yellow Urine Clarity Clear Urine pH 5.0 Ur Specific [place] 1.020 Urine Protein 30 H Urine Glucose (UA) Normal Urine Ketones 5 H Urine Occult Blood 25 H Urine Nitrite Negative Urine Bilirubin Negative Urine Urobilinogen 1 H Ur Leukocyte Esterase Negative Urine RBC 0-5 SEEN Urine WBC 0-5 SEEN Ur Squamous Epith Cells 5-10 SEEN Urine Bacteria 0 SEEN Hyaline Casts 0-5 SEEN Urine Mucus 0 SEEN Radiography Diagnostic Testing: Clinical Impression(s) from Imaging Studies Chest X-Ray 11/05/22 15:35 IMPRESSION: No radiographic evidence of acute cardiopulmonary disease. Electronically Signed: Speedy Osullivan MD at 17:11 EDT , Lumbar Spine X-Ray 11/05/22 15:36 IMPRESSION: No acute bony injury. Electronically Signed: Speedy Osullivan MD at 17:19 EDT , Hip/Pelvis X-Ray 11/05/22 15:58 IMPRESSION: No evidence of displaced pelvic or hip fracture. Electronically Signed: Speedy Osullivan MD at 17:14 EDT , Treatment and Re-Evaluation :: Patient appears alert and oriented, patient presents the emergency department after mechanical fall concern for weakness secondary to infection. Patient will receive basic laboratory values, to ensure no leukocytosis, electrolyte abnormality. Will receive an x-ray of the lower lumbar spine to ensure there is no fracture or compression fracture. Patient will receive a chest x-ray two- view to ensure there is no pneumonia. Patient received a rapid COVID and flu. Urinalysis also be completed concerning for UTI. All radiologic examinations were read, reviewed by the emergency department attending. From these reads, a plan of care will be put in place. Patient laboratory values showed a normal CBC which is baseline. Patient's creatinine was elevated at 2.25 however this is patient's baseline since July 2021. Patient's urinalysis was negative for any infection. X-rays of the hip and pelvis were unremarkable, lumbar spine were unremarkable. Chest x-ray was unremarkable. All radiologic examinations were read, reviewed by the emergency department attending. From these reads, a plan of care will be put in place. Patient's COVID-19, influenza test was positive for COVID-19. This does explain the patient's weakness, as well as a cough and congestion. Patient will be ambulated with a pulse ox to ensure he is able to go home. On reevaluation, the patient was doing well, walking with his walker. Patient remained around 97%. He is instructed to follow-up with his PCP. He was given strict return precaution to return for any increase shortness of breath fever chills nausea vomiting. Patient is stable for discharge <Dr. Brigido Herrera MD - Last Filed: 11/05/22 16:03> [facility] Narrative Medical decision making narrative: I have personally performed a face to face assessment of the patient and have reviewed the ASHLIE Note. I performed a substantive portion of the visit including all aspects of the following. My ren findings include: History is [77-year-old male 2 falls the last 24 hours. Recent coughing spell. No vomiting or diarrhea. No dysuria. Family states that he has Parkinson disease and sometimes falls and other times he falls Due to generalized weakness because of infection. No known fever.] Exam is [appearing 77-year-old male. Vital signs stable afebrile. Does not look septic or toxic. No distress. H EENT exam unremarkable atraumatic. Moist mucous membranes. Lungs to auscultation bilaterally. Heart regular rhythm no murmur. Chest wall and ribs nontender. Soft nontender. Girdle intact. Mild tenderness right hip but no shortening or deformity. Some discomfort with active range of motion of his hip. Both lower extremities are nontender with trace edema. Upper extremities are nontender without deformity. 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 Back his cervical, thoracic and lumbar spine are nontender except down near his tailbone. There is no bruising or trauma. Neurologically he is awake and alert with no focal motor deficits.] Medical Decision Making [7-year-old fall family wants to make sure he did not have an infection. We will also obtain an x-ray of his lumbar spine and pelvis to rule out any type of fracture. He had no significant head injury. Other than aspirin he is on no other blood thinners.] Other additions or changes: [None] History & Record Review Discussion w/independent historian: Patient Lab Data Attestation: I reviewed the patient's lab results. Labs: Laboratory Results - last 24 hr 11/05/22 16:05 WBC 7.3 RBC 4.22 L Hgb 12.4 L Hct 39.1 L MCV 92.7 MCH 29.4 MCHC 31.7 L RDW Std Deviation 50.1 H RDW Coeff of Sammi 14.8 H Plt Count 128 L MPV 12.1 H Immature Gran % (Auto) 0.400 Neut % (Auto) 70.0 Lymph % (Auto) 17.7 L [place] % (Auto) 11.0 H Eos % (Auto) 0.5 Baso % (Auto) 0.4 Absolute Neuts (auto) 5.1 Absolute Lymphs (auto) 1.29 Nucleated RBC % 0 Sodium 136 Potassium 4.2 Chloride 107 Carbon Dioxide 23.0 Anion Gap 6 BUN 39 H Creatinine 2.25 H Estim Creat Clear Calc 19.69 Est GFR (MDRD) Af Amer 36 L Est GFR (MDRD) Non-Af 30 L BUN/Creatinine Ratio 17.3 Glucose 116 H Calcium 8.6 Urine Color Yellow Urine Clarity Clear Urine pH 5.0 Ur Specific [place] 1.020 Urine Protein 30 H Urine Glucose (UA) Normal Urine Ketones 5 H Urine Occult Blood 25 H Urine Nitrite Negative Urine Bilirubin Negative Urine Urobilinogen 1 H Ur Leukocyte Esterase Negative Urine RBC 0-5 SEEN Urine WBC 0-5 SEEN Ur Squamous Epith Cells 5-10 SEEN Urine Bacteria 0 SEEN Hyaline Casts 0-5 SEEN Urine Mucus 0 SEEN Radiography Diagnostic Testing: Clinical Impression(s) from Imaging Studies Chest X-Ray 11/05/22 15:35 IMPRESSION: No radiographic evidence of acute cardiopulmonary disease. Electronically Signed: Speedy Osullivan MD at 17:11 EDT , Lumbar Spine X-Ray 11/05/22 15:36 IMPRESSION: No acute bony injury. Electronically Signed: Speedy Osullivan MD at 17:19 EDT , Hip/Pelvis X-Ray 11/05/22 15:58 IMPRESSION: No evidence of displaced pelvic or hip fracture. Electronically Signed: Speedy Osullivan MD at 17:14 EDT , Discharge Plan Triage Chief Complaint: Fall ED Midlevel Provider: Nahun Sterling ED Provider: Brigido Herrera Dx/Rx/DC Orders Clinical Impression: COVID-19, Lumbar contusion, Fall Instructions: Caring for Someone Who Has COVID-19 Prescriptions: No Action pantoprazole 40 mg tablet,delayed release (DR/EC) 40 mg PO DAILY oxybutynin chloride 5 mg tablet 5 mg PO QHS Qty: 30 6RF torsemide 20 mg tablet 20 mg PO DAILY spironolactone 25 mg tablet 25 mg PO DAILY (DME) 4 Wheel rollator with seat and brakes See Rx Instructions .Route .MEDSUPPLY Qty: 1 0RF Rx Instructions: As directed carbidopa-levodopa [Sinemet] 25-100 mg tablet 2 tab PO .QID Qty: 240 5RF metoprolol succinate [Toprol XL] 100 MG tablet extended release 24 hr 50 mg PO DAILY amlodipine [Norvasc] 5 MG tablet 10 mg PO DAILY allopurinol 100 MG tablet 100 mg PO BIDCM fluticasone propionate [Flovent HFA] 1 INHALER inhaler 1 puff inhalation BID rosuvastatin 10 mg tablet 10 mg PO QHS Patient Comments: TAKE ONE TABLET BY MOUTH AT BEDTIME Primary Care Provider: Yosvany Leon NP Referrals: Yosvany Leon NP, [employer] [Primary Care Provider] - Activity Restrictions/Additional Instructions: Please maintain hydration, continue to eat and drink. Return for any worsening symptoms, fever, chills, shortness of breath Disposition Disposition: Home, Self Care
[2022-11-05 15:57] VITALS: BMI 39.3
--- NOTE | 2022-11-05 15:58 | RAD_ITS ---
INDICATION: Trauma, fall EXAMINATION/TECHNIQUE: X-RAY - XR Hip Unilateral with Pelvis when performed; 2-3 Views COMPARISON: Prior study dated: 12/04/2017 FINDINGS: PELVIC BONES: No displaced fracture, destructive or sclerotic lesions. Note that overlapping bowel shadows may however obscure fine detail. Sacroiliac joints are unremarkable. No widening of the pubic symphysis. HIPS: Hip joint spaces well-maintained bilaterally. No acute fracture. SOFT TISSUES: No soft tissue swelling or gas. RAD/HIP, UNI W/ Pelvis 2-3 Views IMPRESSION: No evidence of displaced pelvic or hip fracture. Electronically Signed: Speedy Osullivan MD at 17:14 EDT ,
[2022-11-05 16:11] LABS: Bacteria 0 SEEN /hpf (None Seen); Mucous, Urine 0 SEEN /hpf (<or=2+)
[2022-11-05 16:14] LABS: Absolute Lymphocyte Count 1.29 X10^3/uL (0.83-4.51); Absolute Neutrophil Count 5.1 X10^3/uL (2.0-7.7); Basophil# 0.03 X10^3/uL; Basophil% 0.4 % (0-1); Eosinophil# 0.04 X10^3/uL; Eosinophils% 0.5 % (0-5); Hematocrit 39.1 % (40-54); Hemoglobin 12.4 g/dL (13.0-16.5); Lymphocyte # 1.29 X10^3/ul (0.83-4.51); Lymphocyte % 17.7 % (19-41); Mean Corp Hgb Conc 31.7 g/dL (32-36); Mean Corpuscular Hgb 29.4 pg (27.0-32.0); Mean Corpuscular Volume 92.7 fL (80-94); Mean Platelet Vol. 12.1 fl (6.2-12.0); NRBC Flagged by Analyzer 0 % (0-5); Neutrophil # 5.11 X10^3/uL (2.7-7.7); Platelet Count 128 K/mm3 (150-450); RBC Distribution Width CV 14.8 % (11.6-14.6); RBC Distribution Width SD 50.1 fl (35.1-43.9); Red Blood Count 4.22 M/mm3 (4.6-6.2); White Blood Count 7.3 K/mm3 (4.4-11.0)
[2022-11-05 16:19] LABS: Color, Urine Yellow (Yellow); Glucose, Dipstick Normal (Normal); Ketone-Dipstick 5 mg/dl (Negative); Leukocyte Esterase-Dipstick Negative /ul (Negative); Nitrite-Dipstick Negative (Negative); Occult Blood-Urine 25 /ul (Negative); Protein-Dipstick 30 mg/dl (Negative); Urine Bilirubin Dipstick Negative (Negative); Urine Clarity Clear (Clear); Urine Urobilinogen 1 mg/dl (Normal)
[2022-11-05 16:26] LABS: Anion Gap 6 (5-15); BUN 39 mg/dL (7-18); BUN/Creat Ratio 17.3 RATIO (10-20); Calcium,Total 8.6 mg/dL (8.5-10.1); Chloride 107 mmol/L (98-107); Creatinine, Serum 2.25 mg/dL (0.70-1.30); EST Glomerular Filtration Rate 30 mL/min (>60); Est Glom Filt Rate - Afr Amer 36 mL/min (>60); Estimated Creatinine Clearance 19.69 ml/min; Glucose 116 mg/dL (74-106); Potassium 4.2 mmol/L (3.5-5.1); Sodium Level 136 mmol/L (136-145)
[2022-11-05 16:39] LABS: Hyaline Cast 0-5 SEEN /lpf (0-5); Squamous Epithelial Cells - UA 5-10 SEEN /hpf (0-5); White Blood Cells 0-5 SEEN /hpf (0-5)
[2022-11-05 16:40] LABS: Red Blood Cells-Urine 0-5 SEEN /hpf (0-5)
[2022-11-05 17:40] VITALS: O2SAT 94
[2022-11-05 17:51] VITALS: O2SAT 93
== END 2022-11-05 18:12 | disposition home or self-care (01) ==
PROVIDERS: Nurse Practitioner; Emergency Provider Emergency Medicine; PCP Nurse Practitioner Family; Visit Provider Emergency Medicine
DX: U07.1 COVID-19 (principal); G20 Parkinson's disease; I50.9 Heart failure, unspecified; I13.0 Hypertensive heart and chronic kidney disease with heart failure and stage 1 through stage 4 chronic kidney disease, or unspecified chronic kidney disease; E11.22 Type 2 diabetes mellitus with diabetic chronic kidney disease; I48.91 Unspecified atrial fibrillation; S30.0XXA Contusion of lower back and pelvis, initial encounter; M25.551 Pain in right hip; W19.XXXA Unspecified fall, initial encounter; N18.9 Chronic kidney disease, unspecified; E78.00 Pure hypercholesterolemia, unspecified; I25.10 Atherosclerotic heart disease of native coronary artery without angina pectoris; Z79.899 Other long term (current) drug therapy; Z87.891 Personal history of nicotine dependence
CPT/HCPCS: 71046; 72110; 73502; 80048; 81001; 85025; 87428; 99282; A4216

== ENCOUNTER 2023-03-25 11:11 | Emergency (ER) | payer MEDICARE, OTHER, SELFPAY ==
[2023-03-25 11:12] VITALS: BP 124/59; PULSE 66; RESP 14; TEMP 36.4; O2SAT 100; BMI 36.6
--- NOTE | 2023-03-25 11:30 | RAD_ITS ---
INDICATION: cough EXAMINATION/TECHNIQUE: X-RAY - XR Chest 1 View COMPARISON: Prior study dated: 11/05/2022 FINDINGS: LINES/DEVICES: Left-sided cardiac pacer device in stable position. LUNGS: No consolidation, edema or effusion. No pneumothorax. MEDIASTINUM AND CARDIOVASCULAR STRUCTURES: Borderline cardiac silhouette. Status post median sternotomy. BONES AND SOFT TISSUES: Unchanged osseous structures. RAD/Chest 1 View (Portable) IMPRESSION: No radiographic evidence of acute cardiopulmonary disease. Electronically Signed: Jeison Norwood MD at 12:32 EST ,
--- NOTE | 2023-03-25 11:32 | EX.ED.DYSGE1 ---
HPI <HUNTER Davila - Last Filed: 03/25/23 13:37> History of Present Illness Chief Complaint: Palpitations Narrative Narrative: Patient is a 77-year-old male with history of CAD, triple bypass, CKD, history of heart failure diabetes who presents to the emerged department for laboratory values. Patient is here with his daughter, the daughter was told that the patient is showing some intermittent A-fib, they want to put the patient on a blood thinner however they do not have recent labs. She was given an order however the places are not open so she is here for evaluation. Patient does not take his Lasix as prescribed however the patient denies any chest pain or shortness of breath at this time. Per the daughter, he just wants some blood work. Patient sees Dr. Johnson at [facility] cardiology group here in [place]. [facility] <HUNTER Davila - Last Filed: 03/25/23 13:37> [facility] Medical History (Updated 03/25/23 @ 13:37 by HUNTER Davila) Arthritis Atrial fibrillation Back problem Bone fracture Carpal tunnel syndrome Congestive heart failure (CHF) Coronary artery disease Diabetes Fatigue GERD (gastroesophageal reflux disease) Glaucoma Gout High cholesterol High triglycerides Hx of cataract Hypertension Kidney disease Myocardial infarct Vision problems Home Medications allopurinol 100 mg tablet 100 mg PO BIDCM 12/04/17 [History Last Taken Unknown] amlodipine 5 mg tablet (Norvasc) 10 mg PO DAILY 12/04/17 [History Last Taken Unknown] fluticasone propionate 110 mcg/actuation HFA aerosol inhaler (Flovent HFA) 1 puff inhalation BID 12/04/17 [History Last Taken Unknown] metoprolol succinate 100 mg tablet,extended release 24 hr (Toprol XL) 50 mg PO DAILY 12/04/17 [History Last Taken Unknown] pantoprazole 40 mg tablet,delayed release 40 mg PO DAILY 04/13/21 [History Last Taken Unknown] rosuvastatin 10 mg tablet 10 mg PO QHS 10/17/21 [History Last Taken Unknown] 4 Wheel rollator with seat and brakes #1 ea 10/27/22 [Rx Last Taken Unknown] carbidopa 25 mg-levodopa 100 mg tablet (Sinemet) 2 tab PO .QID #240 tabs 10/27/22 [Rx Last Taken Unknown] spironolactone 25 mg tablet 25 mg PO DAILY 10/27/22 [History Last Taken Unknown] torsemide 20 mg tablet 20 mg PO DAILY 10/27/22 [History Last Taken Unknown] oxybutynin chloride 5 mg tablet 5 mg PO QHS #30 tabs 12/12/22 [Rx Last Taken Unknown] Allergy/AdvReac Type Severity Reaction Status Date / Time No Known Allergies Allergy Verified 03/25/23 11:12 Family History Other Alcoholism Bowel disease Colon cancer Diabetes Heart disease Myocardial infarction Parkinson disease Surgical History H/O heart artery stent History of carpal tunnel surgery History of left heart catheterization (11/22/19) Hx of CABG S/P placement of cardiac pacemaker Social History Smoking Status: Former smoker how long ago did patient quit smokin second hand exposure: No alcohol intake: current substance use type: does not use what type of physical activity do you participate in: none christoph/roman catholic: Taoist seatbelt use: never ROS <HUNTER Davila - Last Filed: 03/25/23 13:37> ROS ED ROS Narrative Constitutional: No fever, no chills. HEENT: No sore throat. No neck pain. No loss of vision. No rhinorrhea. Cardiovascular: No chest pain. No palpitations. No pedal edema. Respiratory: No cough, no shortness of breath. Patient complains of some shortness of breath worse on exertion. Abdominal: No abdominal pain. No nausea. No vomiting. Genitourinary: No dysuria. No hematuria. Musculoskeletal: No myalgias. No arthralgias. Neurologic: No headaches. No dizziness. No lightheadedness. Skin: No rash. No change in color. Psychiatric: No depression. No anxiety. EXAM <HUNTER Davila - Last Filed: 03/25/23 13:37> Physical Exam Narrative Exam Narrative: Afebrile. Vital signs noted. HEENT: Normocephalic. Atraumatic. PERRL, EOMI. Neck soft and supple. No point tenderness or step off. Cardiovascular: Regular rate and rhythm. No murmurs, rubs, or gallops appreciated. Respiratory: No tachypnea. Lungs clear to auscultation bilaterally. Gastrointestinal: Abdomen soft, nontender, with normoactive bowel sounds. No rebound or guarding. Neurological: Awake. Alert. Nonfocal, nonlateralizing. Skin: No rash. Normal color. No pallor. Musculoskeletal: Patient has +2 pitting edema to the right leg, +1 pitting edema to the left leg. The right leg is more edematous, this is secondary to surgery secondary to his open heart. This is a normal finding. Full range of motion extremities. Const Vital Signs: 03/25/23 11:12 03/25/23 11:39 03/25/23 11:39 Temperature 97.6 F L Temperature Source Temporal Pulse Rate 66 69 Respiratory Rate 14 18 Respiratory Effort Normal Non-Labored Blood Pressure 124/59 H Blood Pressure Mean 80 Pulse Ox 100 97 Oxygen Delivery Method Room Air Room Air 03/25/23 13:46 Temperature Temperature Source Pulse Rate 69 Respiratory Rate 14 Respiratory Effort Blood Pressure 132/67 H Blood Pressure Mean 88 Pulse Ox 96 Oxygen Delivery Method Positive well nourished and well developed General Appearance ED: well developed <Dr. Jules Aparicio MD - Last Filed: 03/25/23 20:01> Physical Exam Const Vital Signs: 03/25/23 11:12 03/25/23 11:39 03/25/23 11:39 Temperature 97.6 F L Temperature Source Temporal Pulse Rate 66 69 Respiratory Rate 14 18 Respiratory Effort Normal Non-Labored Blood Pressure 124/59 H Blood Pressure Mean 80 Pulse Ox 100 97 Oxygen Delivery Method Room Air Room Air 03/25/23 13:46 Temperature Temperature Source Pulse Rate 69 Respiratory Rate 14 Respiratory Effort Blood Pressure 132/67 H Blood Pressure Mean 88 Pulse Ox 96 Oxygen Delivery Method MDM <HUNTER Davila - Last Filed: 03/25/23 13:37> [facility] Lab Data Labs: Laboratory Results - last 24 hr 03/25/23 11:44 WBC 9.2 RBC 4.49 L Hgb 13.4 Hct 41.6 MCV 92.7 MCH 29.8 MCHC 32.2 RDW Std Deviation 47.8 H RDW Coeff of Sammi 14.2 Plt Count 162 MPV 11.9 Immature Gran % (Auto) 0.500 Neut % (Auto) 62.3 Lymph % (Auto) 25.4 Mathews % (Auto) 8.6 Eos % (Auto) 2.7 Baso % (Auto) 0.5 Absolute Neuts (auto) 5.8 Absolute Lymphs (auto) 2.34 Nucleated RBC % 0 PT 13.7 INR 1.1 Sodium 141 Potassium 4.9 Chloride 110 H Carbon Dioxide 27.0 Anion Gap 4 L BUN 40 H Creatinine 2.19 H Estim Creat Clear Calc 25.76 Est GFR (MDRD) Af Amer 38 L Est GFR (MDRD) Non-Af 31 L BUN/Creatinine Ratio 18.3 Glucose 111 H Calcium 9.1 Total Bilirubin 0.70 AST 10 L ALT 13 L Alkaline Phosphatase 102 Total Protein 7.0 Albumin 3.7 Globulin 3.3 Albumin/Globulin Ratio 1.1 Radiography Diagnostic Testing: Clinical Impression(s) from Imaging Studies Chest X-Ray 03/25/23 11:30 IMPRESSION: No radiographic evidence of acute cardiopulmonary disease. Electronically Signed: Jeison Norwood MD at 12:32 EST , EKG EKG shows a sinus rhythm with first-degree AV block,: Attestation: I personally reviewed and interpreted this EKG as follows: Comments: Sinus rhythm with first-degree AV block, rate of 71 bpm, CT interval 256 ms, QRS duration 124 ms, no acute ST elevation, no acute infarct noted. Treatment and Re-Evaluation :: Patient is no obvious distress, vital signs are stable. Presenting to the emerged department with complaints of needing blood work to possibly be placed on a blood thinner secondary to intermittent atrial fibrillation. Patient differential diagnosis includes A-fib, pulmonary embolus, CHF, CAD or DC. Patient currently has no shortness of breath, no chest pain. Patient is asymptomatic at this time. Patient's EKG did show sinus rhythm with first-degree AV block, the CT interval is 256 ms, there is no evidence of any atrial fibrillation at this time. Patient's lung sounds are clear. Patient received some basic laboratory values. Patient's radiologic exams are interpreted by the emergency department attending, from these reads, a plan of care will be put in place. The radiology exams ordered for this patient will be read by the emergency department attending. From these reads a plan of care will be put into place. Patient's laboratory values show a normal CBC, patient's chemistries show chronic renal insufficiency with a creatinine of 2.19, this is baseline since July 2021. I was able to reach out to Dr. Olivera who is [facility] cardiology, I went over with him the patient HPI as well as the patient's laboratory values. At this time, patient will be given his lab values and will call Dr. Fernández office in on Monday morning and go from there. I spoke with the patient and the patient's daughter they are happy with the plan of care, given return precautions. Patient stable for discharge. <Dr. Jules Aparicio MD - Last Filed: 03/25/23 20:01> [facility] MDM Narrative Medical decision making narrative: I have personally performed a face to face assessment of the patient and have reviewed the ASHLIE Note. I performed a substantive portion of the visit including all aspects of the following. My ren findings include: History: Patient is here for outpatient blood work. The plan was to start anticoagulation due to a suspected history of intermittent atrial fibrillation. Patient has no symptoms and here. He is here because they could not find anyplace else open to get the blood work. Exam: Patient is in no acute distress. Heart does sound regular. His lungs are clear. Saturations are good. He is nontoxic. In fact, his only complaint is that he would like something to eat. Medical Decision Making: We will do blood work and contact his physician. Lab Data Labs: Laboratory Results - last 24 hr 03/25/23 11:44 WBC 9.2 RBC 4.49 L Hgb 13.4 Hct 41.6 MCV 92.7 MCH 29.8 MCHC 32.2 RDW Std Deviation 47.8 H RDW Coeff of Sammi 14.2 Plt Count 162 MPV 11.9 Immature Gran % (Auto) 0.500 Neut % (Auto) 62.3 Lymph % (Auto) 25.4 Mathews % (Auto) 8.6 Eos % (Auto) 2.7 Baso % (Auto) 0.5 Absolute Neuts (auto) 5.8 Absolute Lymphs (auto) 2.34 Nucleated RBC % 0 PT 13.7 INR 1.1 Sodium 141 Potassium 4.9 Chloride 110 H Carbon Dioxide 27.0 Anion Gap 4 L BUN 40 H Creatinine 2.19 H Estim Creat Clear Calc 25.76 Est GFR (MDRD) Af Amer 38 L Est GFR (MDRD) Non-Af 31 L BUN/Creatinine Ratio 18.3 Glucose 111 H Calcium 9.1 Total Bilirubin 0.70 AST 10 L ALT 13 L Alkaline Phosphatase 102 Total Protein 7.0 Albumin 3.7 Globulin 3.3 Albumin/Globulin Ratio 1.1 Radiography Diagnostic Testing: Clinical Impression(s) from Imaging Studies Chest X-Ray 03/25/23 11:30 IMPRESSION: No radiographic evidence of acute cardiopulmonary disease. Electronically Signed: Jeison Norwood MD at 12:32 EST , Discharge Plan Triage Chief Complaint: Palpitations ED Midlevel Provider: Nahun Sterling ED Provider: Jules Aparicio Dx/Rx/DC Orders Clinical Impression: AF (paroxysmal atrial fibrillation) Instructions: AFib Prescriptions: No Action pantoprazole 40 mg tablet,delayed release (DR/EC) 40 mg PO DAILY torsemide 20 mg tablet 20 mg PO DAILY spironolactone 25 mg tablet 25 mg PO DAILY (DME) 4 Wheel rollator with seat and brakes See Rx Instructions .Route .MEDSUPPLY Qty: 1 0RF Rx Instructions: As directed carbidopa-levodopa [Sinemet] 25-100 mg tablet 2 tab PO .QID Qty: 240 5RF metoprolol succinate [Toprol XL] 100 MG tablet extended release 24 hr 50 mg PO DAILY amlodipine [Norvasc] 5 MG tablet 10 mg PO DAILY allopurinol 100 MG tablet 100 mg PO BIDCM fluticasone propionate [Flovent HFA] 1 INHALER inhaler 1 puff inhalation BID rosuvastatin 10 mg tablet 10 mg PO QHS Patient Comments: TAKE ONE TABLET BY MOUTH AT BEDTIME oxybutynin chloride 5 mg tablet 5 mg PO QHS Qty: 30 4RF Primary Care Provider: ROCAEL RIBEIRO RN Referrals: Yosvany Leon RESIDENTIAL CARE OFFICER, RESIDENTIAL CARE OFFICER-C [Non-Staff] - Activity Restrictions/Additional Instructions: Please follow-up outpatient, you need to follow-up with Dr. Fernández on Monday with your lab values. Disposition Disposition: Home, Self Care Discharge Date/Time: 03/25/23 13:47
[2023-03-25 11:39] VITALS: PULSE 69; RESP 18; O2SAT 97
[2023-03-25 11:53] LABS: Absolute Lymphocyte Count 2.34 X10^3/uL (0.83-4.51); Absolute Neutrophil Count 5.8 X10^3/uL (2.0-7.7); Basophil# 0.05 X10^3/uL; Basophil% 0.5 % (0-1); Eosinophil# 0.25 X10^3/uL; Eosinophils% 2.7 % (0-5); Hematocrit 41.6 % (40-54); Hemoglobin 13.4 g/dL (13.0-16.5); Lymphocyte # 2.34 X10^3/ul (0.83-4.51); Lymphocyte % 25.4 % (19-41); Mean Corp Hgb Conc 32.2 g/dL (32-36); Mean Corpuscular Hgb 29.8 pg (27.0-32.0); Mean Corpuscular Volume 92.7 fL (80-94); Mean Platelet Vol. 11.9 fl (6.2-12.0); Monocyte# 0.79 X10^3/uL; Monocyte% 8.6 % (0-10); NRBC Flagged by Analyzer 0 % (0-5); Neutrophil # 5.75 X10^3/uL (2.7-7.7); Neutrophil % 62.3 % (47-70); Platelet Count 162 K/mm3 (150-450); RBC Distribution Width CV 14.2 % (11.6-14.6); RBC Distribution Width SD 47.8 fl (35.1-43.9); Red Blood Count 4.49 M/mm3 (4.6-6.2); White Blood Count 9.2 K/mm3 (4.4-11.0)
--- OUTSIDE RECORDS SUMMARY | 2023-03-25 11:56 | XMS RPT_ITS | CCD ---
Author Name Unknown Address [address] [place] [address] Organization [facility] Care Team Providers Care Logistics Solution Manager Name Role Phone Unavailable Primary Care Provider UnavailJuliet Ivy Primary Care Provider CASA IRVIN MD Attending Unavailable CASA IRVIN MD Primary Care Unavailable CASA IRVIN MD Admitting Unavailable Heljenniferer OCCUPATIONAL THERAPY DEPARTMENT CHAIR, Yosvany Costello Primary Care Provider Juliet Johnson MD Unavailable [phone] Heljenniferer OCCUPATIONAL THERAPY DEPARTMENT CHAIR, Yosvany Costello Primary Care Provider Juliet Johnson MD Unavailable [phone] Hellinger OCCUPATIONAL THERAPY DEPARTMENT CHAIR, Yosvany Costello Primary Care Provider Juliet Johnson MD Unavailable [phone] Helkell CONNOLLY, Yosvany Costello Primary Care Provider Juliet Johnson MD Unavailable Helling OCCUPATIONAL THERAPY DEPARTMENT CHAIR, Montserrat Costello Primary Care Provider Juliet Boss Primary Care Provider Juliet Boss Primary Care Provider Juliet Boss MD Primary Care Provider JULIET JOHNSON Admitting Unavailable JULIET JOHNSON Consulting Unavailable JULIET JOHNSON Attending Unavailable NONE NONE, NONE~[phone] NONE Primary Care Unavailable NONE NONE, NONE~[id number] NONE Consulting Unavailable NONE, NONE Consulting Unavailable JULIET JOHNSON Admitting Unavailable JULIET JOHNSON Consulting Unavailable JULIET JOHNSON Attending Unavailable NONE NONE, NONE~[phone] NONE Primary Care Unavailable NONE NONE, NONE~[phone] NONE Consulting Unavailable NONE, NONE Consulting Unavailable BIBI COSTELLO I Consulting Unavailable BIBI COSTELLO I Attending Unavailable NONE NONE, NONE~[phone] NONE Primary Care Unavailable BIBI COSTELLO I Admitting Unavailable BIBI COSTELLO I Consulting Unavailable NONE NONE, NONE~[phone] NONE Consulting Unavailable NONE, NONE Consulting Unavailable JULIET JOHNSON Referring Unavailable MONTSERRAT GARCIA Primary Care Unavailable MARITZA ABRAHAM II Attending UnavailJULIET Holland Primary Care Unavailable JULIET JOHNSON Attending Unavailable JULIET BOSS Primary Care Unavailable MARITZA ABRAHAM II Attending Unavailrody e SELF Referring Unavailable JULIET JOHNSON Referring Unavailable JULIET JOHNSON Attending Unavailable MONTSERRAT GARCIA Primary Care Unavailable Noemi Beckman Primary Care Provider Medications Current Medications Medication Drug Class(es) Dates Sig (Normalized) Sig (Original) acetaminophen 500 mg oral tablet (6 sources) take 1 tablet by mouth three times daily acetaminophen (TYLENOL) 500 MG Tab tablet Take 500 mg by mouth 3 times daily. 0 Active 200 actuat albuterol 0.09 mg/actuat metered dose inhaler (6 sources) beta2-Adrenergic Agonist Start: 09-15-2016 albuterol (VENTOLIN HFA) 108 (90 Base) MCG/ACT Aero Soln inhaler Completed/Discontinued Medications Medication Drug Class(es) Dates Sig (Normalized) Sig (Original) allopurinol 100 mg oral tablet (20 sources) Xanthine Oxidase Inhibitor Start: 02-11-2014 take 1 tablet by mouth twice daily allopurinol (ZYLOPRIM) 100 mg tablet Take 100 mg by mouth twice daily. 0 02/11/2014 Active Problems Active Problems Problem Classification Problem Date Documented Date Episodic/Chronic Cardiac and circulatory congenital anomalies (20 sources) Congenital pulmonary valve abnormality; Translations: [Other congenital malformations of pulmonary valve] Onset: 6 10-13-2005 Chronic Cardiac dysrhythmias (20 sources) Unspecified atrial fibrillation; Translations: [Paroxysmal atrial fibrillation] Onset: 6 Chronic Cataract (20 sources) Bilateral pseudophakia; Translations: [Presence of intraocular lens] Onset: 9 11-26-2018 Chronic Chronic kidney disease (20 sources) Chronic kidney disease stage 3A ; Translations: [Stage 3a chronic kidney disease] Onset: 0 12-14-2019 Chronic Chronic kidney disease (3 sources) Chronic kidney disease; Translations: [CHRONIC KIDNEY DISEASE STAGE 3B] Onset: 3 Conduction disorders (20 sources) Automatic implantable cardiac defibrillator in situ; Translations: [Presence of automatic (implantable) cardiac defibrillator] Onset: 7 12-14-2019 Chronic Congestive heart failure; nonhypertensive (20 sources) Chronic diastolic heart failure; Translations: [Chronic diastolic (congestive) heart failure] Onset: 1 07-06-2020 Chronic Coronary atherosclerosis and other heart disease (20 sources) Coronary atherosclerosis; Translations: [Atherosclerotic heart disease of [place] coronary artery without angina pectoris] Onset: 0 Chronic Deficiency and other anemia (3 sources) Anemia, unspecified; Translations: [Anemia, unspecified] Onset: 0 Episodic Diabetes mellitus with complications (20 sources) Type 2 diabetes mellitus with other diabetic kidney complication; Translations: [Type 2 diabetes mellitus] Onset: 6 12-14-2019 Chronic Diabetes mellitus without complication (20 sources) Diabetes mellitus type 2 without retinopathy; Translations: [Type 2 diabetes mellitus without complications] Onset: 8 07-12-2017 Chronic Disorders of lipid metabolism (20 sources) Hyperlipidemia; Translations: [Hyperlipidemia, unspecified] Onset: 0 12-14-2019 Chronic Esophageal disorders (20 sources) Gastroesophageal reflux disease without esophagitis; Translations: [Gastro-esophageal reflux disease without esophagitis] Onset: 0 12-14-2019 Chronic Essential hypertension (20 sources) Essential hypertension; Translations: [Essential (primary) hypertension] Onset: 0 12-14-2019 Chronic Glaucoma (20 sources) Primary open angle glaucoma; Translations: [Primary open-angle glaucoma, bilateral, moderate stage] Onset: 8 07-10-2018 Chronic Inflammation; infection of eye (except that caused by tuberculosis or sexually transmitteddisease) (20 sources) Keratoconjunctivitis sicca; Translations: [Keratoconjunctivitis sicca, not specified as Sjogren's, bilateral] Onset: 7 08-25-2016 Chronic Nutritional deficiencies (20 sources) Deficiency of macronutrients; Translations: [Mild protein-calorie malnutrition] Onset: 0 12-14-2019 Chronic Other eye disorders (20 sources) Glaucomatous atrophy of optic disc; Translations: [Glaucomatous optic atrophy, bilateral] Onset: 8 05-18-2017 Chronic Other eye disorders (1 source) Tear film insufficiency; Translations: [Dry eye syndrome of bilateral lacrimal glands] Episodic Other nervous system disorders (1 source) Tremor; Translations: [Tremor] Episodic Other nervous system disorders (1 source) Other abnormal involuntary movements; Translations: [Bradykinesia] Episodic Other nutritional; endocrine; and metabolic disorders (20 sources) Body mass index 40+ - severely obese; Translations: [Morbid (severe) obesity due to excess calories] Onset: 2 Chronic Parkinson`s disease (20 sources) Parkinson's disease; Translations: [Parkinsonism] Onset: 0 12-14-2019 Chronic Pulmonary heart disease (2 sources) Idiopathic pulmonary arterial hypertension ; Translations: [Primary pulmonary hypertension] Chronic Residual codes; unclassified (20 sources) Sleep apnea; Translations: [Sleep apnea, unspecified] Onset: 9 07-23-2018 Chronic Retinal detachments; defects; vascular occlusion; and retinopathy (20 sources) Nonexudative age-related macular degeneration; Translations: [Nonexudative age-related macular degeneration, bilateral, early dry stage] Onset: 9 07-23-2018 Chronic Past or Other Problems Problem Classification Problem Date Documented Da te Episodic/Chronic Administrative/social admission (20 sources) Patient encounter status; Translations: [Persons encountering health services in other specified circumstances] Onset: 12-09-2019 12-14-2019 Episodic Blindness and vision defects (20 sources) Myopia; Translations: [Myopia, unspecified eye] Onset: 02-27-2014 02-27-2014 Episodic Other eye disorders (20 sources) Mechanical ptosis of bilateral eyelids; Translations: [Mechanical ptosis] Onset: 04-28-2015 04-28-2015 Episodic Other eye disorders (20 sources) H/O: L cataract extraction; Translations: [Cataract extraction status, left eye] Onset: 09-08-2018 09-08-2018 Episodic Other eye disorders (20 sources) H/O: R cataract extraction; Translations: [Cataract extraction status, right eye] Onset: 10-02-2018 10-02-2018 Episodic Other gastrointestinal disorders (3 sources) Dysphagia; Translations: [Dysphagia, unspecified type] Episodic Other upper respiratory disease (20 sources) Disorder of vocal cord; Translations: [Other diseases of vocal cords] Onset: 06-07-2004 06-07-2004 Episodic Residual codes; unclassified (20 sources) Procedure not done; Translations: [Procedure and treatment not carried out due to patient leaving prior to being seen by health care provider] Onset: 05-17-2017 05-17-2017 Episodic Results Test Name Value Interpretation Reference Range Facil ity Vital Signs Date Time Vital Sign Value Performing Clinician Faci lity 09-12-2022 10:12-0400 Body height 154.9 cm Juliet Johnson MD Work Phone: [facility] 09-12-2022 10:12-0400 Body weight 94.44 kg Juliet Johnson MD Work Phone: [facility] 09-12-2022 10:12-0400 Diastolic blood pressure 60 mm[Hg] Juliet Johnson MD Work Phone: [facility] 09-12-2022 10:12-0400 Heart rate 54 /min Juliet Johnson MD Work Phone: [facility] 09-12-2022 10:12-0400 Respiratory rate 16 /min Juliet Johnson MD Work Phone: [facility] 09-12-2022 10:12-0400 Systolic blood pressure 116 mm[Hg] Juliet Johnson MD Work Phone: [facility] 06-06-2022 11:12-0400 Body weight 103.42 kg Juliet Johnson MD Work Phone: [facility] 06-06-2022 11:12-0400 Diastolic blood pressure 64 mm[Hg] Juliet Johnson MD Work Phone: [facility] 06-06-2022 11:12-0400 Heart rate 64 /min Juliet Johnson MD Work Phone: [facility] 06-06-2022 11:12-0400 SaO2% (BldA) [Mass fraction] 98 % Juliet Johnson MD Work Phone: [facility] 06-06-2022 11:12-0400 Systolic blood pressure 120 mm[Hg] Juliet Johnson MD Work Phone: [facility] 11-22-2021 11:25-0400 Body weight 100.7 kg Juliet Johnson MD Work Phone: [facility] 11-22-2021 11:25-0400 Diastolic blood pressure 56 mm[Hg] Juliet Johnson MD Work Phone: [facility] 11-22-2021 11:25-0400 Heart rate 56 /min Juliet Johnson MD Work Phone: [facility] 11-22-2021 11:25-0400 SaO2% (BldA) [Mass fraction] 95 % Juliet Johnson MD Work Phone: [facility] 11-22-2021 11:25-0400 Systolic blood pressure 114 mm[Hg] Juliet Johnson MD Work Phone: [facility] 05-24-2021 09:01-0400 Body weight 100.7 kg Juliet Johnson MD Work Phone: [facility] 05-24-2021 09:01-0400 Diastolic blood pressure 68 mm[Hg] Juliet Johnson MD Work Phone: [facility] 05-24-2021 09:01-0400 Heart rate 60 /min Juliet Johnson MD Work Phone: [facility] 05-24-2021 09:01-0400 Systolic blood pressure 124 mm[Hg] Juliet Johnson MD Work Phone: [facility] 06-22-2018 12:31-0400 BMI (Body Mass Index) 46.05 kg/m2 [facility] 06-22-2018 12:31-0400 BP Diastolic 76 mm[Hg] [facility] 06-22-2018 12:31-0400 BP Systolic 132 mm[Hg] [facility] 06-22-2018 12:31-0400 Height 154.9 cm [facility] 12:31-0400 Pulse (Heart Rate) 60 /min Pedro [facility] 06-22-2018 12:31-0400 Respiratory Rate 20 /min Pedro [facility] 06-22-2018 12:31-0400 Weight 110.54 kg [facility] Encounters Encounter Date Encounter Type Care Provider Facility Start: 03-24-2023 Telephone encounter Juliet stack MD Work Phone: Cardiology Procedures Date Procedure Procedure Detail Performing Clinician Start: 03-23-2023 ICD REMOTE CHECK Juliet Rick MD Work Phone: Start: 11-17-2022 ICD REMOTE CHECK Juliet Rick MD Work Phone: Start: 08-18-2022 ICD REMOTE CHECK Juliet Rick MD Work Phone: Start: 05-19-2022 ICD REMOTE CHECK Juliet Rick MD Work Phone: Start: 02-17-2022 ICD REMOTE CHECK Juliet Rick MD Work Phone: Start: 11-18-2021 ICD REMOTE CHECK Juliet Rick MD Work Phone: Start: 08-12-2021 End: 08-12-2021 Visual field xm uni/bi w/interp extended exam Maritza Abraham OD Work Phone: Start: 05-20-2021 ICD REMOTE CHECK Juliet Rick MD Work Phone: Start: 01-24-2020 Adult depression screening assessment Juliet Johnson MD Work Phone: Plan of Treatment Date Care Activity Detail Author Start: 04-24-2031 Urine microalbumin profile DTaP,Tdap,Td Vaccine (2 - Td or Tdap) [facility] Start: 01-29-2024 OCT OPTIC NERVE CIRR US OU (BOTH EYES) OCT OPTIC NERVE CIRRUS OU (BOTH EYES) OPHT Imaging Routine Primary open angle glaucoma (POAG) of both eyes, moderate stage Expected: 01/29/2024 [facility] Work Phone: Payers Date Payer Category Payer Unknown AARP AARP [id number] [id number] 2018-Present xxxxxxxxxx [id number] 2018 Private Health Insurance [facility] AARP SUPPLEMENT [id number] 2018-Present [phone] [place] [address] Indemnity [id number] 2018 Private Health Insurance [facility] AARP SUPPLEMENT [id number] 2018-Present [phone] [place] [address] Indemnity [id number] 2006 Medicare xxxxxxxxxxx [id number] 2006 Medicare [id number] 2006 Medicare MEDICARE MEDICAR E A AND B [id number] 2006-Present [phone] [place] [address] Medicare [id number] 2006 Medicare MEDICARE MEDICAR E A AND B [id number] 2006-Present [phone] [place] [address] Medicare [id number] 1959 Unknown [id number] 1943 Unknown [id number] 1943 Unknown [id number] 1943 Unknown [id number] 1943 Unknown [id number] Social History Date Type Detail Facility Tobacco smoking stat [facility] Unknown if ever smoked [facility] Start: 1945 Sex Assigned At Not on file [facility] Start: 06-21-2018 Tobacco smoking stat [facility] Unknown if ever smoked [facility] Start: 06-22-2018 End: 02-09-2023 Tobacco smoking status NHIS Former smoker [facility] Work Phone: Start: 06-22-2018 History SDOH Alcohol Frequency [facility] Start: 06-22-2018 Tobacco Comment Quit about 30 yrs ag o [facility] Start: 08-24-2018 End: 01-20-2020 Alcohol intake Never [facility] End: 05-30-1980 History of tobacco use Current smoker [facility] Work Phone: End: 05-30-1980 History of tobacco use Pipe Smoker [facility] Work Phone: End: 05-30-1980 History of tobacco use Chews Tobacco [facility] Work Phone: Start: 01-18-2021 End: 02-09-2023 Alcohol intake Current non-drinker of alcohol (finding) [facility] Start: 05-14-2021 End: 11-22-2021 Exposure to SARS-CoV-2 (event) Not sure [facility] Start: 08-02-2014 End: 02-09-2023 Tobacco use and exposure Former smokeless tobacco user [facility] Start: 01-20-2020 End: 08-10-2022 History of Social function [facility] Adult Depression Screening Assessment 0 [facility] Medical Equipment Procedure Code Equipment Code Equipment Original Text Equipment Identifier Dates Donahue Thk1.65mm P tfe 4x.5in Cardiovascular Sterile - [id number] Start: 12-04-2019 Clinical Notes 12-04-2019 to 03-24-2023 Addendum Note - Rhina Nieves RN - 03/24/2023 3:35 PM ESTTelephone Encounter - Rhina Nieves RN - 03/24/2023 3:34 PM ESTAddendum Note - Reed Go LPN - 03/24/2023 3:20 PM EST Note Date & Type Note Facility 03-24-2023 Miscellaneous Notes Addended by: RHINA NIEVES on: 03/24/2023 03:35 PM Modules accepted: Orders Contacted the patient's and explained the order has been placed. Instructed her to call the office once blood work has been completed. Feng RN Addended by: REED GO on: 03/24/2023 03:20 PM Modules accepted: Orders Gely, patients , called. Verified name and date of of patient. States they won't be going to their PCP to have labs done due to it being closed and needs order for [facility] system. Neither patient nor Gely drives and they depend on others for transportation. They hope to make it to the lab today, tomorrow at the latest, and concerned about having to wait over the weekend. Aware if emergent emergency room is option. Reed Go LPN Contacted the patient and spoke to his . Reviewed remote transmission with her. She would order for CBC faxed to PCP. Order will be faxed. Instructed her to continue to monitor and call back if the patient develops worsening symptoms. Feng RN ----- Message from Juliet Rick MD sent at 03/24/2023 1:23 PM EST ----- Regarding: RE: patient in AFL with no AC Rhina, he needs a CBC and if he is not anemic, we should start apixaban (Eliquis). Thanks. Juliet Rick MD, MPH ----- Message ----- From: Clint Nascimento, RN Sent: 03/24/2023 10:26 AM EST To: Juliet Rick MD; Rhina Nieves RN Subject: patient in AFL with no AC Hi Dr. Rick, we received an alert remote for AMERICO LEAVITT [[id number]] that shows he is currently in AFL. Current episode in progress for 15 hours. AF burden 1.8%. Anticoagulant: Asprin only. Spoke to the patient and he states that he has been more tired than normal and more short of breath than normal. He also states that he was a little more fluid overloaded than normal so he increased his water pill. Thank you. Clint Nascimento RN documented in this encounter [facility] 02-09-2023 Note HNO ID: [id number] Author: Maritza Abraham II, OD Service: ? Author Type: SUPERVISOR QUALITY CONTROL Type: Progress Notes Filed: 02/09/2023 10:51 AM Note Text: Assessment and Plan H40.1132 Primary open angle glaucoma (POAG) of both eyes, moderate stage (primary encounter diagnosis) Comment: Intraocular pressures appear stable with current treatment. Advise patient as to the risks of blindness with glaucoma. Advise patient as to status of condition and necessity of close monitoring as directed. Continue use of Brimonidine 0.2% 1 gt both eyes bid. Recheck glaucoma control in 6 months with updated OCT NFA. E11.9 Type 2 diabetes mellitus without retinopathy (HCC) Comment: Continue yearly Dilated fundus exam in 6 months. H35.3131 Early dry stage nonexudative age-related macular degeneration of both eyes Comment: Stable. Monitor. Z96.1 Pseudophakia of both eyes Comment: Posterior chamber intraocular lenses are well positioned. I have confirmed and edited as necessary the relevant ophthalmic history, ROS, and the neuro exam findings as obtained by others. I have seen and examined Americo Leavitt. I have discussed the case and the management of this patient's care with the Resident/Fellow, if applicable. I also have reviewed and agree with the assessment and plan as stated above and agree with all of its relevant components. Maritza Abraham II, OD [facility] 09-12-2022 Note HNO ID: [id number] Author: Juliet Johnson MD Service: ? Author Type: Physician Type: Progress Notes Filed: 09/12/2022 10:56 AM Note Text: [facility]OLOGY Cardiology ([facility]) [address] [facility] [id number] OUTPATIENT VISIT DATE 09/12/2022 PRIMARY CARE PHYSICIAN: Juliet Decker DO [address] [place] [address] HISTORY OF PRESENT ILLNESS: Mr. Leavitt is a 76 year old gentleman with a history of coronary artery disease coronary bypass grafting November 2019, prior history of percutaneous coronary intervention and cardiac arrest, history of AICD implantation, hypertension, dyslipidemia, diabetes (mah-pniouay-udwzmidax), obesity, obstructive sleep apnea on CPAP, Parkinson's disease, and chronic kidney disease who presents for routine follow-up. Patient is compliant with his torsemide. He tells me it causes lightheadedness and makes him feel weak. He tries to be compliant with low-sodium diet. He has not had chest pain or pressure. He has lower extremity edema no symptoms consistent with PND orthopnea. He denies palpitations, lightheadedness, dizziness, or syncope. PAST MEDICAL HISTORY Diagnosis Date Acute myocardial infarction of other specified sites 2003 Myocardial Infarction Arthritis Asthma Chest pain, unspecified 2003 Coronary atherosclerosis of unspecified type of vessel, [place] or graft 2003 Heart attack (HCC) Mixed hyperlipidemia Hyperlipidemia Parkinson disease (HCC) Type II or unspecified type diabetes mellitus without mention of complication, not stated as uncontrolled Unspecified essential hypertension 2003 Essential hypertension Unspecified sleep apnea 2005 Sleep apnea PAST SURGICAL HISTORY Procedure Laterality Date ANES PERMANENT TRANSVENOUS PACEMAKER INSERTION 12/2003 Permanent Pacemaker ICD (ICD) 2003 generator change 2010 LEFT HEART CATH,PERCUTANEOUS 02/2003 Cardiac cath, L heart PAST SURGICAL HISTORY OF Heart bypass- November 2019 PERC TRANSL COR ANGIO 12/2003 Percutaneous Transluminal Coronary Angio Status TRABECULOPLASTY BY LASER SURGERY Right 12-15-01 / 06-21-2017 Selective laser Trabeculoplasty (SLT) TRABECULOPLASTY BY LASER SURGERY Left 01-01-2018 / 07-12-2017 Selective laser Trabeculoplasty (SLT) XCAPSL CTRC RMVL INSJ IO LENS PROSTH W/O ECP Left 08/30/2018 Cataract Extraction with PC IOL XCAPSL CTRC RMVL INSJ IO LENS PROSTH W/O ECP Right 09/20/2018 Cataract Extraction with PC IOL SOCIAL HISTORY Social History Tobacco Use Smoking status: Former Types: Pipe Quit date: 05/30/1980 Years since quittin.3 Smokeless tobacco: Former Types: Chew Quit date: 05/30/1980 Vaping Use Vaping Use: Never used Substance Use Topics Alcohol use: No Drug use: No FAMILY HISTORY Problem Relation Age of Onset Coronary Artery Disease Father Diabetes Father Colon Cancer Father Diabetes Mother other (parkinson's disease) Mother None Sister No Ocular Disease No Family History ALLERGIES: ALLERGIES No Known Allergies MEDICATIONS: oxybutynin (DITROPAN) 5 mg tabletTake 5 mg by mouth daily at bedtime.Disp: Rfl: ferrous sulfate 325 mg (65 mg iron) tabletTake by mouth once daily.Disp: Rfl: torsemide (DEMADEX) 20 mg tabletTake 2 tablets by mouth once daily.Disp: 180 tabletRfl: 3 (Patient taking differently: Take 40 mg by mouth once daily. Takes one tablet daily, does not typically take the second one 1/2 hour later as directed) spironolactone (ALDACTONE) 25 mg tabletTake 1 tablet by mouth once daily.Disp: 90 tabletRfl: 3 rosuvastatin (CRESTOR) 10 mg tabletTake 1 tablet by mouth daily at bedtime.Disp: 90 tabletRfl: 3 brimonidine (ALPHAGAN) 0.2 % ophthalmic solutionUse 1 Drop in both eyes twice daily.Disp: 15 mLRfl: 4 finasteride (PROSCAR) 5 mg tabletTake 5 mg by mouth once daily.Disp: Rfl: amLODIPine (NORVASC) 10 mg tabletTake 10 mg by mouth once daily.Disp: Rfl: esomeprazole (NEXIUM) 40 mg capsuleTake 40 mg by mouth once daily.Disp: Rfl: 5 docusate sodium (COLACE) 100 mg capsuleTake 100 mg by mouth twice daily.Disp: Rfl: carbidopa-levodopa (SINEMET 25-100) 25-100 mg per tabletTake 2 tablets by mouth three times daily. Disp: Rfl: FLOVENT HFA 110 mcg/actuation inhalerInhale 2 Puffs as instructed twice daily. Disp: Rfl: aspirin, enteric coated (ASPIRIN, ENTERIC COATED) 81 mg EC tabletTake 81 mg by mouth once daily.Disp: Rfl: allopurinol (ZYLOPRIM) 100 mg tabletTake 100 mg by mouth twice daily. Disp: Rfl: metoprolol succinate ER (TOPROL XL) 50 mg 24 hr tabletTake 1 tablet by mouth once daily.Disp: 90 tabletRfl: 3 potassium chloride (K-TAB) 10 mEq tabletTake 1 tablet by mouth once daily.Disp: 90 tabletRfl: 3 (Patient not taking: Reported on 09/12/2022) pantoprazole DR (PROTONIX) 40 mg tabletTake 40 mg by mouth once daily.Disp: Rfl: (Patie (more content not included)... [facility] 09-12-2022 Instructions Juliet Johnson MD - 09/12/2022 10:29 AM EDT We are decreasing the Metoprolol Succinate (Toprol) to 50 mg once per day Try to take the Demadex (torsemide) at lest three times per week. documented in this encounter [facility] 09-12-2022 History of Presen t illness Narrative Images from the original note were not included. [facility] Cardiology ([facility]) [address] [facility] [address] OUTPATIENT VISIT DATE 09/12/2022 PRIMARY CARE PHYSICIAN: Juliet Decker DO [address] [place] [address] HISTORY OF PRESENT ILLNESS: Mr. Leavitt is a 76 year old gentleman with a history of coronary artery disease coronary bypass grafting November 2019, prior history of percutaneous coronary intervention and cardiac arrest, history of AICD implantation, hypertension, dyslipidemia, diabetes ([id number]), obesity, obstructive sleep apnea on CPAP, Parkinson's disease, and chronic kidney disease who presents for routine follow-up. Patient is compliant with his torsemide. He tells me it causes lightheadedness and makes him feel weak. He tries to be compliant with low-sodium diet. He has not had chest pain or pressure. He has lower extremity edema no symptoms consistent with PND orthopnea. He denies palpitations, lightheadedness, dizziness, or syncope. PAST MEDICAL HISTORY Diagnosis Date Acute myocardial infarction of other specified sites 2003 Myocardial Infarction Arthritis Asthma Chest pain, unspecified 2003 Coronary atherosclerosis of unspecified type of vessel, port graham or graft 2003 Heart attack (HCC) Mixed hyperlipidemia Hyperlipidemia Parkinson disease (HCC) Type II or unspecified type diabetes mellitus without mention of complication, not stated as uncontrolled Unspecified essential hypertension 2002 Essential hypertension Unspecified sleep apnea 2004 Sleep apnea PAST SURGICAL HISTORY Procedure Laterality Date ANES PERMANENT TRANSVENOUS PACEMAKER INSERTION 12/2003 Permanent Pacemaker ICD (ICD) 2003 generator change 2010 LEFT HEART CATH,PERCUTANEOUS 02/2003 Cardiac cath, L heart PAST SURGICAL HISTORY OF Heart bypass- November 2019 PERC TRANSL COR ANGIO 12/2003 Percutaneous Transluminal Coronary Angio Status TRABECULOPLASTY BY LASER SURGERY Right 12-15-01-2017 / 06-21-2017 Selective laser Trabeculoplasty (SLT) TRABECULOPLASTY BY LASER SURGERY Left 01-01-2018 / 07-12-2017 Selective laser Trabeculoplasty (SLT) XCAPSL CTRC RMVL INSJ IO LENS PROSTH W/O ECP Left 08/30/2018 Cataract Extraction with PC IOL XCAPSL CTRC RMVL INSJ IO LENS PROSTH W/O ECP Right 09/20/2018 Cataract Extraction with PC IOL SOCIAL HISTORY Social History Tobacco Use Smoking status: Former Types: Pipe Quit date: 05/30/1980 Years since quittin.3 Smokeless tobacco: Former Types: Chew Quit date: 05/30/1980 Vaping Use Vaping Use: Never used Substance Use Topics Alcohol use: No Drug use: No FAMILY HISTORY Problem Relation Age of Onset Coronary Artery Disease Father Diabetes Father Colon Cancer Father Diabetes Mother other (parkinson's disease) Mother None Sister No Ocular Disease No Family History ALLERGIES: ALLERGIES No Known Allergies MEDICATIONS: oxybutynin (DITROPAN) 5 mg tablet^Take 5 mg by mouth daily at bedtime.^Disp: ^Rfl: ferrous sulfate 325 mg (65 mg iron) tablet^Take by mouth once daily.^Disp: ^Rfl: torsemide (DEMADEX) 20 mg tablet^Take 2 tablets by mouth once daily.^Disp: 180 tablet^Rfl: 3 (Patient taking differently: Take 40 mg by mouth once daily. Takes one tablet daily, does not typically take the second one 1/2 hour later as directed) spironolactone (ALDACTONE) 25 mg tablet^Take 1 tablet by mouth once daily.^Disp: 90 tablet^Rfl: 3 rosuvastatin (CRESTOR) 10 mg tablet^Take 1 tablet by mouth daily at bedtime.^Disp: 90 tablet^Rfl: 3 brimonidine (ALPHAGAN) 0.2 % ophthalmic solution^Use 1 Drop in both eyes twice daily.^Disp: 15 mL^Rfl: 4 finasteride (PROSCAR) 5 mg tablet^Take 5 mg by mouth once daily.^Disp: ^Rfl: amLODIPine (NORVASC) 10 mg tablet^Take 10 mg by mouth once daily.^Disp: ^Rfl: esomeprazole (NEXIUM) 40 mg capsule^Take 40 mg by mouth once daily.^Disp: ^Rfl: 5 docusate sodium (COLACE) 100 mg capsule^Take 100 mg by mouth twice daily.^Disp: ^Rfl: carbidopa-levodopa (SINEMET 25-100) 25-100 mg per tablet^Take 2 tablets by mouth three times daily. ^Disp: ^Rfl: FLOVENT HFA 110 mcg/actuation inhaler^Inhale 2 Puffs as instructed twice daily. ^Disp: ^Rfl: aspirin, enteric coated (ASPIRIN, ENTERIC COATED) 81 mg EC tablet^Take 81 mg by mouth once daily.^Disp: ^Rfl: allopurinol (ZYLOPRIM) 100 mg tablet^Take 100 mg by mouth twice daily. ^Disp: ^Rfl: metoprolol succinate ER (TOPROL XL) 50 mg 24 hr tablet^Take 1 tablet by mouth once daily.^Disp: 90 tablet^Rfl: 3 potassium chloride (K-TAB) 10 mEq tablet^Take 1 tablet by mouth once daily.^Disp: 90 tablet^Rfl: 3 (Patient not taking: Reported on 09/12/2022) pantoprazole DR (PROTONIX) 40 mg tablet^Take 40 mg by mouth once daily.^Disp: ^Rfl: (Patient not taking: Reported on 11/22/2021) REVIEW OF SYSTEMS: Review of Systems Constitutional: Negative for chills, fever, malaise/fatigue and weight loss. HENT: Negative for hearing loss and sore throat. Eyes: Negative for blurred vision and double vision. Respiratory: Negative. Cardiovascular: Positive for leg swelling. Negative for chest pain, palpitations, orthopnea, claudication and PND. Gastrointestinal: Negative. Genitourinary: Negative for dysuria, frequency, hematuria and urgency. Musculoskeletal: Negative. Skin: Negative. Neurological: Negative for dizziness, seizures, loss of consciousness, weakness and headaches. Endo/Heme/Allergies: Negative for environmental allergies. Does not bruise/bleed easily. Psychiatric/Behavioral: Negative for depression. PHYSICAL EXAMINATION: BP 116/60 (BP Site: Right Arm, BP Position: Sitting, BP Cuff Size: Regular Adult) Pulse (!) 54 Resp 16 Ht 154.9 cm (5' 1 ) Wt 94.4 kg (208 lb 3.2 oz) BMI 39.34 kg/m General: Elderly somewhat obese gentleman sitting appears comfortable and in no apparent distress. He is alert and oriented x3. Difficulties noted with ambulation due to shuffling gait. HEENT: Carotid upstrokes are brisk bilaterally. No bruits detected. No JVD appreciated on today's examination. Pulmonary: Lungs are clear no rales, wheezes, rhonchi. Cardiovascular: Normal S1, S2 with regular rate and rhythm. No murmurs, rubs, or gallops appreciated. Extremities: Warm, well-perfused, bilateral lower extremity 2+ edema worse on the right than the left. Dorsalis pedis and posterior tibial pulses are 1-2+ and symmetric. Extensive ecchymosis of the left knee. CARDIOVASCULAR MEDICINE TESTING: Cardiac Catheteriztion 11/22/2019 LAD with prox LAD 80% stenosis MID LAD: 100% stenosis Circumflex artery: Mid circ 50% stenosis. Proximal 95% stenosis Right coronary artery: Prox RCA: 90% stenosis MID RCA: 95% stenosis Distal RCA 50% stenosis RT PDA Mid 50% stenosis Echocardiogram 10/07/2021: - Technically difficult exam due to body habitus. - Exam indication: s/p CABG - The left ventricle is normal in size. There is moderate concentric left ventricular hypertrophy. Left ventricular systolic function is normal. EF = 55 5% (visual est.) Indeterminate left ventricular diastolic dysfunction. - The right ventricle is normal in size. Right ventricular systolic function is low normal. - There are no significant valvular abnormalities. - Exam was compared with the prior CC echocardiographic exam performed on 02/19/2020, no significant change. Echocardiogram 02/19/20: CONCLUSIONS: - Technically difficult exam due to difficult parasternal window. - Exam indication: S/p CABG - The left ventricle is normal in size. There is severe septal left ventricular hypertrophy. Left ventricular systolic function is normal. EF = 57 5% (2D biplane) Definity contrast used for endocardial border detection. Left ventricular diastolic function was not evaluated due to AF. - The right ventricle is normal in size. Right ventricular systolic function is normal. - There is 1+ MR and TR. - Unable to visualize exact AV morphology. - Estimated right ventricular systolic pressure is 68 mmHg consistent with moderately severe pulmonary hypertension. Estimated right atrial pressure is 15 mmHg based on IVC assessment. - Exam was compared with the prior CC echocardiographic exam performed on 12/04/2019 (intraop NOBLE). SINGLE LEAD ICD REMOTE EVALUATION 08/18/2022: PRESENTING EGM: VS BATTERY STATUS: Estimated time remaining to PADILLA is 7.8 years COUNTERS SINCE: 05/19/2022 ATRIAL ARRHYTHMIAS: None VENTRICULAR ARRHYTHMIAS: There have been no ventricular detections. LEAD MEASUREMENTS: Sensing is appropriate. Review of the lead impedance trends are normal. OTHER DIAGNOSTICS: RV pacing 0.1%. FOLLOW UP: Continue q3 month remote transmissions and yearly in-clinic interrogations. I have personally reviewed the Echocardiogram and Cardiac Catheterization/Percutaneous Coronary Intervention (PCI). IMPRESSION: Mr. Leavitt is a 76 year old gentleman with extensive cardiac history including coronary artery disease remote coronary intervention and most recent coronary bypass grafting November 2019 (LO-LAD, SVG-OM, SVG-PDA), prior history of cardiac arrest, history of atrial fibrillation and remote PVI 09/2005, history of AICD implantation, hypertension, diabetes, dyslipidemia, chronic diastolic heart failure, chronic kidney disease who presents for routine cardiology follow-up. PLAN AND RECOMMENDATIONS: 1. Coronary artery disease involving port graham coronary artery of port graham heart without angina pectoris - ICD9: 414.01, ICD10: I25.10 (primary diagnosis) Patient doing well without symptoms concerning for angina. Continue current medical therapy and risk factor modification - METOPROLOL SUCCINATE ER 50 MG TABLET,EXTENDED RELEASE 24 HR 2. Chronic diastolic congestive heart failure (HCC) - ICD9: 428.32, 428.0, ICD10: I50.32 I have asked the patient to try to take torsemide at least 3 to 4 days a week. Continue low-sodium diet and current dose of spironolactone. 3. Paroxysmal atrial fibrillation (HCC) - ICD9: 427.31, ICD10: I48.0 Decrease Toprol to 50 mg daily due to bradycardia - METOPROLOL SUCCINATE ER 50 MG TABLET,EXTENDED RELEASE 24 HR 4. Essential hypertension - ICD9: 401.9, ICD10: I10 Well-controlled on current regimen 5. Hyperlipidemia LDL goal <70 - ICD9: 272.4, ICD10: E78.5 Patient is not compliant with Crestor 6. ICD (implantable cardioverter-defibrillator) in place - ICD9: V45.02, ICD10: Z95.810 Juliet Johnson MD documented in this encounter [facility] 08-10-2022 Note HNO ID: [id number] Author: Maritza Abraham II, OD Service: ? Author Type: SUPERVISOR QUALITY CONTROL Type: Progress Notes Filed: 08/10/2022 11:11 AM Note Text: Assessment and Plan H40.1132 Primary open angle glaucoma (POAG) of both eyes, moderate stage (primary encounter diagnosis) Comment: Intraocular pressures appear stable with current treatment. Advise patient as to the risks of blindness with glaucoma. Advise patient as to status of condition and necessity of close monitoring as directed. Continue use of Brimonidine 0.2% 1 gt both eyes bid. Recheck glaucoma control in 6 months. E11.9 Type 2 diabetes mellitus without retinopathy (HCC) Comment: Patient off all medications. Examination shows no ocular diabetic complications today. Advise patient to immediately report worsening in status or additional symptoms. Continue yearly dilated eye examinations. H35.3131 Early dry stage nonexudative age-related macular degeneration of both eyes Comment: No progression noted. Monitor. H04.123 Dry eye syndrome of both eyes Comment: Recommend use of Systane Complete 1 gt OU up to qid as needed for relief of symptoms. Z96.1 Pseudophakia of both eyes Comment: Posterior chamber intraocular lenses are well positioned and clear. H52.223 Regular astigmatism of both eyes H52.4 Presbyopia Comment: Small shift in glasses power. Glasses for distance would clear vision further if desired. Otherwise OTC readers for near tasks. I have confirmed and edited as necessary the relevant ophthalmic history, ROS, and the neuro exam findings as obtained by others. I have seen and examined Americo Leavitt. I have discussed the case and the management of this patient's care with the Resident/Fellow, if applicable. I also have reviewed and agree with the assessment and plan as stated above and agree with all of its relevant components. Maritza Abraham II, OD [facility] 08-10-2022 Instructions Maritza Abraham II, OD - 08/10/2022 11:11 AM EDT Assessment and Plan H40.1132 Primary open angle glaucoma (POAG) of both eyes, moderate stage (primary encounter diagnosis) Comment: Intraocular pressures appear stable with current treatment. Advise patient as to the risks of blindness with glaucoma. Advise patient as to status of condition and necessity of close monitoring as directed. Continue use of Brimonidine 0.2% 1 gt both eyes bid. Recheck glaucoma control in 6 months. E11.9 Type 2 diabetes mellitus without retinopathy (HCC) Comment: Patient off all medications. Examination shows no ocular diabetic complications today. Advise patient to immediately report worsening in status or additional symptoms. Continue yearly dilated eye examinations. H35.3131 Early dry stage nonexudative age-related macular degeneration of both eyes Comment: No progression noted. Monitor. H04.123 Dry eye syndrome of both eyes Comment: Recommend use of Systane Complete 1 gt OU up to qid as needed for relief of symptoms. Z96.1 Pseudophakia of both eyes Comment: Posterior chamber intraocular lenses are well positioned and clear. H52.223 Regular astigmatism of both eyes H52.4 Presbyopia Comment: Small shift in glasses power. Glasses for distance would clear vision further if desired. Otherwise OTC readers for near tasks. I have confirmed and edited as necessary the relevant ophthalmic history, ROS, and the neuro exam findings as obtained by others. I have seen and examined Americo Leavitt. I have discussed the case and the management of this patient's care with the Resident/Fellow, if applicable. I also have reviewed and agree with the assessment and plan as stated above and agree with all of its relevant components. Maritza Abraham II, OD documented in this encounter [facility] 08-10-2022 History of Presen t illness Narrative Assessment and Plan H40.1132 Primary open angle glaucoma (POAG) of both eyes, moderate stage (primary encounter diagnosis) Comment: Intraocular pressures appear stable with current treatment. Advise patient as to the risks of blindness with glaucoma. Advise patient as to status of condition and necessity of close monitoring as directed. Continue use of Brimonidine 0.2% 1 gt both eyes bid. Recheck glaucoma control in 6 months. E11.9 Type 2 diabetes mellitus without retinopathy (HCC) Comment: Patient off all medications. Examination shows no ocular diabetic complications today. Advise patient to immediately report worsening in status or additional symptoms. Continue yearly dilated eye examinations. H35.3131 Early dry stage nonexudative age-related macular degeneration of both eyes Comment: No progression noted. Monitor. H04.123 Dry eye syndrome of both eyes Comment: Recommend use of Systane Complete 1 gt OU up to qid as needed for relief of symptoms. Z96.1 Pseudophakia of both eyes Comment: Posterior chamber intraocular lenses are well positioned and clear. H52.223 Regular astigmatism of both eyes H52.4 Presbyopia Comment: Small shift in glasses power. Glasses for distance would clear vision further if desired. Otherwise OTC readers for near tasks. I have confirmed and edited as necessary the relevant ophthalmic history, ROS, and the neuro exam findings as obtained by others. I have seen and examined Americo Reuben. I have discussed the case and the management of this patient's care with the Resident/Fellow, if applicable. I also have reviewed and agree with the assessment and plan as stated above and agree with all of its relevant components. Maritza Abraham II, OD documented in this encounter [facility] 06-08-2022 Miscellaneous Notes Called and spoke with patient's Gely and notified of below instructions from Dr. Johnson. Patrica Rivera RN Images from the original note were not included. Juliet Johnson MD You 8 minutes ago (4:46 PM) He should take the Spironolactone 30 min prior to the Demadex. The burning on urination is unlikely due to the medications. If those sx persist he needs to go to primary care doc or urgent care for UA and culture Javier , Gely,calling on behalf of patient. Patient was seen on 06/06/2022 and had the prescription for demadex increased to 2 tablets per day x 1 week, then resume 1 per day. Also added spironolactone 1 per day. The daughter had written down not to take all 3 pills at the same time and the is calling for clarification. She stated the daughter said something about taking 30 minutes apart, but it was not clear which medications should be taken 30 minutes apart. also states the patient is complaining of burning with urination. Asking if that could be from the medication? Gely can be reached back at [phone]. documented in this encounter [facility] 06-06-2022 Note HNO ID: [id number] Author: Juliet Johnson MD Service: ? Author Type: Physician Type: Progress Notes Filed: 06/06/2022 11:53 AM Note Text: [facility] SECTION OF REGIONAL CARDIOLOGY Cardiology ([facility]) [address] [facility] [address] OUTPATIENT VISIT DATE 06/06/2022 PRIMARY CARE PHYSICIAN: Juliet Decker DO [address] [place] [address] HISTORY OF PRESENT ILLNESS: Mr. Leavitt is a 76 year old gentleman with a history of coronary artery disease coronary bypass grafting November 2019, prior history of percutaneous coronary intervention and cardiac arrest, history of AICD implantation, hypertension, dyslipidemia, diabetes ([id number]), obesity, obstructive sleep apnea on CPAP, Parkinson's disease, and chronic kidney disease who presents for routine follow-up. He has been noncompliant with his low-sodium diet. He has worsening lower extremity edema and approximate 10 pound weight gain over the last 2 weeks. He has noticed decreased urination and increasing shortness of breath on exertion. He went to get blood work last week and had a fall in the parking lot resulting in significant trauma to his left knee. He was not seen in the emergency room for evaluation. He denies symptoms consistent with PND orthopnea. He has not had chest pain or pressure. Denies symptoms of palpitations, lightheadedness, dizziness, or syncope. PAST MEDICAL HISTORY Diagnosis Date Acute myocardial infarction of other specified sites 2003 Myocardial Infarction Arthritis Asthma Chest pain, unspecified 2003 Coronary atherosclerosis of unspecified type of vessel, port graham or graft 2003 Heart attack (HCC) Mixed hyperlipidemia Hyperlipidemia Parkinson disease (HCC) Type II or unspecified type diabetes mellitus without mention of complication, not stated as uncontrolled Unspecified essential hypertension 2003 Essential hypertension Unspecified sleep apnea 2005 Sleep apnea PAST SURGICAL HISTORY Procedure Laterality Date ANES PERMANENT TRANSVENOUS PACEMAKER INSERTION 12/2003 Permanent Pacemaker ICD (ICD) 2003 generator change 2010 LEFT HEART CATH,PERCUTANEOUS 02/2003 Cardiac cath, L heart PAST SURGICAL HISTORY OF Heart bypass- November 2019 PERC TRANSL COR ANGIO 12/2003 Percutaneous Transluminal Coronary Angio Status TRABECULOPLASTY BY LASER SURGERY Right 12-15-01 / 06-21-2017 Selective laser Trabeculoplasty (SLT) TRABECULOPLASTY BY LASER SURGERY Left 01-01-2018 / 07-12-2017 Selective laser Trabeculoplasty (SLT) XCAPSL CTRC RMVL INSJ IO LENS PROSTH W/O ECP Left 08/30/2018 Cataract Extraction with PC IOL XCAPSL CTRC RMVL INSJ IO LENS PROSTH W/O ECP Right 09/20/2018 Cataract Extraction with PC IOL SOCIAL HISTORY Social History Tobacco Use Smoking status: Former Types: Pipe Quit date: 05/30/1980 Years since quittin.0 Smokeless tobacco: Former Types: Chew Quit date: 05/30/1980 Vaping Use Vaping Use: Never used Substance Use Topics Alcohol use: No Drug use: No FAMILY HISTORY Problem Relation Age of Onset Coronary Artery Disease Father Diabetes Father Colon Cancer Father Diabetes Mother other (parkinson's disease) Mother None Sister No Ocular Disease No Family History ALLERGIES: ALLERGIES No Known Allergies MEDICATIONS: oxybutynin (DITROPAN) 5 mg tabletdaily at bedtime.Disp: Rfl: ferrous sulfate 325 mg (65 mg iron) tabletTake by mouth once daily.Disp: Rfl: potassium chloride (K-TAB) 10 mEq tabletTake 1 tablet by mouth once daily.Disp: 90 tabletRfl: 3 rosuvastatin (CRESTOR) 10 mg tabletTake 1 tablet by mouth daily at bedtime.Disp: 90 tabletRfl: 3 furosemide (LASIX) 40 mg tabletTake 1 tablet by mouth once daily. Please take 40 mg tablet 2 times per day, 3 times per weekDisp: 126 tabletRfl: 0 brimonidine (ALPHAGAN) 0.2 % ophthalmic solutionUse 1 Drop in both eyes twice daily.Disp: 15 mLRfl: 4 finasteride (PROSCAR) 5 mg tabletonce daily.Disp: Rfl: amLODIPine (NORVASC) 10 mg tabletTake 10 mg by mouth once daily.Disp: Rfl: metoprolol succinate ER (TOPROL XL) 100 mgTake 1 tablet by mouth once daily.Disp: 90 tabletRfl: 4 esomeprazole (NEXIUM) 40 mg capsuleTake 40 mg by mouth once daily.Disp: Rfl: 5 docusate sodium (COLACE) 100 mg capsuleTake 100 mg by mouth twice daily.Disp: Rfl: carbidopa-levodopa (SINEMET 25-100) 25-100 mg per tabletTake 2 tablets by mouth three times daily. Disp: Rfl: FLOVENT HFA 110 mcg/actuation inhalerInhale 2 Puffs as instructed twice daily. Disp: Rfl: aspirin, enteric coated (ASPIRIN, ENTERIC COATED) 81 mg EC tabletTake 81 mg by mouth once daily.Disp: Rfl: allopurinol (ZYLOPRIM) 100 mg tabletTake 100 mg by mouth twice daily. Disp: Rfl: pantoprazole DR (PROTONIX) 40 mg tabletTake 40 mg by mouth once daily.Disp: Rfl: (Patient not taking: No sig reported) REVIEW OF (more content not included)... [facility] 06-06-2022 Instructions Juliet Johnson MD - 06/06/2022 11:37 AM EDT We are changing the Lasix (Furosemide) to Toresemide 20mg two tabs once per day for one week then down to one pill per day We are adding Spironolactone 25 mg once per day Repeat blood work in 2-3 weeks documented in this encounter [facility] 06-06-2022 History of Presen t illness Narrative Images from the original note were not included. [facility] SECTION OF REGIONAL CARDIOLOGY Cardiology ([facility]) [address] [facility] [address] OUTPATIENT VISIT DATE 06/06/2022 PRIMARY CARE PHYSICIAN: Juliet Decker DO [address] [place] [address] HISTORY OF PRESENT ILLNESS: Mr. Leavitt is a 76 year old gentleman with a history of coronary artery disease coronary bypass grafting November 2019, prior history of percutaneous coronary intervention and cardiac arrest, history of AICD implantation, hypertension, dyslipidemia, diabetes ([id number]), obesity, obstructive sleep apnea on CPAP, Parkinson's disease, and chronic kidney disease who presents for routine follow-up. He has been noncompliant with his low-sodium diet. He has worsening lower extremity edema and approximate 10 pound weight gain over the last 2 weeks. He has noticed decreased urination and increasing shortness of breath on exertion. He went to get blood work last week and had a fall in the parking lot resulting in significant trauma to his left knee. He was not seen in the emergency room for evaluation. He denies symptoms consistent with PND orthopnea. He has not had chest pain or pressure. Denies symptoms of palpitations, lightheadedness, dizziness, or syncope. PAST MEDICAL HISTORY Diagnosis Date Acute myocardial infarction of other specified sites 2004 Myocardial Infarction Arthritis Asthma Chest pain, unspecified 2004 Coronary atherosclerosis of unspecified type of vessel, port graham or graft 2004 Heart attack (HCC) Mixed hyperlipidemia Hyperlipidemia Parkinson disease (HCC) Type II or unspecified type diabetes mellitus without mention of complication, not stated as uncontrolled Unspecified essential hypertension 2003 Essential hypertension Unspecified sleep apnea 2005 Sleep apnea PAST SURGICAL HISTORY Procedure Laterality Date ANES PERMANENT TRANSVENOUS PACEMAKER INSERTION 12/2003 Permanent Pacemaker ICD (ICD) 2004 generator change 2010 LEFT HEART CATH,PERCUTANEOUS 02/2003 Cardiac cath, L heart PAST SURGICAL HISTORY OF Heart bypass- November 2019 PERC TRANSL COR ANGIO 12/2003 Percutaneous Transluminal Coronary Angio Status TRABECULOPLASTY BY LASER SURGERY Right 12-15-01 / 06-21-2017 Selective laser Trabeculoplasty (SLT) TRABECULOPLASTY BY LASER SURGERY Left 01-01-2018 / 07-12-2017 Selective laser Trabeculoplasty (SLT) XCAPSL CTRC RMVL INSJ IO LENS PROSTH W/O ECP Left 08/30/2018 Cataract Extraction with PC IOL XCAPSL CTRC RMVL INSJ IO LENS PROSTH W/O ECP Right 09/20/2018 Cataract Extraction with PC IOL SOCIAL HISTORY Social History Tobacco Use Smoking status: Former Types: Pipe Quit date: 05/30/1980 Years since quittin.0 Smokeless tobacco: Former Types: Chew Quit date: 05/30/1980 Vaping Use Vaping Use: Never used Substance Use Topics Alcohol use: No Drug use: No FAMILY HISTORY Problem Relation Age of Onset Coronary Artery Disease Father Diabetes Father Colon Cancer Father Diabetes Mother other (parkinson's disease) Mother None Sister No Ocular Disease No Family History ALLERGIES: ALLERGIES No Known Allergies MEDICATIONS: oxybutynin (DITROPAN) 5 mg tablet^daily at bedtime.^Disp: ^Rfl: ferrous sulfate 325 mg (65 mg iron) tablet^Take by mouth once daily.^Disp: ^Rfl: potassium chloride (K-TAB) 10 mEq tablet^Take 1 tablet by mouth once daily.^Disp: 90 tablet^Rfl: 3 rosuvastatin (CRESTOR) 10 mg tablet^Take 1 tablet by mouth daily at bedtime.^Disp: 90 tablet^Rfl: 3 furosemide (LASIX) 40 mg tablet^Take 1 tablet by mouth once daily. Please take 40 mg tablet 2 times per day, 3 times per week^Disp: 126 tablet^Rfl: 0 brimonidine (ALPHAGAN) 0.2 % ophthalmic solution^Use 1 Drop in both eyes twice daily.^Disp: 15 mL^Rfl: 4 finasteride (PROSCAR) 5 mg tablet^once daily.^Disp: ^Rfl: amLODIPine (NORVASC) 10 mg tablet^Take 10 mg by mouth once daily.^Disp: ^Rfl: metoprolol succinate ER (TOPROL XL) 100 mg^Take 1 tablet by mouth once daily.^Disp: 90 tablet^Rfl: 4 esomeprazole (NEXIUM) 40 mg capsule^Take 40 mg by mouth once daily.^Disp: ^Rfl: 5 docusate sodium (COLACE) 100 mg capsule^Take 100 mg by mouth twice daily.^Disp: ^Rfl: carbidopa-levodopa (SINEMET 25-100) 25-100 mg per tablet^Take 2 tablets by mouth three times daily. ^Disp: ^Rfl: FLOVENT HFA 110 mcg/actuation inhaler^Inhale 2 Puffs as instructed twice daily. ^Disp: ^Rfl: aspirin, enteric coated (ASPIRIN, ENTERIC COATED) 81 mg EC tablet^Take 81 mg by mouth once daily.^Disp: ^Rfl: allopurinol (ZYLOPRIM) 100 mg tablet^Take 100 mg by mouth twice daily. ^Disp: ^Rfl: pantoprazole DR (PROTONIX) 40 mg tablet^Take 40 mg by mouth once daily.^Disp: ^Rfl: (Patient not taking: No sig reported) REVIEW OF SYSTEMS: Review of Systems Constitutional: Negative for chills, fever, malaise/fatigue and weight loss. HENT: Negative for hearing loss and sore throat. Eyes: Negative for blurred vision and double vision. Respiratory: Negative. Cardiovascular: Positive for leg swelling. Negative for chest pain, palpitations, orthopnea, claudication and PND. Gastrointestinal: Negative. Genitourinary: Negative for dysuria, frequency, hematuria and urgency. Musculoskeletal: Negative. Skin: Negative. Neurological: Negative for dizziness, seizures, loss of consciousness, weakness and headaches. Endo/Heme/Allergies: Negative for environmental allergies. Does not bruise/bleed easily. Psychiatric/Behavioral: Negative for depression. PHYSICAL EXAMINATION: BP 120/64 Pulse 64 Wt 103.4 kg (228 lb) SpO2 98% BMI 43.08 kg/m General: Elderly somewhat obese gentleman sitting appears comfortable and in no apparent distress. He is alert and oriented x3. Difficulties noted with ambulation due to shuffling gait. HEENT: Carotid upstrokes are brisk bilaterally. No bruits detected. No JVD appreciated on today's examination. Pulmonary: Lungs are clear no rales, wheezes, rhonchi. Cardiovascular: Normal S1, S2 with regular rate and rhythm. No murmurs, rubs, or gallops appreciated. Extremities: Warm, well-perfused, bilateral lower extremity 3-4+ edema worse on the right than the left. Dorsalis pedis and posterior tibial pulses are 1-2+ and symmetric. Extensive ecchymosis of the left knee. CARDIOVASCULAR MEDICINE TESTING: Cardiac Catheteriztion 11/22/2019 LAD with prox LAD 80% stenosis MID LAD: 100% stenosis Circumflex artery: Mid circ 50% stenosis. Proximal 95% stenosis Right coronary artery: Prox RCA: 90% stenosis MID RCA: 95% stenosis Distal RCA 50% stenosis RT PDA Mid 50% stenosis Echocardiogram 10/07/2021: - Technically difficult exam due to body habitus. - Exam indication: s/p CABG - The left ventricle is normal in size. There is moderate concentric left ventricular hypertrophy. Left ventricular systolic function is normal. EF = 55 5% (visual est.) Indeterminate left ventricular diastolic dysfunction. - The right ventricle is normal in size. Right ventricular systolic function is low normal. - There are no significant valvular abnormalities. - Exam was compared with the prior CC echocardiographic exam performed on 02/19/2020, no significant change. Echocardiogram 02/19/20: CONCLUSIONS: - Technically difficult exam due to difficult parasternal window. - Exam indication: S/p CABG - The left ventricle is normal in size. There is severe septal left ventricular hypertrophy. Left ventricular systolic function is normal. EF = 57 5% (2D biplane) Definity contrast used for endocardial border detection. Left ventricular diastolic function was not evaluated due to AF. - The right ventricle is normal in size. Right ventricular systolic function is normal. - There is 1+ MR and TR. - Unable to visualize exact AV morphology. - Estimated right ventricular systolic pressure is 68 mmHg consistent with moderately severe pulmonary hypertension. Estimated right atrial pressure is 15 mmHg based on IVC assessment. - Exam was compared with the prior CC echocardiographic exam performed on 12/04/2019 (intraop NOBLE). DUAL LEAD ICD REMOTE EVALUATION 05/19/2022: PRESENTING EGM: /VS BATTERY STATUS: Estimated time remaining to PADILLA is 8.1 years COUNTERS SINCE: 02/17/2022 ATRIAL ARRHYTHMIAS: AF burden <0.1%. No EGMs for review. VENTRICULAR ARRHYTHMIAS: There have been no ventricular detections. LEAD MEASUREMENTS: Sensing is appropriate. Review of the lead impedance trends are normal. OTHER DIAGNOSTICS: RV pacing 0.2%. I have personally reviewed the Echocardiogram and Cardiac Catheterization/Percutaneous Coronary Intervention (PCI). IMPRESSION: Mr. Leavitt is a 76 year old gentleman with extensive cardiac history including coronary artery disease remote coronary intervention and most recent coronary bypass grafting November 2019 (LO-LAD, SVG-OM, SVG-PDA), prior history of cardiac arrest, history of atrial fibrillation and remote PVI 09/2005, history of AICD implantation, hypertension, diabetes, dyslipidemia, chronic diastolic heart failure, chronic kidney disease who presents for routine cardiology follow-up. PLAN AND RECOMMENDATIONS: 1. Coronary artery disease involving [place] coronary artery of [place] heart without angina pectoris - ICD9: 414.01, ICD10: I25.10 (primary diagnosis) No overt anginal symptoms. Continue current medical therapy and risk factor modification 2. Chronic diastolic congestive heart failure (HCC) - ICD9: 428.32, 428.0, ICD10: I50.32 10 pound weight gain with worsening lower extremity edema recent adenopathy 1059 g/mL have changed his Lasix to Demadex 20 mg. He will take 2 tablets daily for the next 1 week and then decrease to 1 tab daily. We also added spironolactone 25 mg once daily. He will need repeat nonfasting blood work in 2 to 3 weeks. - TORSEMIDE 20 MG TABLET - SPIRONOLACTONE 25 MG TABLET - BASIC METABOLIC PNL - NT PRO BNP 3. Paroxysmal atrial fibrillation (HCC) - ICD9: 427.31, ICD10: I48.0 History of remote PVI. He is not on anticoagulation therapy due to history of falls - ECG COMPLETE 4. Essential hypertension - ICD9: 401.9, ICD10: I10 Well-controlled on current regimen 5. Hyperlipidemia LDL goal <70 - ICD9: 272.4, ICD10: E78.5 Maintained on Crestor 10 mg daily. Fasting blood work has been followed by his primary care physician. 6. ICD (implantable cardioverter-defibrillator) in place - ICD9: V45.02, ICD10: Z95.810 Juliet Johnson MD documented in this encounter [facility] 05-27-2022 Miscellaneous Notes notified of below. Voices understanding. States pt will start taking the increased dose of lasix today and have blood work done early next week. Danielle Chowdary RN I ordered blood work. Agree with above Juliet Johnson MD Patient's called in stating that the patient has had a 10lb weight gain in the last 2 weeks. also states that the patient had not increased his lasix as ordered at [facility] and was only taking Lasix 40mg once a day. Starting last , 05/19/22, patient has taken a second dose twice. adds that she has noted patient to have increased chest congestion and coughing at night but denies any increase in edema or SOB. Next appointment with Dr Johnson is 06/06/22. This nurse advised patient to take the lasix as ordered and seek emergency care if having any increased edema, weight gain, and/or SOB. Please review and advise. Patrica Rivera RN documented in this encounter [facility] 05-24-2022 Miscellaneous Notes Call to and advised at [facility] Dr. Johnson did not mention any lab work prior to this visit. verbalized understanding. Gely calling and asking if patient needs lab work done prior to his appointment on 06/06? would like to be called when orders entered. documented in this encounter [facility] 05-02-2022 Miscellaneous Notes Spoke to . States needs refills on the following meds: Patient phones requesting refills as follows: Requested Prescriptions Pending Prescriptions Disp Refills potassium chloride (K-TAB) 10 mEq tablet 90 tablet 3 Sig: Take 1 tablet by mouth once daily. rosuvastatin (CRESTOR) 10 mg tablet 90 tablet 3 Sig: Take 1 tablet by mouth daily at bedtime. furosemide (LASIX) 40 mg tablet 126 tablet 0 Sig: Take 1 tablet by mouth once daily. Please take 40 mg tablet 2 times per day, 3 times per week Please review and advise. Danielle Chowdary RN Please review and advise. Danielle Chowdary RN Americo Hong s called. She would like to speak with someone in the cardiology office today. Gely received a phone call from [facility] this morning stating that [facility] had faxed prescriptions to the cardiology office for refills this morning. Gely has questions about what was faxed and what the medications are used for. Sana Booth RN documented in this encounter [facility] 02-08-2022 History of Presen t illness Narrative Assessment and Plan H40.1132 Primary open angle glaucoma (POAG) of both eyes, moderate stage (primary encounter diagnosis) Comment: Intraocular pressures appear stable with current treatment. Advise patient as to the risks of blindness with glaucoma. Advise patient as to status of condition and necessity of close monitoring as directed. Continue use of Brimonidine 0.2% 1 gt both eyes bid. Recheck glaucoma control in 6 months at Dilated fundus exam with update of OCT NFA and threshold Visual field. I have confirmed and edited as necessary the relevant ophthalmic history, ROS, and the neuro exam findings as obtained by others. I have seen and examined Americo Leavitt. I have discussed the case and the management of this patient's care with the Resident/Fellow, if applicable. I also have reviewed and agree with the assessment and plan as stated above and agree with all of its relevant components. Maritza Abraham II, OD documented in this encounter [facility] 01-17-2022 Miscellaneous Notes Patient phones requesting refills as follows: Requested Prescriptions Pending Prescriptions Disp Refills furosemide (LASIX) 40 mg tablet 126 tablet 0 Sig: Take 1 tablet by mouth once daily. Please take 40 mg tablet 2 times per day, 3 times per week Please review and advise. Gely David Martin states has been taking 1 daily and 1 extra tablet 2 times a week. documented in this encounter [facility] 11-22-2021 History of Presen t illness Narrative Images from the original note were not included. [facility]OLOGY Cardiology ([facility]) [address] [facility] [id number] OUTPATIENT VISIT DATE 11/22/2021 PRIMARY CARE PHYSICIAN: Juliet Decker, [address] [place] [address] HISTORY OF PRESENT ILLNESS: Mr. Leavitt is a 76 year old gentleman with a history of coronary artery disease coronary bypass grafting November 2019, prior history of percutaneous coronary intervention and cardiac arrest, history of AICD implantation, hypertension, dyslipidemia, diabetes ([id number]), obesity, obstructive sleep apnea on CPAP, Parkinson's disease, and chronic kidney disease who presents for routine follow-up. He has had very little change since his last office visit. The daughter informed me that he has occasional worsening swelling in his lower extremities. He is also noncompliant with his Lasix. He is mostly compliant with a low-sodium diet. They will increase his Lasix and he was briefly admitted to [facility]. He complains of having cold feet most of the time. He does not have symptoms of chest pain or pressure. However, he has limited functional capacity. He denies symptoms consistent with PND or orthopnea. He does have persistent lower extremity swelling. He also sits in a chair most of the day and does not keep his legs elevated. He denies feelings of palpitations, lightheadedness, dizziness, or syncope. PAST MEDICAL HISTORY Diagnosis Date Acute myocardial infarction of other specified sites 2003 Myocardial Infarction Arthritis Asthma Chest pain, unspecified 2003 Coronary atherosclerosis of unspecified type of vessel, [place] or graft 2003 Heart attack (HCC) Mixed hyperlipidemia Hyperlipidemia Parkinson disease (HCC) Type II or unspecified type diabetes mellitus without mention of complication, not stated as uncontrolled Unspecified essential hypertension 2002 Essential hypertension Unspecified sleep apnea 2005 Sleep apnea PAST SURGICAL HISTORY Procedure Laterality Date ANES PERMANENT TRANSVENOUS PACEMAKER INSERTION 12/2003 Permanent Pacemaker ICD (ICD) 2003 generator change 2010 LEFT HEART CATH,PERCUTANEOUS 02/2003 Cardiac cath, L heart PAST SURGICAL HISTORY OF Heart bypass- November 2019 PERC TRANSL COR ANGIO 12/2003 Percutaneous Transluminal Coronary Angio Status TRABECULOPLASTY BY LASER SURGERY Right 12-15-01 / 06-21-2017 Selective laser Trabeculoplasty (SLT) TRABECULOPLASTY BY LASER SURGERY Left 01-01-2018 / 07-12-2017 Selective laser Trabeculoplasty (SLT) XCAPSL CTRC RMVL INSJ IO LENS PROSTH W/O ECP Left 08/30/2018 Cataract Extraction with PC IOL XCAPSL CTRC RMVL INSJ IO LENS PROSTH W/O ECP Right 09/20/2018 Cataract Extraction with PC IOL SOCIAL HISTORY Social History Tobacco Use Smoking status: Former Types: Pipe Quit date: 05/30/1980 Years since quittin.5 Smokeless tobacco: Former Types: Chew Quit date: 05/30/1980 Vaping Use Vaping Use: Never used Substance Use Topics Alcohol use: No Drug use: No FAMILY HISTORY Problem Relation Age of Onset Coronary Artery Disease Father Diabetes Father Colon Cancer Father Diabetes Mother other (parkinson's disease) Mother None Sister No Ocular Disease No Family History ALLERGIES: ALLERGIES No Known Allergies MEDICATIONS: finasteride (PROSCAR) 5 mg tablet^once daily.^Disp: ^Rfl: brimonidine (ALPHAGAN) 0.2 % ophthalmic solution^Use 1 Drop in both eyes twice daily.^Disp: 10 mL^Rfl: 5 rosuvastatin (CRESTOR) 10 mg tablet^Take 1 tablet by mouth daily at bedtime.^Disp: 90 tablet^Rfl: 3 potassium chloride (K-TAB) 10 mEq tablet^Take 1 tablet by mouth once daily.^Disp: 90 tablet^Rfl: 3 furosemide (LASIX) 40 mg tablet^Take 1 tablet by mouth once daily. Please take 40 mg tablet 2 times per day, 3 times per week^Disp: 126 tablet^Rfl: 0 amLODIPine (NORVASC) 10 mg tablet^Take 10 mg by mouth once daily.^Disp: ^Rfl: metoprolol succinate ER (TOPROL XL) 100 mg^Take 1 tablet by mouth once daily.^Disp: 90 tablet^Rfl: 4 esomeprazole (NEXIUM) 40 mg capsule^Take 40 mg by mouth once daily.^Disp: ^Rfl: 5 docusate sodium (COLACE) 100 mg capsule^Take 100 mg by mouth twice daily.^Disp: ^Rfl: carbidopa-levodopa (SINEMET 25-100) 25-100 mg per tablet^Take 2 tablets by mouth three times daily. ^Disp: ^Rfl: FLOVENT HFA 110 mcg/actuation inhaler^Inhale 2 Puffs as instructed twice daily. ^Disp: ^Rfl: aspirin, enteric coated (ASPIRIN, ENTERIC COATED) 81 mg EC tablet^Take 81 mg by mouth once daily.^Disp: ^Rfl: allopurinol (ZYLOPRIM) 100 mg tablet^Take 100 mg by mouth twice daily. ^Disp: ^Rfl: pantoprazole DR (PROTONIX) 40 mg tablet^Take 40 mg by mouth once daily.^Disp: ^Rfl: (Patient not taking: Reported on 11/22/2021) REVIEW OF SYSTEMS: Review of Systems Constitutional: Negative for chills, fever, malaise/fatigue and weight loss. HENT: Negative for hearing loss and sore throat. Eyes: Negative for blurred vision and double vision. Respiratory: Negative. Cardiovascular: Positive for leg swelling. Negative for chest pain, palpitations, orthopnea, claudication and PND. Gastrointestinal: Negative. Genitourinary: Negative for dysuria, frequency, hematuria and urgency. Musculoskeletal: Negative. Skin: Negative. Neurological: Negative for dizziness, seizures, loss of consciousness, weakness and headaches. Endo/Heme/Allergies: Negative for environmental allergies. Does not bruise/bleed easily. Psychiatric/Behavioral: Negative for depression. PHYSICAL EXAMINATION: BP 114/56 Pulse (!) 56 Wt 100.7 kg (222 lb) SpO2 95% BMI 41.95 kg/m General: Elderly somewhat obese gentleman sitting appears comfortable and in no apparent distress. He is alert and oriented x3. Difficulties noted with ambulation due to shuffling gait. HEENT: Carotid upstrokes are brisk bilaterally. No bruits detected. No JVD appreciated on today's examination. Pulmonary: Lungs are clear no rales, wheezes, rhonchi. Cardiovascular: Normal S1, S2 with regular rate and rhythm. No murmurs, rubs, or gallops appreciated. Extremities: Warm, well-perfused, bilateral lower extremity edema worse on the right than the left. Dorsalis pedis and posterior tibial pulses are 1-2+ and symmetric. CARDIOVASCULAR MEDICINE TESTING: Cardiac Catheteriztion 11/22/2019 LAD with prox LAD 80% stenosis MID LAD: 100% stenosis Circumflex artery: Mid circ 50% stenosis. Proximal 95% stenosis Right coronary artery: Prox RCA: 90% stenosis MID RCA: 95% stenosis Distal RCA 50% stenosis RT PDA Mid 50% stenosis Echocardiogram 10/07/2021: - Technically difficult exam due to body habitus. - Exam indication: s/p CABG - The left ventricle is normal in size. There is moderate concentric left ventricular hypertrophy. Left ventricular systolic function is normal. EF = 55 5% (visual est.) Indeterminate left ventricular diastolic dysfunction. - The right ventricle is normal in size. Right ventricular systolic function is low normal. - There are no significant valvular abnormalities. - Exam was compared with the prior CC echocardiographic exam performed on 02/19/2020, no significant change. Echocardiogram 02/19/20: CONCLUSIONS: - Technically difficult exam due to difficult parasternal window. - Exam indication: S/p CABG - The left ventricle is normal in size. There is severe septal left ventricular hypertrophy. Left ventricular systolic function is normal. EF = 57 5% (2D biplane) Definity contrast used for endocardial border detection. Left ventricular diastolic function was not evaluated due to AF. - The right ventricle is normal in size. Right ventricular systolic function is normal. - There is 1+ MR and TR. - Unable to visualize exact AV morphology. - Estimated right ventricular systolic pressure is 68 mmHg consistent with moderately severe pulmonary hypertension. Estimated right atrial pressure is 15 mmHg based on IVC assessment. - Exam was compared with the prior CC echocardiographic exam performed on 12/04/2019 (intraop NOBLE). DUAL LEAD ICD REMOTE EVALUATION 11/18/2021: PRESENTING EGM: /CMS EXPERT/VS BATTERY STATUS: Estimated time remaining to PADILLA is 8.6 years COUNTERS SINCE : 08/19/2021 ATRIAL ARRHYTHMIAS: None VENTRICULAR ARRHYTHMIAS: There have been no ventricular detections. LEAD MEASUREMENTS: Sensing is appropriate. Review of the lead impedance trends are normal. OTHER DIAGNOSTICS: Total V pacing 0.1%. I have personally reviewed the Echocardiogram and Cardiac Catheterization/Percutaneous Coronary Intervention (PCI). IMPRESSION: Mr. Leavitt is a 76 year old gentleman with extensive cardiac history including coronary artery disease remote coronary intervention and most recent coronary bypass grafting November 2019 (LO-LAD, SVG-OM, SVG-PDA), prior history of cardiac arrest, history of atrial fibrillation and remote PVI 09/2005, history of AICD implantation, hypertension, diabetes, dyslipidemia, chronic diastolic heart failure, chronic kidney disease who presents for routine cardiology follow-up. PLAN AND RECOMMENDATIONS: 1. Coronary artery disease involving [place] coronary artery of [place] heart without angina pectoris - ICD9: 414.01, ICD10: I25.10 (primary diagnosis) No overt anginal symptoms. Plan to continue with conservative medical therapy given his overall medical condition. 2. Chronic diastolic congestive heart failure (HCC) - ICD9: 428.32, 428.0, ICD10: I50.32 Discussed the need to be compliant with Lasix daily with twice daily dosing 3 days/week. Discussed low-sodium diet. 3. Paroxysmal atrial fibrillation (HCC) - ICD9: 427.31, ICD10: I48.0 History of prior pulmonary vein isolation procedure. Patient has no symptoms concerning for recurrent atrial fibrillation. He is not on anticoagulation therapy due to his risk of falls. 4. Essential hypertension - ICD9: 401.9, ICD10: I10 Well-controlled on current regimen 5. Hyperlipidemia LDL goal <70 - ICD9: 272.4, ICD10: E78.5 Maintained on Crestor 10 mg daily. Blood work from November 19, 2021 was reviewed. LDL cholesterol 64 mg/dL 6. ICD (implantable cardioverter-defibrillator) in place - ICD9: V45.02, ICD10: Z95.810 Juliet Johnson MD documented in this encounter [facility] 10-29-2021 History of Presen t illness Narrative Orders pended in phone encounter. documented in this encounter [facility] 10-27-2021 Miscellaneous Notes Orders pended and routed to providers for review and signature. Call to pt, LVM on identified voicemail notifying orders were sent to provider and [facility] facility. Dr. Johnson, would you like blood work drawn prior to visit on 11/22? If so, please place orders and I will notify pt. Thank you! Danielle Chowdary RN Patient's called requesting to know when to expect orders for blood work to be submitted into his chart. She states that his after visit summary states that he is to receive blood work prior to his upcoming appointment on 11/22/21. documented in this encounter [facility] 10-08-2021 Miscellaneous Notes Spouse notified and verbalizes understanding. Natalie Yap LPN ----- Message from Minoo Reyes APRN.OCCUPATIONAL THERAPY DEPARTMENT CHAIR sent at 10/08/2021 7:44 AM EDT ----- Please call patient and notify them of results. called to report SOB and weight gain. BNP does not indicate significant volume overload or CHF. He has renal insuffiencey that remains at baseline. Echocardiogram is with stable function and largely unchanged from prior with EF 55%. I recommended he continue his current doses of medications. Review symptoms further with PCP and Dr. Johnson in November. Thank you! documented in this encounter [facility] 10-04-2021 Miscellaneous Notes Pt. calling in stating has been experiencing increased SOB and weight gain of around 8 lbs. This nurse discussed with Minoo Reyes NP. Minoo is going to order BNP to be drawn and echo. notified of this. Voices understanding. Appt with Dr. Johnson 11/22/21. Heart failure recommendations, diet, daily weight teachings reviewed with pt. Voiced understanding. Danielle Chowdary RN documented in this encounter [facility] 08-12-2021 Instructions Maritza Abraham II, OD - 08/12/2021 12:37 PM EDT Assessment and Plan H40.1132 Primary open angle glaucoma (POAG) of both eyes, moderate stage (primary encounter diagnosis) Comment: Intraocular pressures appear stable with current treatment. Advise patient as to the risks of blindness with glaucoma. Advise patient as to status of condition and necessity of close monitoring as directed. Continue use of Brimonidine 0.2% 1 gt both eyes bid. Recheck glaucoma control in 6 months. E11.9 Type 2 diabetes mellitus without retinopathy (HCC) Comment: Examination shows no ocular diabetic complications today. Discussed need for optimal diabetes control to minimize chance of ocular complications. Advise patient to immediately report worsening in status or additional symptoms. Continue yearly dilated eye examinations. Z96.1 Pseudophakia of both eyes Comment: Posterior chamber intraocular lenses are well positioned with trace Posterior capsular opacity. Observe. H35.3131 Early dry stage nonexudative age-related macular degeneration of both eyes Comment: Stable. Observe. 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 H52.223 Regular astigmatism of both eyes H52.4 Presbyopia Comment: Glasses power unchanged. I have confirmed and edited as necessary the relevant ophthalmic history, ROS, and the neuro exam findings as obtained by others. I have seen and examined Americo Leavitt. I have discussed the case and the management of this patient's care with the Resident/Fellow, if applicable. I also have reviewed and agree with the assessment and plan as stated above and agree with all of its relevant components. Maritza Abraham II, OD documented in this encounter [facility] 08-12-2021 History of Presen t illness Narrative Assessment and Plan H40.1132 Primary open angle glaucoma (POAG) of both eyes, moderate stage (primary encounter diagnosis) Comment: Intraocular pressures appear stable with current treatment. Advise patient as to the risks of blindness with glaucoma. Advise patient as to status of condition and necessity of close monitoring as directed. Continue use of Brimonidine 0.2% 1 gt both eyes bid. Recheck glaucoma control in 6 months. E11.9 Type 2 diabetes mellitus without retinopathy (HCC) Comment: Examination shows no ocular diabetic complications today. Discussed need for optimal diabetes control to minimize chance of ocular complications. Advise patient to immediately report worsening in status or additional symptoms. Continue yearly dilated eye examinations. Z96.1 Pseudophakia of both eyes Comment: Posterior chamber intraocular lenses are well positioned with trace Posterior capsular opacity. Observe. H35.3131 Early dry stage nonexudative age-related macular degeneration of both eyes Comment: Stable. Observe. 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 H52.223 Regular astigmatism of both eyes H52.4 Presbyopia Comment: Glasses power unchanged. I have confirmed and edited as necessary the relevant ophthalmic history, ROS, and the neuro exam findings as obtained by others. I have seen and examined Americo Leavitt. I have discussed the case and the management of this patient's care with the Resident/Fellow, if applicable. I also have reviewed and agree with the assessment and plan as stated above and agree with all of its relevant components. Maritza Abraham II, OD documented in this encounter [facility] 05-24-2021 Instructions Juliet Johnson MD - 05/24/2021 9:19 AM EDT We are changing the Lipitor to Crestor 10 mg once per day Repeat fasting blood work in Oct. documented in this encounter [facility] 05-24-2021 History of Presen t illness Narrative Images from the original note were not included. [facility]ARDIOLOGY Cardiology ([facility]) [address] [facility] [id number] OUTPATIENT VISIT DATE 05/24/2021 PRIMARY CARE PHYSICIAN: Juliet Decker DO [address] [place] [address] HISTORY OF PRESENT ILLNESS: Mr. Leavitt is a 75 year old gentleman with a history of coronary artery disease coronary bypass grafting November 2019, prior history of percutaneous coronary intervention and cardiac arrest, history of AICD implantation, hypertension, dyslipidemia, diabetes [id number], obesity, obstructive sleep apnea on CPAP and chronic kidney disease who presents for routine follow-up. Since his last visit, he tells me he has been doing well. He is frustrated because he was recently restricted from driving. From a functional standpoint, he continues to do well. He has had no chest pain or pressure. He informed me that the lower extremity swelling has been well controlled. He has been trying to weigh himself daily. He is also been more compliant with a low-sodium diet. He has not had symptoms concerning for PND orthopnea. He denies any feelings of palpitations, heart racing, or ICD discharges. His daughter informed me that he recently was seen by the neurologist who believes he has at least mild to moderate dementia. PAST MEDICAL HISTORY Diagnosis Date Acute myocardial infarction of other specified sites 2004 Myocardial Infarction Arthritis Asthma Chest pain, unspecified 2003 Coronary atherosclerosis of unspecified type of vessel, [place] or graft 2004 Heart attack (HCC) Mixed hyperlipidemia Hyperlipidemia Parkinson disease (HCC) Type II or unspecified type diabetes mellitus without mention of complication, not stated as uncontrolled Unspecified essential hypertension 2003 Essential hypertension Unspecified sleep apnea 2005 Sleep apnea PAST SURGICAL HISTORY Procedure Laterality Date ANES PERMANENT TRANSVENOUS PACEMAKER INSERTION 12/2003 Permanent Pacemaker ICD (ICD) 2003 generator change 2010 LEFT HEART CATH,PERCUTANEOUS 02/2003 Cardiac cath, L heart PAST SURGICAL HISTORY OF Heart bypass- November 2019 PERC TRANSL COR ANGIO 12/2003 Percutaneous Transluminal Coronary Angio Status TRABECULOPLASTY BY LASER SURGERY Right 12-15-01 / 06-21-2017 Selective laser Trabeculoplasty (SLT) TRABECULOPLASTY BY LASER SURGERY Left 01-01-2018 / 07-12-2017 Selective laser Trabeculoplasty (SLT) XCAPSL CTRC RMVL INSJ IO LENS PROSTH W/O ECP Left 08/30/2018 Cataract Extraction with PC IOL XCAPSL CTRC RMVL INSJ IO LENS PROSTH W/O ECP Right 09/20/2018 Cataract Extraction with PC IOL SOCIAL HISTORY Social History Tobacco Use Smoking status: Former Smoker Years: 4.00 Types: Pipe Quit date: 05/30/1980 Years since quittin.0 Smokeless tobacco: Former User Types: Chew Quit date: 05/30/1980 Vaping Use Vaping Use: Never used Substance Use Topics Alcohol use: No Drug use: No FAMILY HISTORY Problem Relation Age of Onset Coronary Artery Disease Father Diabetes Father Colon Cancer Father Diabetes Mother other (parkinson's disease) Mother None Sister No Ocular Disease No Family History ALLERGIES: ALLERGIES No Known Allergies MEDICATIONS: potassium chloride (K-TAB) 10 mEq tablet Take 1 tablet by mouth once daily. furosemide (LASIX) 40 mg tablet Take 1 tablet by mouth once daily. Please take 40 mg tablet 2 times per day, 3 times per week amLODIPine (NORVASC) 10 mg tablet Take 10 mg by mouth once daily. pantoprazole DR (PROTONIX) 40 mg tablet Take 40 mg by mouth once daily. brimonidine (ALPHAGAN) 0.2 % ophthalmic solution Use 1 Drop in both eyes twice daily. metoprolol succinate ER (TOPROL XL) 100 mg Take 1 tablet by mouth once daily. esomeprazole (NEXIUM) 40 mg capsule Take 40 mg by mouth once daily. docusate sodium (COLACE) 100 mg capsule Take 100 mg by mouth twice daily. carbidopa-levodopa (SINEMET 25-100) 25-100 mg per tablet Take 2 tablets by mouth three times daily. FLOVENT HFA 110 mcg/actuation inhaler Inhale 2 Puffs as instructed twice daily. aspirin, enteric coated (ASPIRIN, ENTERIC COATED) 81 mg EC tablet Take 81 mg by mouth once daily. allopurinol (ZYLOPRIM) 100 mg tablet Take 100 mg by mouth twice daily. atorvastatin (LIPITOR) 40 mg tablet Take 1 tablet by mouth daily at bedtime. REVIEW OF SYSTEMS: Review of Systems Constitutional: Negative for chills, fever, malaise/fatigue and weight loss. HENT: Negative for hearing loss and sore throat. Eyes: Negative for blurred vision and double vision. Respiratory: Negative. Cardiovascular: Positive for leg swelling. Negative for chest pain, palpitations, orthopnea, claudication and PND. Gastrointestinal: Negative. Genitourinary: Negative for dysuria, frequency, hematuria and urgency. Musculoskeletal: Negative. Skin: Negative. Neurological: Negative for dizziness, seizures, loss of consciousness, weakness and headaches. Endo/Heme/Allergies: Negative for environmental allergies. Does not bruise/bleed easily. Psychiatric/Behavioral: Negative for depression. PHYSICAL EXAMINATION: BP 124/68 (BP Site: Right Arm, BP Position: Sitting, BP Cuff Size: Large Adult) Pulse 60 Wt 100.7 kg (222 lb) BMI 41.95 kg/m General: Elderly somewhat obese gentleman sitting appears comfortable and in no apparent distress. He is alert and oriented x3. Difficulties noted with ambulation due to shuffling gait. HEENT: Carotid upstrokes are brisk bilaterally. No bruits detected. No JVD appreciated on today's examination. Pulmonary: Lungs are clear no rales, wheezes, rhonchi. Cardiovascular: Normal S1, S2 with regular rate and rhythm. No murmurs, rubs, or gallops appreciated. Extremities: Warm, well-perfused, bilateral lower extremity edema worse on the right than the left. Dorsalis pedis and posterior tibial pulses are 1-2+ and symmetric. CARDIOVASCULAR MEDICINE TESTING: Echocardiogram 02/19/20: CONCLUSIONS: - Technically difficult exam due to difficult parasternal window. - Exam indication: S/p CABG - The left ventricle is normal in size. There is severe septal left ventricular hypertrophy. Left ventricular systolic function is normal. EF = 57 5% (2D biplane) Definity contrast used for endocardial border detection. Left ventricular diastolic function was not evaluated due to AF. - The right ventricle is normal in size. Right ventricular systolic function is normal. - There is 1+ MR and TR. - Unable to visualize exact AV morphology. - Estimated right ventricular systolic pressure is 68 mmHg consistent with moderately severe pulmonary hypertension. Estimated right atrial pressure is 15 mmHg based on IVC assessment. - Exam was compared with the prior CC echocardiographic exam performed on 12/04/2019 (intraop NOBLE). Cardiac Catheteriztion 11/22/2019 LAD with prox LAD 80% stenosis MID LAD: 100% stenosis Circumflex artery: Mid circ 50% stenosis. Proximal 95% stenosis Right coronary artery: Prox RCA: 90% stenosis MID RCA: 95% stenosis Distal RCA 50% stenosis RT PDA Mid 50% stenosis I have personally reviewed the Echocardiogram and Cardiac Catheterization/Percutaneous Coronary Intervention (PCI). IMPRESSION: Mr. Leavitt is a 75 year old gentleman with extensive cardiac history including coronary artery disease remote coronary intervention and most recent coronary bypass grafting November 2019 (LO-LAD, SVG-OM, SVG-PDA), prior history of cardiac arrest, history of atrial fibrillation and remote PVI 09/2005, history of AICD implantation, hypertension, diabetes, dyslipidemia, chronic diastolic heart failure, chronic kidney disease who presents for routine cardiology follow-up. PLAN AND RECOMMENDATIONS: 1. Coronary artery disease involving [place] coronary artery of [place] heart without angina pectoris - ICD9: 414.01, ICD10: I25.10 (primary diagnosis) Doing well without symptoms concerning for angina. Continue current medical therapy and risk factor modification. 2. Chronic diastolic congestive heart failure (HCC) - ICD9: 428.32, 428.0, ICD10: I50.32 Patient has had improvement in lower extremity edema on his current dose of Lasix. Have recommended continued the 40 mg daily with increase to twice daily as needed for weight gain greater than 2 to 4 pounds or worsening lower extremity edema. 3. Paroxysmal atrial fibrillation (HCC) - ICD9: 427.31, ICD10: I48.0 History of prior ulnar vein isolation procedure. No symptomatic recurrence 4. Essential hypertension - ICD9: 401.9, ICD10: I10 Well-controlled on current regimen 5. Hyperlipidemia LDL goal <70 - ICD9: 272.4, ICD10: E78.5 Patient believes he is having symptoms secondary to Lipitor. I reviewed his last fasting lipid panel. His LDL cholesterol is 58 mg/dL. We will attempt a trial of Crestor 10 mg daily with repeat blood work in 3 to 4 months - ROSUVASTATIN 10 MG TABLET - ALT/SGPT - AST/SGOT BLD - LIPID PANEL BASIC 6. ICD (implantable cardioverter-defibrillator) in place - ICD9: V45.02, ICD10: Z95.810 7. Obesity, Class III, BMI 40-49.9 (morbid obesity) (HCC) - ICD9: 278.01, ICD10: E66.01 Juliet Johnson MD documented in this encounter [facility] 05-14-2021 Miscellaneous Notes Left detailed message to inform. Geneva Goode Images from the original note were not included. LEWIS Blanton Labs reviewed. Do not need any labs repeated for Dr. Johnson. Script signed. Thank you! Message text External labs scanned into [facility] for review. Patient phones requesting refills as follows: Pending Prescriptions Disp Refills POTASSIUM CHLORIDE ER 10 MEQ TABLET,EXTENDED RELEASE 90 tablet 4 Sig: Take 1 tablet by mouth once daily. JAZIEL: No Please review and advise. Geneva Goode Labs requested via fax from Dr. Garcia's office. Await results, have provider review and request the Potassium refill that is pended. Geneva Goode Images from the original note were not included. LEWIS Blanton Ask them to please forward most recent lab results from PCP. If PCP just atilio lab work it likely does not need repeated for Dr. Johnson. Thank you! Message text , Gely siddiqui ands states is to have lab work done next week prior to his follow up appointment on 05/24/21. states he just had fasting blood work done by Yosvany Gacria his PCP. If he needs new labs done he will need orders. Also, states he needs a refill for Potassium. States he was told by his PCP it was fine. asking if that needs to be checked prior to getting a refill? Wants Rx sent to [facility] in [place]. documented in this encounter [facility] documented as of this encounter (statuses as of 05/14/2021) [facility] History of Past illness Narrative* Problem Noted Date Resolved Date Pain, postoperative, acute 12/04/201912/10 Overview: Well controlled pain, does not require CLERK OF SCALES On mechanically assisted ventilation 12/04/2019 12/09/2019 Acute blood loss anemia 12/04/2019 12/11/19 Preop testing 11/28/2019 12/11/2019 Overview: [facility] PRE-OP CHECKLIST Surgeon: Dr. John Leavitt Informed Consent Completed: No STS Score: CABG CAD: Yes - CAD on Problem List: Yes Is intended procedure a CABG: Yes - is a beta melissa ordered? Yes H & P completed: Yes PA/LAT: Completed CT: Completed MRI: N/A LE US: na Cath: Yes - reviewed: Yes EKG: Completed Is patient on Amiodarone? Yes Echo:pemding, previously EF normal. PI's: Completed Carotid: Completed Mapping: Completed Dental: N/A PFT's: Completed CBC, Coags, BMP, Mg, Phos Recent Labs 11/29/19 0406 11/28/19 1902 11/28/19 1235 11/28/19 0344 11/27/19 0409 WBC 7.15 -- -- 6.83 7.53 HB 12.6* -- -- 12.3* 12.5* HCT 40.9 -- -- 39.5 39.6 PLT 202 -- -- 217 208 INR 1.2 -- -- 1.2 1.2 APTT 67.6* 47.0* 52.5* 76.1* 66.3* NA 140 -- -- 141 141 K 3.6* -- -- 3.7 3.6* CHLOR 103 -- -- 102 105 CO2 23 -- -- 25 24 BUN 20 -- -- 23 28* CREAT 1.50* -- -- 1.47* 1.54* GLUC 88 -- -- 103* 88 CA 9.6 -- -- 9.2 9.4 MG 2.0 -- -- 2.1 2.1 P 2.8 -- -- 3.6 4.0 UA: Normal HCG:N/A ABO/ABO Confirmed: Yes Blood ordered: Yes Willing to accept blood: Yes SA Swab: Yes - results: Negative Last Dose of Anticoagulation: Plavix LD 11/23, Heparin drip Op Note: N/A ICD Check: Yes Implants: no Consults: swallowing eval DM: Yes Cardiac Surgical prep: Yes SIGNATURE: Jayda Hernández RN THERAPIST.OCCUPATIONAL THERAPY DEPARTMENT CHAIR DATE of SERVICE: 11/28/2019 TIME of SERVICE: 10:59 AM CHECKED BY: Combined forms of age-related cataract of right eye 05/18/2017 11/26/2018 documented as of this encounter (statuses as of 05/20/2021) [facility] History of Past illness Narrative* Problem Noted Date Resolved Date Pain, postoperative, acute 12/04/201912/10 Overview: Well controlled pain, does not require CLERK OF SCALES On mechanically assisted ventilation 12/04/2019 12/09/2019 Acute blood loss anemia 12/04/2019 12/11/19 20 Preop testing 11/28/2019 12/11/2019 Overview: [facility] PRE-OP CHECKLIST Surgeon: Dr. John Leavitt Informed Consent Completed: No STS Score: CABG CAD: Yes - CAD on Problem List: Yes Is intended procedure a CABG: Yes - is a beta melissa ordered? Yes H & P completed: Yes PA/LAT: Completed CT: Completed MRI: N/A LE US: na Cath: Yes - reviewed: Yes EKG: Completed Is patient on Amiodarone? Yes Echo:pemding, previously EF normal. PI's: Completed Carotid: Completed Mapping: Completed Dental: N/A PFT's: Completed CBC, Coags, BMP, Mg, Phos Recent Labs 11/29/19 0406 11/28/19 1902 11/28/19 1235 11/28/19 0344 11/27/19 0409 WBC 7.15 -- -- 6.83 7.53 HB 12.6* -- -- 12.3* 12.5* HCT 40.9 -- -- 39.5 39.6 PLT 202 -- -- 217 208 INR 1.2 -- -- 1.2 1.2 APTT 67.6* 47.0* 52.5* 76.1* 66.3* NA 140 -- -- 141 141 K 3.6* -- -- 3.7 3.6* CHLOR 103 -- -- 102 105 CO2 23 -- -- 25 24 BUN 20 -- -- 23 28* CREAT 1.50* -- -- 1.47* 1.54* GLUC 88 -- -- 103* 88 CA 9.6 -- -- 9.2 9.4 MG 2.0 -- -- 2.1 2.1 P 2.8 -- -- 3.6 4.0 UA: Normal HCG:N/A ABO/ABO Confirmed: Yes Blood ordered: Yes Willing to accept blood: Yes SA Swab: Yes - results: Negative Last Dose of Anticoagulation: Plavix LD 11/23, Heparin drip Op Note: N/A ICD Check: Yes Implants: no Consults: swallowing eval DM: Yes Cardiac Surgical prep: Yes SIGNATURE: Jayda Hernández RN THERAPIST.OCCUPATIONAL THERAPY DEPARTMENT CHAIR DATE of SERVICE: 11/28/2019 TIME of SERVICE: 10:59 AM CHECKED BY: Combined forms of age-related cataract of right eye 05/18/2017 11/26/2018 documented as of this encounter (statuses as of 05/24/2021) [facility] History of Past illness Narrative* Problem Noted Date Resolved Date Pain, postoperative, acute 12/04/201912/10 Overview: Well controlled pain, does not require CLERK OF SCALES On mechanically assisted ventilation 12/04/2019 12/09/2019 Acute blood loss anemia 12/04/2019 12/11/19 20 Preop testing 11/28/2019 12/11/2019 Overview: [facility] PRE-OP CHECKLIST Surgeon: Dr. John Leavitt Informed Consent Completed: No STS Score: CABG CAD: Yes - CAD on Problem List: Yes Is intended procedure a CABG: Yes - is a beta melissa ordered? Yes H & P completed: Yes PA/LAT: Completed CT: Completed MRI: N/A LE US: na Cath: Yes - reviewed: Yes EKG: Completed Is patient on Amiodarone? Yes Echo:pemding, previously EF normal. PI's: Completed Carotid: Completed Mapping: Completed Dental: N/A PFT's: Completed CBC, Coags, BMP, Mg, Phos Recent Labs 11/29/19 0406 11/28/19 1902 11/28/19 1235 11/28/19 0344 11/27/19 0409 WBC 7.15 -- -- 6.83 7.53 HB 12.6* -- -- 12.3* 12.5* HCT 40.9 -- -- 39.5 39.6 PLT 202 -- -- 217 208 INR 1.2 -- -- 1.2 1.2 APTT 67.6* 47.0* 52.5* 76.1* 66.3* NA 140 -- -- 141 141 K 3.6* -- -- 3.7 3.6* CHLOR 103 -- -- 102 105 CO2 23 -- -- 25 24 BUN 20 -- -- 23 28* CREAT 1.50* -- -- 1.47* 1.54* GLUC 88 -- -- 103* 88 CA 9.6 -- -- 9.2 9.4 MG 2.0 -- -- 2.1 2.1 P 2.8 -- -- 3.6 4.0 UA: Normal HCG:N/A ABO/ABO Confirmed: Yes Blood ordered: Yes Willing to accept blood: Yes SA Swab: Yes - results: Negative Last Dose of Anticoagulation: Plavix LD 11/23, Heparin drip Op Note: N/A ICD Check: Yes Implants: no Consults: swallowing eval DM: Yes Cardiac Surgical prep: Yes SIGNATURE: Jayda Hernández RN THERAPIST.OCCUPATIONAL THERAPY DEPARTMENT CHAIR DATE of SERVICE: 11/28/2019 TIME of SERVICE: 10:59 AM CHECKED BY: Combined forms of age-related cataract of right eye 05/18/2017 11/26/2018 documented as of this encounter (statuses as of 08/12/2021) [facility] History of Past illness Narrative* Problem Noted Date Resolved Date Pain, postoperative, acute 12/04/201912/10 Overview: Well controlled pain, does not require CLERK OF SCALES On mechanically assisted ventilation 12/04/2019 12/09/2019 Acute blood loss anemia 12/04/2019 12/11/19 20 Preop testing 11/28/2019 12/11/2019 Overview[facility] PRE-OP CHECKLIST Surgeon: Dr. John Leavitt Informed Consent Completed: No STS Score: CABG CAD: Yes - CAD on Problem List: Yes Is intended procedure a CABG: Yes - is a beta melissa ordered? Yes H & P completed: Yes PA/LAT: Completed CT: Completed MRI: N/A LE US: na Cath: Yes - reviewed: Yes EKG: Completed Is patient on Amiodarone? Yes Echo:pemding, previously EF normal. PI's: Completed Carotid: Completed Mapping: Completed Dental: N/A PFT's: Completed CBC, Coags, BMP, Mg, Phos Recent Labs 11/29/19 0406 11/28/19 1902 11/28/19 1235 11/28/19 0344 11/27/19 0409 WBC 7.15 -- -- 6.83 7.53 HB 12.6* -- -- 12.3* 12.5* HCT 40.9 -- -- 39.5 39.6 PLT 202 -- -- 217 208 INR 1.2 -- -- 1.2 1.2 APTT 67.6* 47.0* 52.5* 76.1* 66.3* NA 140 -- -- 141 141 K 3.6* -- -- 3.7 3.6* CHLOR 103 -- -- 102 105 CO2 23 -- -- 25 24 BUN 20 -- -- 23 28* CREAT 1.50* -- -- 1.47* 1.54* GLUC 88 -- -- 103* 88 CA 9.6 -- -- 9.2 9.4 MG 2.0 -- -- 2.1 2.1 P 2.8 -- -- 3.6 4.0 UA: Normal HCG:N/A ABO/ABO Confirmed: Yes Blood ordered: Yes Willing to accept blood: Yes SA Swab: Yes - results: Negative Last Dose of Anticoagulation: Plavix LD 11/23, Heparin drip Op Note: N/A ICD Check: Yes Implants: no Consults: swallowing eval DM: Yes Cardiac Surgical prep: Yes SIGNATURE: Jayda Hernández RN THERAPIST.OCCUPATIONAL THERAPY DEPARTMENT CHAIR DATE of SERVICE: 11/28/2019 TIME of SERVICE: 10:59 AM CHECKED BY: Combined forms of age-related cataract of right eye 05/18/2017 11/26/2018 documented as of this encounter (statuses as of 10/04/2021) [facility] History of Past illness Narrative* Problem Noted Date Resolved Date Pain, postoperative, acute 12/04/201912/10 Overview: Well controlled pain, does not require CLERK OF SCALES On mechanically assisted ventilation 12/04/2019 12/09/2019 Acute blood loss anemia 12/04/2019 12/11/19 20 Preop testing 11/28/2019 12/11/2019 Overview[facility] PRE-OP CHECKLIST Surgeon: Dr. John Leavitt Informed Consent Completed: No STS Score: CABG CAD: Yes - CAD on Problem List: Yes Is intended procedure a CABG: Yes - is a beta melissa ordered? Yes H & P completed: Yes PA/LAT: Completed CT: Completed MRI: N/A LE US: na Cath: Yes - reviewed: Yes EKG: Completed Is patient on Amiodarone? Yes Echo:pemding, previously EF normal. PI's: Completed Carotid: Completed Mapping: Completed Dental: N/A PFT's: Completed CBC, Coags, BMP, Mg, Phos Recent Labs 11/29/19 0406 11/28/19 1902 11/28/19 1235 11/28/19 0344 11/27/19 0409 WBC 7.15 -- -- 6.83 7.53 HB 12.6* -- -- 12.3* 12.5* HCT 40.9 -- -- 39.5 39.6 PLT 202 -- -- 217 208 INR 1.2 -- -- 1.2 1.2 APTT 67.6* 47.0* 52.5* 76.1* 66.3* NA 140 -- -- 141 141 K 3.6* -- -- 3.7 3.6* CHLOR 103 -- -- 102 105 CO2 23 -- -- 25 24 BUN 20 -- -- 23 28* CREAT 1.50* -- -- 1.47* 1.54* GLUC 88 -- -- 103* 88 CA 9.6 -- -- 9.2 9.4 MG 2.0 -- -- 2.1 2.1 P 2.8 -- -- 3.6 4.0 UA: Normal HCG:N/A ABO/ABO Confirmed: Yes Blood ordered: Yes Willing to accept blood: Yes SA Swab: Yes - results: Negative Last Dose of Anticoagulation: Plavix LD 11/23, Heparin drip Op Note: N/A ICD Check: Yes Implants: no Consults: swallowing eval DM: Yes Cardiac Surgical prep: Yes SIGNATURE: Jayda Hernández RN THERAPIST.OCCUPATIONAL THERAPY DEPARTMENT CHAIR DATE of SERVICE: 11/28/2019 TIME of SERVICE: 10:59 AM CHECKED BY: Combined forms of age-related cataract of right eye 05/18/2017 11/26/2018 documented as of this encounter (statuses as of 10/08/2021) [facility] History of Past illness Narrative* Problem Noted Date Resolved Date Pain, postoperative, acute 12/04/201912/10 Overview: Well controlled pain, does not require CLERK OF SCALES On mechanically assisted ventilation 12/04/2019 12/09/2019 Acute blood loss anemia 12/04/2019 12/11/19 20 Preop testing 11/28/2019 12/11/2019 [facility]: [facility] PRE-OP CHECKLIST Surgeon: Dr. John Leavitt Informed Consent Completed: No STS Score: CABG CAD: Yes - CAD on Problem List: Yes Is intended procedure a CABG: Yes - is a beta melissa ordered? Yes H & P completed: Yes PA/LAT: Completed CT: Completed MRI: N/A LE US: na Cath: Yes - reviewed: Yes EKG: Completed Is patient on Amiodarone? Yes Echo:enading, previously EF normal. PI's: Completed Carotid: Completed Mapping: Completed Dental: N/A PFT's: Completed CBC, Coags, BMP, Mg, Phos Recent Labs 11/29/19 0406 11/28/19 1902 11/28/19 1235 11/28/19 0344 11/27/19 0409 WBC 7.15 -- -- 6.83 7.53 HB 12.6* -- -- 12.3* 12.5* HCT 40.9 -- -- 39.5 39.6 PLT 202 -- -- 217 208 INR 1.2 -- -- 1.2 1.2 APTT 67.6* 47.0* 52.5* 76.1* 66.3* NA 140 -- -- 141 141 K 3.6* -- -- 3.7 3.6* CHLOR 103 -- -- 102 105 CO2 23 -- -- 25 24 BUN 20 -- -- 23 28* CREAT 1.50* -- -- 1.47* 1.54* GLUC 88 -- -- 103* 88 CA 9.6 -- -- 9.2 9.4 MG 2.0 -- -- 2.1 2.1 P 2.8 -- -- 3.6 4.0 UA: Normal HCG:N/A ABO/ABO Confirmed: Yes Blood ordered: Yes Willing to accept blood: Yes SA Swab: Yes - results: Negative Last Dose of Anticoagulation: Plavix LD 11/23, Heparin drip Op Note: N/A ICD Check: Yes Implants: no Consults: swallowing eval DM: Yes Cardiac Surgical prep: Yes SIGNATURE: Jayda Hernández RN THERAPIST.OCCUPATIONAL THERAPY DEPARTMENT CHAIR DATE of SERVICE: 11/28/2019 TIME of SERVICE: 10:59 AM CHECKED BY: Combined forms of age-related cataract of right eye 05/18/2017 11/26/2018 documented as of this encounter (statuses as of 10/27/2021) [facility] History of Past illness Narrative* Problem Noted Date Resolved Date Pain, postoperative, acute 12/04/201912/10 Overview: Well controlled pain, does not require CLERK OF SCALES On mechanically assisted ventilation 12/04/2019 12/09/2019 Acute blood loss anemia 12/04/2019 12/11/19 Preop testing 11/28/2019 12/11/2019 [facility] Surgeon: Dr. John Leavitt Informed Consent Completed: No STS Score: CABG CAD: Yes - CAD on Problem List: Yes Is intended procedure a CABG: Yes - is a beta melissa ordered? Yes H & P completed: Yes PA/LAT: Completed CT: Completed MRI: N/A LE US: na Cath: Yes - reviewed: Yes EKG: Completed Is patient on Amiodarone? Yes Echo:pemding, previously EF normal. PI's: Completed Carotid: Completed Mapping: Completed Dental: N/A PFT's: Completed CBC, Coags, BMP, Mg, Phos Recent Labs 11/29/19 0406 11/28/19 1902 11/28/19 1235 11/28/19 0344 11/27/19 0409 WBC 7.15 -- -- 6.83 7.53 HB 12.6* -- -- 12.3* 12.5* HCT 40.9 -- -- 39.5 39.6 PLT 202 -- -- 217 208 INR 1.2 -- -- 1.2 1.2 APTT 67.6* 47.0* 52.5* 76.1* 66.3* NA 140 -- -- 141 141 K 3.6* -- -- 3.7 3.6* CHLOR 103 -- -- 102 105 CO2 23 -- -- 25 24 BUN 20 -- -- 23 28* CREAT 1.50* -- -- 1.47* 1.54* GLUC 88 -- -- 103* 88 CA 9.6 -- -- 9.2 9.4 MG 2.0 -- -- 2.1 2.1 P 2.8 -- -- 3.6 4.0 UA: Normal HCG:N/A ABO/ABO Confirmed: Yes Blood ordered: Yes Willing to accept blood: Yes SA Swab: Yes - results: Negative Last Dose of Anticoagulation: Plavix LD 11/23, Heparin drip Op Note: N/A ICD Check: Yes Implants: no Consults: swallowing eval DM: Yes Cardiac Surgical prep: Yes SIGNATURE: Jayda Hernández RN THERAPIST.OCCUPATIONAL THERAPY DEPARTMENT CHAIR DATE of SERVICE: 11/28/2019 TIME of SERVICE: 10:59 AM CHECKED BY: Combined forms of age-related cataract of right eye 05/18/2017 11/26/2018 documented as of this encounter (statuses as of 10/29/2021) [facility] History of Past illness Narrative* Problem Noted Date Resolved Date Pain, postoperative, acute 12/04/201912/10 Overview: Well controlled pain, does not require CLERK OF SCALES On mechanically assisted ventilation 12/04/2019 12/09/2019 Acute blood loss anemia 12/04/2019 12/11/19 Preop testing 11/28/2019 12/11/2019 [facility] Surgeon: Dr. John Leavitt Informed Consent Completed: No STS Score: CABG CAD: Yes - CAD on Problem List: Yes Is intended procedure a CABG: Yes - is a beta melissa ordered? Yes H & P completed: Yes PA/LAT: Completed CT: Completed MRI: N/A LE US: na Cath: Yes - reviewed: Yes EKG: Completed Is patient on Amiodarone? Yes Echo:valerio, previously EF normal. PI's: Completed Carotid: Completed Mapping: Completed Dental: N/A PFT's: Completed CBC, Coags, BMP, Mg, Phos Recent Labs 11/29/19 0406 11/28/19 1902 11/28/19 1235 11/28/19 0344 11/27/19 0409 WBC 7.15 -- -- 6.83 7.53 HB 12.6* -- -- 12.3* 12.5* HCT 40.9 -- -- 39.5 39.6 PLT 202 -- -- 217 208 INR 1.2 -- -- 1.2 1.2 APTT 67.6* 47.0* 52.5* 76.1* 66.3* NA 140 -- -- 141 141 K 3.6* -- -- 3.7 3.6* CHLOR 103 -- -- 102 105 CO2 23 -- -- 25 24 BUN 20 -- -- 23 28* CREAT 1.50* -- -- 1.47* 1.54* GLUC 88 -- -- 103* 88 CA 9.6 -- -- 9.2 9.4 MG 2.0 -- -- 2.1 2.1 P 2.8 -- -- 3.6 4.0 UA: Normal HCG:N/A ABO/ABO Confirmed: Yes Blood ordered: Yes Willing to accept blood: Yes SA Swab: Yes - results: Negative Last Dose of Anticoagulation: Plavix LD 11/23, Heparin drip Op Note: N/A ICD Check: Yes Implants: no Consults: swallowing eval DM: Yes Cardiac Surgical prep: Yes SIGNATURE: Jayda Hernández RN THERAPIST.OCCUPATIONAL THERAPY DEPARTMENT CHAIR DATE of SERVICE: 11/28/2019 TIME of SERVICE: 10:59 AM CHECKED BY: Combined forms of age-related cataract of right eye 05/18/2017 11/26/2018 documented as of this encounter (statuses as of 11/18/2021) [facility] History of Past illness Narrative* Problem Noted Date Resolved Date Pain, postoperative, acute 12/04/201912/10 Overview: Well controlled pain, does not require CLERK OF SCALES On mechanically assisted ventilation 12/04/2019 12/09/2019 Acute blood loss anemia 12/04/2019 12/11/19 20 Preop testing 11/28/2019 12/11/2019 [facility] Surgeon: Dr. John Leavitt Informed Consent Completed: No STS Score: CABG CAD: Yes - CAD on Problem List: Yes Is intended procedure a CABG: Yes - is a beta melissa ordered? Yes H & P completed: Yes PA/LAT: Completed CT: Completed MRI: N/A LE US: na Cath: Yes - reviewed: Yes EKG: Completed Is patient on Amiodarone? Yes Echo:pemding, previously EF normal. PI's: Completed Carotid: Completed Mapping: Completed Dental: N/A PFT's: Completed CBC, Coags, BMP, Mg, Phos Recent Labs 11/29/19 0406 11/28/19 1902 11/28/19 1235 11/28/19 0344 11/27/19 0409 WBC 7.15 -- -- 6.83 7.53 HB 12.6* -- -- 12.3* 12.5* HCT 40.9 -- -- 39.5 39.6 PLT 202 -- -- 217 208 INR 1.2 -- -- 1.2 1.2 APTT 67.6* 47.0* 52.5* 76.1* 66.3* NA 140 -- -- 141 141 K 3.6* -- -- 3.7 3.6* CHLOR 103 -- -- 102 105 CO2 23 -- -- 25 24 BUN 20 -- -- 23 28* CREAT 1.50* -- -- 1.47* 1.54* GLUC 88 -- -- 103* 88 CA 9.6 -- -- 9.2 9.4 MG 2.0 -- -- 2.1 2.1 P 2.8 -- -- 3.6 4.0 UA: Normal HCG:N/A ABO/ABO Confirmed: Yes Blood ordered: Yes Willing to accept blood: Yes SA Swab: Yes - results: Negative Last Dose of Anticoagulation: Plavix LD 11/23, Heparin drip Op Note: N/A ICD Check: Yes Implants: no Consults: swallowing eval DM: Yes Cardiac Surgical prep: Yes SIGNATURE: Jayda Hernández RN THERAPIST.OCCUPATIONAL THERAPY DEPARTMENT CHAIR DATE of SERVICE: 11/28/2019 TIME of SERVICE: 10:59 AM CHECKED BY: Combined forms of age-related cataract of right eye 05/18/2017 11/26/2018 documented as of this encounter (statuses as of 11/22/2021) [facility] History of Past illness Narrative* Problem Noted Date Resolved Date Pain, postoperative, acute 12/04/201912/10 Overview: Well controlled pain, does not require CLERK OF SCALES On mechanically assisted ventilation 12/04/2019 12/09/2019 Acute blood loss anemia 12/04/2019 12/11/19 20 Preop testing 11/28/2019 12/11/2019 [facility] Surgeon: Dr. John Leavitt Informed Consent Completed: No STS Score: CABG CAD: Yes - CAD on Problem List: Yes Is intended procedure a CABG: Yes - is a beta melissa ordered? Yes H & P completed: Yes PA/LAT: Completed CT: Completed MRI: N/A LE US: na Cath: Yes - reviewed: Yes EKG: Completed Is patient on Amiodarone? Yes Echo:enading, previously EF normal. PI's: Completed Carotid: Completed Mapping: Completed Dental: N/A PFT's: Completed CBC, Coags, BMP, Mg, Phos Recent Labs 11/29/19 0406 11/28/19 1902 11/28/19 1235 11/28/19 0344 11/27/19 0409 WBC 7.15 -- -- 6.83 7.53 HB 12.6* -- -- 12.3* 12.5* HCT 40.9 -- -- 39.5 39.6 PLT 202 -- -- 217 208 INR 1.2 -- -- 1.2 1.2 APTT 67.6* 47.0* 52.5* 76.1* 66.3* NA 140 -- -- 141 141 K 3.6* -- -- 3.7 3.6* CHLOR 103 -- -- 102 105 CO2 23 -- -- 25 24 BUN 20 -- -- 23 28* CREAT 1.50* -- -- 1.47* 1.54* GLUC 88 -- -- 103* 88 CA 9.6 -- -- 9.2 9.4 MG 2.0 -- -- 2.1 2.1 P 2.8 -- -- 3.6 4.0 UA: Normal HCG:N/A ABO/ABO Confirmed: Yes Blood ordered: Yes Willing to accept blood: Yes SA Swab: Yes - results: Negative Last Dose of Anticoagulation: Plavix LD 11/23, Heparin drip Op Note: N/A ICD Check: Yes Implants: no Consults: swallowing eval DM: Yes Cardiac Surgical prep: Yes SIGNATURE: Jayda Hernández RN THERAPIST.OCCUPATIONAL THERAPY DEPARTMENT CHAIR DATE of SERVICE: 11/28/2019 TIME of SERVICE: 10:59 AM CHECKED BY: Combined forms of age-related cataract of right eye 05/18/2017 11/26/2018 documented as of this encounter (statuses as of 01/17/2022) [facility] History of Past illness Narrative* Problem Noted Date Resolved Date Pain, postoperative, acute 12/04/201912/10 Overview: Well controlled pain, does not require CLERK OF SCALES On mechanically assisted ventilation 12/04/2019 12/09/2019 Acute blood loss anemia 12/04/2019 12/11/19 20 Preop testing 11/28/2019 12/11/2019 [facility] Surgeon: Dr. John Leavitt Informed Consent Completed: No STS Score: CABG CAD: Yes - CAD on Problem List: Yes Is intended procedure a CABG: Yes - is a beta melissa ordered? Yes H & P completed: Yes PA/LAT: Completed CT: Completed MRI: N/A LE US: na Cath: Yes - reviewed: Yes EKG: Completed Is patient on Amiodarone? Yes Echo:pemding, previously EF normal. PI's: Completed Carotid: Completed Mapping: Completed Dental: N/A PFT's: Completed CBC, Coags, BMP, Mg, Phos Recent Labs 11/29/19 0406 11/28/19 1902 11/28/19 1235 11/28/19 0344 11/27/19 0409 WBC 7.15 -- -- 6.83 7.53 HB 12.6* -- -- 12.3* 12.5* HCT 40.9 -- -- 39.5 39.6 PLT 202 -- -- 217 208 INR 1.2 -- -- 1.2 1.2 APTT 67.6* 47.0* 52.5* 76.1* 66.3* NA 140 -- -- 141 141 K 3.6* -- -- 3.7 3.6* CHLOR 103 -- -- 102 105 CO2 23 -- -- 25 24 BUN 20 -- -- 23 28* CREAT 1.50* -- -- 1.47* 1.54* GLUC 88 -- -- 103* 88 CA 9.6 -- -- 9.2 9.4 MG 2.0 -- -- 2.1 2.1 P 2.8 -- -- 3.6 4.0 UA: Normal HCG:N/A ABO/ABO Confirmed: Yes Blood ordered: Yes Willing to accept blood: Yes SA Swab: Yes - results: Negative Last Dose of Anticoagulation: Plavix LD 11/23, Heparin drip Op Note: N/A ICD Check: Yes Implants: no Consults: swallowing eval DM: Yes Cardiac Surgical prep: Yes SIGNATURE: Jayda Hernández RN THERAPIST.OCCUPATIONAL THERAPY DEPARTMENT CHAIR DATE of SERVICE: 11/28/2019 TIME of SERVICE: 10:59 AM CHECKED BY: Combined forms of age-related cataract of right eye 05/18/2017 11/26/2018 documented as of this encounter (statuses as of 02/13/2022) [facility] History of Past illness Narrative* Problem Noted Date Resolved Date Pain, postoperative, acute 12/04/201912/10 Overview: Well controlled pain, does not require CLERK OF SCALES On mechanically assisted ventilation 12/04/2019 12/09/2019 Acute blood loss anemia 12/04/2019 12/11/19 20 Preop testing 11/28/2019 12/11/2019 [facility] Surgeon: Dr. John Leavitt Informed Consent Completed: No STS Score: CABG CAD: Yes - CAD on Problem List: Yes Is intended procedure a CABG: Yes - is a beta melissa ordered? Yes H & P completed: Yes PA/LAT: Completed CT: Completed MRI: N/A LE US: na Cath: Yes - reviewed: Yes EKG: Completed Is patient on Amiodarone? Yes Echo:pemding, previously EF normal. PI's: Completed Carotid: Completed Mapping: Completed Dental: N/A PFT's: Completed CBC, Coags, BMP, Mg, Phos Recent Labs 11/29/19 0406 11/28/19 1902 11/28/19 1235 11/28/19 0344 11/27/19 0409 WBC 7.15 -- -- 6.83 7.53 HB 12.6* -- -- 12.3* 12.5* HCT 40.9 -- -- 39.5 39.6 PLT 202 -- -- 217 208 INR 1.2 -- -- 1.2 1.2 APTT 67.6* 47.0* 52.5* 76.1* 66.3* NA 140 -- -- 141 141 K 3.6* -- -- 3.7 3.6* CHLOR 103 -- -- 102 105 CO2 23 -- -- 25 24 BUN 20 -- -- 23 28* CREAT 1.50* -- -- 1.47* 1.54* GLUC 88 -- -- 103* 88 CA 9.6 -- -- 9.2 9.4 MG 2.0 -- -- 2.1 2.1 P 2.8 -- -- 3.6 4.0 UA: Normal HCG:N/A ABO/ABO Confirmed: Yes Blood ordered: Yes Willing to accept blood: Yes SA Swab: Yes - results: Negative Last Dose of Anticoagulation: Plavix LD 11/23, Heparin drip Op Note: N/A ICD Check: Yes Implants: no Consults: swallowing eval DM: Yes Cardiac Surgical prep: Yes SIGNATURE: Jayda Hernádnez RN THERAPIST.OCCUPATIONAL THERAPY DEPARTMENT CHAIR DATE of SERVICE: 11/28/2019 TIME of SERVICE: 10:59 AM CHECKED BY: Combined forms of age-related cataract of right eye 05/18/2017 11/26/2018 documented as of this encounter (statuses as of 02/24/2022) [facility] History of Past illness Narrative* Problem Noted Date Resolved Date Pain, postoperative, acute 12/04/201912/10 Overview: Well controlled pain, does not require CLERK OF SCALES On mechanically assisted ventilation 12/04/2019 12/09/2019 Acute blood loss anemia 12/04/2019 12/11/19 20 Preop testing 11/28/2019 12/11/2019 [facility] Surgeon: Dr. John Leavitt Informed Consent Completed: No STS Score: CABG CAD: Yes - CAD on Problem List: Yes Is intended procedure a CABG: Yes - is a beta melissa ordered? Yes H & P completed: Yes PA/LAT: Completed CT: Completed MRI: N/A LE US: na Cath: Yes - reviewed: Yes EKG: Completed Is patient on Amiodarone? Yes Echo:pemding, previously EF normal. PI's: Completed Carotid: Completed Mapping: Completed Dental: N/A PFT's: Completed CBC, Coags, BMP, Mg, Phos Recent Labs 11/29/19 0406 11/28/19 1902 11/28/19 1235 11/28/19 0344 11/27/19 0409 WBC 7.15 -- -- 6.83 7.53 HB 12.6* -- -- 12.3* 12.5* HCT 40.9 -- -- 39.5 39.6 PLT 202 -- -- 217 208 INR 1.2 -- -- 1.2 1.2 APTT 67.6* 47.0* 52.5* 76.1* 66.3* NA 140 -- -- 141 141 K 3.6* -- -- 3.7 3.6* CHLOR 103 -- -- 102 105 CO2 23 -- -- 25 24 BUN 20 -- -- 23 28* CREAT 1.50* -- -- 1.47* 1.54* GLUC 88 -- -- 103* 88 CA 9.6 -- -- 9.2 9.4 MG 2.0 -- -- 2.1 2.1 P 2.8 -- -- 3.6 4.0 UA: Normal HCG:N/A ABO/ABO Confirmed: Yes Blood ordered: Yes Willing to accept blood: Yes SA Swab: Yes - results: Negative Last Dose of Anticoagulation: Plavix LD 11/23, Heparin drip Op Note: N/A ICD Check: Yes Implants: no Consults: swallowing eval DM: Yes Cardiac Surgical prep: Yes SIGNATURE: Jayda Hernández RN THERAPIST.OCCUPATIONAL THERAPY DEPARTMENT CHAIR DATE of SERVICE: 11/28/2019 TIME of SERVICE: 10:59 AM CHECKED BY: Combined forms of age-related cataract of right eye 05/18/2017 11/26/2018 documented as of this encounter (statuses as of 05/03/2022) [facility] History of Past illness Narrative* Problem Noted Date Resolved Date Pain, postoperative, acute 12/04/201912/10 Overview: Well controlled pain, does not require CLERK OF SCALES On mechanically assisted ventilation 12/04/2019 12/09/2019 Acute blood loss anemia 12/04/2019 12/11/19 20 Preop testing 11/28/2019 12/11/2019 [facility] Surgeon: Dr. John Leavitt Informed Consent Completed: No STS Score: CABG CAD: Yes - CAD on Problem List: Yes Is intended procedure a CABG: Yes - is a beta melissa ordered? Yes H & P completed: Yes PA/LAT: Completed CT: Completed MRI: N/A LE US: na Cath: Yes - reviewed: Yes EKG: Completed Is patient on Amiodarone? Yes Echo:pemding, previously EF normal. PI's: Completed Carotid: Completed Mapping: Completed Dental: N/A PFT's: Completed CBC, Coags, BMP, Mg, Phos Recent Labs 11/29/19 0406 11/28/19 1902 11/28/19 1235 11/28/19 0344 11/27/19 0409 WBC 7.15 -- -- 6.83 7.53 HB 12.6* -- -- 12.3* 12.5* HCT 40.9 -- -- 39.5 39.6 PLT 202 -- -- 217 208 INR 1.2 -- -- 1.2 1.2 APTT 67.6* 47.0* 52.5* 76.1* 66.3* NA 140 -- -- 141 141 K 3.6* -- -- 3.7 3.6* CHLOR 103 -- -- 102 105 CO2 23 -- -- 25 24 BUN 20 -- -- 23 28* CREAT 1.50* -- -- 1.47* 1.54* GLUC 88 -- -- 103* 88 CA 9.6 -- -- 9.2 9.4 MG 2.0 -- -- 2.1 2.1 P 2.8 -- -- 3.6 4.0 UA: Normal HCG:N/A ABO/ABO Confirmed: Yes Blood ordered: Yes Willing to accept blood: Yes SA Swab: Yes - results: Negative Last Dose of Anticoagulation: Plavix LD 11/23, Heparin drip Op Note: N/A ICD Check: Yes Implants: no Consults: swallowing eval DM: Yes Cardiac Surgical prep: Yes SIGNATURE: Jayda Hernández RN THERAPIST.OCCUPATIONAL THERAPY DEPARTMENT CHAIR DATE of SERVICE: 11/28/2019 TIME of SERVICE: 10:59 AM CHECKED BY: Combined forms of age-related cataract of right eye 05/18/2017 11/26/2018 documented as of this encounter (statuses as of 05/20/2022) [facility] History of Past illness Narrative* Problem Noted Date Resolved Date Pain, postoperative, acute 12/04/201912/10 Overview: Well controlled pain, does not require CLERK OF SCALES On mechanically assisted ventilation 12/04/2019 12/09/2019 Acute blood loss anemia 12/04/2019 12/11/19 20 Preop testing 11/28/2019 12/11/2019 [facility] Surgeon: Dr. John Leavitt Informed Consent Completed: No STS Score: CABG CAD: Yes - CAD on Problem List: Yes Is intended procedure a CABG: Yes - is a beta melissa ordered? Yes H & P completed: Yes PA/LAT: Completed CT: Completed MRI: N/A LE US: na Cath: Yes - reviewed: Yes EKG: Completed Is patient on Amiodarone? Yes Echo:valerio, previously EF normal. PI's: Completed Carotid: Completed Mapping: Completed Dental: N/A PFT's: Completed CBC, Coags, BMP, Mg, Phos Recent Labs 11/29/19 0406 11/28/19 1902 11/28/19 1235 11/28/19 0344 11/27/19 0409 WBC 7.15 -- -- 6.83 7.53 HB 12.6* -- -- 12.3* 12.5* HCT 40.9 -- -- 39.5 39.6 PLT 202 -- -- 217 208 INR 1.2 -- -- 1.2 1.2 APTT 67.6* 47.0* 52.5* 76.1* 66.3* NA 140 -- -- 141 141 K 3.6* -- -- 3.7 3.6* CHLOR 103 -- -- 102 105 CO2 23 -- -- 25 24 BUN 20 -- -- 23 28* CREAT 1.50* -- -- 1.47* 1.54* GLUC 88 -- -- 103* 88 CA 9.6 -- -- 9.2 9.4 MG 2.0 -- -- 2.1 2.1 P 2.8 -- -- 3.6 4.0 UA: Normal HCG:N/A ABO/ABO Confirmed: Yes Blood ordered: Yes Willing to accept blood: Yes SA Swab: Yes - results: Negative Last Dose of Anticoagulation: Plavix LD 11/23, Heparin drip Op Note: N/A ICD Check: Yes Implants: no Consults: swallowing eval DM: Yes Cardiac Surgical prep: Yes SIGNATURE: Jayda Hernández RN THERAPIST.OCCUPATIONAL THERAPY DEPARTMENT CHAIR DATE of SERVICE: 11/28/2019 TIME of SERVICE: 10:59 AM CHECKED BY: Combined forms of age-related cataract of right eye 05/18/2017 11/26/2018 documented as of this encounter (statuses as of 05/25/2022) [facility] History of Past illness Narrative* Problem Noted Date Resolved Date Pain, postoperative, acute 12/04/201912/10 Overview: Well controlled pain, does not require CLERK OF SCALES On mechanically assisted ventilation 12/04/2019 12/09/2019 Acute blood loss anemia 12/04/2019 12/11/19 20 Preop testing 11/28/2019 12/11/2019 [facility] Surgeon: Dr. John Leavitt Informed Consent Completed: No STS Score: CABG CAD: Yes - CAD on Problem List: Yes Is intended procedure a CABG: Yes - is a beta melissa ordered? Yes H & P completed: Yes PA/LAT: Completed CT: Completed MRI: N/A LE US: na Cath: Yes - reviewed: Yes EKG: Completed Is patient on Amiodarone? Yes Echo:pemding, previously EF normal. PI's: Completed Carotid: Completed Mapping: Completed Dental: N/A PFT's: Completed CBC, Coags, BMP, Mg, Phos Recent Labs 11/29/19 0406 11/28/19 1902 11/28/19 1235 11/28/19 0344 11/27/19 0409 WBC 7.15 -- -- 6.83 7.53 HB 12.6* -- -- 12.3* 12.5* HCT 40.9 -- -- 39.5 39.6 PLT 202 -- -- 217 208 INR 1.2 -- -- 1.2 1.2 APTT 67.6* 47.0* 52.5* 76.1* 66.3* NA 140 -- -- 141 141 K 3.6* -- -- 3.7 3.6* CHLOR 103 -- -- 102 105 CO2 23 -- -- 25 24 BUN 20 -- -- 23 28* CREAT 1.50* -- -- 1.47* 1.54* GLUC 88 -- -- 103* 88 CA 9.6 -- -- 9.2 9.4 MG 2.0 -- -- 2.1 2.1 P 2.8 -- -- 3.6 4.0 UA: Normal HCG:N/A ABO/ABO Confirmed: Yes Blood ordered: Yes Willing to accept blood: Yes SA Swab: Yes - results: Negative Last Dose of Anticoagulation: Plavix LD 11/23, Heparin drip Op Note: N/A ICD Check: Yes Implants: no Consults: swallowing eval DM: Yes Cardiac Surgical prep: Yes SIGNATURE: Jayda Hernández RN THERAPIST.OCCUPATIONAL THERAPY DEPARTMENT CHAIR DATE of SERVICE: 11/28/2019 TIME of SERVICE: 10:59 AM CHECKED BY: Combined forms of age-related cataract of right eye 05/18/2017 11/26/2018 documented as of this encounter (statuses as of 05/27/2022) [facility] History of Past illness Narrative* Problem Noted Date Resolved Date Pain, postoperative, acute 12/04/201912/10 Overview: Well controlled pain, does not require CLERK OF SCALES On mechanically assisted ventilation 12/04/2019 12/09/2019 Acute blood loss anemia 12/04/2019 12/11/19 20 Preop testing 11/28/2019 12/11/2019 [facility] Surgeon: Dr. John Leavitt Informed Consent Completed: No STS Score: CABG CAD: Yes - CAD on Problem List: Yes Is intended procedure a CABG: Yes - is a beta melissa ordered? Yes H & P completed: Yes PA/LAT: Completed CT: Completed MRI: N/A LE US: na Cath: Yes - reviewed: Yes EKG: Completed Is patient on Amiodarone? Yes Echo:pemding, previously EF normal. PI's: Completed Carotid: Completed Mapping: Completed Dental: N/A PFT's: Completed CBC, Coags, BMP, Mg, Phos Recent Labs 11/29/19 0406 11/28/19 1902 11/28/19 1235 11/28/19 0344 11/27/19 0409 WBC 7.15 -- -- 6.83 7.53 HB 12.6* -- -- 12.3* 12.5* HCT 40.9 -- -- 39.5 39.6 PLT 202 -- -- 217 208 INR 1.2 -- -- 1.2 1.2 APTT 67.6* 47.0* 52.5* 76.1* 66.3* NA 140 -- -- 141 141 K 3.6* -- -- 3.7 3.6* CHLOR 103 -- -- 102 105 CO2 23 -- -- 25 24 BUN 20 -- -- 23 28* CREAT 1.50* -- -- 1.47* 1.54* GLUC 88 -- -- 103* 88 CA 9.6 -- -- 9.2 9.4 MG 2.0 -- -- 2.1 2.1 P 2.8 -- -- 3.6 4.0 UA: Normal HCG:N/A ABO/ABO Confirmed: Yes Blood ordered: Yes Willing to accept blood: Yes SA Swab: Yes - results: Negative Last Dose of Anticoagulation: Plavix LD 11/23, Heparin drip Op Note: N/A ICD Check: Yes Implants: no Consults: swallowing eval DM: Yes Cardiac Surgical prep: Yes SIGNATURE: Jayda Hernández RN THERAPIST.OCCUPATIONAL THERAPY DEPARTMENT CHAIR DATE of SERVICE: 11/28/2019 TIME of SERVICE: 10:59 AM CHECKED BY: Combined forms of age-related cataract of right eye 05/18/2017 11/26/2018 documented as of this encounter (statuses as of 06/06/2022) [facility] History of Past illness Narrative* Problem Noted Date Resolved Date Pain, postoperative, acute 12/04/201912/10 Overview: Well controlled pain, does not require CLERK OF SCALES On mechanically assisted ventilation 12/04/2019 12/09/2019 Acute blood loss anemia 12/04/2019 12/11/19 Preop testing 11/28/2019 12/11/2019 [facility] Surgeon: Dr. John Leavitt Informed Consent Completed: No STS Score: CABG CAD: Yes - CAD on Problem List: Yes Is intended procedure a CABG: Yes - is a beta melissa ordered? Yes H & P completed: Yes PA/LAT: Completed CT: Completed MRI: N/A LE US: na Cath: Yes - reviewed: Yes EKG: Completed Is patient on Amiodarone? Yes Echo:pemding, previously EF normal. PI's: Completed Carotid: Completed Mapping: Completed Dental: N/A PFT's: Completed CBC, Coags, BMP, Mg, Phos Recent Labs 11/29/19 0406 11/28/19 1902 11/28/19 1235 11/28/19 0344 11/27/19 0409 WBC 7.15 -- -- 6.83 7.53 HB 12.6* -- -- 12.3* 12.5* HCT 40.9 -- -- 39.5 39.6 PLT 202 -- -- 217 208 INR 1.2 -- -- 1.2 1.2 APTT 67.6* 47.0* 52.5* 76.1* 66.3* NA 140 -- -- 141 141 K 3.6* -- -- 3.7 3.6* CHLOR 103 -- -- 102 105 CO2 23 -- -- 25 24 BUN 20 -- -- 23 28* CREAT 1.50* -- -- 1.47* 1.54* GLUC 88 -- -- 103* 88 CA 9.6 -- -- 9.2 9.4 MG 2.0 -- -- 2.1 2.1 P 2.8 -- -- 3.6 4.0 UA: Normal HCG:N/A ABO/ABO Confirmed: Yes Blood ordered: Yes Willing to accept blood: Yes SA Swab: Yes - results: Negative Last Dose of Anticoagulation: Plavix LD 11/23, Heparin drip Op Note: N/A ICD Check: Yes Implants: no Consults: swallowing eval DM: Yes Cardiac Surgical prep: Yes SIGNATURE: Jayda Hernández, RN THERAPIST.OCCUPATIONAL THERAPY DEPARTMENT CHAIR DATE of SERVICE: 11/28/2019 TIME of SERVICE: 10:59 AM CHECKED BY: Combined forms of age-related cataract of right eye 05/18/2017 11/26/2018 documented as of this encounter (statuses as of 06/09/2022) [facility] History of Past illness Narrative* Problem Noted Date Resolved Date Pain, postoperative, acute 12/04/201912/10 Overview: Well controlled pain, does not require CLERK OF SCALES On mechanically assisted ventilation 12/04/2019 12/09/2019 Acute blood loss anemia 12/04/2019 12/11/19 Preop testing 11/28/2019 12/11/2019 [facility] Surgeon: Dr. John Leavitt Informed Consent Completed: No STS Score: CABG CAD: Yes - CAD on Problem List: Yes Is intended procedure a CABG: Yes - is a beta melissa ordered? Yes H & P completed: Yes PA/LAT: Completed CT: Completed MRI: N/A LE US: na Cath: Yes - reviewed: Yes EKG: Completed Is patient on Amiodarone? Yes Echo:pemding, previously EF normal. PI's: Completed Carotid: Completed Mapping: Completed Dental: N/A PFT's: Completed CBC, Coags, BMP, Mg, Phos Recent Labs 11/29/19 0406 11/28/19 1902 11/28/19 1235 11/28/19 0344 11/27/19 0409 WBC 7.15 -- -- 6.83 7.53 HB 12.6* -- -- 12.3* 12.5* HCT 40.9 -- -- 39.5 39.6 PLT 202 -- -- 217 208 INR 1.2 -- -- 1.2 1.2 APTT 67.6* 47.0* 52.5* 76.1* 66.3* NA 140 -- -- 141 141 K 3.6* -- -- 3.7 3.6* CHLOR 103 -- -- 102 105 CO2 23 -- -- 25 24 BUN 20 -- -- 23 28* CREAT 1.50* -- -- 1.47* 1.54* GLUC 88 -- -- 103* 88 CA 9.6 -- -- 9.2 9.4 MG 2.0 -- -- 2.1 2.1 P 2.8 -- -- 3.6 4.0 UA: Normal HCG:N/A ABO/ABO Confirmed: Yes Blood ordered: Yes Willing to accept blood: Yes SA Swab: Yes - results: Negative Last Dose of Anticoagulation: Plavix LD 11/23, Heparin drip Op Note: N/A ICD Check: Yes Implants: no Consults: swallowing eval DM: Yes Cardiac Surgical prep: Yes SIGNATURE: Jayda Hernández RN THERAPIST.OCCUPATIONAL THERAPY DEPARTMENT CHAIR DATE of SERVICE: 11/28/2019 TIME of SERVICE: 10:59 AM CHECKED BY: Combined forms of age-related cataract of right eye 05/18/2017 11/26/2018 documented as of this encounter (statuses as of 08/10/2022) [facility] History of Past illness Narrative* Problem Noted Date Diagnosed Date Resolved Date Pain, postoperative, acute 12/04/2019 1 Overview: Well controlled pain, does not require 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 John Leavitt Informed Consent Completed: No STS Score: CABG CAD: Yes - CAD on Problem List: Yes Is intended procedure a CABG: Yes - is a beta melissa ordered? Yes H & P completed: Yes PA/LAT: Completed CT: Completed MRI: N/A LE US: na Cath: Yes - reviewed: Yes EKG: Completed Is patient on Amiodarone? Yes Echo:pemding, previously EF normal. PI's: Completed Carotid: Completed Mapping: Completed Dental: N/A PFT's: Completed CBC, Coags, BMP, Mg, Phos Recent Labs 11/29/19 0406 11/28/19 1902 11/28/19 1235 11/28/19 0344 11/27/19 0409 WBC 7.15 -- -- 6.83 7.53 HB 12.6* -- -- 12.3* 12.5* HCT 40.9 -- -- 39.5 39.6 PLT 202 -- -- 217 208 INR 1.2 -- -- 1.2 1.2 APTT 67.6* 47.0* 52.5* 76.1* 66.3* NA 140 -- -- 141 141 K 3.6* -- -- 3.7 3.6* CHLOR 103 -- -- 102 105 CO2 23 -- -- 25 24 BUN 20 -- -- 23 28* CREAT 1.50* -- -- 1.47* 1.54* GLUC 88 -- -- 103* 88 CA 9.6 -- -- 9.2 9.4 MG 2.0 -- -- 2.1 2.1 P 2.8 -- -- 3.6 4.0 UA: Normal HCG:N/A ABO/ABO Confirmed: Yes Blood ordered: Yes Willing to accept blood: Yes SA Swab: Yes - results: Negative Last Dose of Anticoagulation: Plavix LD 11/23, Heparin drip Op Note: N/A ICD Check: Yes Implants: no Consults: swallowing eval DM: Yes Cardiac Surgical prep: Yes SIGNATURE: Jayda Hernández RN THERAPIST.OCCUPATIONAL THERAPY DEPARTMENT CHAIR DATE of SERVICE: 11/28/2019 TIME of SERVICE: 10:59 AM CHECKED BY: Combined forms of age-relate d cataract of right eye 05/18/2017 11/26/2018 documented as of this encounter (statuses as of 08/21/2022) [facility] History of Past illness Narrative* Problem Noted Date Diagnosed Date Resolved Date Pain, postoperative, acute 12/04/2019 1 Overview: Well controlled pain, does not require 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 John Leavitt Informed Consent Completed: No STS Score: CABG CAD: Yes - CAD on Problem List: Yes Is intended procedure a CABG: Yes - is a beta melissa ordered? Yes H & P completed: Yes PA/LAT: Completed CT: Completed MRI: N/A LE US: na Cath: Yes - reviewed: Yes EKG: Completed Is patient on Amiodarone? Yes Echo:valerio, previously EF normal. PI's: Completed Carotid: Completed Mapping: Completed Dental: N/A PFT's: Completed CBC, Coags, BMP, Mg, Phos Recent Labs 11/29/19 0406 11/28/19 1902 11/28/19 1235 11/28/19 0344 11/27/19 0409 WBC 7.15 -- -- 6.83 7.53 HB 12.6* -- -- 12.3* 12.5* HCT 40.9 -- -- 39.5 39.6 PLT 202 -- -- 217 208 INR 1.2 -- -- 1.2 1.2 APTT 67.6* 47.0* 52.5* 76.1* 66.3* NA 140 -- -- 141 141 K 3.6* -- -- 3.7 3.6* CHLOR 103 -- -- 102 105 CO2 23 -- -- 25 24 BUN 20 -- -- 23 28* CREAT 1.50* -- -- 1.47* 1.54* GLUC 88 -- -- 103* 88 CA 9.6 -- -- 9.2 9.4 MG 2.0 -- -- 2.1 2.1 P 2.8 -- -- 3.6 4.0 UA: Normal HCG:N/A ABO/ABO Confirmed: Yes Blood ordered: Yes Willing to accept blood: Yes SA Swab: Yes - results: Negative Last Dose of Anticoagulation: Plavix LD 11/23, Heparin drip Op Note: N/A ICD Check: Yes Implants: no Consults: swallowing eval DM: Yes Cardiac Surgical prep: Yes SIGNATURE: Jayda Hernández RN THERAPIST.OCCUPATIONAL THERAPY DEPARTMENT CHAIR DATE of SERVICE: 11/28/2019 TIME of SERVICE: 10:59 AM CHECKED BY: Combined forms of age-relate d cataract of right eye 05/18/2017 11/26/2018 documented as of this encounter (statuses as of 09/12/2022) [facility] History of Past illness Narrative* Problem Noted Date Diagnosed Date Resolved Date Pain, postoperative, acute 12/04/2019 1 Overview: Well controlled pain, does not require 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 John Leavitt Informed Consent Completed: No STS Score: CABG CAD: Yes - CAD on Problem List: Yes Is intended procedure a CABG: Yes - is a beta melissa ordered? Yes H & P completed: Yes PA/LAT: Completed CT: Completed MRI: N/A LE US: na Cath: Yes - reviewed: Yes EKG: Completed Is patient on Amiodarone? Yes Echo:pemding, previously EF normal. PI's: Completed Carotid: Completed Mapping: Completed Dental: N/A PFT's: Completed CBC, Coags, BMP, Mg, Phos Recent Labs 11/29/19 0406 11/28/19 1902 11/28/19 1235 11/28/19 0344 11/27/19 0409 WBC 7.15 -- -- 6.83 7.53 HB 12.6* -- -- 12.3* 12.5* HCT 40.9 -- -- 39.5 39.6 PLT 202 -- -- 217 208 INR 1.2 -- -- 1.2 1.2 APTT 67.6* 47.0* 52.5* 76.1* 66.3* NA 140 -- -- 141 141 K 3.6* -- -- 3.7 3.6* CHLOR 103 -- -- 102 105 CO2 23 -- -- 25 24 BUN 20 -- -- 23 28* CREAT 1.50* -- -- 1.47* 1.54* GLUC 88 -- -- 103* 88 CA 9.6 -- -- 9.2 9.4 MG 2.0 -- -- 2.1 2.1 P 2.8 -- -- 3.6 4.0 UA: Normal HCG:N/A ABO/ABO Confirmed: Yes Blood ordered: Yes Willing to accept blood: Yes SA Swab: Yes - results: Negative Last Dose of Anticoagulation: Plavix LD 11/23, Heparin drip Op Note: N/A ICD Check: Yes Implants: no Consults: swallowing eval DM: Yes Cardiac Surgical prep: Yes SIGNATURE: Jayda Hernández RN THERAPIST.OCCUPATIONAL THERAPY DEPARTMENT CHAIR DATE of SERVICE: 11/28/2019 TIME of SERVICE: 10:59 AM CHECKED BY: Combined forms of age-relate d cataract of right eye 05/18/2017 11/26/2018 documented as of this encounter (statuses as of 11/18/2022) [facility] History of Past illness Narrative* Problem Noted Date Diagnosed Date Resolved Date Pain, postoperative, acute 12/04/2019 1 Overview: Well controlled pain, does not require 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 John Leavitt Informed Consent Completed: No STS Score: CABG CAD: Yes - CAD on Problem List: Yes Is intended procedure a CABG: Yes - is a beta melissa ordered? Yes H & P completed: Yes PA/LAT: Completed CT: Completed MRI: N/A LE US: na Cath: Yes - reviewed: Yes EKG: Completed Is patient on Amiodarone? Yes Echo:pemding, previously EF normal. PI's: Completed Carotid: Completed Mapping: Completed Dental: N/A PFT's: Completed CBC, Coags, BMP, Mg, Phos Recent Labs 11/29/19 0406 11/28/19 1902 11/28/19 1235 11/28/19 0344 11/27/19 0409 WBC 7.15 -- -- 6.83 7.53 HB 12.6* -- -- 12.3* 12.5* HCT 40.9 -- -- 39.5 39.6 PLT 202 -- -- 217 208 INR 1.2 -- -- 1.2 1.2 APTT 67.6* 47.0* 52.5* 76.1* 66.3* NA 140 -- -- 141 141 K 3.6* -- -- 3.7 3.6* CHLOR 103 -- -- 102 105 CO2 23 -- -- 25 24 BUN 20 -- -- 23 28* CREAT 1.50* -- -- 1.47* 1.54* GLUC 88 -- -- 103* 88 CA 9.6 -- -- 9.2 9.4 MG 2.0 -- -- 2.1 2.1 P 2.8 -- -- 3.6 4.0 UA: Normal HCG:N/A ABO/ABO Confirmed: Yes Blood ordered: Yes Willing to accept blood: Yes SA Swab: Yes - results: Negative Last Dose of Anticoagulation: Plavix LD 11/23, Heparin drip Op Note: N/A ICD Check: Yes Implants: no Consults: swallowing eval DM: Yes Cardiac Surgical prep: Yes SIGNATURE: Jayda Hernández RN THERAPIST.OCCUPATIONAL THERAPY DEPARTMENT CHAIR DATE of SERVICE: 11/28/2019 TIME of SERVICE: 10:59 AM CHECKED BY: Combined forms of age-relate d cataract of right eye 05/18/2017 11/26/2018 documented as of this encounter (statuses as of 03/24/2023) [facility] History of Past illness Narrative* Problem Noted Date Diagnosed Date Resolved Date Pain, postoperative, acute 12/04/2019 1 Overview: Well controlled pain, does not require 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 John Leavitt Informed Consent Completed: No STS Score: CABG CAD: Yes - CAD on Problem List: Yes Is intended procedure a CABG: Yes - is a beta melissa ordered? Yes H & P completed: Yes PA/LAT: Completed CT: Completed MRI: N/A LE US: na Cath: Yes - reviewed: Yes EKG: Completed Is patient on Amiodarone? Yes Echo:pemding, previously EF normal. PI's: Completed Carotid: Completed Mapping: Completed Dental: N/A PFT's: Completed CBC, Coags, BMP, Mg, Phos Recent Labs 11/29/19 0406 11/28/19 1902 11/28/19 1235 11/28/19 0344 11/27/19 0409 WBC 7.15 -- -- 6.83 7.53 HB 12.6* -- -- 12.3* 12.5* HCT 40.9 -- -- 39.5 39.6 PLT 202 -- -- 217 208 INR 1.2 -- -- 1.2 1.2 APTT 67.6* 47.0* 52.5* 76.1* 66.3* NA 140 -- -- 141 141 K 3.6* -- -- 3.7 3.6* CHLOR 103 -- -- 102 105 CO2 23 -- -- 25 24 BUN 20 -- -- 23 28* CREAT 1.50* -- -- 1.47* 1.54* GLUC 88 -- -- 103* 88 CA 9.6 -- -- 9.2 9.4 MG 2.0 -- -- 2.1 2.1 P 2.8 -- -- 3.6 4.0 UA: Normal HCG:N/A ABO/ABO Confirmed: Yes Blood ordered: Yes Willing to accept blood: Yes SA Swab: Yes - results: Negative Last Dose of Anticoagulation: Plavix LD 11/23, Heparin drip Op Note: N/A ICD Check: Yes Implants: no Consults: swallowing eval DM: Yes Cardiac Surgical prep: Yes SIGNATURE: Jayda Hernández RN THERAPIST.OCCUPATIONAL THERAPY DEPARTMENT CHAIR DATE of SERVICE: 11/28/2019 TIME of SERVICE: 10:59 AM CHECKED BY: Combined forms of age-relate d cataract of right eye 05/18/2017 11/26/2018 documented as of this encounter (statuses as of 03/24/2023) [facility] History of Past illness Narrative* Problem Noted Date Diagnosed Date Resolved Date Pain, postoperative, acute 12/04/2019 1 Overview: Well controlled pain, does not require 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 John Leavitt Informed Consent Completed: No STS Score: CABG CAD: Yes - CAD on Problem List: Yes Is intended procedure a CABG: Yes - is a beta melissa ordered? Yes H & P completed: Yes PA/LAT: Completed CT: Completed MRI: N/A LE US: na Cath: Yes - reviewed: Yes EKG: Completed Is patient on Amiodarone? Yes Echo:pemding, previously EF normal. PI's: Completed Carotid: Completed Mapping: Completed Dental: N/A PFT's: Completed CBC, Coags, BMP, Mg, Phos Recent Labs 11/29/19 0406 11/28/19 1902 11/28/19 1235 11/28/19 0344 11/27/19 0409 WBC 7.15 -- -- 6.83 7.53 HB 12.6* -- -- 12.3* 12.5* HCT 40.9 -- -- 39.5 39.6 PLT 202 -- -- 217 208 INR 1.2 -- -- 1.2 1.2 APTT 67.6* 47.0* 52.5* 76.1* 66.3* NA 140 -- -- 141 141 K 3.6* -- -- 3.7 3.6* CHLOR 103 -- -- 102 105 CO2 23 -- -- 25 24 BUN 20 -- -- 23 28* CREAT 1.50* -- -- 1.47* 1.54* GLUC 88 -- -- 103* 88 CA 9.6 -- -- 9.2 9.4 MG 2.0 -- -- 2.1 2.1 P 2.8 -- -- 3.6 4.0 UA: Normal HCG:N/A ABO/ABO Confirmed: Yes Blood ordered: Yes Willing to accept blood: Yes SA Swab: Yes - results: Negative Last Dose of Anticoagulation: Plavix LD 11/23, Heparin drip Op Note: N/A ICD Check: Yes Implants: no Consults: swallowing eval DM: Yes Cardiac Surgical prep: Yes SIGNATURE: Jayda Hernández RN THERAPIST.OCCUPATIONAL THERAPY DEPARTMENT CHAIR DATE of SERVICE: 11/28/2019 TIME of SERVICE: 10:59 AM CHECKED BY: Combined forms of age-relate d cataract of right eye 05/18/2017 11/26/2018 documented as of this encounter (statuses as of 03/24/2023) [facility] Diagnosis Coronary artery disease involving [place] coronary artery of [place] heart without angina pectoris PAF (paroxysmal atrial fibrillation) ([facility]) Atrial fibrillation Pulmonary hypertension, primary (HCC) Primary pulmonary hypertension Coronary artery disease involving [place] coronary artery of [place] heart without angina pectoris- Primary Chronic diastolic congestive heart failure (HCC) Chronic diastolic heart failure Paroxysmal atrial fibrillation (HCC) Atrial fibrillation Essential hypertension Unspecified essential hypertension Hyperlipidemia LDL goal <70 Other and unspecified hyperlipidemia ICD (implantable cardioverter-defibrillator) in place Automatic implantable cardiac defibrillator in situ [facility] Diagnosis Coronary artery disease involving [place] coronary artery of [place] heart without angina pectoris- Primary Chronic diastolic congestive heart failure (HCC) Chronic diastolic heart failure Paroxysmal atrial fibrillation (HCC) Atrial fibrillation Essential hypertension Unspecified essential hypertension Hyperlipidemia LDL goal <70 Other and unspecified hyperlipidemia 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) Morbid obesity [facility] Diagnosis Primary open angle glaucoma (POAG) of both eyes, moderate stage- Primary Type 2 diabetes mellitus without retinopathy ([facility]) Type II or unspecified type diabetes mellitus without mention of complication, not stated as uncontrolled Pseudophakia of both eyes Lens replaced by other means Early dry stage nonexudative age-related macular degeneration of both eyes Mechanical ptosis of eyelid of both eyes Mechanical ptosis Regular astigmatism of both eyes Regular astigmatism Presbyopia [facility] Diagnosis Chronic diastolic CHF (congestive heart failure) ([facility])- Primary Chronic diastolic heart failure [facility] Diagnosis Coronary artery disease involving [place] coronary artery of [place] heart without angina pectoris- Primary Chronic diastolic congestive heart failure (HCC) Chronic diastolic heart failure Paroxysmal atrial fibrillation (HCC) Atrial fibrillation Essential hypertension Unspecified essential hypertension Hyperlipidemia LDL goal <70 Other and unspecified hyperlipidemia ICD (implantable cardioverter-defibrillator) in place Automatic implantable cardiac defibrillator in situ [facility] Diagnosis Primary open angle glaucoma (POAG) of both eyes, moderate stage- Primary [facility] Diagnosis Coronary artery disease involving [place] coronary artery of [place] heart without angina pectoris PAF (paroxysmal atrial fibrillation) (HCC) Atrial fibrillation Pulmonary hypertension, primary (HCC) Primary pulmonary hypertension Hyperlipidemia LDL goal <70 Other and unspecified hyperlipidemia [facility] Diagnosis Coronary artery disease involving [place] coronary artery of [place] heart without angina pectoris- Primary Chronic diastolic congestive heart failure (HCC) Chronic diastolic heart failure [facility] Diagnosis Coronary artery disease involving [place] coronary artery of [place] heart without angina pectoris- Primary Chronic diastolic congestive heart failure (HCC) Chronic diastolic heart failure Paroxysmal atrial fibrillation (HCC) Atrial fibrillation Essential hypertension Unspecified essential hypertension Hyperlipidemia LDL goal <70 Other and unspecified hyperlipidemia ICD (implantable cardioverter-defibrillator) in place Automatic implantable cardiac defibrillator in situ [facility] Diagnosis Primary open angle glaucoma (POAG) of both eyes, moderate stage- Primary Type 2 diabetes mellitus without retinopathy ([facility]) Type II or unspecified type diabetes mellitus without mention of complication, not stated as uncontrolled Early dry stage nonexudative age-related macular degeneration of both eyes Dry eye syndrome of both eyes Pseudophakia of both eyes Lens replaced by other means Regular astigmatism of both eyes Regular astigmatism Presbyopia [facility] Diagnosis Coronary artery disease involving [place] coronary artery of [place] heart without angina pectoris- Primary Chronic diastolic congestive heart failure (HCC) Chronic diastolic heart failure Paroxysmal atrial fibrillation (HCC) Atrial fibrillation Essential hypertension Unspecified essential hypertension Hyperlipidemia LDL goal <70 Other and unspecified hyperlipidemia ICD (implantable cardioverter-defibrillator) in place Automatic implantable cardiac defibrillator in situ [facility] Diagnosis Paroxysmal atrial fibrillation (HCC)- Primary Atrial fibrillation documented in this encounter [facility] for referral (narrative)* Outpatient Procedure (Routine) - Pending Review Specialty Diagnoses / Procedures Referred By Contac t Referred To Contact [facility] Diagnoses Chronic diastolic CHF (congestive heart failure) (HCC) Procedures ECHO ECHO TTHRC R-T 2D W/WOM-MODE COMPL SPEC&COLR D Minoo Reyes, THERAPIST.OCCUPATIONAL THERAPY DEPARTMENT CHAIR [address] [place] [address] [facility] [place] [address] [place] [address] Referral ID Status Reason Start Date Expiration Date Visits Requested Visits Authorized [id number] Pending Review Auto-Generat ed Referral 10/04/2021 10/04/2022 1 1 [facility] Outpatient Procedure (Routine) - Authorized Specialty Diagnoses / Procedures Referred By Contac t Referred To Contact [facility] Diagnoses Paroxysmal atrial fibrillation (HCC) Procedures ECG COMPLETE ECG ROUTINE ECG W/LEAST 12 LDS W/I&R Juliet Johnson MD [address] [place] [id number] [facility] [address] [address] Referral ID Status Reason Start Date Expiration Date Visits Requested Visits Authorized [id number] Authorized Auto-Generat ed Referral 05/31/2022 05/31/2023 1 1 [facility] Reason for Referral Status Reason Specialty Diagnoses / Procedures Referred By Contact Referred To Contact Auth Not Needed Diagnoses Parkinson's disease Dysphagia, unspecified type Tremor Bradykinesia Procedures CT HEAD WITHOUT CONTRAST CO CT SCAN,HEAD/BRAIN,W/O CONTRAST Pedro Hamilton DO [address] [place] [address] Status Reason Specialty Diagnoses / Procedures Referred By Contact Referred To Contact New Request Speech Therapy Diagnoses Parkinson's disease Dysphagia, unspecified type Tremor Bradykinesia Pedro Bryant DO [address] [place] [address] Scheduling Instructions . Status Reason Specialty Diagnoses / Procedures Re ferred By Contact Referred To Contact New Request Neurology Diagnoses Parkinsonism, unspecified Parkinsonism type Pedro Bryant DO [address] [place] [address] Pedro Bryant DO [address] [place] [address] History of Present Illness * Pedro Bryant DO - 06/22/2018 1:00 PM EDT [facility] NOTE Chief complaint: Parkinsons Disease History of present illness: Americo Leavitt is a 72 y.o. right handed male who presents with Parkinsons disease. He developed a hand tremor on the right side. He also was shuffling his feet when he was walking. He has been treated with Dr. Decker in [place]. He has had symptoms since 2013. He has minimal to mild tremor in the left hand. He has had gait changes since then. His symptoms have slowly progressed since that time. He takes Carbidopa/Levodopa 25/100 mg one pill three times a day. He is on Ropinirole 1 mg tid as well. He was on ropinirole monotherapy initally. He now has added carbidopa levodopa and ropinirole. He is walking better and his tremor is better since the addition of carbidopa/levodopa. He has some masked facies. He had a swallow study done. They stated that he didn't aspirate but he is at risk. He does have slowing of his movements. They have not noticed any memory loss. He is not hallucinating. He is not having any delusions. He is falling at times. In 2017 he had a fall and could not stand up. He has a pacemaker. He takes carbidopa/levodopa at 730 am, 12 noon, and 8pm. They do not notice any fluctuation in symptoms. Review of Systems: Comments Neurological As above General/constitutional No fevers, weight change, chills, fatigue, night sweats Skin No rash, edema, bruising HEENT No diplopia, dysphagia, dizziness, tinnitus, hearing loss Cardiovascular No dyspnea or chest pain, palpitaitons, peripheral edema Respiratory No SOB, wheezing, rhonchi, cough or rales Gastrointestinal No loss of bowel control, constipation, diarrhea, abdominal pain, nausea or vomiting Genitourinary No loss of bladder control, no sexual dysfunction, hematuria, dysuria Musculoskeletal No myalgias, weakness, atrophy, joint pain, neck pain or back pain Psychiatric No depression, anxeity, hallucinations, delusions Endocrine No changes to hair or nails, abnormal sweating, hot flashess, excessive thirst, polyuria Hematologic No easy bruising, bleeding, swollen lymph nodes Unless directly addressed in ROS or in assessment and plan, patient was instructed to followup positive ROS findings with PCP. Past Medical History: Diagnosis Date Arthritis Asthma Diabetes mellitus Essential hypertension, benign GERD (gastroesophageal reflux disease) Gout Hyperlipidemia Parkinson's disease Past Surgical History: Procedure Laterality Date HERNIA REPAIR OTHER SURGICAL stent placed OTHER SURGICAL Heart ablation PACEMAKER PLACEMENT Family History Problem Relation Age of Onset Parkinson Mother Diabetes Mother Myocardial Infarction Father Colorectal Cancer Father Diabetes Father Social History Socioeconomic History Marital status: Spouse name: Not on file Number of children: Not on file Years of education: Not on file Highest education level: Not on file Occupational History Not on file Social Needs Financial resource strain: Not on file Food insecurity: Worry: Not on file Inability: Not on file Transportation needs: Medical: Not on file Non-medical: Not on file Tobacco Use Smoking status: Former Smoker Smokeless tobacco: Never Used Tobacco comment: Quit about 30 yrs ago Substance and Sexual Activity Alcohol use: Never Frequency: Never Drug use: Not on file Sexual activity: Not on file Lifestyle Physical activity: Days per week: Not on file Minutes per session: Not on file Stress: Not on file Relationships Social connections: Talks on phone: Not on file Gets together: Not on file Attends voodoo service: Not on file Active member of club or organization: Not on file Attends meetings of clubs or organizations: Not on file Relationship status: Not on file Intimate partner violence: Fear of current or ex partner: Not on file Emotionally abused: Not on file Physically abused: Not on file Forced sexual activity: Not on file Other Topics Concern Not on file Social History Narrative Not on file No Known Allergies Current Outpatient Medications Medication Sig Dispense Refill acetaminophen (TYLENOL) 500 MG Tab tablet Take 500 mg by mouth 3 times daily. albuterol (VENTOLIN HFA) 108 (90 Base) MCG/ACT Aero Soln inhaler allopurinol 100 MG Tab tablet Take 100 mg by mouth 2 times daily. amLODIPine 5 MG Tab tablet Take 5 mg by mouth daily. aspirin EC [address] Take 81 mg by mouth Daily (with dinner). brimonidine 0.2 % Solution 1 drop. carbidopa-levodopa 25-100 MG Tab per tablet 3 times daily. docusate (COLACE) 100 MG Cap capsule Take 100 mg by mouth 2 times daily. esomeprazole (NEXIUM) [address] capsule Take 40 mg by mouth daily. fluticasone (FLOVENT HFA) 110 MCG/ACT Aerosol inhaler furOSEmide 40 MG Tab tablet Take 40 mg by mouth Daily (with dinner). GARLIC PO Take 1 capsule by mouth Daily (with dinner). latanoprost 0.005 % Solution ophthalmic solution 1 drop. metformin 500 MG Tab tablet Take 500 mg by mouth. metoprolol succinate (TOPROL XL) 100 MG tablet XL Take by mouth daily. Multiple Vitamins-Minerals (MULTIVITAMIN ADULT PO) Take by mouth. OMEGA-3 FATTY ACIDS PO Take 1 capsule by mouth. rOPINIRole (REQUIP) 1 MG Tab Take 1 mg by mouth 3 times daily. No current facility-administered medications for this visit. Physical Exam: Blood pressure 132/76, pulse 60, resp. rate 20, height 1.549 m (5' 1 ), weight 110.5 kg (243 lb 11.2 oz). Body mass index is 46.05 kg/m . General: In no acute distress. HENT: Normal oropharynx and mucosa. Normal external appearance of ears and nose. Neck: Supple, no pain or tenderness CV: RRR without murmur. No peripheral edema. Pulmonary: Clear to auscultation bilaterally. Normal respiratory effort. Abdomen: positive bowel sounds, soft, non-tender. Normal liver and spleen size. Ext: No cyanosis, edema, or deformity Skin: No rash. Normal palpation of skin. Musculoskeletal: full range of motion; no joint tenderness. Normal digits and nails by inspection. No clubbing. Neurological Examination Mental status: awake and alert; oriented to person, place, year, and month; good attention. Normal mood and affect. Normal insight into condition. Speech/language: fluent; comprehension intact; object naming intact; repetition intact Cranial nerves: CN II: Visual cisneros intact to confrontation. PERRL. Normal conjunctivae and lids. Fundoscopic examwithin normal limits. No evidence of hemorrhage or papilledema. Optic nerve within normal limits. ink maker III, IV and : extraocular movements intact. No nystagmus. CN V: Facial sensation is intact to light touch. CN VII: Facial strength normal with symmetric movement. CN VIII: Hearing is grossly intact. CN IX and X: Soft palate elevates symmetrically in the midline CN XI: Shoulder shrug and sternocleidomastoid strength (R/L) 5/5 CN XII: Tongue is midline with normal movement; no fasciculations. Motor: Normal bulk and tone. No rigidity today. No pronator drift. SA EE EF WE WF DI HF KE KF DF PF Right 5 5 5 5 5 5 5 5 5 5 5 Left 5 5 5 5 5 5 5 5 5 5 5 Reflexes: Right Left Comments Biceps 2 2 Triceps 2 2 Brachioradialis 2 2 Patellar 2 2 Achilles 2 2 Jaw jerk Walden Babinski Down Down Coordination: Ujqala-ji-glrf intact bilaterally. Qouc-hu-ykwv intact bilaterally. Rapid alternatingmovements are bradykinetic bilaterally. No significant tremor today. Sensation: Comments Light touch Intact throughout Pin prick Intact throughout Temperature Intact throughout Vibration Intact throughout Proprioception Intact throughout Gait: Decreased arm swing bilaterally and mild decreased stride length. Negative Romberg. Extensive time was taken to review all available records received with the new patient referral, including MRI scans and other diagnostic imaging. In addition, extensive time was taken to query other[employer] databases, which include [employer], [employer], [employer], [employer], and radiology PACS system. Pertinent labs from the referring provider were reviewed as well. Assessment and Plan: 1. Parkinson's disease - AMB REFERRAL TO SPEECH THERAPY - rOPINIRole 0.5 MG Tab tablet; Take 1 tablet by mouth 3 times daily. X 2weeks, then 1 tablet twicea day x 2 weeks, then 1 tablet daily x 2 weeks. Then stop. Dispense: 90 tablet; Refill: 0 - CT HEAD WITHOUT CONTRAST; Future 2. Dysphagia, unspecified type - AMB REFERRAL TO SPEECH THERAPY - rOPINIRole 0.5 MG Tab tablet; Take 1 tablet by mouth 3 times daily. X 2weeks, then 1 tablet twicea day x 2 weeks, then 1 tablet daily x 2 weeks. Then stop. Dispense: 90 tablet; Refill: 0 - CT HEAD WITHOUT CONTRAST; Future 3. Tremor - AMB REFERRAL TO SPEECH THERAPY - rOPINIRole 0.5 MG Tab tablet; Take 1 tablet by mouth 3 times daily. X 2weeks, then 1 tablet twicea day x 2 weeks, then 1 tablet daily x 2 weeks. Then stop. Dispense: 90 tablet; Refill: 0 - CT HEAD WITHOUT CONTRAST; Future 4. Bradykinesia - AMB REFERRAL TO SPEECH THERAPY - rOPINIRole 0.5 MG Tab tablet; Take 1 tablet by mouth 3 times daily. X 2weeks, then 1 tablet twicea day x 2 weeks, then 1 tablet daily x 2 weeks. Then stop. Dispense: 90 tablet; Refill: 0 - CT HEAD WITHOUT CONTRAST; Future At this time Mr. Leavitt is doing well overall. 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 He will continue Sinemet 25/100 mg tid. Side effects of Sinemet were reviewed withthe patient which include but are not limited to Orthostatic Hypotension, peripheral edema, HTN, ischemia, cardiac arrythmia, chest pain, edema, flushing, hypotension, myocardial infarction, palpitations, phlebitis, syncope, dizziness, headache, depression, anxeity, confusion, abnormal dreams, polyneuropathy, insomnia, hallucinations, psychosis, abnormal behavior and gait, ataxia, confusion, delusions, delerium, disorientation, drowsiness, euphoria, extrapyramidal symptoms, falling, fatigue, horners syndrome, impulse control disorders, malaise, memory impairment, narcolepsy, nervousness, neuroleptic malignant syndrome, nightmares, numbness, on-off phenomenom, paranoia, paresthesia, pathological gambling, seizure, trismus, alopecia, sweating, rash, increased LFT's, increased alk phos, hot f lashes, hyperglycemia, weight gain and weight loss, nausea, constipation, vomiting, hiatal hernia, xerostomia, intestinal obstruction, diarrhea, dyspepsia, ileus, vomiting, abdominal distress, abdominal pain, anorexia, bruxism, duodenal ulcer, dysgeusia, dysphagia, GI hemmhorrage, GERD, bacteruria, priapism, proteinuria, urinary frequency, Leukocyturia, agranulocytosis, anemia, decreased hematocrit, decreased hemoglobin, hemolytic anemia, IgA vasculitis, leukopenia, malignant melanoma, Hypersensitivity reaction (angioedema, bullous lesions [including pemphigus-like reactions], pruritus, urticaria, Dyskinesia (12% to 17%; Rytary 2% to 5%; including choreiform, dystonic and other involuntary movements), increased creatine phosphokinase (=17%), back pain, excessive tremors, leg pain, muscle cramps, muscle twitching, shoulder pain, weakness, Blepharospasm, blurred vision, diplopia, glaucoma, increased intraocular pressure, mydriasis, oculogyric crisis (may be associated with acute dystonic reactions), Atelectasis (Duopa 8%), oropharyngeal pain (Duopa 8%), upper respiratory tract infection (Duopa 8%; Sinemet and Sinemet CR =2%), cough, dyspnea, hoarseness, Procedural complications (from device insertion: Duopa 57%), fever (=5%). We will wean him off of Ropinirole and see if his symptoms return. If they do then we will likely increase the carbidopa/levodopa. We will check a CT head without contrast at this time to rule out any hydrocephalus/NPH. We will send a referral to speech therapy at this time. We will see him back in the outpatient neurology clinic in 2 months. He will call us immediately should he have any worsening of symptoms or should any new symptoms arise. Greaterthan 51% of this visit was spent counseling the patient on her condition. 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 Advance Directives/Living Will 06/22/2018 12:28 PM [employer] 08/14/15 Advance Directives/Living Will 06/22/2018 12:31 PM [facility] Advanc e Directives: Healthcare POA and Living Will Declaration 08/14/15 Documents on File Type Date Recorded 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 Advance Directives/Living Will 06/22/2018 12:28 PM [employer] 08/14/15 Advance Directives/Living Will 06/22/2018 12:31 PM [facility] Advanc e Directives: Healthcare POA and Living Will Declaration 08/14/15 Documents on File Type Date Recorded 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 Advance Directive(s) 02/20/2020 12:14 PM Advance Directive(s) 11/26/2019 2:06 PM Advance Directive(s) 09/20/2019 8:59 AM Advance Directive(s) 09/05/2019 11:30 AM Latest Code Status on File Code Status Date Activated Date Inactivated Comments Full Code 11/25/2019 1:22 PM 12/04/2019 2:39 PM Full Code Order Discussed With: Patient Latest Code Status on File Code Status Date Activated Date Inactivated Comments Full Code 11/25/2019 1:22 PM 12/04/2019 2:39 PM Latest Code Status on File Code Status Date Activated Date Inactivated Comments Full Code 11/25/2019 1:22 PM 12/04/2019 2:39 PM Question Answer Comments Full Code Order Discussed With: Patient Summary Purpose Family History No Family History Records FoundNo Family History Records FoundNo Family History Records FoundNo Family History Records FoundNo Family History Records FoundNo Family History Records Found Medications Administered Section Inactive Administered Medications - up to 3 most recent administrations Medication Order MAR Action Action Date Dose Rate Site fluorescein-benoxinate 0.25-0.4 % 1 Drop (FLURESS) 1 Drop, BOTH EYES, DIRECTED, Starting on Mon02/08/22 at 1130, Until Mon02/08/22 at 2329, Administer for applanation tonometry. In the event of a Fluress shortage, administer Klondike-Fluor 1 drop into both eyes as directed for applanation tonometry Given 02/08/2022 11:30 AM EST 1 Drop Active Administered Medications - up to 3 most recent administrations Medication Order MAR Action Action Date Dose Rate Site fluorescein-benoxinate 0.25-0.4 % 1 Drop (FLURESS) 1 Drop, BOTH EYES, DIRECTED, Starting on Mon08/10/22 at 1130, Until Mon08/10/22 at 2329, Administer for applanation tonometry. In the event of a Fluress shortage, administer Klondike-Fluor 1 drop into both eyes as directed for applanation tonometry Given 08/10/2022 11:30 AM EDT 1 Drop tropicamide 0.5 % 1 Drop (MYDRIACYL) 1 Drop, BOTH EYES, DIRECTED, Starting on Mon08/10/22 at 1130, Until Mon08/10/22 at 2329, Administer for dilation Given 08/10/2022 11:30 AM EDT 1 Drop Additional Source Comments Reason for Visit (unrecogniz ed section and content) Reason Comments Other Reason Comments Medication Management Reason Comments Medication Refill Reason Comments Lab work done prior to appointment on and refill for po Reason Comments Established Patient Reason Comments Diabetes Primary Open Angle Glaucoma Evaluation Reason Comments Patient Question Reason Comments Results Reason Comments Lab Orders Reason Comments 6 month check Reason Onset Date Comments Refill Request 01/17/2022 Reason Comments Glaucoma Follow Up Pressure check Reason Comments Medication Question Refill Request Reason Comments Patient Question Reason Comments Medication Question Reason Comments Primary Open Angle Glaucoma Evaluation Diabetes Reason Comments Follow Up Reason Comments Orders (unrecognized sect ion and content) No Status Records FoundNo Status Records FoundNo Status Records FoundNo Status Records FoundNo Status Records FoundNo Status Records Found INFORMATION SOURCE (unrecogn ized section and content) DATE CREATED AUTHOR AUTHOR'S ORGANIZ ATION 12/20/2019 [facility] DATE CREATED AUTHOR AUTHOR'S ORGANIZ ATION 01/28/2020 [facility] DATE CREATED AUTHOR AUTHOR'S ORGANIZ ATION 12/14/2020 [facility] DATE CREATED AUTHOR AUTHOR'S ORGANIZ ATION 01/11/2023 [facility] DATE CREATED AUTHOR AUTHOR'S ORGANIZ ATION 02/25/2023 [facility] Source Comments (unrecognize d section and content) In the event this informatio n is protected by the Federal Confidentiality of Alcohol and Drug Abuse Patient Records regulations: The Federal rules restrict any use of the information to criminally investigate or prosecute any alcohol or drug abuse patient.[facility] Hospital[facility] the event this information is protected by the Federal Confidentiality of Alcohol and Drug Abuse Patient Records regulations: The Federal rules restrict any use of the information to criminally investigate or prosecute any alcohol or drug abuse patient.[facility] HospitalIn the event this information is protected by the Federal Confidentiality of Alcohol and Drug Abuse Patient Records regulations: The Federal rules restrict any use of the information to criminally investigate or prosecute any alcohol or drug abuse patient.[facility] HospitalIn the event this information is protected by the Federal Confidentiality of Alcohol and Drug Abuse Patient Records regulations: The Federal rules restrict any use of the information to criminally investigate or prosecute any alcohol or drug abuse patient.[facility] HospitalIn the event this information is protected by the Federal Confidentiality of Alcohol and Drug Abuse Patient Records regulations: The Federal rules restrict any use of the information to criminally investigate or prosecute any alcohol or drug abuse patient.[facility] HospitalIn the event this information is protected by the Federal Confidentiality of Alcohol and Drug Abuse Patient Records regulations: The Federal rules restrict any use of the information to criminally investigate or prosecute any alcohol or drug abuse patient.[facility] HospitalIn the event this information is protected by the Federal Confidentiality of Alcohol and Drug Abuse Patient Records regulations: The Federal rules restrict any use of the information to criminally investigate or prosecute any alcohol or drug abuse patient.[facility] HospitalIn the event this information is protected by the Federal Confidentiality of Alcohol and Drug Abuse Patient Records regulations: The Federal rules restrict any use of the information to criminally investigate or prosecute any alcohol or drug abuse patient.[facility] HospitalIn the event this information is protected by the Federal Confidentiality of Alcohol and Drug Abuse Patient Records regulations: The Federal rules restrict any use of the information to criminally investigate or prosecute any alcohol or drug abuse patient.[facility] HospitalIn the event this information is protected by the Federal Confidentiality of Alcohol and Drug Abuse Patient Records regulations: The Federal rules restrict any use of the information to criminally investigate or prosecute any alcohol or drug abuse patient.[facility] HospitalIn the event this information is protected by the Federal Confidentiality of Alcohol and Drug Abuse Patient Records regulations: The Federal rules restrict any use of the information to criminally investigate or prosecute any alcohol or drug abuse patient.[facility] HospitalIn the event this information is protected by the Federal Confidentiality of Alcohol and Drug Abuse Patient Records regulations: The Federal rules restrict any use of the information to criminally investigate or prosecute any alcohol or drug abuse patient.[facility] HospitalIn the event this information is protected by the Federal Confidentiality of Alcohol and Drug Abuse Patient Records regulations: The Federal rules restrict any use of the information to criminally investigate or prosecute any alcohol or drug abuse patient.[facility] HospitalIn the event this information is protected by the Federal Confidentiality of Alcohol and Drug Abuse Patient Records regulations: The Federal rules restrict any use of the information to criminally investigate or prosecute any alcohol or drug abuse patient.[facility] HospitalIn the event this information is protected by the Federal Confidentiality of Alcohol and Drug Abuse Patient Records regulations: The Federal rules restrict any use of the information to criminally investigate or prosecute any alcohol or drug abuse patient.[facility] HospitalIn the event this information is protected by the Federal Confidentiality of Alcohol and Drug Abuse Patient Records regulations: The Federal rules restrict any use of the information to criminally investigate or prosecute any alcohol or drug abuse patient.[facility] HospitalIn the event this information is protected by the Federal Confidentiality of Alcohol and Drug Abuse Patient Records regulations: The Federal rules restrict any use of the information to criminally investigate or prosecute any alcohol or drug abuse patient.[facility] HospitalIn the event this information is protected by the Federal Confidentiality of Alcohol and Drug Abuse Patient Records regulations: The Federal rules restrict any use of the information to criminally investigate or prosecute any alcohol or drug abuse patient.[facility] HospitalIn the event this information is protected by the Federal Confidentiality of Alcohol and Drug Abuse Patient Records regulations: The Federal rules restrict any use of the information to criminally investigate or prosecute any alcohol or drug abuse patient.[facility] HospitalIn the event this information is protected by the Federal Confidentiality of Alcohol and Drug Abuse Patient Records regulations: The Federal rules restrict any use of the information to criminally investigate or prosecute any alcohol or drug abuse patient.[facility] HospitalIn the event this information is protected by the Federal Confidentiality of Alcohol and Drug Abuse Patient Records regulations: The Federal rules restrict any use of the information to criminally investigate or prosecute any alcohol or drug abuse patient.[facility] HospitalIn the event this information is protected by the Federal Confidentiality of Alcohol and Drug Abuse Patient Records regulations: The Federal rules restrict any use of the information to criminally investigate or prosecute any alcohol or drug abuse patient.[facility] HospitalIn the event this information is protected by the Federal Confidentiality of Alcohol and Drug Abuse Patient Records regulations: The Federal rules restrict any use of the information to criminally investigate or prosecute any alcohol or drug abuse patient.[facility] HospitalIn the event this information is protected by the Federal Confidentiality of Alcohol and Drug Abuse Patient Records regulations: The Federal rules restrict any use of the information to criminally investigate or prosecute any alcohol or drug abuse patient.[facility] HospitalIn the event this information is protected by the Federal Confidentiality of Alcohol and Drug Abuse Patient Records regulations: The Federal rules restrict any use of the information to criminally investigate or prosecute any alcohol or drug abuse patient.[facility] HospitalIn the event this information is protected by the Federal Confidentiality of Alcohol and Drug Abuse Patient Records regulations: The Federal rules restrict any use of the information to criminally investigate or prosecute any alcohol or drug abuse patient.[facility] Teams (unrecognized sec tion and content) Logistics Solution Manager Relationship Specialty Start Date End Date Yosvany Garcia CNP [address] [place] [address] PCP - General Family Practice 08/11/20 Juliet Johnson MD [address] [place] [phone] Cardiology 01/18/21 Logistics Solution Manager Relationship Specialty Start Date End Date Yosvany Garcia CNP [address] [place] [address] PCP - General Family Practice 08/11/20 Juliet Johnson MD [address] [place] [address] [phone] Cardiology 01/18/21 Logistics Solution Manager Relationship Specialty Start Date End Date Yosvany Garcia CNP [address] [place] [address] PCP - General Family Practice 08/11/20 Juliet Johnson MD [address] [place] [address] [phone] Cardiology 01/18/21 Logistics Solution Manager Relationship Specialty Start Date End Date Yosvany Garcia CNP [address] [place] [address] PCP - General Family Practice 08/11/20 Juliet Johnson MD [address] [place] [address] [phone] Cardiology 01/18/21 Logistics Solution Manager Relationship Specialty Start Date End Date Yosvany Garcia, OCCUPATIONAL THERAPY DEPARTMENT CHAIR [address] [place] [address] PCP - General Family Practice 08/11/20 Juliet Johnson MD [address] [place] [address] [phone] Cardiology 01/18/21 Logistics Solution Manager Relationship Specialty Start Date End Date Yosvany Garcia OCCUPATIONAL THERAPY DEPARTMENT CHAIR [address] [place] [address] PCP - General Family Practice 08/11/20 Juliet Johnson MD [address] [place] [address] [phone] Cardiology 01/18/21 Logistics Solution Manager Relationship Specialty Start Date End Date Yosvany Garcia CNP [address] [place] [address] PCP - General Family Medicine 08/11/20 Juliet Johnosn MD [address] [place] [address] [phone] Cardiology 01/18/21 Logistics Solution Manager Relationship Specialty Start Date End Date Yosvany Garcia CNP [address] [place] [address] PCP - General Family Medicine 08/11/20 Juliet Johnson MD [address] [place] [address] [phone] Cardiology 01/18/21 Logistics Solution Manager Relationship Specialty Start Date End Date Yosvany Garcia OCCUPATIONAL THERAPY DEPARTMENT CHAIR [address] [place] [address] PCP - General Family Medicine 08/11/20 Juliet Johnson MD [address] [place] [address] [phone] Cardiology 01/18/21 Logistics Solution Manager Relationship Specialty Start Date End Date Edward Yosvany Sonido, OCCUPATIONAL THERAPY DEPARTMENT CHAIR [address] [place] [address] PCP - General Family Medicine 08/11/20 Juliet Johnson MD [address] [place] [address] [phone] Cardiology 01/18/21 Logistics Solution Manager Relationship Specialty Start Date End Date NevaYosvany castorena CNP [address] [place] [address] PCP - General Family Medicine 08/11/20 Juliet Johnson MD [address] [place] [address] [phone] Cardiology 01/18/21 Logistics Solution Manager Relationship Specialty Start Date End Date Edward Montserrat Sonido OCCUPATIONAL THERAPY DEPARTMENT CHAIR [address] [place] [address] PCP - General Family Medicine 08/11/20 Juliet Johnson MD [address] [place] [address] [phone] Cardiology 01/18/21 Logistics Solution Manager Relationship Specialty Start Date End Date NevaMontserrat castorena OCCUPATIONAL THERAPY DEPARTMENT CHAIR [address] [place] [address] PCP - General Family Medicine 08/11/20 Juliet Johnson MD [address] [place] [phone] Cardiology 01/18/21 Logistics Solution Manager Relationship Specialty Start Date End Date Montserrat Garcia Sonido, OCCUPATIONAL THERAPY DEPARTMENT CHAIR [address] [place] [address] PCP - General Family Medicine 08/11/20 Juliet Johnson MD [address] [place] [phone] Cardiology 01/18/21 Logistics Solution Manager Relationship Specialty Start Date End Date Juliet Boss [address] [place] [address] PCP - General Family Medicine 08/10/22 Juliet Johnson MD [address] [place] [address] [phone] Cardiology 01/18/21 Logistics Solution Manager Relationship Specialty Start Date End Date Juliet Boss [address] [place] [address] PCP - General Family Medicine 08/10/22 Juliet Johnson MD [address] [place] [address] Cardiology 01/18/21 Logistics Solution Manager Relationship Specialty Start Date End Date Juliet Boss [address] [place] [address] PCP - General Family Medicine 08/10/22 Juliet Johnson MD [address] [place] [address] [phone] Cardiology 01/18/21 Logistics Solution Manager Relationship Specialty Start Date End Date Juliet Boss MD [address] [place] [address] PCP - General Family Medicine 08/10/22 Juliet Johnson MD [address] [place] [phone] Cardiology 01/18/21 Logistics Solution Manager Relationship Specialty Start Date End Date Noemi Beckman [address] [place] [address] PCP - General 02/09/23 Juliet Johnson MD [address] [place] [phone] Cardiology 01/18/21 Logistics Solution Manager Relationship Specialty Start Date End Date Noemi Beckman [address] [place] [address] PCP - General 02/09/23 Juliet Johnson MD [address] [place] [phone] Cardiology 01/18/21 Logistics Solution Manager Relationship Specialty Start Date End Date Noemi Beckman [address] [place] [address] PCP - General 02/09/23 Juliet Johnson MD [address] [place] [address] 45538 Cardiology 01/18/21 FOR RECORDS PERTAINING TO PATIENTS WHO ARE OR HAVE BEEN ENROLLED IN A CHEMICAL DEPENDENCY/SUBSTANCEABUSE PROGRAM, SOME INFORMATION MAY BE OMITTED. This clinical summary was aggregated from multiple sources. Caution should be exercised in using it in the provision of clinical care. This summary normalizes information from multiple sources, and as a consequence, information in this document may materially change the coding, format and clinical context of patient data. In addition, data may be omitted in some cases. CLINICAL DECISIONS SHOULD BE BASED ON THE PRIMARY CLINICAL RECORDS. [facility]. provides no warranty or guarantee of the accuracy or completeness of information in this document.
[2023-03-25 12:07] LABS: ALB/GLOB Ratio 1.1 RATIO (0.9-2.4); AST(SGOT) 10 U/L (15-37); Alanine Aminotransfer ALT/SGPT 13 U/L (16-61); Albumin, Serum 3.7 g/dL (3.2-5.0); Alkaline Phosphatase 102 U/L (45-117); Anion Gap 4 (5-15); BUN 40 mg/dL (7-18); BUN/Creat Ratio 18.3 RATIO (10-20); Calcium,Total 9.1 mg/dL (8.5-10.1); Chloride 110 mmol/L (98-107); Creatinine, Serum 2.19 mg/dL (0.70-1.30); EST Glomerular Filtration Rate 31 mL/min (>60); Est Glom Filt Rate - Afr Amer 38 mL/min (>60); Estimated Creatinine Clearance 25.76 ml/min; Globulin 3.3 g/dL (2.2-4.2); Glucose 111 mg/dL (74-106); Potassium 4.9 mmol/L (3.5-5.1); Sodium Level 141 mmol/L (136-145)
[2023-03-25 12:23] LABS: International Normalized Ratio 1.1; Prothrombin Time (Protime)PT. 13.7 SECONDS (11.7-14.9)
[2023-03-25 13:46] VITALS: BP 132/67; PULSE 69; RESP 14; O2SAT 96
== END 2023-03-25 13:47 | disposition home or self-care (01) ==
PROVIDERS: Nurse Practitioner; Emergency Provider Emergency Medicine; Visit Provider Emergency Medicine
DX: I48.0 Paroxysmal atrial fibrillation (principal); I13.0 Hypertensive heart and chronic kidney disease with heart failure and stage 1 through stage 4 chronic kidney disease, or unspecified chronic kidney disease; I50.9 Heart failure, unspecified; E11.22 Type 2 diabetes mellitus with diabetic chronic kidney disease; N18.9 Chronic kidney disease, unspecified; I25.10 Atherosclerotic heart disease of native coronary artery without angina pectoris; E78.00 Pure hypercholesterolemia, unspecified; Z79.899 Other long term (current) drug therapy; Z87.891 Personal history of nicotine dependence; Z95.1 Presence of aortocoronary bypass graft; Z95.0 Presence of cardiac pacemaker; Z95.5 Presence of coronary angioplasty implant and graft
CPT/HCPCS: 71045; 80053; 85025; 85610; 93005; 99283; A4216

== ENCOUNTER → 2023-03-28 | Outpatient (CLI) | payer MEDICARE, OTHER, SELFPAY ==
[2023-03-28 15:34] LABS: Ferritin 51 ng/mL (26-388); Iron 77 ug/dL (65-175); Thyroid Stim Hormone (TSH) 1.45 uIU/mL (0.358-3.74)
== END | disposition home or self-care (01) ==
LOC: MTLAB 12:34
PROVIDERS: Referring Provider Psychiatry & Neurology Neurology; Visit Provider Psychiatry & Neurology Neurology
DX: Z86.2 Personal history of diseases of the blood and blood-forming organs and certain disorders involving the immune mechanism (principal)
CPT/HCPCS: 36415; 82728; 83540; 84443